=== PATIENT | male | born 1945 | race Caucasian/White ===

== ENCOUNTER 2023-07-28 15:12 | Inpatient (IN) | payer MEDICARE, OTHER, SELFPAY ==
--- NOTE | ~2023-07-28 | XR_ITS ---
EXAMINATION: RADIOGRAPH SKULL, CHEST AND ABDOMEN CLINICAL INDICATION: Pre-MRI screening. COMPARISON: No similar priors. TECHNIQUE: 2 views of the skull. 2 views of the chest. Single AP supine view of the abdomen. FINDINGS: No unexpected radiopaque foreign bodies. Left humeral head surgical anchors are seen. Normal appearance of the cardiomediastinal silhouette. No focal airspace opacities, pleural effusion or pneumothorax. Nonobstructive bowel gas pattern. Moderate to large degree of colonic stool burden. No acute osseous findings. XR/XR pre mri screening IMPRESSION: 1. No unexpected radiopaque foreign bodies. 2. Clear lungs. 3. Nonobstructive bowel gas pattern. 4. Moderate to large degree of colonic stool burden.
--- NOTE | ~2023-07-28 | XR_ITS ---
EXAMINATION: XR HAND, LEFT CLINICAL INFORMATION: Fracture evaluation COMPARISON: None available. TECHNIQUE: PA, lateral, and oblique views of the left hand. FINDINGS: Advanced degenerative change observed at the first MCP joint. The second through fifth PIP and DIP joints appear unremarkable. There is advanced degenerative change seen, in the radial aspect of the wrist including the first CMC joint. There is no evidence though for fracture, dislocation, or destructive process. XR/XR hand LT 2V IMPRESSION: No fracture seen.
--- NOTE | ~2023-07-28 | MR_ITS ---
EXAMINATION: MR BRAIN WITHOUT CONTRAST CLINICAL INFORMATION: Evaluate for Wernicke Korsakoff syndrome COMPARISON: None. TECHNIQUE: MRI of the brain was obtained using routine sequences without contrast. FINDINGS: No acute infarct. No acute intracranial hemorrhage or extra-axial fluid collection. Moderate global cerebral volume loss. Trace nonspecific T2 FLAIR hyperintensity in the periventricular white matter. Focal gliosis versus chronic lacunar infarct along the callososeptal interface of the right body of the corpus callosum. No findings to suggest Wernicke encephalopathy. Specifically, no evidence of signal abnormality or diffusion restriction involving the mammillary bodies, medial thalami, or periaqueductal andrew matter. No mass lesion, mass effect, or herniation pattern. Normal intracranial arterial and dural venous sinus flow voids. Normal appearance of the midline structures. The orbits are grossly unremarkable. Trace ethmoid air cell mucosal thickening. Left mastoid effusion. Partially imaged cervical spondylosis, including hypertrophic facet arthropathy. MR/MR head/brain wo con IMPRESSION: No acute intracranial abnormality. No findings to suggest Wernicke encephalopathy.
--- NOTE | ~2023-07-28 | XR_ITS ---
EXAMINATION: XR SHOULDER, RIGHT CLINICAL INFORMATION: History of surgery, rule out metal prior to MRI COMPARISON: None available. TECHNIQUE: AP external rotation, Grashey, scapular Y, views of the right shoulder. FINDINGS: No fracture or dislocation is evident. Calcification is evident adjacent to the humeral head, likely reflecting calcific tendinosis. No metallic foreign body is evident. XR/XR shoulder RT min 2V IMPRESSION: 1. No metallic foreign body. 2. Calcification adjacent to the humeral head likely on the basis of calcific tendinosis.
[2023-07-28 15:46] VITALS: BP 101/55; PULSE 78; RESP 18; TEMP 36.8; O2SAT 98; BMI 19.6
--- NOTE | 2023-07-28 15:56 | PC.ADMIT ---
Addendum entered by Kaye Spencer RN 07/28/23 16:03: Patient's phone is not charged so he is unable to retrieve the phone number for Ernestina Landers his significant other. Original Note: 78 year old white male admitted to [facility] at 1525 via ambulance from [facility] medical floor for short term geriatric psychiatric stay for Paranoid delusions. Patient also has diagnoses of alcohol use, cognitive decline, Glaucoma, migraines and advanced dementia. Patient is calm and cooperative. he is talkative. He signed a CV. He is independently ambulatory with a steady gait. He thinks that he is here because he had a fall. His son Santa is his HCP, . He has a significant other Ernestina who he said can also have information. 98.2-18-78-98% O2 Sat on room air and B/P 101/55. Skin is clear. Weight 133 pounds standing. He has allergies to mold and sulfa. He is oriented person and time, confused about place and situation.
--- NOTE | 2023-07-28 19:07 | P.CONHOSP_ITS ---
History of Present Illness Data of Consult Service Date: 07/28/23 Requesting physician: Pancho Lee Primary Care Provider: Unknown Physician HPI Reason for consult: medical H&p 78 year old male with history of alcohol use disorder and dementia admitted to geriatric psychiatry with consult placed to hospitalist service for medical H&P. While at [facility], hematology studies were unremarkable. Renal function was baseline, electrolyte levels normal. Glucose normal. No complaints except for an occasional dry cough which started Friday. No associated symptoms including fevers, chills, sore throat, congestion, abdominal pain, nausea, vomiting, diarrhea, shortness of breath, wheezing, chest pain. No known sick contacts. He is a former smoker who quit 12 years ago. He does report daily alcohol use and has cut back to 2 beers on a daily basis. No drug use. Also reporting occasional bilateral low back pain with radiation into the legs. No known trauma. No weakness or paresthesias. No saddle anesthesia or acute bowel/bladder dysfunction. Review of Systems Review of Systems: General: No fevers, malaise, unintentional weight loss HEENT: No blurred vision, diplopia. No sore throat, nasal congestion, rhinorrhea, sinus pain, ear pain Cardiovascular: No chest pain, palpitations, or leg edema Respiratory: No shortness of breath, wheezing. +cough GI: No abdominal pain, nausea, vomiting, diarrhea, constipation, melena, hematochezia : No dysuria, hematuria, increased urinary frequency, decreased urinary output MSK: No myalgia. +back pain Neuro: No headaches, weakness, paresthesias Skin: No rashes or lesions PMFSH Medical History Alcohol use disorder Dementia Social History Household Members: None Housing: Apartment Do you presently have visiting nurse or other home services: Yes Patient Tobacco Use Status: Former Tobacco user Tobacco use type: Cigarette Smoked in Last 30 Days: No e-Cigarette/Vaping Use: Never Used Patient Interested in Nicotine Replacement: No Patient Given Instructions on How to Stop Smoking: No Second Hand Smoke Exposure: No Use of substances other than those prescribed or required for medical reasons: No Last Used Substance: Unknown Currently Displaying Signs/Symptoms of Drug Intoxication Withdrawal: No Any prior treatment program specific to substance use: No Have you been hit, kicked, punched, or otherwise hurt by someone within the past year? If so, by whom?: No Do you feel safe in your current relationship?: Yes Is there a partner from a previous relationship who is making you feel unsafe now?: No Are you made to feel afraid or neglected: No [employer] Healthcare Practices: [facility] Advance Directives: No Advance Directives Information Provided: No Do you have a plan to hurt others: No Plan Recently lost weight without trying: No Eating poorly because of decreased appetite: No Nutrition Risks: No Nutritional Risk Poor oral hygiene: No Meds Allergies Allergy/AdvReac Type Severity Reaction Status Date / Time Sulfa (Sulfonamide Allergy Severe ANAPHYLAXIS Unverified 11/11/19 17:55 Antibiotics) [SULFA (SULFONAMIDE ANTIBIOTICS)] Active Medications: Current Medications Acetaminophen (Acetaminophen 325 Mg Tablet) 650 mg PO Q6H PRN PRN Reason: Headache/Pain Mild Scale (1-3) Al Hydroxide/Mg Hydroxide (Magnesium Hydrox/Alum Hydrox 30 Ml Oral.Susp) 30 ml PO Q6H PRN PRN Reason: Heartburn/Nausea Guaifenesin (Guaifenesin 200 Mg/10 Ml 10 Ml Liquid) 10 ml PO Q6H PRN PRN Reason: Cough Hydroxyzine HCl (Hydroxyzine Hcl 25 Mg Tablet) 25 mg PO Q6H PRN PRN Reason: Anxiety Lidocaine (Lidocaine 4 % Patch Adh..Patch) 2 patch TRANSDERMA DAILY PRN; Protocol PRN Reason: bilateral low back pain Magnesium Hydroxide (Milk Of Magnesia 30 Ml Oral.Susp) 30 ml PO DAILY PRN PRN Reason: Constipation Trazodone HCl (Trazodone Hcl 50 Mg Tablet) 50 mg PO BEDTIME MRX1 PRN PRN Reason: Insomnia Home Medications ?Medication ?Instructions ?Recorded ?Confirmed ?Last Taken ?Type brimonidine 0.15 % eye drops 1 drp ophthalmic (eye) 3XD Glaucoma 07/28/23 07/28/23 07/28/23 08:44 History 0.2% naltrexone microspheres 380 mg 380 mg IM ONCE 07/28/23 07/28/23 06/18/23 History intramuscular suspension,extended release (Vivitrol) rimegepant 75 mg disintegrating 75 mg PO Q24H PRN Migraine Headache 07/28/23 07/28/23 Unknown History tablet ([facility] ODT) thiamine HCl (vitamin B1) 100 mg 100 mg PO 1XD supplement 07/28/23 07/28/23 07/28/23 08:44 History tablet Physical Exam Vital Signs and Narrative: Vital Signs: Last Vital Signs Temp 98.2 F 07/28/23 15:46 Pulse 78 07/28/23 15:46 Resp 18 07/28/23 15:46 BP 101/55 L 07/28/23 15:46 Pulse Ox 98 07/28/23 15:46 O2 Del Method Room Air 07/28/23 15:46 BMI result Body Mass Index 19.6 Constitutional - Awake and Alert, No apparent distress Eyes - PERRLA, EOMI Cardiovascular - S1S2, RRR, No edema Respiratory - Normal lung expansion, Normal respiratory effort, No respiratory distress, CTA bilaterally Gastrointestinal - NT / ND; +BS; No rebound or guarding Extremities - no calf tenderness bilaterally, no swelling Musculoskeletal - Normal inspection, normal ROM Skin - Warm/Dry Neurological - Alert & oriented x3, CN II-XII in tact, 5/5 strength BUE and BLE Psychological - Appropriate affect Assessment and Plan (1) Routine medical exam: Status: Acute Plan 78 year old male with history of alcohol use disorder and dementia admitted to geriatric psychiatry with consult placed to hospitalist service for medical H&P. # unspecified dementia -plan per Psychiatry. Patient is alert and oriented x3 on exam and pleasant # alcohol use disorder -plan per Psychiatry -recommend continuing thiamine # bilateral low back pain with right-sided radiculopathy -Tylenol p.r.n., lidocaine patches p.r.n. # acute cough -suspect viral versus allergic -check COVID-19, RSV, influenza -guaifenesin p.r.n. Thank you for allowing me to participate in this consult. Signing off at this time. Please do not hesitate to call for further questions or for any acute medical issues.
[2023-07-28 19:49] VITALS: BP 176/77; PULSE 91; RESP 16; TEMP 37.5; O2SAT 98
[2023-07-28] MEDS: Lidocaine 4 % Patch ADH..PATCH 2 PATCH TRANSDERMA (20:56)
[2023-07-28] MEDS: traZODone HCL 50 MG TABLET PO ×2 (20:59→23:49)
[2023-07-28] MEDS: Acetaminophen 325 MG TABLET 650 MG PO (21:00)
[2023-07-28] MEDS: Thiamine HCL 100 MG TABLET PO (21:00)
[2023-07-28] MEDS: Brimonidine Tartrate 0.2% Oph 5 ML BOTTLE 1 DROP EYE-BOTH (21:40)
[2023-07-28] MEDS: QUEtiapine Fumarate 25 MG TABLET PO (22:22)
[2023-07-29] MEDS: Acetaminophen 325 MG TABLET 650 MG PO ×2 (03:17→14:54)
[2023-07-29 03:19] VITALS: BP 148/74; PULSE 106; RESP 16; O2SAT 98
--- NOTE | 2023-07-29 08:01 | P.HPPS_ITS ---
[facility] Date of Service: 07/29/23 Chief Complaint: Adjustment disorder,w/mixed disturbance of emotion Sources of Information: patient interviewed, chart reviewed and crisis/core team assessment reviewed HPI Subjective Notes: Castro Warning and Conditional Voluntary Narrative: The patient is a 78-year-old male, single, father of 2 adult children, retired Community Mental Health worker, living alone with some social support referred from the emergency room of another hospital for cognitive impairment, auditory hallucinations and disorganized behavior in the context of alcohol use disorder chronic and progressive deterioration in his cognition. The patient was rushed to the emergency room, medically cleared, assessed by crisis and transferring to this facility for psychiatric stabilization. On admission the patient was pleasant, confused but easily redirectable he denies active symptoms of alcohol withdrawal, he was already assessed in the emergency room about possibility of alcohol withdrawal and there were no evidence of that. On the intake interview, the patient reported that he was not feeling well for the last month with headaches, confusion and poor short-term memory. The patient was a very poor historian during the interview but apparently he minimized his alcohol use disorder. On admission he denies auditory hallucinations or paranoia and he adamantly denies any psychotic symptoms. According to the crisis assessment the patient has hallucinations and delusions and they were thinking of most likely Wernicke-Korsakoff syndrome. The patient was able to contract for safety he adamantly denies active depressive symptoms even though that in the past he was treated with antidepressants. He was unable to provide a list of prior trials. We will try to gather more collateral information since the patient is unable to provide more details. Past Psychiatric History: The patient reported that he had been following outpatient services in the [facility] clinic he has tried antidepressants in the past probably for the last 5 years. He reported that he was admitted in the hospital for psychiatric reasons in the past unable to provide any details. Medical Evaluation Reviewed: Yes [facility] Medical History (Updated 07/29/23 @ 08:02 by Jonh Kat) Alcohol use disorder Dementia Family History: He reported that 1 of his son suffers from depression Social History: The patient is the oldest of 2 children, his milestones were achieved at expected age and he was raised by his parents. He reported that he went to college and he has to decrease and he has worked as a community mental health worker and also in other jobs. He lives with his life partner at this moment. Substance History: He denies current use of opioids or cocaine, he minimized his use of alcohol he denies current use of tobacco he quit several years ago. Trauma History: Denies Diagnostics Vital Signs (24Hr): Vital Signs - 24 hr 07/28/23 15:46 07/28/23 19:49 07/29/23 03:19 Temperature 98.2 F 99.5 F Pulse Rate 78 91 106 H Respiratory Rate 18 16 16 Blood Pressure 101/55 L 176/77 H 148/74 H Pulse Oximetry 98 98 98 Oxygen Delivery Method Room Air Room Air Room Air BMI result Body Mass Index 19.6 Labs 07/29/23 08:35 Meds/Allergies Meds Home Medications ?Medication ?Instructions ?Recorded ?Confirmed ?Type brimonidine 0.15 % eye drops 1 drp ophthalmic (eye) 3XD Glaucoma 07/28/23 07/28/23 History naltrexone microspheres 380 mg 380 mg IM ONCE 07/28/23 07/28/23 History intramuscular suspension,extended release (Vivitrol) rimegepant 75 mg disintegrating 75 mg PO Q24H PRN Migraine Headache 07/28/23 07/28/23 History tablet (Nurtec ODT) thiamine HCl (vitamin B1) 100 mg 100 mg PO 1XD supplement 07/28/23 07/28/23 History tablet Allergies Allergies Allergy/AdvReac Type Severity Reaction Status Date / Time Sulfa (Sulfonamide Allergy Severe ANAPHYLAXIS Unverified 11/11/19 17:55 Antibiotics) [SULFA (SULFONAMIDE ANTIBIOTICS)] Mental Status Exam Mental Status Exam Patient Appearance: Appropriate (On hospital gowns) Patient Orientation: Person and Situation Level of Consciousness: Awake and Appropriate Patient Behavior: Guarded and Passive Mood Description: Withdrawn Affect Description: Constricted Patient Cognition Impaired: Yes Ability to Follow Directions: Good Speech Pattern: Clear Hallucinations: None Delusions: Ideas of Reference Thought Process: Distracted and Slowed Thinking Thought Content: positive for [place], positive for [place] and positive for Poverty of Content Judgement: Fair Assessment & Plan Assessment & Plan (1) Alcohol abuse with alcohol-induced mental disorder: Status: Acute Code(s): F10.188 - Alcohol abuse with other alcohol-induced disorder Plan The patient is a 78-year-old male with a past history of alcohol use disorder who was brought to the emergency room of another hospital for psychotic symptoms at the this moment currently denies. 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 Plan 1. Gather collateral information. We will try to contact his family and start working on proper diagnosis and treatment plan. 2. Continue with medications as prescribed. 3. We will continue with medical workout. 4. MRI without contrast scheduled tomorrow to rule out Wernicke-Korsakoff. 5. 15 minute checks since the patient is able to contract for safety. Patient educated on: diagnosis and therapeutic strategies Reason for continued inpatient stay Substantial Risk for: inability to function, rapid decompensation and med/psych decompensation Statement Statement: I have reviewed the history and physical and performed a pertinent examination on my patient. No changes have occurred unless specified. If the History and Physical was not performed prior to admission, the Hospitalist's service will be consulted for completing the admission physical. Time Spent With Patient Time: Total time managing care of this patient today __45__ minutes.
[2023-07-29 08:50] LABS: Influenza A PCR NEGATIVE (Negative); Influenza B PCR NEGATIVE (Negative); Resp Syncy Virus RNA Qual PCR NEGATIVE (Negative); SARS COV2 PCR INHOUSE NEGATIVE (Negative)
[2023-07-29 09:04] LABS: Alanine Aminotransferase 14 U/L (0-40); Albumin Level 3.5 g/dL (3.5-5.0); Alkaline Phosphatase 47 U/L (39-117); Anion Gap 12 (12-20); Aspartate Amino Transferase 21 U/L (5-37); Bilirubin Total 1.1 mg/dL (0.0-1.0); Blood Urea Nitrogen 17 mg/dL (9-16); Calcium 9.6 mg/dL (8.4-10.2); Carbon Dioxide 28 mmol/L (22-29); Chloride 103 mmol/L (96-108); Cholesterol 173 mg/dL (<200); Creatinine Clr Calc Pharmacy 57.4; Estimated Glomerular Filt Rate > 60; Glucose Fasting 109 mg/dL (60-99); HDL Cholesterol 77 mg/dL (>40); LDL Cholesterol Calculated 85 mg/dL (<100); Sodium 139 mmol/L (135-145); Total Protein 6.8 g/dL (6.5-8.0); Triglycerides 56 mg/dL (<150)
[2023-07-29 13:48] VITALS: BP 137/65; PULSE 87; RESP 18; TEMP 37.8; O2SAT 99
[2023-07-29] MEDS: Brimonidine Tartrate 0.2% Oph 5 ML BOTTLE 1 DROP EYE-BOTH ×2 (14:55→20:12)
[2023-07-29] MEDS: Thiamine HCL 100 MG TABLET PO (14:55)
[2023-07-29] MEDS: SUMAtriptan succinate 50 MG TABLET PO (16:57)
[2023-07-29 20:00] VITALS: BP 141/67; PULSE 83; TEMP 37.1; O2SAT 99
[2023-07-29] MEDS: traZODone HCL 50 MG TABLET PO (20:12)
[2023-07-30] MEDS: Acetaminophen 325 MG TABLET 650 MG PO (01:46)
[2023-07-30] MEDS: traZODone HCL 50 MG TABLET PO (01:46)
[2023-07-30] MEDS: Lidocaine 4 % Patch ADH..PATCH 2 PATCH TRANSDERMA (01:50)
[2023-07-30 08:10] VITALS: BP 142/66; PULSE 76; RESP 18; TEMP 36.4; O2SAT 98
[2023-07-30] MEDS: Thiamine HCL 100 MG TABLET PO (08:39)
[2023-07-30] MEDS: Brimonidine Tartrate 0.2% Oph 5 ML BOTTLE 1 DROP EYE-BOTH ×3 (08:39→21:21)
--- NOTE | 2023-07-30 12:38 | P.PNPSI_ITS ---
Subjective Subjective Date of Service: 07/30/23 Reason For Visit: Adjustment disorder,w/mixed disturbance of emotion Subjective Notes: Conditional Voluntary Interim History: The nursing staff reported the patient presented himself with bright affect, cooperative very confused. Yesterday he complained of migraines and we put him back on Imitrex. He slept well last night. The social security assessor reported the son and the daughter wants him to be placed for safety. Yesterday we order MRI to rule out Wernicke-Korsakoff and assess the integrity of the mammillary bodies. Since he had surgery on his shoulder in the past and he has dental implants we order x-ray and x-ray of the head. Most likely he was of an MRI pretty soon. On interview the patient is pleasant cooperative he has been assessed by the occupational therapist regarding his cognition. Mental Status Exam Mental Status Exam Patient Appearance: Appropriate Patient Orientation: Person and Situation Level of Consciousness: Awake and Appropriate Patient Behavior: Appropriate and Passive Affect Description: Constricted Patient Cognition Impaired: Yes Ability to Follow Directions: Good Speech Pattern: Clear Hallucinations: None Delusions: Not Present Thought Process: Distracted and Slowed Thinking Thought Content: positive for [place] and positive for Poverty of Content Judgement: Poor Diagnostics Vital Signs (24Hr): Vital Signs - 24 hr 07/29/23 13:48 07/29/23 20:00 07/30/23 08:10 Temperature 100.1 F 98.7 F 97.5 F Pulse Rate 87 83 76 Respiratory Rate 18 18 Blood Pressure 137/65 141/67 H 142/66 H Pulse Oximetry 99 99 98 Oxygen Delivery Method Room Air Room Air Room Air BMI result Body Mass Index 19.6 Labs 07/29/23 08:35 Labs: Laboratory Results - last 48 hr 07/29/23 07/29/23 06:42 08:35 Sodium 139 Potassium 4.0 Chloride 103 Carbon Dioxide 28 Anion Gap 12 BUN 17 H Creatinine 0.89 Estim Creat Clear Calc 57.4 Estimated GFR > 60 Fasting Glucose 109 H Calcium 9.6 Total Bilirubin 1.1 H AST 21 ALT 14 Alkaline Phosphatase 47 Total Protein 6.8 Albumin 3.5 Triglycerides 56 Cholesterol 173 LDL Cholesterol, Calc 85 HDL Cholesterol 77 Influenza Type A (PCR) NEGATIVE Influenza Type B (PCR) NEGATIVE RSV RNA Qual (PCR) NEGATIVE SARS-CoV-2 RNA (RT-PCR) NEGATIVE Imaging Radiology Impressions: ITS Impressions Shoulder X-Ray 07/30/23 09:55 IMPRESSION: 1. No metallic foreign body. 2. Calcification adjacent to the humeral head likely on the basis of calcific tendinosis. Orbit X-Ray 07/30/23 11:07 IMPRESSION: 1. No unexpected radiopaque foreign bodies. 2. Clear lungs. 3. Nonobstructive bowel gas pattern. 4. Moderate to large degree of colonic stool burden. Medications Medications Current Medications Acetaminophen (Acetaminophen 325 Mg Tablet) 650 mg PO Q6H PRN PRN Reason: Headache/Pain Mild Scale (1-3) Last Admin: 07/30/23 01:46 Dose: 650 mg Al Hydroxide/Mg Hydroxide (Magnesium Hydrox/Alum Hydrox 30 Ml Oral.Susp) 30 ml PO Q6H PRN PRN Reason: Heartburn/Nausea Brimonidine Tartrate (Brimonidine Tartrate 0.2% Oph 5 Ml Bottle) 1 drop EYE- BOTH TID NOBLE Last Admin: 07/30/23 08:39 Dose: 1 drop Guaifenesin (Guaifenesin 200 Mg/10 Ml 10 Ml Liquid) 10 ml PO Q6H PRN PRN Reason: Cough Lidocaine (Lidocaine 4 % Patch Adh..Patch) 2 patch TRANSDERMA DAILY PRN; Protocol PRN Reason: bilateral low back pain Last Admin: 07/30/23 01:50 Dose: 2 patch Magnesium Hydroxide (Milk Of Magnesia 30 Ml Oral.Susp) 30 ml PO DAILY PRN PRN Reason: Constipation Non-Formulary Medication (Naltrexone Microspheres) 380 mg IM ONCE [facility] Non-Formulary Medication (Rimegepant [Nurtec Odt]) 75 mg PO Q24H PRN PRN Reason: Migraine Headache Quetiapine Fumarate (Quetiapine Fumarate 25 Mg Tablet) 25 mg PO BID PRN PRN Reason: anxiety/agitation Last Admin: 07/28/23 22:22 Dose: 25 mg Sumatriptan Succinate (Sumatriptan Succinate 50 Mg Tablet) 50 mg PO DAILY MRX1 PRN PRN Reason: Migraine Headache Last Admin: 07/29/23 16:57 Dose: 50 mg Thiamine HCl (Thiamine Hcl 100 Mg Tablet) 100 mg PO DAILY NOBLE Last Admin: 07/30/23 08:39 Dose: 100 mg Trazodone HCl (Trazodone Hcl 50 Mg Tablet) 50 mg PO BEDTIME MRX1 PRN PRN Reason: Insomnia Last Admin: 07/30/23 01:46 Dose: 50 mg Allergies Allergies Allergy/AdvReac Type Severity Reaction Status Date / Time Sulfa (Sulfonamide Allergy Severe ANAPHYLAXIS Unverified 11/11/19 17:55 Antibiotics) [SULFA (SULFONAMIDE ANTIBIOTICS)] Assessment & Plan Assessment & Plan (1) Alcohol abuse with alcohol-induced mental disorder: Status: Acute Code(s): F10.188 - Alcohol abuse with other alcohol-induced disorder Plan The patient is a 78-year-old male with a past history of alcohol use disorder who was brought to the emergency room of another hospital for psychotic symptoms at the this moment currently denies. 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 Plan 1. Gather collateral information. We will try to contact his family and start working on proper diagnosis and treatment plan. 2. Continue with medications as prescribed. 3. We will continue with medical workout. 4. MRI without contrast scheduled tomorrow to rule out Wernicke-Korsakoff. 5. 15 minute checks since the patient is able to contract for safety. Reason for continued inpatient stay Substantial Risk for: inability to function, rapid decompensation and med/psych decompensation Time Spent With Patient Time: Total time managing care of this patient today __20__ minutes.
[2023-07-30 20:00] VITALS: BP 170/82; PULSE 105; RESP 1; TEMP 37.4; O2SAT 97
[2023-07-30 22:08] VITALS: BP 162/74; PULSE 87
[2023-07-31] MEDS: traZODone HCL 50 MG TABLET PO ×2 (00:02→23:52)
[2023-07-31] MEDS: Acetaminophen 325 MG TABLET 650 MG PO ×3 (00:02→23:56)
[2023-07-31] MEDS: Lidocaine 4 % Patch ADH..PATCH 2 PATCH TRANSDERMA (00:06)
--- NOTE | 2023-07-31 02:27 | PC.NURSE ---
Patient visible in milieu, socializing with female peer. Redirected for poor boundaries, noted to rub peers shoulders and had his face close to hers. Patient confused, called this particular peer Janie, staff questioning if he believes this is his current girlfriend. Patient returned to room and shortly thereafter wandered out with no shirt on again looking for Janie. Redirected. Will continue to monitor.
[2023-07-31 08:00] VITALS: BP 140/65; PULSE 102; RESP 18; TEMP 37.1; O2SAT 96
[2023-07-31] MEDS: Brimonidine Tartrate 0.2% Oph 5 ML BOTTLE 1 DROP EYE-BOTH ×3 (08:27→20:32)
[2023-07-31] MEDS: Thiamine HCL 100 MG TABLET PO (08:27)
--- NOTE | 2023-07-31 12:40 | P.PNPSI_ITS ---
Subjective Subjective Date of Service: 07/31/23 Reason For Visit: Adjustment disorder,w/mixed disturbance of emotion Subjective Notes: Conditional Voluntary Interim History: Nursing staff reported the patient had been confused he reported some anxiety and depression. The MRI came back without evidence of distraction of mammillary bodies. The occupational therapist did cognitive assessment he scored 4.0 in the Chemo test and 16/30 on the [place]. The social work manager has contact the son to get more collateral information. On interview the patient denies new symptoms he is pleasantly confused he was pleased to find out that he did not have any major neurological done in which besides the chronic microvascular disease. Mental Status Exam Mental Status Exam Patient Appearance: Appropriate Patient Orientation: Person and Situation Level of Consciousness: Disoriented and Alert Patient Behavior: Guarded and Passive Mood Description: Withdrawn Affect Description: Constricted Patient Cognition Impaired: Yes Ability to Follow Directions: Good Speech Pattern: Clear and Impoverished Hallucinations: None Delusions: Not Present Thought Process: Distracted and Linear Thought Content: positive for [place] and positive for [place] of Content Judgement: Poor Diagnostics Vital Signs (24Hr): Vital Signs - 24 hr 07/30/23 20:00 07/30/23 22:08 07/31/23 08:00 Temperature 99.4 F 98.7 F Pulse Rate 105 H 87 102 H Respiratory Rate 1 L 18 Blood Pressure 170/82 H 162/74 H 140/65 H Pulse Oximetry 97 96 Oxygen Delivery Method Room Air Room Air BMI result Body Mass Index 19.6 Labs 07/29/23 08:35 Imaging Radiology Impressions: ITS Impressions Shoulder X-Ray 07/30/23 09:55 IMPRESSION: 1. No metallic foreign body. 2. Calcification adjacent to the humeral head likely on the basis of calcific tendinosis. Orbit X-Ray 07/30/23 11:07 IMPRESSION: 1. No unexpected radiopaque foreign bodies. 2. Clear lungs. 3. Nonobstructive bowel gas pattern. 4. Moderate to large degree of colonic stool burden. Brain MRI 07/30/23 20:40 IMPRESSION: No acute intracranial abnormality. No findings to suggest Wernicke encephalopathy. Medications Medications Current Medications Acetaminophen (Acetaminophen 325 Mg Tablet) 650 mg PO Q6H PRN PRN Reason: Headache/Pain Mild Scale (1-3) Last Admin: 07/31/23 12:10 Dose: 650 mg Al Hydroxide/Mg Hydroxide (Magnesium Hydrox/Alum Hydrox 30 Ml Oral.Susp) 30 ml PO Q6H PRN PRN Reason: Heartburn/Nausea Brimonidine Tartrate (Brimonidine Tartrate 0.2% Oph 5 Ml Bottle) 1 drop EYE- BOTH TID NOBLE Last Admin: 07/31/23 08:27 Dose: 1 drop Guaifenesin (Guaifenesin 200 Mg/10 Ml 10 Ml Liquid) 10 ml PO Q6H PRN PRN Reason: Cough Lidocaine (Lidocaine 4 % Patch Adh..Patch) 2 patch TRANSDERMA DAILY PRN; Protocol PRN Reason: bilateral low back pain Last Admin: 07/31/23 00:06 Dose: 2 patch Magnesium Hydroxide (Milk Of Magnesia 30 Ml Oral.Susp) 30 ml PO DAILY PRN PRN Reason: Constipation Memantine (Memantine Hcl 5 Mg Tablet) 5 mg PO BEDTIME NOBLE Non-Formulary Medication (Naltrexone Microspheres) 380 mg IM ONCE NOBLE Non-Formulary Medication (Rimegepant [Nurtec Odt]) 75 mg PO Q24H PRN PRN Reason: Migraine Headache Quetiapine Fumarate (Quetiapine Fumarate 25 Mg Tablet) 25 mg PO BID PRN PRN Reason: anxiety/agitation Last Admin: 07/28/23 22:22 Dose: 25 mg Sumatriptan Succinate (Sumatriptan Succinate 50 Mg Tablet) 50 mg PO DAILY MRX1 PRN PRN Reason: Migraine Headache Last Admin: 07/29/23 16:57 Dose: 50 mg Thiamine HCl (Thiamine Hcl 100 Mg Tablet) 100 mg PO DAILY [facility] Last Admin: 07/31/23 08:27 Dose: 100 mg Trazodone HCl (Trazodone Hcl 50 Mg Tablet) 50 mg PO BEDTIME MRX1 PRN PRN Reason: Insomnia Last Admin: 07/31/23 00:02 Dose: 50 mg Allergies Allergies Allergy/AdvReac Type Severity Reaction Status Date / Time Sulfa (Sulfonamide Allergy Severe ANAPHYLAXIS Unverified 11/11/19 17:55 Antibiotics) [SULFA (SULFONAMIDE ANTIBIOTICS)] Assessment & Plan Assessment & Plan (1) Alcohol abuse with alcohol-induced mental disorder: Status: Acute Code(s): F10.188 - Alcohol abuse with other alcohol-induced disorder Plan The patient is a 78-year-old male with a past history of alcohol use disorder who was brought to the emergency room of another hospital for psychotic symptoms at the this moment currently denies. 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 Plan 1. Gather collateral information. We will try to contact his family and start working on proper diagnosis and treatment plan. 2. Continue with medications as prescribed. 3. We will continue with medical workout. 4. MRI without contrast done that showed no destruction of pulmonary by this. 5. 15 minute checks since the patient is able to contract for safety. 6. Start Namenda 5 mg p.o. b.i.d. to target cognitive impairment due to dementia Reason for continued inpatient stay Substantial Risk for: inability to function, rapid decompensation and med/psych decompensation Time Spent With Patient Time: Total time managing care of this patient today __20__ minutes.
[2023-07-31] MEDS: QUEtiapine Fumarate 25 MG TABLET PO (18:30)
[2023-07-31 19:39] VITALS: BP 142/64; PULSE 94; RESP 18; TEMP 35.6; O2SAT 98
[2023-07-31] MEDS: Memantine HCl 5 MG TABLET PO (20:29)
[2023-08-01] MEDS: SUMAtriptan succinate 50 MG TABLET PO (00:20)
[2023-08-01] MEDS: Acetaminophen 325 MG TABLET 650 MG PO ×2 (06:26→23:46)
[2023-08-01] MEDS: Thiamine HCL 100 MG TABLET PO (07:59)
[2023-08-01] MEDS: Brimonidine Tartrate 0.2% Oph 5 ML BOTTLE 1 DROP EYE-BOTH ×3 (07:59→20:18)
[2023-08-01 08:00] VITALS: BP 122/60; PULSE 93; RESP 18; TEMP 36.6; O2SAT 98
--- NOTE | 2023-08-01 12:13 | P.PNPSI_ITS ---
Subjective Subjective Date of Service: 08/01/23 Reason For Visit: Adjustment disorder,w/mixed disturbance of emotion Subjective Notes: Conditional Voluntary Interim History: The nursing staff reported the patient had been confused, with good appetite. He required p.r.n. Seroquel at night and he slept 8 hours. He was seen wandering the unit. The social contact worker contact her son who is the [employer] healthcare proxy and they want him placed. On interview the patient is pleasantly confused, I explained about the results of his MRI no evidence of mammillary bodies distraction. We started him on Aricept 5 mg p.o. q.h.s. and we will keep Namenda for dementia. Mental Status Exam Mental Status Exam Patient Appearance: Appropriate Patient Orientation: Person and Situation Level of Consciousness: Awake and Appropriate Patient Behavior: Guarded and Passive Mood Description: Withdrawn Affect Description: Constricted Patient Cognition Impaired: Yes Ability to Follow Directions: Good Speech Pattern: Clear Hallucinations: None Delusions: Not Present Thought Process: Distracted and Slowed Thinking Thought Content: positive for [place] and positive for [place] Judgement: Poor Diagnostics Vital Signs (24Hr): Vital Signs - 24 hr 07/31/23 19:39 08/01/23 08:00 Temperature 96.0 F L 97.9 F Pulse Rate 94 93 Respiratory Rate 18 18 Blood Pressure 142/64 H 122/60 Pulse Oximetry 98 98 Oxygen Delivery Method Room Air Room Air BMI result Body Mass Index 20.0 Labs 07/29/23 08:35 Imaging Radiology Impressions: ITS Impressions Shoulder X-Ray 07/30/23 09:55 IMPRESSION: 1. No metallic foreign body. 2. Calcification adjacent to the humeral head likely on the basis of calcific tendinosis. Orbit X-Ray 07/30/23 11:07 IMPRESSION: 1. No unexpected radiopaque foreign bodies. 2. Clear lungs. 3. Nonobstructive bowel gas pattern. 4. Moderate to large degree of colonic stool burden. Brain MRI 07/30/23 20:40 IMPRESSION: No acute intracranial abnormality. No findings to suggest Wernicke encephalopathy. Medications Medications Current Medications Acetaminophen (Acetaminophen 325 Mg Tablet) 650 mg PO Q6H PRN PRN Reason: Headache/Pain Mild Scale (1-3) Last Admin: 08/01/23 06:26 Dose: 650 mg Al Hydroxide/Mg Hydroxide (Magnesium Hydrox/Alum Hydrox 30 Ml Oral.Susp) 30 ml PO Q6H PRN PRN Reason: Heartburn/Nausea Brimonidine Tartrate (Brimonidine Tartrate 0.2% Oph 5 Ml Bottle) 1 drop EYE- BOTH TID [facility] Last Admin: 08/01/23 07:59 Dose: 1 drop Donepezil HCl (Donepezil Hcl 5 Mg Tablet) 5 mg PO BEDTIME NOBLE Guaifenesin (Guaifenesin 200 Mg/10 Ml 10 Ml Liquid) 10 ml PO Q6H PRN PRN Reason: Cough Lidocaine (Lidocaine 4 % Patch Adh..Patch) 2 patch TRANSDERMA DAILY PRN; Protocol PRN Reason: bilateral low back pain Last Admin: 07/31/23 00:06 Dose: 2 patch Magnesium Hydroxide (Milk Of Magnesia 30 Ml Oral.Susp) 30 ml PO DAILY PRN PRN Reason: Constipation Memantine (Memantine Hcl 5 Mg Tablet) 5 mg PO BEDTIME [facility] Last Admin: 07/31/23 20:29 Dose: 5 mg Non-Formulary Medication (Naltrexone Microspheres) 380 mg IM ONCE NOBLE Non-Formulary Medication (Rimegepant [Nurtec Odt]) 75 mg PO Q24H PRN PRN Reason: Migraine Headache Quetiapine Fumarate (Quetiapine Fumarate 25 Mg Tablet) 25 mg PO BID PRN PRN Reason: anxiety/agitation Last Admin: 07/31/23 18:30 Dose: 25 mg Sumatriptan Succinate (Sumatriptan Succinate 50 Mg Tablet) 50 mg PO DAILY MRX1 PRN PRN Reason: Migraine Headache Last Admin: 08/01/23 00:20 Dose: 50 mg Thiamine HCl (Thiamine Hcl 100 Mg Tablet) 100 mg PO DAILY [facility] Last Admin: 08/01/23 07:59 Dose: 100 mg Trazodone HCl (Trazodone Hcl 50 Mg Tablet) 50 mg PO BEDTIME MRX1 PRN PRN Reason: Insomnia Last Admin: 07/31/23 23:52 Dose: 50 mg Allergies Allergies Allergy/AdvReac Type Severity Reaction Status Date / Time Sulfa (Sulfonamide Allergy Severe ANAPHYLAXIS Unverified 11/11/19 17:55 Antibiotics) [SULFA (SULFONAMIDE ANTIBIOTICS)] Assessment & Plan Assessment & Plan (1) Alcohol abuse with alcohol-induced mental disorder: Status: Acute Code(s): F10.188 - Alcohol abuse with other alcohol-induced disorder Plan The patient is a 78-year-old male with a past history of alcohol use disorder who was brought to the emergency room of another hospital for psychotic symptoms at the this moment currently denies. 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 Plan 1. Gather collateral information. We will try to contact his family and start working on proper diagnosis and treatment plan. 2. Continue with medications as prescribed. 3. We will continue with medical workout. 4. MRI without contrast done that showed no destruction of pulmonary by this. 5. 15 minute checks since the patient is able to contract for safety.. 6. Start Namenda 5 mg p.o. b.i.d. to target cognitive impairment due to dementia. 7. Even though that his dementia is advanced, we will start Aricept 5 mg p.o. q.h.s. in combination with Namenda since it can help on diminishing the progression of his cognitive impairment. Reason for continued inpatient stay Substantial Risk for: inability to function, rapid decompensation and med/psych decompensation Time Spent With Patient Time: Total time managing care of this patient today __20__ minutes.
[2023-08-01 20:00] VITALS: BP 148/65; PULSE 84; RESP 16; TEMP 37.2; O2SAT 99
[2023-08-01] MEDS: Memantine HCl 5 MG TABLET PO (20:18)
[2023-08-01] MEDS: Donepezil HCl 5 MG TABLET PO (20:18)
[2023-08-02 08:00] VITALS: BP 147/70; PULSE 70; RESP 18; TEMP 36.6; O2SAT 99
[2023-08-02] MEDS: Thiamine HCL 100 MG TABLET PO (08:46)
[2023-08-02] MEDS: Acetaminophen 325 MG TABLET 650 MG PO ×2 (08:46→23:48)
[2023-08-02] MEDS: Lidocaine 4 % Patch ADH..PATCH 2 PATCH TRANSDERMA (08:47)
[2023-08-02] MEDS: Brimonidine Tartrate 0.2% Oph 5 ML BOTTLE 1 DROP EYE-BOTH ×3 (09:46→20:10)
--- NOTE | 2023-08-02 11:16 | P.PNPSI_ITS ---
Subjective Subjective Date of Service: 08/02/23 Reason For Visit: Adjustment disorder,w/mixed disturbance of emotion Interim History: calm, cooperative. no urgent needs. states he is feeling pretty well though and would like to discuss discharge planning. he was referred to speak with his attending on friday. per staff, delusional. c/o LBP and getting tylenol and lidocaine patch. chatty. wanders some but easily redirectable. Mental Status Exam Mental Status Exam Patient Appearance: Appropriate Patient Orientation: Person and Situation Level of Consciousness: Awake and Appropriate Patient Behavior: Guarded and Passive Mood Description: Withdrawn Affect Description: Relaxed Patient Cognition Impaired: Yes Ability to Follow Directions: Good Speech Pattern: Clear Hallucinations: None Delusions: Not Present Thought Process: Distracted and Slowed Thinking Thought Content: positive for [place] and positive for [place] Judgement: Poor Diagnostics Vital Signs (24Hr): Vital Signs - 24 hr 08/01/23 20:00 08/02/23 08:00 Temperature 99 F 98 F Pulse Rate 84 70 Respiratory Rate 16 18 Blood Pressure 148/65 H 147/70 H Pulse Oximetry 99 99 Oxygen Delivery Method Room Air Room Air BMI result Body Mass Index 20.0 Labs 07/29/23 08:35 Imaging Radiology Impressions: ITS Impressions Shoulder X-Ray 07/30/23 09:55 IMPRESSION: 1. No metallic foreign body. 2. Calcification adjacent to the humeral head likely on the basis of calcific tendinosis. Orbit X-Ray 07/30/23 11:07 IMPRESSION: 1. No unexpected radiopaque foreign bodies. 2. Clear lungs. 3. Nonobstructive bowel gas pattern. 4. Moderate to large degree of colonic stool burden. Brain MRI 07/30/23 20:40 IMPRESSION: No acute intracranial abnormality. No findings to suggest Wernicke encephalopathy. Medications Medications Current Medications Acetaminophen (Acetaminophen 325 Mg Tablet) 650 mg PO Q6H PRN PRN Reason: Headache/Pain Mild Scale (1-3) Last Admin: 08/02/23 08:46 Dose: 650 mg Al Hydroxide/Mg Hydroxide (Magnesium Hydrox/Alum Hydrox 30 Ml Oral.Susp) 30 ml PO Q6H PRN PRN Reason: Heartburn/Nausea Brimonidine Tartrate (Brimonidine Tartrate 0.2% Oph 5 Ml Bottle) 1 drop EYE- BOTH TID [facility] Last Admin: 08/02/23 09:46 Dose: 1 drop Donepezil HCl (Donepezil Hcl 5 Mg Tablet) 5 mg PO BEDTIME [facility] Last Admin: 08/01/23 20:18 Dose: 5 mg Guaifenesin (Guaifenesin 200 Mg/10 Ml 10 Ml Liquid) 10 ml PO Q6H PRN PRN Reason: Cough Lidocaine (Lidocaine 4 % Patch Adh..Patch) 2 patch TRANSDERMA DAILY PRN; Protocol PRN Reason: bilateral low back pain Last Admin: 08/02/23 08:47 Dose: 2 patch Magnesium Hydroxide (Milk Of Magnesia 30 Ml Oral.Susp) 30 ml PO DAILY PRN PRN Reason: Constipation Memantine (Memantine Hcl 5 Mg Tablet) 5 mg PO BEDTIME NO[facility] Last Admin: 08/01/23 20:18 Dose: 5 mg Non-Formulary Medication (Naltrexone Microspheres) 380 mg IM ONCE NO[facility] Non-Formulary Medication (Rimegepant [Nurtec Odt]) 75 mg PO Q24H PRN PRN Reason: Migraine Headache Quetiapine Fumarate (Quetiapine Fumarate 25 Mg Tablet) 25 mg PO BID PRN PRN Reason: anxiety/agitation Last Admin: 07/31/23 18:30 Dose: 25 mg Sumatriptan Succinate (Sumatriptan Succinate 50 Mg Tablet) 50 mg PO DAILY MRX1 PRN PRN Reason: Migraine Headache Last Admin: 08/01/23 00:20 Dose: 50 mg Thiamine HCl (Thiamine Hcl 100 Mg Tablet) 100 mg PO DAILY [facility] Last Admin: 08/02/23 08:46 Dose: 100 mg Trazodone HCl (Trazodone Hcl 50 Mg Tablet) 50 mg PO BEDTIME MRX1 PRN PRN Reason: Insomnia Last Admin: 07/31/23 23:52 Dose: 50 mg Allergies Allergies Allergy/AdvReac Type Severity Reaction Status Date / Time Sulfa (Sulfonamide Allergy Severe ANAPHYLAXIS Unverified 11/11/19 17:55 Antibiotics) [SULFA (SULFONAMIDE ANTIBIOTICS)] Assessment & Plan Assessment & Plan (1) Alcohol abuse with alcohol-induced mental disorder: Status: Acute Code(s): F10.188 - Alcohol abuse with other alcohol-induced disorder Plan The patient is a 78-year-old male with a past history of alcohol use disorder who was brought to the emergency room of another hospital for psychotic symptoms at the this moment currently denies. 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 Plan 1. Gather collateral information. We will try to contact his family and start working on proper diagnosis and treatment plan. 2. Continue with medications as prescribed. 3. We will continue with medical workout. 4. MRI without contrast done that showed no destruction of pulmonary by this. 5. 15 minute checks since the patient is able to contract for safety.. 6. Start Namenda 5 mg p.o. b.i.d. to target cognitive impairment due to dementia. 7. Even though that his dementia is advanced, we will start Aricept 5 mg p.o. q.h.s. in combination with Namenda since it can help on diminishing the progression of his cognitive impairment. Reason for continued inpatient stay Substantial Risk for: inability to function Time Spent With Patient Time: Total time managing care of this patient today ____ minutes.
[2023-08-02] MEDS: SUMAtriptan succinate 50 MG TABLET PO (14:04)
[2023-08-02 20:00] VITALS: BP 140/71; PULSE 79; RESP 16; TEMP 36.3; O2SAT 97
[2023-08-02] MEDS: traZODone HCL 50 MG TABLET PO ×2 (20:08→21:41)
[2023-08-02] MEDS: Memantine HCl 5 MG TABLET PO (20:08)
[2023-08-02] MEDS: Donepezil HCl 5 MG TABLET PO (20:08)
[2023-08-03 08:41] VITALS: BP 118/73; PULSE 72; RESP 18; TEMP 36.6; O2SAT 97
[2023-08-03] MEDS: Acetaminophen 325 MG TABLET 650 MG PO ×2 (08:43→20:21)
[2023-08-03] MEDS: Thiamine HCL 100 MG TABLET PO (08:44)
[2023-08-03] MEDS: Lidocaine 4 % Patch ADH..PATCH 2 PATCH TRANSDERMA (08:45)
[2023-08-03] MEDS: Brimonidine Tartrate 0.2% Oph 5 ML BOTTLE 1 DROP EYE-BOTH ×3 (08:45→20:22)
--- NOTE | 2023-08-03 11:35 | HO.PSYCHPN ---
Subjective Subjective Date of Service: 08/03/23 Reason For Visit: Adjustment disorder,w/mixed disturbance of emotion Interim History: no change in presentation. per staff, no change. chatty, not oriented, easily redirected. taking meds. Mental Status Exam Mental Status Exam Patient Appearance: Appropriate Patient Orientation: Person and Situation Level of Consciousness: Awake and Appropriate Patient Behavior: Guarded and Passive Mood Description: Withdrawn Affect Description: Relaxed Patient Cognition Impaired: Yes Ability to Follow Directions: Good Speech Pattern: Clear Hallucinations: None Delusions: Not Present Thought Process: Distracted and Slowed Thinking Thought Content: positive for [place] and positive for [place] Judgement: Poor Diagnostics Vital Signs (24Hr): Vital Signs - 24 hr 08/02/23 20:00 08/03/23 08:41 Temperature 97.4 F 98 F Pulse Rate 79 72 Respiratory Rate 16 18 Blood Pressure 140/71 H 118/73 Pulse Oximetry 97 97 Oxygen Delivery Method Room Air Room Air BMI result Body Mass Index 20.0 Labs 07/29/23 08:35 Imaging Radiology Impressions: ITS Impressions Shoulder X-Ray 07/30/23 09:55 IMPRESSION: 1. No metallic foreign body. 2. Calcification adjacent to the humeral head likely on the basis of calcific tendinosis. Orbit X-Ray 07/30/23 11:07 IMPRESSION: 1. No unexpected radiopaque foreign bodies. 2. Clear lungs. 3. Nonobstructive bowel gas pattern. 4. Moderate to large degree of colonic stool burden. Brain MRI 07/30/23 20:40 IMPRESSION: No acute intracranial abnormality. No findings to suggest Wernicke encephalopathy. Medications Medications Current Medications Acetaminophen (Acetaminophen 325 Mg Tablet) 650 mg PO Q6H PRN PRN Reason: Headache/Pain Mild Scale (1-3) Last Admin: 08/03/23 08:43 Dose: 650 mg Al Hydroxide/Mg Hydroxide (Magnesium Hydrox/Alum Hydrox 30 Ml Oral.Susp) 30 ml PO Q6H PRN PRN Reason: Heartburn/Nausea Brimonidine Tartrate (Brimonidine Tartrate 0.2% Oph 5 Ml Bottle) 1 drop EYE-BOTH TID [facility] Last Admin: 08/03/23 08:45 Dose: 1 drop Donepezil HCl (Donepezil Hcl 5 Mg Tablet) 5 mg PO BEDTIME [facility] Last Admin: 08/02/23 20:08 Dose: 5 mg Guaifenesin (Guaifenesin 200 Mg/10 Ml 10 Ml Liquid) 10 ml PO Q6H PRN PRN Reason: Cough Lidocaine (Lidocaine 4 % Patch Adh..Patch) 2 patch TRANSDERMA DAILY PRN; Protocol PRN Reason: bilateral low back pain Last Admin: 08/03/23 08:45 Dose: 2 patch Magnesium Hydroxide (Milk Of Magnesia 30 Ml Oral.Susp) 30 ml PO DAILY PRN PRN Reason: Constipation Memantine (Memantine Hcl 5 Mg Tablet) 5 mg PO BEDTIME [facility] Last Admin: 08/02/23 20:08 Dose: 5 mg Quetiapine Fumarate (Quetiapine Fumarate 25 Mg Tablet) 25 mg PO BID PRN PRN Reason: anxiety/agitation Last Admin: 07/31/23 18:30 Dose: 25 mg Sumatriptan Succinate (Sumatriptan Succinate 50 Mg Tablet) 50 mg PO DAILY MRX1 PRN PRN Reason: Migraine Headache Last Admin: 08/02/23 14:04 Dose: 50 mg Thiamine HCl (Thiamine Hcl 100 Mg Tablet) 100 mg PO DAILY [facility] Last Admin: 08/03/23 08:44 Dose: 100 mg Trazodone HCl (Trazodone Hcl 50 Mg Tablet) 50 mg PO BEDTIME MRX1 PRN PRN Reason: Insomnia Last Admin: 08/02/23 21:41 Dose: 50 mg Allergies Allergies Allergy/AdvReac Type Severity Reaction Status Date / Time Sulfa (Sulfonamide Allergy Severe ANAPHYLAXIS Unverified 11/11/19 17:55 Antibiotics) [SULFA (SULFONAMIDE ANTIBIOTICS)] Assessment & Plan Assessment & Plan (1) Alcohol abuse with alcohol-induced mental disorder: Status: Acute Code(s): F10.188 - Alcohol abuse with other alcohol-induced disorder Plan The patient is a 78-year-old male with a past history of alcohol use disorder who was brought to the emergency room of another hospital for psychotic symptoms at the this moment currently denies. 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 Plan 1. Gather collateral information. We will try to contact his family and start working on proper diagnosis and treatment plan. 2. Continue with medications as prescribed. 3. We will continue with medical workout. 4. MRI without contrast done that showed no destruction of pulmonary by this. 5. 15 minute checks since the patient is able to contract for safety.. 6. Start Namenda 5 mg p.o. b.i.d. to target cognitive impairment due to dementia. 7. Even though that his dementia is advanced, we will start Aricept 5 mg p.o. q.h.s. in combination with Namenda since it can help on diminishing the progression of his cognitive impairment. Reason for continued inpatient stay Substantial Risk for: inability to function Time Spent With Patient Time: Total time managing care of this patient today ____ minutes.
[2023-08-03 20:00] VITALS: BP 130/63; PULSE 85; RESP 18; TEMP 36.8; O2SAT 97
[2023-08-03] MEDS: traZODone HCL 50 MG TABLET PO (20:21)
[2023-08-03] MEDS: Donepezil HCl 5 MG TABLET PO (20:21)
[2023-08-03] MEDS: Memantine HCl 5 MG TABLET PO (20:21)
[2023-08-04] MEDS: SUMAtriptan succinate 50 MG TABLET PO (04:31)
[2023-08-04] MEDS: Acetaminophen 325 MG TABLET 650 MG PO (04:32)
[2023-08-04 07:47] VITALS: BP 135/75; PULSE 80; RESP 18; TEMP 36.6; O2SAT 97
[2023-08-04] MEDS: Thiamine HCL 100 MG TABLET PO (08:47)
[2023-08-04] MEDS: Brimonidine Tartrate 0.2% Oph 5 ML BOTTLE 1 DROP EYE-BOTH ×3 (08:48→21:00)
--- NOTE | 2023-08-04 12:30 | HO.PSYCHPN ---
Subjective Subjective Date of Service: 08/04/23 Reason For Visit: Adjustment disorder,w/mixed disturbance of emotion Subjective Notes: Conditional Voluntary Interim History: The nursing staff reported the patient had been cheerful, anxious at times but easily redirectable, very confused. He had been asking about discharge planning. He had been compliant with medications and he slept 8 hours. On interview he was confused, I explained him that he suffers from dementia and we are adding medications to target this problem. Mental Status Exam Mental Status Exam Patient Appearance: Appropriate Patient Orientation: Person and Situation Level of Consciousness: Awake and Appropriate Patient Behavior: Guarded and Passive Mood Description: Withdrawn Affect Description: Constricted Ability to Follow Directions: Good Speech Pattern: Clear Hallucinations: None Delusions: Not Present Thought Process: Disoriented and Distracted Thought Content: positive for [place] and positive for Poverty of Content Judgement: Fair Diagnostics Vital Signs (24Hr): Vital Signs - 24 hr 08/03/23 20:00 08/04/23 07:47 Temperature 98.3 F 97.9 F Pulse Rate 85 80 Respiratory Rate 18 18 Blood Pressure 130/63 135/75 Pulse Oximetry 97 97 Oxygen Delivery Method Room Air BMI result Body Mass Index 20.0 Labs 07/29/23 08:35 Imaging Radiology Impressions: ITS Impressions Shoulder X-Ray 07/30/23 09:55 IMPRESSION: 1. No metallic foreign body. 2. Calcification adjacent to the humeral head likely on the basis of calcific tendinosis. Orbit X-Ray 07/30/23 11:07 IMPRESSION: 1. No unexpected radiopaque foreign bodies. 2. Clear lungs. 3. Nonobstructive bowel gas pattern. 4. Moderate to large degree of colonic stool burden. Brain MRI 07/30/23 20:40 IMPRESSION: No acute intracranial abnormality. No findings to suggest Wernicke encephalopathy. Medications Medications Current Medications Acetaminophen (Acetaminophen 325 Mg Tablet) 650 mg PO Q6H PRN PRN Reason: Headache/Pain Mild Scale (1-3) Last Admin: 08/04/23 04:32 Dose: 650 mg Al Hydroxide/Mg Hydroxide (Magnesium Hydrox/Alum Hydrox 30 Ml Oral.Susp) 30 ml PO Q6H PRN PRN Reason: Heartburn/Nausea Brimonidine Tartrate (Brimonidine Tartrate 0.2% Oph 5 Ml Bottle) 1 drop EYE-BOTH TID [facility] Last Admin: 08/04/23 08:48 Dose: 1 drop Donepezil HCl (Donepezil Hcl 10 Mg Tablet) 10 mg PO BEDTIME NOBLE Guaifenesin (Guaifenesin 200 Mg/10 Ml 10 Ml Liquid) 10 ml PO Q6H PRN PRN Reason: Cough Lidocaine (Lidocaine 4 % Patch Adh..Patch) 2 patch TRANSDERMA DAILY PRN; Protocol PRN Reason: bilateral low back pain Last Admin: 08/03/23 08:45 Dose: 2 patch Magnesium Hydroxide (Milk Of Magnesia 30 Ml Oral.Susp) 30 ml PO DAILY PRN PRN Reason: Constipation Memantine (Memantine Hcl 5 Mg Tablet) 5 mg PO BEDTIME NOBLE Last Admin: 08/03/23 20:21 Dose: 5 mg Quetiapine Fumarate (Quetiapine Fumarate 25 Mg Tablet) 25 mg PO BID PRN PRN Reason: anxiety/agitation Last Admin: 07/31/23 18:30 Dose: 25 mg Sumatriptan Succinate (Sumatriptan Succinate 50 Mg Tablet) 50 mg PO DAILY MRX1 PRN PRN Reason: Migraine Headache Last Admin: 08/04/23 04:31 Dose: 50 mg Thiamine HCl (Thiamine Hcl 100 Mg Tablet) 100 mg PO DAILY NOBLE Last Admin: 08/04/23 08:47 Dose: 100 mg Trazodone HCl (Trazodone Hcl 50 Mg Tablet) 50 mg PO BEDTIME MRX1 PRN PRN Reason: Insomnia Last Admin: 08/03/23 20:21 Dose: 50 mg Allergies Allergies Allergy/AdvReac Type Severity Reaction Status Date / Time Sulfa (Sulfonamide Allergy Severe ANAPHYLAXIS Unverified 11/11/19 17:55 Antibiotics) [SULFA (SULFONAMIDE ANTIBIOTICS)] Assessment & Plan Assessment & Plan (1) Alcohol abuse with alcohol-induced mental disorder: Status: Acute Code(s): F10.188 - Alcohol abuse with other alcohol-induced disorder Plan The patient is a 78-year-old male with a past history of alcohol use disorder who was brought to the emergency room of another hospital for psychotic symptoms at the this moment currently denies. 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 Plan 1. Gather collateral information. We will try to contact his family and start working on proper diagnosis and treatment plan. 2. Continue with medications as prescribed. 3. We will continue with medical workout. 4. MRI without contrast done that showed no destruction of pulmonary by this. 5. 15 minute checks since the patient is able to contract for safety.. 6. Start Namenda 5 mg p.o. b.i.d. to target cognitive impairment due to dementia. 7. Even though that his dementia is advanced, we will start Aricept 5 mg p.o. q.h.s. in combination with Namenda since it can help on diminishing the progression of his cognitive impairment. On March 05 we increased Aricept to 10 mg p.o. q.h.s. the plan is to increase over the weekend to Namenda 10 mg p.o. b.i.d. Reason for continued inpatient stay Substantial Risk for: inability to function, rapid decompensation and med/psych decompensation Time Spent With Patient Time: Total time managing care of this patient today __20__ minutes.
[2023-08-04 20:00] VITALS: BP 149/70; PULSE 80; TEMP 37; O2SAT 98
[2023-08-04] MEDS: traZODone HCL 50 MG TABLET PO (20:26)
[2023-08-04] MEDS: Memantine HCl 5 MG TABLET PO (20:26)
[2023-08-04] MEDS: QUEtiapine Fumarate 25 MG TABLET PO (20:26)
[2023-08-04] MEDS: Donepezil HCl 10 MG TABLET PO (20:27)
[2023-08-05] MEDS: Acetaminophen 325 MG TABLET 650 MG PO (01:35)
[2023-08-05] MEDS: SUMAtriptan succinate 50 MG TABLET PO (01:36)
[2023-08-05] MEDS: traZODone HCL 50 MG TABLET PO ×2 (01:37→21:35)
[2023-08-05 08:00] VITALS: BP 153/67; PULSE 88; RESP 18; TEMP 36.5; O2SAT 97
[2023-08-05] MEDS: Thiamine HCL 100 MG TABLET PO (08:38)
[2023-08-05] MEDS: Brimonidine Tartrate 0.2% Oph 5 ML BOTTLE 1 DROP EYE-BOTH ×3 (08:38→21:35)
--- NOTE | 2023-08-05 12:08 | P.PNPSI_ITS ---
Subjective Subjective Date of Service: 08/05/23 Reason For Visit: Adjustment disorder,w/mixed disturbance of emotion Subjective Notes: Conditional Voluntary Interim History: The nursing staff reported the patient had been perseverative regarding his belongings. He has been anxious confused. He slept 8 hours complained of pain and took Tylenol. On interview the patient is very confused he was asking when he can go back home. He has not aware of his cognitive decline. Mental Status Exam Mental Status Exam Patient Appearance: Appropriate Patient Orientation: Person and Situation Level of Consciousness: Awake and Appropriate Patient Behavior: Guarded and Passive Mood Description: Withdrawn and Constricted Affect Description: Calm Patient Cognition Impaired: Yes Ability to Follow Directions: Good Speech Pattern: Clear Hallucinations: None Delusions: Not Present Thought Process: Distracted and Slowed Thinking Thought Content: positive for [place] and positive for Poverty of Content Judgement: Fair Diagnostics Vital Signs (24Hr): Vital Signs - 24 hr 08/04/23 20:00 08/05/23 08:00 Temperature 98.6 F 97.7 F Pulse Rate 80 88 Respiratory Rate 18 Blood Pressure 149/70 H 153/67 H Pulse Oximetry 98 97 Oxygen Delivery Method Room Air Room Air BMI result Body Mass Index 20.0 Labs 07/29/23 08:35 Imaging Radiology Impressions: ITS Impressions Shoulder X-Ray 07/30/23 09:55 IMPRESSION: 1. No metallic foreign body. 2. Calcification adjacent to the humeral head likely on the basis of calcific tendinosis. Orbit X-Ray 07/30/23 11:07 IMPRESSION: 1. No unexpected radiopaque foreign bodies. 2. Clear lungs. 3. Nonobstructive bowel gas pattern. 4. Moderate to large degree of colonic stool burden. Brain MRI 07/30/23 20:40 IMPRESSION: No acute intracranial abnormality. No findings to suggest Wernicke encephalopathy. Medications Medications Current Medications Acetaminophen (Acetaminophen 325 Mg Tablet) 650 mg PO Q6H PRN PRN Reason: Headache/Pain Mild Scale (1-3) Last Admin: 08/05/23 01:35 Dose: 650 mg Al Hydroxide/Mg Hydroxide (Magnesium Hydrox/Alum Hydrox 30 Ml Oral.Susp) 30 ml PO Q6H PRN PRN Reason: Heartburn/Nausea Brimonidine Tartrate (Brimonidine Tartrate 0.2% Oph 5 Ml Bottle) 1 drop E[facility]- B[facility] TID [facility] Last Admin: 08/05/23 08:38 Dose: 1 drop Donepezil HCl (Donepezil Hcl 10 Mg Tablet) 10 mg PO BEDTIME NOBLE Last Admin: 08/04/23 20:27 Dose: 10 mg Guaifenesin (Guaifenesin 200 Mg/10 Ml 10 Ml Liquid) 10 ml PO Q6H PRN PRN Reason: Cough Lidocaine (Lidocaine 4 % Patch Adh..Patch) 2 patch TRANSDERMA DAILY PRN; Protocol PRN Reason: bilateral low back pain Last Admin: 08/03/23 08:45 Dose: 2 patch Magnesium Hydroxide (Milk Of Magnesia 30 Ml Oral.Susp) 30 ml PO DAILY PRN PRN Reason: Constipation Memantine (Memantine Hcl 5 Mg Tablet) 5 mg PO BEDTIME NOBLE Last Admin: 08/04/23 20:26 Dose: 5 mg Quetiapine Fumarate (Quetiapine Fumarate 25 Mg Tablet) 25 mg PO BID PRN PRN Reason: anxiety/agitation Last Admin: 08/04/23 20:26 Dose: 25 mg Sumatriptan Succinate (Sumatriptan Succinate 50 Mg Tablet) 50 mg PO DAILY MRX1 PRN PRN Reason: Migraine Headache Last Admin: 08/05/23 01:36 Dose: 50 mg Thiamine HCl (Thiamine Hcl 100 Mg Tablet) 100 mg PO DAILY NOBLE Last Admin: 08/05/23 08:38 Dose: 100 mg Trazodone HCl (Trazodone Hcl 50 Mg Tablet) 50 mg PO BEDTIME MRX1 PRN PRN Reason: Insomnia Last Admin: 08/05/23 01:37 Dose: 50 mg Allergies Allergies Allergy/AdvReac Type Severity Reaction Status Date / Time Sulfa (Sulfonamide Allergy Severe ANAPHYLAXIS Unverified 11/11/19 17:55 Antibiotics) [SULFA (SULFONAMIDE ANTIBIOTICS)] Assessment & Plan Assessment & Plan (1) Alcohol abuse with alcohol-induced mental disorder: Status: Acute Code(s): F10.188 - Alcohol abuse with other alcohol-induced disorder Plan The patient is a 78-year-old male with a past history of alcohol use disorder who was brought to the emergency room of another hospital for psychotic symptoms at the this moment currently denies. 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 Plan 1. Gather collateral information. We will try to contact his family and start working on proper diagnosis and treatment plan. 2. Continue with medications as prescribed. 3. We will continue with medical workout. 4. MRI without contrast done that showed no destruction of pulmonary by this. 5. 15 minute checks since the patient is able to contract for safety.. 6. Start Namenda 5 mg p.o. b.i.d. to target cognitive impairment due to dementia. 7. Even though that his dementia is advanced, we will start Aricept 5 mg p.o. q.h.s. in combination with Namenda since it can help on diminishing the progression of his cognitive impairment. On March 05 we increased Aricept to 10 mg p.o. q.h.s. the plan is to increase over the weekend to Namenda 10 mg p.o. b.i.d. Reason for continued inpatient stay Substantial Risk for: inability to function, rapid decompensation and med/psych decompensation Time Spent With Patient Time: Total time managing care of this patient today __20__ minutes.
[2023-08-05] MEDS: QUEtiapine Fumarate 25 MG TABLET PO (17:41)
[2023-08-05 20:00] VITALS: BP 154/66; PULSE 87; RESP 18; TEMP 36.3; O2SAT 98
[2023-08-05] MEDS: Donepezil HCl 10 MG TABLET PO (21:34)
[2023-08-05] MEDS: Memantine HCl 5 MG TABLET PO (21:35)
[2023-08-06] MEDS: traZODone HCL 50 MG TABLET PO (00:35)
[2023-08-06] MEDS: Lidocaine 4 % Patch ADH..PATCH 2 PATCH TRANSDERMA (00:36)
[2023-08-06] MEDS: Acetaminophen 325 MG TABLET 650 MG PO (00:36)
[2023-08-06 07:49] VITALS: BP 142/73; PULSE 84; RESP 18; TEMP 36.4; O2SAT 99
[2023-08-06] MEDS: Memantine HCl 5 MG TABLET PO ×2 (08:05→20:22)
[2023-08-06] MEDS: Thiamine HCL 100 MG TABLET PO (08:05)
[2023-08-06] MEDS: Brimonidine Tartrate 0.2% Oph 5 ML BOTTLE 1 DROP EYE-BOTH ×3 (08:26→20:22)
--- NOTE | 2023-08-06 14:46 | HO.PSYCHPN ---
Subjective Subjective Date of Service: 08/06/23 Reason For Visit: Adjustment disorder,w/mixed disturbance of emotion Subjective Notes: Conditional Voluntary Interim History: The nursing staff reported the patient had been compliant with treatment, he looks confused easily redirectable. On interview the patient wanted to go back home, he is willing to continue with aftercare. We are increasing Namenda to 10 mg p.o. b.i.d. tomorrow. Mental Status Exam Mental Status Exam Patient Appearance: Appropriate Patient Orientation: Person and Situation Level of Consciousness: Awake and Appropriate Patient Behavior: Guarded and Passive Mood Description: Withdrawn Affect Description: Constricted Patient Cognition Impaired: Yes Ability to Follow Directions: Good Speech Pattern: Clear Hallucinations: None Delusions: Not Present Thought Process: Distracted and Slowed Thinking Thought Content: positive for [place] and positive for Poverty of Content Judgement: Fair Diagnostics Vital Signs (24Hr): Vital Signs - 24 hr 08/05/23 20:00 08/06/23 07:49 Temperature 97.3 F 97.5 F Pulse Rate 87 84 Respiratory Rate 18 18 Blood Pressure 154/66 H 142/73 H Pulse Oximetry 98 99 Oxygen Delivery Method Room Air Room Air BMI result Body Mass Index 20.0 Labs 07/29/23 08:35 Imaging Radiology Impressions: ITS Impressions Shoulder X-Ray 07/30/23 09:55 IMPRESSION: 1. No metallic foreign body. 2. Calcification adjacent to the humeral head likely on the basis of calcific tendinosis. Orbit X-Ray 07/30/23 11:07 IMPRESSION: 1. No unexpected radiopaque foreign bodies. 2. Clear lungs. 3. Nonobstructive bowel gas pattern. 4. Moderate to large degree of colonic stool burden. Brain MRI 07/30/23 20:40 IMPRESSION: No acute intracranial abnormality. No findings to suggest Wernicke encephalopathy. Medications Medications Current Medications Acetaminophen (Acetaminophen 325 Mg Tablet) 650 mg PO Q6H PRN PRN Reason: Headache/Pain Mild Scale (1-3) Last Admin: 08/06/23 00:36 Dose: 650 mg Al Hydroxide/Mg Hydroxide (Magnesium Hydrox/Alum Hydrox 30 Ml Oral.Susp) 30 ml PO Q6H PRN PRN Reason: Heartburn/Nausea Brimonidine Tartrate (Brimonidine Tartrate 0.2% Oph 5 Ml Bottle) 1 drop EYE-BOTH TID [facility] Last Admin: 08/06/23 08:26 Dose: 1 drop Donepezil HCl (Donepezil Hcl 10 Mg Tablet) 10 mg PO BEDTIME NOBLE Last Admin: 08/05/23 21:34 Dose: 10 mg Guaifenesin (Guaifenesin 200 Mg/10 Ml 10 Ml Liquid) 10 ml PO Q6H PRN PRN Reason: Cough Lidocaine (Lidocaine 4 % Patch Adh..Patch) 2 patch TRANSDERMA DAILY PRN; Protocol PRN Reason: bilateral low back pain Last Admin: 08/06/23 00:36 Dose: 1 patch Magnesium Hydroxide (Milk Of Magnesia 30 Ml Oral.Susp) 30 ml PO DAILY PRN PRN Reason: Constipation Memantine (Memantine Hcl 5 Mg Tablet) 5 mg PO BID NOBLE Last Admin: 08/06/23 08:05 Dose: 5 mg Quetiapine Fumarate (Quetiapine Fumarate 25 Mg Tablet) 25 mg PO BID PRN PRN Reason: anxiety/agitation Last Admin: 08/05/23 17:41 Dose: 25 mg Sumatriptan Succinate (Sumatriptan Succinate 50 Mg Tablet) 50 mg PO DAILY MRX1 PRN PRN Reason: Migraine Headache Last Admin: 08/05/23 01:36 Dose: 50 mg Thiamine HCl (Thiamine Hcl 100 Mg Tablet) 100 mg PO DAILY NOBLE Last Admin: 08/06/23 08:05 Dose: 100 mg Trazodone HCl (Trazodone Hcl 50 Mg Tablet) 50 mg PO BEDTIME MRX1 PRN PRN Reason: Insomnia Last Admin: 08/06/23 00:35 Dose: 50 mg Allergies Allergies Allergy/AdvReac Type Severity Reaction Status Date / Time Sulfa (Sulfonamide Allergy Severe ANAPHYLAXIS Unverified 11/11/19 17:55 Antibiotics) [SULFA (SULFONAMIDE ANTIBIOTICS)] Assessment & Plan Assessment & Plan (1) Alcohol abuse with alcohol-induced mental disorder: Status: Acute Code(s): F10.188 - Alcohol abuse with other alcohol-induced disorder Plan The patient is a 78-year-old male with a past history of alcohol use disorder who was brought to the emergency room of another hospital for psychotic symptoms at the this moment currently denies. 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 Plan 1. Gather collateral information. We will try to contact his family and start working on proper diagnosis and treatment plan. 2. Continue with medications as prescribed. 3. We will continue with medical workout. 4. MRI without contrast done that showed no destruction of pulmonary by this. 5. 15 minute checks since the patient is able to contract for safety.. 6. Start Namenda 5 mg p.o. b.i.d. to target cognitive impairment due to dementia. 7. Even though that his dementia is advanced, we will start Aricept 5 mg p.o. q.h.s. in combination with Namenda since it can help on diminishing the progression of his cognitive impairment. On March 05 we increased Aricept to 10 mg p.o. q.h.s. the plan is to increase over the weekend to Namenda 10 mg p.o. b.i.d. Reason for continued inpatient stay Substantial Risk for: inability to function, rapid decompensation and med/psych decompensation Time Spent With Patient Time: Total time managing care of this patient today __20__ minutes.
[2023-08-06] MEDS: QUEtiapine Fumarate 25 MG TABLET PO (18:28)
[2023-08-06 19:58] VITALS: BP 113/64; PULSE 69; TEMP 36.3; O2SAT 98
[2023-08-06] MEDS: Donepezil HCl 10 MG TABLET PO (20:22)
[2023-08-07] MEDS: Acetaminophen 325 MG TABLET 650 MG PO (04:47)
[2023-08-07 07:00] VITALS: BMI 20.4
[2023-08-07 08:49] VITALS: BP 138/77; PULSE 72; RESP 18; TEMP 36.7; O2SAT 98
[2023-08-07] MEDS: Brimonidine Tartrate 0.2% Oph 5 ML BOTTLE 1 DROP EYE-BOTH ×3 (08:55→20:49)
[2023-08-07] MEDS: Thiamine HCL 100 MG TABLET PO (08:55)
[2023-08-07] MEDS: Memantine HCl 5 MG TABLET PO ×2 (08:55→20:49)
--- NOTE | 2023-08-07 11:51 | HO.PSYCHPN ---
Subjective Subjective Date of Service: 08/07/23 Reason For Visit: Adjustment disorder,w/mixed disturbance of emotion Subjective Notes: Conditional Voluntary Interim History: The nursing staff reported the patient had been compliant with medications he slept 8 hours. He had been perseverative regarding his discharge. The occupational therapist reported that he did well in groups. On interview the patient denies new symptoms, waiting for placement. Mental Status Exam Mental Status Exam Patient Appearance: Appropriate Patient Orientation: Person and Situation Level of Consciousness: Awake Patient Behavior: Guarded and Passive Mood Description: Withdrawn Affect Description: Constricted Patient Cognition Impaired: Yes Ability to Follow Directions: Good Speech Pattern: Clear Hallucinations: None Delusions: Not Present Thought Process: Distracted and Slowed Thinking Thought Content: positive for [place] and positive for Poverty of Content Judgement: Poor Diagnostics Vital Signs (24Hr): Vital Signs - 24 hr 08/06/23 19:58 08/07/23 08:49 Temperature 97.4 F 98.0 F Pulse Rate 69 72 Respiratory Rate 18 Blood Pressure 113/64 138/77 Pulse Oximetry 98 98 Oxygen Delivery Method Room Air Room Air BMI result Body Mass Index 20.4 Labs 07/29/23 08:35 Imaging Radiology Impressions: ITS Impressions Shoulder X-Ray 07/30/23 09:55 IMPRESSION: 1. No metallic foreign body. 2. Calcification adjacent to the humeral head likely on the basis of calcific tendinosis. Orbit X-Ray 07/30/23 11:07 IMPRESSION: 1. No unexpected radiopaque foreign bodies. 2. Clear lungs. 3. Nonobstructive bowel gas pattern. 4. Moderate to large degree of colonic stool burden. Brain MRI 07/30/23 20:40 IMPRESSION: No acute intracranial abnormality. No findings to suggest Wernicke encephalopathy. Medications Medications Current Medications Acetaminophen (Acetaminophen 325 Mg Tablet) 650 mg PO Q6H PRN PRN Reason: Headache/Pain Mild Scale (1-3) Last Admin: 08/07/23 04:47 Dose: 650 mg Al Hydroxide/Mg Hydroxide (Magnesium Hydrox/Alum Hydrox 30 Ml Oral.Susp) 30 ml PO Q6H PRN PRN Reason: Heartburn/Nausea Brimonidine Tartrate (Brimonidine Tartrate 0.2% Oph 5 Ml Bottle) 1 drop EYE-BOTH TID NOBLE Last Admin: 08/07/23 08:55 Dose: 1 drop Donepezil HCl (Donepezil Hcl 10 Mg Tablet) 10 mg PO BEDTIME NOBLE Last Admin: 08/06/23 20:22 Dose: 10 mg Guaifenesin (Guaifenesin 200 Mg/10 Ml 10 Ml Liquid) 10 ml PO Q6H PRN PRN Reason: Cough Lidocaine (Lidocaine 4 % Patch Adh..Patch) 2 patch TRANSDERMA DAILY PRN; Protocol PRN Reason: bilateral low back pain Last Admin: 08/06/23 00:36 Dose: 1 patch Magnesium Hydroxide (Milk Of Magnesia 30 Ml Oral.Susp) 30 ml PO DAILY PRN PRN Reason: Constipation Memantine (Memantine Hcl 5 Mg Tablet) 5 mg PO BID NOBLE Last Admin: 08/07/23 08:55 Dose: 5 mg Quetiapine Fumarate (Quetiapine Fumarate 25 Mg Tablet) 25 mg PO BID PRN PRN Reason: anxiety/agitation Last Admin: 08/06/23 18:28 Dose: 25 mg Sumatriptan Succinate (Sumatriptan Succinate 50 Mg Tablet) 50 mg PO DAILY MRX1 PRN PRN Reason: Migraine Headache Last Admin: 08/05/23 01:36 Dose: 50 mg Thiamine HCl (Thiamine Hcl 100 Mg Tablet) 100 mg PO DAILY NOBLE Last Admin: 08/07/23 08:55 Dose: 100 mg Trazodone HCl (Trazodone Hcl 50 Mg Tablet) 50 mg PO BEDTIME MRX1 PRN PRN Reason: Insomnia Last Admin: 08/06/23 00:35 Dose: 50 mg Allergies Allergies Allergy/AdvReac Type Severity Reaction Status Date / Time Sulfa (Sulfonamide Allergy Severe ANAPHYLAXIS Unverified 11/11/19 17:55 Antibiotics) [SULFA (SULFONAMIDE ANTIBIOTICS)] Assessment & Plan Assessment & Plan (1) Alcohol abuse with alcohol-induced mental disorder: Status: Acute Code(s): F10.188 - Alcohol abuse with other alcohol-induced disorder Plan The patient is a 78-year-old male with a past history of alcohol use disorder who was brought to the emergency room of another hospital for psychotic symptoms at the this moment currently denies. 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 Plan 1. Gather collateral information. We will try to contact his family and start working on proper diagnosis and treatment plan. 2. Continue with medications as prescribed. 3. We will continue with medical workout. 4. MRI without contrast done that showed no destruction of pulmonary by this. 5. 15 minute checks since the patient is able to contract for safety.. 6. Start Namenda 5 mg p.o. b.i.d. to target cognitive impairment due to dementia. 7. Even though that his dementia is advanced, we will start Aricept 5 mg p.o. q.h.s. in combination with Namenda since it can help on diminishing the progression of his cognitive impairment. On March 05 we increased Aricept to 10 mg p.o. q.h.s. the plan is to increase over the weekend to Namenda 10 mg p.o. b.i.d. Reason for continued inpatient stay Substantial Risk for: inability to function, rapid decompensation and med/psych decompensation Time Spent With Patient Time: Total time managing care of this patient today __20__ minutes.
[2023-08-07 20:00] VITALS: BP 137/60; PULSE 68; RESP 18; TEMP 36.4; O2SAT 98
[2023-08-07] MEDS: Donepezil HCl 10 MG TABLET PO (20:49)
[2023-08-08 08:00] VITALS: BP 140/73; PULSE 64; RESP 18; TEMP 36.7; O2SAT 98
[2023-08-08] MEDS: Memantine HCl 5 MG TABLET PO ×2 (08:25→22:36)
[2023-08-08] MEDS: Brimonidine Tartrate 0.2% Oph 5 ML BOTTLE 1 DROP EYE-BOTH ×3 (08:25→22:37)
[2023-08-08] MEDS: Thiamine HCL 100 MG TABLET PO (08:25)
--- NOTE | 2023-08-08 13:08 | P.PNPSI_ITS ---
Subjective Subjective Date of Service: 08/08/23 Reason For Visit: Adjustment disorder,w/mixed disturbance of emotion Subjective Notes: Conditional Voluntary Interim History: The nursing staff reported the patient had been cooperative, pleasantly confused slept 7 hours. The social security benefits interviewer reported that her son is trying to clear his financial status to get a proper housing. On interview the patient denies new symptoms. Mental Status Exam Mental Status Exam Patient Appearance: Appropriate Patient Orientation: Person and Situation Level of Consciousness: Awake Patient Behavior: Guarded and Passive Mood Description: Withdrawn Affect Description: Constricted Patient Cognition Impaired: Yes Ability to Follow Directions: Good Speech Pattern: Clear Hallucinations: None Delusions: Not Present Thought Process: Distracted and Slowed Thinking Thought Content: positive for [place] and positive for Poverty of Content Judgement: Fair Diagnostics Vital Signs (24Hr): Vital Signs - 24 hr 08/07/23 20:00 08/08/23 08:00 Temperature 97.6 F 98.1 F Pulse Rate 68 64 Respiratory Rate 18 18 Blood Pressure 137/60 140/73 H Pulse Oximetry 98 98 Oxygen Delivery Method Room Air Room Air BMI result Body Mass Index 20.4 Labs 07/29/23 08:35 Imaging Radiology Impressions: ITS Impressions Shoulder X-Ray 07/30/23 09:55 IMPRESSION: 1. No metallic foreign body. 2. Calcification adjacent to the humeral head likely on the basis of calcific tendinosis. Orbit X-Ray 07/30/23 11:07 IMPRESSION: 1. No unexpected radiopaque foreign bodies. 2. Clear lungs. 3. Nonobstructive bowel gas pattern. 4. Moderate to large degree of colonic stool burden. Brain MRI 07/30/23 20:40 IMPRESSION: No acute intracranial abnormality. No findings to suggest Wernicke encephalopathy. Medications Medications Current Medications Acetaminophen (Acetaminophen 325 Mg Tablet) 650 mg PO Q6H PRN PRN Reason: Headache/Pain Mild Scale (1-3) Last Admin: 08/07/23 04:47 Dose: 650 mg Al Hydroxide/Mg Hydroxide (Magnesium Hydrox/Alum Hydrox 30 Ml Oral.Susp) 30 ml PO Q6H PRN PRN Reason: Heartburn/Nausea Brimonidine Tartrate (Brimonidine Tartrate 0.2% Oph 5 Ml Bottle) 1 drop EYE- BOTH TID [facility] Last Admin: 08/08/23 08:25 Dose: 1 drop Donepezil HCl (Donepezil Hcl 10 Mg Tablet) 10 mg PO BEDTIME [facility] Last Admin: 08/07/23 20:49 Dose: 10 mg Guaifenesin (Guaifenesin 200 Mg/10 Ml 10 Ml Liquid) 10 ml PO Q6H PRN PRN Reason: Cough Lidocaine (Lidocaine 4 % Patch Adh..Patch) 2 patch TRANSDERMA DAILY PRN; Protocol PRN Reason: bilateral low back pain Last Admin: 08/06/23 00:36 Dose: 1 patch Magnesium Hydroxide (Milk Of Magnesia 30 Ml Oral.Susp) 30 ml PO DAILY PRN PRN Reason: Constipation Memantine (Memantine Hcl 5 Mg Tablet) 5 mg PO BID [facility] Last Admin: 08/08/23 08:25 Dose: 5 mg Quetiapine Fumarate (Quetiapine Fumarate 25 Mg Tablet) 25 mg PO BID PRN PRN Reason: anxiety/agitation Last Admin: 08/06/23 18:28 Dose: 25 mg Sumatriptan Succinate (Sumatriptan Succinate 50 Mg Tablet) 50 mg PO DAILY MRX1 PRN PRN Reason: Migraine Headache Last Admin: 08/05/23 01:36 Dose: 50 mg Thiamine HCl (Thiamine Hcl 100 Mg Tablet) 100 mg PO DAILY [facility] Last Admin: 08/08/23 08:25 Dose: 100 mg Trazodone HCl (Trazodone Hcl 50 Mg Tablet) 50 mg PO BEDTIME MRX1 PRN PRN Reason: Insomnia Last Admin: 08/06/23 00:35 Dose: 50 mg Allergies Allergies Allergy/AdvReac Type Severity Reaction Status Date / Time Sulfa (Sulfonamide Allergy Severe ANAPHYLAXIS Unverified 11/11/19 17:55 Antibiotics) [SULFA (SULFONAMIDE ANTIBIOTICS)] Assessment & Plan Assessment & Plan (1) Alcohol abuse with alcohol-induced mental disorder: Status: Acute Code(s): F10.188 - Alcohol abuse with other alcohol-induced disorder Plan The patient is a 78-year-old male with a past history of alcohol use disorder who was brought to the emergency room of another hospital for psychotic symptoms at the this moment currently denies. 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 Plan 1. Gather collateral information. We will try to contact his family and start working on proper diagnosis and treatment plan. 2. Continue with medications as prescribed. 3. We will continue with medical workout. 4. MRI without contrast done that showed no destruction of pulmonary by this. 5. 15 minute checks since the patient is able to contract for safety.. 6. Start Namenda 5 mg p.o. b.i.d. to target cognitive impairment due to dementia. 7. Even though that his dementia is advanced, we will start Aricept 5 mg p.o. q.h.s. in combination with Namenda since it can help on diminishing the progression of his cognitive impairment. On March 05 we increased Aricept to 10 mg p.o. q.h.s. the plan is to increase over the weekend to Namenda 10 mg p.o. b.i.d. Reason for continued inpatient stay Substantial Risk for: inability to function, rapid decompensation and med/psych decompensation Time Spent With Patient Time: Total time managing care of this patient today __20__ minutes.
[2023-08-08 19:30] VITALS: BP 134/65; PULSE 76; RESP 16; TEMP 36.4; O2SAT 98
[2023-08-08 20:00] VITALS: BP 130/64; PULSE 68; RESP 18; TEMP 36.6; O2SAT 99
[2023-08-08] MEDS: traZODone HCL 50 MG TABLET PO (22:36)
[2023-08-08] MEDS: Donepezil HCl 10 MG TABLET PO (22:36)
[2023-08-09] MEDS: SUMAtriptan succinate 50 MG TABLET PO ×2 (04:09→23:32)
[2023-08-09] MEDS: Acetaminophen 325 MG TABLET 650 MG PO ×2 (04:10→23:32)
[2023-08-09 08:00] VITALS: BP 137/69; PULSE 65; RESP 18; TEMP 36.3; O2SAT 99
[2023-08-09] MEDS: Thiamine HCL 100 MG TABLET PO (09:12)
[2023-08-09] MEDS: Brimonidine Tartrate 0.2% Oph 5 ML BOTTLE 1 DROP EYE-BOTH ×3 (09:12→20:55)
[2023-08-09] MEDS: Memantine HCl 5 MG TABLET PO ×2 (09:12→20:55)
--- NOTE | 2023-08-09 11:48 | P.PNPSI_ITS ---
Subjective Subjective Date of Service: 08/09/23 Reason For Visit: Adjustment disorder,w/mixed disturbance of emotion Subjective Notes: Conditional Voluntary Interim History: Patient was seen and discussed in rounds today. Records and plans were reviewed. He has been pleasant and cooperative. He has calm. no psych symptoms reported. Eating and sleeping adequately and has been medication compliant. He was asking about his discharge plans which I referred to the treatment team. No changes were made. No behavioral issues reported Review of Systems Review of Systems Yes all other systems are reviewed and are negative Mental Status Exam Mental Status Exam Patient Appearance: Appropriate Patient Orientation: Person and Situation Level of Consciousness: Awake Patient Behavior: Guarded and Passive Mood Description: Withdrawn Affect Description: Constricted Patient Cognition Impaired: Yes Ability to Follow Directions: Good Speech Pattern: Clear Hallucinations: None Delusions: Not Present Thought Process: Distracted and Slowed Thinking Thought Content: positive for [place] and positive for Poverty of Content Judgement: Fair Diagnostics Vital Signs (24Hr): Vital Signs - 24 hr 08/08/23 19:30 08/08/23 20:00 08/09/23 08:00 Temperature 97.6 F 97.8 F 97.3 F Pulse Rate 76 68 65 Respiratory Rate 16 18 18 Blood Pressure 134/65 130/64 137/69 Pulse Oximetry 98 99 99 Oxygen Delivery Method Room Air Room Air Room Air BMI result Body Mass Index 20.4 Labs 07/29/23 08:35 Imaging Radiology Impressions: ITS Impressions Shoulder X-Ray 07/30/23 09:55 IMPRESSION: 1. No metallic foreign body. 2. Calcification adjacent to the humeral head likely on the basis of calcific tendinosis. Orbit X-Ray 07/30/23 11:07 IMPRESSION: 1. No unexpected radiopaque foreign bodies. 2. Clear lungs. 3. Nonobstructive bowel gas pattern. 4. Moderate to large degree of colonic stool burden. Brain MRI 07/30/23 20:40 IMPRESSION: No acute intracranial abnormality. No findings to suggest Wernicke encephalopathy. Medications Medications Current Medications Acetaminophen (Acetaminophen 325 Mg Tablet) 650 mg PO Q6H PRN PRN Reason: Headache/Pain Mild Scale (1-3) Last Admin: 08/09/23 04:10 Dose: 650 mg Al Hydroxide/Mg Hydroxide (Magnesium Hydrox/Alum Hydrox 30 Ml Oral.Susp) 30 ml PO Q6H PRN PRN Reason: Heartburn/Nausea Brimonidine Tartrate (Brimonidine Tartrate 0.2% Oph 5 Ml Bottle) 1 drop EYE- BOTH TID [facility] Last Admin: 08/09/23 09:12 Dose: 1 drop Donepezil HCl (Donepezil Hcl 10 Mg Tablet) 10 mg PO BEDTIME [facility] Last Admin: 08/08/23 22:36 Dose: 10 mg Guaifenesin (Guaifenesin 200 Mg/10 Ml 10 Ml Liquid) 10 ml PO Q6H PRN PRN Reason: Cough Lidocaine (Lidocaine 4 % Patch Adh..Patch) 2 patch TRANSDERMA DAILY PRN; Protocol PRN Reason: bilateral low back pain Last Admin: 08/06/23 00:36 Dose: 1 patch Magnesium Hydroxide (Milk Of Magnesia 30 Ml Oral.Susp) 30 ml PO DAILY PRN PRN Reason: Constipation Memantine (Memantine Hcl 5 Mg Tablet) 5 mg PO BID [facility] Last Admin: 08/09/23 09:12 Dose: 5 mg Quetiapine Fumarate (Quetiapine Fumarate 25 Mg Tablet) 25 mg PO BID PRN PRN Reason: anxiety/agitation Last Admin: 08/06/23 18:28 Dose: 25 mg Sumatriptan Succinate (Sumatriptan Succinate 50 Mg Tablet) 50 mg PO DAILY MRX1 PRN PRN Reason: Migraine Headache Last Admin: 08/09/23 04:09 Dose: 50 mg Thiamine HCl (Thiamine Hcl 100 Mg Tablet) 100 mg PO DAILY [facility] Last Admin: 08/09/23 09:12 Dose: 100 mg Trazodone HCl (Trazodone Hcl 50 Mg Tablet) 50 mg PO BEDTIME MRX1 PRN PRN Reason: Insomnia Last Admin: 08/08/23 22:36 Dose: 50 mg Allergies Allergies Allergy/AdvReac Type Severity Reaction Status Date / Time Sulfa (Sulfonamide Allergy Severe ANAPHYLAXIS Unverified 11/11/19 17:55 Antibiotics) [SULFA (SULFONAMIDE ANTIBIOTICS)] Assessment & Plan Assessment & Plan (1) Alcohol abuse with alcohol-induced mental disorder: Status: Acute Code(s): F10.188 - Alcohol abuse with other alcohol-induced disorder Plan The patient is a 78-year-old male with a past history of alcohol use disorder who was brought to the emergency room of another hospital for psychotic symptoms at the this moment currently denies. 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 Plan 1. Gather collateral information. We will try to contact his family and start working on proper diagnosis and treatment plan. 2. Continue with medications as prescribed. 3. We will continue with medical workout. 4. MRI without contrast done that showed no destruction of pulmonary by this. 5. 15 minute checks since the patient is able to contract for safety.. 6. Start Namenda 5 mg p.o. b.i.d. to target cognitive impairment due to dementia. 7. Even though that his dementia is advanced, we will start Aricept 5 mg p.o. q.h.s. in combination with Namenda since it can help on diminishing the progression of his cognitive impairment. On March 05 we increased Aricept to 10 mg p.o. q.h.s. the plan is to increase over the weekend to Namenda 10 mg p.o. b.i.d. 08/08: Continue current regimen and plans Reason for continued inpatient stay Substantial Risk for: rapid decompensation Time Spent With Patient Time: Total time managing care of this patient today ____ minutes.
[2023-08-09 20:00] VITALS: BP 150/75; PULSE 73; TEMP 36.3; O2SAT 98
[2023-08-09] MEDS: traZODone HCL 50 MG TABLET PO (20:55)
[2023-08-09] MEDS: Donepezil HCl 10 MG TABLET PO (20:56)
[2023-08-10 08:00] VITALS: BP 133/61; PULSE 77; RESP 18; TEMP 36.3; O2SAT 98
[2023-08-10] MEDS: Thiamine HCL 100 MG TABLET PO (08:06)
[2023-08-10] MEDS: Memantine HCl 5 MG TABLET PO ×2 (08:06→20:34)
[2023-08-10] MEDS: Brimonidine Tartrate 0.2% Oph 5 ML BOTTLE 1 DROP EYE-BOTH ×3 (08:06→20:34)
--- NOTE | 2023-08-10 08:53 | HO.PSYCHPN ---
Subjective Subjective Date of Service: 08/10/23 Reason For Visit: Adjustment disorder,w/mixed disturbance of emotion Subjective Notes: Conditional Voluntary Interim History: Patient was seen and discussed in rounds today. Records and plans were reviewed. He has been stable and is doing well. He inquired about the discharge planning which I am not aware of and he will be talking to the treatment team tomorrow. No complaints. No pain. Eating and sleeping well and has been med compliant with no side effects. Review of Systems Review of Systems Yes all other systems are reviewed and are negative Mental Status Exam Mental Status Exam Patient Appearance: Appropriate Patient Orientation: Person and Situation Level of Consciousness: Awake Patient Behavior: Guarded and Passive Mood Description: Withdrawn Affect Description: Constricted Patient Cognition Impaired: Yes Ability to Follow Directions: Good Speech Pattern: Clear Hallucinations: None Delusions: Not Present Thought Process: Distracted and Slowed Thinking Thought Content: positive for [place] and positive for Poverty of Content Judgement: Fair Diagnostics Vital Signs (24Hr): Vital Signs - 24 hr 08/09/23 20:00 Temperature 97.3 F Pulse Rate 73 Blood Pressure 150/75 H Pulse Oximetry 98 Oxygen Delivery Method Room Air BMI result Body Mass Index 20.4 Labs 07/29/23 08:35 Imaging Radiology Impressions: ITS Impressions Shoulder X-Ray 07/30/23 09:55 IMPRESSION: 1. No metallic foreign body. 2. Calcification adjacent to the humeral head likely on the basis of calcific tendinosis. Orbit X-Ray 07/30/23 11:07 IMPRESSION: 1. No unexpected radiopaque foreign bodies. 2. Clear lungs. 3. Nonobstructive bowel gas pattern. 4. Moderate to large degree of colonic stool burden. Brain MRI 07/30/23 20:40 IMPRESSION: No acute intracranial abnormality. No findings to suggest Wernicke encephalopathy. Medications Medications Current Medications Acetaminophen (Acetaminophen 325 Mg Tablet) 650 mg PO Q6H PRN PRN Reason: Headache/Pain Mild Scale (1-3) Last Admin: 08/09/23 23:32 Dose: 650 mg Al Hydroxide/Mg Hydroxide (Magnesium Hydrox/Alum Hydrox 30 Ml Oral.Susp) 30 ml PO Q6H PRN PRN Reason: Heartburn/Nausea Brimonidine Tartrate (Brimonidine Tartrate 0.2% Oph 5 Ml Bottle) 1 drop EYE-BOTH TID [facility] Last Admin: 08/10/23 08:06 Dose: 1 drop Donepezil HCl (Donepezil Hcl 10 Mg Tablet) 10 mg PO BEDTIME [facility] Last Admin: 08/09/23 20:56 Dose: 10 mg Guaifenesin (Guaifenesin 200 Mg/10 Ml 10 Ml Liquid) 10 ml PO Q6H PRN PRN Reason: Cough Lidocaine (Lidocaine 4 % Patch Adh..Patch) 2 patch TRANSDERMA DAILY PRN; Protocol PRN Reason: bilateral low back pain Last Admin: 08/06/23 00:36 Dose: 1 patch Magnesium Hydroxide (Milk Of Magnesia 30 Ml Oral.Susp) 30 ml PO DAILY PRN PRN Reason: Constipation Memantine (Memantine Hcl 5 Mg Tablet) 5 mg PO BID [facility] Last Admin: 08/10/23 08:06 Dose: 5 mg Quetiapine Fumarate (Quetiapine Fumarate 25 Mg Tablet) 25 mg PO BID PRN PRN Reason: anxiety/agitation Last Admin: 08/06/23 18:28 Dose: 25 mg Sumatriptan Succinate (Sumatriptan Succinate 50 Mg Tablet) 50 mg PO DAILY MRX1 PRN PRN Reason: Migraine Headache Last Admin: 08/09/23 23:32 Dose: 50 mg Thiamine HCl (Thiamine Hcl 100 Mg Tablet) 100 mg PO DAILY [facility] Last Admin: 08/10/23 08:06 Dose: 100 mg Trazodone HCl (Trazodone Hcl 50 Mg Tablet) 50 mg PO BEDTIME MRX1 PRN PRN Reason: Insomnia Last Admin: 08/09/23 20:55 Dose: 50 mg Allergies Allergies Allergy/AdvReac Type Severity Reaction Status Date / Time Sulfa (Sulfonamide Allergy Severe ANAPHYLAXIS Unverified 11/11/19 17:55 Antibiotics) [SULFA (SULFONAMIDE ANTIBIOTICS)] Assessment & Plan Assessment & Plan (1) Alcohol abuse with alcohol-induced mental disorder: Status: Acute Code(s): F10.188 - Alcohol abuse with other alcohol-induced disorder Plan The patient is a 78-year-old male with a past history of alcohol use disorder who was brought to the emergency room of another hospital for psychotic symptoms at the this moment currently denies. 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 Plan 1. Gather collateral information. We will try to contact his family and start working on proper diagnosis and treatment plan. 2. Continue with medications as prescribed. 3. We will continue with medical workout. 4. MRI without contrast done that showed no destruction of pulmonary by this. 5. 15 minute checks since the patient is able to contract for safety.. 6. Start Namenda 5 mg p.o. b.i.d. to target cognitive impairment due to dementia. 7. Even though that his dementia is advanced, we will start Aricept 5 mg p.o. q.h.s. in combination with Namenda since it can help on diminishing the progression of his cognitive impairment. On March 05 we increased Aricept to 10 mg p.o. q.h.s. the plan is to increase over the weekend to Namenda 10 mg p.o. b.i.d. 08/08: Continue current regimen and plans 08/09: Continue current plans and regimen. Reason for continued inpatient stay Substantial Risk for: rapid decompensation Time Spent With Patient Time: Total time managing care of this patient today ____ minutes.
[2023-08-10] MEDS: SUMAtriptan succinate 50 MG TABLET PO (12:15)
[2023-08-10 20:00] VITALS: BP 140/63; PULSE 77; RESP 16; TEMP 36.6; O2SAT 97
[2023-08-10] MEDS: traZODone HCL 50 MG TABLET PO (20:34)
[2023-08-10] MEDS: Donepezil HCl 10 MG TABLET PO (20:34)
[2023-08-11] MEDS: SUMAtriptan succinate 50 MG TABLET PO (05:35)
[2023-08-11 08:24] VITALS: BP 130/60; PULSE 83; RESP 17; TEMP 36.2; O2SAT 98
[2023-08-11] MEDS: Thiamine HCL 100 MG TABLET PO (08:26)
[2023-08-11] MEDS: Memantine HCl 5 MG TABLET PO ×2 (08:27→21:16)
[2023-08-11] MEDS: Brimonidine Tartrate 0.2% Oph 5 ML BOTTLE 1 DROP EYE-BOTH ×3 (08:28→21:15)
--- NOTE | 2023-08-11 11:59 | P.PNPSI_ITS ---
Subjective Subjective Date of Service: 08/11/23 Reason For Visit: Adjustment disorder,w/mixed disturbance of emotion Subjective Notes: Conditional Voluntary Interim History: Nursing staff reported the patient remains confused but easily redirectable. He slept 4 hours and needed p.r.n. trazodone last night. He complained of migraines and received Imitrex. On interview the patient remains pleasantly confused, he is asking about going back home he has not aware that he can not go back due to his cognitive impairment. Mental Status Exam Mental Status Exam Patient Appearance: Well Grooomed and Appropriate Patient Orientation: Person and Situation Level of Consciousness: Awake and Appropriate Patient Behavior: Appropriate and Guarded Mood Description: Withdrawn Affect Description: Constricted Patient Cognition Impaired: Yes Ability to Follow Directions: Good Speech Pattern: Clear Hallucinations: None Delusions: Not Present Thought Process: Distracted and Slowed Thinking Thought Content: positive for [place] and positive for Poverty of Content Judgement: Fair Diagnostics Vital Signs (24Hr): Vital Signs - 24 hr 08/10/23 20:00 08/11/23 08:24 Temperature 98 F 97.1 F Pulse Rate 77 83 Respiratory Rate 16 17 Blood Pressure 140/63 H 130/60 Pulse Oximetry 97 98 Oxygen Delivery Method Room Air Room Air BMI result Body Mass Index 20.4 Labs 07/29/23 08:35 Imaging Radiology Impressions: ITS Impressions Shoulder X-Ray 07/30/23 09:55 IMPRESSION: 1. No metallic foreign body. 2. Calcification adjacent to the humeral head likely on the basis of calcific tendinosis. Orbit X-Ray 07/30/23 11:07 IMPRESSION: 1. No unexpected radiopaque foreign bodies. 2. Clear lungs. 3. Nonobstructive bowel gas pattern. 4. Moderate to large degree of colonic stool burden. Brain MRI 07/30/23 20:40 IMPRESSION: No acute intracranial abnormality. No findings to suggest Wernicke encephalopathy. Medications Medications Current Medications Acetaminophen (Acetaminophen 325 Mg Tablet) 650 mg PO Q6H PRN PRN Reason: Headache/Pain Mild Scale (1-3) Last Admin: 08/09/23 23:32 Dose: 650 mg Al Hydroxide/Mg Hydroxide (Magnesium Hydrox/Alum Hydrox 30 Ml Oral.Susp) 30 ml PO Q6H PRN PRN Reason: Heartburn/Nausea Brimonidine Tartrate (Brimonidine Tartrate 0.2% Oph 5 Ml Bottle) 1 drop EYE- BOTH TID [facility] Last Admin: 08/11/23 08:28 Dose: 1 drop Donepezil HCl (Donepezil Hcl 10 Mg Tablet) 10 mg PO BEDTIME [facility] Last Admin: 08/10/23 20:34 Dose: 10 mg Guaifenesin (Guaifenesin 200 Mg/10 Ml 10 Ml Liquid) 10 ml PO Q6H PRN PRN Reason: Cough Lidocaine (Lidocaine 4 % Patch Adh..Patch) 2 patch TRANSDERMA DAILY PRN; Protocol PRN Reason: bilateral low back pain Last Admin: 08/06/23 00:36 Dose: 1 patch Magnesium Hydroxide (Milk Of Magnesia 30 Ml Oral.Susp) 30 ml PO DAILY PRN PRN Reason: Constipation Memantine (Memantine Hcl 5 Mg Tablet) 5 mg PO BID [facility] Last Admin: 08/11/23 08:27 Dose: 5 mg Quetiapine Fumarate (Quetiapine Fumarate 25 Mg Tablet) 25 mg PO BID PRN PRN Reason: anxiety/agitation Last Admin: 08/06/23 18:28 Dose: 25 mg Sumatriptan Succinate (Sumatriptan Succinate 50 Mg Tablet) 50 mg PO DAILY MRX1 PRN PRN Reason: Migraine Headache Last Admin: 08/11/23 05:35 Dose: 50 mg Thiamine HCl (Thiamine Hcl 100 Mg Tablet) 100 mg PO DAILY [facility] Last Admin: 08/11/23 08:26 Dose: 100 mg Trazodone HCl (Trazodone Hcl 50 Mg Tablet) 50 mg PO BEDTIME MRX1 PRN PRN Reason: Insomnia Last Admin: 08/10/23 20:34 Dose: 50 mg Allergies Allergies Allergy/AdvReac Type Severity Reaction Status Date / Time Sulfa (Sulfonamide Allergy Severe ANAPHYLAXIS Unverified 11/11/19 17:55 Antibiotics) [SULFA (SULFONAMIDE ANTIBIOTICS)] Assessment & Plan Assessment & Plan (1) Alcohol abuse with alcohol-induced mental disorder: Status: Acute Code(s): F10.188 - Alcohol abuse with other alcohol-induced disorder Plan The patient is a 78-year-old male with a past history of alcohol use disorder who was brought to the emergency room of another hospital for psychotic symptoms at the this moment currently denies. 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 Plan 1. Gather collateral information. We will try to contact his family and start working on proper diagnosis and treatment plan. 2. Continue with medications as prescribed. 3. We will continue with medical workout. 4. MRI without contrast done that showed no destruction of pulmonary by this. 5. 15 minute checks since the patient is able to contract for safety.. 6. Start Namenda 5 mg p.o. b.i.d. to target cognitive impairment due to dementia. 7. Even though that his dementia is advanced, we will start Aricept 5 mg p.o. q.h.s. in combination with Namenda since it can help on diminishing the progression of his cognitive impairment. On March 05 we increased Aricept to 10 mg p.o. q.h.s. the plan is to increase over the weekend to Namenda 10 mg p.o. b.i.d. 8. Waiting for placement. Reason for continued inpatient stay Substantial Risk for: inability to function, rapid decompensation and med/psych decompensation Time Spent With Patient Time: Total time managing care of this patient today __20__ minutes.
[2023-08-11] MEDS: QUEtiapine Fumarate 25 MG TABLET PO (18:06)
[2023-08-11 20:00] VITALS: BP 143/65; PULSE 94; RESP 16; TEMP 36.6; O2SAT 94
[2023-08-11] MEDS: Donepezil HCl 10 MG TABLET PO (21:16)
[2023-08-11] MEDS: traZODone HCL 50 MG TABLET PO (21:16)
[2023-08-12] MEDS: SUMAtriptan succinate 50 MG TABLET PO (01:18)
[2023-08-12 08:30] VITALS: BP 109/56; PULSE 72; RESP 16; TEMP 36.1; O2SAT 97
[2023-08-12] MEDS: Thiamine HCL 100 MG TABLET PO (09:40)
[2023-08-12] MEDS: Brimonidine Tartrate 0.2% Oph 5 ML BOTTLE 1 DROP EYE-BOTH ×3 (09:40→19:51)
[2023-08-12] MEDS: Memantine HCl 5 MG TABLET PO ×2 (09:40→19:51)
--- NOTE | 2023-08-12 12:22 | P.PNPSI_ITS ---
Subjective Subjective Date of Service: 08/12/23 Reason For Visit: Adjustment disorder,w/mixed disturbance of emotion Subjective Notes: Conditional Voluntary Interim History: The nursing staff reported the patient had been pleasant, cooperative confused at times. The staff has noticed that he is more confused in the evening. The occupational therapist that he attends to groups and he is pleasantly confused easily redirectable. On interview the patient was requesting to going back to his apartment, unable to remember that he can not go back home. Waiting for placement. Mental Status Exam Mental Status Exam Patient Appearance: Appropriate Patient Orientation: Person and Situation Level of Consciousness: Awake Patient Behavior: Guarded and Passive Mood Description: Withdrawn Affect Description: Constricted Patient Cognition Impaired: Yes Ability to Follow Directions: Good Speech Pattern: Clear Hallucinations: None Delusions: Not Present Thought Process: Distracted and Slowed Thinking Thought Content: positive for [place] and positive for Poverty of Content Judgement: Poor Diagnostics Vital Signs (24Hr): Vital Signs - 24 hr 08/11/23 20:00 08/12/23 08:30 Temperature 97.8 F 96.9 F Pulse Rate 94 72 Respiratory Rate 16 16 Blood Pressure 143/65 H 109/56 L Pulse Oximetry 94 97 Oxygen Delivery Method Room Air Room Air BMI result Body Mass Index 20.4 Labs 07/29/23 08:35 Imaging Radiology Impressions: ITS Impressions Shoulder X-Ray 07/30/23 09:55 IMPRESSION: 1. No metallic foreign body. 2. Calcification adjacent to the humeral head likely on the basis of calcific tendinosis. Orbit X-Ray 07/30/23 11:07 IMPRESSION: 1. No unexpected radiopaque foreign bodies. 2. Clear lungs. 3. Nonobstructive bowel gas pattern. 4. Moderate to large degree of colonic stool burden. Brain MRI 07/30/23 20:40 IMPRESSION: No acute intracranial abnormality. No findings to suggest Wernicke encephalopathy. Medications Medications Current Medications Acetaminophen (Acetaminophen 325 Mg Tablet) 650 mg PO Q6H PRN PRN Reason: Headache/Pain Mild Scale (1-3) Last Admin: 08/09/23 23:32 Dose: 650 mg Al Hydroxide/Mg Hydroxide (Magnesium Hydrox/Alum Hydrox 30 Ml Oral.Susp) 30 ml PO Q6H PRN PRN Reason: Heartburn/Nausea Brimonidine Tartrate (Brimonidine Tartrate 0.2% Oph 5 Ml Bottle) 1 drop EYE- BOTH TID [facility] Last Admin: 08/12/23 09:40 Dose: 1 drop Donepezil HCl (Donepezil Hcl 10 Mg Tablet) 10 mg PO BEDTIME [facility] Last Admin: 08/11/23 21:16 Dose: 10 mg Guaifenesin (Guaifenesin 200 Mg/10 Ml 10 Ml Liquid) 10 ml PO Q6H PRN PRN Reason: Cough Lidocaine (Lidocaine 4 % Patch Adh..Patch) 2 patch TRANSDERMA DAILY PRN; Protocol PRN Reason: bilateral low back pain Last Admin: 08/06/23 00:36 Dose: 1 patch Magnesium Hydroxide (Milk Of Magnesia 30 Ml Oral.Susp) 30 ml PO DAILY PRN PRN Reason: Constipation Memantine (Memantine Hcl 5 Mg Tablet) 5 mg PO BID [facility] Last Admin: 08/12/23 09:40 Dose: 5 mg Quetiapine Fumarate (Quetiapine Fumarate 25 Mg Tablet) 25 mg PO BID PRN PRN Reason: anxiety/agitation Last Admin: 08/11/23 18:06 Dose: 25 mg Quetiapine Fumarate (Quetiapine Fumarate 25 Mg Tablet) 25 mg PO DAILY@1700 [facility] Sumatriptan Succinate (Sumatriptan Succinate 50 Mg Tablet) 50 mg PO DAILY MRX1 PRN PRN Reason: Migraine Headache Last Admin: 08/12/23 01:18 Dose: 50 mg Thiamine HCl (Thiamine Hcl 100 Mg Tablet) 100 mg PO DAILY [facility] Last Admin: 08/12/23 09:40 Dose: 100 mg Trazodone HCl (Trazodone Hcl 50 Mg Tablet) 50 mg PO BEDTIME MRX1 PRN PRN Reason: Insomnia Last Admin: 08/11/23 21:16 Dose: 50 mg Allergies Allergies Allergy/AdvReac Type Severity Reaction Status Date / Time Sulfa (Sulfonamide Allergy Severe ANAPHYLAXIS Unverified 11/11/19 17:55 Antibiotics) [SULFA (SULFONAMIDE ANTIBIOTICS)] Assessment & Plan Assessment & Plan (1) Alcohol abuse with alcohol-induced mental disorder: Status: Acute Code(s): F10.188 - Alcohol abuse with other alcohol-induced disorder Plan The patient is a 78-year-old male with a past history of alcohol use disorder who was brought to the emergency room of another hospital for psychotic symptoms at the this moment currently denies. 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 Plan 1. Gather collateral information. We will try to contact his family and start working on proper diagnosis and treatment plan. 2. Continue with medications as prescribed. 3. We will continue with medical workout. 4. MRI without contrast done that showed no destruction of pulmonary by this. 5. 15 minute checks since the patient is able to contract for safety.. 6. Start Namenda 5 mg p.o. b.i.d. to target cognitive impairment due to dementia. 7. Even though that his dementia is advanced, we will start Aricept 5 mg p.o. q.h.s. in combination with Namenda since it can help on diminishing the progression of his cognitive impairment. On March 05 we increased Aricept to 10 mg p.o. q.h.s. the plan is to increase over the weekend to Namenda 10 mg p.o. b.i.d. 8. Waiting for placement. 9. Seroquel 25 mg p.o. at 17:00 to avoid . Reason for continued inpatient stay Substantial Risk for: inability to function, rapid decompensation and med/psych decompensation Time Spent With Patient Time: Total time managing care of this patient today __20__ minutes.
[2023-08-12 12:46] VITALS: BP 124/58; PULSE 70
[2023-08-12] MEDS: QUEtiapine Fumarate 25 MG TABLET PO (16:36)
[2023-08-12] MEDS: traZODone HCL 50 MG TABLET PO (19:51)
[2023-08-12] MEDS: Donepezil HCl 10 MG TABLET PO (19:51)
[2023-08-12 20:00] VITALS: BP 134/73; PULSE 68; RESP 18; TEMP 36.2; O2SAT 97
[2023-08-13 08:00] VITALS: BP 148/67; PULSE 75; RESP 18; TEMP 36.7; O2SAT 96
[2023-08-13] MEDS: Thiamine HCL 100 MG TABLET PO (08:22)
[2023-08-13] MEDS: Memantine HCl 5 MG TABLET PO ×2 (08:22→22:11)
[2023-08-13] MEDS: Brimonidine Tartrate 0.2% Oph 5 ML BOTTLE 1 DROP EYE-BOTH ×3 (08:22→22:13)
--- NOTE | 2023-08-13 10:57 | HO.PSYCHPN ---
Subjective Subjective Date of Service: 08/13/23 Reason For Visit: Adjustment disorder,w/mixed disturbance of emotion Subjective Notes: Conditional Voluntary Interim History: The nursing staff reported the patient had been confused pleasant, he received Seroquel in the evening yesterday and he was much better. On interview the patient looks pleasantly confused, he is asking for his discharge. The hospice social worker reported that his son is working on financial clearance. Mental Status Exam Mental Status Exam Patient Appearance: Appropriate Patient Orientation: Person and Situation Level of Consciousness: Awake and Appropriate Patient Behavior: Guarded and Passive Mood Description: Withdrawn Affect Description: Constricted Patient Cognition Impaired: Yes Ability to Follow Directions: Good Speech Pattern: Clear Hallucinations: None Delusions: Not Present Thought Process: Distracted and Slowed Thinking Thought Content: positive for [place] and positive for Poverty of Content Judgement: Poor Diagnostics Vital Signs (24Hr): Vital Signs - 24 hr 08/12/23 12:46 08/12/23 20:00 08/13/23 08:00 Temperature 97.1 F 98.1 F Pulse Rate 70 68 75 Respiratory Rate 18 18 Blood Pressure 124/58 L 134/73 148/67 H Pulse Oximetry 97 96 Oxygen Delivery Method Room Air Room Air BMI result Body Mass Index 20.4 Labs 07/29/23 08:35 Imaging Radiology Impressions: ITS Impressions Shoulder X-Ray 07/30/23 09:55 IMPRESSION: 1. No metallic foreign body. 2. Calcification adjacent to the humeral head likely on the basis of calcific tendinosis. Orbit X-Ray 07/30/23 11:07 IMPRESSION: 1. No unexpected radiopaque foreign bodies. 2. Clear lungs. 3. Nonobstructive bowel gas pattern. 4. Moderate to large degree of colonic stool burden. Brain MRI 07/30/23 20:40 IMPRESSION: No acute intracranial abnormality. No findings to suggest Wernicke encephalopathy. Medications Medications Current Medications Acetaminophen (Acetaminophen 325 Mg Tablet) 650 mg PO Q6H PRN PRN Reason: Headache/Pain Mild Scale (1-3) Last Admin: 08/09/23 23:32 Dose: 650 mg Al Hydroxide/Mg Hydroxide (Magnesium Hydrox/Alum Hydrox 30 Ml Oral.Susp) 30 ml PO Q6H PRN PRN Reason: Heartburn/Nausea Brimonidine Tartrate (Brimonidine Tartrate 0.2% Oph 5 Ml Bottle) 1 drop EYE-BOTH TID [place] Last Admin: 08/13/23 08:22 Dose: 1 drop Donepezil HCl (Donepezil Hcl 10 Mg Tablet) 10 mg PO BEDTIME [facility] Last Admin: 08/12/23 19:51 Dose: 10 mg Guaifenesin (Guaifenesin 200 Mg/10 Ml 10 Ml Liquid) 10 ml PO Q6H PRN PRN Reason: Cough Lidocaine (Lidocaine 4 % Patch Adh..Patch) 2 patch TRANSDERMA DAILY PRN; Protocol PRN Reason: bilateral low back pain Last Admin: 08/06/23 00:36 Dose: 1 patch Magnesium Hydroxide (Milk Of Magnesia 30 Ml Oral.Susp) 30 ml PO DAILY PRN PRN Reason: Constipation Memantine (Memantine Hcl 5 Mg Tablet) 5 mg PO BID [facility] Last Admin: 08/13/23 08:22 Dose: 5 mg Quetiapine Fumarate (Quetiapine Fumarate 25 Mg Tablet) 25 mg PO BID PRN PRN Reason: anxiety/agitation Last Admin: 08/11/23 18:06 Dose: 25 mg Quetiapine Fumarate (Quetiapine Fumarate 25 Mg Tablet) 25 mg PO DAILY@1700 [facility] Last Admin: 08/12/23 16:36 Dose: 25 mg Sumatriptan Succinate (Sumatriptan Succinate 50 Mg Tablet) 50 mg PO DAILY MRX1 PRN PRN Reason: Migraine Headache Last Admin: 08/12/23 01:18 Dose: 50 mg Thiamine HCl (Thiamine Hcl 100 Mg Tablet) 100 mg PO DAILY [facility] Last Admin: 08/13/23 08:22 Dose: 100 mg Trazodone HCl (Trazodone Hcl 50 Mg Tablet) 50 mg PO BEDTIME MRX1 PRN PRN Reason: Insomnia Last Admin: 08/12/23 19:51 Dose: 50 mg Allergies Allergies Allergy/AdvReac Type Severity Reaction Status Date / Time Sulfa (Sulfonamide Allergy Severe ANAPHYLAXIS Unverified 11/11/19 17:55 Antibiotics) [SULFA (SULFONAMIDE ANTIBIOTICS)] Assessment & Plan Assessment & Plan (1) Alcohol abuse with alcohol-induced mental disorder: Status: Acute Code(s): F10.188 - Alcohol abuse with other alcohol-induced disorder Plan The patient is a 78-year-old male with a past history of alcohol use disorder who was brought to the emergency room of another hospital for psychotic symptoms at the this moment currently denies. 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 Plan 1. Gather collateral information. We will try to contact his family and start working on proper diagnosis and treatment plan. 2. Continue with medications as prescribed. 3. We will continue with medical workout. 4. MRI without contrast done that showed no destruction of pulmonary by this. 5. 15 minute checks since the patient is able to contract for safety.. 6. Start Namenda 5 mg p.o. b.i.d. to target cognitive impairment due to dementia. 7. Even though that his dementia is advanced, we will start Aricept 5 mg p.o. q.h.s. in combination with Namenda since it can help on diminishing the progression of his cognitive impairment. On March 05 we increased Aricept to 10 mg p.o. q.h.s. the plan is to increase over the weekend to Namenda 10 mg p.o. b.i.d. 8. Waiting for placement. 9. Seroquel 25 mg p.o. at 17:00 to avoid . Reason for continued inpatient stay Substantial Risk for: inability to function, rapid decompensation and med/psych decompensation Time Spent With Patient Time: Total time managing care of this patient today __20__ minutes.
[2023-08-13] MEDS: QUEtiapine Fumarate 25 MG TABLET PO ×3 (17:35→22:12)
[2023-08-13 20:00] VITALS: BP 138/67; PULSE 82; RESP 18; TEMP 36.2; O2SAT 96
[2023-08-13] MEDS: traZODone HCL 50 MG TABLET PO (22:10)
[2023-08-13] MEDS: Donepezil HCl 10 MG TABLET PO (22:11)
[2023-08-14] MEDS: traZODone HCL 50 MG TABLET PO ×3 (00:02→22:36)
[2023-08-14] MEDS: Acetaminophen 325 MG TABLET 650 MG PO ×2 (00:02→09:39)
[2023-08-14] MEDS: SUMAtriptan succinate 50 MG TABLET PO (05:28)
[2023-08-14 08:00] VITALS: BP 129/70; PULSE 75; RESP 18; TEMP 36.6; O2SAT 98
[2023-08-14] MEDS: Memantine HCl 5 MG TABLET PO ×2 (08:28→20:43)
[2023-08-14] MEDS: Thiamine HCL 100 MG TABLET PO (08:28)
[2023-08-14] MEDS: Brimonidine Tartrate 0.2% Oph 5 ML BOTTLE 1 DROP EYE-BOTH ×3 (08:28→20:42)
--- NOTE | 2023-08-14 12:16 | P.PNPSI_ITS ---
Subjective Subjective Date of Service: 08/14/23 Reason For Visit: Adjustment disorder,w/mixed disturbance of emotion Subjective Notes: Conditional Voluntary Interim History: The nursing staff reported the patient had been compliant with treatment. The patient had been anxious reported stating that he doesn't remember where he parked his car, confused but easily redirectable. He needed Trazodone x 2. On interview, he denies new symptoms, pleasantly confused, no short term memory, confabulating at times. Mental Status Exam Mental Status Exam Patient Appearance: Appropriate Patient Orientation: Person and Situation Level of Consciousness: Awake and Appropriate Patient Behavior: Guarded and Passive Mood Description: Withdrawn Affect Description: Constricted Patient Cognition Impaired: Yes Ability to Follow Directions: Good Speech Pattern: Clear Hallucinations: None Delusions: Not Present Thought Process: Distracted and Slowed Thinking Thought Content: positive for [place] and positive for Poverty of Content Judgement: Poor Diagnostics Vital Signs (24Hr): Vital Signs - 24 hr 08/13/23 20:00 08/14/23 08:00 Temperature 97.1 F 97.8 F Pulse Rate 82 75 Respiratory Rate 18 18 Blood Pressure 138/67 129/70 Pulse Oximetry 96 98 Oxygen Delivery Method Room Air Room Air BMI result Body Mass Index 20.4 Labs 07/29/23 08:35 Imaging Radiology Impressions: ITS Impressions Shoulder X-Ray 07/30/23 09:55 IMPRESSION: 1. No metallic foreign body. 2. Calcification adjacent to the humeral head likely on the basis of calcific tendinosis. Orbit X-Ray 07/30/23 11:07 IMPRESSION: 1. No unexpected radiopaque foreign bodies. 2. Clear lungs. 3. Nonobstructive bowel gas pattern. 4. Moderate to large degree of colonic stool burden. Brain MRI 07/30/23 20:40 IMPRESSION: No acute intracranial abnormality. No findings to suggest Wernicke encephalopathy. Medications Medications Current Medications Acetaminophen (Acetaminophen 325 Mg Tablet) 650 mg PO Q6H PRN PRN Reason: Headache/Pain Mild Scale (1-3) Last Admin: 08/14/23 09:39 Dose: 650 mg Al Hydroxide/Mg Hydroxide (Magnesium Hydrox/Alum Hydrox 30 Ml Oral.Susp) 30 ml PO Q6H PRN PRN Reason: Heartburn/Nausea Brimonidine Tartrate (Brimonidine Tartrate 0.2% Oph 5 Ml Bottle) 1 drop EYE- BOTH TID [place] Last Admin: 08/14/23 08:28 Dose: 1 drop Donepezil HCl (Donepezil Hcl 10 Mg Tablet) 10 mg PO BEDTIME [facility] Last Admin: 08/13/23 22:11 Dose: 10 mg Guaifenesin (Guaifenesin 200 Mg/10 Ml 10 Ml Liquid) 10 ml PO Q6H PRN PRN Reason: Cough Lidocaine (Lidocaine 4 % Patch Adh..Patch) 2 patch TRANSDERMA DAILY PRN; Protocol PRN Reason: bilateral low back pain Last Admin: 08/06/23 00:36 Dose: 1 patch Magnesium Hydroxide (Milk Of Magnesia 30 Ml Oral.Susp) 30 ml PO DAILY PRN PRN Reason: Constipation Memantine (Memantine Hcl 5 Mg Tablet) 5 mg PO BID [facility] Last Admin: 08/14/23 08:28 Dose: 5 mg Quetiapine Fumarate (Quetiapine Fumarate 25 Mg Tablet) 25 mg PO BID PRN PRN Reason: anxiety/agitation Last Admin: 08/13/23 22:12 Dose: 25 mg Quetiapine Fumarate (Quetiapine Fumarate 25 Mg Tablet) 25 mg PO DAILY@1700 [facility] Last Admin: 08/13/23 22:11 Dose: 25 mg Sumatriptan Succinate (Sumatriptan Succinate 50 Mg Tablet) 50 mg PO DAILY MRX1 PRN PRN Reason: Migraine Headache Last Admin: 08/14/23 05:28 Dose: 50 mg Thiamine HCl (Thiamine Hcl 100 Mg Tablet) 100 mg PO DAILY [facility] Last Admin: 08/14/23 08:28 Dose: 100 mg Trazodone HCl (Trazodone Hcl 50 Mg Tablet) 50 mg PO BEDTIME MRX1 PRN PRN Reason: Insomnia Last Admin: 08/14/23 00:02 Dose: 50 mg Allergies Allergies Allergy/AdvReac Type Severity Reaction Status Date / Time Sulfa (Sulfonamide Allergy Severe ANAPHYLAXIS Unverified 11/11/19 17:55 Antibiotics) [SULFA (SULFONAMIDE ANTIBIOTICS)] Assessment & Plan Assessment & Plan (1) Alcohol abuse with alcohol-induced mental disorder: Status: Acute Code(s): F10.188 - Alcohol abuse with other alcohol-induced disorder Plan The patient is a 78-year-old male with a past history of alcohol use disorder who was brought to the emergency room of another hospital for psychotic symptoms at the this moment currently denies. 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 Plan 1. Gather collateral information. We will try to contact his family and start working on proper diagnosis and treatment plan. 2. Continue with medications as prescribed. 3. We will continue with medical workout. 4. MRI without contrast done that showed no destruction of pulmonary by this. 5. 15 minute checks since the patient is able to contract for safety.. 6. Start Namenda 5 mg p.o. b.i.d. to target cognitive impairment due to dementia. 7. Even though that his dementia is advanced, we will start Aricept 5 mg p.o. q.h.s. in combination with Namenda since it can help on diminishing the progression of his cognitive impairment. On March 05 we increased Aricept to 10 mg p.o. q.h.s. the plan is to increase over the weekend to Namenda 10 mg p.o. b.i.d. 8. Waiting for placement. 9. Seroquel 25 mg p.o. at 17:00 to avoid . Reason for continued inpatient stay Substantial Risk for: inability to function, rapid decompensation and med/psych decompensation Time Spent With Patient Time: Total time managing care of this patient today __20__ minutes.
[2023-08-14 12:51] VITALS: BMI 20.8
[2023-08-14 20:00] VITALS: BP 153/70; PULSE 68; RESP 16; TEMP 36.9; O2SAT 98
[2023-08-14] MEDS: QUEtiapine Fumarate 25 MG TABLET PO (20:42)
[2023-08-14] MEDS: Donepezil HCl 10 MG TABLET PO (20:43)
[2023-08-14] MEDS: Magnesium Hydrox/Alum Hydrox 30 ML ORAL.SUSP PO (22:36)
[2023-08-15 08:00] VITALS: BP 119/56; PULSE 86; RESP 18; TEMP 36.4; O2SAT 97
[2023-08-15] MEDS: Thiamine HCL 100 MG TABLET PO (09:04)
[2023-08-15] MEDS: Memantine HCl 5 MG TABLET PO ×2 (09:04→20:55)
[2023-08-15] MEDS: Brimonidine Tartrate 0.2% Oph 5 ML BOTTLE 1 DROP EYE-BOTH ×3 (09:04→20:56)
--- NOTE | 2023-08-15 12:11 | P.PNPSI_ITS ---
Subjective Subjective Date of Service: 08/15/23 Reason For Visit: Adjustment disorder,w/mixed disturbance of emotion Subjective Notes: Conditional Voluntary Interim History: Nursing staff reported the patient had been anxious and flat he complained of pain and received Tylenol yesterday. He had been hyperverbal, the staff reported the patient was looking for his phone and he slept 6 hours. On interview, the patient has been asking for his discharge. His family is working for long-term placement and financial clearance has not been achieved yet as per bilingual social worker report. Mental Status Exam Mental Status Exam Patient Appearance: Appropriate Patient Orientation: Person and Situation Level of Consciousness: Awake and Appropriate Patient Behavior: Guarded and Passive Mood Description: Withdrawn Affect Description: Constricted Patient Cognition Impaired: Yes Ability to Follow Directions: Good Speech Pattern: Clear Hallucinations: None Delusions: Not Present Thought Process: Distracted Thought Content: positive for [place] and positive for Poverty of Content Judgement: Poor Diagnostics Vital Signs (24Hr): Vital Signs - 24 hr 08/14/23 20:00 08/15/23 08:00 Temperature 98.4 F 97.5 F Pulse Rate 68 86 Respiratory Rate 16 18 Blood Pressure 153/70 H 119/56 L Pulse Oximetry 98 97 Oxygen Delivery Method Room Air Room Air BMI result Body Mass Index 20.8 Labs 07/29/23 08:35 Imaging Radiology Impressions: ITS Impressions Shoulder X-Ray 07/30/23 09:55 IMPRESSION: 1. No metallic foreign body. 2. Calcification adjacent to the humeral head likely on the basis of calcific tendinosis. Orbit X-Ray 07/30/23 11:07 IMPRESSION: 1. No unexpected radiopaque foreign bodies. 2. Clear lungs. 3. Nonobstructive bowel gas pattern. 4. Moderate to large degree of colonic stool burden. Brain MRI 07/30/23 20:40 IMPRESSION: No acute intracranial abnormality. No findings to suggest Wernicke encephalopathy. Medications Medications Current Medications Acetaminophen (Acetaminophen 325 Mg Tablet) 650 mg PO Q6H PRN PRN Reason: Headache/Pain Mild Scale (1-3) Last Admin: 08/14/23 09:39 Dose: 650 mg Al Hydroxide/Mg Hydroxide (Magnesium Hydrox/Alum Hydrox 30 Ml Oral.Susp) 30 ml PO Q6H PRN PRN Reason: Heartburn/Nausea Last Admin: 08/14/23 22:36 Dose: 30 ml Brimonidine Tartrate (Brimonidine Tartrate 0.2% Oph 5 Ml Bottle) 1 drop EYE- BOTH TID [facility] Last Admin: 08/15/23 09:04 Dose: 1 drop Donepezil HCl (Donepezil Hcl 10 Mg Tablet) 10 mg PO BEDTIME [facility] Last Admin: 08/14/23 20:43 Dose: 10 mg Guaifenesin (Guaifenesin 200 Mg/10 Ml 10 Ml Liquid) 10 ml PO Q6H PRN PRN Reason: Cough Lidocaine (Lidocaine 4 % Patch Adh..Patch) 2 patch TRANSDERMA DAILY PRN; Protocol PRN Reason: bilateral low back pain Last Admin: 08/06/23 00:36 Dose: 1 patch Magnesium Hydroxide (Milk Of Magnesia 30 Ml Oral.Susp) 30 ml PO DAILY PRN PRN Reason: Constipation Memantine (Memantine Hcl 5 Mg Tablet) 5 mg PO BID [facility] Last Admin: 08/15/23 09:04 Dose: 5 mg Quetiapine Fumarate (Quetiapine Fumarate 25 Mg Tablet) 25 mg PO BID PRN PRN Reason: anxiety/agitation Last Admin: 08/14/23 20:42 Dose: 25 mg Quetiapine Fumarate (Quetiapine Fumarate 25 Mg Tablet) 25 mg PO DAILY@1700 [facility] Last Admin: 08/13/23 22:11 Dose: 25 mg Sumatriptan Succinate (Sumatriptan Succinate 50 Mg Tablet) 50 mg PO DAILY MRX1 PRN PRN Reason: Migraine Headache Last Admin: 08/14/23 05:28 Dose: 50 mg Thiamine HCl (Thiamine Hcl 100 Mg Tablet) 100 mg PO DAILY [facility] Last Admin: 08/15/23 09:04 Dose: 100 mg Trazodone HCl (Trazodone Hcl 50 Mg Tablet) 50 mg PO BEDTIME MRX1 PRN PRN Reason: Insomnia Last Admin: 08/14/23 22:36 Dose: 50 mg Allergies Allergies Allergy/AdvReac Type Severity Reaction Status Date / Time Sulfa (Sulfonamide Allergy Severe ANAPHYLAXIS Unverified 11/11/19 17:55 Antibiotics) [SULFA (SULFONAMIDE ANTIBIOTICS)] Assessment & Plan Assessment & Plan (1) Alcohol abuse with alcohol-induced mental disorder: Status: Acute Code(s): F10.188 - Alcohol abuse with other alcohol-induced disorder Plan The patient is a 78-year-old male with a past history of alcohol use disorder who was brought to the emergency room of another hospital for psychotic symptoms at the this moment currently denies. 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 Plan 1. Gather collateral information. We will try to contact his family and start working on proper diagnosis and treatment plan. 2. Continue with medications as prescribed. 3. We will continue with medical workout. 4. MRI without contrast done that showed no destruction of pulmonary by this. 5. 15 minute checks since the patient is able to contract for safety.. 6. Start Namenda 5 mg p.o. b.i.d. to target cognitive impairment due to dementia. 7. Even though that his dementia is advanced, we will start Aricept 5 mg p.o. q.h.s. in combination with Namenda since it can help on diminishing the progression of his cognitive impairment. On March 05 we increased Aricept to 10 mg p.o. q.h.s. the plan is to increase over the weekend to Namenda 10 mg p.o. b.i.d. 8. Waiting for placement. 9. Seroquel 25 mg p.o. at 17:00 to avoid . Reason for continued inpatient stay Substantial Risk for: inability to function, rapid decompensation and med/psych decompensation Time Spent With Patient Time: Total time managing care of this patient today __20__ minutes.
[2023-08-15] MEDS: SUMAtriptan succinate 50 MG TABLET PO (14:57)
[2023-08-15] MEDS: Acetaminophen 325 MG TABLET 650 MG PO (14:58)
[2023-08-15] MEDS: QUEtiapine Fumarate 25 MG TABLET PO ×2 (16:17→23:47)
[2023-08-15 19:21] VITALS: BP 122/58; PULSE 75; TEMP 36.6; O2SAT 97
[2023-08-15] MEDS: Donepezil HCl 10 MG TABLET PO (20:56)
[2023-08-15] MEDS: traZODone HCL 50 MG TABLET PO ×2 (20:56→23:47)
[2023-08-16 08:15] VITALS: BP 123/58; PULSE 86; RESP 16; TEMP 36.6; O2SAT 95
[2023-08-16] MEDS: Thiamine HCL 100 MG TABLET PO (08:33)
[2023-08-16] MEDS: Memantine HCl 5 MG TABLET PO ×2 (08:33→20:27)
[2023-08-16] MEDS: Brimonidine Tartrate 0.2% Oph 5 ML BOTTLE 1 DROP EYE-BOTH ×3 (08:34→20:27)
--- NOTE | 2023-08-16 14:28 | P.PNPSI_ITS ---
Subjective Subjective Date of Service: 08/16/23 Reason For Visit: Adjustment disorder,w/mixed disturbance of emotion Subjective Notes: Conditional Voluntary Interim History: Would like to know when he is going home- denies si , hi, nursing report continuously coming to nursing to repeatedly ask same questions where is his phone, where is his wallet , nursing reports he can become irritable around this denies s/e of meds or trouble sleeping Medication Compliance: Yes Side effects from medications: No Attending Groups: Intermittent Review of Systems Acute medical concerns: No Medical Review of Systems: unchanged Mental Status Exam Mental Status Exam Patient Appearance: Unkempt Patient Orientation: Person and Place Level of Consciousness: Awake Patient Behavior: Restless and Anxious Mood Description: Anxious Affect Description: Apprehensive Patient Cognition Impaired: Yes Ability to Follow Directions: Fair Speech Pattern: Clear Thought Process: Goal Oriented Thought Content: positive for [place] Depressive Symptoms: Increased Anxiety and Difficulty Concentrating Judgement: Fair (-poor) Diagnostics Vital Signs (24Hr): Vital Signs - 24 hr 08/15/23 19:21 08/16/23 08:15 Temperature 98 F 97.8 F Pulse Rate 75 86 Respiratory Rate 16 Blood Pressure 122/58 L 123/58 L Pulse Oximetry 97 95 Oxygen Delivery Method Room Air Room Air BMI result Body Mass Index 20.8 Labs 07/29/23 08:35 Imaging Radiology Impressions: ITS Impressions Shoulder X-Ray 07/30/23 09:55 IMPRESSION: 1. No metallic foreign body. 2. Calcification adjacent to the humeral head likely on the basis of calcific tendinosis. Orbit X-Ray 07/30/23 11:07 IMPRESSION: 1. No unexpected radiopaque foreign bodies. 2. Clear lungs. 3. Nonobstructive bowel gas pattern. 4. Moderate to large degree of colonic stool burden. Brain MRI 07/30/23 20:40 IMPRESSION: No acute intracranial abnormality. No findings to suggest Wernicke encephalopathy. Medications Medications Current Medications Acetaminophen (Acetaminophen 325 Mg Tablet) 650 mg PO Q6H PRN PRN Reason: Headache/Pain Mild Scale (1-3) Last Admin: 08/15/23 14:58 Dose: 650 mg Al Hydroxide/Mg Hydroxide (Magnesium Hydrox/Alum Hydrox 30 Ml Oral.Susp) 30 ml PO Q6H PRN PRN Reason: Heartburn/Nausea Last Admin: 08/14/23 22:36 Dose: 30 ml Brimonidine Tartrate (Brimonidine Tartrate 0.2% Oph 5 Ml Bottle) 1 drop EYE- BOTH TID [facility] Last Admin: 08/16/23 14:17 Dose: 1 drop Donepezil HCl (Donepezil Hcl 10 Mg Tablet) 10 mg PO BEDTIME [facility] Last Admin: 08/15/23 20:56 Dose: 10 mg Guaifenesin (Guaifenesin 200 Mg/10 Ml 10 Ml Liquid) 10 ml PO Q6H PRN PRN Reason: Cough Lidocaine (Lidocaine 4 % Patch Adh..Patch) 2 patch TRANSDERMA DAILY PRN; Protocol PRN Reason: bilateral low back pain Last Admin: 08/06/23 00:36 Dose: 1 patch Magnesium Hydroxide (Milk Of Magnesia 30 Ml Oral.Susp) 30 ml PO DAILY PRN PRN Reason: Constipation Memantine (Memantine Hcl 5 Mg Tablet) 5 mg PO BID [facility] Last Admin: 08/16/23 08:33 Dose: 5 mg Quetiapine Fumarate (Quetiapine Fumarate 25 Mg Tablet) 25 mg PO BID PRN PRN Reason: anxiety/agitation Last Admin: 08/15/23 23:47 Dose: 25 mg Quetiapine Fumarate (Quetiapine Fumarate 25 Mg Tablet) 25 mg PO DAILY@1700 [facility] Last Admin: 08/15/23 16:17 Dose: 25 mg Sumatriptan Succinate (Sumatriptan Succinate 50 Mg Tablet) 50 mg PO DAILY MRX1 PRN PRN Reason: Migraine Headache Last Admin: 08/15/23 14:57 Dose: 50 mg Thiamine HCl (Thiamine Hcl 100 Mg Tablet) 100 mg PO DAILY [facility] Last Admin: 08/16/23 08:33 Dose: 100 mg Trazodone HCl (Trazodone Hcl 50 Mg Tablet) 50 mg PO BEDTIME MRX1 PRN PRN Reason: Insomnia Last Admin: 08/15/23 23:47 Dose: 50 mg Allergies Allergies Allergy/AdvReac Type Severity Reaction Status Date / Time Sulfa (Sulfonamide Allergy Severe ANAPHYLAXIS Unverified 11/11/19 17:55 Antibiotics) [SULFA (SULFONAMIDE ANTIBIOTICS)] Assessment & Plan Assessment & Plan (1) Alcohol abuse with alcohol-induced mental disorder: Status: Acute Code(s): F10.188 - Alcohol abuse with other alcohol-induced disorder Plan The patient is a 78-year-old male with a past history of alcohol use disorder who was brought to the emergency room of another hospital for psychotic symptoms at the this moment currently denies. 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 Plan 1. Gather collateral information. We will try to contact his family and start working on proper diagnosis and treatment plan. 2. Continue with medications as prescribed. 3. We will continue with medical workout. 4. MRI without contrast done that showed no destruction of pulmonary by this. 5. 15 minute checks since the patient is able to contract for safety.. 6. Start Namenda 5 mg p.o. b.i.d. to target cognitive impairment due to dementia. 7. Even though that his dementia is advanced, we will start Aricept 5 mg p.o. q.h.s. in combination with Namenda since it can help on diminishing the progression of his cognitive impairment. On March 05 we increased Aricept to 10 mg p.o. q.h.s. the plan is to increase over the weekend to Namenda 10 mg p.o. b.i.d. 8. Waiting for placement. 9. Seroquel 25 mg p.o. at 17:00 to avoid ing. 08/16/23 - CTP Reason for continued inpatient stay Substantial Risk for: inability to function and rapid decompensation Time Spent With Patient Time: Total time managing care of this patient today ____ minutes.
[2023-08-16] MEDS: QUEtiapine Fumarate 25 MG TABLET PO (17:47)
[2023-08-16 20:00] VITALS: BP 149/67; PULSE 80; RESP 16; TEMP 36.6; O2SAT 98
[2023-08-16] MEDS: traZODone HCL 50 MG TABLET PO (20:27)
[2023-08-16] MEDS: Donepezil HCl 10 MG TABLET PO (20:27)
[2023-08-16] MEDS: Magnesium Hydrox/Alum Hydrox 30 ML ORAL.SUSP PO (20:42)
[2023-08-17 08:01] VITALS: BP 133/71; PULSE 67; RESP 16; TEMP 36.3; O2SAT 98
[2023-08-17] MEDS: Thiamine HCL 100 MG TABLET PO (09:03)
[2023-08-17] MEDS: Brimonidine Tartrate 0.2% Oph 5 ML BOTTLE 1 DROP EYE-BOTH ×3 (09:03→20:22)
[2023-08-17] MEDS: Memantine HCl 5 MG TABLET PO ×2 (09:03→20:23)
--- NOTE | 2023-08-17 13:25 | P.PNPSI_ITS ---
Subjective Subjective Date of Service: 08/17/23 Reason For Visit: Adjustment disorder,w/mixed disturbance of emotion Subjective Notes: Conditional Voluntary Interim History: 78 yo with terrible short term memory recurrently coming up to ask about his razor insists despite what nursing say that it is here- (pt has been asked to call son to find it) Also after having 20 min conversation with me, comes up 30 min later looking for person he was to speak with today- We discussed how he misses his son and daughter- son in [place] and daugther in [facility]- He denies depression other than missing family and hoping for dc- plan- Medication Compliance: Yes Side effects from medications: No Attending Groups: Yes Review of Systems Acute medical concerns: No Medical Review of Systems: unchanged Mental Status Exam Mental Status Exam Narrative: Kempt except dick which he would like to shave Patient Appearance: Appropriate Patient Orientation: Person and Place Level of Consciousness: Awake Patient Behavior: Cooperative Mood Description: Anxious and Sad Affect Description: Apprehensive Patient Cognition Impaired: Yes Ability to Follow Directions: Fair Speech Pattern: Clear Thought Process: Rumination Thought Content: positive for [place] Depressive Symptoms: Crying Spells Judgement: Poor Diagnostics Vital Signs (24Hr): Vital Signs - 24 hr 08/16/23 20:00 08/17/23 08:01 Temperature 97.8 F 97.3 F Pulse Rate 80 67 Respiratory Rate 16 16 Blood Pressure 149/67 H 133/71 Pulse Oximetry 98 98 Oxygen Delivery Method Room Air Room Air BMI result Body Mass Index 20.8 Labs 07/29/23 08:35 Imaging Radiology Impressions: ITS Impressions Shoulder X-Ray 07/30/23 09:55 IMPRESSION: 1. No metallic foreign body. 2. Calcification adjacent to the humeral head likely on the basis of calcific tendinosis. Orbit X-Ray 07/30/23 11:07 IMPRESSION: 1. No unexpected radiopaque foreign bodies. 2. Clear lungs. 3. Nonobstructive bowel gas pattern. 4. Moderate to large degree of colonic stool burden. Brain MRI 07/30/23 20:40 IMPRESSION: No acute intracranial abnormality. No findings to suggest Wernicke encephalopathy. Medications Medications Current Medications Acetaminophen (Acetaminophen 325 Mg Tablet) 650 mg PO Q6H PRN PRN Reason: Headache/Pain Mild Scale (1-3) Last Admin: 08/15/23 14:58 Dose: 650 mg Al Hydroxide/Mg Hydroxide (Magnesium Hydrox/Alum Hydrox 30 Ml Oral.Susp) 30 ml PO Q6H PRN PRN Reason: Heartburn/Nausea Last Admin: 08/16/23 20:42 Dose: 30 ml Brimonidine Tartrate (Brimonidine Tartrate 0.2% Oph 5 Ml Bottle) 1 drop EYE- BOTH TID [facility] Last Admin: 08/17/23 09:03 Dose: 1 drop Donepezil HCl (Donepezil Hcl 10 Mg Tablet) 10 mg PO BEDTIME [facility] Last Admin: 08/16/23 20:27 Dose: 10 mg Guaifenesin (Guaifenesin 200 Mg/10 Ml 10 Ml Liquid) 10 ml PO Q6H PRN PRN Reason: Cough Lidocaine (Lidocaine 4 % Patch Adh..Patch) 2 patch TRANSDERMA DAILY PRN; Protocol PRN Reason: bilateral low back pain Last Admin: 08/06/23 00:36 Dose: 1 patch Magnesium Hydroxide (Milk Of Magnesia 30 Ml Oral.Susp) 30 ml PO DAILY PRN PRN Reason: Constipation Memantine (Memantine Hcl 5 Mg Tablet) 5 mg PO BID [facility] Last Admin: 08/17/23 09:03 Dose: 5 mg Quetiapine Fumarate (Quetiapine Fumarate 25 Mg Tablet) 25 mg PO BID PRN PRN Reason: anxiety/agitation Last Admin: 08/15/23 23:47 Dose: 25 mg Quetiapine Fumarate (Quetiapine Fumarate 25 Mg Tablet) 25 mg PO DAILY@1700 [facility] Last Admin: 08/16/23 17:47 Dose: 25 mg Sumatriptan Succinate (Sumatriptan Succinate 50 Mg Tablet) 50 mg PO DAILY MRX1 PRN PRN Reason: Migraine Headache Last Admin: 08/15/23 14:57 Dose: 50 mg Thiamine HCl (Thiamine Hcl 100 Mg Tablet) 100 mg PO DAILY [facility] Last Admin: 08/17/23 09:03 Dose: 100 mg Trazodone HCl (Trazodone Hcl 50 Mg Tablet) 50 mg PO BEDTIME MRX1 PRN PRN Reason: Insomnia Last Admin: 08/16/23 20:27 Dose: 50 mg Allergies Allergies Allergy/AdvReac Type Severity Reaction Status Date / Time Sulfa (Sulfonamide Allergy Severe ANAPHYLAXIS Unverified 11/11/19 17:55 Antibiotics) [SULFA (SULFONAMIDE ANTIBIOTICS)] Assessment & Plan Assessment & Plan (1) Alcohol abuse with alcohol-induced mental disorder: Status: Acute Code(s): F10.188 - Alcohol abuse with other alcohol-induced disorder Plan The patient is a 78-year-old male with a past history of alcohol use disorder who was brought to the emergency room of another hospital for psychotic symptoms at the this moment currently denies. 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 Plan 1. Gather collateral information. We will try to contact his family and start working on proper diagnosis and treatment plan. 2. Continue with medications as prescribed. 3. We will continue with medical workout. 4. MRI without contrast done that showed no destruction of pulmonary by this. 5. 15 minute checks since the patient is able to contract for safety.. 6. Start Namenda 5 mg p.o. b.i.d. to target cognitive impairment due to dementia. 7. Even though that his dementia is advanced, we will start Aricept 5 mg p.o. q.h.s. in combination with Namenda since it can help on diminishing the progression of his cognitive impairment. On March 05 we increased Aricept to 10 mg p.o. q.h.s. the plan is to increase over the weekend to Namenda 10 mg p.o. b.i.d. 8. Waiting for placement. 9. Seroquel 25 mg p.o. at 17:00 to avoid ing. 08/16/23 - CTP 08/16 CTP Patient educated on: other Informed Consent: further education needed Reason for continued inpatient stay Substantial Risk for: rapid decompensation Time Spent With Patient Time: Total time managing care of this patient today ____ minutes.
[2023-08-17] MEDS: QUEtiapine Fumarate 25 MG TABLET PO ×2 (17:42→20:22)
[2023-08-17 20:00] VITALS: BP 133/66; PULSE 70; RESP 16; TEMP 36.4; O2SAT 97
[2023-08-17] MEDS: Donepezil HCl 10 MG TABLET PO (20:23)
[2023-08-17] MEDS: traZODone HCL 50 MG TABLET PO (20:23)
[2023-08-18] MEDS: QUEtiapine Fumarate 25 MG TABLET PO ×3 (03:19→20:41)
[2023-08-18] MEDS: traZODone HCL 50 MG TABLET PO ×3 (03:19→22:58)
[2023-08-18 08:00] VITALS: BP 113/56; PULSE 88; RESP 18; TEMP 36.5; O2SAT 98
[2023-08-18] MEDS: Memantine HCl 5 MG TABLET PO (08:18)
[2023-08-18] MEDS: Thiamine HCL 100 MG TABLET PO (08:18)
[2023-08-18] MEDS: Brimonidine Tartrate 0.2% Oph 5 ML BOTTLE 1 DROP EYE-BOTH ×3 (08:19→20:40)
[2023-08-18] MEDS: QUEtiapine Fumarate 25 MG TABLET 12.5 MG PO (13:03)
[2023-08-18] MEDS: SUMAtriptan succinate 50 MG TABLET PO (13:03)
[2023-08-18] MEDS: Acetaminophen 325 MG TABLET 650 MG PO (13:03)
--- NOTE | 2023-08-18 14:29 | HO.PSYCHPN ---
Subjective Subjective Date of Service: 08/18/23 Reason For Visit: Adjustment disorder,w/mixed disturbance of emotion Subjective Notes: Conditional Voluntary Interim History: The nursing staff reported the patient had been social, confused, looking for his car keys and other belongings. The staff has noticed that he Seroquel works better at this time but still he is anxious. On interview the patient is pleasantly confused, waiting for placement. We discussed with the team and we are going to increase Seroquel slightly up to 12.5 p.o. b.i.d. and 25 p.o. at 17:00 Mental Status Exam Mental Status Exam Patient Appearance: Appropriate Patient Orientation: Person and Situation Level of Consciousness: Awake Patient Behavior: Guarded and Passive Mood Description: Calm Affect Description: Constricted Patient Cognition Impaired: Yes Ability to Follow Directions: Good Speech Pattern: Clear Hallucinations: None Delusions: Not Present Thought Process: Distracted and Slowed Thinking Thought Content: positive for [place], positive for [place] and positive for Poverty of Content Judgement: Poor Diagnostics Vital Signs (24Hr): Vital Signs - 24 hr 08/17/23 20:00 08/18/23 08:00 Temperature 97.6 F 97.7 F Pulse Rate 70 88 Respiratory Rate 16 18 Blood Pressure 133/66 113/56 L Pulse Oximetry 97 98 Oxygen Delivery Method Room Air Room Air BMI result Body Mass Index 20.8 Labs 07/29/23 08:35 Imaging Radiology Impressions: ITS Impressions Shoulder X-Ray 07/30/23 09:55 IMPRESSION: 1. No metallic foreign body. 2. Calcification adjacent to the humeral head likely on the basis of calcific tendinosis. Orbit X-Ray 07/30/23 11:07 IMPRESSION: 1. No unexpected radiopaque foreign bodies. 2. Clear lungs. 3. Nonobstructive bowel gas pattern. 4. Moderate to large degree of colonic stool burden. Brain MRI 07/30/23 20:40 IMPRESSION: No acute intracranial abnormality. No findings to suggest Wernicke encephalopathy. Medications Medications Current Medications Acetaminophen (Acetaminophen 325 Mg Tablet) 650 mg PO Q6H PRN PRN Reason: Headache/Pain Mild Scale (1-3) Last Admin: 08/18/23 13:03 Dose: 650 mg Al Hydroxide/Mg Hydroxide (Magnesium Hydrox/Alum Hydrox 30 Ml Oral.Susp) 30 ml PO Q6H PRN PRN Reason: Heartburn/Nausea Last Admin: 08/16/23 20:42 Dose: 30 ml Brimonidine Tartrate (Brimonidine Tartrate 0.2% Oph 5 Ml Bottle) 1 drop EYE-BOTH TID [facility] Last Admin: 08/18/23 08:19 Dose: 1 drop Donepezil HCl (Donepezil Hcl 10 Mg Tablet) 10 mg PO BEDTIME [facility] Last Admin: 08/17/23 20:23 Dose: 10 mg Guaifenesin (Guaifenesin 200 Mg/10 Ml 10 Ml Liquid) 10 ml PO Q6H PRN PRN Reason: Cough Lidocaine (Lidocaine 4 % Patch Adh..Patch) 2 patch TRANSDERMA DAILY PRN; Protocol PRN Reason: bilateral low back pain Last Admin: 08/06/23 00:36 Dose: 1 patch Magnesium Hydroxide (Milk Of Magnesia 30 Ml Oral.Susp) 30 ml PO DAILY PRN PRN Reason: Constipation Memantine (Memantine Hcl 10 Mg Tablet) 10 mg PO BID [facility] Last Admin: 08/18/23 09:59 Dose: Not Given Quetiapine Fumarate (Quetiapine Fumarate 25 Mg Tablet) 25 mg PO BID PRN PRN Reason: anxiety/agitation Last Admin: 08/18/23 03:19 Dose: 25 mg Quetiapine Fumarate (Quetiapine Fumarate 25 Mg Tablet) 25 mg PO DAILY@1700 [facility] Last Admin: 08/17/23 17:42 Dose: 25 mg Quetiapine Fumarate (Quetiapine Fumarate 25 Mg Tablet) 12.5 mg PO BID@0830,1330 [facility] Last Admin: 08/18/23 13:03 Dose: 12.5 mg Sumatriptan Succinate (Sumatriptan Succinate 50 Mg Tablet) 50 mg PO DAILY MRX1 PRN PRN Reason: Migraine Headache Last Admin: 08/18/23 13:03 Dose: 50 mg Thiamine HCl (Thiamine Hcl 100 Mg Tablet) 100 mg PO DAILY [facility] Last Admin: 08/18/23 08:18 Dose: 100 mg Trazodone HCl (Trazodone Hcl 50 Mg Tablet) 50 mg PO BEDTIME MRX1 PRN PRN Reason: Insomnia Last Admin: 08/18/23 03:19 Dose: 50 mg Allergies Allergies Allergy/AdvReac Type Severity Reaction Status Date / Time Sulfa (Sulfonamide Allergy Severe ANAPHYLAXIS Unverified 11/11/19 17:55 Antibiotics) [SULFA (SULFONAMIDE ANTIBIOTICS)] Assessment & Plan Assessment & Plan (1) Alcohol abuse with alcohol-induced mental disorder: Status: Acute Code(s): F10.188 - Alcohol abuse with other alcohol-induced disorder Plan The patient is a 78-year-old male with a past history of alcohol use disorder who was brought to the emergency room of another hospital for psychotic symptoms at the this moment currently denies. 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 Plan 1. Gather collateral information. We will try to contact his family and start working on proper diagnosis and treatment plan. 2. Continue with medications as prescribed. 3. We will continue with medical workout. 4. MRI without contrast done that showed no destruction of pulmonary by this. 5. 15 minute checks since the patient is able to contract for safety.. 6. Start Namenda 5 mg p.o. b.i.d. to target cognitive impairment due to dementia. 7. Even though that his dementia is advanced, we will start Aricept 5 mg p.o. q.h.s. in combination with Namenda since it can help on diminishing the progression of his cognitive impairment. On March 05 we increased Aricept to 10 mg p.o. q.h.s. the plan is to increase over the weekend to Namenda 10 mg p.o. b.i.d. 8. Waiting for placement. 9. Seroquel 25 mg p.o. at 17:00 to avoid ing. 10. Increase Seroquel up 12.5 p.o. b.i.d. on August 17. Reason for continued inpatient stay Substantial Risk for: inability to function, rapid decompensation and med/psych decompensation Time Spent With Patient Time: Total time managing care of this patient today __20__ minutes.
[2023-08-18 20:00] VITALS: BP 117/56; PULSE 78; RESP 18; TEMP 36.8; O2SAT 95
[2023-08-18] MEDS: Donepezil HCl 10 MG TABLET PO (20:41)
[2023-08-18] MEDS: Memantine HCl 10 MG TABLET PO (20:41)
[2023-08-18] MEDS: clonazePAM 0.5 MG TABLET PO (23:18)
[2023-08-19] MEDS: SUMAtriptan succinate 50 MG TABLET PO (03:17)
[2023-08-19 08:00] VITALS: BP 139/65; PULSE 66; RESP 16; TEMP 36.6; O2SAT 96
[2023-08-19] MEDS: QUEtiapine Fumarate 25 MG TABLET 12.5 MG PO ×2 (08:44→13:29)
[2023-08-19] MEDS: Thiamine HCL 100 MG TABLET PO (08:44)
[2023-08-19] MEDS: Memantine HCl 10 MG TABLET PO ×2 (08:44→20:43)
[2023-08-19] MEDS: Brimonidine Tartrate 0.2% Oph 5 ML BOTTLE 1 DROP EYE-BOTH ×2 (13:29→20:43)
--- NOTE | 2023-08-19 15:28 | HO.PSYCHPN ---
Subjective Subjective Date of Service: 08/19/23 Reason For Visit: Adjustment disorder,w/mixed disturbance of emotion Subjective Notes: Conditional Voluntary Interim History: The nursing staff reported the patient had been wandering the unit upset looking for his razor his wallet. He slept 5 hours. The social media sr strategy manager reported that his son is working on financial clearance. On interview the patient remains pleasantly confused, waiting for placement. Mental Status Exam Mental Status Exam Patient Appearance: Appropriate Patient Orientation: Person Level of Consciousness: Awake and Appropriate Patient Behavior: Guarded and Passive Mood Description: Withdrawn Affect Description: Constricted Patient Cognition Impaired: Yes Ability to Follow Directions: Good Speech Pattern: Clear Hallucinations: None Delusions: Ideas of Reference Thought Process: Distracted and Slowed Thinking Thought Content: positive for [place] and positive for Poverty of Content Judgement: Poor Diagnostics Vital Signs (24Hr): Vital Signs - 24 hr 08/18/23 20:00 08/19/23 08:00 Temperature 98.2 F 97.8 F Pulse Rate 78 66 Respiratory Rate 18 16 Blood Pressure 117/56 L 139/65 Pulse Oximetry 95 96 Oxygen Delivery Method Room Air Room Air BMI result Body Mass Index 20.8 Labs 07/29/23 08:35 Imaging Radiology Impressions: ITS Impressions Shoulder X-Ray 07/30/23 09:55 IMPRESSION: 1. No metallic foreign body. 2. Calcification adjacent to the humeral head likely on the basis of calcific tendinosis. Orbit X-Ray 07/30/23 11:07 IMPRESSION: 1. No unexpected radiopaque foreign bodies. 2. Clear lungs. 3. Nonobstructive bowel gas pattern. 4. Moderate to large degree of colonic stool burden. Brain MRI 07/30/23 20:40 IMPRESSION: No acute intracranial abnormality. No findings to suggest Wernicke encephalopathy. Medications Medications Current Medications Acetaminophen (Acetaminophen 325 Mg Tablet) 650 mg PO Q6H PRN PRN Reason: Headache/Pain Mild Scale (1-3) Last Admin: 08/18/23 13:03 Dose: 650 mg Al Hydroxide/Mg Hydroxide (Magnesium Hydrox/Alum Hydrox 30 Ml Oral.Susp) 30 ml PO Q6H PRN PRN Reason: Heartburn/Nausea Last Admin: 08/16/23 20:42 Dose: 30 ml Brimonidine Tartrate (Brimonidine Tartrate 0.2% Oph 5 Ml Bottle) 1 drop EYE-BOTH TID [facility] Last Admin: 08/19/23 14:03 Dose: Not Given Donepezil HCl (Donepezil Hcl 10 Mg Tablet) 10 mg PO BEDTIME REPLACED BY [facility] Last Admin: 08/18/23 20:41 Dose: 10 mg Guaifenesin (Guaifenesin 200 Mg/10 Ml 10 Ml Liquid) 10 ml PO Q6H PRN PRN Reason: Cough Lidocaine (Lidocaine 4 % Patch Adh..Patch) 2 patch TRANSDERMA DAILY PRN; Protocol PRN Reason: bilateral low back pain Last Admin: 08/06/23 00:36 Dose: 1 patch Magnesium Hydroxide (Milk Of Magnesia 30 Ml Oral.Susp) 30 ml PO DAILY PRN PRN Reason: Constipation Memantine (Memantine Hcl 10 Mg Tablet) 10 mg PO BID [facility]PL[facility] Last Admin: 08/19/23 08:44 Dose: 10 mg Quetiapine Fumarate (Quetiapine Fumarate 25 Mg Tablet) 25 mg PO BID PRN PRN Reason: anxiety/agitation Last Admin: 08/18/23 20:41 Dose: 25 mg Quetiapine Fumarate (Quetiapine Fumarate 25 Mg Tablet) 25 mg PO DAILY@1700 [facility]PLAC[facility] Last Admin: 08/18/23 17:19 Dose: 25 mg Quetiapine Fumarate (Quetiapine Fumarate 25 Mg Tablet) 12.5 mg PO BID@0830,1330 REPLACED BY [facility] Last Admin: 08/19/23 13:29 Dose: 12.5 mg Sumatriptan Succinate (Sumatriptan Succinate 50 Mg Tablet) 50 mg PO DAILY MRX1 PRN PRN Reason: Migraine Headache Last Admin: 08/19/23 03:17 Dose: 50 mg Thiamine HCl (Thiamine Hcl 100 Mg Tablet) 100 mg PO DAILY REPLACED BY [facility] Last Admin: 08/19/23 08:44 Dose: 100 mg Trazodone HCl (Trazodone Hcl 50 Mg Tablet) 50 mg PO BEDTIME MRX1 PRN PRN Reason: Insomnia Last Admin: 08/18/23 22:58 Dose: 50 mg Allergies Allergies Allergy/AdvReac Type Severity Reaction Status Date / Time Sulfa (Sulfonamide Allergy Severe ANAPHYLAXIS Unverified 11/11/19 17:55 Antibiotics) [SULFA (SULFONAMIDE ANTIBIOTICS)] Assessment & Plan Assessment & Plan (1) Alcohol abuse with alcohol-induced mental disorder: Status: Acute Code(s): F10.188 - Alcohol abuse with other alcohol-induced disorder Plan The patient is a 78-year-old male with a past history of alcohol use disorder who was brought to the emergency room of another hospital for psychotic symptoms at the this moment currently denies. 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 Plan 1. Gather collateral information. We will try to contact his family and start working on proper diagnosis and treatment plan. 2. Continue with medications as prescribed. 3. We will continue with medical workout. 4. MRI without contrast done that showed no destruction of pulmonary by this. 5. 15 minute checks since the patient is able to contract for safety.. 6. Start Namenda 5 mg p.o. b.i.d. to target cognitive impairment due to dementia. 7. Even though that his dementia is advanced, we will start Aricept 5 mg p.o. q.h.s. in combination with Namenda since it can help on diminishing the progression of his cognitive impairment. On March 05 we increased Aricept to 10 mg p.o. q.h.s. the plan is to increase over the weekend to Namenda 10 mg p.o. b.i.d. 8. Waiting for placement. 9. Seroquel 25 mg p.o. at 17:00 to avoid . 10. Increase Seroquel up 12.5 p.o. b.i.d. on August 17. Reason for continued inpatient stay Substantial Risk for: inability to function, rapid decompensation and med/psych decompensation Time Spent With Patient Time: Total time managing care of this patient today __20__ minutes.
[2023-08-19] MEDS: QUEtiapine Fumarate 25 MG TABLET PO (17:25)
[2023-08-19 20:00] VITALS: BP 108/52; PULSE 76; TEMP 37; O2SAT 95
[2023-08-19] MEDS: Acetaminophen 325 MG TABLET 650 MG PO (20:43)
[2023-08-19] MEDS: traZODone HCL 50 MG TABLET PO (20:43)
[2023-08-19] MEDS: Donepezil HCl 10 MG TABLET PO (20:43)
[2023-08-19] MEDS: Nystatin Powder 15 GM BOTTLE 1 APPL TOPICAL (20:45)
[2023-08-19] MEDS: Lidocaine 4 % Patch ADH..PATCH 2 PATCH TRANSDERMA (20:45)
[2023-08-20] MEDS: Acetaminophen 325 MG TABLET 650 MG PO ×2 (03:38→11:16)
[2023-08-20 08:00] VITALS: BP 150/69; PULSE 77; RESP 17; TEMP 36.6; O2SAT 96
[2023-08-20] MEDS: QUEtiapine Fumarate 25 MG TABLET 12.5 MG PO ×2 (08:13→14:02)
[2023-08-20] MEDS: Memantine HCl 10 MG TABLET PO ×2 (08:13→20:14)
[2023-08-20] MEDS: Thiamine HCL 100 MG TABLET PO (08:13)
[2023-08-20] MEDS: Brimonidine Tartrate 0.2% Oph 5 ML BOTTLE 1 DROP EYE-BOTH ×3 (08:14→20:14)
[2023-08-20] MEDS: Nystatin Powder 15 GM BOTTLE 1 APPL TOPICAL ×2 (08:15→20:14)
--- NOTE | 2023-08-20 11:56 | HO.PSYCHPN ---
Subjective Subjective Date of Service: 08/20/23 Reason For Visit: Adjustment disorder,w/mixed disturbance of emotion Subjective Notes: Conditional Voluntary Interim History: The nursing staff reported no changes in his mental status has been napping and confused at times. On interview the patient denies new symptoms, waiting for placement. Mental Status Exam Mental Status Exam Patient Appearance: Appropriate Patient Orientation: Person and Situation Level of Consciousness: Awake and Appropriate Patient Behavior: Guarded and Passive Mood Description: Withdrawn Affect Description: Constricted Patient Cognition Impaired: Yes Ability to Follow Directions: Good Speech Pattern: Clear Hallucinations: None Delusions: Not Present Thought Process: Distracted Judgement: Fair Diagnostics Vital Signs (24Hr): Vital Signs - 24 hr 08/19/23 20:00 08/20/23 08:00 Temperature 98.6 F 98 F Pulse Rate 76 77 Respiratory Rate 17 Blood Pressure 108/52 L 150/69 H Pulse Oximetry 95 96 Oxygen Delivery Method Room Air Room Air BMI result Body Mass Index 20.8 Labs 07/29/23 08:35 Imaging Radiology Impressions: ITS Impressions Shoulder X-Ray 07/30/23 09:55 IMPRESSION: 1. No metallic foreign body. 2. Calcification adjacent to the humeral head likely on the basis of calcific tendinosis. Orbit X-Ray 07/30/23 11:07 IMPRESSION: 1. No unexpected radiopaque foreign bodies. 2. Clear lungs. 3. Nonobstructive bowel gas pattern. 4. Moderate to large degree of colonic stool burden. Brain MRI 07/30/23 20:40 IMPRESSION: No acute intracranial abnormality. No findings to suggest Wernicke encephalopathy. Medications Medications Current Medications Acetaminophen (Acetaminophen 325 Mg Tablet) 650 mg PO Q6H PRN PRN Reason: Headache/Pain Mild Scale (1-3) Last Admin: 08/20/23 11:16 Dose: 650 mg Al Hydroxide/Mg Hydroxide (Magnesium Hydrox/Alum Hydrox 30 Ml Oral.Susp) 30 ml PO Q6H PRN PRN Reason: Heartburn/Nausea Last Admin: 08/16/23 20:42 Dose: 30 ml Brimonidine Tartrate (Brimonidine Tartrate 0.2% Oph 5 Ml Bottle) 1 drop EYE-BOTH TID [facility] Last Admin: 08/20/23 08:14 Dose: 1 drop Donepezil HCl (Donepezil Hcl 10 Mg Tablet) 10 mg PO BEDTIME [facility] Last Admin: 08/19/23 20:43 Dose: 10 mg Guaifenesin (Guaifenesin 200 Mg/10 Ml 10 Ml Liquid) 10 ml PO Q6H PRN PRN Reason: Cough Lidocaine (Lidocaine 4 % Patch Adh..Patch) 2 patch TRANSDERMA DAILY PRN; Protocol PRN Reason: bilateral low back pain Last Admin: 08/19/23 20:45 Dose: 2 patch Magnesium Hydroxide (Milk Of Magnesia 30 Ml Oral.Susp) 30 ml PO DAILY PRN PRN Reason: Constipation Memantine (Memantine Hcl 10 Mg Tablet) 10 mg PO BID [facility] Last Admin: 08/20/23 08:13 Dose: 10 mg Nystatin (Nystatin Powder 15 Gm Bottle) 1 appl TOPICAL BID [facility]; Protocol Last Admin: 08/20/23 08:15 Dose: 1 appl Quetiapine Fumarate (Quetiapine Fumarate 25 Mg Tablet) 25 mg PO BID PRN PRN Reason: anxiety/agitation Last Admin: 08/18/23 20:41 Dose: 25 mg Quetiapine Fumarate (Quetiapine Fumarate 25 Mg Tablet) 25 mg PO DAILY@1700 [facility] Last Admin: 08/19/23 17:25 Dose: 25 mg Quetiapine Fumarate (Quetiapine Fumarate 25 Mg Tablet) 12.5 mg PO BID@0830,1330 [facility] Last Admin: 08/20/23 08:13 Dose: 12.5 mg Sumatriptan Succinate (Sumatriptan Succinate 50 Mg Tablet) 50 mg PO DAILY MRX1 PRN PRN Reason: Migraine Headache Last Admin: 08/19/23 03:17 Dose: 50 mg Thiamine HCl (Thiamine Hcl 100 Mg Tablet) 100 mg PO DAILY [facility] Last Admin: 08/20/23 08:13 Dose: 100 mg Trazodone HCl (Trazodone Hcl 50 Mg Tablet) 50 mg PO BEDTIME MRX1 PRN PRN Reason: Insomnia Last Admin: 08/19/23 20:43 Dose: 50 mg Allergies Allergies Allergy/AdvReac Type Severity Reaction Status Date / Time Sulfa (Sulfonamide Allergy Severe ANAPHYLAXIS Unverified 11/11/19 17:55 Antibiotics) [SULFA (SULFONAMIDE ANTIBIOTICS)] Assessment & Plan Assessment & Plan (1) Alcohol abuse with alcohol-induced mental disorder: Status: Acute Code(s): F10.188 - Alcohol abuse with other alcohol-induced disorder Plan The patient is a 78-year-old male with a past history of alcohol use disorder who was brought to the emergency room of another hospital for psychotic symptoms at the this moment currently denies. 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 Plan 1. Gather collateral information. We will try to contact his family and start working on proper diagnosis and treatment plan. 2. Continue with medications as prescribed. 3. We will continue with medical workout. 4. MRI without contrast done that showed no destruction of pulmonary by this. 5. 15 minute checks since the patient is able to contract for safety.. 6. Start Namenda 5 mg p.o. b.i.d. to target cognitive impairment due to dementia. 7. Even though that his dementia is advanced, we will start Aricept 5 mg p.o. q.h.s. in combination with Namenda since it can help on diminishing the progression of his cognitive impairment. On March 05 we increased Aricept to 10 mg p.o. q.h.s. the plan is to increase over the weekend to Namenda 10 mg p.o. b.i.d. 8. Waiting for placement. 9. Seroquel 25 mg p.o. at 17:00 to avoid ing. 10. Increase Seroquel up 12.5 p.o. b.i.d. on August 17. Reason for continued inpatient stay Substantial Risk for: inability to function, rapid decompensation and med/psych decompensation Time Spent With Patient Time: Total time managing care of this patient today __20__ minutes.
[2023-08-20] MEDS: QUEtiapine Fumarate 25 MG TABLET PO (16:48)
[2023-08-20 20:00] VITALS: BP 150/65; PULSE 84; RESP 19; TEMP 36.5; O2SAT 98
[2023-08-20] MEDS: Donepezil HCl 10 MG TABLET PO (20:14)
[2023-08-20] MEDS: traZODone HCL 50 MG TABLET PO (22:39)
[2023-08-21] MEDS: traZODone HCL 50 MG TABLET PO (01:10)
[2023-08-21] MEDS: Acetaminophen 325 MG TABLET 650 MG PO (01:10)
[2023-08-21] MEDS: QUEtiapine Fumarate 25 MG TABLET PO ×2 (01:10→17:07)
[2023-08-21 08:00] VITALS: BP 137/61; PULSE 87; RESP 18; TEMP 36.8; O2SAT 96
[2023-08-21] MEDS: Thiamine HCL 100 MG TABLET PO (09:25)
[2023-08-21] MEDS: QUEtiapine Fumarate 25 MG TABLET 12.5 MG PO ×2 (09:25→13:33)
[2023-08-21] MEDS: Memantine HCl 10 MG TABLET PO ×2 (09:25→20:03)
[2023-08-21] MEDS: Brimonidine Tartrate 0.2% Oph 5 ML BOTTLE 1 DROP EYE-BOTH ×3 (09:31→20:03)
[2023-08-21] MEDS: Nystatin Powder 15 GM BOTTLE 1 APPL TOPICAL ×2 (09:33→20:04)
[2023-08-21 12:23] VITALS: BMI 21.4
--- NOTE | 2023-08-21 12:34 | P.PNPSI_ITS ---
Subjective Subjective Date of Service: 08/21/23 Reason For Visit: Adjustment disorder,w/mixed disturbance of emotion Subjective Notes: Conditional Voluntary Interim History: The nursing staff reported the patient had been confused social with peers asking for his keys. He took trazodone at night complained of back pain and took Tylenol. On interview the patient remains confused. We are adding tramadol p.r.n. for moderate pain. The healthcare social worker reported that they are working on his [employer] for placement. Mental Status Exam Mental Status Exam Patient Appearance: Appropriate Patient Orientation: Person and Situation Level of Consciousness: Awake and Appropriate Patient Behavior: Guarded and Passive Mood Description: Withdrawn Affect Description: Constricted Patient Cognition Impaired: Yes Ability to Follow Directions: Good Speech Pattern: Clear Hallucinations: None Delusions: Not Present Thought Process: Distracted and Slowed Thinking Thought Content: positive for [place] and positive for Poverty of Content Judgement: Poor Diagnostics Vital Signs (24Hr): Vital Signs - 24 hr 08/20/23 20:00 08/21/23 08:00 Temperature 97.7 F 98.2 F Pulse Rate 84 87 Respiratory Rate 19 18 Blood Pressure 150/65 H 137/61 Pulse Oximetry 98 96 Oxygen Delivery Method Room Air Room Air BMI result Body Mass Index 21.4 Labs 07/29/23 08:35 Imaging Radiology Impressions: ITS Impressions Shoulder X-Ray 07/30/23 09:55 IMPRESSION: 1. No metallic foreign body. 2. Calcification adjacent to the humeral head likely on the basis of calcific tendinosis. Orbit X-Ray 07/30/23 11:07 IMPRESSION: 1. No unexpected radiopaque foreign bodies. 2. Clear lungs. 3. Nonobstructive bowel gas pattern. 4. Moderate to large degree of colonic stool burden. Brain MRI 07/30/23 20:40 IMPRESSION: No acute intracranial abnormality. No findings to suggest Wernicke encephalopathy. Medications Medications Current Medications Acetaminophen (Acetaminophen 325 Mg Tablet) 650 mg PO Q6H PRN PRN Reason: Headache/Pain Mild Scale (1-3) Last Admin: 08/21/23 01:10 Dose: 650 mg Al Hydroxide/Mg Hydroxide (Magnesium Hydrox/Alum Hydrox 30 Ml Oral.Susp) 30 ml PO Q6H PRN PRN Reason: Heartburn/Nausea Last Admin: 08/16/23 20:42 Dose: 30 ml Brimonidine Tartrate (Brimonidine Tartrate 0.2% Oph 5 Ml Bottle) 1 drop E[facility]- BOTH TID [facility] Last Admin: 08/21/23 09:31 Dose: 1 drop Donepezil HCl (Donepezil Hcl 10 Mg Tablet) 10 mg PO BEDTIME [facility] Last Admin: 08/20/23 20:14 Dose: 10 mg Guaifenesin (Guaifenesin 200 Mg/10 Ml 10 Ml Liquid) 10 ml PO Q6H PRN PRN Reason: Cough Lidocaine (Lidocaine 4 % Patch Adh..Patch) 2 patch TRANSDERMA DAILY PRN; Protocol PRN Reason: bilateral low back pain Last Admin: 08/19/23 20:45 Dose: 2 patch Magnesium Hydroxide (Milk Of Magnesia 30 Ml Oral.Susp) 30 ml PO DAILY PRN PRN Reason: Constipation Memantine (Memantine Hcl 10 Mg Tablet) 10 mg PO BID [facility] Last Admin: 08/21/23 09:25 Dose: 10 mg Nystatin (Nystatin Powder 15 Gm Bottle) 1 appl TOPICAL BID [facility]; Protocol Last Admin: 08/21/23 09:33 Dose: 1 appl Quetiapine Fumarate (Quetiapine Fumarate 25 Mg Tablet) 25 mg PO BID PRN PRN Reason: anxiety/agitation Last Admin: 08/21/23 01:10 Dose: 25 mg Quetiapine Fumarate (Quetiapine Fumarate 25 Mg Tablet) 25 mg PO DAILY@1700 [facility] Last Admin: 08/20/23 16:48 Dose: 25 mg Quetiapine Fumarate (Quetiapine Fumarate 25 Mg Tablet) 12.5 mg PO BID@0830,1330 [facility] Last Admin: 08/21/23 09:25 Dose: 12.5 mg Sumatriptan Succinate (Sumatriptan Succinate 50 Mg Tablet) 50 mg PO DAILY MRX1 PRN PRN Reason: Migraine Headache Last Admin: 08/19/23 03:17 Dose: 50 mg Thiamine HCl (Thiamine Hcl 100 Mg Tablet) 100 mg PO DAILY [facility] Last Admin: 08/21/23 09:25 Dose: 100 mg Tramadol HCl (Tramadol Hcl 50 Mg Tablet) 50 mg PO Q4H PRN PRN Reason: Pain, Moderate(Pain Scale 4-6) Trazodone HCl (Trazodone Hcl 50 Mg Tablet) 50 mg PO BEDTIME MRX1 PRN PRN Reason: Insomnia Last Admin: 08/21/23 01:10 Dose: 50 mg Allergies Allergies Allergy/AdvReac Type Severity Reaction Status Date / Time Sulfa (Sulfonamide Allergy Severe ANAPHYLAXIS Unverified 11/11/19 17:55 Antibiotics) [SULFA (SULFONAMIDE ANTIBIOTICS)] Assessment & Plan Assessment & Plan (1) Alcohol abuse with alcohol-induced mental disorder: Status: Acute Code(s): F10.188 - Alcohol abuse with other alcohol-induced disorder Plan The patient is a 78-year-old male with a past history of alcohol use disorder who was brought to the emergency room of another hospital for psychotic symptoms at the this moment currently denies. 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 Plan 1. Gather collateral information. We will try to contact his family and start working on proper diagnosis and treatment plan. 2. Continue with medications as prescribed. 3. We will continue with medical workout. 4. MRI without contrast done that showed no destruction of pulmonary by this. 5. 15 minute checks since the patient is able to contract for safety.. 6. Start Namenda 5 mg p.o. b.i.d. to target cognitive impairment due to dementia. 7. Even though that his dementia is advanced, we will start Aricept 5 mg p.o. q.h.s. in combination with Namenda since it can help on diminishing the progression of his cognitive impairment. On March 05 we increased Aricept to 10 mg p.o. q.h.s. the plan is to increase over the weekend to Namenda 10 mg p.o. b.i.d. 8. Waiting for placement. 9. Seroquel 25 mg p.o. at 17:00 to avoid . 10. Increase Seroquel up 12.5 p.o. b.i.d. on August 17. 11. Start tramadol p.r.n. [id number] pain on August 20. Reason for continued inpatient stay Substantial Risk for: inability to function, rapid decompensation and med/psych decompensation Time Spent With Patient Time: Total time managing care of this patient today __20__ minutes.
[2023-08-21 20:00] VITALS: BP 130/62; PULSE 69; RESP 16; TEMP 36.2; O2SAT 95
[2023-08-21] MEDS: traMADoL HCL 50 MG TABLET PO (20:03)
[2023-08-21] MEDS: Donepezil HCl 10 MG TABLET PO (20:03)
[2023-08-22] MEDS: traZODone HCL 50 MG TABLET PO ×3 (01:24→22:33)
[2023-08-22] MEDS: Lidocaine 4 % Patch ADH..PATCH 2 PATCH TRANSDERMA (01:24)
[2023-08-22] MEDS: traMADoL HCL 50 MG TABLET PO ×3 (01:24→20:47)
[2023-08-22] MEDS: SUMAtriptan succinate 50 MG TABLET PO (03:37)
[2023-08-22 08:58] VITALS: BP 141/65; PULSE 77; RESP 15; TEMP 36.2; O2SAT 97
[2023-08-22] MEDS: QUEtiapine Fumarate 25 MG TABLET 12.5 MG PO ×2 (08:59→14:57)
[2023-08-22] MEDS: Thiamine HCL 100 MG TABLET PO (09:01)
[2023-08-22] MEDS: Memantine HCl 10 MG TABLET PO ×2 (09:01→20:48)
[2023-08-22] MEDS: Brimonidine Tartrate 0.2% Oph 5 ML BOTTLE 1 DROP EYE-BOTH ×3 (09:01→20:48)
--- NOTE | 2023-08-22 12:28 | HO.PSYCHPN ---
Subjective Subjective Date of Service: 08/22/23 Reason For Visit: Adjustment disorder,w/mixed disturbance of emotion Subjective Notes: Conditional Voluntary Interim History: Nursing staff reported the patient had been pleasant, he took a shower yesterday compliant back pain.? He slept 4 hours. On interview the patient remains pleasantly confused, waiting for placement. Medication Compliance: Yes Side effects from medications: No Mental Status Exam Mental Status Exam Patient Appearance: Well Grooomed and Appropriate Patient Orientation: Person and Place Level of Consciousness: Awake Patient Behavior: Guarded and Passive Mood Description: Withdrawn Affect Description: Constricted Patient Cognition Impaired: Yes Ability to Follow Directions: Good Speech Pattern: Clear Hallucinations: None Delusions: Not Present Thought Process: Distracted and Slowed Thinking Thought Content: positive for Poverty of Content and positive for Thought Blocking Judgement: Poor Diagnostics Vital Signs (24Hr): Vital Signs - 24 hr 08/21/23 20:00 08/22/23 08:58 Temperature 97.1 F 97.2 F Pulse Rate 69 77 Respiratory Rate 16 15 Blood Pressure 130/62 141/65 H Pulse Oximetry 95 97 Oxygen Delivery Method Room Air Room Air BMI result Body Mass Index 21.4 Labs 07/29/23 08:35 Imaging Radiology Impressions: ITS Impressions Shoulder X-Ray 07/30/23 09:55 IMPRESSION: 1. No metallic foreign body. 2. Calcification adjacent to the humeral head likely on the basis of calcific tendinosis. Orbit X-Ray 07/30/23 11:07 IMPRESSION: 1. No unexpected radiopaque foreign bodies. 2. Clear lungs. 3. Nonobstructive bowel gas pattern. 4. Moderate to large degree of colonic stool burden. Brain MRI 07/30/23 20:40 IMPRESSION: No acute intracranial abnormality. No findings to suggest Wernicke encephalopathy. Medications Medications Current Medications Acetaminophen (Acetaminophen 325 Mg Tablet) 650 mg PO Q6H PRN PRN Reason: Headache/Pain Mild Scale (1-3) Last Admin: 08/21/23 01:10 Dose: 650 mg Al Hydroxide/Mg Hydroxide (Magnesium Hydrox/Alum Hydrox 30 Ml Oral.Susp) 30 ml PO Q6H PRN PRN Reason: Heartburn/Nausea Last Admin: 08/16/23 20:42 Dose: 30 ml Brimonidine Tartrate (Brimonidine Tartrate 0.2% Oph 5 Ml Bottle) 1 drop EYE-BOTH TID [facility] Last Admin: 08/22/23 09:01 Dose: 1 drop Donepezil HCl (Donepezil Hcl 10 Mg Tablet) 10 mg PO BEDTIME [facility] Last Admin: 08/21/23 20:03 Dose: 10 mg Guaifenesin (Guaifenesin 200 Mg/10 Ml 10 Ml Liquid) 10 ml PO Q6H PRN PRN Reason: Cough Lidocaine (Lidocaine 4 % Patch Adh..Patch) 2 patch TRANSDERMA DAILY PRN; Protocol PRN Reason: bilateral low back pain Last Admin: 08/22/23 01:24 Dose: 2 patch Magnesium Hydroxide (Milk Of Magnesia 30 Ml Oral.Susp) 30 ml PO DAILY PRN PRN Reason: Constipation Memantine (Memantine Hcl 10 Mg Tablet) 10 mg PO BID [facility] Last Admin: 08/22/23 09:01 Dose: 10 mg Nystatin (Nystatin Powder 15 Gm Bottle) 1 appl TOPICAL BID [facility]; Protocol Last Admin: 08/22/23 11:07 Dose: Not Given Quetiapine Fumarate (Quetiapine Fumarate 25 Mg Tablet) 25 mg PO BID PRN PRN Reason: anxiety/agitation Last Admin: 08/21/23 01:10 Dose: 25 mg Quetiapine Fumarate (Quetiapine Fumarate 25 Mg Tablet) 25 mg PO DAILY@1700 [facility] Last Admin: 08/21/23 17:07 Dose: 25 mg Quetiapine Fumarate (Quetiapine Fumarate 25 Mg Tablet) 12.5 mg PO BID@0830,1330 [facility] Last Admin: 08/22/23 08:59 Dose: 12.5 mg Sumatriptan Succinate (Sumatriptan Succinate 50 Mg Tablet) 50 mg PO DAILY MRX1 PRN PRN Reason: Migraine Headache Last Admin: 08/22/23 03:37 Dose: 50 mg Thiamine HCl (Thiamine Hcl 100 Mg Tablet) 100 mg PO DAILY [facility] Last Admin: 08/22/23 09:01 Dose: 100 mg Tramadol HCl (Tramadol Hcl 50 Mg Tablet) 50 mg PO Q4H PRN PRN Reason: Pain, Moderate(Pain Scale 4-6) Last Admin: 08/22/23 10:53 Dose: 50 mg Trazodone HCl (Trazodone Hcl 50 Mg Tablet) 50 mg PO BEDTIME MRX1 PRN PRN Reason: Insomnia Last Admin: 08/22/23 01:24 Dose: 50 mg Allergies Allergies Allergy/AdvReac Type Severity Reaction Status Date / Time Sulfa (Sulfonamide Allergy Severe ANAPHYLAXIS Unverified 11/11/19 17:55 Antibiotics) [SULFA (SULFONAMIDE ANTIBIOTICS)] Assessment & Plan Assessment & Plan (1) Alcohol abuse with alcohol-induced mental disorder: Status: Acute Code(s): F10.188 - Alcohol abuse with other alcohol-induced disorder Plan The patient is a 78-year-old male with a past history of alcohol use disorder who was brought to the emergency room of another hospital for psychotic symptoms at the this moment currently denies. 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 Plan 1. Gather collateral information. We will try to contact his family and start working on proper diagnosis and treatment plan. 2. Continue with medications as prescribed. 3. We will continue with medical workout. 4. MRI without contrast done that showed no destruction of pulmonary by this. 5. 15 minute checks since the patient is able to contract for safety.. 6. Start Namenda 5 mg p.o. b.i.d. to target cognitive impairment due to dementia. 7. Even though that his dementia is advanced, we will start Aricept 5 mg p.o. q.h.s. in combination with Namenda since it can help on diminishing the progression of his cognitive impairment. On March 05 we increased Aricept to 10 mg p.o. q.h.s. the plan is to increase over the weekend to Namenda 10 mg p.o. b.i.d. 8. Waiting for placement. 9. Seroquel 25 mg p.o. at 17:00 to avoid . 10. Increase Seroquel up 12.5 p.o. b.i.d. on August 17. 11. Start tramadol p.r.n. [id number] pain on August 20. Reason for continued inpatient stay Substantial Risk for: inability to function, rapid decompensation and med/psych decompensation Time Spent With Patient Time: Total time managing care of this patient today __20__ minutes.
[2023-08-22] MEDS: QUEtiapine Fumarate 25 MG TABLET PO ×2 (17:22→20:47)
[2023-08-22 20:00] VITALS: BP 126/76; PULSE 88; RESP 16; TEMP 36.4; O2SAT 97
[2023-08-22] MEDS: Nystatin Powder 15 GM BOTTLE 1 APPL TOPICAL (20:46)
[2023-08-22] MEDS: Donepezil HCl 10 MG TABLET PO (20:47)
[2023-08-22] MEDS: Acetaminophen 325 MG TABLET 650 MG PO (22:33)
[2023-08-22] MEDS: Magnesium Hydrox/Alum Hydrox 30 ML ORAL.SUSP PO (22:43)
[2023-08-23] MEDS: traMADoL HCL 50 MG TABLET PO ×2 (06:11→18:13)
[2023-08-23 08:38] VITALS: BP 121/57; PULSE 71; RESP 15; TEMP 36.7; O2SAT 97
[2023-08-23] MEDS: Milk of Magnesia 30 ML ORAL.SUSP PO (08:41)
[2023-08-23] MEDS: QUEtiapine Fumarate 25 MG TABLET 12.5 MG PO ×2 (08:43→13:04)
[2023-08-23] MEDS: Memantine HCl 10 MG TABLET PO ×2 (08:43→20:39)
[2023-08-23] MEDS: Thiamine HCL 100 MG TABLET PO (08:43)
[2023-08-23] MEDS: Brimonidine Tartrate 0.2% Oph 5 ML BOTTLE 1 DROP EYE-BOTH ×3 (08:44→20:42)
[2023-08-23] MEDS: Nystatin Powder 15 GM BOTTLE 1 APPL TOPICAL ×2 (08:44→20:39)
--- NOTE | 2023-08-23 09:21 | HO.PSYCHPN ---
Subjective Subjective Date of Service: 08/23/23 Reason For Visit: Adjustment disorder,w/mixed disturbance of emotion Subjective Notes: Conditional Voluntary Interim History: The nursing staff reported the patient slept 5 hours he was up at 03:00 o'clock in the morning and received trazodone and other PRNs. The staff has noticed that he is more restless in the evening so we are going to increase Seroquel 25 at bedtime on top of the Seroquel 25 at 17:00. On interview the patient denies new symptoms pleasantly confused. Mental Status Exam Mental Status Exam Patient Appearance: Appropriate Patient Orientation: Person and Situation Level of Consciousness: Awake and Appropriate Patient Behavior: Passive Mood Description: Withdrawn and Constricted Affect Description: Calm Patient Cognition Impaired: Yes Ability to Follow Directions: Good Speech Pattern: Clear Hallucinations: None Delusions: Not Present Thought Process: Distracted and Slowed Thinking Thought Content: positive for [place] and positive for Poverty of Content Judgement: Poor Diagnostics Vital Signs (24Hr): Vital Signs - 24 hr 08/22/23 20:00 08/23/23 08:38 Temperature 97.5 F 98.1 F Pulse Rate 88 71 Respiratory Rate 16 15 Blood Pressure 126/76 121/57 L Pulse Oximetry 97 97 Oxygen Delivery Method Room Air Room Air BMI result Body Mass Index 21.4 Labs 07/29/23 08:35 Imaging Radiology Impressions: ITS Impressions Shoulder X-Ray 07/30/23 09:55 IMPRESSION: 1. No metallic foreign body. 2. Calcification adjacent to the humeral head likely on the basis of calcific tendinosis. Orbit X-Ray 07/30/23 11:07 IMPRESSION: 1. No unexpected radiopaque foreign bodies. 2. Clear lungs. 3. Nonobstructive bowel gas pattern. 4. Moderate to large degree of colonic stool burden. Brain MRI 07/30/23 20:40 IMPRESSION: No acute intracranial abnormality. No findings to suggest Wernicke encephalopathy. Medications Medications Current Medications Acetaminophen (Acetaminophen 325 Mg Tablet) 650 mg PO Q6H PRN PRN Reason: Headache/Pain Mild Scale (1-3) Last Admin: 08/22/23 22:33 Dose: 650 mg Al Hydroxide/Mg Hydroxide (Magnesium Hydrox/Alum Hydrox 30 Ml Oral.Susp) 30 ml PO Q6H PRN PRN Reason: Heartburn/Nausea Last Admin: 06/28/24 22:43 Dose: 30 ml Brimonidine Tartrate (Brimonidine Tartrate 0.2% Oph 5 Ml Bottle) 1 drop EYE-BOTH TID [facility] Last Admin: 08/23/23 08:44 Dose: 1 drop Donepezil HCl (Donepezil Hcl 10 Mg Tablet) 10 mg PO BEDTIME [facility] Last Admin: 08/22/23 20:47 Dose: 10 mg Guaifenesin (Guaifenesin 200 Mg/10 Ml 10 Ml Liquid) 10 ml PO Q6H PRN PRN Reason: Cough Lidocaine (Lidocaine 4 % Patch Adh..Patch) 2 patch TRANSDERMA DAILY PRN; Protocol PRN Reason: bilateral low back pain Last Admin: 08/22/23 01:24 Dose: 2 patch Magnesium Hydroxide (Milk Of Magnesia 30 Ml Oral.Susp) 30 ml PO DAILY PRN PRN Reason: Constipation Last Admin: 08/23/23 08:41 Dose: 30 ml Memantine (Memantine Hcl 10 Mg Tablet) 10 mg PO BID [facility] Last Admin: 08/23/23 08:43 Dose: 10 mg Nystatin (Nystatin Powder 15 Gm Bottle) 1 appl TOPICAL BID [facility]; Protocol Last Admin: 08/23/23 08:44 Dose: 1 appl Quetiapine Fumarate (Quetiapine Fumarate 25 Mg Tablet) 25 mg PO BID PRN PRN Reason: anxiety/agitation Last Admin: 08/22/23 20:47 Dose: 25 mg Quetiapine Fumarate (Quetiapine Fumarate 25 Mg Tablet) 25 mg PO DAILY@1700 [facility] Last Admin: 08/22/23 17:22 Dose: 25 mg Quetiapine Fumarate (Quetiapine Fumarate 25 Mg Tablet) 12.5 mg PO BID@0830,1330 [facility] Last Admin: 08/23/23 08:43 Dose: 12.5 mg Quetiapine Fumarate (Quetiapine Fumarate 25 Mg Tablet) 25 mg PO BEDTIME [facility] Sumatriptan Succinate (Sumatriptan Succinate 50 Mg Tablet) 50 mg PO DAILY MRX1 PRN PRN Reason: Migraine Headache Last Admin: 08/22/23 03:37 Dose: 50 mg Thiamine HCl (Thiamine Hcl 100 Mg Tablet) 100 mg PO DAILY [facility] Last Admin: 08/23/23 08:43 Dose: 100 mg Tramadol HCl (Tramadol Hcl 50 Mg Tablet) 50 mg PO Q4H PRN PRN Reason: Pain, Moderate(Pain Scale 4-6) Last Admin: 08/23/23 06:11 Dose: 50 mg Trazodone HCl (Trazodone Hcl 50 Mg Tablet) 50 mg PO BEDTIME MRX1 PRN PRN Reason: Insomnia Last Admin: 08/22/23 22:33 Dose: 50 mg Allergies Allergies Allergy/AdvReac Type Severity Reaction Status Date / Time Sulfa (Sulfonamide Allergy Severe ANAPHYLAXIS Unverified 11/11/19 17:55 Antibiotics) [SULFA (SULFONAMIDE ANTIBIOTICS)] Assessment & Plan Assessment & Plan (1) Alcohol abuse with alcohol-induced mental disorder: Status: Acute Code(s): F10.188 - Alcohol abuse with other alcohol-induced disorder Plan The patient is a 78-year-old male with a past history of alcohol use disorder who was brought to the emergency room of another hospital for psychotic symptoms at the this moment currently denies. 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 Plan 1. Gather collateral information. We will try to contact his family and start working on proper diagnosis and treatment plan. 2. Continue with medications as prescribed. 3. We will continue with medical workout. 4. MRI without contrast done that showed no destruction of pulmonary by this. 5. 15 minute checks since the patient is able to contract for safety.. 6. Start Namenda 5 mg p.o. b.i.d. to target cognitive impairment due to dementia. 7. Even though that his dementia is advanced, we will start Aricept 5 mg p.o. q.h.s. in combination with Namenda since it can help on diminishing the progression of his cognitive impairment. On March 05 we increased Aricept to 10 mg p.o. q.h.s. the plan is to increase over the weekend to Namenda 10 mg p.o. b.i.d. 8. Waiting for placement. 9. Seroquel 25 mg p.o. at 17:00 to avoid . 10. Increase Seroquel up 12.5 p.o. b.i.d. on August 17. 11. Start tramadol p.r.n. [id number] pain on August 20. 12. On August 22 we are adding Seroquel 25 at bedtime. Total dose of Seroquel 75 mg a day Reason for continued inpatient stay Substantial Risk for: inability to function, rapid decompensation and med/psych decompensation Time Spent With Patient Time: Total time managing care of this patient today __20__ minutes.
[2023-08-23] MEDS: QUEtiapine Fumarate 25 MG TABLET PO ×3 (18:13→23:21)
[2023-08-23 19:58] VITALS: BP 130/60; PULSE 90; RESP 16; TEMP 36.5; O2SAT 95
[2023-08-23] MEDS: Donepezil HCl 10 MG TABLET PO (20:39)
[2023-08-23] MEDS: traZODone HCL 50 MG TABLET PO ×2 (20:39→23:21)
[2023-08-23] MEDS: Acetaminophen 325 MG TABLET 650 MG PO (20:40)
[2023-08-24] MEDS: traMADoL HCL 50 MG TABLET PO ×3 (01:59→20:27)
[2023-08-24 08:05] VITALS: BP 120/57; PULSE 78; RESP 18; TEMP 36.6; O2SAT 95
--- NOTE | 2023-08-24 09:22 | HO.PSYCHPN ---
Subjective Subjective Date of Service: 08/24/23 Reason For Visit: Adjustment disorder,w/mixed disturbance of emotion Subjective Notes: Conditional Voluntary Interim History: The nursing staff reported the patient needed trazodone at night he slept only 4 hours. We discussed with the team and we are going to increase the Seroquel up to 50 mg p.o. q.h.s. to target insomnia and restlessness. On interview the patient remains pleasantly confused, waiting for placement. Mental Status Exam Mental Status Exam Patient Appearance: Appropriate Patient Orientation: Person and Situation Level of Consciousness: Awake and Appropriate Patient Behavior: Guarded and Passive Mood Description: Withdrawn Affect Description: Constricted Patient Cognition Impaired: Yes Ability to Follow Directions: Good Speech Pattern: Clear Hallucinations: None Delusions: Not Present Thought Process: Distracted and Slowed Thinking Thought Content: positive for [place] and positive for Poverty of Content Judgement: Fair Diagnostics Vital Signs (24Hr): Vital Signs - 24 hr 08/23/23 19:58 Temperature 97.7 F Pulse Rate 90 Respiratory Rate 16 Blood Pressure 130/60 Pulse Oximetry 95 Oxygen Delivery Method Room Air BMI result Body Mass Index 21.4 Labs 07/29/23 08:35 Imaging Radiology Impressions: ITS Impressions Shoulder X-Ray 07/30/23 09:55 IMPRESSION: 1. No metallic foreign body. 2. Calcification adjacent to the humeral head likely on the basis of calcific tendinosis. Orbit X-Ray 07/30/23 11:07 IMPRESSION: 1. No unexpected radiopaque foreign bodies. 2. Clear lungs. 3. Nonobstructive bowel gas pattern. 4. Moderate to large degree of colonic stool burden. Brain MRI 07/30/23 20:40 IMPRESSION: No acute intracranial abnormality. No findings to suggest Wernicke encephalopathy. Medications Medications Current Medications Acetaminophen (Acetaminophen 325 Mg Tablet) 650 mg PO Q6H PRN PRN Reason: Headache/Pain Mild Scale (1-3) Last Admin: 08/23/23 20:40 Dose: 650 mg Al Hydroxide/Mg Hydroxide (Magnesium Hydrox/Alum Hydrox 30 Ml Oral.Susp) 30 ml PO Q6H PRN PRN Reason: Heartburn/Nausea Last Admin: 08/22/23 22:43 Dose: 30 ml Brimonidine Tartrate (Brimonidine Tartrate 0.2% Oph 5 Ml Bottle) 1 drop EYE-BOTH TID [place] Last Admin: 08/23/23 20:42 Dose: 1 drop Donepezil HCl (Donepezil Hcl 10 Mg Tablet) 10 mg PO BEDTIME [facility] Last Admin: 08/23/23 20:39 Dose: 10 mg Guaifenesin (Guaifenesin 200 Mg/10 Ml 10 Ml Liquid) 10 ml PO Q6H PRN PRN Reason: Cough Lidocaine (Lidocaine 4 % Patch Adh..Patch) 2 patch TRANSDERMA DAILY PRN; Protocol PRN Reason: bilateral low back pain Last Admin: 08/22/23 01:24 Dose: 2 patch Magnesium Hydroxide (Milk Of Magnesia 30 Ml Oral.Susp) 30 ml PO DAILY PRN PRN Reason: Constipation Last Admin: 08/23/23 08:41 Dose: 30 ml Memantine (Memantine Hcl 10 Mg Tablet) 10 mg PO BID [facility] Last Admin: 08/23/23 20:39 Dose: 10 mg Nystatin (Nystatin Powder 15 Gm Bottle) 1 appl TOPICAL BID [place]; Protocol Last Admin: 08/23/23 20:39 Dose: 1 appl Quetiapine Fumarate (Quetiapine Fumarate 25 Mg Tablet) 25 mg PO BID PRN PRN Reason: anxiety/agitation Last Admin: 08/23/23 23:21 Dose: 25 mg Quetiapine Fumarate (Quetiapine Fumarate 25 Mg Tablet) 25 mg PO DAILY@1700 [facility] Last Admin: 08/23/23 18:13 Dose: 25 mg Quetiapine Fumarate (Quetiapine Fumarate 25 Mg Tablet) 12.5 mg PO BID@0830,1330 [facility] Last Admin: 08/23/23 13:04 Dose: 12.5 mg Quetiapine Fumarate (Quetiapine Fumarate 50 Mg Tablet) 50 mg PO BEDTIME [facility] Sumatriptan Succinate (Sumatriptan Succinate 50 Mg Tablet) 50 mg PO DAILY MRX1 PRN PRN Reason: Migraine Headache Last Admin: 08/22/23 03:37 Dose: 50 mg Thiamine HCl (Thiamine Hcl 100 Mg Tablet) 100 mg PO DAILY [facility] Last Admin: 08/23/23 08:43 Dose: 100 mg Tramadol HCl (Tramadol Hcl 50 Mg Tablet) 50 mg PO Q4H PRN PRN Reason: Pain, Moderate(Pain Scale 4-6) Last Admin: 08/24/23 01:59 Dose: 50 mg Trazodone HCl (Trazodone Hcl 50 Mg Tablet) 50 mg PO BEDTIME MRX1 PRN PRN Reason: Insomnia Last Admin: 08/23/23 23:21 Dose: 50 mg Allergies Allergies Allergy/AdvReac Type Severity Reaction Status Date / Time Sulfa (Sulfonamide Allergy Severe ANAPHYLAXIS Unverified 11/11/19 17:55 Antibiotics) [SULFA (SULFONAMIDE ANTIBIOTICS)] Assessment & Plan Assessment & Plan (1) Alcohol abuse with alcohol-induced mental disorder: Status: Acute Code(s): F10.188 - Alcohol abuse with other alcohol-induced disorder Plan The patient is a 78-year-old male with a past history of alcohol use disorder who was brought to the emergency room of another hospital for psychotic symptoms at the this moment currently denies. 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 Plan 1. Gather collateral information. We will try to contact his family and start working on proper diagnosis and treatment plan. 2. Continue with medications as prescribed. 3. We will continue with medical workout. 4. MRI without contrast done that showed no destruction of pulmonary by this. 5. 15 minute checks since the patient is able to contract for safety.. 6. Start Namenda 5 mg p.o. b.i.d. to target cognitive impairment due to dementia. 7. Even though that his dementia is advanced, we will start Aricept 5 mg p.o. q.h.s. in combination with Namenda since it can help on diminishing the progression of his cognitive impairment. On March 05 we increased Aricept to 10 mg p.o. q.h.s. the plan is to increase over the weekend to Namenda 10 mg p.o. b.i.d. 8. Waiting for placement. 9. Seroquel 25 mg p.o. at 17:00 to avoid . 10. Increase Seroquel up 12.5 p.o. b.i.d. on August 17. 11. Start tramadol p.r.n. [id number] pain on August 20. 12. On August 22 we are adding Seroquel 25 at bedtime. Total dose of Seroquel 75 mg a day Reason for continued inpatient stay Substantial Risk for: inability to function, rapid decompensation and med/psych decompensation Time Spent With Patient Time: Total time managing care of this patient today __20__ minutes.
[2023-08-24] MEDS: QUEtiapine Fumarate 25 MG TABLET 12.5 MG PO ×2 (09:25→14:03)
[2023-08-24] MEDS: Thiamine HCL 100 MG TABLET PO (09:25)
[2023-08-24] MEDS: Memantine HCl 10 MG TABLET PO ×2 (09:26→20:27)
[2023-08-24] MEDS: Brimonidine Tartrate 0.2% Oph 5 ML BOTTLE 1 DROP EYE-BOTH ×3 (09:27→20:29)
[2023-08-24] MEDS: Acetaminophen 325 MG TABLET 650 MG PO (14:07)
[2023-08-24] MEDS: QUEtiapine Fumarate 25 MG TABLET PO (16:51)
[2023-08-24 20:00] VITALS: BP 137/64; PULSE 82; RESP 16; TEMP 37.2; O2SAT 95
[2023-08-24] MEDS: Donepezil HCl 10 MG TABLET PO (20:27)
[2023-08-24] MEDS: QUEtiapine Fumarate 50 MG TABLET PO (20:27)
[2023-08-25] MEDS: traMADoL HCL 50 MG TABLET PO (02:26)
[2023-08-25] MEDS: Lidocaine 4 % Patch ADH..PATCH 2 PATCH TRANSDERMA (03:36)
[2023-08-25] MEDS: Acetaminophen 325 MG TABLET 650 MG PO (06:03)
[2023-08-25 08:00] VITALS: BP 114/55; PULSE 70; RESP 18; TEMP 36.3; O2SAT 95
[2023-08-25] MEDS: Memantine HCl 10 MG TABLET PO ×2 (09:05→22:05)
[2023-08-25] MEDS: QUEtiapine Fumarate 25 MG TABLET 12.5 MG PO ×2 (09:05→13:57)
[2023-08-25] MEDS: Thiamine HCL 100 MG TABLET PO (09:05)
[2023-08-25] MEDS: Brimonidine Tartrate 0.2% Oph 5 ML BOTTLE 1 DROP EYE-BOTH ×3 (09:33→22:04)
--- NOTE | 2023-08-25 14:17 | P.PNPSI_ITS ---
Subjective Subjective Date of Service: 08/25/23 Reason For Visit: Adjustment disorder,w/mixed disturbance of emotion Subjective Notes: Conditional Voluntary Interim History: The nursing staff reported the patient took p.r.n. Tylenol. He had already had swelling. On interview the patient denies new symptoms besides left hand edema that looks cellulitis. Mental Status Exam Mental Status Exam Patient Appearance: Appropriate Patient Orientation: Person and Situation Level of Consciousness: Awake and Appropriate Patient Behavior: Guarded and Passive Mood Description: Withdrawn Affect Description: Blunted Patient Cognition Impaired: Yes Ability to Follow Directions: Good Speech Pattern: Clear Hallucinations: None Delusions: Not Present Thought Process: Distracted and Slowed Thinking Thought Content: positive for [place] and positive for Poverty of Content Judgement: Fair Diagnostics Vital Signs (24Hr): Vital Signs - 24 hr 08/24/23 20:00 08/25/23 08:00 Temperature 98.9 F 97.3 F Pulse Rate 82 70 Respiratory Rate 16 18 Blood Pressure 137/64 114/55 L Pulse Oximetry 95 95 Oxygen Delivery Method Room Air Room Air BMI result Body Mass Index 21.4 Labs 07/29/23 08:35 Imaging Radiology Impressions: ITS Impressions Shoulder X-Ray 07/30/23 09:55 IMPRESSION: 1. No metallic foreign body. 2. Calcification adjacent to the humeral head likely on the basis of calcific tendinosis. Orbit X-Ray 07/30/23 11:07 IMPRESSION: 1. No unexpected radiopaque foreign bodies. 2. Clear lungs. 3. Nonobstructive bowel gas pattern. 4. Moderate to large degree of colonic stool burden. Brain MRI 07/30/23 20:40 IMPRESSION: No acute intracranial abnormality. No findings to suggest Wernicke encephalopathy. Medications Medications Current Medications Acetaminophen (Acetaminophen 325 Mg Tablet) 650 mg PO Q6H PRN PRN Reason: Headache/Pain Mild Scale (1-3) Last Admin: 08/25/23 06:03 Dose: 650 mg Al Hydroxide/Mg Hydroxide (Magnesium Hydrox/Alum Hydrox 30 Ml Oral.Susp) 30 ml PO Q6H PRN PRN Reason: Heartburn/Nausea Last Admin: 08/22/23 22:43 Dose: 30 ml Brimonidine Tartrate (Brimonidine Tartrate 0.2% Oph 5 Ml Bottle) 1 drop EYE- BOTH TID [place] Last Admin: 08/25/23 14:00 Dose: 1 drop Donepezil HCl (Donepezil Hcl 10 Mg Tablet) 10 mg PO BEDTIME [facility] Last Admin: 08/24/23 20:27 Dose: 10 mg Guaifenesin (Guaifenesin 200 Mg/10 Ml 10 Ml Liquid) 10 ml PO Q6H PRN PRN Reason: Cough Lidocaine (Lidocaine 4 % Patch Adh..Patch) 2 patch TRANSDERMA DAILY PRN; Protocol PRN Reason: bilateral low back pain Last Admin: 08/25/23 03:36 Dose: 2 patch Magnesium Hydroxide (Milk Of Magnesia 30 Ml Oral.Susp) 30 ml PO DAILY PRN PRN Reason: Constipation Last Admin: 08/23/23 08:41 Dose: 30 ml Memantine (Memantine Hcl 10 Mg Tablet) 10 mg PO BID [facility] Last Admin: 08/25/23 09:05 Dose: 10 mg Nystatin (Nystatin Powder 15 Gm Bottle) 1 appl TOPICAL BID [facility]; Protocol Last Admin: 08/25/23 10:13 Dose: Not Given Quetiapine Fumarate (Quetiapine Fumarate 25 Mg Tablet) 25 mg PO BID PRN PRN Reason: anxiety/agitation Last Admin: 08/23/23 23:21 Dose: 25 mg Quetiapine Fumarate (Quetiapine Fumarate 25 Mg Tablet) 25 mg PO DAILY@1700 [facility] Last Admin: 08/24/23 16:51 Dose: 25 mg Quetiapine Fumarate (Quetiapine Fumarate 25 Mg Tablet) 12.5 mg PO BID@0830,1330 [facility] Last Admin: 08/25/23 13:57 Dose: 12.5 mg Quetiapine Fumarate (Quetiapine Fumarate 50 Mg Tablet) 50 mg PO BEDTIME [facility] Last Admin: 08/24/23 20:27 Dose: 50 mg Sumatriptan Succinate (Sumatriptan Succinate 50 Mg Tablet) 50 mg PO DAILY MRX1 PRN PRN Reason: Migraine Headache Last Admin: 08/22/23 03:37 Dose: 50 mg Thiamine HCl (Thiamine Hcl 100 Mg Tablet) 100 mg PO DAILY [facility] Last Admin: 08/25/23 09:05 Dose: 100 mg Tramadol HCl (Tramadol Hcl 50 Mg Tablet) 50 mg PO Q4H PRN PRN Reason: Pain, Moderate(Pain Scale 4-6) Last Admin: 08/25/23 02:26 Dose: 50 mg Trazodone HCl (Trazodone Hcl 50 Mg Tablet) 50 mg PO BEDTIME MRX1 PRN PRN Reason: Insomnia Last Admin: 08/23/23 23:21 Dose: 50 mg Allergies Allergies Allergy/AdvReac Type Severity Reaction Status Date / Time Sulfa (Sulfonamide Allergy Severe ANAPHYLAXIS Unverified 11/11/19 17:55 Antibiotics) [SULFA (SULFONAMIDE ANTIBIOTICS)] Assessment & Plan Assessment & Plan (1) Alcohol abuse with alcohol-induced mental disorder: Status: Acute Code(s): F10.188 - Alcohol abuse with other alcohol-induced disorder Plan The patient is a 78-year-old male with a past history of alcohol use disorder who was brought to the emergency room of another hospital for psychotic symptoms at the this moment currently denies. 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 Plan 1. Gather collateral information. We will try to contact his family and start working on proper diagnosis and treatment plan. 2. Continue with medications as prescribed. 3. We will continue with medical workout. 4. MRI without contrast done that showed no destruction of pulmonary by this. 5. 15 minute checks since the patient is able to contract for safety.. 6. Start Namenda 5 mg p.o. b.i.d. to target cognitive impairment due to dementia. 7. Even though that his dementia is advanced, we will start Aricept 5 mg p.o. q.h.s. in combination with Namenda since it can help on diminishing the progression of his cognitive impairment. On March 05 we increased Aricept to 10 mg p.o. q.h.s. the plan is to increase over the weekend to Namenda 10 mg p.o. b.i.d. 8. Waiting for placement. 9. Seroquel 25 mg p.o. at 17:00 to avoid . 10. Increase Seroquel up 12.5 p.o. b.i.d. on August 17. 11. Start tramadol p.r.n. [id number] pain on August 20. 12. On August 22 we are adding Seroquel 25 at bedtime. Total dose of Seroquel 75 mg a day Thirteen start Keflex 500 mg p.o. b.i.d. for cellulitis Reason for continued inpatient stay Substantial Risk for: inability to function, rapid decompensation and med/psych decompensation Time Spent With Patient Time: Total time managing care of this patient today _20___ minutes.
[2023-08-25] MEDS: cephALEXin 500 MG CAPSULE PO (14:37)
--- NOTE | 2023-08-25 14:39 | PC.NURSE ---
Left hand with increased redness and warmth. New orders obtained for Keflex 500mg PO every 12 hours. First dose given to patient at 1438 today. Patient educated about medication.
[2023-08-25] MEDS: QUEtiapine Fumarate 25 MG TABLET PO (16:26)
[2023-08-25 20:00] VITALS: BP 147/71; PULSE 96; RESP 16; TEMP 37.3; O2SAT 97
[2023-08-25] MEDS: Nystatin Powder 15 GM BOTTLE 1 APPL TOPICAL (22:04)
[2023-08-25] MEDS: Donepezil HCl 10 MG TABLET PO (22:05)
[2023-08-25] MEDS: traZODone HCL 50 MG TABLET PO (22:05)
[2023-08-25] MEDS: QUEtiapine Fumarate 50 MG TABLET PO (22:05)
[2023-08-26] MEDS: traZODone HCL 50 MG TABLET PO ×2 (02:05→20:56)
[2023-08-26] MEDS: traMADoL HCL 50 MG TABLET PO ×3 (02:05→18:17)
[2023-08-26] MEDS: cephALEXin 500 MG CAPSULE PO ×2 (02:05→13:30)
[2023-08-26] MEDS: QUEtiapine Fumarate 25 MG TABLET PO ×3 (02:06→20:56)
[2023-08-26] MEDS: Acetaminophen 325 MG TABLET 650 MG PO ×2 (06:10→20:55)
[2023-08-26 08:45] VITALS: BP 122/56; PULSE 96; RESP 18; TEMP 36.2; O2SAT 96
[2023-08-26] MEDS: Memantine HCl 10 MG TABLET PO ×2 (09:28→20:57)
[2023-08-26] MEDS: QUEtiapine Fumarate 25 MG TABLET 12.5 MG PO ×2 (09:28→13:30)
[2023-08-26] MEDS: Thiamine HCL 100 MG TABLET PO (09:29)
[2023-08-26] MEDS: Brimonidine Tartrate 0.2% Oph 5 ML BOTTLE 1 DROP EYE-BOTH ×3 (09:29→20:57)
--- NOTE | 2023-08-26 11:44 | P.PNPSI_ITS ---
Subjective Subjective Date of Service: 08/26/23 Reason For Visit: Adjustment disorder,w/mixed disturbance of emotion Subjective Notes: Conditional Voluntary Interim History: THE NURSING STAFF REPORTED THE PATIENT HAD BEEN PLEASANTLY CONFUSED COMPLAINING OF PAIN IN HIS HAND. YESTERDAY START HIM ON KEFLEX SINCE IT LOOKS CELLULITIS. X-RAY ORDERED TODAY. Mental Status Exam Mental Status Exam Patient Appearance: Appropriate Patient Orientation: Person and Situation Level of Consciousness: Awake and Appropriate Patient Behavior: Guarded and Passive Mood Description: Withdrawn Affect Description: Constricted Patient Cognition Impaired: Yes Ability to Follow Directions: Good Speech Pattern: Clear Hallucinations: None Delusions: Not Present Thought Process: Distracted and Slowed Thinking Thought Content: positive for [place] and positive for Poverty of Content Judgement: Fair Diagnostics Vital Signs (24Hr): Vital Signs - 24 hr 08/25/23 20:00 08/26/23 08:45 Temperature 99.1 F 97.1 F Pulse Rate 96 96 Respiratory Rate 16 18 Blood Pressure 147/71 H 122/56 L Pulse Oximetry 97 96 Oxygen Delivery Method Room Air Room Air BMI result Body Mass Index 21.4 Labs 07/29/23 08:35 Imaging Radiology Impressions: ITS Impressions Shoulder X-Ray 07/30/23 09:55 IMPRESSION: 1. No metallic foreign body. 2. Calcification adjacent to the humeral head likely on the basis of calcific tendinosis. Orbit X-Ray 07/30/23 11:07 IMPRESSION: 1. No unexpected radiopaque foreign bodies. 2. Clear lungs. 3. Nonobstructive bowel gas pattern. 4. Moderate to large degree of colonic stool burden. Brain MRI 07/30/23 20:40 IMPRESSION: No acute intracranial abnormality. No findings to suggest Wernicke encephalopathy. Hand X-Ray 08/26/23 09:05 IMPRESSION: No fracture seen. Medications Medications Current Medications Acetaminophen (Acetaminophen 325 Mg Tablet) 650 mg PO Q6H PRN PRN Reason: Headache/Pain Mild Scale (1-3) Last Admin: 08/26/23 06:10 Dose: 650 mg Al Hydroxide/Mg Hydroxide (Magnesium Hydrox/Alum Hydrox 30 Ml Oral.Susp) 30 ml PO Q6H PRN PRN Reason: Heartburn/Nausea Last Admin: 08/22/23 22:43 Dose: 30 ml Brimonidine Tartrate (Brimonidine Tartrate 0.2% Oph 5 Ml Bottle) 1 drop EYE- BOTH TID [place] Last Admin: 08/26/23 09:29 Dose: 1 drop Cephalexin HCl (Cephalexin 500 Mg Capsule) 500 mg PO Q12H [facility] Last Admin: 08/26/23 02:05 Dose: 500 mg Donepezil HCl (Donepezil Hcl 10 Mg Tablet) 10 mg PO BEDTIME [facility] Last Admin: 08/25/23 22:05 Dose: 10 mg Guaifenesin (Guaifenesin 200 Mg/10 Ml 10 Ml Liquid) 10 ml PO Q6H PRN PRN Reason: Cough Lidocaine (Lidocaine 4 % Patch Adh..Patch) 2 patch TRANSDERMA DAILY PRN; Protocol PRN Reason: bilateral low back pain Last Admin: 08/25/23 03:36 Dose: 2 patch Magnesium Hydroxide (Milk Of Magnesia 30 Ml Oral.Susp) 30 ml PO DAILY PRN PRN Reason: Constipation Last Admin: 08/23/23 08:41 Dose: 30 ml Memantine (Memantine Hcl 10 Mg Tablet) 10 mg PO BID [facility] Last Admin: 08/26/23 09:28 Dose: 10 mg Nystatin (Nystatin Powder 15 Gm Bottle) 1 appl TOPICAL BID [facility]; Protocol Last Admin: 08/26/23 09:29 Dose: Not Given Quetiapine Fumarate (Quetiapine Fumarate 25 Mg Tablet) 25 mg PO BID PRN PRN Reason: anxiety/agitation Last Admin: 08/26/23 02:06 Dose: 25 mg Quetiapine Fumarate (Quetiapine Fumarate 25 Mg Tablet) 25 mg PO DAILY@1700 [facility] Last Admin: 08/25/23 16:26 Dose: 25 mg Quetiapine Fumarate (Quetiapine Fumarate 25 Mg Tablet) 12.5 mg PO BID@0830,1330 [facility] Last Admin: 08/26/23 09:28 Dose: 12.5 mg Quetiapine Fumarate (Quetiapine Fumarate 50 Mg Tablet) 50 mg PO BEDTIME [facility] Last Admin: 08/25/23 22:05 Dose: 50 mg Sumatriptan Succinate (Sumatriptan Succinate 50 Mg Tablet) 50 mg PO DAILY MRX1 PRN PRN Reason: Migraine Headache Last Admin: 08/22/23 03:37 Dose: 50 mg Thiamine HCl (Thiamine Hcl 100 Mg Tablet) 100 mg PO DAILY [facility] Last Admin: 08/26/23 09:29 Dose: 100 mg Tramadol HCl (Tramadol Hcl 50 Mg Tablet) 50 mg PO Q4H PRN PRN Reason: Pain, Moderate(Pain Scale 4-6) Last Admin: 08/26/23 09:27 Dose: 50 mg Trazodone HCl (Trazodone Hcl 50 Mg Tablet) 50 mg PO BEDTIME MRX1 PRN PRN Reason: Insomnia Last Admin: 08/26/23 02:05 Dose: 50 mg Allergies Allergies Allergy/AdvReac Type Severity Reaction Status Date / Time Sulfa (Sulfonamide Allergy Severe ANAPHYLAXIS Verified 08/25/23 23:13 Antibiotics) [SULFA (SULFONAMIDE ANTIBIOTICS)] mold Allergy Intermediate Shortness Verified 08/25/23 22:42 of Breath Assessment & Plan Assessment & Plan (1) Alcohol abuse with alcohol-induced mental disorder: Status: Acute Code(s): F10.188 - Alcohol abuse with other alcohol-induced disorder Plan The patient is a 78-year-old male with a past history of alcohol use disorder who was brought to the emergency room of another hospital for psychotic symptoms at the this moment currently denies. 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 Plan 1. Gather collateral information. We will try to contact his family and start working on proper diagnosis and treatment plan. 2. Continue with medications as prescribed. 3. We will continue with medical workout. 4. MRI without contrast done that showed no destruction of pulmonary by this. 5. 15 minute checks since the patient is able to contract for safety.. 6. Start Namenda 5 mg p.o. b.i.d. to target cognitive impairment due to dementia. 7. Even though that his dementia is advanced, we will start Aricept 5 mg p.o. q.h.s. in combination with Namenda since it can help on diminishing the progression of his cognitive impairment. On March 05 we increased Aricept to 10 mg p.o. q.h.s. the plan is to increase over the weekend to Namenda 10 mg p.o. b.i.d. 8. Waiting for placement. 9. Seroquel 25 mg p.o. at 17:00 to avoid ing. 10. Increase Seroquel up 12.5 p.o. b.i.d. on August 17. 11. Start tramadol p.r.n. [id number] pain on August 20. 12. On August 22 we are adding Seroquel 25 at bedtime. Total dose of Seroquel 75 mg a day 13. start Keflex 500 mg p.o. b.i.d. for cellulitis Reason for continued inpatient stay Substantial Risk for: inability to function, rapid decompensation and med/psych decompensation Time Spent With Patient Time: Total time managing care of this patient today __20__ minutes.
--- NOTE | 2023-08-26 14:51 | PC.NURSE ---
No fracture seen in the left hand x ray completed today.
[2023-08-26 20:00] VITALS: BP 125/65; PULSE 79; RESP 16; TEMP 36.9; O2SAT 92
[2023-08-26] MEDS: Donepezil HCl 10 MG TABLET PO (20:56)
[2023-08-26] MEDS: QUEtiapine Fumarate 50 MG TABLET PO (20:56)
[2023-08-26] MEDS: Nystatin Powder 15 GM BOTTLE 1 APPL TOPICAL (20:57)
[2023-08-27] MEDS: cephALEXin 500 MG CAPSULE PO ×2 (02:01→14:02)
[2023-08-27] MEDS: guaiFENesin 200 MG/10 ML 10 ML LIQUID PO (02:01)
[2023-08-27] MEDS: traZODone HCL 50 MG TABLET PO (02:01)
[2023-08-27 08:20] VITALS: BP 139/68; PULSE 75; RESP 16; TEMP 36.6; O2SAT 95
[2023-08-27] MEDS: Thiamine HCL 100 MG TABLET PO (08:42)
[2023-08-27] MEDS: Memantine HCl 10 MG TABLET PO ×2 (08:42→20:17)
[2023-08-27] MEDS: QUEtiapine Fumarate 25 MG TABLET 12.5 MG PO ×2 (08:42→14:02)
[2023-08-27] MEDS: Brimonidine Tartrate 0.2% Oph 5 ML BOTTLE 1 DROP EYE-BOTH ×3 (08:42→20:17)
[2023-08-27] MEDS: traMADoL HCL 50 MG TABLET PO (08:49)
--- NOTE | 2023-08-27 13:38 | P.PNPSI_ITS ---
Subjective Subjective Date of Service: 08/27/23 Reason For Visit: Adjustment disorder,w/mixed disturbance of emotion Subjective Notes: Conditional Voluntary Interim History: THE NURSING STAFF REPORTED THE PATIENT HAD BEEN COMPLIANT WITH TREATMENT, HE COMPLAINS OF PAIN IN HIS HAND CURRENTLY ON KEFLEX. HE SLEPT WELL 7 HOURS. ON INTERVIEW THE PATIENT DENIES NEW SYMPTOMS, WAITING for placement. Mental Status Exam Mental Status Exam Patient Appearance: Appropriate Patient Orientation: Person and Situation Level of Consciousness: Awake and Appropriate Patient Behavior: Guarded and Passive Mood Description: Calm Affect Description: Constricted Patient Cognition Impaired: Yes Ability to Follow Directions: Good Speech Pattern: Clear Hallucinations: None Delusions: Not Present Thought Process: Distracted and Slowed Thinking Thought Content: positive for [place] and positive for Poverty of Content Judgement: Fair Diagnostics Vital Signs (24Hr): Vital Signs - 24 hr 08/26/23 20:00 08/27/23 08:20 Temperature 98.4 F 97.8 F Pulse Rate 79 75 Respiratory Rate 16 16 Blood Pressure 125/65 139/68 Pulse Oximetry 92 95 Oxygen Delivery Method Room Air Room Air BMI result Body Mass Index 21.4 Labs 07/29/23 08:35 Imaging Radiology Impressions: ITS Impressions Shoulder X-Ray 07/30/23 09:55 IMPRESSION: 1. No metallic foreign body. 2. Calcification adjacent to the humeral head likely on the basis of calcific tendinosis. Orbit X-Ray 07/30/23 11:07 IMPRESSION: 1. No unexpected radiopaque foreign bodies. 2. Clear lungs. 3. Nonobstructive bowel gas pattern. 4. Moderate to large degree of colonic stool burden. Brain MRI 07/30/23 20:40 IMPRESSION: No acute intracranial abnormality. No findings to suggest Wernicke encephalopathy. Hand X-Ray 08/26/23 09:05 IMPRESSION: No fracture seen. Medications Medications Current Medications Acetaminophen (Acetaminophen 325 Mg Tablet) 650 mg PO Q6H PRN PRN Reason: Headache/Pain Mild Scale (1-3) Last Admin: 08/26/23 20:55 Dose: 650 mg Al Hydroxide/Mg Hydroxide (Magnesium Hydrox/Alum Hydrox 30 Ml Oral.Susp) 30 ml PO Q6H PRN PRN Reason: Heartburn/Nausea Last Admin: 08/22/23 22:43 Dose: 30 ml Brimonidine Tartrate (Brimonidine Tartrate 0.2% Oph 5 Ml Bottle) 1 drop EYE- BOTH TID [facility] Last Admin: 08/27/23 08:42 Dose: 1 drop Cephalexin HCl (Cephalexin 500 Mg Capsule) 500 mg PO Q12H [facility] Last Admin: 08/27/23 02:01 Dose: 500 mg Donepezil HCl (Donepezil Hcl 10 Mg Tablet) 10 mg PO BEDTIME [facility] Last Admin: 08/26/23 20:56 Dose: 10 mg Guaifenesin (Guaifenesin 200 Mg/10 Ml 10 Ml Liquid) 10 ml PO Q6H PRN PRN Reason: Cough Last Admin: 08/27/23 02:01 Dose: 10 ml Lidocaine (Lidocaine 4 % Patch Adh..Patch) 2 patch TRANSDERMA DAILY PRN; Protocol PRN Reason: bilateral low back pain Last Admin: 08/25/23 03:36 Dose: 2 patch Magnesium Hydroxide (Milk Of Magnesia 30 Ml Oral.Susp) 30 ml PO DAILY PRN PRN Reason: Constipation Last Admin: 08/23/23 08:41 Dose: 30 ml Memantine (Memantine Hcl 10 Mg Tablet) 10 mg PO BID [facility] Last Admin: 08/27/23 08:42 Dose: 10 mg Nystatin (Nystatin Powder 15 Gm Bottle) 1 appl TOPICAL BID [facility]; Protocol Last Admin: 08/27/23 08:54 Dose: Not Given Quetiapine Fumarate (Quetiapine Fumarate 25 Mg Tablet) 25 mg PO BID PRN PRN Reason: anxiety/agitation Last Admin: 08/26/23 20:56 Dose: 25 mg Quetiapine Fumarate (Quetiapine Fumarate 25 Mg Tablet) 25 mg PO DAILY@1700 [facility] Last Admin: 08/26/23 16:24 Dose: 25 mg Quetiapine Fumarate (Quetiapine Fumarate 25 Mg Tablet) 12.5 mg PO BID@0830,1330 [facility] Last Admin: 08/27/23 08:42 Dose: 12.5 mg Quetiapine Fumarate (Quetiapine Fumarate 50 Mg Tablet) 50 mg PO BEDTIME [facility] Last Admin: 08/26/23 20:56 Dose: 50 mg Sumatriptan Succinate (Sumatriptan Succinate 50 Mg Tablet) 50 mg PO DAILY MRX1 PRN PRN Reason: Migraine Headache Last Admin: 08/22/23 03:37 Dose: 50 mg Thiamine HCl (Thiamine Hcl 100 Mg Tablet) 100 mg PO DAILY [facility] Last Admin: 08/27/23 08:42 Dose: 100 mg Tramadol HCl (Tramadol Hcl 50 Mg Tablet) 50 mg PO Q4H PRN PRN Reason: Pain, Moderate(Pain Scale 4-6) Last Admin: 08/27/23 08:49 Dose: 50 mg Trazodone HCl (Trazodone Hcl 50 Mg Tablet) 50 mg PO BEDTIME MRX1 PRN PRN Reason: Insomnia Last Admin: 08/27/23 02:01 Dose: 50 mg Allergies Allergies Allergy/AdvReac Type Severity Reaction Status Date / Time Sulfa (Sulfonamide Allergy Severe ANAPHYLAXIS Verified 08/25/23 23:13 Antibiotics) [SULFA (SULFONAMIDE ANTIBIOTICS)] mold Allergy Intermediate Shortness Verified 08/25/23 22:42 of Breath Assessment & Plan Assessment & Plan (1) Alcohol abuse with alcohol-induced mental disorder: Status: Acute Code(s): F10.188 - Alcohol abuse with other alcohol-induced disorder Plan The patient is a 78-year-old male with a past history of alcohol use disorder who was brought to the emergency room of another hospital for psychotic symptoms at the this moment currently denies. 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 Plan 1. Gather collateral information. We will try to contact his family and start working on proper diagnosis and treatment plan. 2. Continue with medications as prescribed. 3. We will continue with medical workout. 4. MRI without contrast done that showed no destruction of pulmonary by this. 5. 15 minute checks since the patient is able to contract for safety.. 6. Start Namenda 5 mg p.o. b.i.d. to target cognitive impairment due to dementia. 7. Even though that his dementia is advanced, we will start Aricept 5 mg p.o. q.h.s. in combination with Namenda since it can help on diminishing the progression of his cognitive impairment. On March 05 we increased Aricept to 10 mg p.o. q.h.s. the plan is to increase over the weekend to Namenda 10 mg p.o. b.i.d. 8. Waiting for placement. 9. Seroquel 25 mg p.o. at 17:00 to avoid ing. 10. Increase Seroquel up 12.5 p.o. b.i.d. on [place] 24. 11. Start tramadol p.r.n. [id number] pain on August 20. On August 22 we are adding Seroquel 25 at bedtime. Total dose of Seroquel 75 mg a day 13. start Keflex 500 mg p.o. b.i.d. for cellulitis Reason for continued inpatient stay Substantial Risk for: inability to function, rapid decompensation and med/psych decompensation Time Spent With Patient Time: Total time managing care of this patient today ____ minutes.
[2023-08-27] MEDS: QUEtiapine Fumarate 25 MG TABLET PO (17:08)
[2023-08-27 20:00] VITALS: BP 144/70; PULSE 87; RESP 18; TEMP 36.5; O2SAT 97
[2023-08-27] MEDS: QUEtiapine Fumarate 50 MG TABLET PO (20:17)
[2023-08-27] MEDS: Nystatin Powder 15 GM BOTTLE 1 APPL TOPICAL (20:17)
[2023-08-27] MEDS: Donepezil HCl 10 MG TABLET PO (20:17)
[2023-08-28] MEDS: cephALEXin 500 MG CAPSULE PO ×2 (02:30→14:03)
[2023-08-28] MEDS: traMADoL HCL 50 MG TABLET PO ×2 (02:35→08:26)
[2023-08-28] MEDS: Lidocaine 4 % Patch ADH..PATCH 2 PATCH TRANSDERMA (02:47)
[2023-08-28 07:00] VITALS: BMI 21.7
[2023-08-28 07:54] VITALS: BP 139/65; PULSE 73; RESP 18; TEMP 36.6; O2SAT 98
[2023-08-28] MEDS: Thiamine HCL 100 MG TABLET PO (08:25)
[2023-08-28] MEDS: Memantine HCl 10 MG TABLET PO ×2 (08:25→20:32)
[2023-08-28] MEDS: QUEtiapine Fumarate 25 MG TABLET 12.5 MG PO ×2 (08:26→14:03)
[2023-08-28] MEDS: Brimonidine Tartrate 0.2% Oph 5 ML BOTTLE 1 DROP EYE-BOTH ×3 (08:26→20:32)
--- NOTE | 2023-08-28 11:41 | HO.PSYCHPN ---
Subjective Subjective Date of Service: 08/28/23 Reason For Visit: Adjustment disorder,w/mixed disturbance of emotion Interim History: nursing staff report pt is compliant with treatment; no changes; left hand has cellulitis - pt on keflex. alert and oriented x1 . pt sleeping well. no new symptoms reported. Medication Compliance: Yes Side effects from medications: No Attending Groups: No Review of Systems Acute medical concerns: No Review of Systems Review of Systems General: No fevers, malaise, unintentional weight loss HEENT: No blurred vision, diplopia. No sore throat, nasal congestion, rhinorrhea, sinus pain, ear pain Cardiovascular: No chest pain, palpitations, or leg edema Respiratory: No shortness of breath, wheezing. +cough GI: No abdominal pain, nausea, vomiting, diarrhea, constipation, melena, hematochezia : No dysuria, hematuria, increased urinary frequency, decreased urinary output MSK: No myalgia. +back pain Neuro: No headaches, weakness, paresthesias Skin: No rashes or lesions Yes all other systems are reviewed and are negative Mental Status Exam Mental Status Exam Patient Appearance: Appropriate Patient Orientation: Person and Situation Level of Consciousness: Awake and Appropriate Patient Behavior: Guarded and Passive Mood Description: Calm Affect Description: Constricted Patient Cognition Impaired: Yes Ability to Follow Directions: Good Speech Pattern: Clear Judgement: Fair Diagnostics Vital Signs (24Hr): Vital Signs - 24 hr 08/27/23 20:00 08/28/23 07:54 Temperature 97.7 F 97.9 F Pulse Rate 87 73 Respiratory Rate 18 18 Blood Pressure 144/70 H 139/65 Pulse Oximetry 97 98 Oxygen Delivery Method Room Air Room Air BMI result Body Mass Index 21.4 Labs 07/29/23 08:35 Imaging Radiology Impressions: ITS Impressions Shoulder X-Ray 07/30/23 09:55 IMPRESSION: 1. No metallic foreign body. 2. Calcification adjacent to the humeral head likely on the basis of calcific tendinosis. Orbit X-Ray 07/30/23 11:07 IMPRESSION: 1. No unexpected radiopaque foreign bodies. 2. Clear lungs. 3. Nonobstructive bowel gas pattern. 4. Moderate to large degree of colonic stool burden. Brain MRI 07/30/23 20:40 IMPRESSION: No acute intracranial abnormality. No findings to suggest Wernicke encephalopathy. Hand X-Ray 08/26/23 09:05 IMPRESSION: No fracture seen. Medications Medications Current Medications Acetaminophen (Acetaminophen 325 Mg Tablet) 650 mg PO Q6H PRN PRN Reason: Headache/Pain Mild Scale (1-3) Last Admin: 08/26/23 20:55 Dose: 650 mg Al Hydroxide/Mg Hydroxide (Magnesium Hydrox/Alum Hydrox 30 Ml Oral.Susp) 30 ml PO Q6H PRN PRN Reason: Heartburn/Nausea Last Admin: 08/22/23 22:43 Dose: 30 ml Brimonidine Tartrate (Brimonidine Tartrate 0.2% Oph 5 Ml Bottle) 1 drop EYE-BOTH TID [facility] Last Admin: 08/28/23 08:26 Dose: 1 drop Cephalexin HCl (Cephalexin 500 Mg Capsule) 500 mg PO Q12H [facility] Last Admin: 08/28/23 02:30 Dose: 500 mg Donepezil HCl (Donepezil Hcl 10 Mg Tablet) 10 mg PO BEDTIME [facility] Last Admin: 08/27/23 20:17 Dose: 10 mg Guaifenesin (Guaifenesin 200 Mg/10 Ml 10 Ml Liquid) 10 ml PO Q6H PRN PRN Reason: Cough Last Admin: 08/27/23 02:01 Dose: 10 ml Lidocaine (Lidocaine 4 % Patch Adh..Patch) 2 patch TRANSDERMA DAILY PRN; Protocol PRN Reason: bilateral low back pain Last Admin: 08/28/23 02:47 Dose: 1 patch Magnesium Hydroxide (Milk Of Magnesia 30 Ml Oral.Susp) 30 ml PO DAILY PRN PRN Reason: Constipation Last Admin: 08/23/23 08:41 Dose: 30 ml Memantine (Memantine Hcl 10 Mg Tablet) 10 mg PO BID [facility] Last Admin: 08/28/23 08:25 Dose: 10 mg Nystatin (Nystatin Powder 15 Gm Bottle) 1 appl TOPICAL BID [facility]; Protocol Last Admin: 08/28/23 08:28 Dose: Not Given Quetiapine Fumarate (Quetiapine Fumarate 25 Mg Tablet) 25 mg PO BID PRN PRN Reason: anxiety/agitation Last Admin: 08/26/23 20:56 Dose: 25 mg Quetiapine Fumarate (Quetiapine Fumarate 25 Mg Tablet) 25 mg PO DAILY@1700 [facility] Last Admin: 08/27/23 17:08 Dose: 25 mg Quetiapine Fumarate (Quetiapine Fumarate 25 Mg Tablet) 12.5 mg PO BID@0830,1330 [facility] Last Admin: 08/28/23 08:26 Dose: 12.5 mg Quetiapine Fumarate (Quetiapine Fumarate 50 Mg Tablet) 50 mg PO BEDTIME [facility] Last Admin: 08/27/23 20:17 Dose: 50 mg Sumatriptan Succinate (Sumatriptan Succinate 50 Mg Tablet) 50 mg PO DAILY MRX1 PRN PRN Reason: Migraine Headache Last Admin: 08/22/23 03:37 Dose: 50 mg Thiamine HCl (Thiamine Hcl 100 Mg Tablet) 100 mg PO DAILY [facility] Last Admin: 08/28/23 08:25 Dose: 100 mg Tramadol HCl (Tramadol Hcl 50 Mg Tablet) 50 mg PO Q4H PRN PRN Reason: Pain, Moderate(Pain Scale 4-6) Last Admin: 08/28/23 08:26 Dose: 50 mg Trazodone HCl (Trazodone Hcl 50 Mg Tablet) 50 mg PO BEDTIME MRX1 PRN PRN Reason: Insomnia Last Admin: 08/27/23 02:01 Dose: 50 mg Allergies Allergies Allergy/AdvReac Type Severity Reaction Status Date / Time Sulfa (Sulfonamide Allergy Severe ANAPHYLAXIS Verified 08/25/23 23:13 Antibiotics) [SULFA (SULFONAMIDE ANTIBIOTICS)] mold Allergy Intermediate Shortness Verified 08/25/23 22:42 of Breath Assessment & Plan Assessment & Plan (1) Alcohol abuse with alcohol-induced mental disorder: Status: Acute Code(s): F10.188 - Alcohol abuse with other alcohol-induced disorder Plan The patient is a 78-year-old male with a past history of alcohol use disorder who was brought to the emergency room of another hospital for psychotic symptoms at the this moment currently denies. 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 Plan 1. Gather collateral information. We will try to contact his family and start working on proper diagnosis and treatment plan. 2. Continue with medications as prescribed. 3. We will continue with medical workout. 4. MRI without contrast done that showed no destruction of pulmonary by this. 5. 15 minute checks since the patient is able to contract for safety.. 6. Start Namenda 5 mg p.o. b.i.d. to target cognitive impairment due to dementia. 7. Even though that his dementia is advanced, we will start Aricept 5 mg p.o. q.h.s. in combination with Namenda since it can help on diminishing the progression of his cognitive impairment. On March 05 we increased Aricept to 10 mg p.o. q.h.s. the plan is to increase over the weekend to Namenda 10 mg p.o. b.i.d. 8. Waiting for placement. 9. Seroquel 25 mg p.o. at 17:00 to avoid ing. 10. Increase Seroquel up 12.5 p.o. b.i.d. on August 17. 11. Start tramadol p.r.n. [id number] pain on August 20. 12. On August 22 we are adding Seroquel 25 at bedtime. Total dose of Seroquel 75 mg a day 13. start Keflex 500 mg p.o. b.i.d. for cellulitis 08/27 continue tx plan Reason for continued inpatient stay Substantial Risk for: inability to function Time Spent With Patient Time: Total time managing care of this patient today ____ minutes.
[2023-08-28] MEDS: QUEtiapine Fumarate 25 MG TABLET PO (17:07)
[2023-08-28 20:00] VITALS: BP 153/72; PULSE 80; RESP 18; TEMP 36.9; O2SAT 97
[2023-08-28] MEDS: QUEtiapine Fumarate 50 MG TABLET PO (20:32)
[2023-08-28] MEDS: traZODone HCL 50 MG TABLET PO (20:32)
[2023-08-28] MEDS: Donepezil HCl 10 MG TABLET PO (20:32)
[2023-08-28] MEDS: Acetaminophen 325 MG TABLET 650 MG PO (20:32)
[2023-08-28] MEDS: Nystatin Powder 15 GM BOTTLE 1 APPL TOPICAL (20:33)
[2023-08-29] MEDS: cephALEXin 500 MG CAPSULE PO ×2 (02:20→14:29)
[2023-08-29 08:00] VITALS: BP 144/65; PULSE 81; RESP 18; TEMP 36.8; O2SAT 97
[2023-08-29] MEDS: Memantine HCl 10 MG TABLET PO ×2 (08:35→20:27)
[2023-08-29] MEDS: QUEtiapine Fumarate 25 MG TABLET 12.5 MG PO ×2 (08:35→13:14)
[2023-08-29] MEDS: Thiamine HCL 100 MG TABLET PO (08:35)
[2023-08-29] MEDS: Acetaminophen 325 MG TABLET 650 MG PO ×2 (08:36→17:41)
[2023-08-29] MEDS: Brimonidine Tartrate 0.2% Oph 5 ML BOTTLE 1 DROP EYE-BOTH ×3 (08:39→20:27)
[2023-08-29] MEDS: Nystatin Powder 15 GM BOTTLE 1 APPL TOPICAL (08:39)
--- NOTE | 2023-08-29 10:07 | P.PNPSI_ITS ---
Subjective Subjective Date of Service: 08/29/23 Reason For Visit: Adjustment disorder,w/mixed disturbance of emotion Subjective Notes: Conditional Voluntary Interim History: Pt slept through the night. He reports he is okay. He explains that he would rather not be here, but otherwise okay. When asked about plan after discharge, he states I haven't thought about it, I will when the time comes. He denies SI/HI. no overt psychosis or delusions. pleasant. taking meds. no behavioral concerns. Review of Systems Review of Systems General: No fevers, malaise, unintentional weight loss HEENT: No blurred vision, diplopia. No sore throat, nasal congestion, rhinorrhea, sinus pain, ear pain Cardiovascular: No chest pain, palpitations, or leg edema Respiratory: No shortness of breath, wheezing. +cough GI: No abdominal pain, nausea, vomiting, diarrhea, constipation, melena, hematochezia : No dysuria, hematuria, increased urinary frequency, decreased urinary output MSK: No myalgia. +back pain Neuro: No headaches, weakness, paresthesias Skin: No rashes or lesions Yes all other systems are reviewed and are negative Mental Status Exam Mental Status Exam Patient Appearance: Appropriate Patient Orientation: Person and Situation Level of Consciousness: Awake and Appropriate Patient Behavior: Guarded and Passive Mood Description: Calm Affect Description: Constricted Patient Cognition Impaired: Yes Ability to Follow Directions: Good Speech Pattern: Clear Diagnostics Vital Signs (24Hr): Vital Signs - 24 hr 08/28/23 20:00 08/29/23 08:00 Temperature 98.4 F 98.3 F Pulse Rate 80 81 Respiratory Rate 18 18 Blood Pressure 153/72 H 144/65 H Pulse Oximetry 97 97 Oxygen Delivery Method Room Air Room Air BMI result Body Mass Index 21.7 Labs 07/29/23 08:35 Imaging Radiology Impressions: ITS Impressions Shoulder X-Ray 07/30/23 09:55 IMPRESSION: 1. No metallic foreign body. 2. Calcification adjacent to the humeral head likely on the basis of calcific tendinosis. Orbit X-Ray 07/30/23 11:07 IMPRESSION: 1. No unexpected radiopaque foreign bodies. 2. Clear lungs. 3. Nonobstructive bowel gas pattern. 4. Moderate to large degree of colonic stool burden. Brain MRI 07/30/23 20:40 IMPRESSION: No acute intracranial abnormality. No findings to suggest Wernicke encephalopathy. Hand X-Ray 08/26/23 09:05 IMPRESSION: No fracture seen. Medications Medications Current Medications Acetaminophen (Acetaminophen 325 Mg Tablet) 650 mg PO Q6H PRN PRN Reason: Headache/Pain (1-10) Last Admin: 08/29/23 08:36 Dose: 650 mg Al Hydroxide/Mg Hydroxide (Magnesium Hydrox/Alum Hydrox 30 Ml Oral.Susp) 30 ml PO Q6H PRN PRN Reason: Heartburn/Nausea Last Admin: 08/22/23 22:43 Dose: 30 ml Brimonidine Tartrate (Brimonidine Tartrate 0.2% Oph 5 Ml Bottle) 1 drop EYE- BOTH TID [facility] Last Admin: 08/29/23 08:39 Dose: 1 drop Cephalexin HCl (Cephalexin 500 Mg Capsule) 500 mg PO Q12H [facility] Last Admin: 08/29/23 02:20 Dose: 500 mg Donepezil HCl (Donepezil Hcl 10 Mg Tablet) 10 mg PO BEDTIME [facility] Last Admin: 08/28/23 20:32 Dose: 10 mg Guaifenesin (Guaifenesin 200 Mg/10 Ml 10 Ml Liquid) 10 ml PO Q6H PRN PRN Reason: Cough Last Admin: 08/27/23 02:01 Dose: 10 ml Lidocaine (Lidocaine 4 % Patch Adh..Patch) 2 patch TRANSDERMA DAILY PRN; Protocol PRN Reason: bilateral low back pain Last Admin: 08/28/23 02:47 Dose: 1 patch Magnesium Hydroxide (Milk Of Magnesia 30 Ml Oral.Susp) 30 ml PO DAILY PRN PRN Reason: Constipation Last Admin: 08/23/23 08:41 Dose: 30 ml Memantine (Memantine Hcl 10 Mg Tablet) 10 mg PO BID [facility] Last Admin: 08/29/23 08:35 Dose: 10 mg Nystatin (Nystatin Powder 15 Gm Bottle) 1 appl TOPICAL BID [facility]; Protocol Last Admin: 08/29/23 08:39 Dose: 1 appl Quetiapine Fumarate (Quetiapine Fumarate 25 Mg Tablet) 25 mg PO BID PRN PRN Reason: anxiety/agitation Last Admin: 08/26/23 20:56 Dose: 25 mg Quetiapine Fumarate (Quetiapine Fumarate 25 Mg Tablet) 25 mg PO DAILY@1700 [facility] Last Admin: 08/28/23 17:07 Dose: 25 mg Quetiapine Fumarate (Quetiapine Fumarate 25 Mg Tablet) 12.5 mg PO BID@0830,1330 [facility] Last Admin: 08/29/23 08:35 Dose: 12.5 mg Quetiapine Fumarate (Quetiapine Fumarate 50 Mg Tablet) 50 mg PO BEDTIME [facility] Last Admin: 08/28/23 20:32 Dose: 50 mg Sumatriptan Succinate (Sumatriptan Succinate 50 Mg Tablet) 50 mg PO DAILY MRX1 PRN PRN Reason: Migraine Headache Last Admin: 08/22/23 03:37 Dose: 50 mg Thiamine HCl (Thiamine Hcl 100 Mg Tablet) 100 mg PO DAILY [facility] Last Admin: 08/29/23 08:35 Dose: 100 mg Tramadol HCl (Tramadol Hcl 50 Mg Tablet) 50 mg PO Q4H PRN PRN Reason: Pain, Moderate(Pain Scale 4-6) Last Admin: 08/28/23 08:26 Dose: 50 mg Trazodone HCl (Trazodone Hcl 50 Mg Tablet) 50 mg PO BEDTIME MRX1 PRN PRN Reason: Insomnia Last Admin: 08/28/23 20:32 Dose: 50 mg Allergies Allergies Allergy/AdvReac Type Severity Reaction Status Date / Time Sulfa (Sulfonamide Allergy Severe ANAPHYLAXIS Verified 08/25/23 23:13 Antibiotics) [SULFA (SULFONAMIDE ANTIBIOTICS)] mold Allergy Intermediate Shortness Verified 08/25/23 22:42 of Breath Assessment & Plan Assessment & Plan (1) Alcohol abuse with alcohol-induced mental disorder: Status: Acute Code(s): F10.188 - Alcohol abuse with other alcohol-induced disorder Plan The patient is a 78-year-old male with a past history of alcohol use disorder who was brought to the emergency room of another hospital for psychotic symptoms at the this moment currently denies. 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 Plan 1. Gather collateral information. We will try to contact his family and start working on proper diagnosis and treatment plan. 2. Continue with medications as prescribed. 3. We will continue with medical workout. 4. MRI without contrast done that showed no destruction of pulmonary by this. 5. 15 minute checks since the patient is able to contract for safety.. 6. Start Namenda 5 mg p.o. b.i.d. to target cognitive impairment due to dementia. 7. Even though that his dementia is advanced, we will start Aricept 5 mg p.o. q.h.s. in combination with Namenda since it can help on diminishing the progression of his cognitive impairment. On March 05 we increased Aricept to 10 mg p.o. q.h.s. the plan is to increase over the weekend to Namenda 10 mg p.o. b.i.d. 8. Waiting for placement. 9. Seroquel 25 mg p.o. at 17:00 to avoid ing. 10. Increase Seroquel up 12.5 p.o. b.i.d. on August 17. 11. Start tramadol p.r.n. [id number] pain on August 20. 12. On August 22 we are adding Seroquel 25 at bedtime. Total dose of Seroquel 75 mg a day 13. start Keflex 500 mg p.o. b.i.d. for cellulitis 08/27 continue tx plan 08/28 continue plan, awaiting for placement but pt not able to retain this information. Reason for continued inpatient stay Substantial Risk for: inability to function Time Spent With Patient Time: Total time managing care of this patient today ____ minutes.
[2023-08-29] MEDS: QUEtiapine Fumarate 25 MG TABLET PO (17:31)
[2023-08-29 20:00] VITALS: BP 139/68; PULSE 67; RESP 16; TEMP 36.2; O2SAT 94
[2023-08-29] MEDS: QUEtiapine Fumarate 50 MG TABLET PO (20:27)
[2023-08-29] MEDS: Donepezil HCl 10 MG TABLET PO (20:27)
[2023-08-30] MEDS: cephALEXin 500 MG CAPSULE PO ×2 (03:59→13:51)
[2023-08-30 08:00] VITALS: BP 136/66; PULSE 81; RESP 18; TEMP 36.2; O2SAT 98
--- NOTE | 2023-08-30 08:00 | P.PNPSI_ITS ---
Subjective Subjective Date of Service: 08/30/23 Reason For Visit: Adjustment disorder,w/mixed disturbance of emotion Interim History: met with patient. Discussed with nursing. Overall no management issues. Doing well. Awaiting placement. Left hand cellulitis significantly improved with Keflex. Patient denies any concerns. Feeling well cared for. Medication Compliance: Yes Side effects from medications: No Attending Groups: No Review of Systems Acute medical concerns: No Review of Systems Review of Systems Left hand no evidence of cellulitis or swelling Mental Status Exam Mental Status Exam Patient Appearance: Appropriate Patient Orientation: Person and Situation Level of Consciousness: Awake and Appropriate Patient Behavior: Guarded and Passive Mood Description: Calm Affect Description: Constricted Patient Cognition Impaired: Yes Ability to Follow Directions: Good Speech Pattern: Clear Diagnostics Vital Signs (24Hr): Vital Signs - 24 hr 08/29/23 20:00 Temperature 97.1 F Pulse Rate 67 Respiratory Rate 16 Blood Pressure 139/68 Pulse Oximetry 94 Oxygen Delivery Method Room Air BMI result Body Mass Index 21.7 Labs 07/29/23 08:35 Imaging Radiology Impressions: ITS Impressions Shoulder X-Ray 07/30/23 09:55 IMPRESSION: 1. No metallic foreign body. 2. Calcification adjacent to the humeral head likely on the basis of calcific tendinosis. Orbit X-Ray 07/30/23 11:07 IMPRESSION: 1. No unexpected radiopaque foreign bodies. 2. Clear lungs. 3. Nonobstructive bowel gas pattern. 4. Moderate to large degree of colonic stool burden. Brain MRI 07/30/23 20:40 IMPRESSION: No acute intracranial abnormality. No findings to suggest Wernicke encephalopathy. Hand X-Ray 08/26/23 09:05 IMPRESSION: No fracture seen. Medications Medications Current Medications Acetaminophen (Acetaminophen 325 Mg Tablet) 650 mg PO Q6H PRN PRN Reason: Headache/Pain (1-10) Last Admin: 08/29/23 17:41 Dose: 650 mg Al Hydroxide/Mg Hydroxide (Magnesium Hydrox/Alum Hydrox 30 Ml Oral.Susp) 30 ml PO Q6H PRN PRN Reason: Heartburn/Nausea Last Admin: 08/22/23 22:43 Dose: 30 ml Brimonidine Tartrate (Brimonidine Tartrate 0.2% Oph 5 Ml Bottle) 1 drop EYE- BOTH TID [facility] Last Admin: 08/29/23 20:27 Dose: 1 drop Cephalexin HCl (Cephalexin 500 Mg Capsule) 500 mg PO Q12H [facility] Last Admin: 08/30/23 03:59 Dose: 500 mg Donepezil HCl (Donepezil Hcl 10 Mg Tablet) 10 mg PO BEDTIME [facility] Last Admin: 08/29/23 20:27 Dose: 10 mg Guaifenesin (Guaifenesin 200 Mg/10 Ml 10 Ml Liquid) 10 ml PO Q6H PRN PRN Reason: Cough Last Admin: 08/27/23 02:01 Dose: 10 ml Lidocaine (Lidocaine 4 % Patch Adh..Patch) 2 patch TRANSDERMA DAILY PRN; Protocol PRN Reason: bilateral low back pain Last Admin: 08/28/23 02:47 Dose: 1 patch Magnesium Hydroxide (Milk Of Magnesia 30 Ml Oral.Susp) 30 ml PO DAILY PRN PRN Reason: Constipation Last Admin: 08/23/23 08:41 Dose: 30 ml Memantine (Memantine Hcl 10 Mg Tablet) 10 mg PO BID [facility] Last Admin: 08/29/23 20:27 Dose: 10 mg Nystatin (Nystatin Powder 15 Gm Bottle) 1 appl TOPICAL BID [facility]; Protocol Last Admin: 08/29/23 20:29 Dose: Not Given Quetiapine Fumarate (Quetiapine Fumarate 25 Mg Tablet) 25 mg PO BID PRN PRN Reason: anxiety/agitation Last Admin: 08/26/23 20:56 Dose: 25 mg Quetiapine Fumarate (Quetiapine Fumarate 25 Mg Tablet) 25 mg PO DAILY@1700 [facility] Last Admin: 08/29/23 17:31 Dose: 25 mg Quetiapine Fumarate (Quetiapine Fumarate 25 Mg Tablet) 12.5 mg PO BID@0830,1330 [facility] Last Admin: 08/29/23 13:14 Dose: 12.5 mg Quetiapine Fumarate (Quetiapine Fumarate 50 Mg Tablet) 50 mg PO BEDTIME [facility] Last Admin: 08/29/23 20:27 Dose: 50 mg Sumatriptan Succinate (Sumatriptan Succinate 50 Mg Tablet) 50 mg PO DAILY MRX1 PRN PRN Reason: Migraine Headache Last Admin: 08/22/23 03:37 Dose: 50 mg Thiamine HCl (Thiamine Hcl 100 Mg Tablet) 100 mg PO DAILY [facility] Last Admin: 08/29/23 08:35 Dose: 100 mg Tramadol HCl (Tramadol Hcl 50 Mg Tablet) 50 mg PO Q4H PRN PRN Reason: Pain, Moderate(Pain Scale 4-6) Last Admin: 08/28/23 08:26 Dose: 50 mg Trazodone HCl (Trazodone Hcl 50 Mg Tablet) 50 mg PO BEDTIME MRX1 PRN PRN Reason: Insomnia Last Admin: 08/28/23 20:32 Dose: 50 mg Allergies Allergies Allergy/AdvReac Type Severity Reaction Status Date / Time Sulfa (Sulfonamide Allergy Severe ANAPHYLAXIS Verified 08/25/23 23:13 Antibiotics) [SULFA (SULFONAMIDE ANTIBIOTICS)] mold Allergy Intermediate Shortness Verified 08/25/23 22:42 of Breath Assessment & Plan Assessment & Plan (1) Alcohol abuse with alcohol-induced mental disorder: Status: Acute Code(s): F10.188 - Alcohol abuse with other alcohol-induced disorder Plan The patient is a 78-year-old male with a past history of alcohol use disorder who was brought to the emergency room of another hospital for psychotic symptoms at the this moment currently denies. 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 Plan 1. Gather collateral information. We will try to contact his family and start working on proper diagnosis and treatment plan. 2. Continue with medications as prescribed. 3. We will continue with medical workout. 4. MRI without contrast done that showed no destruction of pulmonary by this. 5. 15 minute checks since the patient is able to contract for safety.. 6. Start Namenda 5 mg p.o. b.i.d. to target cognitive impairment due to dementia. 7. Even though that his dementia is advanced, we will start Aricept 5 mg p.o. q.h.s. in combination with Namenda since it can help on diminishing the progression of his cognitive impairment. On March 05 we increased Aricept to 10 mg p.o. q.h.s. the plan is to increase over the weekend to Namenda 10 mg p.o. b.i.d. 8. Waiting for placement. 9. Seroquel 25 mg p.o. at 17:00 to avoid ing. 10. Increase Seroquel up 12.5 p.o. b.i.d. on August 17. 11. Start tramadol p.r.n. [id number] pain on August 20. On August 22 we are adding Seroquel 25 at bedtime. Total dose of Seroquel 75 mg a day 13. start Keflex 500 mg p.o. b.i.d. for cellulitis 08/27 continue tx plan 08/28 continue plan, awaiting for placement but pt not able to retain this information. 08/30/2023: No changes Reason for continued inpatient stay Substantial Risk for: inability to function Time Spent With Patient Time: Total time managing care of this patient today ____ minutes.
[2023-08-30] MEDS: Memantine HCl 10 MG TABLET PO ×2 (08:45→20:59)
[2023-08-30] MEDS: Brimonidine Tartrate 0.2% Oph 5 ML BOTTLE 1 DROP EYE-BOTH ×3 (08:45→21:00)
[2023-08-30] MEDS: QUEtiapine Fumarate 25 MG TABLET 12.5 MG PO ×2 (08:45→13:52)
[2023-08-30] MEDS: Thiamine HCL 100 MG TABLET PO (08:45)
[2023-08-30] MEDS: QUEtiapine Fumarate 25 MG TABLET PO ×2 (16:28→21:48)
[2023-08-30 20:00] VITALS: BP 148/67; PULSE 84; RESP 16; TEMP 36.5; O2SAT 96
[2023-08-30] MEDS: Donepezil HCl 10 MG TABLET PO (20:59)
[2023-08-30] MEDS: QUEtiapine Fumarate 50 MG TABLET PO (20:59)
[2023-08-30] MEDS: Nystatin Powder 15 GM BOTTLE 1 APPL TOPICAL (21:00)
[2023-08-30] MEDS: traZODone HCL 50 MG TABLET PO ×2 (21:48→23:31)
[2023-08-31] MEDS: cephALEXin 500 MG CAPSULE PO ×2 (00:11→20:20)
[2023-08-31 08:03] VITALS: BP 123/60; PULSE 70; RESP 18; TEMP 36.4; O2SAT 97
[2023-08-31] MEDS: Memantine HCl 10 MG TABLET PO ×2 (08:54→20:20)
[2023-08-31] MEDS: QUEtiapine Fumarate 25 MG TABLET 12.5 MG PO ×2 (08:54→14:04)
[2023-08-31] MEDS: Brimonidine Tartrate 0.2% Oph 5 ML BOTTLE 1 DROP EYE-BOTH ×3 (08:54→20:24)
[2023-08-31] MEDS: Thiamine HCL 100 MG TABLET PO (08:55)
--- NOTE | 2023-08-31 10:52 | P.PNPSI_ITS ---
Subjective Subjective Date of Service: 08/31/23 Reason For Visit: Adjustment disorder,w/mixed disturbance of emotion Interim History: met with patient. Discussed with Nursing. Overall continues to do well from a mood perspective. Sleep was a little broken last night. Denies depression. Some redness on the left being more area, not tender, some itching. Will complete Keflex course tomorrow. Medication Compliance: Yes Side effects from medications: No Attending Groups: Yes Review of Systems Acute medical concerns: No Review of Systems Review of Systems Skin erythema on left thenar area. no tenderness. Some itching Mental Status Exam Mental Status Exam Patient Appearance: Appropriate Patient Orientation: Person and Situation Level of Consciousness: Awake and Appropriate Patient Behavior: Passive Mood Description: Calm Affect Description: Constricted Patient Cognition Impaired: Yes Ability to Follow Directions: Good Speech Pattern: Clear Diagnostics Vital Signs (24Hr): Vital Signs - 24 hr 08/30/23 20:00 08/31/23 08:03 Temperature 97.7 F 97.5 F Pulse Rate 84 70 Respiratory Rate 16 18 Blood Pressure 148/67 H 123/60 Pulse Oximetry 96 97 Oxygen Delivery Method Room Air Room Air BMI result Body Mass Index 21.7 Labs 07/29/23 08:35 Imaging Radiology Impressions: ITS Impressions Shoulder X-Ray 07/30/23 09:55 IMPRESSION: 1. No metallic foreign body. 2. Calcification adjacent to the humeral head likely on the basis of calcific tendinosis. Orbit X-Ray 07/30/23 11:07 IMPRESSION: 1. No unexpected radiopaque foreign bodies. 2. Clear lungs. 3. Nonobstructive bowel gas pattern. 4. Moderate to large degree of colonic stool burden. Brain MRI 07/30/23 20:40 IMPRESSION: No acute intracranial abnormality. No findings to suggest Wernicke encephalopathy. Hand X-Ray 08/26/23 09:05 IMPRESSION: No fracture seen. Medications Medications Current Medications Acetaminophen (Acetaminophen 325 Mg Tablet) 650 mg PO Q6H PRN PRN Reason: Headache/Pain (1-10) Last Admin: 08/29/23 17:41 Dose: 650 mg Al Hydroxide/Mg Hydroxide (Magnesium Hydrox/Alum Hydrox 30 Ml Oral.Susp) 30 ml PO Q6H PRN PRN Reason: Heartburn/Nausea Last Admin: 08/22/23 22:43 Dose: 30 ml Brimonidine Tartrate (Brimonidine Tartrate 0.2% Oph 5 Ml Bottle) 1 drop EYE- BOTH TID [facility] Last Admin: 08/31/23 08:54 Dose: 1 drop Cephalexin HCl (Cephalexin 500 Mg Capsule) 500 mg PO BID [facility] Stop: 09/01/23 14:00 Donepezil HCl (Donepezil Hcl 10 Mg Tablet) 10 mg PO BEDTIME [facility] Last Admin: 08/30/23 20:59 Dose: 10 mg Guaifenesin (Guaifenesin 200 Mg/10 Ml 10 Ml Liquid) 10 ml PO Q6H PRN PRN Reason: Cough Last Admin: 08/27/23 02:01 Dose: 10 ml Hydrocortisone (Hydrocortisone 1 % Cream 28.35 Gm Tube) 1 appl TOPICAL BID [facility]; Protocol Lidocaine (Lidocaine 4 % Patch Adh..Patch) 2 patch TRANSDERMA DAILY PRN; Protocol PRN Reason: bilateral low back pain Last Admin: 08/28/23 02:47 Dose: 1 patch Magnesium Hydroxide (Milk Of Magnesia 30 Ml Oral.Susp) 30 ml PO DAILY PRN PRN Reason: Constipation Last Admin: 08/23/23 08:41 Dose: 30 ml Memantine (Memantine Hcl 10 Mg Tablet) 10 mg PO BID [facility] Last Admin: 08/31/23 08:54 Dose: 10 mg Nystatin (Nystatin Powder 15 Gm Bottle) 1 appl TOPICAL BID [facility]; Protocol Last Admin: 08/31/23 08:56 Dose: Not Given Quetiapine Fumarate (Quetiapine Fumarate 25 Mg Tablet) 25 mg PO BID PRN PRN Reason: anxiety/agitation Last Admin: 08/30/23 21:48 Dose: 25 mg Quetiapine Fumarate (Quetiapine Fumarate 25 Mg Tablet) 25 mg PO DAILY@1700 [facility] Last Admin: 08/30/23 16:28 Dose: 25 mg Quetiapine Fumarate (Quetiapine Fumarate 25 Mg Tablet) 12.5 mg PO BID@0830,1330 [facility] Last Admin: 08/31/23 08:54 Dose: 12.5 mg Quetiapine Fumarate (Quetiapine Fumarate 50 Mg Tablet) 50 mg PO BEDTIME [facility] Last Admin: 08/30/23 20:59 Dose: 50 mg Sumatriptan Succinate (Sumatriptan Succinate 50 Mg Tablet) 50 mg PO DAILY MRX1 PRN PRN Reason: Migraine Headache Last Admin: 08/22/23 03:37 Dose: 50 mg Thiamine HCl (Thiamine Hcl 100 Mg Tablet) 100 mg PO DAILY [facility] Last Admin: 08/31/23 08:55 Dose: 100 mg Tramadol HCl (Tramadol Hcl 50 Mg Tablet) 50 mg PO Q4H PRN PRN Reason: moderate to severe pain Trazodone HCl (Trazodone Hcl 50 Mg Tablet) 50 mg PO BEDTIME MRX1 PRN PRN Reason: Insomnia Last Admin: 08/30/23 23:31 Dose: 50 mg Allergies Allergies Allergy/AdvReac Type Severity Reaction Status Date / Time Sulfa (Sulfonamide Allergy Severe ANAPHYLAXIS Verified 08/25/23 23:13 Antibiotics) [SULFA (SULFONAMIDE ANTIBIOTICS)] mold Allergy Intermediate Shortness Verified 08/25/23 22:42 of Breath Assessment & Plan Assessment & Plan (1) Alcohol abuse with alcohol-induced mental disorder: Status: Acute Code(s): F10.188 - Alcohol abuse with other alcohol-induced disorder Plan The patient is a 78-year-old male with a past history of alcohol use disorder who was brought to the emergency room of another hospital for psychotic symptoms at the this moment currently denies. 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 Plan 1. Gather collateral information. We will try to contact his family and start working on proper diagnosis and treatment plan. 2. Continue with medications as prescribed. 3. We will continue with medical workout. 4. MRI without contrast done that showed no destruction of pulmonary by this. 5. 15 minute checks since the patient is able to contract for safety.. 6. Start Namenda 5 mg p.o. b.i.d. to target cognitive impairment due to dementia. 7. Even though that his dementia is advanced, we will start Aricept 5 mg p.o. q.h.s. in combination with Namenda since it can help on diminishing the progression of his cognitive impairment. On March 05 we increased Aricept to 10 mg p.o. q.h.s. the plan is to increase over the weekend to Namenda 10 mg p.o. b.i.d. 8. Waiting for placement. 9. Seroquel 25 mg p.o. at 17:00 to avoid . 10. Increase Seroquel up 12.5 p.o. b.i.d. on August 17. Start tramadol p.r.n. [id number] pain on August 20. On August 22 we are adding Seroquel 25 at bedtime. Total dose of Seroquel 75 mg a day 13. start Keflex 500 mg p.o. b.i.d. for cellulitis 08/27 continue tx plan 08/28 continue plan, awaiting for placement but pt not able to retain this information. 08/31/2023: No changes overall. Add hydrocortisone cream for itching/redness on left hand Reason for continued inpatient stay Substantial Risk for: rapid decompensation Time Spent With Patient Time: Total time managing care of this patient today ____ minutes.
--- NOTE | 2023-08-31 14:06 | PC.NURSE ---
Patient refused Hydrocortisone Cream to left thumb sating, It doesn't bother me anymore.
[2023-08-31] MEDS: QUEtiapine Fumarate 25 MG TABLET PO (16:31)
[2023-08-31 20:18] VITALS: BP 143/70; PULSE 69; RESP 16; TEMP 36.8; O2SAT 96
[2023-08-31] MEDS: Donepezil HCl 10 MG TABLET PO (20:20)
[2023-08-31] MEDS: QUEtiapine Fumarate 50 MG TABLET PO (20:20)
[2023-09-01] MEDS: SUMAtriptan succinate 50 MG TABLET PO (04:20)
[2023-09-01 08:05] VITALS: BP 129/65; PULSE 69; RESP 18; TEMP 36.6; O2SAT 97
[2023-09-01] MEDS: QUEtiapine Fumarate 25 MG TABLET 12.5 MG PO ×2 (08:42→12:36)
[2023-09-01] MEDS: Memantine HCl 10 MG TABLET PO ×2 (08:43→20:57)
[2023-09-01] MEDS: cephALEXin 500 MG CAPSULE PO (08:43)
[2023-09-01] MEDS: Thiamine HCL 100 MG TABLET PO (08:43)
[2023-09-01] MEDS: Brimonidine Tartrate 0.2% Oph 5 ML BOTTLE 1 DROP EYE-BOTH ×3 (08:43→20:56)
--- NOTE | 2023-09-01 15:18 | HO.PSYCHPN ---
Subjective Subjective Date of Service: 09/01/23 Reason For Visit: Adjustment disorder,w/mixed disturbance of emotion Subjective Notes: Conditional Voluntary Interim History: The nursing staff reported the patient had been compliant with medications, pleasant but confused. On interview the patient denies new symptoms, waiting for placement. Mental Status Exam Mental Status Exam Patient Appearance: Appropriate Patient Orientation: Person and Situation Level of Consciousness: Awake and Appropriate Patient Behavior: Guarded and Passive Mood Description: Withdrawn Affect Description: Constricted Patient Cognition Impaired: Yes Ability to Follow Directions: Good Speech Pattern: Clear Hallucinations: None Delusions: Not Present Thought Process: Distracted and Slowed Thinking Thought Content: positive for [place] and positive for Poverty of Content Judgement: Poor Diagnostics Vital Signs (24Hr): Vital Signs - 24 hr 08/31/23 20:18 09/01/23 08:05 Temperature 98.2 F 97.8 F Pulse Rate 69 69 Respiratory Rate 16 18 Blood Pressure 143/70 H 129/65 Pulse Oximetry 96 97 Oxygen Delivery Method Room Air Room Air BMI result Body Mass Index 21.7 Labs 07/29/23 08:35 Imaging Radiology Impressions: ITS Impressions Shoulder X-Ray 07/30/23 09:55 IMPRESSION: 1. No metallic foreign body. 2. Calcification adjacent to the humeral head likely on the basis of calcific tendinosis. Orbit X-Ray 07/30/23 11:07 IMPRESSION: 1. No unexpected radiopaque foreign bodies. 2. Clear lungs. 3. Nonobstructive bowel gas pattern. 4. Moderate to large degree of colonic stool burden. Brain MRI 07/30/23 20:40 IMPRESSION: No acute intracranial abnormality. No findings to suggest Wernicke encephalopathy. Hand X-Ray 08/26/23 09:05 IMPRESSION: No fracture seen. Medications Medications Current Medications Acetaminophen (Acetaminophen 325 Mg Tablet) 650 mg PO Q6H PRN PRN Reason: Headache/Pain (1-10) Last Admin: 08/29/23 17:41 Dose: 650 mg Al Hydroxide/Mg Hydroxide (Magnesium Hydrox/Alum Hydrox 30 Ml Oral.Susp) 30 ml PO Q6H PRN PRN Reason: Heartburn/Nausea Last Admin: 08/22/23 22:43 Dose: 30 ml Brimonidine Tartrate (Brimonidine Tartrate 0.2% Oph 5 Ml Bottle) 1 drop EYE-BOTH TID [facility] Last Admin: 09/01/23 14:35 Dose: 1 drop Donepezil HCl (Donepezil Hcl 10 Mg Tablet) 10 mg PO BEDTIME [facility] Last Admin: 08/31/23 20:20 Dose: 10 mg Guaifenesin (Guaifenesin 200 Mg/10 Ml 10 Ml Liquid) 10 ml PO Q6H PRN PRN Reason: Cough Last Admin: 08/27/23 02:01 Dose: 10 ml Hydrocortisone (Hydrocortisone 1 % Cream 28.35 Gm Tube) 1 appl TOPICAL BID [facility]; Protocol Last Admin: 09/01/23 08:47 Dose: Not Given Lidocaine (Lidocaine 4 % Patch Adh..Patch) 2 patch TRANSDERMA DAILY PRN; Protocol PRN Reason: bilateral low back pain Last Admin: 08/28/23 02:47 Dose: 1 patch Magnesium Hydroxide (Milk Of Magnesia 30 Ml Oral.Susp) 30 ml PO DAILY PRN PRN Reason: Constipation Last Admin: 08/23/23 08:41 Dose: 30 ml Memantine (Memantine Hcl 10 Mg Tablet) 10 mg PO BID [facility] Last Admin: 09/01/23 08:43 Dose: 10 mg Nystatin (Nystatin Powder 15 Gm Bottle) 1 appl TOPICAL BID [facility]; Protocol Last Admin: 09/01/23 08:47 Dose: Not Given Quetiapine Fumarate (Quetiapine Fumarate 25 Mg Tablet) 25 mg PO BID PRN PRN Reason: anxiety/agitation Last Admin: 08/30/23 21:48 Dose: 25 mg Quetiapine Fumarate (Quetiapine Fumarate 25 Mg Tablet) 25 mg PO DAILY@1700 [facility] Last Admin: 08/31/23 16:31 Dose: 25 mg Quetiapine Fumarate (Quetiapine Fumarate 25 Mg Tablet) 12.5 mg PO BID@0830,1330 [facility] Last Admin: 09/01/23 12:36 Dose: 12.5 mg Quetiapine Fumarate (Quetiapine Fumarate 50 Mg Tablet) 50 mg PO BEDTIME [facility] Last Admin: 08/31/23 20:20 Dose: 50 mg Sumatriptan Succinate (Sumatriptan Succinate 50 Mg Tablet) 50 mg PO DAILY MRX1 PRN PRN Reason: Migraine Headache Last Admin: 09/01/23 04:20 Dose: 50 mg Thiamine HCl (Thiamine Hcl 100 Mg Tablet) 100 mg PO DAILY [facility] Last Admin: 09/01/23 08:43 Dose: 100 mg Tramadol HCl (Tramadol Hcl 50 Mg Tablet) 50 mg PO Q4H PRN PRN Reason: moderate to severe pain Trazodone HCl (Trazodone Hcl 50 Mg Tablet) 50 mg PO BEDTIME MRX1 PRN PRN Reason: Insomnia Last Admin: 08/30/23 23:31 Dose: 50 mg Allergies Allergies Allergy/AdvReac Type Severity Reaction Status Date / Time Sulfa (Sulfonamide Allergy Severe ANAPHYLAXIS Verified 08/25/23 23:13 Antibiotics) [SULFA (SULFONAMIDE ANTIBIOTICS)] mold Allergy Intermediate Shortness Verified 08/25/23 22:42 of Breath Assessment & Plan Assessment & Plan (1) Alcohol abuse with alcohol-induced mental disorder: Status: Acute Code(s): F10.188 - Alcohol abuse with other alcohol-induced disorder Plan The patient is a 78-year-old male with a past history of alcohol use disorder who was brought to the emergency room of another hospital for psychotic symptoms at the this moment currently denies. 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 Plan 1. Gather collateral information. We will try to contact his family and start working on proper diagnosis and treatment plan. 2. Continue with medications as prescribed. 3. We will continue with medical workout. 4. MRI without contrast done that showed no destruction of pulmonary by this. 5. 15 minute checks since the patient is able to contract for safety.. 6. Start Namenda 5 mg p.o. b.i.d. to target cognitive impairment due to dementia. 7. Even though that his dementia is advanced, we will start Aricept 5 mg p.o. q.h.s. in combination with Namenda since it can help on diminishing the progression of his cognitive impairment. On March 05 we increased Aricept to 10 mg p.o. q.h.s. the plan is to increase over the weekend to Namenda 10 mg p.o. b.i.d. 8. Waiting for placement. 9. Seroquel 25 mg p.o. at 17:00 to avoid ing. 10. Increase Seroquel up 12.5 p.o. b.i.d. on August 17. 11. Start tramadol p.r.n. [id number] pain on August 20. 12. On August 22 we are adding Seroquel 25 at bedtime. Total dose of Seroquel 75 mg a day 13. start Keflex 500 mg p.o. b.i.d. for cellulitis Reason for continued inpatient stay Substantial Risk for: inability to function, rapid decompensation and med/psych decompensation Time Spent With Patient Time: Total time managing care of this patient today __20__ minutes.
[2023-09-01] MEDS: QUEtiapine Fumarate 25 MG TABLET PO ×2 (17:30→20:56)
[2023-09-01] MEDS: guaiFENesin 200 MG/10 ML 10 ML LIQUID PO (18:14)
[2023-09-01] MEDS: Acetaminophen 325 MG TABLET 650 MG PO (18:14)
[2023-09-01 20:00] VITALS: BP 112/69; PULSE 87; RESP 16; TEMP 36.8; O2SAT 95
[2023-09-01] MEDS: Donepezil HCl 10 MG TABLET PO (20:57)
[2023-09-01] MEDS: traZODone HCL 50 MG TABLET PO ×2 (20:57→22:16)
[2023-09-01] MEDS: QUEtiapine Fumarate 50 MG TABLET PO (20:57)
[2023-09-02 08:40] VITALS: BP 120/60; PULSE 74; RESP 14; TEMP 36.8; O2SAT 94
[2023-09-02] MEDS: Thiamine HCL 100 MG TABLET PO (08:46)
[2023-09-02] MEDS: Memantine HCl 10 MG TABLET PO ×2 (08:46→20:48)
[2023-09-02] MEDS: QUEtiapine Fumarate 25 MG TABLET 12.5 MG PO ×2 (08:46→13:28)
[2023-09-02] MEDS: Brimonidine Tartrate 0.2% Oph 5 ML BOTTLE 1 DROP EYE-BOTH ×3 (08:48→20:47)
--- NOTE | 2023-09-02 16:32 | HO.PSYCHPN ---
Subjective Subjective Date of Service: 09/02/23 Reason For Visit: Adjustment disorder,w/mixed disturbance of emotion Subjective Notes: Conditional Voluntary Interim History: The nursing staff reported the patient remains confused, ambulating in the unit asking for his keys and his cell phone. He had been pleasant easily redirectable, slept 7 hours. The social media specialist reported that the family still working on financial clearance. On interview the patient remains pleasantly confused easily redirectable. Mental Status Exam Mental Status Exam Patient Appearance: Appropriate Patient Orientation: Person and Situation Level of Consciousness: Awake and Appropriate Patient Behavior: Guarded and Passive Mood Description: Calm Affect Description: Constricted Patient Cognition Impaired: Yes Ability to Follow Directions: Fair Speech Pattern: Clear Hallucinations: None Delusions: Not Present Thought Process: Linear Thought Content: positive for [place] and positive for Goal Oriented Judgement: Poor Diagnostics Vital Signs (24Hr): Vital Signs - 24 hr 09/01/23 20:00 09/02/23 08:40 Temperature 98.3 F 98.3 F Pulse Rate 87 74 Respiratory Rate 16 14 Blood Pressure 112/69 120/60 Pulse Oximetry 95 94 Oxygen Delivery Method Room Air Room Air BMI result Body Mass Index 21.7 Labs 07/29/23 08:35 Imaging Radiology Impressions: ITS Impressions Shoulder X-Ray 07/30/23 09:55 IMPRESSION: 1. No metallic foreign body. 2. Calcification adjacent to the humeral head likely on the basis of calcific tendinosis. Orbit X-Ray 07/30/23 11:07 IMPRESSION: 1. No unexpected radiopaque foreign bodies. 2. Clear lungs. 3. Nonobstructive bowel gas pattern. 4. Moderate to large degree of colonic stool burden. Brain MRI 07/30/23 20:40 IMPRESSION: No acute intracranial abnormality. No findings to suggest Wernicke encephalopathy. Hand X-Ray 08/26/23 09:05 IMPRESSION: No fracture seen. Medications Medications Current Medications Acetaminophen (Acetaminophen 325 Mg Tablet) 650 mg PO Q6H PRN PRN Reason: Headache/Pain (1-10) Last Admin: 09/01/23 18:14 Dose: 650 mg Al Hydroxide/Mg Hydroxide (Magnesium Hydrox/Alum Hydrox 30 Ml Oral.Susp) 30 ml PO Q6H PRN PRN Reason: Heartburn/Nausea Last Admin: 08/22/23 22:43 Dose: 30 ml Brimonidine Tartrate (Brimonidine Tartrate 0.2% Oph 5 Ml Bottle) 1 drop EYE-BOTH TID [facility] Last Admin: 09/02/23 13:28 Dose: 1 drop Donepezil HCl (Donepezil Hcl 10 Mg Tablet) 10 mg PO BEDTIME [facility] Last Admin: 09/01/23 20:57 Dose: 10 mg Guaifenesin (Guaifenesin 200 Mg/10 Ml 10 Ml Liquid) 10 ml PO Q6H PRN PRN Reason: Cough Last Admin: 09/01/23 18:14 Dose: 10 ml Hydrocortisone (Hydrocortisone 1 % Cream 28.35 Gm Tube) 1 appl TOPICAL BID [facility]; Protocol Last Admin: 09/02/23 08:50 Dose: Not Given Lidocaine (Lidocaine 4 % Patch Adh..Patch) 2 patch TRANSDERMA DAILY PRN; Protocol PRN Reason: bilateral low back pain Last Admin: 08/28/23 02:47 Dose: 1 patch Magnesium Hydroxide (Milk Of Magnesia 30 Ml Oral.Susp) 30 ml PO DAILY PRN PRN Reason: Constipation Last Admin: 08/23/23 08:41 Dose: 30 ml Memantine (Memantine Hcl 10 Mg Tablet) 10 mg PO BID [facility] Last Admin: 09/02/23 08:46 Dose: 10 mg Nystatin (Nystatin Powder 15 Gm Bottle) 1 appl TOPICAL BID [facility]; Protocol Last Admin: 09/02/23 10:50 Dose: Not Given Quetiapine Fumarate (Quetiapine Fumarate 25 Mg Tablet) 25 mg PO BID PRN PRN Reason: anxiety/agitation Last Admin: 09/01/23 20:56 Dose: 25 mg Quetiapine Fumarate (Quetiapine Fumarate 25 Mg Tablet) 25 mg PO DAILY@1700 [facility] Last Admin: 09/01/23 17:30 Dose: 25 mg Quetiapine Fumarate (Quetiapine Fumarate 25 Mg Tablet) 12.5 mg PO BID@0830,1330 [facility] Last Admin: 09/02/23 13:28 Dose: 12.5 mg Quetiapine Fumarate (Quetiapine Fumarate 50 Mg Tablet) 50 mg PO BEDTIME [facility] Last Admin: 09/01/23 20:57 Dose: 50 mg Sumatriptan Succinate (Sumatriptan Succinate 50 Mg Tablet) 50 mg PO DAILY MRX1 PRN PRN Reason: Migraine Headache Last Admin: 09/01/23 04:20 Dose: 50 mg Thiamine HCl (Thiamine Hcl 100 Mg Tablet) 100 mg PO DAILY [facility] Last Admin: 09/02/23 08:46 Dose: 100 mg Tramadol HCl (Tramadol Hcl 50 Mg Tablet) 50 mg PO Q4H PRN PRN Reason: moderate to severe pain Trazodone HCl (Trazodone Hcl 50 Mg Tablet) 50 mg PO BEDTIME MRX1 PRN PRN Reason: Insomnia Last Admin: 09/01/23 22:16 Dose: 50 mg Allergies Allergies Allergy/AdvReac Type Severity Reaction Status Date / Time Sulfa (Sulfonamide Allergy Severe ANAPHYLAXIS Verified 08/25/23 23:13 Antibiotics) [SULFA (SULFONAMIDE ANTIBIOTICS)] mold Allergy Intermediate Shortness Verified 08/25/23 22:42 of Breath Assessment & Plan Assessment & Plan (1) Alcohol abuse with alcohol-induced mental disorder: Status: Acute Code(s): F10.188 - Alcohol abuse with other alcohol-induced disorder Plan The patient is a 78-year-old male with a past history of alcohol use disorder who was brought to the emergency room of another hospital for psychotic symptoms at the this moment currently denies. 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 Plan 1. Gather collateral information. We will try to contact his family and start working on proper diagnosis and treatment plan. 2. Continue with medications as prescribed. 3. We will continue with medical workout. 4. MRI without contrast done that showed no destruction of pulmonary by this. 5. 15 minute checks since the patient is able to contract for safety.. 6. Start Namenda 5 mg p.o. b.i.d. to target cognitive impairment due to dementia. 7. Even though that his dementia is advanced, we will start Aricept 5 mg p.o. q.h.s. in combination with Namenda since it can help on diminishing the progression of his cognitive impairment. On March 05 we increased Aricept to 10 mg p.o. q.h.s. the plan is to increase over the weekend to Namenda 10 mg p.o. b.i.d. 8. Waiting for placement. 9. Seroquel 25 mg p.o. at 17:00 to avoid ing. 10. Increase Seroquel up 12.5 p.o. b.i.d. on August 17. 11. Start tramadol p.r.n. [id number] pain on August 20. 12. On August 22 we are adding Seroquel 25 at bedtime. Total dose of Seroquel 75 mg a day 13. start Keflex 500 mg p.o. b.i.d. for cellulitis Reason for continued inpatient stay Substantial Risk for: inability to function, rapid decompensation and med/psych decompensation Time Spent With Patient Time: Total time managing care of this patient today __20__ minutes.
[2023-09-02] MEDS: QUEtiapine Fumarate 25 MG TABLET PO ×2 (17:04→20:48)
[2023-09-02 20:00] VITALS: BP 118/63; PULSE 69; RESP 16; TEMP 36.6; O2SAT 95
[2023-09-02] MEDS: traZODone HCL 50 MG TABLET PO (20:48)
[2023-09-02] MEDS: QUEtiapine Fumarate 50 MG TABLET PO (20:48)
[2023-09-02] MEDS: Donepezil HCl 10 MG TABLET PO (20:48)
[2023-09-03] MEDS: Nystatin Powder 15 GM BOTTLE 1 APPL TOPICAL ×2 (04:55→08:09)
[2023-09-03] MEDS: Brimonidine Tartrate 0.2% Oph 5 ML BOTTLE 1 DROP EYE-BOTH ×3 (08:10→20:40)
[2023-09-03] MEDS: QUEtiapine Fumarate 25 MG TABLET 12.5 MG PO ×2 (08:10→12:34)
[2023-09-03] MEDS: Thiamine HCL 100 MG TABLET PO (08:11)
[2023-09-03] MEDS: Memantine HCl 10 MG TABLET PO ×2 (08:11→20:40)
[2023-09-03 08:14] VITALS: BP 135/73; PULSE 82; RESP 16; TEMP 36.9; O2SAT 96
--- NOTE | 2023-09-03 13:33 | HO.PSYCHPN ---
Subjective Subjective Date of Service: 09/03/23 Reason For Visit: Adjustment disorder,w/mixed disturbance of emotion Subjective Notes: Conditional Voluntary Interim History: The nursing staff reported the patient looks pleasantly confused, easily redirectable. On interview the patient denies new symptoms, waiting for placement. Mental Status Exam Mental Status Exam Patient Appearance: Well Grooomed Patient Orientation: Person and Situation Level of Consciousness: Awake and Appropriate Patient Behavior: Guarded and Passive Mood Description: Calm Affect Description: Constricted Patient Cognition Impaired: Yes Ability to Follow Directions: Good Speech Pattern: Clear Hallucinations: None Delusions: Not Present Thought Process: Distracted and Slowed Thinking Thought Content: positive for [place] and positive for Poverty of Content Judgement: Fair Diagnostics Vital Signs (24Hr): Vital Signs - 24 hr 09/02/23 20:00 09/03/23 08:14 Temperature 97.8 F 98.4 F Pulse Rate 69 82 Respiratory Rate 16 16 Blood Pressure 118/63 135/73 Pulse Oximetry 95 96 Oxygen Delivery Method Room Air Room Air BMI result Body Mass Index 21.7 Labs 07/29/23 08:35 Imaging Radiology Impressions: ITS Impressions Shoulder X-Ray 07/30/23 09:55 IMPRESSION: 1. No metallic foreign body. 2. Calcification adjacent to the humeral head likely on the basis of calcific tendinosis. Orbit X-Ray 07/30/23 11:07 IMPRESSION: 1. No unexpected radiopaque foreign bodies. 2. Clear lungs. 3. Nonobstructive bowel gas pattern. 4. Moderate to large degree of colonic stool burden. Brain MRI 07/30/23 20:40 IMPRESSION: No acute intracranial abnormality. No findings to suggest Wernicke encephalopathy. Hand X-Ray 08/26/23 09:05 IMPRESSION: No fracture seen. Medications Medications Current Medications Acetaminophen (Acetaminophen 325 Mg Tablet) 650 mg PO Q6H PRN PRN Reason: Headache/Pain (1-10) Last Admin: 09/01/23 18:14 Dose: 650 mg Al Hydroxide/Mg Hydroxide (Magnesium Hydrox/Alum Hydrox 30 Ml Oral.Susp) 30 ml PO Q6H PRN PRN Reason: Heartburn/Nausea Last Admin: 08/22/23 22:43 Dose: 30 ml Brimonidine Tartrate (Brimonidine Tartrate 0.2% Oph 5 Ml Bottle) 1 drop EYE-BOTH TID [facility] Last Admin: 09/03/23 08:10 Dose: 1 drop Donepezil HCl (Donepezil Hcl 10 Mg Tablet) 10 mg PO BEDTIME [facility] Last Admin: 09/02/23 20:48 Dose: 10 mg Guaifenesin (Guaifenesin 200 Mg/10 Ml 10 Ml Liquid) 10 ml PO Q6H PRN PRN Reason: Cough Last Admin: 09/01/23 18:14 Dose: 10 ml Hydrocortisone (Hydrocortisone 1 % Cream 28.35 Gm Tube) 1 appl TOPICAL BID [facility]; Protocol Last Admin: 09/03/23 08:12 Dose: Not Given Lidocaine (Lidocaine 4 % Patch Adh..Patch) 2 patch TRANSDERMA DAILY PRN; Protocol PRN Reason: bilateral low back pain Last Admin: 08/28/23 02:47 Dose: 1 patch Magnesium Hydroxide (Milk Of Magnesia 30 Ml Oral.Susp) 30 ml PO DAILY PRN PRN Reason: Constipation Last Admin: 08/23/23 08:41 Dose: 30 ml Memantine (Memantine Hcl 10 Mg Tablet) 10 mg PO BID [facility] Last Admin: 09/03/23 08:11 Dose: 10 mg Nystatin (Nystatin Powder 15 Gm Bottle) 1 appl TOPICAL BID [facility]; Protocol Last Admin: 09/03/23 08:09 Dose: 1 appl Quetiapine Fumarate (Quetiapine Fumarate 25 Mg Tablet) 25 mg PO BID PRN PRN Reason: anxiety/agitation Last Admin: 09/02/23 20:48 Dose: 25 mg Quetiapine Fumarate (Quetiapine Fumarate 25 Mg Tablet) 25 mg PO DAILY@1700 [facility] Last Admin: 09/02/23 17:04 Dose: 25 mg Quetiapine Fumarate (Quetiapine Fumarate 25 Mg Tablet) 12.5 mg PO BID@0830,1330 [facility] Last Admin: 09/03/23 12:34 Dose: 12.5 mg Quetiapine Fumarate (Quetiapine Fumarate 50 Mg Tablet) 50 mg PO BEDTIME [facility] Last Admin: 09/02/23 20:48 Dose: 50 mg Sumatriptan Succinate (Sumatriptan Succinate 50 Mg Tablet) 50 mg PO DAILY MRX1 PRN PRN Reason: Migraine Headache Last Admin: 09/01/23 04:20 Dose: 50 mg Thiamine HCl (Thiamine Hcl 100 Mg Tablet) 100 mg PO DAILY [facility] Last Admin: 09/03/23 08:11 Dose: 100 mg Tramadol HCl (Tramadol Hcl 50 Mg Tablet) 50 mg PO Q4H PRN PRN Reason: moderate to severe pain Trazodone HCl (Trazodone Hcl 50 Mg Tablet) 50 mg PO BEDTIME MRX1 PRN PRN Reason: Insomnia Last Admin: 09/02/23 20:48 Dose: 50 mg Allergies Allergies Allergy/AdvReac Type Severity Reaction Status Date / Time Sulfa (Sulfonamide Allergy Severe ANAPHYLAXIS Verified 08/25/23 23:13 Antibiotics) [SULFA (SULFONAMIDE ANTIBIOTICS)] mold Allergy Intermediate Shortness Verified 08/25/23 22:42 of Breath Assessment & Plan Assessment & Plan (1) Alcohol abuse with alcohol-induced mental disorder: Status: Acute Code(s): F10.188 - Alcohol abuse with other alcohol-induced disorder Plan The patient is a 78-year-old male with a past history of alcohol use disorder who was brought to the emergency room of another hospital for psychotic symptoms at the this moment currently denies. 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 Plan 1. Gather collateral information. We will try to contact his family and start working on proper diagnosis and treatment plan. 2. Continue with medications as prescribed. 3. We will continue with medical workout. 4. MRI without contrast done that showed no destruction of pulmonary by this. 5. 15 minute checks since the patient is able to contract for safety.. 6. Start Namenda 5 mg p.o. b.i.d. to target cognitive impairment due to dementia. 7. Even though that his dementia is advanced, we will start Aricept 5 mg p.o. q.h.s. in combination with Namenda since it can help on diminishing the progression of his cognitive impairment. On March 05 we increased Aricept to 10 mg p.o. q.h.s. the plan is to increase over the weekend to Namenda 10 mg p.o. b.i.d. 8. Waiting for placement. 9. Seroquel 25 mg p.o. at 17:00 to avoid ing. 10. Increase Seroquel up 12.5 p.o. b.i.d. on August 17. 11. Start tramadol p.r.n. [id number] pain on August 20. 12. On August 22 we are adding Seroquel 25 at bedtime. Total dose of Seroquel 75 mg a day 13. start Keflex 500 mg p.o. b.i.d. for cellulitis Reason for continued inpatient stay Substantial Risk for: inability to function, rapid decompensation and med/psych decompensation Time Spent With Patient Time: Total time managing care of this patient today _20___ minutes.
[2023-09-03] MEDS: QUEtiapine Fumarate 25 MG TABLET PO (16:42)
[2023-09-03 20:00] VITALS: BP 132/61; PULSE 94; RESP 16; TEMP 36.6; O2SAT 97
[2023-09-03] MEDS: Donepezil HCl 10 MG TABLET PO (20:40)
[2023-09-03] MEDS: QUEtiapine Fumarate 50 MG TABLET PO (20:45)
[2023-09-04] MEDS: traMADoL HCL 50 MG TABLET PO (02:21)
[2023-09-04 07:00] VITALS: BMI 21.8
[2023-09-04 08:18] VITALS: BP 150/66; PULSE 64; RESP 18; TEMP 36.2; O2SAT 97
[2023-09-04] MEDS: QUEtiapine Fumarate 25 MG TABLET 12.5 MG PO ×2 (08:49→13:09)
[2023-09-04] MEDS: Brimonidine Tartrate 0.2% Oph 5 ML BOTTLE 1 DROP EYE-BOTH ×3 (08:49→21:02)
[2023-09-04] MEDS: Memantine HCl 10 MG TABLET PO ×2 (08:49→20:59)
[2023-09-04] MEDS: Thiamine HCL 100 MG TABLET PO (08:49)
--- NOTE | 2023-09-04 14:01 | HO.PSYCHPN ---
Subjective Subjective Date of Service: 09/04/23 Reason For Visit: Adjustment disorder,w/mixed disturbance of emotion Subjective Notes: Conditional Voluntary Interim History: The nursing staff reported the patient had been pleasantly confused, easily redirectable. No changes in mental status. On interview the patient was apraxic. Waiting for placement. Mental Status Exam Mental Status Exam Patient Appearance: Appropriate Patient Orientation: Person and Situation Level of Consciousness: Awake Patient Behavior: Guarded and Passive Mood Description: Calm Affect Description: Constricted Patient Cognition Impaired: Yes Ability to Follow Directions: Good Speech Pattern: Clear Hallucinations: None Delusions: Not Present Thought Process: Distracted and Evasive Thought Content: positive for [place] and positive for Poverty of Content Judgement: Fair Diagnostics Vital Signs (24Hr): Vital Signs - 24 hr 09/03/23 20:00 09/04/23 08:18 Temperature 97.8 F 97.1 F Pulse Rate 94 64 Respiratory Rate 16 18 Blood Pressure 132/61 150/66 H Pulse Oximetry 97 97 Oxygen Delivery Method Room Air Room Air BMI result Body Mass Index 21.8 Labs 07/29/23 08:35 Imaging Radiology Impressions: ITS Impressions Shoulder X-Ray 07/30/23 09:55 IMPRESSION: 1. No metallic foreign body. 2. Calcification adjacent to the humeral head likely on the basis of calcific tendinosis. Orbit X-Ray 07/30/23 11:07 IMPRESSION: 1. No unexpected radiopaque foreign bodies. 2. Clear lungs. 3. Nonobstructive bowel gas pattern. 4. Moderate to large degree of colonic stool burden. Brain MRI 07/30/23 20:40 IMPRESSION: No acute intracranial abnormality. No findings to suggest Wernicke encephalopathy. Hand X-Ray 08/26/23 09:05 IMPRESSION: No fracture seen. Medications Medications Current Medications Acetaminophen (Acetaminophen 325 Mg Tablet) 650 mg PO Q6H PRN PRN Reason: Headache/Pain (1-10) Last Admin: 09/01/23 18:14 Dose: 650 mg Al Hydroxide/Mg Hydroxide (Magnesium Hydrox/Alum Hydrox 30 Ml Oral.Susp) 30 ml PO Q6H PRN PRN Reason: Heartburn/Nausea Last Admin: 08/22/23 22:43 Dose: 30 ml Brimonidine Tartrate (Brimonidine Tartrate 0.2% Oph 5 Ml Bottle) 1 drop EYE-BOTH TID [facility] Last Admin: 09/04/23 08:49 Dose: 1 drop Donepezil HCl (Donepezil Hcl 10 Mg Tablet) 10 mg PO BEDTIME [facility] Last Admin: 09/03/23 20:40 Dose: 10 mg Guaifenesin (Guaifenesin 200 Mg/10 Ml 10 Ml Liquid) 10 ml PO Q6H PRN PRN Reason: Cough Last Admin: 09/01/23 18:14 Dose: 10 ml Hydrocortisone (Hydrocortisone 1 % Cream 28.35 Gm Tube) 1 appl TOPICAL BID [facility]; Protocol Last Admin: 09/04/23 08:51 Dose: Not Given Lidocaine (Lidocaine 4 % Patch Adh..Patch) 2 patch TRANSDERMA DAILY PRN; Protocol PRN Reason: bilateral low back pain Last Admin: 08/28/23 02:47 Dose: 1 patch Magnesium Hydroxide (Milk Of Magnesia 30 Ml Oral.Susp) 30 ml PO DAILY PRN PRN Reason: Constipation Last Admin: 08/23/23 08:41 Dose: 30 ml Memantine (Memantine Hcl 10 Mg Tablet) 10 mg PO BID [facility] Last Admin: 09/04/23 08:49 Dose: 10 mg Nystatin (Nystatin Powder 15 Gm Bottle) 1 appl TOPICAL BID [facility]; Protocol Last Admin: 09/04/23 08:51 Dose: Not Given Quetiapine Fumarate (Quetiapine Fumarate 25 Mg Tablet) 25 mg PO BID PRN PRN Reason: anxiety/agitation Last Admin: 09/02/23 20:48 Dose: 25 mg Quetiapine Fumarate (Quetiapine Fumarate 25 Mg Tablet) 25 mg PO DAILY@1700 [facility] Last Admin: 09/03/23 16:42 Dose: 25 mg Quetiapine Fumarate (Quetiapine Fumarate 25 Mg Tablet) 12.5 mg PO BID@0830,1330 [facility] Last Admin: 09/04/23 13:09 Dose: 12.5 mg Quetiapine Fumarate (Quetiapine Fumarate 50 Mg Tablet) 50 mg PO BEDTIME [facility] Last Admin: 09/03/23 20:45 Dose: 50 mg Sumatriptan Succinate (Sumatriptan Succinate 50 Mg Tablet) 50 mg PO DAILY MRX1 PRN PRN Reason: Migraine Headache Last Admin: 09/01/23 04:20 Dose: 50 mg Thiamine HCl (Thiamine Hcl 100 Mg Tablet) 100 mg PO DAILY [facility] Last Admin: 09/04/23 08:49 Dose: 100 mg Tramadol HCl (Tramadol Hcl 50 Mg Tablet) 50 mg PO Q4H PRN PRN Reason: moderate to severe pain Last Admin: 09/04/23 02:21 Dose: 50 mg Trazodone HCl (Trazodone Hcl 50 Mg Tablet) 50 mg PO BEDTIME MRX1 PRN PRN Reason: Insomnia Last Admin: 09/02/23 20:48 Dose: 50 mg Allergies Allergies Allergy/AdvReac Type Severity Reaction Status Date / Time Sulfa (Sulfonamide Allergy Severe ANAPHYLAXIS Verified 08/25/23 23:13 Antibiotics) [SULFA (SULFONAMIDE ANTIBIOTICS)] mold Allergy Intermediate Shortness Verified 08/25/23 22:42 of Breath Assessment & Plan Assessment & Plan (1) Alcohol abuse with alcohol-induced mental disorder: Status: Acute Code(s): F10.188 - Alcohol abuse with other alcohol-induced disorder Plan The patient is a 78-year-old male with a past history of alcohol use disorder who was brought to the emergency room of another hospital for psychotic symptoms at the this moment currently denies. 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 Plan 1. Gather collateral information. We will try to contact his family and start working on proper diagnosis and treatment plan. 2. Continue with medications as prescribed. 3. We will continue with medical workout. 4. MRI without contrast done that showed no destruction of pulmonary by this. 5. 15 minute checks since the patient is able to contract for safety.. 6. Start Namenda 5 mg p.o. b.i.d. to target cognitive impairment due to dementia. 7. Even though that his dementia is advanced, we will start Aricept 5 mg p.o. q.h.s. in combination with Namenda since it can help on diminishing the progression of his cognitive impairment. On March 05 we increased Aricept to 10 mg p.o. q.h.s. the plan is to increase over the weekend to Namenda 10 mg p.o. b.i.d. 8. Waiting for placement. 9. Seroquel 25 mg p.o. at 17:00 to avoid ing. 10. Increase Seroquel up 12.5 p.o. b.i.d. on August 17. 11. Start tramadol p.r.n. [id number] pain on August 20. 12. On August 22 we are adding Seroquel 25 at bedtime. Total dose of Seroquel 75 mg a day 13. start Keflex 500 mg p.o. b.i.d. for cellulitis Reason for continued inpatient stay Substantial Risk for: inability to function, rapid decompensation and med/psych decompensation Time Spent With Patient Time: Total time managing care of this patient today __20__ minutes.
[2023-09-04] MEDS: QUEtiapine Fumarate 25 MG TABLET PO (16:15)
[2023-09-04 20:00] VITALS: BP 153/70; PULSE 78; RESP 18; TEMP 36.4; O2SAT 94
[2023-09-04] MEDS: QUEtiapine Fumarate 50 MG TABLET PO (20:59)
[2023-09-04] MEDS: Donepezil HCl 10 MG TABLET PO (21:00)
[2023-09-05 08:32] VITALS: BP 135/65; PULSE 76; RESP 15; TEMP 36.7; O2SAT 97
[2023-09-05] MEDS: QUEtiapine Fumarate 25 MG TABLET 12.5 MG PO ×2 (08:34→14:41)
[2023-09-05] MEDS: Memantine HCl 10 MG TABLET PO ×2 (08:34→20:13)
[2023-09-05] MEDS: Thiamine HCL 100 MG TABLET PO (08:34)
[2023-09-05] MEDS: Brimonidine Tartrate 0.2% Oph 5 ML BOTTLE 1 DROP EYE-BOTH ×3 (08:35→20:13)
--- NOTE | 2023-09-05 15:00 | P.PNPSI_ITS ---
Subjective Subjective Date of Service: 09/05/23 Reason For Visit: Adjustment disorder,w/mixed disturbance of emotion Subjective Notes: Conditional Voluntary Interim History: The nursing staff reported the patient had been pleasant cooperative, eating well confused at times but redirectable. On interview the patient denies new symptoms, waiting for placement. Mental Status Exam Mental Status Exam Patient Appearance: Well Grooomed and Appropriate Patient Orientation: Person and Situation Level of Consciousness: Awake and Appropriate Patient Behavior: Appropriate and Passive Mood Description: Constricted Affect Description: Calm Patient Cognition Impaired: Yes Ability to Follow Directions: Good Speech Pattern: Clear and Impoverished Hallucinations: None Delusions: Not Present Thought Process: Distracted and Slowed Thinking Thought Content: positive for [place] and positive for Poverty of Content Judgement: Poor Diagnostics Vital Signs (24Hr): Vital Signs - 24 hr 09/04/23 20:00 09/05/23 08:32 Temperature 97.5 F 98.1 F Pulse Rate 78 76 Respiratory Rate 18 15 Blood Pressure 153/70 H 135/65 Pulse Oximetry 94 97 Oxygen Delivery Method Room Air Room Air BMI result Body Mass Index 21.8 Labs 07/29/23 08:35 Imaging Radiology Impressions: ITS Impressions Shoulder X-Ray 07/30/23 09:55 IMPRESSION: 1. No metallic foreign body. 2. Calcification adjacent to the humeral head likely on the basis of calcific tendinosis. Orbit X-Ray 07/30/23 11:07 IMPRESSION: 1. No unexpected radiopaque foreign bodies. 2. Clear lungs. 3. Nonobstructive bowel gas pattern. 4. Moderate to large degree of colonic stool burden. Brain MRI 07/30/23 20:40 IMPRESSION: No acute intracranial abnormality. No findings to suggest Wernicke encephalopathy. Hand X-Ray 08/26/23 09:05 IMPRESSION: No fracture seen. Medications Medications Current Medications Acetaminophen (Acetaminophen 325 Mg Tablet) 650 mg PO Q6H PRN PRN Reason: Headache/Pain (1-10) Last Admin: 09/01/23 18:14 Dose: 650 mg Al Hydroxide/Mg Hydroxide (Magnesium Hydrox/Alum Hydrox 30 Ml Oral.Susp) 30 ml PO Q6H PRN PRN Reason: Heartburn/Nausea Last Admin: 08/22/23 22:43 Dose: 30 ml Brimonidine Tartrate (Brimonidine Tartrate 0.2% Oph 5 Ml Bottle) 1 drop EYE- BOTH TID [place] Last Admin: 09/05/23 14:40 Dose: 1 drop Donepezil HCl (Donepezil Hcl 10 Mg Tablet) [address] [facility] Last Admin: 09/04/23 21:00 Dose: 10 mg Guaifenesin (Guaifenesin 200 Mg/10 Ml 10 Ml Liquid) 10 ml PO Q6H PRN PRN Reason: Cough Last Admin: 09/01/23 18:14 Dose: 10 ml Hydrocortisone (Hydrocortisone 1 % Cream 28.35 Gm Tube) [address] [facility]; Protocol Last Admin: 09/05/23 08:35 Dose: Not Given Lidocaine (Lidocaine 4 % Patch Adh..Patch) 2 patch TRANSDERMA DAILY PRN; Protocol PRN Reason: bilateral low back pain Last Admin: 08/28/23 02:47 Dose: 1 patch Magnesium Hydroxide (Milk Of Magnesia 30 Ml Oral.Susp) 30 ml PO DAILY PRN PRN Reason: Constipation Last Admin: 08/23/23 08:41 Dose: 30 ml Memantine (Memantine Hcl 10 Mg Tablet) [address] [facility] Last Admin: 09/05/23 08:34 Dose: 10 mg Nystatin (Nystatin Powder 15 Gm Bottle) [address] [facility]; Protocol Last Admin: 09/05/23 08:35 Dose: Not Given Quetiapine Fumarate (Quetiapine Fumarate 25 Mg Tablet) 25 mg PO BID PRN PRN Reason: anxiety/agitation Last Admin: 09/02/23 20:48 Dose: 25 mg Quetiapine Fumarate (Quetiapine Fumarate 25 Mg Tablet) 25 mg PO DAILY@1700 [facility] Last Admin: 09/04/23 16:15 Dose: 25 mg Quetiapine Fumarate (Quetiapine Fumarate 25 Mg Tablet) 12.5 mg PO BID@0830,1330 [facility] Last Admin: 09/05/23 14:41 Dose: 12.5 mg Quetiapine Fumarate (Quetiapine Fumarate 50 Mg Tablet) [address] [facility] Last Admin: 09/04/23 20:59 Dose: 50 mg Sumatriptan Succinate (Sumatriptan Succinate 50 Mg Tablet) 50 mg PO DAILY MRX1 PRN PRN Reason: Migraine Headache Last Admin: 09/01/23 04:20 Dose: 50 mg Thiamine HCl (Thiamine Hcl 100 Mg Tablet) [address] [facility] Last Admin: 09/05/23 08:34 Dose: 100 mg Tramadol HCl (Tramadol Hcl 50 Mg Tablet) 50 mg PO Q4H PRN PRN Reason: moderate to severe pain Last Admin: 09/04/23 02:21 Dose: 50 mg Trazodone HCl (Trazodone Hcl 50 Mg Tablet) 50 mg PO BEDTIME MRX1 PRN PRN Reason: Insomnia Last Admin: 09/02/23 20:48 Dose: 50 mg Allergies Allergies Allergy/AdvReac Type Severity Reaction Status Date / Time Sulfa (Sulfonamide Allergy Severe ANAPHYLAXIS Verified 08/25/23 23:13 Antibiotics) [SULFA (SULFONAMIDE ANTIBIOTICS)] mold Allergy Intermediate Shortness Verified 08/25/23 22:42 of Breath Assessment & Plan Assessment & Plan (1) Alcohol abuse with alcohol-induced mental disorder: Status: Acute Code(s): F10.188 - Alcohol abuse with other alcohol-induced disorder Plan The patient is a 78-year-old male with a past history of alcohol use disorder who was brought to the emergency room of another hospital for psychotic symptoms at the this moment currently denies. 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 Plan 1. Gather collateral information. We will try to contact his family and start working on proper diagnosis and treatment plan. 2. Continue with medications as prescribed. 3. We will continue with medical workout. 4. MRI without contrast done that showed no destruction of pulmonary by this. 5. 15 minute checks since the patient is able to contract for safety.. 6. Start Namenda 5 mg p.o. b.i.d. to target cognitive impairment due to dementia. 7. Even though that his dementia is advanced, we will start Aricept 5 mg p.o. q.h.s. in combination with Namenda since it can help on diminishing the progression of his cognitive impairment. On March 05 we increased Aricept to 10 mg p.o. q.h.s. the plan is to increase over the weekend to Namenda 10 mg p.o. b.i.d. 8. Waiting for placement. 9. Seroquel 25 mg p.o. at 17:00 to avoid ing. 10. Increase Seroquel up 12.5 p.o. b.i.d. on August 17. 11. Start tramadol p.r.n. [id number] pain on August 20. 12. On August 22 we are adding Seroquel 25 at bedtime. Total dose of Seroquel 75 mg a day 13. start Keflex 500 mg p.o. b.i.d. for cellulitis the cellulitis resolved. Reason for continued inpatient stay Substantial Risk for: inability to function, rapid decompensation and med/psych decompensation Time Spent With Patient Time: Total time managing care of this patient today __20__ minutes.
[2023-09-05] MEDS: QUEtiapine Fumarate 25 MG TABLET PO (17:13)
[2023-09-05 20:11] VITALS: BP 169/78; PULSE 84; RESP 16; TEMP 36.6; O2SAT 96
[2023-09-05] MEDS: Donepezil HCl 10 MG TABLET PO (20:12)
[2023-09-05] MEDS: QUEtiapine Fumarate 50 MG TABLET PO (20:12)
[2023-09-05] MEDS: guaiFENesin 200 MG/10 ML 10 ML LIQUID PO (23:21)
[2023-09-06 08:44] VITALS: BP 130/60; PULSE 82; RESP 18; TEMP 36.1; O2SAT 95
[2023-09-06] MEDS: Brimonidine Tartrate 0.2% Oph 5 ML BOTTLE 1 DROP EYE-BOTH ×3 (08:48→20:31)
[2023-09-06] MEDS: QUEtiapine Fumarate 25 MG TABLET 12.5 MG PO (08:48)
[2023-09-06] MEDS: Thiamine HCL 100 MG TABLET PO (08:48)
[2023-09-06] MEDS: Memantine HCl 10 MG TABLET PO ×2 (08:48→20:31)
--- NOTE | 2023-09-06 10:17 | P.PNPSI_ITS ---
Subjective Subjective Date of Service: 09/06/23 Reason For Visit: Adjustment disorder,w/mixed disturbance of emotion Subjective Notes: Conditional Voluntary Interim History: The nursing staff reported the patient had been pleasant cooperative, eating well confused at times but redirectable. On interview the patient denies new symptoms, waiting for placement. Mental Status Exam Mental Status Exam Patient Appearance: Well Grooomed and Appropriate Patient Orientation: Person and Situation Level of Consciousness: Awake and Appropriate Patient Behavior: Appropriate and Passive Mood Description: Constricted Affect Description: Calm Patient Cognition Impaired: Yes Ability to Follow Directions: Good Speech Pattern: Clear and Impoverished Hallucinations: None Delusions: Not Present Thought Process: Distracted and Slowed Thinking Thought Content: positive for [place] and positive for Poverty of Content Judgement: Poor Diagnostics Vital Signs (24Hr): Vital Signs - 24 hr 09/05/23 20:11 09/06/23 08:44 Temperature 98 F 96.9 F Pulse Rate 84 82 Respiratory Rate 16 18 Blood Pressure 169/78 H 130/60 Pulse Oximetry 96 95 Oxygen Delivery Method Room Air Room Air BMI result Body Mass Index 21.8 Labs 07/29/23 08:35 Imaging Radiology Impressions: ITS Impressions Shoulder X-Ray 07/30/23 09:55 IMPRESSION: 1. No metallic foreign body. 2. Calcification adjacent to the humeral head likely on the basis of calcific tendinosis. Orbit X-Ray 07/30/23 11:07 IMPRESSION: 1. No unexpected radiopaque foreign bodies. 2. Clear lungs. 3. Nonobstructive bowel gas pattern. 4. Moderate to large degree of colonic stool burden. Brain MRI 07/30/23 20:40 IMPRESSION: No acute intracranial abnormality. No findings to suggest Wernicke encephalopathy. Hand X-Ray 08/26/23 09:05 IMPRESSION: No fracture seen. Medications Medications Current Medications Acetaminophen (Acetaminophen 325 Mg Tablet) 650 mg PO Q6H PRN PRN Reason: Headache/Pain (1-10) Last Admin: 09/01/23 18:14 Dose: 650 mg Al Hydroxide/Mg Hydroxide (Magnesium Hydrox/Alum Hydrox 30 Ml Oral.Susp) 30 ml PO Q6H PRN PRN Reason: Heartburn/Nausea Last Admin: 08/22/23 22:43 Dose: 30 ml Brimonidine Tartrate (Brimonidine Tartrate 0.2% Oph 5 Ml Bottle) 1 drop EYE- BOTH TID [place] Last Admin: 09/06/23 08:48 Dose: 1 drop Donepezil HCl (Donepezil Hcl 10 Mg Tablet) 10 mg PO BEDTIME [facility] Last Admin: 09/05/23 20:12 Dose: 10 mg Guaifenesin (Guaifenesin 200 Mg/10 Ml 10 Ml Liquid) 10 ml PO Q6H PRN PRN Reason: Cough Last Admin: 09/05/23 23:21 Dose: 10 ml Hydrocortisone (Hydrocortisone 1 % Cream 28.35 Gm Tube) 1 appl TOPICAL BID [facility]; Protocol Last Admin: 09/06/23 08:51 Dose: Not Given Lidocaine (Lidocaine 4 % Patch Adh..Patch) 2 patch TRANSDERMA DAILY PRN; Protocol PRN Reason: bilateral low back pain Last Admin: 08/28/23 02:47 Dose: 1 patch Magnesium Hydroxide (Milk Of Magnesia 30 Ml Oral.Susp) 30 ml PO DAILY PRN PRN Reason: Constipation Last Admin: 08/23/23 08:41 Dose: 30 ml Memantine (Memantine Hcl 10 Mg Tablet) 10 mg PO BID [facility] Last Admin: 09/06/23 08:48 Dose: 10 mg Nystatin (Nystatin Powder 15 Gm Bottle) 1 appl TOPICAL BID [facility]; Protocol Last Admin: 09/06/23 08:51 Dose: Not Given Quetiapine Fumarate (Quetiapine Fumarate 25 Mg Tablet) 25 mg PO BID PRN PRN Reason: anxiety/agitation Last Admin: 09/02/23 20:48 Dose: 25 mg Quetiapine Fumarate (Quetiapine Fumarate 25 Mg Tablet) 25 mg PO DAILY@1700 [facility] Last Admin: 09/05/23 17:13 Dose: 25 mg Quetiapine Fumarate (Quetiapine Fumarate 25 Mg Tablet) 12.5 mg PO BID@0830,1330 [facility] Last Admin: 09/06/23 08:48 Dose: 12.5 mg Quetiapine Fumarate (Quetiapine Fumarate 50 Mg Tablet) 50 mg PO BEDTIME [facility] Last Admin: 09/05/23 20:12 Dose: 50 mg Sumatriptan Succinate (Sumatriptan Succinate 50 Mg Tablet) 50 mg PO DAILY MRX1 PRN PRN Reason: Migraine Headache Last Admin: 09/01/23 04:20 Dose: 50 mg Thiamine HCl (Thiamine Hcl 100 Mg Tablet) 100 mg PO DAILY [facility]CLUD[facility] Last Admin: 09/06/23 08:48 Dose: 100 mg Tramadol HCl (Tramadol Hcl 50 Mg Tablet) 50 mg PO Q4H PRN PRN Reason: moderate to severe pain Last Admin: 09/04/23 02:21 Dose: 50 mg Trazodone HCl (Trazodone Hcl 50 Mg Tablet) 50 mg PO BEDTIME MRX1 PRN PRN Reason: Insomnia Last Admin: 09/02/23 20:48 Dose: 50 mg Allergies Allergies Allergy/AdvReac Type Severity Reaction Status Date / Time Sulfa (Sulfonamide Allergy Severe ANAPHYLAXIS Verified 08/25/23 23:13 Antibiotics) [SULFA (SULFONAMIDE ANTIBIOTICS)] mold Allergy Intermediate Shortness Verified 08/25/23 22:42 of Breath Assessment & Plan Assessment & Plan (1) Alcohol abuse with alcohol-induced mental disorder: Status: Acute Code(s): F10.188 - Alcohol abuse with other alcohol-induced disorder Plan The patient is a 78-year-old male with a past history of alcohol use disorder who was brought to the emergency room of another hospital for psychotic symptoms at the this moment currently denies. 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 Plan 1. Gather collateral information. We will try to contact his family and start working on proper diagnosis and treatment plan. 2. Continue with medications as prescribed. 3. We will continue with medical workout. 4. MRI without contrast done that showed no destruction of pulmonary by this. 5. 15 minute checks since the patient is able to contract for safety.. 6. Start Namenda 5 mg p.o. b.i.d. to target cognitive impairment due to dementia. 7. Even though that his dementia is advanced, we will start Aricept 5 mg p.o. q.h.s. in combination with Namenda since it can help on diminishing the progression of his cognitive impairment. On March 05 we increased Aricept to 10 mg p.o. q.h.s. the plan is to increase over the weekend to Namenda 10 mg p.o. b.i.d. 8. Waiting for placement. 9. Seroquel 25 mg p.o. at 17:00 to avoid ing. 10. Increase Seroquel up 12.5 p.o. b.i.d. on August 17. 11. Start tramadol p.r.n. [id number] pain on August 20. 12. On August 22 we are adding Seroquel 25 at bedtime. Total dose of Seroquel 75 mg a day 13. start Keflex 500 mg p.o. b.i.d. for cellulitis the cellulitis resolved. 09/07/2023 Continue discharge planning patient with recurrent memory disorder Reason for continued inpatient stay Substantial Risk for: inability to function and med/psych decompensation Time Spent With Patient Time: Total time managing care of this patient today ____ minutes.
[2023-09-06] MEDS: QUEtiapine Fumarate 25 MG TABLET PO (15:49)
[2023-09-06 20:29] VITALS: BP 130/67; PULSE 74; RESP 16; TEMP 36.8; O2SAT 96
[2023-09-06] MEDS: Donepezil HCl 10 MG TABLET PO (20:31)
[2023-09-06] MEDS: QUEtiapine Fumarate 50 MG TABLET PO (20:31)
[2023-09-07] MEDS: Memantine HCl 10 MG TABLET PO ×2 (08:34→20:18)
[2023-09-07] MEDS: Brimonidine Tartrate 0.2% Oph 5 ML BOTTLE 1 DROP EYE-BOTH ×3 (08:34→20:18)
[2023-09-07] MEDS: QUEtiapine Fumarate 25 MG TABLET 12.5 MG PO ×2 (08:34→13:35)
[2023-09-07] MEDS: Thiamine HCL 100 MG TABLET PO (08:34)
[2023-09-07 08:35] VITALS: BP 138/63; PULSE 62; RESP 16; TEMP 36.3; O2SAT 96
--- NOTE | 2023-09-07 11:32 | P.PNPSI_ITS ---
Subjective Subjective Date of Service: 09/07/23 Reason For Visit: Adjustment disorder,w/mixed disturbance of emotion Interim History: Patient superficially cooperative limited insight and understanding regarding need for hospitalization Mental Status Exam Mental Status Exam Patient Appearance: Well Grooomed and Appropriate Patient Orientation: Person and Situation Level of Consciousness: Awake and Appropriate Patient Behavior: Appropriate and Passive Mood Description: Constricted Affect Description: Calm Patient Cognition Impaired: Yes Ability to Follow Directions: Good Speech Pattern: Clear and Impoverished Hallucinations: None Delusions: Not Present Thought Process: Distracted and Slowed Thinking Thought Content: positive for [place] and positive for Poverty of Content Judgement: Poor Diagnostics Vital Signs (24Hr): Vital Signs - 24 hr 09/06/23 20:29 09/07/23 08:35 Temperature 98.3 F 97.4 F Pulse Rate 74 62 Respiratory Rate 16 16 Blood Pressure 130/67 138/63 Pulse Oximetry 96 96 Oxygen Delivery Method Room Air Room Air BMI result Body Mass Index 21.8 Labs 07/29/23 08:35 Imaging Radiology Impressions: ITS Impressions Shoulder X-Ray 07/30/23 09:55 IMPRESSION: 1. No metallic foreign body. 2. Calcification adjacent to the humeral head likely on the basis of calcific tendinosis. Orbit X-Ray 07/30/23 11:07 IMPRESSION: 1. No unexpected radiopaque foreign bodies. 2. Clear lungs. 3. Nonobstructive bowel gas pattern. 4. Moderate to large degree of colonic stool burden. Brain MRI 07/30/23 20:40 IMPRESSION: No acute intracranial abnormality. No findings to suggest Wernicke encephalopathy. Hand X-Ray 08/26/23 09:05 IMPRESSION: No fracture seen. Medications Medications Current Medications Acetaminophen (Acetaminophen 325 Mg Tablet) 650 mg PO Q6H PRN PRN Reason: Headache/Pain (1-10) Last Admin: 09/01/23 18:14 Dose: 650 mg Al Hydroxide/Mg Hydroxide (Magnesium Hydrox/Alum Hydrox 30 Ml Oral.Susp) 30 ml PO Q6H PRN PRN Reason: Heartburn/Nausea Last Admin: 08/22/23 22:43 Dose: 30 ml Brimonidine Tartrate (Brimonidine Tartrate 0.2% Oph 5 Ml Bottle) 1 drop EYE- BOTH TID [place] Last Admin: 09/07/23 08:34 Dose: 1 drop Donepezil HCl (Donepezil Hcl 10 Mg Tablet) 10 mg PO BEDTIME [facility] Last Admin: 09/06/23 20:31 Dose: 10 mg Guaifenesin (Guaifenesin 200 Mg/10 Ml 10 Ml Liquid) 10 ml PO Q6H PRN PRN Reason: Cough Last Admin: 09/05/23 23:21 Dose: 10 ml Hydrocortisone (Hydrocortisone 1 % Cream 28.35 Gm Tube) 1 appl TOPICAL BID [facility]; Protocol Last Admin: 09/07/23 08:36 Dose: Not Given Lidocaine (Lidocaine 4 % Patch Adh..Patch) 2 patch TRANSDERMA DAILY PRN; Protocol PRN Reason: bilateral low back pain Last Admin: 08/28/23 02:47 Dose: 1 patch Magnesium Hydroxide (Milk Of Magnesia 30 Ml Oral.Susp) 30 ml PO DAILY PRN PRN Reason: Constipation Last Admin: 08/23/23 08:41 Dose: 30 ml Memantine (Memantine Hcl 10 Mg Tablet) 10 mg PO BID [facility] Last Admin: 09/07/23 08:34 Dose: 10 mg Nystatin (Nystatin Powder 15 Gm Bottle) 1 appl TOPICAL BID [facility]; Protocol Last Admin: 09/07/23 08:36 Dose: Not Given Quetiapine Fumarate (Quetiapine Fumarate 25 Mg Tablet) 25 mg PO BID PRN PRN Reason: anxiety/agitation Last Admin: 09/02/23 20:48 Dose: 25 mg Quetiapine Fumarate (Quetiapine Fumarate 25 Mg Tablet) 25 mg PO DAILY@1700 [facility] Last Admin: 09/06/23 15:49 Dose: 25 mg Quetiapine Fumarate (Quetiapine Fumarate 25 Mg Tablet) 12.5 mg PO BID@0830,1330 [facility] Last Admin: 09/07/23 08:34 Dose: 12.5 mg Quetiapine Fumarate (Quetiapine Fumarate 50 Mg Tablet) 50 mg PO BEDTIME [facility] Last Admin: 09/06/23 20:31 Dose: 50 mg Sumatriptan Succinate (Sumatriptan Succinate 50 Mg Tablet) 50 mg PO DAILY MRX1 PRN PRN Reason: Migraine Headache Last Admin: 09/01/23 04:20 Dose: 50 mg Thiamine HCl (Thiamine Hcl 100 Mg Tablet) 100 mg PO DAILY [facility] Last Admin: 09/07/23 08:34 Dose: 100 mg Tramadol HCl (Tramadol Hcl 50 Mg Tablet) 50 mg PO Q4H PRN PRN Reason: moderate to severe pain Last Admin: 09/04/23 02:21 Dose: 50 mg Trazodone HCl (Trazodone Hcl 50 Mg Tablet) 50 mg PO BEDTIME MRX1 PRN PRN Reason: Insomnia Last Admin: 09/02/23 20:48 Dose: 50 mg Allergies Allergies Allergy/AdvReac Type Severity Reaction Status Date / Time Sulfa (Sulfonamide Allergy Severe ANAPHYLAXIS Verified 08/25/23 23:13 Antibiotics) [SULFA (SULFONAMIDE ANTIBIOTICS)] mold Allergy Intermediate Shortness Verified 08/25/23 22:42 of Breath Assessment & Plan Assessment & Plan (1) Alcohol abuse with alcohol-induced mental disorder: Status: Acute Code(s): F10.188 - Alcohol abuse with other alcohol-induced disorder Plan The patient is a 78-year-old male with a past history of alcohol use disorder who was brought to the emergency room of another hospital for psychotic symptoms at the this moment currently denies. 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 Plan 1. Gather collateral information. We will try to contact his family and start working on proper diagnosis and treatment plan. 2. Continue with medications as prescribed. 3. We will continue with medical workout. 4. MRI without contrast done that showed no destruction of pulmonary by this. 5. 15 minute checks since the patient is able to contract for safety.. 6. Start Namenda 5 mg p.o. b.i.d. to target cognitive impairment due to dementia. 7. Even though that his dementia is advanced, we will start Aricept 5 mg p.o. q.h.s. in combination with Namenda since it can help on diminishing the progression of his cognitive impairment. On March 05 we increased Aricept to 10 mg p.o. q.h.s. the plan is to increase over the weekend to Namenda 10 mg p.o. b.i.d. 8. Waiting for placement. 9. Seroquel 25 mg p.o. at 17:00 to avoid ing. 10. Increase Seroquel up 12.5 p.o. b.i.d. on August 17. 11. Start tramadol p.r.n. [id number] pain on August 20. 12. On August 22 we are adding Seroquel 25 at bedtime. Total dose of Seroquel 75 mg a day 13. start Keflex 500 mg p.o. b.i.d. for cellulitis the cellulitis resolved. 09/06/2023 Continue discharge planning patient with recurrent memory disorder 09/07/2023 Continue plan of care discharge planning Reason for continued inpatient stay Substantial Risk for: inability to function and rapid decompensation Time Spent With Patient Time: Total time managing care of this patient today ____ minutes.
[2023-09-07] MEDS: QUEtiapine Fumarate 25 MG TABLET PO ×2 (16:08→21:32)
[2023-09-07 20:00] VITALS: BP 124/69; PULSE 86; RESP 16; TEMP 36.6; O2SAT 96
[2023-09-07] MEDS: Donepezil HCl 10 MG TABLET PO (20:18)
[2023-09-07] MEDS: QUEtiapine Fumarate 50 MG TABLET PO (20:18)
[2023-09-08 08:00] VITALS: BP 132/60; PULSE 76; RESP 17; TEMP 36.3; O2SAT 98
[2023-09-08] MEDS: Thiamine HCL 100 MG TABLET PO (08:52)
[2023-09-08] MEDS: QUEtiapine Fumarate 25 MG TABLET 12.5 MG PO ×2 (08:52→13:53)
[2023-09-08] MEDS: Memantine HCl 10 MG TABLET PO ×2 (08:52→19:58)
[2023-09-08] MEDS: Brimonidine Tartrate 0.2% Oph 5 ML BOTTLE 1 DROP EYE-BOTH ×3 (08:54→19:58)
--- NOTE | 2023-09-08 10:36 | HO.PSYCHPN ---
Subjective Subjective Date of Service: 09/08/23 Reason For Visit: Adjustment disorder,w/mixed disturbance of emotion Interim History: Team report pt is doing well, although he experiences STM loss and is forgetful, often asking consistently about discharge. Pt participating in milieu group during rounds, so a discussion was not completed with him. Upon observation, he appears engaged in the group process and active with the teams direction. Medication Compliance: Yes Side effects from medications: No Attending Groups: Yes Review of Systems Acute medical concerns: No Medical Review of Systems: unchanged Review of Systems Review of Systems Pt observed in group this a.m. Mental Status Exam Mental Status Exam Patient Appearance: Well Grooomed and Appropriate Patient Orientation: Person and Situation Level of Consciousness: Awake and Appropriate Patient Behavior: Appropriate and Passive Mood Description: Constricted Affect Description: Calm Patient Cognition Impaired: Yes Ability to Follow Directions: Good Speech Pattern: Clear and Impoverished Hallucinations: None Delusions: Not Present Thought Process: Distracted and Slowed Thinking Thought Content: positive for [place] and positive for [place] of Content Judgement: Poor Diagnostics Vital Signs (24Hr): Vital Signs - 24 hr 09/07/23 20:00 09/08/23 08:00 Temperature 98 F 97.3 F Pulse Rate 86 76 Respiratory Rate 16 17 Blood Pressure 124/69 132/60 Pulse Oximetry 96 98 Oxygen Delivery Method Room Air Room Air BMI result Body Mass Index 21.8 Labs 07/29/23 08:35 Imaging Radiology Impressions: ITS Impressions Shoulder X-Ray 07/30/23 09:55 IMPRESSION: 1. No metallic foreign body. 2. Calcification adjacent to the humeral head likely on the basis of calcific tendinosis. Orbit X-Ray 07/30/23 11:07 IMPRESSION: 1. No unexpected radiopaque foreign bodies. 2. Clear lungs. 3. Nonobstructive bowel gas pattern. 4. Moderate to large degree of colonic stool burden. Brain MRI 07/30/23 20:40 IMPRESSION: No acute intracranial abnormality. No findings to suggest Wernicke encephalopathy. Hand X-Ray 08/26/23 09:05 IMPRESSION: No fracture seen. Medications Medications Current Medications Acetaminophen (Acetaminophen 325 Mg Tablet) 650 mg PO Q6H PRN PRN Reason: Headache/Pain (1-10) Last Admin: 09/01/23 18:14 Dose: 650 mg Al Hydroxide/Mg Hydroxide (Magnesium Hydrox/Alum Hydrox 30 Ml Oral.Susp) 30 ml PO Q6H PRN PRN Reason: Heartburn/Nausea Last Admin: 08/22/23 22:43 Dose: 30 ml Brimonidine Tartrate (Brimonidine Tartrate 0.2% Oph 5 Ml Bottle) 1 drop EYE-BOTH TID [facility] Last Admin: 09/08/23 08:54 Dose: 1 drop Donepezil HCl (Donepezil Hcl 10 Mg Tablet) 10 mg PO BEDTIME [facility] Last Admin: 09/07/23 20:18 Dose: 10 mg Guaifenesin (Guaifenesin 200 Mg/10 Ml 10 Ml Liquid) 10 ml PO Q6H PRN PRN Reason: Cough Last Admin: 09/05/23 23:21 Dose: 10 ml Hydrocortisone (Hydrocortisone 1 % Cream 28.35 Gm Tube) 1 appl TOPICAL BID [facility]; Protocol Last Admin: 09/08/23 08:55 Dose: Not Given Lidocaine (Lidocaine 4 % Patch Adh..Patch) 2 patch TRANSDERMA DAILY PRN; Protocol PRN Reason: bilateral low back pain Last Admin: 08/28/23 02:47 Dose: 1 patch Magnesium Hydroxide (Milk Of Magnesia 30 Ml Oral.Susp) 30 ml PO DAILY PRN PRN Reason: Constipation Last Admin: 08/23/23 08:41 Dose: 30 ml Memantine (Memantine Hcl 10 Mg Tablet) 10 mg PO BID [facility] Last Admin: 09/08/23 08:52 Dose: 10 mg Nystatin (Nystatin Powder 15 Gm Bottle) 1 appl TOPICAL BID [facility]; Protocol Last Admin: 09/08/23 08:55 Dose: Not Given Quetiapine Fumarate (Quetiapine Fumarate 25 Mg Tablet) 25 mg PO BID PRN PRN Reason: anxiety/agitation Last Admin: 09/07/23 21:32 Dose: 25 mg Quetiapine Fumarate (Quetiapine Fumarate 25 Mg Tablet) 25 mg PO DAILY@1700 [facility] Last Admin: 09/07/23 16:08 Dose: 25 mg Quetiapine Fumarate (Quetiapine Fumarate 25 Mg Tablet) 12.5 mg PO BID@0830,1330 [facility] Last Admin: 09/08/23 08:52 Dose: 12.5 mg Quetiapine Fumarate (Quetiapine Fumarate 50 Mg Tablet) 50 mg PO BEDTIME [facility] Last Admin: 09/07/23 20:18 Dose: 50 mg Sumatriptan Succinate (Sumatriptan Succinate 50 Mg Tablet) 50 mg PO DAILY MRX1 PRN PRN Reason: Migraine Headache Last Admin: 09/01/23 04:20 Dose: 50 mg Thiamine HCl (Thiamine Hcl 100 Mg Tablet) 100 mg PO DAILY [facility] Last Admin: 09/08/23 08:52 Dose: 100 mg Tramadol HCl (Tramadol Hcl 50 Mg Tablet) 50 mg PO Q4H PRN PRN Reason: moderate to severe pain Last Admin: 09/04/23 02:21 Dose: 50 mg Trazodone HCl (Trazodone Hcl 50 Mg Tablet) 50 mg PO BEDTIME MRX1 PRN PRN Reason: Insomnia Last Admin: 09/02/23 20:48 Dose: 50 mg Allergies Allergies Allergy/AdvReac Type Severity Reaction Status Date / Time Sulfa (Sulfonamide Allergy Severe ANAPHYLAXIS Verified 08/25/23 23:13 Antibiotics) [SULFA (SULFONAMIDE ANTIBIOTICS)] mold Allergy Intermediate Shortness Verified 08/25/23 22:42 of Breath Assessment & Plan Assessment & Plan (1) Alcohol abuse with alcohol-induced mental disorder: Status: Acute Code(s): F10.188 - Alcohol abuse with other alcohol-induced disorder Plan The patient is a 78-year-old male with a past history of alcohol use disorder who was brought to the emergency room of another hospital for psychotic symptoms at the this moment currently denies. 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 Plan 1. Gather collateral information. We will try to contact his family and start working on proper diagnosis and treatment plan. 2. Continue with medications as prescribed. 3. We will continue with medical workout. 4. MRI without contrast done that showed no destruction of pulmonary by this. 5. 15 minute checks since the patient is able to contract for safety.. 6. Start Namenda 5 mg p.o. b.i.d. to target cognitive impairment due to dementia. 7. Even though that his dementia is advanced, we will start Aricept 5 mg p.o. q.h.s. in combination with Namenda since it can help on diminishing the progression of his cognitive impairment. On March 05 we increased Aricept to 10 mg p.o. q.h.s. the plan is to increase over the weekend to Namenda 10 mg p.o. b.i.d. 8. Waiting for placement. 9. Seroquel 25 mg p.o. at 17:00 to avoid owning. 10. Increase Seroquel up 12.5 p.o. b.i.d. on August 17. 11. Start tramadol p.r.n. [id number] pain on August 20. 12. On August 22 we are adding Seroquel 25 at bedtime. Total dose of Seroquel 75 mg a day 13. start Keflex 500 mg p.o. b.i.d. for cellulitis the cellulitis resolved. 09/06/2023 Continue discharge planning patient with recurrent memory disorder 09/07/2023 Continue plan of care discharge planning 09/07 B12,Folate Continue tx plan. Reason for continued inpatient stay Substantial Risk for: rapid decompensation and med/psych decompensation Time Spent With Patient Time: Total time managing care of this patient today ____ minutes.
[2023-09-08] MEDS: QUEtiapine Fumarate 25 MG TABLET PO (17:04)
[2023-09-08] MEDS: QUEtiapine Fumarate 50 MG TABLET PO (19:58)
[2023-09-08] MEDS: Donepezil HCl 10 MG TABLET PO (19:58)
[2023-09-08 20:00] VITALS: BP 132/63; PULSE 80; RESP 18; TEMP 36.7; O2SAT 95
[2023-09-09 08:31] VITALS: BP 114/62; PULSE 63; RESP 17; TEMP 36.5; O2SAT 96
[2023-09-09] MEDS: QUEtiapine Fumarate 25 MG TABLET 12.5 MG PO ×2 (08:32→13:43)
[2023-09-09] MEDS: Thiamine HCL 100 MG TABLET PO (08:32)
[2023-09-09] MEDS: Memantine HCl 10 MG TABLET PO ×2 (08:32→20:05)
[2023-09-09] MEDS: Brimonidine Tartrate 0.2% Oph 5 ML BOTTLE 1 DROP EYE-BOTH ×3 (08:33→20:06)
[2023-09-09 09:06] LABS: Folate 10.4 ng/mL (> or = 4.0); Vitamin B12 405 pg/mL (200-900)
--- NOTE | 2023-09-09 16:00 | P.PNPSI_ITS ---
Subjective Subjective Date of Service: 09/09/23 Reason For Visit: Adjustment disorder,w/mixed disturbance of emotion Interim History: Met with pt who is reading a book about the ending of the [place] War which he discussed. Reports no sx of depression, anxiety, just tired . Discussed his concern about how to be creative when discharged and use his skills to maintain his productivity. 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 He describes this as a job he loved and hopes in some way to continue. Hopes to return to [facility] to live, unsure of his future which he also spoke of. B12 405 Folate 10.4 Medication Compliance: Yes Side effects from medications: No Attending Groups: Yes Review of Systems Acute medical concerns: No Medical Review of Systems: unchanged Review of Systems Review of Systems Yes all other systems are reviewed and are negative (denies) Mental Status Exam Mental Status Exam Patient Appearance: Well Grooomed and Appropriate Patient Orientation: Person and Situation Level of Consciousness: Awake and Appropriate Patient Behavior: Appropriate and Passive Mood Description: Constricted Affect Description: Calm Patient Cognition Impaired: Yes Ability to Follow Directions: Good Speech Pattern: Clear and Impoverished Hallucinations: None Delusions: Not Present Thought Process: Distracted and Slowed Thinking Thought Content: positive for [place] Judgement: Poor Diagnostics Vital Signs (24Hr): Vital Signs - 24 hr 09/08/23 20:00 09/09/23 08:31 Temperature 98.0 F 97.7 F Pulse Rate 80 63 Respiratory Rate 18 17 Blood Pressure 132/63 114/62 Pulse Oximetry 95 96 Oxygen Delivery Method Room Air Room Air BMI result Body Mass Index 21.8 Labs 07/29/23 08:35 Labs: Laboratory Results - last 48 hr 09/09/23 07:57 Vitamin B12 405 Folate 10.4 Imaging Radiology Impressions: ITS Impressions Shoulder X-Ray 07/30/23 09:55 IMPRESSION: 1. No metallic foreign body. 2. Calcification adjacent to the humeral head likely on the basis of calcific tendinosis. Orbit X-Ray 07/30/23 11:07 IMPRESSION: 1. No unexpected radiopaque foreign bodies. 2. Clear lungs. 3. Nonobstructive bowel gas pattern. 4. Moderate to large degree of colonic stool burden. Brain MRI 07/30/23 20:40 IMPRESSION: No acute intracranial abnormality. No findings to suggest Wernicke encephalopathy. Hand X-Ray 08/26/23 09:05 IMPRESSION: No fracture seen. Medications Medications Current Medications Acetaminophen (Acetaminophen 325 Mg Tablet) 650 mg PO Q6H PRN PRN Reason: Headache/Pain (1-10) Last Admin: 09/01/23 18:14 Dose: 650 mg Al Hydroxide/Mg Hydroxide (Magnesium Hydrox/Alum Hydrox 30 Ml Oral.Susp) 30 ml PO Q6H PRN PRN Reason: Heartburn/Nausea Last Admin: 08/22/23 22:43 Dose: 30 ml Brimonidine Tartrate (Brimonidine Tartrate 0.2% Oph 5 Ml Bottle) 1 drop EYE- BOTH TID [facility] Last Admin: 09/09/23 15:32 Dose: 1 drop Donepezil HCl (Donepezil Hcl 10 Mg Tablet) 10 mg PO BEDTIME [facility] Last Admin: 09/08/23 19:58 Dose: 10 mg Guaifenesin (Guaifenesin 200 Mg/10 Ml 10 Ml Liquid) 10 ml PO Q6H PRN PRN Reason: Cough Last Admin: 09/05/23 23:21 Dose: 10 ml Hydrocortisone (Hydrocortisone 1 % Cream 28.35 Gm Tube) 1 appl TOPICAL BID [facility]; Protocol Last Admin: 09/09/23 08:34 Dose: Not Given Lidocaine (Lidocaine 4 % Patch Adh..Patch) 2 patch TRANSDERMA DAILY PRN; Protocol PRN Reason: bilateral low back pain Last Admin: 08/28/23 02:47 Dose: 1 patch Magnesium Hydroxide (Milk Of Magnesia 30 Ml Oral.Susp) 30 ml PO DAILY PRN PRN Reason: Constipation Last Admin: 08/23/23 08:41 Dose: 30 ml Memantine (Memantine Hcl 10 Mg Tablet) 10 mg PO BID [facility] Last Admin: 09/09/23 08:32 Dose: 10 mg Nystatin (Nystatin Powder 15 Gm Bottle) 1 appl TOPICAL BID [facility]; Protocol Last Admin: 09/09/23 08:34 Dose: Not Given Quetiapine Fumarate (Quetiapine Fumarate 25 Mg Tablet) 25 mg PO BID PRN PRN Reason: anxiety/agitation Last Admin: 09/07/23 21:32 Dose: 25 mg Quetiapine Fumarate (Quetiapine Fumarate 25 Mg Tablet) 25 mg PO DAILY@1700 [facility] Last Admin: 09/08/23 17:04 Dose: 25 mg Quetiapine Fumarate (Quetiapine Fumarate 25 Mg Tablet) 12.5 mg PO BID@0830,1330 [facility] Last Admin: 09/09/23 13:43 Dose: 12.5 mg Quetiapine Fumarate (Quetiapine Fumarate 50 Mg Tablet) 50 mg PO BEDTIME [facility] Last Admin: 09/08/23 19:58 Dose: 50 mg Sumatriptan Succinate (Sumatriptan Succinate 50 Mg Tablet) 50 mg PO DAILY MRX1 PRN PRN Reason: Migraine Headache Last Admin: 09/01/23 04:20 Dose: 50 mg Thiamine HCl (Thiamine Hcl 100 Mg Tablet) 100 mg PO DAILY [facility] Last Admin: 09/09/23 08:32 Dose: 100 mg Tramadol HCl (Tramadol Hcl 50 Mg Tablet) 50 mg PO Q4H PRN PRN Reason: moderate to severe pain Last Admin: 09/04/23 02:21 Dose: 50 mg Trazodone HCl (Trazodone Hcl 50 Mg Tablet) 50 mg PO BEDTIME MRX1 PRN PRN Reason: Insomnia Last Admin: 09/02/23 20:48 Dose: 50 mg Allergies Allergies Allergy/AdvReac Type Severity Reaction Status Date / Time Sulfa (Sulfonamide Allergy Severe ANAPHYLAXIS Verified 08/25/23 23:13 Antibiotics) [SULFA (SULFONAMIDE ANTIBIOTICS)] mold Allergy Intermediate Shortness Verified 08/25/23 22:42 of Breath Assessment & Plan Assessment & Plan (1) Alcohol abuse with alcohol-induced mental disorder: Status: Acute Code(s): F10.188 - Alcohol abuse with other alcohol-induced disorder Plan The patient is a 78-year-old male with a past history of alcohol use disorder who was brought to the emergency room of another hospital for psychotic symptoms at the this moment currently denies. 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 Plan 1. Gather collateral information. We will try to contact his family and start working on proper diagnosis and treatment plan. 2. Continue with medications as prescribed. 3. We will continue with medical workout. 4. MRI without contrast done that showed no destruction of pulmonary by this. 5. 15 minute checks since the patient is able to contract for safety.. 6. Start Namenda 5 mg p.o. b.i.d. to target cognitive impairment due to dementia. 7. Even though that his dementia is advanced, we will start Aricept 5 mg p.o. q.h.s. in combination with Namenda since it can help on diminishing the progression of his cognitive impairment. On March 05 we increased Aricept to 10 mg p.o. q.h.s. the plan is to increase over the weekend to Namenda 10 mg p.o. b.i.d. 8. Waiting for placement. 9. Seroquel 25 mg p.o. at 17:00 to avoid ing. 10. Increase Seroquel up 12.5 p.o. b.i.d. on August 17. 11. Start tramadol p.r.n. [id number] pain on August 20. 12. On August 22 we are adding Seroquel 25 at bedtime. Total dose of Seroquel 75 mg a day 13. start Keflex 500 mg p.o. b.i.d. for cellulitis the cellulitis resolved. 09/06/2023 Continue discharge planning patient with recurrent memory disorder 09/07/2023 Continue plan of care discharge planning 09/07 B12,Folate Continue tx plan. 09/08 Continue tx. B12 405, Folate 10.4 Reason for continued inpatient stay Substantial Risk for: rapid decompensation Time Spent With Patient Time: Total time managing care of this patient today ____ minutes.
[2023-09-09] MEDS: QUEtiapine Fumarate 25 MG TABLET PO (17:05)
[2023-09-09 19:40] VITALS: BP 135/61; PULSE 71; RESP 18; TEMP 36.6; O2SAT 95
[2023-09-09] MEDS: Donepezil HCl 10 MG TABLET PO (20:05)
[2023-09-09] MEDS: traZODone HCL 50 MG TABLET PO ×2 (20:05→23:23)
[2023-09-09] MEDS: QUEtiapine Fumarate 50 MG TABLET PO (20:05)
[2023-09-10] MEDS: QUEtiapine Fumarate 25 MG TABLET PO ×3 (00:52→20:47)
[2023-09-10 08:05] VITALS: BP 116/69; PULSE 85; RESP 16; TEMP 36.3; O2SAT 95
[2023-09-10] MEDS: QUEtiapine Fumarate 25 MG TABLET 12.5 MG PO ×2 (08:08→14:01)
[2023-09-10] MEDS: Memantine HCl 10 MG TABLET PO ×2 (08:09→20:46)
[2023-09-10] MEDS: Thiamine HCL 100 MG TABLET PO (08:09)
[2023-09-10] MEDS: Brimonidine Tartrate 0.2% Oph 5 ML BOTTLE 1 DROP EYE-BOTH ×3 (08:23→20:48)
--- NOTE | 2023-09-10 13:21 | P.PNPSI_ITS ---
Subjective Subjective Date of Service: 09/10/23 Reason For Visit: Adjustment disorder,w/mixed disturbance of emotion Interim History: Alert, active in the milieu, interactive. Asking to discharge to return to his home. Medication Compliance: Yes Side effects from medications: No Attending Groups: Yes Review of Systems Acute medical concerns: No Medical Review of Systems: unchanged Review of Systems Review of Systems Yes all other systems are reviewed and are negative Mental Status Exam Mental Status Exam Patient Appearance: Well Grooomed and Appropriate Patient Orientation: Person and Situation Level of Consciousness: Awake and Appropriate Patient Behavior: Appropriate and Passive Mood Description: Constricted Affect Description: Calm Patient Cognition Impaired: Yes Ability to Follow Directions: Good Speech Pattern: Clear and Impoverished Hallucinations: None Delusions: Not Present Thought Process: Distracted and Slowed Thinking Thought Content: positive for [place] Judgement: Poor Diagnostics Vital Signs (24Hr): Vital Signs - 24 hr 09/09/23 19:40 09/10/23 08:05 Temperature 97.8 F 97.3 F Pulse Rate 71 85 Respiratory Rate 18 16 Blood Pressure 135/61 116/69 Pulse Oximetry 95 95 Oxygen Delivery Method Room Air Room Air BMI result Body Mass Index 21.8 Labs 07/29/23 08:35 Labs: Laboratory Results - last 48 hr 09/09/23 07:57 Vitamin B12 405 Folate 10.4 Imaging Radiology Impressions: ITS Impressions Shoulder X-Ray 07/30/23 09:55 IMPRESSION: 1. No metallic foreign body. 2. Calcification adjacent to the humeral head likely on the basis of calcific tendinosis. Orbit X-Ray 07/30/23 11:07 IMPRESSION: 1. No unexpected radiopaque foreign bodies. 2. Clear lungs. 3. Nonobstructive bowel gas pattern. 4. Moderate to large degree of colonic stool burden. Brain MRI 07/30/23 20:40 IMPRESSION: No acute intracranial abnormality. No findings to suggest Wernicke encephalopathy. Hand X-Ray 08/26/23 09:05 IMPRESSION: No fracture seen. Medications Medications Current Medications Acetaminophen (Acetaminophen 325 Mg Tablet) 650 mg PO Q6H PRN PRN Reason: Headache/Pain (1-10) Last Admin: 09/01/23 18:14 Dose: 650 mg Al Hydroxide/Mg Hydroxide (Magnesium Hydrox/Alum Hydrox 30 Ml Oral.Susp) 30 ml PO Q6H PRN PRN Reason: Heartburn/Nausea Last Admin: 08/22/23 22:43 Dose: 30 ml Brimonidine Tartrate (Brimonidine Tartrate 0.2% Oph 5 Ml Bottle) 1 drop EYE- BOTH TID [facility] Last Admin: 09/10/23 08:23 Dose: 1 drop Donepezil HCl (Donepezil Hcl 10 Mg Tablet) 10 mg PO BEDTIME [facility] Last Admin: 09/09/23 20:05 Dose: 10 mg Guaifenesin (Guaifenesin 200 Mg/10 Ml 10 Ml Liquid) 10 ml PO Q6H PRN PRN Reason: Cough Last Admin: 09/05/23 23:21 Dose: 10 ml Hydrocortisone (Hydrocortisone 1 % Cream 28.35 Gm Tube) 1 appl TOPICAL BID [facility]; Protocol Last Admin: 09/10/23 08:24 Dose: Not Given Lidocaine (Lidocaine 4 % Patch Adh..Patch) 2 patch TRANSDERMA DAILY PRN; Protocol PRN Reason: bilateral low back pain Last Admin: 08/28/23 02:47 Dose: 1 patch Magnesium Hydroxide (Milk Of Magnesia 30 Ml Oral.Susp) 30 ml PO DAILY PRN PRN Reason: Constipation Last Admin: 08/23/23 08:41 Dose: 30 ml Memantine (Memantine Hcl 10 Mg Tablet) 10 mg PO BID [facility] Last Admin: 09/10/23 08:09 Dose: 10 mg Nystatin (Nystatin Powder 15 Gm Bottle) 1 appl TOPICAL BID [facility]; Protocol Last Admin: 09/10/23 08:25 Dose: Not Given Quetiapine Fumarate (Quetiapine Fumarate 25 Mg Tablet) 25 mg PO BID PRN PRN Reason: anxiety/agitation Last Admin: 09/10/23 00:52 Dose: 25 mg Quetiapine Fumarate (Quetiapine Fumarate 25 Mg Tablet) 25 mg PO DAILY@1700 [facility] Last Admin: 09/09/23 17:05 Dose: 25 mg Quetiapine Fumarate (Quetiapine Fumarate 25 Mg Tablet) 12.5 mg PO BID@0830,1330 [facility] Last Admin: 09/10/23 08:08 Dose: 12.5 mg Quetiapine Fumarate (Quetiapine Fumarate 50 Mg Tablet) 50 mg PO BEDTIME [facility] Last Admin: 09/09/23 20:05 Dose: 50 mg Sumatriptan Succinate (Sumatriptan Succinate 50 Mg Tablet) 50 mg PO DAILY MRX1 PRN PRN Reason: Migraine Headache Last Admin: 09/01/23 04:20 Dose: 50 mg Thiamine HCl (Thiamine Hcl 100 Mg Tablet) 100 mg PO DAILY [facility] Last Admin: 09/10/23 08:09 Dose: 100 mg Tramadol HCl (Tramadol Hcl 50 Mg Tablet) 50 mg PO Q4H PRN PRN Reason: moderate to severe pain Last Admin: 09/04/23 02:21 Dose: 50 mg Trazodone HCl (Trazodone Hcl 50 Mg Tablet) 50 mg PO BEDTIME MRX1 PRN PRN Reason: Insomnia Last Admin: 09/09/23 23:23 Dose: 50 mg Allergies Allergies Allergy/AdvReac Type Severity Reaction Status Date / Time Sulfa (Sulfonamide Allergy Severe ANAPHYLAXIS Verified 08/25/23 23:13 Antibiotics) [SULFA (SULFONAMIDE ANTIBIOTICS)] mold Allergy Intermediate Shortness Verified 08/25/23 22:42 of Breath Assessment & Plan Assessment & Plan (1) Alcohol abuse with alcohol-induced mental disorder: Status: Acute Code(s): F10.188 - Alcohol abuse with other alcohol-induced disorder Plan The patient is a 78-year-old male with a past history of alcohol use disorder who was brought to the emergency room of another hospital for psychotic symptoms at the this moment currently denies. 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 Plan 1. Gather collateral information. We will try to contact his family and start working on proper diagnosis and treatment plan. 2. Continue with medications as prescribed. 3. We will continue with medical workout. 4. MRI without contrast done that showed no destruction of pulmonary by this. 5. 15 minute checks since the patient is able to contract for safety.. 6. Start Namenda 5 mg p.o. b.i.d. to target cognitive impairment due to dementia. 7. Even though that his dementia is advanced, we will start Aricept 5 mg p.o. q.h.s. in combination with Namenda since it can help on diminishing the progression of his cognitive impairment. On March 05 we increased Aricept to 10 mg p.o. q.h.s. the plan is to increase over the weekend to Namenda 10 mg p.o. b.i.d. 8. Waiting for placement. 9. Seroquel 25 mg p.o. at 17:00 to avoid sundowning. 10. Increase Seroquel up 12.5 p.o. b.i.d. on August 17. 11. Start tramadol p.r.n. [id number] pain on August 20. 12. On August 22 we are adding Seroquel 25 at bedtime. Total dose of Seroquel 75 mg a day 13. start Keflex 500 mg p.o. b.i.d. for cellulitis the cellulitis resolved. 09/06/2023 Continue discharge planning patient with recurrent memory disorder 09/07/2023 Continue plan of care discharge planning 09/07 B12,Folate Continue tx plan. 09/08 Continue tx. B12 405, Folate 10.4 09/09 Continue tx. Reason for continued inpatient stay Substantial Risk for: rapid decompensation Time Spent With Patient Time: Total time managing care of this patient today ____ minutes.
[2023-09-10 20:00] VITALS: BP 127/66; PULSE 87; RESP 16; TEMP 37.1; O2SAT 94
[2023-09-10] MEDS: Donepezil HCl 10 MG TABLET PO (20:47)
[2023-09-10] MEDS: traZODone HCL 50 MG TABLET PO ×2 (20:47→22:52)
[2023-09-10] MEDS: QUEtiapine Fumarate 50 MG TABLET PO (20:48)
[2023-09-10] MEDS: Magnesium Hydrox/Alum Hydrox 30 ML ORAL.SUSP PO (22:52)
[2023-09-11] MEDS: Acetaminophen 325 MG TABLET 650 MG PO (03:24)
[2023-09-11 08:00] VITALS: BP 131/66; PULSE 85; RESP 17; TEMP 36.6; O2SAT 95
[2023-09-11] MEDS: Memantine HCl 10 MG TABLET PO ×2 (08:17→21:03)
[2023-09-11] MEDS: Thiamine HCL 100 MG TABLET PO (08:17)
[2023-09-11] MEDS: QUEtiapine Fumarate 25 MG TABLET 12.5 MG PO ×2 (08:17→13:39)
[2023-09-11] MEDS: Brimonidine Tartrate 0.2% Oph 5 ML BOTTLE 1 DROP EYE-BOTH ×3 (08:18→21:00)
[2023-09-11 13:17] VITALS: BMI 20.7
--- NOTE | 2023-09-11 15:19 | P.PNPSI_ITS ---
Subjective Subjective Date of Service: 09/11/23 Reason For Visit: Adjustment disorder,w/mixed disturbance of emotion Medical Problems Affecting Mental Status: No Interim History: Pt requesting lubricant eye drops for dry eye from the hospitalist team today. These were ordered. Visable, active in milieu-engaged in a phone call at the nurses station. Alert, engaged, attentive to the environment. Medication Compliance: Yes Side effects from medications: No Attending Groups: Yes Review of Systems Acute medical concerns: No Medical Review of Systems: unchanged Review of Systems Review of Systems dry eyes Mental Status Exam Mental Status Exam Patient Appearance: Well Grooomed and Appropriate Patient Orientation: Person and Situation Level of Consciousness: Awake and Appropriate Patient Behavior: Appropriate and Passive Mood Description: Constricted Affect Description: Calm Patient Cognition Impaired: Yes Ability to Follow Directions: Good Speech Pattern: Clear and Impoverished Hallucinations: None Delusions: Not Present Thought Process: Distracted and Slowed Thinking Thought Content: positive for [place] Judgement: Poor Diagnostics Vital Signs (24Hr): Vital Signs - 24 hr 09/10/23 20:00 09/11/23 08:00 Temperature 98.7 F 97.9 F Pulse Rate 87 85 Respiratory Rate 16 17 Blood Pressure 127/66 131/66 Pulse Oximetry 94 95 Oxygen Delivery Method Room Air Room Air BMI result Body Mass Index 20.7 Labs 07/29/23 08:35 Imaging Radiology Impressions: ITS Impressions Shoulder X-Ray 07/30/23 09:55 IMPRESSION: 1. No metallic foreign body. 2. Calcification adjacent to the humeral head likely on the basis of calcific tendinosis. Orbit X-Ray 07/30/23 11:07 IMPRESSION: 1. No unexpected radiopaque foreign bodies. 2. Clear lungs. 3. Nonobstructive bowel gas pattern. 4. Moderate to large degree of colonic stool burden. Brain MRI 07/30/23 20:40 IMPRESSION: No acute intracranial abnormality. No findings to suggest Wernicke encephalopathy. Hand X-Ray 08/26/23 09:05 IMPRESSION: No fracture seen. Medications Medications Current Medications Acetaminophen (Acetaminophen 325 Mg Tablet) 650 mg PO Q6H PRN PRN Reason: Headache/Pain (1-10) Last Admin: 09/11/23 03:24 Dose: 650 mg Al Hydroxide/Mg Hydroxide (Magnesium Hydrox/Alum Hydrox 30 Ml Oral.Susp) 30 ml PO Q6H PRN PRN Reason: Heartburn/Nausea Last Admin: 09/10/23 22:52 Dose: 30 ml Artificial Tears (Artificial Tears 15 Ml Drops) 1 drop EYE-BOTH Q4H PRN PRN Reason: Dry Eyes Brimonidine Tartrate (Brimonidine Tartrate 0.2% Oph 5 Ml Bottle) 1 drop EYE- BOTH TID [facility] Last Admin: 09/11/23 14:55 Dose: 1 drop Donepezil HCl (Donepezil Hcl 10 Mg Tablet) 10 mg PO BEDTIME [facility] Last Admin: 09/10/23 20:47 Dose: 10 mg Guaifenesin (Guaifenesin 200 Mg/10 Ml 10 Ml Liquid) 10 ml PO Q6H PRN PRN Reason: Cough Last Admin: 09/05/23 23:21 Dose: 10 ml Hydrocortisone (Hydrocortisone 1 % Cream 28.35 Gm Tube) 1 appl TOPICAL BID [facility]; Protocol Last Admin: 09/11/23 08:19 Dose: Not Given Lidocaine (Lidocaine 4 % Patch Adh..Patch) 2 patch TRANSDERMA DAILY PRN; Protocol PRN Reason: bilateral low back pain Last Admin: 08/28/23 02:47 Dose: 1 patch Magnesium Hydroxide (Milk Of Magnesia 30 Ml Oral.Susp) 30 ml PO DAILY PRN PRN Reason: Constipation Last Admin: 08/23/23 08:41 Dose: 30 ml Memantine (Memantine Hcl 10 Mg Tablet) 10 mg PO BID [facility] Last Admin: 09/11/23 08:17 Dose: 10 mg Quetiapine Fumarate (Quetiapine Fumarate 25 Mg Tablet) 25 mg PO BID PRN PRN Reason: anxiety/agitation Last Admin: 09/10/23 20:47 Dose: 25 mg Quetiapine Fumarate (Quetiapine Fumarate 25 Mg Tablet) 25 mg PO DAILY@1700 [facility] Last Admin: 09/10/23 17:14 Dose: 25 mg Quetiapine Fumarate (Quetiapine Fumarate 25 Mg Tablet) 12.5 mg PO BID@0830,1330 [facility] Last Admin: 09/11/23 13:39 Dose: 12.5 mg Quetiapine Fumarate (Quetiapine Fumarate 50 Mg Tablet) 50 mg PO BEDTIME [facility] Last Admin: 09/10/23 20:48 Dose: 50 mg Sumatriptan Succinate (Sumatriptan Succinate 50 Mg Tablet) 50 mg PO DAILY MRX1 PRN PRN Reason: Migraine Headache Last Admin: 09/01/23 04:20 Dose: 50 mg Thiamine HCl (Thiamine Hcl 100 Mg Tablet) 100 mg PO DAILY [facility] Last Admin: 09/11/23 08:17 Dose: 100 mg Tramadol HCl (Tramadol Hcl 50 Mg Tablet) 50 mg PO Q4H PRN PRN Reason: moderate to severe pain Last Admin: 09/04/23 02:21 Dose: 50 mg Trazodone HCl (Trazodone Hcl 50 Mg Tablet) 50 mg PO BEDTIME MRX1 PRN PRN Reason: Insomnia Last Admin: 09/10/23 22:52 Dose: 50 mg Allergies Allergies Allergy/AdvReac Type Severity Reaction Status Date / Time Sulfa (Sulfonamide Allergy Severe ANAPHYLAXIS Verified 08/25/23 23:13 Antibiotics) [SULFA (SULFONAMIDE ANTIBIOTICS)] mold Allergy Intermediate Shortness Verified 08/25/23 22:42 of Breath Assessment & Plan Assessment & Plan (1) Alcohol abuse with alcohol-induced mental disorder: Status: Acute Code(s): F10.188 - Alcohol abuse with other alcohol-induced disorder Plan The patient is a 78-year-old male with a past history of alcohol use disorder who was brought to the emergency room of another hospital for psychotic symptoms at the this moment currently denies. 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 Plan 1. Gather collateral information. We will try to contact his family and start working on proper diagnosis and treatment plan. 2. Continue with medications as prescribed. 3. We will continue with medical workout. 4. MRI without contrast done that showed no destruction of pulmonary by this. 5. 15 minute checks since the patient is able to contract for safety.. 6. Start Namenda 5 mg p.o. b.i.d. to target cognitive impairment due to dementia. 7. Even though that his dementia is advanced, we will start Aricept 5 mg p.o. q.h.s. in combination with Namenda since it can help on diminishing the progression of his cognitive impairment. On March 05 we increased Aricept to 10 mg p.o. q.h.s. the plan is to increase over the weekend to Namenda 10 mg p.o. b.i.d. 8. Waiting for placement. 9. Seroquel 25 mg p.o. at 17:00 to avoid sundowning. 10. Increase Seroquel up 12.5 p.o. b.i.d. on August 17. 11. Start tramadol p.r.n. [id number] pain on August 20. 12. On August 22 we are adding Seroquel 25 at bedtime. Total dose of Seroquel 75 mg a day 13. start Keflex 500 mg p.o. b.i.d. for cellulitis the cellulitis resolved. 09/06/2023 Continue discharge planning patient with recurrent memory disorder 09/07/2023 Continue plan of care discharge planning 09/07 B12,Folate Continue tx plan. 09/08 Continue tx. B12 405, Folate 10.4 09/09 Continue tx. 09/10 Artificial Tears ordered per pt request Reason for continued inpatient stay Substantial Risk for: rapid decompensation Time Spent With Patient Time: Total time managing care of this patient today ____ minutes.
[2023-09-11] MEDS: QUEtiapine Fumarate 25 MG TABLET PO ×2 (17:02→21:02)
[2023-09-11 20:00] VITALS: BP 113/62; PULSE 89; RESP 16; TEMP 37.1; O2SAT 95
[2023-09-11] MEDS: Donepezil HCl 10 MG TABLET PO (21:03)
[2023-09-11] MEDS: traZODone HCL 50 MG TABLET PO (21:03)
[2023-09-11] MEDS: QUEtiapine Fumarate 50 MG TABLET PO (21:03)
[2023-09-12] MEDS: QUEtiapine Fumarate 25 MG TABLET 12.5 MG PO ×2 (08:03→13:52)
[2023-09-12] MEDS: Memantine HCl 10 MG TABLET PO ×2 (08:03→21:06)
[2023-09-12] MEDS: Thiamine HCL 100 MG TABLET PO (08:03)
[2023-09-12] MEDS: Brimonidine Tartrate 0.2% Oph 5 ML BOTTLE 1 DROP EYE-BOTH ×3 (08:03→21:08)
[2023-09-12 08:12] VITALS: BP 121/59; PULSE 77; RESP 18; TEMP 36.4; O2SAT 95
[2023-09-12] MEDS: traMADoL HCL 50 MG TABLET PO (17:24)
[2023-09-12] MEDS: QUEtiapine Fumarate 25 MG TABLET PO (17:25)
--- NOTE | 2023-09-12 18:05 | HO.PSYCHPN ---
Subjective Subjective Date of Service: 09/12/23 Reason For Visit: Adjustment disorder,w/mixed disturbance of emotion Interim History: Reviewed with team. No changes they reported. Pt is out in the milieu, on the terrace, reading his book. Reports no current issues or concerns at this time and denies medical/medication issues. Medication Compliance: Yes Side effects from medications: No Attending Groups: Yes Review of Systems Acute medical concerns: No Medical Review of Systems: unchanged Review of Systems Review of Systems Yes all other systems are reviewed and are negative Mental Status Exam Mental Status Exam Patient Appearance: Well Grooomed and Appropriate Patient Orientation: Person and Situation Level of Consciousness: Awake and Appropriate Patient Behavior: Appropriate and Passive Mood Description: Constricted Affect Description: Calm Patient Cognition Impaired: Yes Ability to Follow Directions: Good Speech Pattern: Clear and Impoverished Hallucinations: None Delusions: Not Present Thought Process: Distracted and Slowed Thinking Thought Content: positive for [place] Judgement: Poor Diagnostics Vital Signs (24Hr): Vital Signs - 24 hr 09/11/23 20:00 09/12/23 08:12 Temperature 98.8 F 97.5 F Pulse Rate 89 77 Respiratory Rate 16 18 Blood Pressure 113/62 121/59 L Pulse Oximetry 95 95 Oxygen Delivery Method Room Air Room Air BMI result Body Mass Index 20.7 Labs 07/29/23 08:35 Imaging Radiology Impressions: ITS Impressions Shoulder X-Ray 07/30/23 09:55 IMPRESSION: 1. No metallic foreign body. 2. Calcification adjacent to the humeral head likely on the basis of calcific tendinosis. Orbit X-Ray 07/30/23 11:07 IMPRESSION: 1. No unexpected radiopaque foreign bodies. 2. Clear lungs. 3. Nonobstructive bowel gas pattern. 4. Moderate to large degree of colonic stool burden. Brain MRI 07/30/23 20:40 IMPRESSION: No acute intracranial abnormality. No findings to suggest Wernicke encephalopathy. Hand X-Ray 08/26/23 09:05 IMPRESSION: No fracture seen. Medications Medications Current Medications Acetaminophen (Acetaminophen 325 Mg Tablet) 650 mg PO Q6H PRN PRN Reason: Headache/Pain (1-10) Last Admin: 09/11/23 03:24 Dose: 650 mg Al Hydroxide/Mg Hydroxide (Magnesium Hydrox/Alum Hydrox 30 Ml Oral.Susp) 30 ml PO Q6H PRN PRN Reason: Heartburn/Nausea Last Admin: 09/10/23 22:52 Dose: 30 ml Artificial Tears (Artificial Tears 15 Ml Drops) 1 drop EYE-BOTH Q4H PRN PRN Reason: Dry Eyes Brimonidine Tartrate (Brimonidine Tartrate 0.2% Oph 5 Ml Bottle) 1 drop EYE-BOTH TID [facility] Last Admin: 09/12/23 13:59 Dose: 1 drop Donepezil HCl (Donepezil Hcl 10 Mg Tablet) 10 mg PO BEDTIME [facility] Last Admin: 09/11/23 21:03 Dose: 10 mg Guaifenesin (Guaifenesin 200 Mg/10 Ml 10 Ml Liquid) 10 ml PO Q6H PRN PRN Reason: Cough Last Admin: 09/05/23 23:21 Dose: 10 ml Hydrocortisone (Hydrocortisone 1 % Cream 28.35 Gm Tube) 1 appl TOPICAL BID [facility]; Protocol Last Admin: 09/12/23 11:32 Dose: Not Given Lidocaine (Lidocaine 4 % Patch Adh..Patch) 2 patch TRANSDERMA DAILY PRN; Protocol PRN Reason: bilateral low back pain Last Admin: 08/28/23 02:47 Dose: 1 patch Magnesium Hydroxide (Milk Of Magnesia 30 Ml Oral.Susp) 30 ml PO DAILY PRN PRN Reason: Constipation Last Admin: 08/23/23 08:41 Dose: 30 ml Memantine (Memantine Hcl 10 Mg Tablet) 10 mg PO BID [facility] Last Admin: 09/12/23 08:03 Dose: 10 mg Quetiapine Fumarate (Quetiapine Fumarate 25 Mg Tablet) 25 mg PO BID PRN PRN Reason: anxiety/agitation Last Admin: 09/11/23 21:02 Dose: 25 mg Quetiapine Fumarate (Quetiapine Fumarate 25 Mg Tablet) 25 mg PO DAILY@1700 [facility] Last Admin: 09/12/23 17:25 Dose: 25 mg Quetiapine Fumarate (Quetiapine Fumarate 25 Mg Tablet) 12.5 mg PO BID@0830,1330 [facility] Last Admin: 09/12/23 13:52 Dose: 12.5 mg Quetiapine Fumarate (Quetiapine Fumarate 50 Mg Tablet) 50 mg PO BEDTIME [facility] Last Admin: 09/11/23 21:03 Dose: 50 mg Sumatriptan Succinate (Sumatriptan Succinate 50 Mg Tablet) 50 mg PO DAILY MRX1 PRN PRN Reason: Migraine Headache Last Admin: 09/01/23 04:20 Dose: 50 mg Thiamine HCl (Thiamine Hcl 100 Mg Tablet) 100 mg PO DAILY [facility] Last Admin: 09/12/23 08:03 Dose: 100 mg Tramadol HCl (Tramadol Hcl 50 Mg Tablet) 50 mg PO Q4H PRN PRN Reason: moderate to severe pain Last Admin: 09/12/23 17:24 Dose: 50 mg Trazodone HCl (Trazodone Hcl 50 Mg Tablet) 50 mg PO BEDTIME MRX1 PRN PRN Reason: Insomnia Last Admin: 09/11/23 21:03 Dose: 50 mg Allergies Allergies Allergy/AdvReac Type Severity Reaction Status Date / Time Sulfa (Sulfonamide Allergy Severe ANAPHYLAXIS Verified 08/25/23 23:13 Antibiotics) [SULFA (SULFONAMIDE ANTIBIOTICS)] mold Allergy Intermediate Shortness Verified 08/25/23 22:42 of Breath Assessment & Plan Assessment & Plan (1) Alcohol abuse with alcohol-induced mental disorder: Status: Acute Code(s): F10.188 - Alcohol abuse with other alcohol-induced disorder Plan The patient is a 78-year-old male with a past history of alcohol use disorder who was brought to the emergency room of another hospital for psychotic symptoms at the this moment currently denies. 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 Plan 1. Gather collateral information. We will try to contact his family and start working on proper diagnosis and treatment plan. 2. Continue with medications as prescribed. 3. We will continue with medical workout. 4. MRI without contrast done that showed no destruction of pulmonary by this. 5. 15 minute checks since the patient is able to contract for safety.. 6. Start Namenda 5 mg p.o. b.i.d. to target cognitive impairment due to dementia. 7. Even though that his dementia is advanced, we will start Aricept 5 mg p.o. q.h.s. in combination with Namenda since it can help on diminishing the progression of his cognitive impairment. On March 05 we increased Aricept to 10 mg p.o. q.h.s. the plan is to increase over the weekend to Namenda 10 mg p.o. b.i.d. 8. Waiting for placement. 9. Seroquel 25 mg p.o. at 17:00 to avoid sundowning. 10. Increase Seroquel up 12.5 p.o. b.i.d. on August 17. 11. Start tramadol p.r.n. [id number] pain on August 20. 12. On August 22 we are adding Seroquel 25 at bedtime. Total dose of Seroquel 75 mg a day 13. start Keflex 500 mg p.o. b.i.d. for cellulitis the cellulitis resolved. 09/06/2023 Continue discharge planning patient with recurrent memory disorder 09/07/2023 Continue plan of care discharge planning 09/07 B12,Folate Continue tx plan. 09/08 Continue tx. B12 405, Folate 10.4 09/09 Continue tx. 09/10 Artificial Tears ordered per pt request 09/11 Continue tx. Reason for continued inpatient stay Substantial Risk for: rapid decompensation Time Spent With Patient Time: Total time managing care of this patient today ____ minutes.
[2023-09-12] MEDS: Lidocaine 4 % Patch ADH..PATCH 2 PATCH TRANSDERMA (18:24)
[2023-09-12] MEDS: Magnesium Hydrox/Alum Hydrox 30 ML ORAL.SUSP PO (19:46)
[2023-09-12 20:00] VITALS: BP 136/70; PULSE 76; RESP 16; TEMP 36.1; O2SAT 95
[2023-09-12] MEDS: Donepezil HCl 10 MG TABLET PO (21:05)
[2023-09-12] MEDS: QUEtiapine Fumarate 50 MG TABLET PO (21:05)
[2023-09-12] MEDS: Acetaminophen 325 MG TABLET 650 MG PO (21:05)
[2023-09-13] MEDS: hydrOXYzine HCL 25 MG TABLET PO (04:19)
[2023-09-13 08:11] VITALS: BP 130/67; PULSE 75; RESP 16; TEMP 36.4; O2SAT 97
[2023-09-13] MEDS: Thiamine HCL 100 MG TABLET PO (08:12)
[2023-09-13] MEDS: Memantine HCl 10 MG TABLET PO ×2 (08:12→21:01)
[2023-09-13] MEDS: QUEtiapine Fumarate 25 MG TABLET 12.5 MG PO ×2 (08:12→14:01)
[2023-09-13] MEDS: Brimonidine Tartrate 0.2% Oph 5 ML BOTTLE 1 DROP EYE-BOTH ×3 (08:13→21:01)
--- NOTE | 2023-09-13 08:49 | P.PNPSI_ITS ---
Subjective Subjective Date of Service: 09/13/23 Reason For Visit: Adjustment disorder,w/mixed disturbance of emotion Interim History: Notified 356 am pt reporting intense itching all over his body with no rash and no new med starts. Hydroxyzine x 1 given. Review with team, pt with relief, no rash, team report no changes in presentation. Pt resting when seen, awake alert reports no pruritus. Reports he is doing well. Denies current concerns. Medication Compliance: Yes Side effects from medications: No Attending Groups: Yes Review of Systems Acute medical concerns: No Medical Review of Systems: unchanged Review of Systems Review of Systems pruritus resolved Mental Status Exam Mental Status Exam Patient Appearance: Well Grooomed and Appropriate Patient Orientation: Person and Situation Level of Consciousness: Awake and Appropriate Patient Behavior: Appropriate and Passive Mood Description: Constricted Affect Description: Calm Patient Cognition Impaired: Yes Ability to Follow Directions: Good Speech Pattern: Clear and Impoverished Hallucinations: None Delusions: Not Present Thought Process: Distracted and Slowed Thinking Thought Content: positive for [place] Judgement: Poor Diagnostics Vital Signs (24Hr): Vital Signs - 24 hr 09/12/23 20:00 09/13/23 08:11 Temperature 97 F 97.5 F Pulse Rate 76 75 Respiratory Rate 16 16 Blood Pressure 136/70 130/67 Pulse Oximetry 95 97 Oxygen Delivery Method Room Air Room Air BMI result Body Mass Index 20.7 Labs 07/29/23 08:35 Imaging Radiology Impressions: ITS Impressions Shoulder X-Ray 07/30/23 09:55 IMPRESSION: 1. No metallic foreign body. 2. Calcification adjacent to the humeral head likely on the basis of calcific tendinosis. Orbit X-Ray 07/30/23 11:07 IMPRESSION: 1. No unexpected radiopaque foreign bodies. 2. Clear lungs. 3. Nonobstructive bowel gas pattern. 4. Moderate to large degree of colonic stool burden. Brain MRI 07/30/23 20:40 IMPRESSION: No acute intracranial abnormality. No findings to suggest Wernicke encephalopathy. Hand X-Ray 08/26/23 09:05 IMPRESSION: No fracture seen. Medications Medications Current Medications Acetaminophen (Acetaminophen 325 Mg Tablet) 650 mg PO Q6H PRN PRN Reason: Headache/Pain (1-10) Last Admin: 09/12/23 21:05 Dose: 650 mg Al Hydroxide/Mg Hydroxide (Magnesium Hydrox/Alum Hydrox 30 Ml Oral.Susp) 30 ml PO Q6H PRN PRN Reason: Heartburn/Nausea Last Admin: 09/12/23 19:46 Dose: 30 ml Artificial Tears (Artificial Tears 15 Ml Drops) 1 drop EYE-BOTH Q4H PRN PRN Reason: Dry Eyes Brimonidine Tartrate (Brimonidine Tartrate 0.2% Oph 5 Ml Bottle) 1 drop EYE- BOTH TID [facility] Last Admin: 09/13/23 08:13 Dose: 1 drop Donepezil HCl (Donepezil Hcl 10 Mg Tablet) 10 mg PO BEDTIME [facility] Last Admin: 09/12/23 21:05 Dose: 10 mg Guaifenesin (Guaifenesin 200 Mg/10 Ml 10 Ml Liquid) 10 ml PO Q6H PRN PRN Reason: Cough Last Admin: 09/05/23 23:21 Dose: 10 ml Hydrocortisone (Hydrocortisone 1 % Cream 28.35 Gm Tube) 1 appl TOPICAL BID [facility]; Protocol Last Admin: 09/13/23 08:15 Dose: Not Given Lidocaine (Lidocaine 4 % Patch Adh..Patch) 2 patch TRANSDERMA DAILY PRN; Protocol PRN Reason: bilateral low back pain Last Admin: 09/12/23 18:24 Dose: 2 patch Magnesium Hydroxide (Milk Of Magnesia 30 Ml Oral.Susp) 30 ml PO DAILY PRN PRN Reason: Constipation Last Admin: 08/23/23 08:41 Dose: 30 ml Memantine (Memantine Hcl 10 Mg Tablet) 10 mg PO BID [facility] Last Admin: 09/13/23 08:12 Dose: 10 mg Quetiapine Fumarate (Quetiapine Fumarate 25 Mg Tablet) 25 mg PO BID PRN PRN Reason: anxiety/agitation Last Admin: 09/11/23 21:02 Dose: 25 mg Quetiapine Fumarate (Quetiapine Fumarate 25 Mg Tablet) 25 mg PO DAILY@1700 [facility] Last Admin: 09/12/23 17:25 Dose: 25 mg Quetiapine Fumarate (Quetiapine Fumarate 25 Mg Tablet) 12.5 mg PO BID@0830,1330 [facility] Last Admin: 09/13/23 08:12 Dose: 12.5 mg Quetiapine Fumarate (Quetiapine Fumarate 50 Mg Tablet) 50 mg PO BEDTIME [facility] Last Admin: 09/12/23 21:05 Dose: 50 mg Sumatriptan Succinate (Sumatriptan Succinate 50 Mg Tablet) 50 mg PO DAILY MRX1 PRN PRN Reason: Migraine Headache Last Admin: 09/01/23 04:20 Dose: 50 mg Thiamine HCl (Thiamine Hcl 100 Mg Tablet) 100 mg PO DAILY [facility] Last Admin: 09/13/23 08:12 Dose: 100 mg Tramadol HCl (Tramadol Hcl 50 Mg Tablet) 50 mg PO Q4H PRN PRN Reason: moderate to severe pain Last Admin: 09/12/23 17:24 Dose: 50 mg Trazodone HCl (Trazodone Hcl 50 Mg Tablet) 50 mg PO BEDTIME MRX1 PRN PRN Reason: Insomnia Last Admin: 09/11/23 21:03 Dose: 50 mg Allergies Allergies Allergy/AdvReac Type Severity Reaction Status Date / Time Sulfa (Sulfonamide Allergy Severe ANAPHYLAXIS Verified 08/25/23 23:13 Antibiotics) [SULFA (SULFONAMIDE ANTIBIOTICS)] mold Allergy Intermediate Shortness Verified 08/25/23 22:42 of Breath Assessment & Plan Assessment & Plan (1) Alcohol abuse with alcohol-induced mental disorder: Status: Acute Code(s): F10.188 - Alcohol abuse with other alcohol-induced disorder Plan The patient is a 78-year-old male with a past history of alcohol use disorder who was brought to the emergency room of another hospital for psychotic symptoms at the this moment currently denies. 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 Plan 1. Gather collateral information. We will try to contact his family and start working on proper diagnosis and treatment plan. 2. Continue with medications as prescribed. 3. We will continue with medical workout. 4. MRI without contrast done that showed no destruction of pulmonary by this. 5. 15 minute checks since the patient is able to contract for safety.. 6. Start Namenda 5 mg p.o. b.i.d. to target cognitive impairment due to dementia. 7. Even though that his dementia is advanced, we will start Aricept 5 mg p.o. q.h.s. in combination with Namenda since it can help on diminishing the progression of his cognitive impairment. On March 05 we increased Aricept to 10 mg p.o. q.h.s. the plan is to increase over the weekend to Namenda 10 mg p.o. b.i.d. 8. Waiting for placement. 9. Seroquel 25 mg p.o. at 17:00 to avoid sundowning. 10. Increase Seroquel up 12.5 p.o. b.i.d. on August 17. 11. Start tramadol p.r.n. [id number] pain on August 20. 12. On August 22 we are adding Seroquel 25 at bedtime. Total dose of Seroquel 75 mg a day 13. start Keflex 500 mg p.o. b.i.d. for cellulitis the cellulitis resolved. 09/06/2023 Continue discharge planning patient with recurrent memory disorder 09/07/2023 Continue plan of care discharge planning 09/07 B12,Folate Continue tx plan. 09/08 Continue tx. B12 405, Folate 10.4 09/09 Continue tx. 09/10 Artificial Tears ordered per pt request 09/11 Continue tx. 09/12 Pruritus resolved. Continue to monitor Reason for continued inpatient stay Substantial Risk for: rapid decompensation Time Spent With Patient Time: Total time managing care of this patient today ____ minutes.
[2023-09-13] MEDS: Artificial Tears 15 ML DROPS 1 DROP EYE-BOTH (12:06)
[2023-09-13] MEDS: QUEtiapine Fumarate 25 MG TABLET PO (16:53)
[2023-09-13 20:00] VITALS: BP 143/71; PULSE 86; RESP 18; TEMP 36.2; O2SAT 98
[2023-09-13] MEDS: Acetaminophen 325 MG TABLET 650 MG PO (21:00)
[2023-09-13] MEDS: QUEtiapine Fumarate 50 MG TABLET PO (21:00)
[2023-09-13] MEDS: Lidocaine 4 % Patch ADH..PATCH 2 PATCH TRANSDERMA (21:01)
[2023-09-13] MEDS: Donepezil HCl 10 MG TABLET PO (21:01)
[2023-09-14] MEDS: Acetaminophen 325 MG TABLET 650 MG PO (03:22)
[2023-09-14] MEDS: QUEtiapine Fumarate 25 MG TABLET PO ×3 (03:22→20:23)
[2023-09-14 08:46] VITALS: BP 136/64; PULSE 66; RESP 18; TEMP 36.3; O2SAT 96
[2023-09-14] MEDS: Thiamine HCL 100 MG TABLET PO (09:02)
[2023-09-14] MEDS: QUEtiapine Fumarate 25 MG TABLET 12.5 MG PO (09:02)
[2023-09-14] MEDS: Brimonidine Tartrate 0.2% Oph 5 ML BOTTLE 1 DROP EYE-BOTH ×3 (09:03→20:25)
[2023-09-14] MEDS: Memantine HCl 10 MG TABLET PO ×2 (09:03→20:24)
--- NOTE | 2023-09-14 12:43 | HO.PSYCHPN ---
Subjective Subjective Date of Service: 09/14/23 Reason For Visit: Adjustment disorder,w/mixed disturbance of emotion Interim History: Review with team. They report significant STM loss, asking to speak to MD often about discharge without recall of talking with providers daily about his request. Pt resting in bed. Awake, alert, reports he is feeling very well and wanting to discuss discharge. Medication Compliance: Yes Side effects from medications: No Attending Groups: Intermittent Review of Systems Denies pruritus Medical Review of Systems: unchanged Review of Systems Review of Systems Denies today Mental Status Exam Mental Status Exam Patient Appearance: Well Grooomed and Appropriate Patient Orientation: Person and Situation Level of Consciousness: Awake and Appropriate Patient Behavior: Appropriate and Passive Mood Description: Constricted Affect Description: Calm Patient Cognition Impaired: Yes Ability to Follow Directions: Good Speech Pattern: Clear and Impoverished Hallucinations: None Delusions: Not Present Thought Process: Distracted and Slowed Thinking Thought Content: positive for [place] Judgement: Poor Diagnostics Vital Signs (24Hr): Vital Signs - 24 hr 09/13/23 20:00 09/14/23 08:46 Temperature 97.2 F 97.4 F Pulse Rate 86 66 Respiratory Rate 18 18 Blood Pressure 143/71 H 136/64 Pulse Oximetry 98 96 Oxygen Delivery Method Room Air Room Air BMI result Body Mass Index 20.7 Labs 07/29/23 08:35 Imaging Radiology Impressions: ITS Impressions Shoulder X-Ray 07/30/23 09:55 IMPRESSION: 1. No metallic foreign body. 2. Calcification adjacent to the humeral head likely on the basis of calcific tendinosis. Orbit X-Ray 07/30/23 11:07 IMPRESSION: 1. No unexpected radiopaque foreign bodies. 2. Clear lungs. 3. Nonobstructive bowel gas pattern. 4. Moderate to large degree of colonic stool burden. Brain MRI 07/30/23 20:40 IMPRESSION: No acute intracranial abnormality. No findings to suggest Wernicke encephalopathy. Hand X-Ray 08/26/23 09:05 IMPRESSION: No fracture seen. Medications Medications Current Medications Acetaminophen (Acetaminophen 325 Mg Tablet) 650 mg PO Q6H PRN PRN Reason: Headache/Pain (1-10) Last Admin: 09/14/23 03:22 Dose: 650 mg Al Hydroxide/Mg Hydroxide (Magnesium Hydrox/Alum Hydrox 30 Ml Oral.Susp) 30 ml PO Q6H PRN PRN Reason: Heartburn/Nausea Last Admin: 09/12/23 19:46 Dose: 30 ml Artificial Tears (Artificial Tears 15 Ml Drops) 1 drop EYE-BOTH Q4H PRN PRN Reason: Dry Eyes Last Admin: 09/13/23 12:06 Dose: 1 drop Brimonidine Tartrate (Brimonidine Tartrate 0.2% Oph 5 Ml Bottle) 1 drop EYE-BOTH TID [facility] Last Admin: 09/14/23 09:03 Dose: 1 drop Donepezil HCl (Donepezil Hcl 10 Mg Tablet) 10 mg PO BEDTIME [facility] Last Admin: 09/13/23 21:01 Dose: 10 mg Guaifenesin (Guaifenesin 200 Mg/10 Ml 10 Ml Liquid) 10 ml PO Q6H PRN PRN Reason: Cough Last Admin: 09/05/23 23:21 Dose: 10 ml Hydrocortisone (Hydrocortisone 1 % Cream 28.35 Gm Tube) 1 appl TOPICAL BID [facility]; Protocol Last Admin: 09/14/23 09:09 Dose: Not Given Lidocaine (Lidocaine 4 % Patch Adh..Patch) 2 patch TRANSDERMA DAILY PRN; Protocol PRN Reason: bilateral low back pain Last Admin: 09/13/23 21:01 Dose: 2 patch Magnesium Hydroxide (Milk Of Magnesia 30 Ml Oral.Susp) 30 ml PO DAILY PRN PRN Reason: Constipation Last Admin: 08/23/23 08:41 Dose: 30 ml Memantine (Memantine Hcl 10 Mg Tablet) 10 mg PO BID [facility] Last Admin: 09/14/23 09:03 Dose: 10 mg Quetiapine Fumarate (Quetiapine Fumarate 25 Mg Tablet) 25 mg PO BID PRN PRN Reason: anxiety/agitation Last Admin: 09/14/23 03:22 Dose: 25 mg Quetiapine Fumarate (Quetiapine Fumarate 25 Mg Tablet) 25 mg PO DAILY@1700 [facility] Last Admin: 09/13/23 16:53 Dose: 25 mg Quetiapine Fumarate (Quetiapine Fumarate 25 Mg Tablet) 12.5 mg PO BID@0830,1330 [facility] Last Admin: 09/14/23 09:02 Dose: 12.5 mg Quetiapine Fumarate (Quetiapine Fumarate 50 Mg Tablet) 50 mg PO BEDTIME [facility] Last Admin: 09/13/23 21:00 Dose: 50 mg Sumatriptan Succinate (Sumatriptan Succinate 50 Mg Tablet) 50 mg PO DAILY MRX1 PRN PRN Reason: Migraine Headache Last Admin: 09/01/23 04:20 Dose: 50 mg Thiamine HCl (Thiamine Hcl 100 Mg Tablet) 100 mg PO DAILY [facility] Last Admin: 09/14/23 09:02 Dose: 100 mg Trazodone HCl (Trazodone Hcl 50 Mg Tablet) 50 mg PO BEDTIME MRX1 PRN PRN Reason: Insomnia Last Admin: 09/11/23 21:03 Dose: 50 mg Allergies Allergies Allergy/AdvReac Type Severity Reaction Status Date / Time Sulfa (Sulfonamide Allergy Severe ANAPHYLAXIS Verified 08/25/23 23:13 Antibiotics) [SULFA (SULFONAMIDE ANTIBIOTICS)] mold Allergy Intermediate Shortness Verified 08/25/23 22:42 of Breath Assessment & Plan Assessment & Plan (1) Alcohol abuse with alcohol-induced mental disorder: Status: Acute Code(s): F10.188 - Alcohol abuse with other alcohol-induced disorder Plan The patient is a 78-year-old male with a past history of alcohol use disorder who was brought to the emergency room of another hospital for psychotic symptoms at the this moment currently denies. 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 Plan 1. Gather collateral information. We will try to contact his family and start working on proper diagnosis and treatment plan. 2. Continue with medications as prescribed. 3. We will continue with medical workout. 4. MRI without contrast done that showed no destruction of pulmonary by this. 5. 15 minute checks since the patient is able to contract for safety.. 6. Start Namenda 5 mg p.o. b.i.d. to target cognitive impairment due to dementia. 7. Even though that his dementia is advanced, we will start Aricept 5 mg p.o. q.h.s. in combination with Namenda since it can help on diminishing the progression of his cognitive impairment. On March 05 we increased Aricept to 10 mg p.o. q.h.s. the plan is to increase over the weekend to Namenda 10 mg p.o. b.i.d. 8. Waiting for placement. 9. Seroquel 25 mg p.o. at 17:00 to avoid ing. 10. Increase Seroquel up 12.5 p.o. b.i.d. on [place] 24. 11. Start tramadol p.r.n. [id number] pain on August 20. . On August 22 we are adding Seroquel 25 at bedtime. Total dose of Seroquel 75 mg a day 13. start Keflex 500 mg p.o. b.i.d. for cellulitis the cellulitis resolved. 09/06/2023 Continue discharge planning patient with recurrent memory disorder 09/07/2023 Continue plan of care discharge planning 09/07 B12,Folate Continue tx plan. 09/08 Continue tx. B12 405, Folate 10.4 09/09 Continue tx. 09/10 Artificial Tears ordered per pt request 09/11 Continue tx. 09/12 Pruritus resolved. Continue to monitor 09/13 Continue tx Reason for continued inpatient stay Substantial Risk for: rapid decompensation Time Spent With Patient Time: Total time managing care of this patient today ____ minutes.
[2023-09-14] MEDS: Artificial Tears 15 ML DROPS 1 DROP EYE-BOTH (15:52)
[2023-09-14 20:00] VITALS: BP 141/66; PULSE 79; RESP 18; TEMP 36.2; O2SAT 96
[2023-09-14] MEDS: traZODone HCL 50 MG TABLET PO (20:24)
[2023-09-14] MEDS: QUEtiapine Fumarate 50 MG TABLET PO (20:24)
[2023-09-14] MEDS: Donepezil HCl 10 MG TABLET PO (20:24)
[2023-09-15] MEDS: Acetaminophen 325 MG TABLET 650 MG PO (00:05)
[2023-09-15] MEDS: traZODone HCL 50 MG TABLET PO ×2 (00:06→20:55)
[2023-09-15 09:28] VITALS: BP 134/59; PULSE 87; RESP 16; TEMP 36.6; O2SAT 95
[2023-09-15] MEDS: Memantine HCl 10 MG TABLET PO ×2 (09:36→20:55)
[2023-09-15] MEDS: QUEtiapine Fumarate 25 MG TABLET 12.5 MG PO ×2 (09:36→13:59)
[2023-09-15] MEDS: Thiamine HCL 100 MG TABLET PO (09:36)
[2023-09-15] MEDS: Brimonidine Tartrate 0.2% Oph 5 ML BOTTLE 1 DROP EYE-BOTH ×3 (09:37→20:54)
--- NOTE | 2023-09-15 10:13 | P.PNPSI_ITS ---
Subjective Subjective Date of Service: 09/15/23 Reason For Visit: Adjustment disorder,w/mixed disturbance of emotion Subjective Notes: Conditional Voluntary Interim History: Pt slept all night. Severe anterograde amnesia, not remembering what the plan for discharge is nor discussion about dx of dementia. He presents as pleasant, attends groups. No behavioral concerns. He is taking medications as prescribed. Review of Systems Review of Systems Denies today Yes all other systems are reviewed and are negative Mental Status Exam Mental Status Exam Patient Appearance: Well Grooomed and Appropriate Patient Orientation: Person and Situation Level of Consciousness: Awake and Appropriate Patient Behavior: Appropriate and Passive Mood Description: Constricted Affect Description: Calm Patient Cognition Impaired: Yes Ability to Follow Directions: Good Speech Pattern: Clear and Impoverished Diagnostics Vital Signs (24Hr): Vital Signs - 24 hr 09/14/23 20:00 Temperature 97.1 F Pulse Rate 79 Respiratory Rate 18 Blood Pressure 141/66 H Pulse Oximetry 96 Oxygen Delivery Method Room Air BMI result Body Mass Index 20.7 Labs 07/29/23 08:35 Imaging Radiology Impressions: ITS Impressions Shoulder X-Ray 07/30/23 09:55 IMPRESSION: 1. No metallic foreign body. 2. Calcification adjacent to the humeral head likely on the basis of calcific tendinosis. Orbit X-Ray 07/30/23 11:07 IMPRESSION: 1. No unexpected radiopaque foreign bodies. 2. Clear lungs. 3. Nonobstructive bowel gas pattern. 4. Moderate to large degree of colonic stool burden. Brain MRI 07/30/23 20:40 IMPRESSION: No acute intracranial abnormality. No findings to suggest Wernicke encephalopathy. Hand X-Ray 08/26/23 09:05 IMPRESSION: No fracture seen. Medications Medications Current Medications Acetaminophen (Acetaminophen 325 Mg Tablet) 650 mg PO Q6H PRN PRN Reason: Headache/Pain (1-10) Last Admin: 09/15/23 00:05 Dose: 650 mg Al Hydroxide/Mg Hydroxide (Magnesium Hydrox/Alum Hydrox 30 Ml Oral.Susp) 30 ml PO Q6H PRN PRN Reason: Heartburn/Nausea Last Admin: 09/12/23 19:46 Dose: 30 ml Artificial Tears (Artificial Tears 15 Ml Drops) 1 drop EYE-BOTH Q4H PRN PRN Reason: Dry Eyes Last Admin: 09/14/23 15:52 Dose: 1 drop Brimonidine Tartrate (Brimonidine Tartrate 0.2% Oph 5 Ml Bottle) 1 drop EYE- BOTH TID [facility] Last Admin: 09/15/23 09:37 Dose: 1 drop Donepezil HCl (Donepezil Hcl 10 Mg Tablet) 10 mg PO BEDTIME [facility] Last Admin: 09/14/23 20:24 Dose: 10 mg Guaifenesin (Guaifenesin 200 Mg/10 Ml 10 Ml Liquid) 10 ml PO Q6H PRN PRN Reason: Cough Last Admin: 09/05/23 23:21 Dose: 10 ml Hydrocortisone (Hydrocortisone 1 % Cream 28.35 Gm Tube) 1 appl TOPICAL BID [facility]; Protocol Last Admin: 09/15/23 09:41 Dose: Not Given Lidocaine (Lidocaine 4 % Patch Adh..Patch) 2 patch TRANSDERMA DAILY PRN; Protocol PRN Reason: bilateral low back pain Last Admin: 09/13/23 21:01 Dose: 2 patch Magnesium Hydroxide (Milk Of Magnesia 30 Ml Oral.Susp) 30 ml PO DAILY PRN PRN Reason: Constipation Last Admin: 08/23/23 08:41 Dose: 30 ml Memantine (Memantine Hcl 10 Mg Tablet) 10 mg PO BID [facility] Last Admin: 09/15/23 09:36 Dose: 10 mg Quetiapine Fumarate (Quetiapine Fumarate 25 Mg Tablet) 25 mg PO BID PRN PRN Reason: anxiety/agitation Last Admin: 09/14/23 20:23 Dose: 25 mg Quetiapine Fumarate (Quetiapine Fumarate 25 Mg Tablet) 25 mg PO DAILY@1700 [facility] Last Admin: 09/14/23 18:15 Dose: 25 mg Quetiapine Fumarate (Quetiapine Fumarate 25 Mg Tablet) 12.5 mg PO BID@0830,1330 [facility] Last Admin: 09/15/23 09:36 Dose: 12.5 mg Quetiapine Fumarate (Quetiapine Fumarate 50 Mg Tablet) 50 mg PO BEDTIME [facility] Last Admin: 09/14/23 20:24 Dose: 50 mg Sumatriptan Succinate (Sumatriptan Succinate 50 Mg Tablet) 50 mg PO DAILY MRX1 PRN PRN Reason: Migraine Headache Last Admin: 09/01/23 04:20 Dose: 50 mg Thiamine HCl (Thiamine Hcl 100 Mg Tablet) 100 mg PO DAILY [facility] Last Admin: 09/15/23 09:36 Dose: 100 mg Trazodone HCl (Trazodone Hcl 50 Mg Tablet) 50 mg PO BEDTIME MRX1 PRN PRN Reason: Insomnia Last Admin: 09/15/23 00:06 Dose: 50 mg Allergies Allergies Allergy/AdvReac Type Severity Reaction Status Date / Time Sulfa (Sulfonamide Allergy Severe ANAPHYLAXIS Verified 08/25/23 23:13 Antibiotics) [SULFA (SULFONAMIDE ANTIBIOTICS)] mold Allergy Intermediate Shortness Verified 08/25/23 22:42 of Breath Assessment & Plan Assessment & Plan (1) Alcohol abuse with alcohol-induced mental disorder: Status: Acute Code(s): F10.188 - Alcohol abuse with other alcohol-induced disorder Plan The patient is a 78-year-old male with a past history of alcohol use disorder who was brought to the emergency room of another hospital for psychotic symptoms at the this moment currently denies. 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 Plan 1. Gather collateral information. We will try to contact his family and start working on proper diagnosis and treatment plan. 2. Continue with medications as prescribed. 3. We will continue with medical workout. 4. MRI without contrast done that showed no destruction of pulmonary by this. 5. 15 minute checks since the patient is able to contract for safety.. 6. Start Namenda 5 mg p.o. b.i.d. to target cognitive impairment due to dementia. 7. Even though that his dementia is advanced, we will start Aricept 5 mg p.o. q.h.s. in combination with Namenda since it can help on diminishing the progression of his cognitive impairment. On March 05 we increased Aricept to 10 mg p.o. q.h.s. the plan is to increase over the weekend to Namenda 10 mg p.o. b.i.d. 8. Waiting for placement. 9. Seroquel 25 mg p.o. at 17:00 to avoid . 10. Increase Seroquel up 12.5 p.o. b.i.d. on August 17. 11. Start tramadol p.r.n. [id number] pain on August 20. 12. On August 22 we are adding Seroquel 25 at bedtime. Total dose of Seroquel 75 mg a day 13. start Keflex 500 mg p.o. b.i.d. for cellulitis the cellulitis resolved. 09/06/2023 Continue discharge planning patient with recurrent memory disorder 09/07/2023 Continue plan of care discharge planning 09/07 B12,Folate Continue tx plan. 09/08 Continue tx. B12 405, Folate 10.4 09/09 Continue tx. 09/10 Artificial Tears ordered per pt request 09/11 Continue tx. 09/12 Pruritus resolved. Continue to monitor 09/13 Continue tx 09/14 continue tx. Reason for continued inpatient stay Substantial Risk for: inability to function Time Spent With Patient Time: Total time managing care of this patient today ____ minutes.
[2023-09-15] MEDS: Artificial Tears 15 ML DROPS 1 DROP EYE-BOTH (14:01)
[2023-09-15] MEDS: QUEtiapine Fumarate 25 MG TABLET PO ×2 (17:05→20:54)
[2023-09-15 20:00] VITALS: BP 153/75; PULSE 93; RESP 18; TEMP 36.2; O2SAT 95
[2023-09-15] MEDS: QUEtiapine Fumarate 50 MG TABLET PO (20:55)
[2023-09-15] MEDS: Donepezil HCl 10 MG TABLET PO (20:55)
[2023-09-16 07:55] VITALS: BP 132/68; PULSE 82; RESP 18; TEMP 36.8; O2SAT 97
[2023-09-16] MEDS: QUEtiapine Fumarate 25 MG TABLET 12.5 MG PO ×2 (08:30→14:16)
[2023-09-16] MEDS: Memantine HCl 10 MG TABLET PO ×2 (08:30→21:12)
[2023-09-16] MEDS: Thiamine HCL 100 MG TABLET PO (08:30)
[2023-09-16] MEDS: Brimonidine Tartrate 0.2% Oph 5 ML BOTTLE 1 DROP EYE-BOTH ×3 (08:36→21:35)
[2023-09-16] MEDS: QUEtiapine Fumarate 25 MG TABLET PO (16:29)
--- NOTE | 2023-09-16 17:00 | HO.PSYCHPN ---
Subjective Subjective Date of Service: 09/16/23 Reason For Visit: Adjustment disorder,w/mixed disturbance of emotion Subjective Notes: Conditional Voluntary Interim History: Pt slept all night. Severe anterograde amnesia, not remembering what the plan for discharge is nor discussion about dx of dementia. He presents as pleasant, attends groups. No behavioral concerns. He is taking medications as prescribed. Review of Systems Review of Systems Denies today Yes all other systems are reviewed and are negative Mental Status Exam Mental Status Exam Patient Appearance: Well Grooomed and Appropriate Patient Orientation: Person and Situation Level of Consciousness: Awake and Appropriate Patient Behavior: Appropriate and Passive Mood Description: Constricted Affect Description: Calm Patient Cognition Impaired: Yes Ability to Follow Directions: Good Speech Pattern: Clear and Impoverished Diagnostics Vital Signs (24Hr): Vital Signs - 24 hr 09/15/23 20:00 09/16/23 07:55 Temperature 97.1 F 98.3 F Pulse Rate 93 82 Respiratory Rate 18 18 Blood Pressure 153/75 H 132/68 Pulse Oximetry 95 97 Oxygen Delivery Method Room Air Room Air BMI result Body Mass Index 20.7 Labs 07/29/23 08:35 Imaging Radiology Impressions: ITS Impressions Shoulder X-Ray 07/30/23 09:55 IMPRESSION: 1. No metallic foreign body. 2. Calcification adjacent to the humeral head likely on the basis of calcific tendinosis. Orbit X-Ray 07/30/23 11:07 IMPRESSION: 1. No unexpected radiopaque foreign bodies. 2. Clear lungs. 3. Nonobstructive bowel gas pattern. 4. Moderate to large degree of colonic stool burden. Brain MRI 07/30/23 20:40 IMPRESSION: No acute intracranial abnormality. No findings to suggest Wernicke encephalopathy. Hand X-Ray 08/26/23 09:05 IMPRESSION: No fracture seen. Medications Medications Current Medications Acetaminophen (Acetaminophen 325 Mg Tablet) 650 mg PO Q6H PRN PRN Reason: Headache/Pain (1-10) Last Admin: 09/15/23 00:05 Dose: 650 mg Al Hydroxide/Mg Hydroxide (Magnesium Hydrox/Alum Hydrox 30 Ml Oral.Susp) 30 ml PO Q6H PRN PRN Reason: Heartburn/Nausea Last Admin: 09/12/23 19:46 Dose: 30 ml Artificial Tears (Artificial Tears 15 Ml Drops) 1 drop EYE-BOTH Q4H PRN PRN Reason: Dry Eyes Last Admin: 09/15/23 14:01 Dose: 1 drop Benzocaine (Throat Lozenge, Medicated Lozenge) 1 lozenge MUCOUS MEM Q4H PRN PRN Reason: Sore Throat Brimonidine Tartrate (Brimonidine Tartrate 0.2% Oph 5 Ml Bottle) 1 drop EYE-BOTH TID [facility] Last Admin: 09/16/23 14:21 Dose: 1 drop Donepezil HCl (Donepezil Hcl 10 Mg Tablet) 10 mg PO BEDTIME [facility] Last Admin: 09/15/23 20:55 Dose: 10 mg Guaifenesin (Guaifenesin 200 Mg/10 Ml 10 Ml Liquid) 10 ml PO Q6H PRN PRN Reason: Cough Last Admin: 09/05/23 23:21 Dose: 10 ml Hydrocortisone (Hydrocortisone 1 % Cream 28.35 Gm Tube) 1 appl TOPICAL BID [facility]; Protocol Last Admin: 09/16/23 08:31 Dose: Not Given Lidocaine (Lidocaine 4 % Patch Adh..Patch) 2 patch TRANSDERMA DAILY PRN; Protocol PRN Reason: bilateral low back pain Last Admin: 09/13/23 21:01 Dose: 2 patch Magnesium Hydroxide (Milk Of Magnesia 30 Ml Oral.Susp) 30 ml PO DAILY PRN PRN Reason: Constipation Last Admin: 08/23/23 08:41 Dose: 30 ml Memantine (Memantine Hcl 10 Mg Tablet) 10 mg PO BID [facility] Last Admin: 09/16/23 08:30 Dose: 10 mg Quetiapine Fumarate (Quetiapine Fumarate 25 Mg Tablet) 25 mg PO BID PRN PRN Reason: anxiety/agitation Last Admin: 09/15/23 20:54 Dose: 25 mg Quetiapine Fumarate (Quetiapine Fumarate 25 Mg Tablet) 25 mg PO DAILY@1700 [facility] Last Admin: 09/16/23 16:29 Dose: 25 mg Quetiapine Fumarate (Quetiapine Fumarate 25 Mg Tablet) 12.5 mg PO BID@0830,1330 [facility] Last Admin: 09/16/23 14:16 Dose: 12.5 mg Quetiapine Fumarate (Quetiapine Fumarate 50 Mg Tablet) 50 mg PO BEDTIME [facility] Last Admin: 09/15/23 20:55 Dose: 50 mg Sumatriptan Succinate (Sumatriptan Succinate 50 Mg Tablet) 50 mg PO DAILY MRX1 PRN PRN Reason: Migraine Headache Last Admin: 09/01/23 04:20 Dose: 50 mg Thiamine HCl (Thiamine Hcl 100 Mg Tablet) 100 mg PO DAILY [facility] Last Admin: 09/16/23 08:30 Dose: 100 mg Trazodone HCl (Trazodone Hcl 50 Mg Tablet) 50 mg PO BEDTIME MRX1 PRN PRN Reason: Insomnia Last Admin: 09/15/23 20:55 Dose: 50 mg Allergies Allergies Allergy/AdvReac Type Severity Reaction Status Date / Time Sulfa (Sulfonamide Allergy Severe ANAPHYLAXIS Verified 08/25/23 23:13 Antibiotics) [SULFA (SULFONAMIDE ANTIBIOTICS)] mold Allergy Intermediate Shortness Verified 08/25/23 22:42 of Breath Assessment & Plan Assessment & Plan (1) Alcohol abuse with alcohol-induced mental disorder: Status: Acute Code(s): F10.188 - Alcohol abuse with other alcohol-induced disorder Plan The patient is a 78-year-old male with a past history of alcohol use disorder who was brought to the emergency room of another hospital for psychotic symptoms at the this moment currently denies. 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 Plan 1. Gather collateral information. We will try to contact his family and start working on proper diagnosis and treatment plan. 2. Continue with medications as prescribed. 3. We will continue with medical workout. 4. MRI without contrast done that showed no destruction of pulmonary by this. 5. 15 minute checks since the patient is able to contract for safety.. 6. Start Namenda 5 mg p.o. b.i.d. to target cognitive impairment due to dementia. 7. Even though that his dementia is advanced, we will start Aricept 5 mg p.o. q.h.s. in combination with Namenda since it can help on diminishing the progression of his cognitive impairment. On March 05 we increased Aricept to 10 mg p.o. q.h.s. the plan is to increase over the weekend to Namenda 10 mg p.o. b.i.d. 8. Waiting for placement. 9. Seroquel 25 mg p.o. at 17:00 to avoid owning. 10. Increase Seroquel up 12.5 p.o. b.i.d. on August 17. 11. Start tramadol p.r.n. [id number] pain on August 20. 12. On August 22 we are adding Seroquel 25 at bedtime. Total dose of Seroquel 75 mg a day 13. start Keflex 500 mg p.o. b.i.d. for cellulitis the cellulitis resolved. 09/06/2023 Continue discharge planning patient with recurrent memory disorder 09/07/2023 Continue plan of care discharge planning 09/07 B12,Folate Continue tx plan. 09/08 Continue tx. B12 405, Folate 10.4 09/09 Continue tx. 09/10 Artificial Tears ordered per pt request 09/11 Continue tx. 09/12 Pruritus resolved. Continue to monitor 09/13 Continue tx 09/14 continue tx 09/15 continue tx. Reason for continued inpatient stay Substantial Risk for: inability to function Time Spent With Patient Time: Total time managing care of this patient today ____ minutes.
[2023-09-16 20:00] VITALS: BP 124/62; PULSE 90; RESP 18; TEMP 36.9; O2SAT 97
[2023-09-16] MEDS: Donepezil HCl 10 MG TABLET PO (21:12)
[2023-09-16] MEDS: QUEtiapine Fumarate 50 MG TABLET PO (21:12)
[2023-09-17 07:50] VITALS: BP 140/70; PULSE 76; RESP 20; TEMP 36.6; O2SAT 96
[2023-09-17] MEDS: Memantine HCl 10 MG TABLET PO ×2 (08:01→20:56)
[2023-09-17] MEDS: Thiamine HCL 100 MG TABLET PO (08:01)
[2023-09-17] MEDS: QUEtiapine Fumarate 25 MG TABLET 12.5 MG PO ×2 (08:02→13:34)
[2023-09-17] MEDS: Brimonidine Tartrate 0.2% Oph 5 ML BOTTLE 1 DROP EYE-BOTH ×3 (08:39→20:56)
--- NOTE | 2023-09-17 09:25 | HO.PSYCHPN ---
Subjective Subjective Date of Service: 09/17/23 Reason For Visit: Adjustment disorder,w/mixed disturbance of emotion Interim History: Pt slept all night. Severe anterograde amnesia, not remembering what the plan for discharge is nor discussion about dx of dementia. He presents as pleasant, attends groups. No behavioral concerns. He is taking medications as prescribed. Review of Systems Review of Systems Denies today Yes all other systems are reviewed and are negative Mental Status Exam Mental Status Exam Patient Appearance: Well Grooomed and Appropriate Patient Orientation: Person and Situation Level of Consciousness: Awake and Appropriate Patient Behavior: Appropriate and Passive Mood Description: Constricted Affect Description: Calm Patient Cognition Impaired: Yes Ability to Follow Directions: Good Speech Pattern: Clear and Impoverished Diagnostics Vital Signs (24Hr): Vital Signs - 24 hr 09/16/23 20:00 09/17/23 07:50 Temperature 98.5 F 97.9 F Pulse Rate 90 76 Respiratory Rate 18 20 Blood Pressure 124/62 140/70 H Pulse Oximetry 97 96 Oxygen Delivery Method Room Air Room Air BMI result Body Mass Index 20.7 Labs 07/29/23 08:35 Imaging Radiology Impressions: ITS Impressions Shoulder X-Ray 07/30/23 09:55 IMPRESSION: 1. No metallic foreign body. 2. Calcification adjacent to the humeral head likely on the basis of calcific tendinosis. Orbit X-Ray 07/30/23 11:07 IMPRESSION: 1. No unexpected radiopaque foreign bodies. 2. Clear lungs. 3. Nonobstructive bowel gas pattern. 4. Moderate to large degree of colonic stool burden. Brain MRI 07/30/23 20:40 IMPRESSION: No acute intracranial abnormality. No findings to suggest Wernicke encephalopathy. Hand X-Ray 08/26/23 09:05 IMPRESSION: No fracture seen. Medications Medications Current Medications Acetaminophen (Acetaminophen 325 Mg Tablet) 650 mg PO Q6H PRN PRN Reason: Headache/Pain (1-10) Last Admin: 09/15/23 00:05 Dose: 650 mg Al Hydroxide/Mg Hydroxide (Magnesium Hydrox/Alum Hydrox 30 Ml Oral.Susp) 30 ml PO Q6H PRN PRN Reason: Heartburn/Nausea Last Admin: 09/12/23 19:46 Dose: 30 ml Artificial Tears (Artificial Tears 15 Ml Drops) 1 drop EYE-BOTH Q4H PRN PRN Reason: Dry Eyes Last Admin: 09/15/23 14:01 Dose: 1 drop Benzocaine (Throat Lozenge, Medicated Lozenge) 1 lozenge MUCOUS MEM Q4H PRN PRN Reason: Sore Throat Brimonidine Tartrate (Brimonidine Tartrate 0.2% Oph 5 Ml Bottle) 1 drop EYE-BOTH TID [facility] Last Admin: 09/17/23 08:39 Dose: 1 drop Donepezil HCl (Donepezil Hcl 10 Mg Tablet) 10 mg PO BEDTIME [facility] Last Admin: 09/16/23 21:12 Dose: 10 mg Guaifenesin (Guaifenesin 200 Mg/10 Ml 10 Ml Liquid) 10 ml PO Q6H PRN PRN Reason: Cough Last Admin: 09/05/23 23:21 Dose: 10 ml Hydrocortisone (Hydrocortisone 1 % Cream 28.35 Gm Tube) 1 appl TOPICAL BID [facility]; Protocol Last Admin: 09/17/23 08:23 Dose: Not Given Lidocaine (Lidocaine 4 % Patch Adh..Patch) 2 patch TRANSDERMA DAILY PRN; Protocol PRN Reason: bilateral low back pain Last Admin: 09/13/23 21:01 Dose: 2 patch Magnesium Hydroxide (Milk Of Magnesia 30 Ml Oral.Susp) 30 ml PO DAILY PRN PRN Reason: Constipation Last Admin: 08/23/23 08:41 Dose: 30 ml Memantine (Memantine Hcl 10 Mg Tablet) 10 mg PO BID [facility] Last Admin: 09/17/23 08:01 Dose: 10 mg Quetiapine Fumarate (Quetiapine Fumarate 25 Mg Tablet) 25 mg PO BID PRN PRN Reason: anxiety/agitation Last Admin: 09/15/23 20:54 Dose: 25 mg Quetiapine Fumarate (Quetiapine Fumarate 25 Mg Tablet) 25 mg PO DAILY@1700 [facility] Last Admin: 09/16/23 16:29 Dose: 25 mg Quetiapine Fumarate (Quetiapine Fumarate 25 Mg Tablet) 12.5 mg PO BID@0830,1330 [facility] Last Admin: 09/17/23 08:02 Dose: 12.5 mg Quetiapine Fumarate (Quetiapine Fumarate 50 Mg Tablet) 50 mg PO BEDTIME [facility] Last Admin: 09/16/23 21:12 Dose: 50 mg Sumatriptan Succinate (Sumatriptan Succinate 50 Mg Tablet) 50 mg PO DAILY MRX1 PRN PRN Reason: Migraine Headache Last Admin: 09/01/23 04:20 Dose: 50 mg Thiamine HCl (Thiamine Hcl 100 Mg Tablet) 100 mg PO DAILY [facility] Last Admin: 09/17/23 08:01 Dose: 100 mg Trazodone HCl (Trazodone Hcl 50 Mg Tablet) 50 mg PO BEDTIME MRX1 PRN PRN Reason: Insomnia Last Admin: 09/15/23 20:55 Dose: 50 mg Allergies Allergies Allergy/AdvReac Type Severity Reaction Status Date / Time Sulfa (Sulfonamide Allergy Severe ANAPHYLAXIS Verified 08/25/23 23:13 Antibiotics) [SULFA (SULFONAMIDE ANTIBIOTICS)] mold Allergy Intermediate Shortness Verified 08/25/23 22:42 of Breath Assessment & Plan Assessment & Plan (1) Alcohol abuse with alcohol-induced mental disorder: Status: Acute Code(s): F10.188 - Alcohol abuse with other alcohol-induced disorder Plan The patient is a 78-year-old male with a past history of alcohol use disorder who was brought to the emergency room of another hospital for psychotic symptoms at the this moment currently denies. 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 Plan 1. Gather collateral information. We will try to contact his family and start working on proper diagnosis and treatment plan. 2. Continue with medications as prescribed. 3. We will continue with medical workout. 4. MRI without contrast done that showed no destruction of pulmonary by this. 5. 15 minute checks since the patient is able to contract for safety.. 6. Start Namenda 5 mg p.o. b.i.d. to target cognitive impairment due to dementia. 7. Even though that his dementia is advanced, we will start Aricept 5 mg p.o. q.h.s. in combination with Namenda since it can help on diminishing the progression of his cognitive impairment. On March 05 we increased Aricept to 10 mg p.o. q.h.s. the plan is to increase over the weekend to Namenda 10 mg p.o. b.i.d. 8. Waiting for placement. 9. Seroquel 25 mg p.o. at 17:00 to avoid ing. 10. Increase Seroquel up 12.5 p.o. b.i.d. on August 17. 11. Start tramadol p.r.n. [id number] pain on August 20. 12. On August 22 we are adding Seroquel 25 at bedtime. Total dose of Seroquel 75 mg a day 13. start Keflex 500 mg p.o. b.i.d. for cellulitis the cellulitis resolved. 09/06/2023 Continue discharge planning patient with recurrent memory disorder 09/07/2023 Continue plan of care discharge planning 09/07 B12,Folate Continue tx plan. 09/08 Continue tx. B12 405, Folate 10.4 09/09 Continue tx. 09/10 Artificial Tears ordered per pt request 09/11 Continue tx. 09/12 Pruritus resolved. Continue to monitor 09/13 Continue tx 09/14 continue tx 09/16 continue tx. Reason for continued inpatient stay Substantial Risk for: inability to function Time Spent With Patient Time: Total time managing care of this patient today ____ minutes.
[2023-09-17] MEDS: Acetaminophen 325 MG TABLET 650 MG PO (14:12)
[2023-09-17] MEDS: QUEtiapine Fumarate 25 MG TABLET PO ×2 (17:14→23:09)
[2023-09-17 20:00] VITALS: BP 139/74; PULSE 79; RESP 18; TEMP 36.5; O2SAT 96
[2023-09-17] MEDS: traZODone HCL 50 MG TABLET PO ×2 (20:56→23:09)
[2023-09-17] MEDS: Donepezil HCl 10 MG TABLET PO (20:56)
[2023-09-17] MEDS: QUEtiapine Fumarate 50 MG TABLET PO (20:56)
[2023-09-18 07:00] VITALS: BMI 22.1
[2023-09-18 08:00] VITALS: BP 142/63; PULSE 82; RESP 18; TEMP 36.8; O2SAT 95
[2023-09-18] MEDS: Memantine HCl 10 MG TABLET PO ×2 (08:27→20:40)
[2023-09-18] MEDS: Brimonidine Tartrate 0.2% Oph 5 ML BOTTLE 1 DROP EYE-BOTH ×3 (08:27→20:40)
[2023-09-18] MEDS: QUEtiapine Fumarate 25 MG TABLET 12.5 MG PO ×2 (08:27→14:00)
[2023-09-18] MEDS: Thiamine HCL 100 MG TABLET PO (08:27)
--- NOTE | 2023-09-18 11:33 | HO.PSYCHPN ---
Subjective Subjective Date of Service: 09/18/23 Reason For Visit: Adjustment disorder,w/mixed disturbance of emotion Subjective Notes: Conditional Voluntary Interim History: Pt slept all night. Severe anterograde amnesia, not remembering what the plan for discharge is nor discussion about dx of dementia. He presents as pleasant, attends groups. No behavioral concerns. He is taking medications as prescribed. He is social with select peers. eating well. taking meds. VS stable. Review of Systems Review of Systems Denies today Yes all other systems are reviewed and are negative Mental Status Exam Mental Status Exam Patient Appearance: Well Grooomed and Appropriate Patient Orientation: Person and Situation Level of Consciousness: Awake and Appropriate Patient Behavior: Appropriate and Passive Mood Description: Constricted Affect Description: Calm Patient Cognition Impaired: Yes Ability to Follow Directions: Good Speech Pattern: Clear and Impoverished Diagnostics Vital Signs (24Hr): Vital Signs - 24 hr 09/17/23 20:00 09/18/23 08:00 Temperature 97.7 F 98.3 F Pulse Rate 79 82 Respiratory Rate 18 18 Blood Pressure 139/74 142/63 H Pulse Oximetry 96 95 Oxygen Delivery Method Room Air Room Air BMI result Body Mass Index 22.1 Labs 07/29/23 08:35 Imaging Radiology Impressions: ITS Impressions Shoulder X-Ray 07/30/23 09:55 IMPRESSION: 1. No metallic foreign body. 2. Calcification adjacent to the humeral head likely on the basis of calcific tendinosis. Orbit X-Ray 07/30/23 11:07 IMPRESSION: 1. No unexpected radiopaque foreign bodies. 2. Clear lungs. 3. Nonobstructive bowel gas pattern. 4. Moderate to large degree of colonic stool burden. Brain MRI 07/30/23 20:40 IMPRESSION: No acute intracranial abnormality. No findings to suggest Wernicke encephalopathy. Hand X-Ray 08/26/23 09:05 IMPRESSION: No fracture seen. Medications Medications Current Medications Acetaminophen (Acetaminophen 325 Mg Tablet) 650 mg PO Q6H PRN PRN Reason: Headache/Pain (1-10) Last Admin: 09/17/23 14:12 Dose: 650 mg Al Hydroxide/Mg Hydroxide (Magnesium Hydrox/Alum Hydrox 30 Ml Oral.Susp) 30 ml PO Q6H PRN PRN Reason: Heartburn/Nausea Last Admin: 09/12/23 19:46 Dose: 30 ml Artificial Tears (Artificial Tears 15 Ml Drops) 1 drop EYE-BOTH Q4H PRN PRN Reason: Dry Eyes Last Admin: 09/15/23 14:01 Dose: 1 drop Benzocaine (Throat Lozenge, Medicated Lozenge) 1 lozenge MUCOUS MEM Q4H PRN PRN Reason: Sore Throat Brimonidine Tartrate (Brimonidine Tartrate 0.2% Oph 5 Ml Bottle) 1 drop EYE-BOTH TID [facility] Last Admin: 09/18/23 08:27 Dose: 1 drop Donepezil HCl (Donepezil Hcl 10 Mg Tablet) 10 mg PO BEDTIME [facility] Last Admin: 09/17/23 20:56 Dose: 10 mg Guaifenesin (Guaifenesin 200 Mg/10 Ml 10 Ml Liquid) 10 ml PO Q6H PRN PRN Reason: Cough Last Admin: 09/05/23 23:21 Dose: 10 ml Hydrocortisone (Hydrocortisone 1 % Cream 28.35 Gm Tube) 1 appl TOPICAL BID [facility]; Protocol Last Admin: 09/18/23 08:27 Dose: Not Given Lidocaine (Lidocaine 4 % Patch Adh..Patch) 2 patch TRANSDERMA DAILY PRN; Protocol PRN Reason: bilateral low back pain Last Admin: 09/13/23 21:01 Dose: 2 patch Magnesium Hydroxide (Milk Of Magnesia 30 Ml Oral.Susp) 30 ml PO DAILY PRN PRN Reason: Constipation Last Admin: 08/23/23 08:41 Dose: 30 ml Memantine (Memantine Hcl 10 Mg Tablet) 10 mg PO BID [facility] Last Admin: 09/18/23 08:27 Dose: 10 mg Quetiapine Fumarate (Quetiapine Fumarate 25 Mg Tablet) 25 mg PO BID PRN PRN Reason: anxiety/agitation Last Admin: 09/17/23 23:09 Dose: 25 mg Quetiapine Fumarate (Quetiapine Fumarate 25 Mg Tablet) 25 mg PO DAILY@1700 [facility] Last Admin: 09/17/23 17:14 Dose: 25 mg Quetiapine Fumarate (Quetiapine Fumarate 25 Mg Tablet) 12.5 mg PO BID@0830,1330 [facility] Last Admin: 09/18/23 08:27 Dose: 12.5 mg Quetiapine Fumarate (Quetiapine Fumarate 50 Mg Tablet) 50 mg PO BEDTIME [facility] Last Admin: 09/17/23 20:56 Dose: 50 mg Sumatriptan Succinate (Sumatriptan Succinate 50 Mg Tablet) 50 mg PO DAILY MRX1 PRN PRN Reason: Migraine Headache Last Admin: 09/01/23 04:20 Dose: 50 mg Thiamine HCl (Thiamine Hcl 100 Mg Tablet) 100 mg PO DAILY [facility] Last Admin: 09/18/23 08:27 Dose: 100 mg Trazodone HCl (Trazodone Hcl 50 Mg Tablet) 50 mg PO BEDTIME MRX1 PRN PRN Reason: Insomnia Last Admin: 09/17/23 23:09 Dose: 50 mg Allergies Allergies Allergy/AdvReac Type Severity Reaction Status Date / Time Sulfa (Sulfonamide Allergy Severe ANAPHYLAXIS Verified 08/25/23 23:13 Antibiotics) [SULFA (SULFONAMIDE ANTIBIOTICS)] mold Allergy Intermediate Shortness Verified 08/25/23 22:42 of Breath Assessment & Plan Assessment & Plan (1) Alcohol abuse with alcohol-induced mental disorder: Status: Acute Code(s): F10.188 - Alcohol abuse with other alcohol-induced disorder Plan The patient is a 78-year-old male with a past history of alcohol use disorder who was brought to the emergency room of another hospital for psychotic symptoms at the this moment currently denies. 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 Plan 1. Gather collateral information. We will try to contact his family and start working on proper diagnosis and treatment plan. 2. Continue with medications as prescribed. 3. We will continue with medical workout. 4. MRI without contrast done that showed no destruction of pulmonary by this. 5. 15 minute checks since the patient is able to contract for safety.. 6. Start Namenda 5 mg p.o. b.i.d. to target cognitive impairment due to dementia. 7. Even though that his dementia is advanced, we will start Aricept 5 mg p.o. q.h.s. in combination with Namenda since it can help on diminishing the progression of his cognitive impairment. On March 05 we increased Aricept to 10 mg p.o. q.h.s. the plan is to increase over the weekend to Namenda 10 mg p.o. b.i.d. 8. Waiting for placement. 9. Seroquel 25 mg p.o. at 17:00 to avoid ing. 10. Increase Seroquel up 12.5 p.o. b.i.d. on August 17. Start tramadol p.r.n. [id number] pain on August 20. . On August 22 we are adding Seroquel 25 at bedtime. Total dose of Seroquel 75 mg a day 13. start Keflex 500 mg p.o. b.i.d. for cellulitis the cellulitis resolved. 09/06/2023 Continue discharge planning patient with recurrent memory disorder 09/07/2023 Continue plan of care discharge planning 09/07 B12,Folate Continue tx plan. 09/08 Continue tx. B12 405, Folate 10.4 09/09 Continue tx. 09/10 Artificial Tears ordered per pt request 09/11 Continue tx. 09/12 Pruritus resolved. Continue to monitor 09/13 Continue tx 09/14 continue tx 09/15 continue tx. 09/17 continue tx. awaiting placement Reason for continued inpatient stay Substantial Risk for: inability to function Time Spent With Patient Time: Total time managing care of this patient today ____ minutes.
[2023-09-18] MEDS: QUEtiapine Fumarate 25 MG TABLET PO ×2 (16:42→22:05)
[2023-09-18 20:00] VITALS: BP 142/74; PULSE 82; RESP 18; TEMP 36.7; O2SAT 96
[2023-09-18] MEDS: Donepezil HCl 10 MG TABLET PO (20:40)
[2023-09-18] MEDS: QUEtiapine Fumarate 50 MG TABLET PO (20:40)
[2023-09-18] MEDS: traZODone HCL 50 MG TABLET PO ×2 (20:41→22:06)
[2023-09-19 08:00] VITALS: BP 121/64; PULSE 80; RESP 17; TEMP 36.8; O2SAT 94
[2023-09-19] MEDS: Memantine HCl 10 MG TABLET PO ×2 (08:29→20:55)
[2023-09-19] MEDS: Thiamine HCL 100 MG TABLET PO (08:29)
[2023-09-19] MEDS: QUEtiapine Fumarate 25 MG TABLET 12.5 MG PO ×2 (08:29→13:37)
[2023-09-19] MEDS: Brimonidine Tartrate 0.2% Oph 5 ML BOTTLE 1 DROP EYE-BOTH ×3 (08:29→20:54)
[2023-09-19] MEDS: SUMAtriptan succinate 50 MG TABLET PO (14:49)
--- NOTE | 2023-09-19 15:15 | HO.PSYCHPN ---
Subjective Subjective Date of Service: 09/19/23 Reason For Visit: Adjustment disorder,w/mixed disturbance of emotion Subjective Notes: Conditional Voluntary Interim History: The nursing staff reported the patient remains pleasantly confused anxious at times easily redirectable. On interview the patient was requesting about being discharged but later on he forgot why he was here. No changes in mental status, waiting for placement Mental Status Exam Mental Status Exam Patient Appearance: Appropriate Patient Orientation: Person and Situation Level of Consciousness: Awake and Appropriate Patient Behavior: Guarded and Passive Mood Description: Withdrawn Affect Description: Constricted Patient Cognition Impaired: Yes Ability to Follow Directions: Good Speech Pattern: Clear Hallucinations: None Delusions: Not Present Thought Process: Distracted and Evasive Thought Content: positive for [place] and positive for Poverty of Content Judgement: Poor Diagnostics Vital Signs (24Hr): Vital Signs - 24 hr 09/18/23 20:00 09/19/23 08:00 Temperature 98.1 F 98.2 F Pulse Rate 82 80 Respiratory Rate 18 17 Blood Pressure 142/74 H 121/64 Pulse Oximetry 96 94 Oxygen Delivery Method Room Air Room Air BMI result Body Mass Index 22.1 Labs 07/29/23 08:35 Imaging Radiology Impressions: ITS Impressions Shoulder X-Ray 07/30/23 09:55 IMPRESSION: 1. No metallic foreign body. 2. Calcification adjacent to the humeral head likely on the basis of calcific tendinosis. Orbit X-Ray 07/30/23 11:07 IMPRESSION: 1. No unexpected radiopaque foreign bodies. 2. Clear lungs. 3. Nonobstructive bowel gas pattern. 4. Moderate to large degree of colonic stool burden. Brain MRI 07/30/23 20:40 IMPRESSION: No acute intracranial abnormality. No findings to suggest Wernicke encephalopathy. Hand X-Ray 08/26/23 09:05 IMPRESSION: No fracture seen. Medications Medications Current Medications Acetaminophen (Acetaminophen 325 Mg Tablet) 650 mg PO Q6H PRN PRN Reason: Headache/Pain (1-10) Last Admin: 09/17/23 14:12 Dose: 650 mg Al Hydroxide/Mg Hydroxide (Magnesium Hydrox/Alum Hydrox 30 Ml Oral.Susp) 30 ml PO Q6H PRN PRN Reason: Heartburn/Nausea Last Admin: 09/12/23 19:46 Dose: 30 ml Artificial Tears (Artificial Tears 15 Ml Drops) 1 drop EYE-BOTH Q4H PRN PRN Reason: Dry Eyes Last Admin: 09/15/23 14:01 Dose: 1 drop Benzocaine (Throat Lozenge, Medicated Lozenge) 1 lozenge MUCOUS MEM Q4H PRN PRN Reason: Sore Throat Brimonidine Tartrate (Brimonidine Tartrate 0.2% Oph 5 Ml Bottle) 1 drop EYE-BOTH TID [facility] Last Admin: 09/19/23 14:49 Dose: 1 drop Donepezil HCl (Donepezil Hcl 10 Mg Tablet) 10 mg PO BEDTIME [facility] Last Admin: 09/18/23 20:40 Dose: 10 mg Guaifenesin (Guaifenesin 200 Mg/10 Ml 10 Ml Liquid) 10 ml PO Q6H PRN PRN Reason: Cough Last Admin: 09/05/23 23:21 Dose: 10 ml Hydrocortisone (Hydrocortisone 1 % Cream 28.35 Gm Tube) 1 appl TOPICAL BID [facility]; Protocol Last Admin: 09/19/23 08:29 Dose: Not Given Lidocaine (Lidocaine 4 % Patch Adh..Patch) 2 patch TRANSDERMA DAILY PRN; Protocol PRN Reason: bilateral low back pain Last Admin: 09/13/23 21:01 Dose: 2 patch Magnesium Hydroxide (Milk Of Magnesia 30 Ml Oral.Susp) 30 ml PO DAILY PRN PRN Reason: Constipation Last Admin: 08/23/23 08:41 Dose: 30 ml Memantine (Memantine Hcl 10 Mg Tablet) 10 mg PO BID [facility] Last Admin: 09/19/23 08:29 Dose: 10 mg Quetiapine Fumarate (Quetiapine Fumarate 25 Mg Tablet) 25 mg PO BID PRN PRN Reason: anxiety/agitation Last Admin: 09/18/23 22:05 Dose: 25 mg Quetiapine Fumarate (Quetiapine Fumarate 25 Mg Tablet) 25 mg PO DAILY@1700 [facility] Last Admin: 09/18/23 16:42 Dose: 25 mg Quetiapine Fumarate (Quetiapine Fumarate 25 Mg Tablet) 12.5 mg PO BID@0830,1330 [facility] Last Admin: 09/19/23 13:37 Dose: 12.5 mg Quetiapine Fumarate (Quetiapine Fumarate 50 Mg Tablet) 50 mg PO BEDTIME [facility] Last Admin: 09/18/23 20:40 Dose: 50 mg Sumatriptan Succinate (Sumatriptan Succinate 50 Mg Tablet) 50 mg PO DAILY MRX1 PRN PRN Reason: Migraine Headache Last Admin: 09/19/23 14:49 Dose: 50 mg Thiamine HCl (Thiamine Hcl 100 Mg Tablet) 100 mg PO DAILY [facility] Last Admin: 09/19/23 08:29 Dose: 100 mg Trazodone HCl (Trazodone Hcl 50 Mg Tablet) 50 mg PO BEDTIME MRX1 PRN PRN Reason: Insomnia Last Admin: 09/18/23 22:06 Dose: 50 mg Allergies Allergies Allergy/AdvReac Type Severity Reaction Status Date / Time Sulfa (Sulfonamide Allergy Severe ANAPHYLAXIS Verified 08/25/23 23:13 Antibiotics) [SULFA (SULFONAMIDE ANTIBIOTICS)] mold Allergy Intermediate Shortness Verified 08/25/23 22:42 of Breath Assessment & Plan Assessment & Plan (1) Alcohol abuse with alcohol-induced mental disorder: Status: Acute Code(s): F10.188 - Alcohol abuse with other alcohol-induced disorder Plan The patient is a 78-year-old male with a past history of alcohol use disorder who was brought to the emergency room of another hospital for psychotic symptoms at the this moment currently denies. 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 Plan 1. Gather collateral information. We will try to contact his family and start working on proper diagnosis and treatment plan. 2. Continue with medications as prescribed. 3. We will continue with medical workout. 4. MRI without contrast done that showed no destruction of pulmonary by this. 5. 15 minute checks since the patient is able to contract for safety.. 6. Start Namenda 5 mg p.o. b.i.d. to target cognitive impairment due to dementia. 7. Even though that his dementia is advanced, we will start Aricept 5 mg p.o. q.h.s. in combination with Namenda since it can help on diminishing the progression of his cognitive impairment. On March 05 we increased Aricept to 10 mg p.o. q.h.s. the plan is to increase over the weekend to Namenda 10 mg p.o. b.i.d. 8. Waiting for placement. 9. Seroquel 25 mg p.o. at 17:00 to avoid ing. 10. Increase Seroquel up 12.5 p.o. b.i.d. on [place] 24. 11. Start tramadol p.r.n. [id number] pain on August 20. On August 22 we are adding Seroquel 25 at bedtime. Total dose of Seroquel 75 mg a day 13. start Keflex 500 mg p.o. b.i.d. for cellulitis the cellulitis resolved. Reason for continued inpatient stay Substantial Risk for: inability to function, rapid decompensation and med/psych decompensation Time Spent With Patient Time: Total time managing care of this patient today __20__ minutes.
[2023-09-19] MEDS: QUEtiapine Fumarate 25 MG TABLET PO ×2 (17:26→20:54)
[2023-09-19 20:00] VITALS: BP 146/88; PULSE 83; RESP 16; TEMP 37.2; O2SAT 96
[2023-09-19] MEDS: QUEtiapine Fumarate 50 MG TABLET PO (20:54)
[2023-09-19] MEDS: traZODone HCL 50 MG TABLET PO (20:54)
[2023-09-19] MEDS: Donepezil HCl 10 MG TABLET PO (20:55)
[2023-09-20 08:00] VITALS: BP 135/65; PULSE 71; RESP 16; TEMP 36.8; O2SAT 97
[2023-09-20] MEDS: QUEtiapine Fumarate 25 MG TABLET 12.5 MG PO ×2 (08:54→13:13)
[2023-09-20] MEDS: Thiamine HCL 100 MG TABLET PO (08:55)
[2023-09-20] MEDS: Memantine HCl 10 MG TABLET PO ×2 (08:55→20:48)
[2023-09-20] MEDS: Artificial Tears 15 ML DROPS 1 DROP EYE-BOTH (08:56)
[2023-09-20] MEDS: Brimonidine Tartrate 0.2% Oph 5 ML BOTTLE 1 DROP EYE-BOTH ×3 (08:59→20:49)
[2023-09-20] MEDS: QUEtiapine Fumarate 25 MG TABLET PO ×2 (15:59→20:47)
--- NOTE | 2023-09-20 18:32 | P.PNPSI_ITS ---
Subjective Subjective Date of Service: 09/20/23 Reason For Visit: Adjustment disorder,w/mixed disturbance of emotion Interim History: Met with patient; discussed with team Patient says that he is fine and waiting to go home. He says he is very capable of taking care of himself and wants to go home and do so. Patient repeats this refrain and asks when this will happen. He shared a say he does not want to go anywhere other than home, does not want to go to any kind of nursing facility. 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 About 10 minutes later, patient asked the nurse when he was going to see the doctor and did not remember our conversation Mental Status Exam Mental Status Exam Patient Appearance: Appropriate Patient Orientation: Person and Place Level of Consciousness: Awake and Appropriate Patient Behavior: Cooperative (but irritable) and Good Eye Contact Mood Description: Constricted Affect Description: Constricted Patient Cognition Impaired: Yes Ability to Follow Directions: Good Speech Pattern: Clear Memory Description: Recent Impaired Hallucinations: None Delusions: Not Present Thought Process: Distracted and Goal Oriented Thought Content: positive for [place], positive for Per[place] and positive for Poverty of Content Judgement: Poor Diagnostics Vital Signs (24Hr): Vital Signs - 24 hr 09/19/23 20:00 09/20/23 08:00 Temperature 99 F 98.2 F Pulse Rate 83 71 Respiratory Rate 16 16 Blood Pressure 146/88 H 135/65 Pulse Oximetry 96 97 Oxygen Delivery Method Room Air Room Air BMI result Body Mass Index 22.1 Labs 07/29/23 08:35 Imaging Radiology Impressions: ITS Impressions Shoulder X-Ray 07/30/23 09:55 IMPRESSION: 1. No metallic foreign body. 2. Calcification adjacent to the humeral head likely on the basis of calcific tendinosis. Orbit X-Ray 07/30/23 11:07 IMPRESSION: 1. No unexpected radiopaque foreign bodies. 2. Clear lungs. 3. Nonobstructive bowel gas pattern. 4. Moderate to large degree of colonic stool burden. Brain MRI 07/30/23 20:40 IMPRESSION: No acute intracranial abnormality. No findings to suggest Wernicke encephalopathy. Hand X-Ray 08/26/23 09:05 IMPRESSION: No fracture seen. Medications Medications Current Medications Acetaminophen (Acetaminophen 325 Mg Tablet) 650 mg PO Q6H PRN PRN Reason: Headache/Pain (1-10) Last Admin: 09/17/23 14:12 Dose: 650 mg Al Hydroxide/Mg Hydroxide (Magnesium Hydrox/Alum Hydrox 30 Ml Oral.Susp) 30 ml PO Q6H PRN PRN Reason: Heartburn/Nausea Last Admin: 09/12/23 19:46 Dose: 30 ml Artificial Tears (Artificial Tears 15 Ml Drops) 1 drop EYE-BOTH Q4H PRN PRN Reason: Dry Eyes Last Admin: 09/20/23 08:56 Dose: 1 drop Benzocaine (Throat Lozenge, Medicated Lozenge) 1 lozenge MUCOUS MEM Q4H PRN PRN Reason: Sore Throat Brimonidine Tartrate (Brimonidine Tartrate 0.2% Oph 5 Ml Bottle) 1 drop EYE- BOTH TID [facility] Last Admin: 09/20/23 15:59 Dose: 1 drop Donepezil HCl (Donepezil Hcl 10 Mg Tablet) 10 mg PO BEDTIME [facility] Last Admin: 09/19/23 20:55 Dose: 10 mg Guaifenesin (Guaifenesin 200 Mg/10 Ml 10 Ml Liquid) 10 ml PO Q6H PRN PRN Reason: Cough Last Admin: 09/05/23 23:21 Dose: 10 ml Hydrocortisone (Hydrocortisone 1 % Cream 28.35 Gm Tube) 1 appl TOPICAL BID [facility]; Protocol Last Admin: 09/20/23 08:56 Dose: 1 appl Lidocaine (Lidocaine 4 % Patch Adh..Patch) 2 patch TRANSDERMA DAILY PRN; Protocol PRN Reason: bilateral low back pain Last Admin: 09/13/23 21:01 Dose: 2 patch Magnesium Hydroxide (Milk Of Magnesia 30 Ml Oral.Susp) 30 ml PO DAILY PRN PRN Reason: Constipation Last Admin: 08/23/23 08:41 Dose: 30 ml Memantine (Memantine Hcl 10 Mg Tablet) 10 mg PO BID [facility] Last Admin: 09/20/23 08:55 Dose: 10 mg Quetiapine Fumarate (Quetiapine Fumarate 25 Mg Tablet) 25 mg PO BID PRN PRN Reason: anxiety/agitation Last Admin: 09/19/23 20:54 Dose: 25 mg Quetiapine Fumarate (Quetiapine Fumarate 25 Mg Tablet) 25 mg PO DAILY@1700 [facility] Last Admin: 09/20/23 15:59 Dose: 25 mg Quetiapine Fumarate (Quetiapine Fumarate 25 Mg Tablet) 12.5 mg PO BID@0830,1330 [facility] Last Admin: 09/20/23 13:13 Dose: 12.5 mg Quetiapine Fumarate (Quetiapine Fumarate 50 Mg Tablet) 50 mg PO BEDTIME [facility] Last Admin: 09/19/23 20:54 Dose: 50 mg Sumatriptan Succinate (Sumatriptan Succinate 50 Mg Tablet) 50 mg PO DAILY MRX1 PRN PRN Reason: Migraine Headache Last Admin: 09/19/23 14:49 Dose: 50 mg Thiamine HCl (Thiamine Hcl 100 Mg Tablet) 100 mg PO DAILY [facility] Last Admin: 09/20/23 08:55 Dose: 100 mg Trazodone HCl (Trazodone Hcl 50 Mg Tablet) 50 mg PO BEDTIME MRX1 PRN PRN Reason: Insomnia Last Admin: 09/19/23 20:54 Dose: 50 mg Allergies Allergies Allergy/AdvReac Type Severity Reaction Status Date / Time Sulfa (Sulfonamide Allergy Severe ANAPHYLAXIS Verified 08/25/23 23:13 Antibiotics) [SULFA (SULFONAMIDE ANTIBIOTICS)] mold Allergy Intermediate Shortness Verified 08/25/23 22:42 of Breath Assessment & Plan Assessment & Plan (1) Alcohol abuse with alcohol-induced mental disorder: Status: Acute Code(s): F10.188 - Alcohol abuse with other alcohol-induced disorder Plan The patient is a 78-year-old male with a past history of alcohol use disorder who was brought to the emergency room of another hospital for psychotic symptoms at the this moment currently denies. 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 09/19 patient adamant about being able to go home soon. Unaware of cognitive issues Plan 1. Gather collateral information. We will try to contact his family and start working on proper diagnosis and treatment plan. 2. Continue with medications as prescribed. 3. We will continue with medical workout. 4. MRI without contrast done that showed no destruction of pulmonary by this. 5. 15 minute checks since the patient is able to contract for safety.. 6. Start Namenda 5 mg p.o. b.i.d. to target cognitive impairment due to dementia. 7. Even though that his dementia is advanced, we will start Aricept 5 mg p.o. q.h.s. in combination with Namenda since it can help on diminishing the progression of his cognitive impairment. On March 05 we increased Aricept to 10 mg p.o. q.h.s. the plan is to increase over the weekend to Namenda 10 mg p.o. b.i.d. 8. Waiting for placement. 9. Seroquel 25 mg p.o. at 17:00 to avoid ing. 10. Increase Seroquel up 12.5 p.o. b.i.d. on August 17. 11. Start tramadol p.r.n. [id number] pain on August 20. 12. On August 22 we are adding Seroquel 25 at bedtime. Total dose of Seroquel 75 mg a day 13. start Keflex 500 mg p.o. b.i.d. for cellulitis the cellulitis resolved. Patient educated on: diagnosis and medication risk/benefits Informed Consent: does not understand Reason for continued inpatient stay Substantial Risk for: inability to function Time Spent With Patient Time: Total time managing care of this patient today ____ minutes.
[2023-09-20 20:00] VITALS: BP 130/72; PULSE 75; RESP 16; TEMP 36.6; O2SAT 94
[2023-09-20] MEDS: Donepezil HCl 10 MG TABLET PO (20:48)
[2023-09-20] MEDS: QUEtiapine Fumarate 50 MG TABLET PO (20:48)
[2023-09-20] MEDS: traZODone HCL 50 MG TABLET PO (20:48)
[2023-09-21 09:20] VITALS: BP 121/62; PULSE 61; RESP 16; TEMP 36.5; O2SAT 95
[2023-09-21] MEDS: QUEtiapine Fumarate 25 MG TABLET 12.5 MG PO ×2 (09:23→14:57)
[2023-09-21] MEDS: Thiamine HCL 100 MG TABLET PO (09:23)
[2023-09-21] MEDS: Brimonidine Tartrate 0.2% Oph 5 ML BOTTLE 1 DROP EYE-BOTH ×3 (09:24→20:20)
[2023-09-21] MEDS: Memantine HCl 10 MG TABLET PO ×2 (09:25→20:21)
--- NOTE | 2023-09-21 16:21 | P.PNPSI_ITS ---
Subjective Subjective Date of Service: 09/21/23 Reason For Visit: Adjustment disorder,w/mixed disturbance of emotion Interim History: Met with patient; discussed with team Patient with same presentation. Eight meal and then forgot he ate meal. 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 med agrees to discuss with primary team when they return Mental Status Exam Mental Status Exam Patient Appearance: Appropriate Patient Orientation: Person and Place Level of Consciousness: Awake and Appropriate Patient Behavior: Cooperative (but irritable) and Good Eye Contact Mood Description: Constricted Affect Description: Constricted Patient Cognition Impaired: Yes Ability to Follow Directions: Good Speech Pattern: Clear Memory Description: Recent Impaired Hallucinations: None Delusions: Not Present Thought Process: Distracted and Goal Oriented Thought Content: positive for [place], positive for [place] and positive for Poverty of Content Judgement: Poor Diagnostics Vital Signs (24Hr): Vital Signs - 24 hr 09/20/23 20:00 09/21/23 09:20 Temperature 98 F 97.7 F Pulse Rate 75 61 Respiratory Rate 16 16 Blood Pressure 130/72 121/62 Pulse Oximetry 94 95 Oxygen Delivery Method Room Air Room Air BMI result Body Mass Index 22.1 Labs 07/29/23 08:35 Imaging Radiology Impressions: ITS Impressions Shoulder X-Ray 07/30/23 09:55 IMPRESSION: 1. No metallic foreign body. 2. Calcification adjacent to the humeral head likely on the basis of calcific tendinosis. Orbit X-Ray 07/30/23 11:07 IMPRESSION: 1. No unexpected radiopaque foreign bodies. 2. Clear lungs. 3. Nonobstructive bowel gas pattern. 4. Moderate to large degree of colonic stool burden. Brain MRI 07/30/23 20:40 IMPRESSION: No acute intracranial abnormality. No findings to suggest Wernicke encephalopathy. Hand X-Ray 08/26/23 09:05 IMPRESSION: No fracture seen. Medications Medications Current Medications Acetaminophen (Acetaminophen 325 Mg Tablet) 650 mg PO Q6H PRN PRN Reason: Headache/Pain (1-10) Last Admin: 09/17/23 14:12 Dose: 650 mg Al Hydroxide/Mg Hydroxide (Magnesium Hydrox/Alum Hydrox 30 Ml Oral.Susp) 30 ml PO Q6H PRN PRN Reason: Heartburn/Nausea Last Admin: 09/12/23 19:46 Dose: 30 ml Artificial Tears (Artificial Tears 15 Ml Drops) 1 drop EYE-BOTH Q4H PRN PRN Reason: Dry Eyes Last Admin: 09/20/23 08:56 Dose: 1 drop Benzocaine (Throat Lozenge, Medicated Lozenge) 1 lozenge MUCOUS MEM Q4H PRN PRN Reason: Sore Throat Brimonidine Tartrate (Brimonidine Tartrate 0.2% Oph 5 Ml Bottle) 1 drop EYE- BOTH TID [facility] Last Admin: 09/21/23 14:58 Dose: 1 drop Donepezil HCl (Donepezil Hcl 10 Mg Tablet) 10 mg PO BEDTIME [facility] Last Admin: 09/20/23 20:48 Dose: 10 mg Guaifenesin (Guaifenesin 200 Mg/10 Ml 10 Ml Liquid) 10 ml PO Q6H PRN PRN Reason: Cough Last Admin: 09/05/23 23:21 Dose: 10 ml Hydrocortisone (Hydrocortisone 1 % Cream 28.35 Gm Tube) 1 appl TOPICAL BID [facility]; Protocol Last Admin: 09/21/23 09:53 Dose: Not Given Lidocaine (Lidocaine 4 % Patch Adh..Patch) 2 patch TRANSDERMA DAILY PRN; Protocol PRN Reason: bilateral low back pain Last Admin: 09/13/23 21:01 Dose: 2 patch Magnesium Hydroxide (Milk Of Magnesia 30 Ml Oral.Susp) 30 ml PO DAILY PRN PRN Reason: Constipation Last Admin: 08/23/23 08:41 Dose: 30 ml Memantine (Memantine Hcl 10 Mg Tablet) 10 mg PO BID [facility] Last Admin: 09/21/23 09:25 Dose: 10 mg Quetiapine Fumarate (Quetiapine Fumarate 25 Mg Tablet) 25 mg PO BID PRN PRN Reason: anxiety/agitation Last Admin: 09/20/23 20:47 Dose: 25 mg Quetiapine Fumarate (Quetiapine Fumarate 25 Mg Tablet) 25 mg PO DAILY@1700 [facility] Last Admin: 09/20/23 15:59 Dose: 25 mg Quetiapine Fumarate (Quetiapine Fumarate 25 Mg Tablet) 12.5 mg PO BID@0830,1330 [facility] Last Admin: 09/21/23 14:57 Dose: 12.5 mg Quetiapine Fumarate (Quetiapine Fumarate 50 Mg Tablet) 50 mg PO BEDTIME [facility] Last Admin: 09/20/23 20:48 Dose: 50 mg Sumatriptan Succinate (Sumatriptan Succinate 50 Mg Tablet) 50 mg PO DAILY MRX1 PRN PRN Reason: Migraine Headache Last Admin: 09/19/23 14:49 Dose: 50 mg Thiamine HCl (Thiamine Hcl 100 Mg Tablet) 100 mg PO DAILY [facility] Last Admin: 09/21/23 09:23 Dose: 100 mg Trazodone HCl (Trazodone Hcl 50 Mg Tablet) 50 mg PO BEDTIME MRX1 PRN PRN Reason: Insomnia Last Admin: 09/20/23 20:48 Dose: 50 mg Allergies Allergies Allergy/AdvReac Type Severity Reaction Status Date / Time Sulfa (Sulfonamide Allergy Severe ANAPHYLAXIS Verified 08/25/23 23:13 Antibiotics) [SULFA (SULFONAMIDE ANTIBIOTICS)] mold Allergy Intermediate Shortness Verified 08/25/23 22:42 of Breath Assessment & Plan Assessment & Plan (1) Alcohol abuse with alcohol-induced mental disorder: Status: Acute Code(s): F10.188 - Alcohol abuse with other alcohol-induced disorder Plan The patient is a 78-year-old male with a past history of alcohol use disorder who was brought to the emergency room of another hospital for psychotic symptoms at the this moment currently denies. 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 09/19 patient adamant about being able to go home soon. Unaware of cognitive issues Plan 1. Gather collateral information. We will try to contact his family and start working on proper diagnosis and treatment plan. 2. Continue with medications as prescribed. 3. We will continue with medical workout. 4. MRI without contrast done that showed no destruction of pulmonary by this. 5. 15 minute checks since the patient is able to contract for safety.. 6. Start Namenda 5 mg p.o. b.i.d. to target cognitive impairment due to dementia. 7. Even though that his dementia is advanced, we will start Aricept 5 mg p.o. q.h.s. in combination with Namenda since it can help on diminishing the progression of his cognitive impairment. On March 05 we increased Aricept to 10 mg p.o. q.h.s. the plan is to increase over the weekend to Namenda 10 mg p.o. b.i.d. 8. Waiting for placement. 9. Seroquel 25 mg p.o. at 17:00 to avoid ing. 10. Increase Seroquel up 12.5 p.o. b.i.d. on August 17. 11. Start tramadol p.r.n. [id number] pain on August 20. 12. On August 22 we are adding Seroquel 25 at bedtime. Total dose of Seroquel 75 mg a day 13. start Keflex 500 mg p.o. b.i.d. for cellulitis the cellulitis resolved. Patient educated on: diagnosis Informed Consent: does not understand Reason for continued inpatient stay Substantial Risk for: inability to function Time Spent With Patient Time: Total time managing care of this patient today ____ minutes.
[2023-09-21] MEDS: QUEtiapine Fumarate 25 MG TABLET PO ×2 (17:42→21:58)
[2023-09-21 20:00] VITALS: BP 155/77; PULSE 89; RESP 18; TEMP 36.4; O2SAT 96
[2023-09-21] MEDS: Donepezil HCl 10 MG TABLET PO (20:20)
[2023-09-21] MEDS: QUEtiapine Fumarate 50 MG TABLET PO (20:21)
[2023-09-21] MEDS: Acetaminophen 325 MG TABLET 650 MG PO (21:57)
[2023-09-21] MEDS: traZODone HCL 50 MG TABLET PO (21:58)
[2023-09-21] MEDS: Lidocaine 4 % Patch ADH..PATCH 2 PATCH TRANSDERMA (22:01)
[2023-09-22 07:55] VITALS: BP 118/64; PULSE 69; RESP 18; TEMP 36.8; O2SAT 96
[2023-09-22] MEDS: QUEtiapine Fumarate 25 MG TABLET 12.5 MG PO ×2 (08:04→14:16)
[2023-09-22] MEDS: Memantine HCl 10 MG TABLET PO ×2 (08:04→20:35)
[2023-09-22] MEDS: Thiamine HCL 100 MG TABLET PO (08:05)
[2023-09-22] MEDS: Brimonidine Tartrate 0.2% Oph 5 ML BOTTLE 1 DROP EYE-BOTH ×3 (08:06→20:34)
--- NOTE | 2023-09-22 15:32 | HO.PSYCHPN ---
Subjective Subjective Date of Service: 09/22/23 Reason For Visit: Adjustment disorder,w/mixed disturbance of emotion Subjective Notes: Conditional Voluntary Interim History: The nursing staff reported the patient had been compliant with treatment, confused. On interview the patient denies new symptoms, waiting for placement. Mental Status Exam Mental Status Exam Patient Appearance: Appropriate Patient Orientation: Person and Situation Level of Consciousness: Awake and Appropriate Patient Behavior: Guarded and Passive Mood Description: Withdrawn Affect Description: Constricted Patient Cognition Impaired: Yes Ability to Follow Directions: Good Speech Pattern: Clear Hallucinations: None Delusions: Not Present Thought Process: Distracted and Slowed Thinking Thought Content: positive for [place] and positive for Poverty of Content Judgement: Fair Diagnostics Vital Signs (24Hr): Vital Signs - 24 hr 09/21/23 20:00 09/22/23 07:55 Temperature 97.5 F 98.2 F Pulse Rate 89 69 Respiratory Rate 18 18 Blood Pressure 155/77 H 118/64 Pulse Oximetry 96 96 Oxygen Delivery Method Room Air Room Air BMI result Body Mass Index 22.1 Labs 07/29/23 08:35 Imaging Radiology Impressions: ITS Impressions Shoulder X-Ray 07/30/23 09:55 IMPRESSION: 1. No metallic foreign body. 2. Calcification adjacent to the humeral head likely on the basis of calcific tendinosis. Orbit X-Ray 07/30/23 11:07 IMPRESSION: 1. No unexpected radiopaque foreign bodies. 2. Clear lungs. 3. Nonobstructive bowel gas pattern. 4. Moderate to large degree of colonic stool burden. Brain MRI 07/30/23 20:40 IMPRESSION: No acute intracranial abnormality. No findings to suggest Wernicke encephalopathy. Hand X-Ray 08/26/23 09:05 IMPRESSION: No fracture seen. Medications Medications Current Medications Acetaminophen (Acetaminophen 325 Mg Tablet) 650 mg PO Q6H PRN PRN Reason: Headache/Pain (1-10) Last Admin: 09/21/23 21:57 Dose: 650 mg Al Hydroxide/Mg Hydroxide (Magnesium Hydrox/Alum Hydrox 30 Ml Oral.Susp) 30 ml PO Q6H PRN PRN Reason: Heartburn/Nausea Last Admin: 09/12/23 19:46 Dose: 30 ml Artificial Tears (Artificial Tears 15 Ml Drops) 1 drop EYE-BOTH Q4H PRN PRN Reason: Dry Eyes Last Admin: 09/20/23 08:56 Dose: 1 drop Benzocaine (Throat Lozenge, Medicated Lozenge) 1 lozenge MUCOUS MEM Q4H PRN PRN Reason: Sore Throat Brimonidine Tartrate (Brimonidine Tartrate 0.2% Oph 5 Ml Bottle) 1 drop EYE-BOTH TID [facility] Last Admin: 09/22/23 14:16 Dose: 1 drop Donepezil HCl (Donepezil Hcl 10 Mg Tablet) 10 mg PO BEDTIME [facility] Last Admin: 09/21/23 20:20 Dose: 10 mg Guaifenesin (Guaifenesin 200 Mg/10 Ml 10 Ml Liquid) 10 ml PO Q6H PRN PRN Reason: Cough Last Admin: 09/05/23 23:21 Dose: 10 ml Hydrocortisone (Hydrocortisone 1 % Cream 28.35 Gm Tube) 1 appl TOPICAL BID [facility]; Protocol Last Admin: 09/22/23 08:11 Dose: Not Given Lidocaine (Lidocaine 4 % Patch Adh..Patch) 2 patch TRANSDERMA DAILY PRN; Protocol PRN Reason: bilateral low back pain Last Admin: 09/21/23 22:01 Dose: 2 patch Magnesium Hydroxide (Milk Of Magnesia 30 Ml Oral.Susp) 30 ml PO DAILY PRN PRN Reason: Constipation Last Admin: 08/23/23 08:41 Dose: 30 ml Memantine (Memantine Hcl 10 Mg Tablet) 10 mg PO BID [facility] Last Admin: 09/22/23 08:04 Dose: 10 mg Quetiapine Fumarate (Quetiapine Fumarate 25 Mg Tablet) 25 mg PO BID PRN PRN Reason: anxiety/agitation Last Admin: 09/21/23 21:58 Dose: 25 mg Quetiapine Fumarate (Quetiapine Fumarate 25 Mg Tablet) 25 mg PO DAILY@1700 [facility] Last Admin: 09/21/23 17:42 Dose: 25 mg Quetiapine Fumarate (Quetiapine Fumarate 25 Mg Tablet) 12.5 mg PO BID@0830,1330 [facility] Last Admin: 09/22/23 14:16 Dose: 12.5 mg Quetiapine Fumarate (Quetiapine Fumarate 50 Mg Tablet) 50 mg PO BEDTIME [facility] Last Admin: 09/21/23 20:21 Dose: 50 mg Sumatriptan Succinate (Sumatriptan Succinate 50 Mg Tablet) 50 mg PO DAILY MRX1 PRN PRN Reason: Migraine Headache Last Admin: 09/19/23 14:49 Dose: 50 mg Thiamine HCl (Thiamine Hcl 100 Mg Tablet) 100 mg PO DAILY [facility] Last Admin: 09/22/23 08:05 Dose: 100 mg Trazodone HCl (Trazodone Hcl 50 Mg Tablet) 50 mg PO BEDTIME MRX1 PRN PRN Reason: Insomnia Last Admin: 09/21/23 21:58 Dose: 50 mg Allergies Allergies Allergy/AdvReac Type Severity Reaction Status Date / Time Sulfa (Sulfonamide Allergy Severe ANAPHYLAXIS Verified 08/25/23 23:13 Antibiotics) [SULFA (SULFONAMIDE ANTIBIOTICS)] mold Allergy Intermediate Shortness Verified 08/25/23 22:42 of Breath Assessment & Plan Assessment & Plan (1) Alcohol abuse with alcohol-induced mental disorder: Status: Acute Code(s): F10.188 - Alcohol abuse with other alcohol-induced disorder Plan The patient is a 78-year-old male with a past history of alcohol use disorder who was brought to the emergency room of another hospital for psychotic symptoms at the this moment currently denies. 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 09/19 patient adamant about being able to go home soon. Unaware of cognitive issues Plan 1. Gather collateral information. We will try to contact his family and start working on proper diagnosis and treatment plan. 2. Continue with medications as prescribed. 3. We will continue with medical workout. 4. MRI without contrast done that showed no destruction of pulmonary by this. 5. 15 minute checks since the patient is able to contract for safety.. 6. Start Namenda 5 mg p.o. b.i.d. to target cognitive impairment due to dementia. 7. Even though that his dementia is advanced, we will start Aricept 5 mg p.o. q.h.s. in combination with Namenda since it can help on diminishing the progression of his cognitive impairment. On March 05 we increased Aricept to 10 mg p.o. q.h.s. the plan is to increase over the weekend to Namenda 10 mg p.o. b.i.d. 8. Waiting for placement. 9. Seroquel 25 mg p.o. at 17:00 to avoid ing. 10. Increase Seroquel up 12.5 p.o. b.i.d. on August 17. 11. Start tramadol p.r.n. [id number] pain on August 20. 12. On August 22 we are adding Seroquel 25 at bedtime. Total dose of Seroquel 75 mg a day 13. start Keflex 500 mg p.o. b.i.d. for cellulitis the cellulitis resolved. Reason for continued inpatient stay Substantial Risk for: inability to function, rapid decompensation and med/psych decompensation Time Spent With Patient Time: Total time managing care of this patient today __20__ minutes.
[2023-09-22] MEDS: QUEtiapine Fumarate 25 MG TABLET PO ×2 (17:04→21:51)
[2023-09-22 20:00] VITALS: BP 136/76; PULSE 91; RESP 18; TEMP 37.1; O2SAT 95
[2023-09-22] MEDS: Donepezil HCl 10 MG TABLET PO (20:34)
[2023-09-22] MEDS: traZODone HCL 50 MG TABLET PO ×2 (20:35→21:51)
[2023-09-22] MEDS: QUEtiapine Fumarate 50 MG TABLET PO (20:35)
[2023-09-22] MEDS: Magnesium Hydrox/Alum Hydrox 30 ML ORAL.SUSP PO (21:51)
[2023-09-23 08:00] VITALS: BP 165/74; PULSE 87; RESP 17; TEMP 36.4; O2SAT 96
[2023-09-23] MEDS: Thiamine HCL 100 MG TABLET PO (08:53)
[2023-09-23] MEDS: Memantine HCl 10 MG TABLET PO ×2 (08:53→21:01)
[2023-09-23] MEDS: QUEtiapine Fumarate 25 MG TABLET 12.5 MG PO ×2 (08:53→13:08)
[2023-09-23] MEDS: Brimonidine Tartrate 0.2% Oph 5 ML BOTTLE 1 DROP EYE-BOTH ×3 (08:54→21:01)
--- NOTE | 2023-09-23 15:11 | HO.PSYCHPN ---
Subjective Subjective Date of Service: 09/23/23 Reason For Visit: Adjustment disorder,w/mixed disturbance of emotion Subjective Notes: Conditional Voluntary Interim History: The nursing staff reported no changes in his mental status confused looking for his keys as usual. He goes daily to groups but he lives after a few minutes. The social media strategist reported that we are waiting for [facility] for placement. On interview the patient denies new symptoms, pleasantly confused. Mental Status Exam Mental Status Exam Patient Appearance: Appropriate Patient Orientation: Person and Situation Level of Consciousness: Awake and Appropriate Patient Behavior: Guarded and Passive Mood Description: Withdrawn Affect Description: Constricted Patient Cognition Impaired: Yes Ability to Follow Directions: Good Speech Pattern: Clear Hallucinations: None Delusions: Not Present Thought Process: Distracted and Slowed Thinking Thought Content: positive for [place] and positive for Poverty of Content Judgement: Poor Diagnostics Vital Signs (24Hr): Vital Signs - 24 hr 09/22/23 20:00 09/23/23 08:00 Temperature 98.7 F 97.5 F Pulse Rate 91 87 Respiratory Rate 18 17 Blood Pressure 136/76 165/74 H Pulse Oximetry 95 96 Oxygen Delivery Method Room Air Room Air BMI result Body Mass Index 22.1 Labs 07/29/23 08:35 Imaging Radiology Impressions: ITS Impressions Shoulder X-Ray 07/30/23 09:55 IMPRESSION: 1. No metallic foreign body. 2. Calcification adjacent to the humeral head likely on the basis of calcific tendinosis. Orbit X-Ray 07/30/23 11:07 IMPRESSION: 1. No unexpected radiopaque foreign bodies. 2. Clear lungs. 3. Nonobstructive bowel gas pattern. 4. Moderate to large degree of colonic stool burden. Brain MRI 07/30/23 20:40 IMPRESSION: No acute intracranial abnormality. No findings to suggest Wernicke encephalopathy. Hand X-Ray 08/26/23 09:05 IMPRESSION: No fracture seen. Medications Medications Current Medications Acetaminophen (Acetaminophen 325 Mg Tablet) 650 mg PO Q6H PRN PRN Reason: Headache/Pain (1-10) Last Admin: 09/21/23 21:57 Dose: 650 mg Al Hydroxide/Mg Hydroxide (Magnesium Hydrox/Alum Hydrox 30 Ml Oral.Susp) 30 ml PO Q6H PRN PRN Reason: Heartburn/Nausea Last Admin: 09/22/23 21:51 Dose: 30 ml Artificial Tears (Artificial Tears 15 Ml Drops) 1 drop EYE-BOTH Q4H PRN PRN Reason: Dry Eyes Last Admin: 09/20/23 08:56 Dose: 1 drop Benzocaine (Throat Lozenge, Medicated Lozenge) 1 lozenge MUCOUS MEM Q4H PRN PRN Reason: Sore Throat Brimonidine Tartrate (Brimonidine Tartrate 0.2% Oph 5 Ml Bottle) 1 drop EYE-BOTH TID [facility] Last Admin: 09/23/23 08:54 Dose: 1 drop Donepezil HCl (Donepezil Hcl 10 Mg Tablet) 10 mg PO BEDTIME [facility] Last Admin: 09/22/23 20:34 Dose: 10 mg Guaifenesin (Guaifenesin 200 Mg/10 Ml 10 Ml Liquid) 10 ml PO Q6H PRN PRN Reason: Cough Last Admin: 09/05/23 23:21 Dose: 10 ml Hydrocortisone (Hydrocortisone 1 % Cream 28.35 Gm Tube) 1 appl TOPICAL BID [facility]; Protocol Last Admin: 09/23/23 08:54 Dose: Not Given Lidocaine (Lidocaine 4 % Patch Adh..Patch) 2 patch TRANSDERMA DAILY PRN; Protocol PRN Reason: bilateral low back pain Last Admin: 09/21/23 22:01 Dose: 2 patch Magnesium Hydroxide (Milk Of Magnesia 30 Ml Oral.Susp) 30 ml PO DAILY PRN PRN Reason: Constipation Last Admin: 08/23/23 08:41 Dose: 30 ml Memantine (Memantine Hcl 10 Mg Tablet) 10 mg PO BID [facility] Last Admin: 09/23/23 08:53 Dose: 10 mg Quetiapine Fumarate (Quetiapine Fumarate 25 Mg Tablet) 25 mg PO BID PRN PRN Reason: anxiety/agitation Last Admin: 09/22/23 21:51 Dose: 25 mg Quetiapine Fumarate (Quetiapine Fumarate 25 Mg Tablet) 25 mg PO DAILY@1700 [facility] Last Admin: 09/22/23 17:04 Dose: 25 mg Quetiapine Fumarate (Quetiapine Fumarate 25 Mg Tablet) 12.5 mg PO BID@0830,1330 [facility] Last Admin: 09/23/23 13:08 Dose: 12.5 mg Quetiapine Fumarate (Quetiapine Fumarate 50 Mg Tablet) 50 mg PO BEDTIME [facility] Last Admin: 09/22/23 20:35 Dose: 50 mg Sumatriptan Succinate (Sumatriptan Succinate 50 Mg Tablet) 50 mg PO DAILY MRX1 PRN PRN Reason: Migraine Headache Last Admin: 09/19/23 14:49 Dose: 50 mg Thiamine HCl (Thiamine Hcl 100 Mg Tablet) 100 mg PO DAILY [facility] Last Admin: 09/23/23 08:53 Dose: 100 mg Trazodone HCl (Trazodone Hcl 50 Mg Tablet) 50 mg PO BEDTIME MRX1 PRN PRN Reason: Insomnia Last Admin: 09/22/23 21:51 Dose: 50 mg Allergies Allergies Allergy/AdvReac Type Severity Reaction Status Date / Time Sulfa (Sulfonamide Allergy Severe ANAPHYLAXIS Verified 08/25/23 23:13 Antibiotics) [SULFA (SULFONAMIDE ANTIBIOTICS)] mold Allergy Intermediate Shortness Verified 08/25/23 22:42 of Breath Assessment & Plan Assessment & Plan (1) Alcohol abuse with alcohol-induced mental disorder: Status: Acute Code(s): F10.188 - Alcohol abuse with other alcohol-induced disorder Plan The patient is a 78-year-old male with a past history of alcohol use disorder who was brought to the emergency room of another hospital for psychotic symptoms at the this moment currently denies. 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 09/19 patient adamant about being able to go home soon. Unaware of cognitive issues Plan 1. Gather collateral information. We will try to contact his family and start working on proper diagnosis and treatment plan. 2. Continue with medications as prescribed. 3. We will continue with medical workout. 4. MRI without contrast done that showed no destruction of pulmonary by this. 5. 15 minute checks since the patient is able to contract for safety.. 6. Start Namenda 5 mg p.o. b.i.d. to target cognitive impairment due to dementia. 7. Even though that his dementia is advanced, we will start Aricept 5 mg p.o. q.h.s. in combination with Namenda since it can help on diminishing the progression of his cognitive impairment. On March 05 we increased Aricept to 10 mg p.o. q.h.s. the plan is to increase over the weekend to Namenda 10 mg p.o. b.i.d. 8. Waiting for placement. 9. Seroquel 25 mg p.o. at 17:00 to avoid sundowning. 10. Increase Seroquel up 12.5 p.o. b.i.d. on August 17. 11. Start tramadol p.r.n. [id number] pain on August 20. 12. On August 22 we are adding Seroquel 25 at bedtime. Total dose of Seroquel 75 mg a day 13. start Keflex 500 mg p.o. b.i.d. for cellulitis the cellulitis resolved. Reason for continued inpatient stay Substantial Risk for: inability to function, rapid decompensation and med/psych decompensation Time Spent With Patient Time: Total time managing care of this patient today __20__ minutes.
[2023-09-23] MEDS: QUEtiapine Fumarate 25 MG TABLET PO (16:53)
[2023-09-23 20:00] VITALS: BP 115/60; PULSE 70; RESP 16; TEMP 36.6; O2SAT 96
[2023-09-23] MEDS: QUEtiapine Fumarate 50 MG TABLET PO (21:01)
[2023-09-23] MEDS: Donepezil HCl 10 MG TABLET PO (21:01)
[2023-09-24] MEDS: Lidocaine 4 % Patch ADH..PATCH 2 PATCH TRANSDERMA (05:36)
[2023-09-24] MEDS: Acetaminophen 325 MG TABLET 650 MG PO (05:36)
[2023-09-24 08:00] VITALS: BP 183/77; PULSE 92; RESP 17; TEMP 36.6; O2SAT 97
[2023-09-24] MEDS: Thiamine HCL 100 MG TABLET PO (08:52)
[2023-09-24] MEDS: QUEtiapine Fumarate 25 MG TABLET 12.5 MG PO ×2 (08:52→13:41)
[2023-09-24] MEDS: Brimonidine Tartrate 0.2% Oph 5 ML BOTTLE 1 DROP EYE-BOTH ×3 (08:53→20:45)
[2023-09-24] MEDS: Memantine HCl 10 MG TABLET PO ×2 (08:53→20:46)
[2023-09-24 09:00] VITALS: BP 138/72
--- NOTE | 2023-09-24 15:20 | HO.PSYCHPN ---
Subjective Subjective Date of Service: 09/24/23 Reason For Visit: Adjustment disorder,w/mixed disturbance of emotion Subjective Notes: Conditional Voluntary Interim History: The nursing staff reported the patient had been compliant with treatment, remains forgetful, pleasantly confused. On interview the patient can not remember discussions from days before. Waiting for placement. Mental Status Exam Mental Status Exam Patient Appearance: Appropriate Patient Orientation: Person Level of Consciousness: Awake Patient Behavior: Guarded and Passive Mood Description: Withdrawn Affect Description: Constricted Patient Cognition Impaired: Yes Ability to Follow Directions: Good Speech Pattern: Clear Hallucinations: None Delusions: Not Present Thought Process: Distracted and Slowed Thinking Thought Content: positive for [place] and positive for Poverty of Content Judgement: Poor Diagnostics Vital Signs (24Hr): Vital Signs - 24 hr 09/23/23 20:00 09/24/23 08:00 09/24/23 09:00 Temperature 98 F 97.8 F Pulse Rate 70 92 Respiratory Rate 16 17 Blood Pressure 115/60 183/77 H 138/72 Pulse Oximetry 96 97 Oxygen Delivery Method Room Air Room Air BMI result Body Mass Index 22.1 Labs 07/29/23 08:35 Imaging Radiology Impressions: ITS Impressions Shoulder X-Ray 07/30/23 09:55 IMPRESSION: 1. No metallic foreign body. 2. Calcification adjacent to the humeral head likely on the basis of calcific tendinosis. Orbit X-Ray 07/30/23 11:07 IMPRESSION: 1. No unexpected radiopaque foreign bodies. 2. Clear lungs. 3. Nonobstructive bowel gas pattern. 4. Moderate to large degree of colonic stool burden. Brain MRI 07/30/23 20:40 IMPRESSION: No acute intracranial abnormality. No findings to suggest Wernicke encephalopathy. Hand X-Ray 08/26/23 09:05 IMPRESSION: No fracture seen. Medications Medications Current Medications Acetaminophen (Acetaminophen 325 Mg Tablet) 650 mg PO Q6H PRN PRN Reason: Headache/Pain (1-10) Last Admin: 09/24/23 05:36 Dose: 650 mg Al Hydroxide/Mg Hydroxide (Magnesium Hydrox/Alum Hydrox 30 Ml Oral.Susp) 30 ml PO Q6H PRN PRN Reason: Heartburn/Nausea Last Admin: 09/22/23 21:51 Dose: 30 ml Artificial Tears (Artificial Tears 15 Ml Drops) 1 drop EYE-BOTH Q4H PRN PRN Reason: Dry Eyes Last Admin: 09/20/23 08:56 Dose: 1 drop Benzocaine (Throat Lozenge, Medicated Lozenge) 1 lozenge MUCOUS MEM Q4H PRN PRN Reason: Sore Throat Brimonidine Tartrate (Brimonidine Tartrate 0.2% Oph 5 Ml Bottle) 1 drop EYE-BOTH TID [facility] Last Admin: 09/24/23 15:17 Dose: 1 drop Donepezil HCl (Donepezil Hcl 10 Mg Tablet) 10 mg PO BEDTIME [facility] Last Admin: 09/23/23 21:01 Dose: 10 mg Guaifenesin (Guaifenesin 200 Mg/10 Ml 10 Ml Liquid) 10 ml PO Q6H PRN PRN Reason: Cough Last Admin: 09/05/23 23:21 Dose: 10 ml Hydrocortisone (Hydrocortisone 1 % Cream 28.35 Gm Tube) 1 appl TOPICAL BID [facility]; Protocol Last Admin: 09/24/23 08:54 Dose: Not Given Lidocaine (Lidocaine 4 % Patch Adh..Patch) 2 patch TRANSDERMA DAILY PRN; Protocol PRN Reason: bilateral low back pain Last Admin: 09/24/23 05:36 Dose: 2 patch Magnesium Hydroxide (Milk Of Magnesia 30 Ml Oral.Susp) 30 ml PO DAILY PRN PRN Reason: Constipation Last Admin: 08/23/23 08:41 Dose: 30 ml Memantine (Memantine Hcl 10 Mg Tablet) 10 mg PO BID [facility] Last Admin: 09/24/23 08:53 Dose: 10 mg Quetiapine Fumarate (Quetiapine Fumarate 25 Mg Tablet) 25 mg PO BID PRN PRN Reason: anxiety/agitation Last Admin: 09/22/23 21:51 Dose: 25 mg Quetiapine Fumarate (Quetiapine Fumarate 25 Mg Tablet) 25 mg PO DAILY@1700 [facility] Last Admin: 09/23/23 16:53 Dose: 25 mg Quetiapine Fumarate (Quetiapine Fumarate 25 Mg Tablet) 12.5 mg PO BID@0830,1330 [facility] Last Admin: 09/24/23 13:41 Dose: 12.5 mg Quetiapine Fumarate (Quetiapine Fumarate 50 Mg Tablet) 50 mg PO BEDTIME [facility] Last Admin: 09/23/23 21:01 Dose: 50 mg Sumatriptan Succinate (Sumatriptan Succinate 50 Mg Tablet) 50 mg PO DAILY MRX1 PRN PRN Reason: Migraine Headache Last Admin: 09/19/23 14:49 Dose: 50 mg Thiamine HCl (Thiamine Hcl 100 Mg Tablet) 100 mg PO DAILY [facility] Last Admin: 09/24/23 08:52 Dose: 100 mg Trazodone HCl (Trazodone Hcl 50 Mg Tablet) 50 mg PO BEDTIME MRX1 PRN PRN Reason: Insomnia Last Admin: 09/22/23 21:51 Dose: 50 mg Allergies Allergies Allergy/AdvReac Type Severity Reaction Status Date / Time Sulfa (Sulfonamide Allergy Severe ANAPHYLAXIS Verified 08/25/23 23:13 Antibiotics) [SULFA (SULFONAMIDE ANTIBIOTICS)] mold Allergy Intermediate Shortness Verified 08/25/23 22:42 of Breath Assessment & Plan Assessment & Plan (1) Alcohol abuse with alcohol-induced mental disorder: Status: Acute Code(s): F10.188 - Alcohol abuse with other alcohol-induced disorder Plan The patient is a 78-year-old male with a past history of alcohol use disorder who was brought to the emergency room of another hospital for psychotic symptoms at the this moment currently denies. 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 09/19 patient adamant about being able to go home soon. Unaware of cognitive issues Plan 1. Gather collateral information. We will try to contact his family and start working on proper diagnosis and treatment plan. 2. Continue with medications as prescribed. 3. We will continue with medical workout. 4. MRI without contrast done that showed no destruction of pulmonary by this. 5. 15 minute checks since the patient is able to contract for safety.. 6. Start Namenda 5 mg p.o. b.i.d. to target cognitive impairment due to dementia. 7. Even though that his dementia is advanced, we will start Aricept 5 mg p.o. q.h.s. in combination with Namenda since it can help on diminishing the progression of his cognitive impairment. On March 05 we increased Aricept to 10 mg p.o. q.h.s. the plan is to increase over the weekend to Namenda 10 mg p.o. b.i.d. 8. Waiting for placement. 9. Seroquel 25 mg p.o. at 17:00 to avoid ing. 10. Increase Seroquel up 12.5 p.o. b.i.d. on August 17. Start tramadol p.r.n. [id number] pain on August 20. On August 22 we are adding Seroquel 25 at bedtime. Total dose of Seroquel 75 mg a day 13. start Keflex 500 mg p.o. b.i.d. for cellulitis the cellulitis resolved. Reason for continued inpatient stay Substantial Risk for: inability to function, rapid decompensation and med/psych decompensation Time Spent With Patient Time: Total time managing care of this patient today __30__ minutes.
[2023-09-24] MEDS: QUEtiapine Fumarate 25 MG TABLET PO ×2 (16:51→20:47)
[2023-09-24 20:00] VITALS: BP 133/66; PULSE 81; RESP 18; TEMP 36.3; O2SAT 94
[2023-09-24] MEDS: Donepezil HCl 10 MG TABLET PO (20:45)
[2023-09-24] MEDS: QUEtiapine Fumarate 50 MG TABLET PO (20:46)
[2023-09-24] MEDS: traZODone HCL 50 MG TABLET PO (20:46)
[2023-09-25] MEDS: Lidocaine 4 % Patch ADH..PATCH 2 PATCH TRANSDERMA (04:44)
[2023-09-25] MEDS: Acetaminophen 325 MG TABLET 650 MG PO (04:53)
[2023-09-25 07:00] VITALS: BMI 22.7
[2023-09-25 08:00] VITALS: BP 140/64; PULSE 73; RESP 18; TEMP 36.5; O2SAT 96
[2023-09-25] MEDS: Brimonidine Tartrate 0.2% Oph 5 ML BOTTLE 1 DROP EYE-BOTH ×3 (08:04→21:14)
[2023-09-25] MEDS: QUEtiapine Fumarate 25 MG TABLET 12.5 MG PO ×2 (08:04→13:45)
[2023-09-25] MEDS: Memantine HCl 10 MG TABLET PO ×2 (08:04→21:15)
[2023-09-25] MEDS: Artificial Tears 15 ML DROPS 1 DROP EYE-BOTH (08:04)
[2023-09-25] MEDS: Thiamine HCL 100 MG TABLET PO (08:04)
--- NOTE | 2023-09-25 15:33 | P.PNPSI_ITS ---
Subjective Subjective Date of Service: 09/25/23 Reason For Visit: Adjustment disorder,w/mixed disturbance of emotion Subjective Notes: Conditional Voluntary Interim History: The nursing staff reported no changes in his mental status, he showered yesterday. The director of social work contact her son regarding the financial clearance. On interview the patient is pleasantly confused, easily redirectable. Mental Status Exam Mental Status Exam Patient Appearance: Appropriate Patient Orientation: Person and Situation Level of Consciousness: Awake and Appropriate Patient Behavior: Guarded and Passive Mood Description: Withdrawn Affect Description: Calm and Constricted Patient Cognition Impaired: Yes Ability to Follow Directions: Good Speech Pattern: Clear Hallucinations: None Delusions: Not Present Thought Process: Distracted and Slowed Thinking Thought Content: positive for [place] and positive for Poverty of Content Judgement: Fair Diagnostics Vital Signs (24Hr): Vital Signs - 24 hr 09/24/23 20:00 09/25/23 08:00 Temperature 97.4 F 97.7 F Pulse Rate 81 73 Respiratory Rate 18 18 Blood Pressure 133/66 140/64 H Pulse Oximetry 94 96 Oxygen Delivery Method Room Air Room Air BMI result Body Mass Index 22.7 Labs 07/29/23 08:35 Imaging Radiology Impressions: ITS Impressions Shoulder X-Ray 07/30/23 09:55 IMPRESSION: 1. No metallic foreign body. 2. Calcification adjacent to the humeral head likely on the basis of calcific tendinosis. Orbit X-Ray 07/30/23 11:07 IMPRESSION: 1. No unexpected radiopaque foreign bodies. 2. Clear lungs. 3. Nonobstructive bowel gas pattern. 4. Moderate to large degree of colonic stool burden. Brain MRI 07/30/23 20:40 IMPRESSION: No acute intracranial abnormality. No findings to suggest Wernicke encephalopathy. Hand X-Ray 08/26/23 09:05 IMPRESSION: No fracture seen. Medications Medications Current Medications Acetaminophen (Acetaminophen 325 Mg Tablet) 650 mg PO Q6H PRN PRN Reason: Headache/Pain (1-10) Last Admin: 09/25/23 04:53 Dose: 650 mg Al Hydroxide/Mg Hydroxide (Magnesium Hydrox/Alum Hydrox 30 Ml Oral.Susp) 30 ml PO Q6H PRN PRN Reason: Heartburn/Nausea Last Admin: 09/22/23 21:51 Dose: 30 ml Artificial Tears (Artificial Tears 15 Ml Drops) 1 drop EYE-BOTH Q4H PRN PRN Reason: Dry Eyes Last Admin: 09/25/23 08:04 Dose: 1 drop Benzocaine (Throat Lozenge, Medicated Lozenge) 1 lozenge MUCOUS MEM Q4H PRN PRN Reason: Sore Throat Brimonidine Tartrate (Brimonidine Tartrate 0.2% Oph 5 Ml Bottle) 1 drop EYE- BOTH TID [facility] Last Admin: 09/25/23 08:04 Dose: 1 drop Donepezil HCl (Donepezil Hcl 10 Mg Tablet) 10 mg PO BEDTIME [facility] Last Admin: 09/24/23 20:45 Dose: 10 mg Guaifenesin (Guaifenesin 200 Mg/10 Ml 10 Ml Liquid) 10 ml PO Q6H PRN PRN Reason: Cough Last Admin: 09/05/23 23:21 Dose: 10 ml Hydrocortisone (Hydrocortisone 1 % Cream 28.35 Gm Tube) 1 appl TOPICAL BID [facility]; Protocol Last Admin: 09/25/23 08:05 Dose: Not Given Lidocaine (Lidocaine 4 % Patch Adh..Patch) 2 patch TRANSDERMA DAILY PRN; Protocol PRN Reason: bilateral low back pain Last Admin: 09/25/23 04:44 Dose: 2 patch Magnesium Hydroxide (Milk Of Magnesia 30 Ml Oral.Susp) 30 ml PO DAILY PRN PRN Reason: Constipation Last Admin: 08/23/23 08:41 Dose: 30 ml Memantine (Memantine Hcl 10 Mg Tablet) 10 mg PO BID [facility] Last Admin: 09/25/23 08:04 Dose: 10 mg Quetiapine Fumarate (Quetiapine Fumarate 25 Mg Tablet) 25 mg PO BID PRN PRN Reason: anxiety/agitation Last Admin: 09/24/23 20:47 Dose: 25 mg Quetiapine Fumarate (Quetiapine Fumarate 25 Mg Tablet) 25 mg PO DAILY@1700 [facility] Last Admin: 09/24/23 16:51 Dose: 25 mg Quetiapine Fumarate (Quetiapine Fumarate 25 Mg Tablet) 12.5 mg PO BID@0830,1330 [facility] Last Admin: 09/25/23 13:45 Dose: 12.5 mg Quetiapine Fumarate (Quetiapine Fumarate 50 Mg Tablet) 50 mg PO BEDTIME [facility] Last Admin: 09/24/23 20:46 Dose: 50 mg Sumatriptan Succinate (Sumatriptan Succinate 50 Mg Tablet) 50 mg PO DAILY MRX1 PRN PRN Reason: Migraine Headache Last Admin: 09/19/23 14:49 Dose: 50 mg Thiamine HCl (Thiamine Hcl 100 Mg Tablet) 100 mg PO DAILY [facility] Last Admin: 09/25/23 08:04 Dose: 100 mg Trazodone HCl (Trazodone Hcl 50 Mg Tablet) 50 mg PO BEDTIME MRX1 PRN PRN Reason: Insomnia Last Admin: 09/24/23 20:46 Dose: 50 mg Allergies Allergies Allergy/AdvReac Type Severity Reaction Status Date / Time Sulfa (Sulfonamide Allergy Severe ANAPHYLAXIS Verified 08/25/23 23:13 Antibiotics) [SULFA (SULFONAMIDE ANTIBIOTICS)] mold Allergy Intermediate Shortness Verified 08/25/23 22:42 of Breath Assessment & Plan Assessment & Plan (1) Alcohol abuse with alcohol-induced mental disorder: Status: Acute Code(s): F10.188 - Alcohol abuse with other alcohol-induced disorder Plan The patient is a 78-year-old male with a past history of alcohol use disorder who was brought to the emergency room of another hospital for psychotic symptoms at the this moment currently denies. 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 09/19 patient adamant about being able to go home soon. Unaware of cognitive issues Plan 1. Gather collateral information. We will try to contact his family and start working on proper diagnosis and treatment plan. 2. Continue with medications as prescribed. 3. We will continue with medical workout. 4. MRI without contrast done that showed no destruction of pulmonary by this. 5. 15 minute checks since the patient is able to contract for safety.. 6. Start Namenda 5 mg p.o. b.i.d. to target cognitive impairment due to dementia. 7. Even though that his dementia is advanced, we will start Aricept 5 mg p.o. q.h.s. in combination with Namenda since it can help on diminishing the progression of his cognitive impairment. On March 05 we increased Aricept to 10 mg p.o. q.h.s. the plan is to increase over the weekend to Namenda 10 mg p.o. b.i.d. 8. Waiting for placement. 9. Seroquel 25 mg p.o. at 17:00 to avoid . 10. Increase Seroquel up 12.5 p.o. b.i.d. on August 17. Start tramadol p.r.n. [id number] pain on August 20. On August 22 we are adding Seroquel 25 at bedtime. Total dose of Seroquel 75 mg a day 13. start Keflex 500 mg p.o. b.i.d. for cellulitis the cellulitis resolved. Reason for continued inpatient stay Substantial Risk for: inability to function, rapid decompensation and med/psych decompensation Time Spent With Patient Time: Total time managing care of this patient today __20__ minutes.
[2023-09-25] MEDS: QUEtiapine Fumarate 25 MG TABLET PO ×3 (15:59→23:19)
[2023-09-25 20:00] VITALS: BP 129/63; PULSE 68; RESP 16; TEMP 36.9; O2SAT 97
[2023-09-25] MEDS: QUEtiapine Fumarate 50 MG TABLET PO (21:15)
[2023-09-25] MEDS: Donepezil HCl 10 MG TABLET PO (21:15)
[2023-09-25] MEDS: traZODone HCL 50 MG TABLET PO ×2 (21:15→23:18)
[2023-09-26] MEDS: Magnesium Hydrox/Alum Hydrox 30 ML ORAL.SUSP PO (00:02)
[2023-09-26] MEDS: QUEtiapine Fumarate 25 MG TABLET PO ×2 (01:45→16:26)
[2023-09-26] MEDS: traZODone HCL 50 MG TABLET PO ×2 (01:45→23:04)
[2023-09-26] MEDS: Lidocaine 4 % Patch ADH..PATCH 2 PATCH TRANSDERMA (04:27)
[2023-09-26 09:47] VITALS: BP 121/59; PULSE 78; RESP 16; TEMP 36.5; O2SAT 96
[2023-09-26] MEDS: Thiamine HCL 100 MG TABLET PO (09:50)
[2023-09-26] MEDS: QUEtiapine Fumarate 25 MG TABLET 12.5 MG PO ×2 (09:50→15:03)
[2023-09-26] MEDS: Memantine HCl 10 MG TABLET PO ×2 (09:51→23:03)
[2023-09-26] MEDS: Brimonidine Tartrate 0.2% Oph 5 ML BOTTLE 1 DROP EYE-BOTH ×3 (09:51→23:02)
--- NOTE | 2023-09-26 15:33 | P.PNPSI_ITS ---
Subjective Subjective Date of Service: 09/26/23 Reason For Visit: Adjustment disorder,w/mixed disturbance of emotion Subjective Notes: Conditional Voluntary Interim History: The nursing staff reported the patient is pleasantly confused, looking for his wallet and his car keys as usual. He has been seen watching TV. On interview the patient is pleasantly confused unable to remember conversations for the days before. Mental Status Exam Mental Status Exam Patient Appearance: Appropriate Patient Orientation: Person and Situation Level of Consciousness: Awake Patient Behavior: Guarded and Passive Mood Description: Withdrawn Affect Description: Constricted Patient Cognition Impaired: Yes Ability to Follow Directions: Good Speech Pattern: Clear Hallucinations: None Delusions: Not Present Thought Process: Distracted and Slowed Thinking Thought Content: positive for [place] and positive for Poverty of Content Judgement: Fair Diagnostics Vital Signs (24Hr): Vital Signs - 24 hr 09/25/23 20:00 09/26/23 09:47 Temperature 98.4 F 97.7 F Pulse Rate 68 78 Respiratory Rate 16 16 Blood Pressure 129/63 121/59 L Pulse Oximetry 97 96 Oxygen Delivery Method Room Air Room Air BMI result Body Mass Index 22.7 Labs 07/29/23 08:35 Imaging Radiology Impressions: ITS Impressions Shoulder X-Ray 07/30/23 09:55 IMPRESSION: 1. No metallic foreign body. 2. Calcification adjacent to the humeral head likely on the basis of calcific tendinosis. Orbit X-Ray 07/30/23 11:07 IMPRESSION: 1. No unexpected radiopaque foreign bodies. 2. Clear lungs. 3. Nonobstructive bowel gas pattern. 4. Moderate to large degree of colonic stool burden. Brain MRI 07/30/23 20:40 IMPRESSION: No acute intracranial abnormality. No findings to suggest Wernicke encephalopathy. Hand X-Ray 08/26/23 09:05 IMPRESSION: No fracture seen. Medications Medications Current Medications Acetaminophen (Acetaminophen 325 Mg Tablet) 650 mg PO Q6H PRN PRN Reason: Headache/Pain (1-10) Last Admin: 09/25/23 04:53 Dose: 650 mg Al Hydroxide/Mg Hydroxide (Magnesium Hydrox/Alum Hydrox 30 Ml Oral.Susp) 30 ml PO Q6H PRN PRN Reason: Heartburn/Nausea Last Admin: 09/26/23 00:02 Dose: 30 ml Artificial Tears (Artificial Tears 15 Ml Drops) 1 drop EYE-BOTH Q4H PRN PRN Reason: Dry Eyes Last Admin: 09/25/23 08:04 Dose: 1 drop Benzocaine (Throat Lozenge, Medicated Lozenge) 1 lozenge MUCOUS MEM Q4H PRN PRN Reason: Sore Throat Brimonidine Tartrate (Brimonidine Tartrate 0.2% Oph 5 Ml Bottle) 1 drop EYE- BOTH TID [facility] Last Admin: 09/26/23 15:04 Dose: 1 drop Donepezil HCl (Donepezil Hcl 10 Mg Tablet) 10 mg PO BEDTIME [facility] Last Admin: 09/25/23 21:15 Dose: 10 mg Guaifenesin (Guaifenesin 200 Mg/10 Ml 10 Ml Liquid) 10 ml PO Q6H PRN PRN Reason: Cough Last Admin: 09/05/23 23:21 Dose: 10 ml Lidocaine (Lidocaine 4 % Patch Adh..Patch) 2 patch TRANSDERMA DAILY PRN; Protocol PRN Reason: bilateral low back pain Last Admin: 09/26/23 04:27 Dose: 2 patch Magnesium Hydroxide (Milk Of Magnesia 30 Ml Oral.Susp) 30 ml PO DAILY PRN PRN Reason: Constipation Last Admin: 08/23/23 08:41 Dose: 30 ml Memantine (Memantine Hcl 10 Mg Tablet) 10 mg PO BID [facility] Last Admin: 09/26/23 09:51 Dose: 10 mg Quetiapine Fumarate (Quetiapine Fumarate 25 Mg Tablet) 25 mg PO BID PRN PRN Reason: anxiety/agitation Last Admin: 09/26/23 01:45 Dose: 25 mg Quetiapine Fumarate (Quetiapine Fumarate 25 Mg Tablet) 25 mg PO DAILY@1700 [facility] Last Admin: 09/25/23 15:59 Dose: 25 mg Quetiapine Fumarate (Quetiapine Fumarate 25 Mg Tablet) 12.5 mg PO BID@0830,1330 [facility] Last Admin: 09/26/23 15:03 Dose: 12.5 mg Quetiapine Fumarate (Quetiapine Fumarate 50 Mg Tablet) 50 mg PO BEDTIME [facility] Last Admin: 09/25/23 21:15 Dose: 50 mg Sumatriptan Succinate (Sumatriptan Succinate 50 Mg Tablet) 50 mg PO DAILY MRX1 PRN PRN Reason: Migraine Headache Last Admin: 09/19/23 14:49 Dose: 50 mg Thiamine HCl (Thiamine Hcl 100 Mg Tablet) 100 mg PO DAILY [facility] Last Admin: 09/26/23 09:50 Dose: 100 mg Trazodone HCl (Trazodone Hcl 50 Mg Tablet) 50 mg PO BEDTIME MRX1 PRN PRN Reason: Insomnia Last Admin: 09/26/23 01:45 Dose: 50 mg Allergies Allergies Allergy/AdvReac Type Severity Reaction Status Date / Time Sulfa (Sulfonamide Allergy Severe ANAPHYLAXIS Verified 08/25/23 23:13 Antibiotics) [SULFA (SULFONAMIDE ANTIBIOTICS)] mold Allergy Intermediate Shortness Verified 08/25/23 22:42 of Breath Assessment & Plan Assessment & Plan (1) Alcohol abuse with alcohol-induced mental disorder: Status: Acute Code(s): F10.188 - Alcohol abuse with other alcohol-induced disorder Plan The patient is a 78-year-old male with a past history of alcohol use disorder who was brought to the emergency room of another hospital for psychotic symptoms at the this moment currently denies. 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 09/19 patient adamant about being able to go home soon. Unaware of cognitive issues Plan 1. Gather collateral information. We will try to contact his family and start working on proper diagnosis and treatment plan. 2. Continue with medications as prescribed. 3. We will continue with medical workout. 4. MRI without contrast done that showed no destruction of pulmonary by this. 5. 15 minute checks since the patient is able to contract for safety.. 6. Start Namenda 5 mg p.o. b.i.d. to target cognitive impairment due to dementia. 7. Even though that his dementia is advanced, we will start Aricept 5 mg p.o. q.h.s. in combination with Namenda since it can help on diminishing the progression of his cognitive impairment. On March 05 we increased Aricept to 10 mg p.o. q.h.s. the plan is to increase over the weekend to Namenda 10 mg p.o. b.i.d. 8. Waiting for placement. 9. Seroquel 25 mg p.o. at 17:00 to avoid ing. 10. Increase Seroquel up 12.5 p.o. b.i.d. on August 17. 11. Start tramadol p.r.n. [id number] pain on August 20. 12. On August 22 we are adding Seroquel 25 at bedtime. Total dose of Seroquel 75 mg a day 13. start Keflex 500 mg p.o. b.i.d. for cellulitis the cellulitis resolved. Reason for continued inpatient stay Substantial Risk for: inability to function, rapid decompensation and med/psych decompensation Time Spent With Patient Time: Total time managing care of this patient today __20__ minutes.
[2023-09-26] MEDS: SUMAtriptan succinate 50 MG TABLET PO (16:26)
[2023-09-26 20:00] VITALS: RESP 16
[2023-09-26] MEDS: QUEtiapine Fumarate 50 MG TABLET PO (23:03)
[2023-09-26] MEDS: Donepezil HCl 10 MG TABLET PO (23:03)
[2023-09-27] MEDS: Acetaminophen 325 MG TABLET 650 MG PO (06:50)
[2023-09-27 08:11] VITALS: BP 119/57; PULSE 67; RESP 14; TEMP 36.5; O2SAT 97
--- NOTE | 2023-09-27 08:31 | P.PNPSI_ITS ---
Subjective Subjective Date of Service: 09/27/23 Reason For Visit: Adjustment disorder,w/mixed disturbance of emotion Subjective Notes: Conditional Voluntary Interim History: Pt slept through the night. No behavioral concerns. severe anterograde amnesia, repeats questions as to no one has talk to him about plan Review of Systems Review of Systems Denies today Yes all other systems are reviewed and are negative Mental Status Exam Mental Status Exam Patient Appearance: Appropriate Patient Orientation: Person and Place Level of Consciousness: Awake and Appropriate Patient Behavior: Cooperative (but irritable) and Good Eye Contact Mood Description: Constricted Affect Description: Constricted Patient Cognition Impaired: Yes Ability to Follow Directions: Good Speech Pattern: Clear Memory Description: Recent Impaired Diagnostics Vital Signs (24Hr): Vital Signs - 24 hr 09/26/23 09:47 09/26/23 20:00 09/27/23 08:11 Temperature 97.7 F 97.7 F Pulse Rate 78 67 Respiratory Rate 16 16 14 Blood Pressure 121/59 L 119/57 L Pulse Oximetry 96 97 Oxygen Delivery Method Room Air Room Air BMI result Body Mass Index 22.7 Labs 07/29/23 08:35 Imaging Radiology Impressions: ITS Impressions Shoulder X-Ray 07/30/23 09:55 IMPRESSION: 1. No metallic foreign body. 2. Calcification adjacent to the humeral head likely on the basis of calcific tendinosis. Orbit X-Ray 07/30/23 11:07 IMPRESSION: 1. No unexpected radiopaque foreign bodies. 2. Clear lungs. 3. Nonobstructive bowel gas pattern. 4. Moderate to large degree of colonic stool burden. Brain MRI 07/30/23 20:40 IMPRESSION: No acute intracranial abnormality. No findings to suggest Wernicke encephalopathy. Hand X-Ray 08/26/23 09:05 IMPRESSION: No fracture seen. Medications Medications Current Medications Acetaminophen (Acetaminophen 325 Mg Tablet) 650 mg PO Q6H PRN PRN Reason: Headache/Pain (1-10) Last Admin: 09/27/23 06:50 Dose: 650 mg Al Hydroxide/Mg Hydroxide (Magnesium Hydrox/Alum Hydrox 30 Ml Oral.Susp) 30 ml PO Q6H PRN PRN Reason: Heartburn/Nausea Last Admin: 09/26/23 00:02 Dose: 30 ml Artificial Tears (Artificial Tears 15 Ml Drops) 1 drop EYE-BOTH Q4H PRN PRN Reason: Dry Eyes Last Admin: 09/25/23 08:04 Dose: 1 drop Benzocaine (Throat Lozenge, Medicated Lozenge) 1 lozenge MUCOUS MEM Q4H PRN PRN Reason: Sore Throat Brimonidine Tartrate (Brimonidine Tartrate 0.2% Oph 5 Ml Bottle) 1 drop EYE- BOTH TID [facility] Last Admin: 09/26/23 23:09 Dose: Not Given Donepezil HCl (Donepezil Hcl 10 Mg Tablet) 10 mg PO BEDTIME [facility] Last Admin: 09/26/23 23:10 Dose: Not Given Guaifenesin (Guaifenesin 200 Mg/10 Ml 10 Ml Liquid) 10 ml PO Q6H PRN PRN Reason: Cough Last Admin: 09/05/23 23:21 Dose: 10 ml Lidocaine (Lidocaine 4 % Patch Adh..Patch) 2 patch TRANSDERMA DAILY PRN; Protocol PRN Reason: bilateral low back pain Last Admin: 09/26/23 04:27 Dose: 2 patch Magnesium Hydroxide (Milk Of Magnesia 30 Ml Oral.Susp) 30 ml PO DAILY PRN PRN Reason: Constipation Last Admin: 08/23/23 08:41 Dose: 30 ml Memantine (Memantine Hcl 10 Mg Tablet) 10 mg PO BID [facility] Last Admin: 09/26/23 23:10 Dose: Not Given Quetiapine Fumarate (Quetiapine Fumarate 25 Mg Tablet) 25 mg PO BID PRN PRN Reason: anxiety/agitation Last Admin: 09/26/23 01:45 Dose: 25 mg Quetiapine Fumarate (Quetiapine Fumarate 25 Mg Tablet) 25 mg PO DAILY@1700 [facility] Last Admin: 09/26/23 16:26 Dose: 25 mg Quetiapine Fumarate (Quetiapine Fumarate 25 Mg Tablet) 12.5 mg PO BID@0830,1330 [facility] Last Admin: 09/26/23 15:03 Dose: 12.5 mg Quetiapine Fumarate (Quetiapine Fumarate 50 Mg Tablet) 50 mg PO BEDTIME [facility] Last Admin: 09/26/23 23:10 Dose: Not Given Sumatriptan Succinate (Sumatriptan Succinate 50 Mg Tablet) 50 mg PO DAILY MRX1 PRN PRN Reason: Migraine Headache Last Admin: 09/26/23 16:26 Dose: 50 mg Thiamine HCl (Thiamine Hcl 100 Mg Tablet) 100 mg PO DAILY [facility] Last Admin: 09/26/23 09:50 Dose: 100 mg Trazodone HCl (Trazodone Hcl 50 Mg Tablet) 50 mg PO BEDTIME MRX1 PRN PRN Reason: Insomnia Last Admin: 09/26/23 23:04 Dose: 50 mg Allergies Allergies Allergy/AdvReac Type Severity Reaction Status Date / Time Sulfa (Sulfonamide Allergy Severe ANAPHYLAXIS Verified 08/25/23 23:13 Antibiotics) [SULFA (SULFONAMIDE ANTIBIOTICS)] mold Allergy Intermediate Shortness Verified 08/25/23 22:42 of Breath Assessment & Plan Assessment & Plan (1) Alcohol abuse with alcohol-induced mental disorder: Status: Acute Code(s): F10.188 - Alcohol abuse with other alcohol-induced disorder Plan The patient is a 78-year-old male with a past history of alcohol use disorder who was brought to the emergency room of another hospital for psychotic symptoms at the this moment currently denies. 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 09/19 patient adamant about being able to go home soon. Unaware of cognitive issues Plan 1. Gather collateral information. We will try to contact his family and start working on proper diagnosis and treatment plan. 2. Continue with medications as prescribed. 3. We will continue with medical workout. 4. MRI without contrast done that showed no destruction of pulmonary by this. 5. 15 minute checks since the patient is able to contract for safety.. 6. Start Namenda 5 mg p.o. b.i.d. to target cognitive impairment due to dementia. 7. Even though that his dementia is advanced, we will start Aricept 5 mg p.o. q.h.s. in combination with Namenda since it can help on diminishing the progression of his cognitive impairment. On March 05 we increased Aricept to 10 mg p.o. q.h.s. the plan is to increase over the weekend to Namenda 10 mg p.o. b.i.d. 8. Waiting for placement. 9. Seroquel 25 mg p.o. at 17:00 to avoid ing. 10. Increase Seroquel up 12.5 p.o. b.i.d. on August 17. 11. Start tramadol p.r.n. [id number]-[id number] pain on August 20. 12. On August 22 we are adding Seroquel 25 at bedtime. Total dose of Seroquel 75 mg a day 13. start Keflex 500 mg p.o. b.i.d. for cellulitis the cellulitis resolved. Reason for continued inpatient stay Substantial Risk for: inability to function Time Spent With Patient Time: Total time managing care of this patient today ____ minutes.
[2023-09-27] MEDS: Thiamine HCL 100 MG TABLET PO (09:12)
[2023-09-27] MEDS: Memantine HCl 10 MG TABLET PO ×2 (09:12→20:43)
[2023-09-27] MEDS: QUEtiapine Fumarate 25 MG TABLET 12.5 MG PO ×2 (09:13→13:37)
[2023-09-27] MEDS: Brimonidine Tartrate 0.2% Oph 5 ML BOTTLE 1 DROP EYE-BOTH ×3 (10:06→22:35)
[2023-09-27] MEDS: QUEtiapine Fumarate 25 MG TABLET PO ×2 (16:43→22:58)
[2023-09-27] MEDS: Artificial Tears 15 ML DROPS 1 DROP EYE-BOTH (18:22)
[2023-09-27 20:00] VITALS: BP 144/70; PULSE 77; RESP 18; TEMP 36.6; O2SAT 97
[2023-09-27] MEDS: Donepezil HCl 10 MG TABLET PO (20:42)
[2023-09-27] MEDS: traZODone HCL 50 MG TABLET PO ×2 (20:42→22:58)
[2023-09-27] MEDS: QUEtiapine Fumarate 50 MG TABLET PO (20:43)
[2023-09-27] MEDS: Magnesium Hydrox/Alum Hydrox 30 ML ORAL.SUSP PO (20:43)
[2023-09-28] MEDS: QUEtiapine Fumarate 25 MG TABLET PO ×4 (05:19→22:22)
[2023-09-28 11:05] VITALS: BP 134/69; PULSE 91; RESP 16; TEMP 37; O2SAT 95
[2023-09-28] MEDS: Thiamine HCL 100 MG TABLET PO (11:07)
[2023-09-28] MEDS: Memantine HCl 10 MG TABLET PO ×2 (11:07→20:40)
[2023-09-28] MEDS: QUEtiapine Fumarate 25 MG TABLET 12.5 MG PO ×2 (11:08→15:06)
[2023-09-28] MEDS: Brimonidine Tartrate 0.2% Oph 5 ML BOTTLE 1 DROP EYE-BOTH ×3 (11:08→20:39)
[2023-09-28 20:00] VITALS: BP 134/65; PULSE 87; RESP 16; TEMP 36.8; O2SAT 96
--- NOTE | 2023-09-28 20:05 | P.PNPSI_ITS ---
Subjective Subjective Date of Service: 09/28/23 Reason For Visit: Adjustment disorder,w/mixed disturbance of emotion Interim History: Pt slept through the night. No behavioral concerns. severe anterograde amnesia, repeats questions as to no one has talk to him about plan Review of Systems Review of Systems Denies today Yes all other systems are reviewed and are negative Mental Status Exam Mental Status Exam Patient Appearance: Appropriate Patient Orientation: Person and Place Level of Consciousness: Awake and Appropriate Patient Behavior: Cooperative (but irritable) and Good Eye Contact Mood Description: Constricted Affect Description: Constricted Patient Cognition Impaired: Yes Ability to Follow Directions: Good Speech Pattern: Clear Memory Description: Recent Impaired Diagnostics Vital Signs (24Hr): Vital Signs - 24 hr 09/28/23 11:05 Temperature 98.6 F Pulse Rate 91 Respiratory Rate 16 Blood Pressure 134/69 Pulse Oximetry 95 Oxygen Delivery Method Room Air BMI result Body Mass Index 22.7 Labs 07/29/23 08:35 Imaging Radiology Impressions: ITS Impressions Shoulder X-Ray 07/30/23 09:55 IMPRESSION: 1. No metallic foreign body. 2. Calcification adjacent to the humeral head likely on the basis of calcific tendinosis. Orbit X-Ray 07/30/23 11:07 IMPRESSION: 1. No unexpected radiopaque foreign bodies. 2. Clear lungs. 3. Nonobstructive bowel gas pattern. 4. Moderate to large degree of colonic stool burden. Brain MRI 07/30/23 20:40 IMPRESSION: No acute intracranial abnormality. No findings to suggest Wernicke encephalopathy. Hand X-Ray 08/26/23 09:05 IMPRESSION: No fracture seen. Medications Medications Current Medications Acetaminophen (Acetaminophen 325 Mg Tablet) 650 mg PO Q6H PRN PRN Reason: Headache/Pain (1-10) Last Admin: 09/27/23 06:50 Dose: 650 mg Al Hydroxide/Mg Hydroxide (Magnesium Hydrox/Alum Hydrox 30 Ml Oral.Susp) 30 ml PO Q6H PRN PRN Reason: Heartburn/Nausea Last Admin: 09/27/23 20:43 Dose: 30 ml Artificial Tears (Artificial Tears 15 Ml Drops) 1 drop EYE-BOTH Q4H PRN PRN Reason: Dry Eyes Last Admin: 09/27/23 18:22 Dose: 1 drop Benzocaine (Throat Lozenge, Medicated Lozenge) 1 lozenge MUCOUS MEM Q4H PRN PRN Reason: Sore Throat Brimonidine Tartrate (Brimonidine Tartrate 0.2% Oph 5 Ml Bottle) 1 drop EYE- BOTH TID [facility] Last Admin: 09/28/23 15:07 Dose: 1 drop Donepezil HCl (Donepezil Hcl 10 Mg Tablet) 10 mg PO BEDTIME [facility] Last Admin: 09/27/23 20:42 Dose: 10 mg Guaifenesin (Guaifenesin 200 Mg/10 Ml 10 Ml Liquid) 10 ml PO Q6H PRN PRN Reason: Cough Last Admin: 09/05/23 23:21 Dose: 10 ml Lidocaine (Lidocaine 4 % Patch Adh..Patch) 2 patch TRANSDERMA DAILY PRN; Protocol PRN Reason: bilateral low back pain Last Admin: 09/26/23 04:27 Dose: 2 patch Magnesium Hydroxide (Milk Of Magnesia 30 Ml Oral.Susp) 30 ml PO DAILY PRN PRN Reason: Constipation Last Admin: 08/23/23 08:41 Dose: 30 ml Memantine (Memantine Hcl 10 Mg Tablet) 10 mg PO BID [facility] Last Admin: 09/28/23 11:07 Dose: 10 mg Quetiapine Fumarate (Quetiapine Fumarate 25 Mg Tablet) 25 mg PO BID PRN PRN Reason: anxiety/agitation Last Admin: 09/28/23 05:19 Dose: 25 mg Quetiapine Fumarate (Quetiapine Fumarate 25 Mg Tablet) 25 mg PO DAILY@1700 [facility] Last Admin: 09/28/23 17:29 Dose: 25 mg Quetiapine Fumarate (Quetiapine Fumarate 25 Mg Tablet) 12.5 mg PO BID@0830,1330 [facility] Last Admin: 09/28/23 15:06 Dose: 12.5 mg Quetiapine Fumarate (Quetiapine Fumarate 50 Mg Tablet) 50 mg PO BEDTIME [facility] Last Admin: 09/27/23 20:43 Dose: 50 mg Sumatriptan Succinate (Sumatriptan Succinate 50 Mg Tablet) 50 mg PO DAILY MRX1 PRN PRN Reason: Migraine Headache Last Admin: 09/26/23 16:26 Dose: 50 mg Thiamine HCl (Thiamine Hcl 100 Mg Tablet) 100 mg PO DAILY [facility] Last Admin: 09/28/23 11:07 Dose: 100 mg Trazodone HCl (Trazodone Hcl 50 Mg Tablet) 50 mg PO BEDTIME MRX1 PRN PRN Reason: Insomnia Last Admin: 09/27/23 22:58 Dose: 50 mg Allergies Allergies Allergy/AdvReac Type Severity Reaction Status Date / Time Sulfa (Sulfonamide Allergy Severe ANAPHYLAXIS Verified 08/25/23 23:13 Antibiotics) [SULFA (SULFONAMIDE ANTIBIOTICS)] mold Allergy Intermediate Shortness Verified 08/25/23 22:42 of Breath Assessment & Plan Assessment & Plan (1) Alcohol abuse with alcohol-induced mental disorder: Status: Acute Code(s): F10.188 - Alcohol abuse with other alcohol-induced disorder Plan The patient is a 78-year-old male with a past history of alcohol use disorder who was brought to the emergency room of another hospital for psychotic symptoms at the this moment currently denies. 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 09/19 patient adamant about being able to go home soon. Unaware of cognitive issues Plan 1. Gather collateral information. We will try to contact his family and start working on proper diagnosis and treatment plan. 2. Continue with medications as prescribed. 3. We will continue with medical workout. 4. MRI without contrast done that showed no destruction of pulmonary by this. 5. 15 minute checks since the patient is able to contract for safety.. 6. Start Namenda 5 mg p.o. b.i.d. to target cognitive impairment due to dementia. 7. Even though that his dementia is advanced, we will start Aricept 5 mg p.o. q.h.s. in combination with Namenda since it can help on diminishing the progression of his cognitive impairment. On March 05 we increased Aricept to 10 mg p.o. q.h.s. the plan is to increase over the weekend to Namenda 10 mg p.o. b.i.d. 8. Waiting for placement. 9. Seroquel 25 mg p.o. at 17:00 to avoid . 10. Increase Seroquel up 12.5 p.o. b.i.d. on August 17. 11. Start tramadol p.r.n. [id number] pain on August 20. 12. On August 22 we are adding Seroquel 25 at bedtime. Total dose of Seroquel 75 mg a day 13. start Keflex 500 mg p.o. b.i.d. for cellulitis the cellulitis resolved. Reason for continued inpatient stay Substantial Risk for: inability to function Time Spent With Patient Time: Total time managing care of this patient today ____ minutes.
[2023-09-28] MEDS: SUMAtriptan succinate 50 MG TABLET PO (20:39)
[2023-09-28] MEDS: traZODone HCL 50 MG TABLET PO ×2 (20:39→22:22)
[2023-09-28] MEDS: QUEtiapine Fumarate 50 MG TABLET PO (20:40)
[2023-09-28] MEDS: Donepezil HCl 10 MG TABLET PO (20:40)
[2023-09-29] MEDS: Magnesium Hydrox/Alum Hydrox 30 ML ORAL.SUSP PO (04:18)
[2023-09-29 08:02] VITALS: BP 125/56; PULSE 76; RESP 16; TEMP 36.6; O2SAT 96
[2023-09-29] MEDS: Memantine HCl 10 MG TABLET PO ×2 (08:06→20:39)
[2023-09-29] MEDS: Brimonidine Tartrate 0.2% Oph 5 ML BOTTLE 1 DROP EYE-BOTH ×3 (08:07→21:32)
[2023-09-29] MEDS: Thiamine HCL 100 MG TABLET PO (08:07)
[2023-09-29] MEDS: QUEtiapine Fumarate 25 MG TABLET 12.5 MG PO ×2 (08:07→14:17)
--- NOTE | 2023-09-29 14:21 | P.PNPSI_ITS ---
Subjective Subjective Date of Service: 09/29/23 Reason For Visit: Adjustment disorder,w/mixed disturbance of emotion Subjective Notes: Conditional Voluntary Interim History: The nursing staff reported the patient remains confused at times asking for his wallet and his car keys. On interview the patient denies new symptoms, waiting for placement. Mental Status Exam Mental Status Exam Patient Appearance: Appropriate Patient Orientation: Person and Situation Level of Consciousness: Awake and Appropriate Patient Behavior: Guarded and Passive Mood Description: Withdrawn Affect Description: Constricted Patient Cognition Impaired: Yes Ability to Follow Directions: Good Speech Pattern: Clear Hallucinations: None Delusions: Not Present Thought Process: Distracted and Slowed Thinking Thought Content: positive for [place] and positive for Poverty of Content Judgement: Fair Diagnostics Vital Signs (24Hr): Vital Signs - 24 hr 09/28/23 20:00 09/29/23 08:02 Temperature 98.3 F 97.9 F Pulse Rate 87 76 Respiratory Rate 16 16 Blood Pressure 134/65 125/56 L Pulse Oximetry 96 96 Oxygen Delivery Method Room Air Room Air BMI result Body Mass Index 22.7 Labs 07/29/23 08:35 Imaging Radiology Impressions: ITS Impressions Shoulder X-Ray 07/30/23 09:55 IMPRESSION: 1. No metallic foreign body. 2. Calcification adjacent to the humeral head likely on the basis of calcific tendinosis. Orbit X-Ray 07/30/23 11:07 IMPRESSION: 1. No unexpected radiopaque foreign bodies. 2. Clear lungs. 3. Nonobstructive bowel gas pattern. 4. Moderate to large degree of colonic stool burden. Brain MRI 07/30/23 20:40 IMPRESSION: No acute intracranial abnormality. No findings to suggest Wernicke encephalopathy. Hand X-Ray 08/26/23 09:05 IMPRESSION: No fracture seen. Medications Medications Current Medications Acetaminophen (Acetaminophen 325 Mg Tablet) 650 mg PO Q6H PRN PRN Reason: Headache/Pain (1-10) Last Admin: 09/27/23 06:50 Dose: 650 mg Al Hydroxide/Mg Hydroxide (Magnesium Hydrox/Alum Hydrox 30 Ml Oral.Susp) 30 ml PO Q6H PRN PRN Reason: Heartburn/Nausea Last Admin: 09/29/23 04:18 Dose: 30 ml Artificial Tears (Artificial Tears 15 Ml Drops) 1 drop EYE-BOTH Q4H PRN PRN Reason: Dry Eyes Last Admin: 09/27/23 18:22 Dose: 1 drop Benzocaine (Throat Lozenge, Medicated Lozenge) 1 lozenge MUCOUS MEM Q4H PRN PRN Reason: Sore Throat Brimonidine Tartrate (Brimonidine Tartrate 0.2% Oph 5 Ml Bottle) 1 drop EYE- BOTH TID [facility] Last Admin: 09/29/23 08:07 Dose: 1 drop Donepezil HCl (Donepezil Hcl 10 Mg Tablet) 10 mg PO BEDTIME [facility] Last Admin: 09/28/23 20:40 Dose: 10 mg Guaifenesin (Guaifenesin 200 Mg/10 Ml 10 Ml Liquid) 10 ml PO Q6H PRN PRN Reason: Cough Last Admin: 09/05/23 23:21 Dose: 10 ml Lidocaine (Lidocaine 4 % Patch Adh..Patch) 2 patch TRANSDERMA DAILY PRN; Protocol PRN Reason: bilateral low back pain Last Admin: 09/26/23 04:27 Dose: 2 patch Magnesium Hydroxide (Milk Of Magnesia 30 Ml Oral.Susp) 30 ml PO DAILY PRN PRN Reason: Constipation Last Admin: 08/23/23 08:41 Dose: 30 ml Memantine (Memantine Hcl 10 Mg Tablet) 10 mg PO BID [facility] Last Admin: 09/29/23 08:06 Dose: 10 mg Quetiapine Fumarate (Quetiapine Fumarate 25 Mg Tablet) 25 mg PO BID PRN PRN Reason: anxiety/agitation Last Admin: 09/28/23 22:22 Dose: 25 mg Quetiapine Fumarate (Quetiapine Fumarate 25 Mg Tablet) 25 mg PO DAILY@1700 [facility] Last Admin: 09/28/23 17:29 Dose: 25 mg Quetiapine Fumarate (Quetiapine Fumarate 25 Mg Tablet) 12.5 mg PO BID@0830,1330 [facility] Last Admin: 09/29/23 08:07 Dose: 12.5 mg Quetiapine Fumarate (Quetiapine Fumarate 50 Mg Tablet) 50 mg PO BEDTIME [facility] Last Admin: 09/28/23 20:40 Dose: 50 mg Sumatriptan Succinate (Sumatriptan Succinate 50 Mg Tablet) 50 mg PO DAILY MRX1 PRN PRN Reason: Migraine Headache Last Admin: 09/28/23 20:39 Dose: 50 mg Thiamine HCl (Thiamine Hcl 100 Mg Tablet) 100 mg PO DAILY [facility] Last Admin: 09/29/23 08:07 Dose: 100 mg Trazodone HCl (Trazodone Hcl 50 Mg Tablet) 50 mg PO BEDTIME MRX1 PRN PRN Reason: Insomnia Last Admin: 09/28/23 22:22 Dose: 50 mg Allergies Allergies Allergy/AdvReac Type Severity Reaction Status Date / Time Sulfa (Sulfonamide Allergy Severe ANAPHYLAXIS Verified 08/25/23 23:13 Antibiotics) [SULFA (SULFONAMIDE ANTIBIOTICS)] mold Allergy Intermediate Shortness Verified 08/25/23 22:42 of Breath Assessment & Plan Assessment & Plan (1) Alcohol abuse with alcohol-induced mental disorder: Status: Acute Code(s): F10.188 - Alcohol abuse with other alcohol-induced disorder Plan The patient is a 78-year-old male with a past history of alcohol use disorder who was brought to the emergency room of another hospital for psychotic symptoms at the this moment currently denies. 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 09/19 patient adamant about being able to go home soon. Unaware of cognitive issues Plan 1. Gather collateral information. We will try to contact his family and start working on proper diagnosis and treatment plan. 2. Continue with medications as prescribed. 3. We will continue with medical workout. 4. MRI without contrast done that showed no destruction of pulmonary by this. 5. 15 minute checks since the patient is able to contract for safety.. 6. Start Namenda 5 mg p.o. b.i.d. to target cognitive impairment due to dementia. 7. Even though that his dementia is advanced, we will start Aricept 5 mg p.o. q.h.s. in combination with Namenda since it can help on diminishing the progression of his cognitive impairment. On March 05 we increased Aricept to 10 mg p.o. q.h.s. the plan is to increase over the weekend to Namenda 10 mg p.o. b.i.d. 8. Waiting for placement. 9. Seroquel 25 mg p.o. at 17:00 to avoid ing. 10. Increase Seroquel up 12.5 p.o. b.i.d. on August 17. 11. Start tramadol p.r.n. [id number] pain on August 20. 12. On August 22 we are adding Seroquel 25 at bedtime. Total dose of Seroquel 75 mg a day 13. start Keflex 500 mg p.o. b.i.d. for cellulitis the cellulitis resolved. Reason for continued inpatient stay Substantial Risk for: inability to function, rapid decompensation and med/psych decompensation Time Spent With Patient Time: Total time managing care of this patient today __20__ minutes.
[2023-09-29] MEDS: QUEtiapine Fumarate 25 MG TABLET PO (17:08)
[2023-09-29 20:00] VITALS: BP 141/67; PULSE 80; RESP 18; TEMP 36.7; O2SAT 93
[2023-09-29] MEDS: traZODone HCL 50 MG TABLET PO (20:39)
[2023-09-29] MEDS: QUEtiapine Fumarate 50 MG TABLET PO (20:39)
[2023-09-29] MEDS: Donepezil HCl 10 MG TABLET PO (20:39)
[2023-09-30 08:24] VITALS: BP 143/70; PULSE 77; RESP 15; TEMP 36.5; O2SAT 95
[2023-09-30] MEDS: QUEtiapine Fumarate 25 MG TABLET 12.5 MG PO ×2 (08:26→13:22)
[2023-09-30] MEDS: Artificial Tears 15 ML DROPS 1 DROP EYE-BOTH (08:27)
[2023-09-30] MEDS: Memantine HCl 10 MG TABLET PO ×2 (08:27→20:39)
[2023-09-30] MEDS: Thiamine HCL 100 MG TABLET PO (08:27)
[2023-09-30] MEDS: Brimonidine Tartrate 0.2% Oph 5 ML BOTTLE 1 DROP EYE-BOTH ×3 (08:43→20:38)
--- NOTE | 2023-09-30 16:25 | P.PNPSI_ITS ---
Subjective Subjective Date of Service: 09/30/23 Reason For Visit: Adjustment disorder,w/mixed disturbance of emotion Subjective Notes: Conditional Voluntary Interim History: The nursing staff reported the patient is pleasantly confused easily redirectable. On interview the patient denies new symptoms, waiting for placement. Mental Status Exam Mental Status Exam Patient Appearance: Appropriate Patient Orientation: Person and Situation Level of Consciousness: Awake and Appropriate Patient Behavior: Guarded and Passive Mood Description: Withdrawn Affect Description: Calm Patient Cognition Impaired: Yes Ability to Follow Directions: Good Speech Pattern: Clear Hallucinations: None Delusions: Not Present Thought Process: Distracted and Slowed Thinking Thought Content: positive for [place] and positive for Poverty of Content Judgement: Fair Diagnostics Vital Signs (24Hr): Vital Signs - 24 hr 09/29/23 20:00 09/30/23 08:24 Temperature 98.1 F 97.7 F Pulse Rate 80 77 Respiratory Rate 18 15 Blood Pressure 141/67 H 143/70 H Pulse Oximetry 93 95 Oxygen Delivery Method Room Air Room Air BMI result Body Mass Index 22.7 Labs 07/29/23 08:35 Imaging Radiology Impressions: ITS Impressions Shoulder X-Ray 07/30/23 09:55 IMPRESSION: 1. No metallic foreign body. 2. Calcification adjacent to the humeral head likely on the basis of calcific tendinosis. Orbit X-Ray 07/30/23 11:07 IMPRESSION: 1. No unexpected radiopaque foreign bodies. 2. Clear lungs. 3. Nonobstructive bowel gas pattern. 4. Moderate to large degree of colonic stool burden. Brain MRI 07/30/23 20:40 IMPRESSION: No acute intracranial abnormality. No findings to suggest Wernicke encephalopathy. Hand X-Ray 08/26/23 09:05 IMPRESSION: No fracture seen. Medications Medications Current Medications Acetaminophen (Acetaminophen 325 Mg Tablet) 650 mg PO Q6H PRN PRN Reason: Headache/Pain (1-10) Last Admin: 09/27/23 06:50 Dose: 650 mg Al Hydroxide/Mg Hydroxide (Magnesium Hydrox/Alum Hydrox 30 Ml Oral.Susp) 30 ml PO Q6H PRN PRN Reason: Heartburn/Nausea Last Admin: 09/29/23 04:18 Dose: 30 ml Artificial Tears (Artificial Tears 15 Ml Drops) 1 drop EYE-BOTH Q4H PRN PRN Reason: Dry Eyes Last Admin: 09/30/23 08:27 Dose: 1 drop Benzocaine (Throat Lozenge, Medicated Lozenge) 1 lozenge MUCOUS MEM Q4H PRN PRN Reason: Sore Throat Brimonidine Tartrate (Brimonidine Tartrate 0.2% Oph 5 Ml Bottle) 1 drop EYE- BOTH TID [facility] Last Admin: 09/30/23 08:43 Dose: 1 drop Donepezil HCl (Donepezil Hcl 10 Mg Tablet) 10 mg PO BEDTIME [facility] Last Admin: 09/29/23 20:39 Dose: 10 mg Guaifenesin (Guaifenesin 200 Mg/10 Ml 10 Ml Liquid) 10 ml PO Q6H PRN PRN Reason: Cough Last Admin: 09/05/23 23:21 Dose: 10 ml Lidocaine (Lidocaine 4 % Patch Adh..Patch) 2 patch TRANSDERMA DAILY PRN; Protocol PRN Reason: bilateral low back pain Last Admin: 09/26/23 04:27 Dose: 2 patch Magnesium Hydroxide (Milk Of Magnesia 30 Ml Oral.Susp) 30 ml PO DAILY PRN PRN Reason: Constipation Last Admin: 08/23/23 08:41 Dose: 30 ml Memantine (Memantine Hcl 10 Mg Tablet) 10 mg PO BID [facility] Last Admin: 09/30/23 08:27 Dose: 10 mg Quetiapine Fumarate (Quetiapine Fumarate 25 Mg Tablet) 25 mg PO BID PRN PRN Reason: anxiety/agitation Last Admin: 09/28/23 22:22 Dose: 25 mg Quetiapine Fumarate (Quetiapine Fumarate 25 Mg Tablet) 25 mg PO DAILY@1700 [facility] Last Admin: 09/29/23 17:08 Dose: 25 mg Quetiapine Fumarate (Quetiapine Fumarate 25 Mg Tablet) 12.5 mg PO BID@0830,1330 [facility] Last Admin: 09/30/23 13:22 Dose: 12.5 mg Quetiapine Fumarate (Quetiapine Fumarate 50 Mg Tablet) 50 mg PO BEDTIME [facility] Last Admin: 09/29/23 20:39 Dose: 50 mg Sumatriptan Succinate (Sumatriptan Succinate 50 Mg Tablet) 50 mg PO DAILY MRX1 PRN PRN Reason: Migraine Headache Last Admin: 09/28/23 20:39 Dose: 50 mg Thiamine HCl (Thiamine Hcl 100 Mg Tablet) 100 mg PO DAILY [facility] Last Admin: 09/30/23 08:27 Dose: 100 mg Trazodone HCl (Trazodone Hcl 50 Mg Tablet) 50 mg PO BEDTIME MRX1 PRN PRN Reason: Insomnia Last Admin: 09/29/23 20:39 Dose: 50 mg Allergies Allergies Allergy/AdvReac Type Severity Reaction Status Date / Time Sulfa (Sulfonamide Allergy Severe ANAPHYLAXIS Verified 08/25/23 23:13 Antibiotics) [SULFA (SULFONAMIDE ANTIBIOTICS)] mold Allergy Intermediate Shortness Verified 08/25/23 22:42 of Breath Assessment & Plan Assessment & Plan (1) Alcohol abuse with alcohol-induced mental disorder: Status: Acute Code(s): F10.188 - Alcohol abuse with other alcohol-induced disorder Plan The patient is a 78-year-old male with a past history of alcohol use disorder who was brought to the emergency room of another hospital for psychotic symptoms at the this moment currently denies. 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 09/19 patient adamant about being able to go home soon. Unaware of cognitive issues Plan 1. Gather collateral information. We will try to contact his family and start working on proper diagnosis and treatment plan. 2. Continue with medications as prescribed. 3. We will continue with medical workout. 4. MRI without contrast done that showed no destruction of pulmonary by this. 5. 15 minute checks since the patient is able to contract for safety.. 6. Start Namenda 5 mg p.o. b.i.d. to target cognitive impairment due to dementia. 7. Even though that his dementia is advanced, we will start Aricept 5 mg p.o. q.h.s. in combination with Namenda since it can help on diminishing the progression of his cognitive impairment. On March 05 we increased Aricept to 10 mg p.o. q.h.s. the plan is to increase over the weekend to Namenda 10 mg p.o. b.i.d. 8. Waiting for placement. 9. Seroquel 25 mg p.o. at 17:00 to avoid . 10. Increase Seroquel up 12.5 p.o. b.i.d. on August 17. 11. Start tramadol p.r.n. [id number] pain on August 20. 12. On August 22 we are adding Seroquel 25 at bedtime. Total dose of Seroquel 75 mg a day 13. start Keflex 500 mg p.o. b.i.d. for cellulitis the cellulitis resolved. Reason for continued inpatient stay Substantial Risk for: inability to function, rapid decompensation and med/psych decompensation Time Spent With Patient Time: Total time managing care of this patient today __20__ minutes.
[2023-09-30] MEDS: QUEtiapine Fumarate 25 MG TABLET PO (18:38)
[2023-09-30 20:00] VITALS: BP 143/66; PULSE 72; RESP 18; TEMP 36.3; O2SAT 96
[2023-09-30] MEDS: traZODone HCL 50 MG TABLET PO (20:39)
[2023-09-30] MEDS: Donepezil HCl 10 MG TABLET PO (20:39)
[2023-09-30] MEDS: QUEtiapine Fumarate 50 MG TABLET PO (20:39)
[2023-10-01 08:00] VITALS: BP 142/70; PULSE 81; RESP 16; TEMP 36.3; O2SAT 98
[2023-10-01] MEDS: Thiamine HCL 100 MG TABLET PO (08:30)
[2023-10-01] MEDS: Memantine HCl 10 MG TABLET PO ×2 (08:30→21:03)
[2023-10-01] MEDS: Brimonidine Tartrate 0.2% Oph 5 ML BOTTLE 1 DROP EYE-BOTH ×3 (08:31→21:04)
[2023-10-01] MEDS: QUEtiapine Fumarate 25 MG TABLET 12.5 MG PO ×2 (08:33→13:01)
--- NOTE | 2023-10-01 12:59 | P.PNPSI_ITS ---
Subjective Subjective Date of Service: 10/01/23 Reason For Visit: Adjustment disorder,w/mixed disturbance of emotion Subjective Notes: Conditional Voluntary Interim History: The nursing staff reported the patient is pleasantly confused no changes in his mental status. 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 On interview the patient denies new symptoms pleasantly confused, easily redirectable. Waiting for placement. Mental Status Exam Mental Status Exam Patient Appearance: Appropriate Patient Orientation: Person and Situation Level of Consciousness: Awake and Appropriate Patient Behavior: Guarded and Passive Mood Description: Withdrawn Affect Description: Constricted Patient Cognition Impaired: Yes Ability to Follow Directions: Good Speech Pattern: Clear Hallucinations: None Delusions: Not Present Thought Process: Distracted and Slowed Thinking Thought Content: positive for [place] and positive for Poverty of Content Judgement: Poor Diagnostics Vital Signs (24Hr): Vital Signs - 24 hr 09/30/23 20:00 10/01/23 08:00 Temperature 97.3 F 97.3 F Pulse Rate 72 81 Respiratory Rate 18 16 Blood Pressure 143/66 H 142/70 H Pulse Oximetry 96 98 Oxygen Delivery Method Room Air Room Air BMI result Body Mass Index 22.7 Labs 07/29/23 08:35 Imaging Radiology Impressions: ITS Impressions Shoulder X-Ray 07/30/23 09:55 IMPRESSION: 1. No metallic foreign body. 2. Calcification adjacent to the humeral head likely on the basis of calcific tendinosis. Orbit X-Ray 07/30/23 11:07 IMPRESSION: 1. No unexpected radiopaque foreign bodies. 2. Clear lungs. 3. Nonobstructive bowel gas pattern. 4. Moderate to large degree of colonic stool burden. Brain MRI 07/30/23 20:40 IMPRESSION: No acute intracranial abnormality. No findings to suggest Wernicke encephalopathy. Hand X-Ray 08/26/23 09:05 IMPRESSION: No fracture seen. Medications Medications Current Medications Acetaminophen (Acetaminophen 325 Mg Tablet) 650 mg PO Q6H PRN PRN Reason: Headache/Pain (1-10) Last Admin: 09/27/23 06:50 Dose: 650 mg Al Hydroxide/Mg Hydroxide (Magnesium Hydrox/Alum Hydrox 30 Ml Oral.Susp) 30 ml PO Q6H PRN PRN Reason: Heartburn/Nausea Last Admin: 09/29/23 04:18 Dose: 30 ml Artificial Tears (Artificial Tears 15 Ml Drops) 1 drop EYE-BOTH Q4H PRN PRN Reason: Dry Eyes Last Admin: 09/30/23 08:27 Dose: 1 drop Benzocaine (Throat Lozenge, Medicated Lozenge) 1 lozenge MUCOUS MEM Q4H PRN PRN Reason: Sore Throat Brimonidine Tartrate (Brimonidine Tartrate 0.2% Oph 5 Ml Bottle) 1 drop EYE- BOTH TID [facility] Last Admin: 10/01/23 08:31 Dose: 1 drop Donepezil HCl (Donepezil Hcl 10 Mg Tablet) 10 mg PO BEDTIME [facility] Last Admin: 09/30/23 20:39 Dose: 10 mg Guaifenesin (Guaifenesin 200 Mg/10 Ml 10 Ml Liquid) 10 ml PO Q6H PRN PRN Reason: Cough Last Admin: 09/05/23 23:21 Dose: 10 ml Lidocaine (Lidocaine 4 % Patch Adh..Patch) 2 patch TRANSDERMA DAILY PRN; Protocol PRN Reason: bilateral low back pain Last Admin: 09/26/23 04:27 Dose: 2 patch Magnesium Hydroxide (Milk Of Magnesia 30 Ml Oral.Susp) 30 ml PO DAILY PRN PRN Reason: Constipation Last Admin: 08/23/23 08:41 Dose: 30 ml Memantine (Memantine Hcl 10 Mg Tablet) 10 mg PO BID [facility] Last Admin: 10/01/23 08:30 Dose: 10 mg Quetiapine Fumarate (Quetiapine Fumarate 25 Mg Tablet) 25 mg PO BID PRN PRN Reason: anxiety/agitation Last Admin: 09/28/23 22:22 Dose: 25 mg Quetiapine Fumarate (Quetiapine Fumarate 25 Mg Tablet) 25 mg PO DAILY@1700 [facility] Last Admin: 09/30/23 18:38 Dose: 25 mg Quetiapine Fumarate (Quetiapine Fumarate 25 Mg Tablet) 12.5 mg PO BID@0830,1330 [facility] Last Admin: 10/01/23 08:33 Dose: 12.5 mg Quetiapine Fumarate (Quetiapine Fumarate 50 Mg Tablet) 50 mg PO BEDTIME [facility] Last Admin: 09/30/23 20:39 Dose: 50 mg Sumatriptan Succinate (Sumatriptan Succinate 50 Mg Tablet) 50 mg PO DAILY MRX1 PRN PRN Reason: Migraine Headache Last Admin: 09/28/23 20:39 Dose: 50 mg Thiamine HCl (Thiamine Hcl 100 Mg Tablet) 100 mg PO DAILY [facility] Last Admin: 10/01/23 08:30 Dose: 100 mg Trazodone HCl (Trazodone Hcl 50 Mg Tablet) 50 mg PO BEDTIME MRX1 PRN PRN Reason: Insomnia Last Admin: 09/30/23 20:39 Dose: 50 mg Allergies Allergies Allergy/AdvReac Type Severity Reaction Status Date / Time Sulfa (Sulfonamide Allergy Severe ANAPHYLAXIS Verified 08/25/23 23:13 Antibiotics) [SULFA (SULFONAMIDE ANTIBIOTICS)] mold Allergy Intermediate Shortness Verified 08/25/23 22:42 of Breath Assessment & Plan Assessment & Plan (1) Alcohol abuse with alcohol-induced mental disorder: Status: Acute Code(s): F10.188 - Alcohol abuse with other alcohol-induced disorder Plan The patient is a 78-year-old male with a past history of alcohol use disorder who was brought to the emergency room of another hospital for psychotic symptoms at the this moment currently denies. 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 09/19 patient adamant about being able to go home soon. Unaware of cognitive issues Plan 1. Gather collateral information. We will try to contact his family and start working on proper diagnosis and treatment plan. 2. Continue with medications as prescribed. 3. We will continue with medical workout. 4. MRI without contrast done that showed no destruction of pulmonary by this. 5. 15 minute checks since the patient is able to contract for safety.. 6. Start Namenda 5 mg p.o. b.i.d. to target cognitive impairment due to dementia. 7. Even though that his dementia is advanced, we will start Aricept 5 mg p.o. q.h.s. in combination with Namenda since it can help on diminishing the progression of his cognitive impairment. On March 05 we increased Aricept to 10 mg p.o. q.h.s. the plan is to increase over the weekend to Namenda 10 mg p.o. b.i.d. 8. Waiting for placement. 9. Seroquel 25 mg p.o. at 17:00 to avoid ing. 10. Increase Seroquel up 12.5 p.o. b.i.d. on August 17. 11. Start tramadol p.r.n. [id number] pain on August 20. 12. On August 22 we are adding Seroquel 25 at bedtime. Total dose of Seroquel 75 mg a day 13. start Keflex 500 mg p.o. b.i.d. for cellulitis the cellulitis resolved. Reason for continued inpatient stay Substantial Risk for: inability to function, rapid decompensation and med/psych decompensation Time Spent With Patient Time: Total time managing care of this patient today __20__ minutes.
[2023-10-01] MEDS: QUEtiapine Fumarate 25 MG TABLET PO (17:07)
[2023-10-01 20:00] VITALS: BP 127/59; PULSE 80; RESP 16; TEMP 36.3; O2SAT 95
[2023-10-01] MEDS: Donepezil HCl 10 MG TABLET PO (21:03)
[2023-10-01] MEDS: QUEtiapine Fumarate 50 MG TABLET PO (21:03)
[2023-10-01] MEDS: Magnesium Hydrox/Alum Hydrox 30 ML ORAL.SUSP PO (23:30)
[2023-10-02 09:11] VITALS: BMI 23.0
[2023-10-02 09:56] VITALS: BP 123/61; PULSE 70; RESP 15; TEMP 36.2; O2SAT 97
[2023-10-02] MEDS: SUMAtriptan succinate 50 MG TABLET PO (09:56)
[2023-10-02] MEDS: Brimonidine Tartrate 0.2% Oph 5 ML BOTTLE 1 DROP EYE-BOTH ×3 (09:57→20:52)
[2023-10-02] MEDS: QUEtiapine Fumarate 25 MG TABLET 12.5 MG PO ×2 (09:57→13:52)
[2023-10-02] MEDS: Thiamine HCL 100 MG TABLET PO (09:57)
[2023-10-02] MEDS: Memantine HCl 10 MG TABLET PO ×2 (09:57→20:52)
--- NOTE | 2023-10-02 16:58 | HO.PSYCHPN ---
Subjective Subjective Date of Service: 10/02/23 Reason For Visit: Adjustment disorder,w/mixed disturbance of emotion Subjective Notes: Conditional Voluntary Interim History: The nursing staff reported no changes in mental status confused easily redirectable. On interview denies new symptoms asking for his discharge plan, unable to remember conversations from before. Waiting for placement. Mental Status Exam Mental Status Exam Patient Appearance: Appropriate Patient Orientation: Person Level of Consciousness: Awake Patient Behavior: Guarded and Passive Mood Description: Withdrawn Affect Description: Constricted Patient Cognition Impaired: Yes Ability to Follow Directions: Good Speech Pattern: Clear Hallucinations: None Delusions: Not Present Thought Process: Distracted and Slowed Thinking Thought Content: positive for [place] and positive for Poverty of Content Judgement: Fair Diagnostics Vital Signs (24Hr): Vital Signs - 24 hr 10/01/23 20:00 10/02/23 09:56 Temperature 97.3 F 97.1 F Pulse Rate 80 70 Respiratory Rate 16 15 Blood Pressure 127/59 L 123/61 Pulse Oximetry 95 97 Oxygen Delivery Method Room Air Room Air BMI result Body Mass Index 23.0 Labs 07/29/23 08:35 Imaging Radiology Impressions: ITS Impressions Shoulder X-Ray 07/30/23 09:55 IMPRESSION: 1. No metallic foreign body. 2. Calcification adjacent to the humeral head likely on the basis of calcific tendinosis. Orbit X-Ray 07/30/23 11:07 IMPRESSION: 1. No unexpected radiopaque foreign bodies. 2. Clear lungs. 3. Nonobstructive bowel gas pattern. 4. Moderate to large degree of colonic stool burden. Brain MRI 07/30/23 20:40 IMPRESSION: No acute intracranial abnormality. No findings to suggest Wernicke encephalopathy. Hand X-Ray 08/26/23 09:05 IMPRESSION: No fracture seen. Medications Medications Current Medications Acetaminophen (Acetaminophen 325 Mg Tablet) 650 mg PO Q6H PRN PRN Reason: Headache/Pain (1-10) Last Admin: 09/27/23 06:50 Dose: 650 mg Al Hydroxide/Mg Hydroxide (Magnesium Hydrox/Alum Hydrox 30 Ml Oral.Susp) 30 ml PO Q6H PRN PRN Reason: Heartburn/Nausea Last Admin: 10/01/23 23:30 Dose: 30 ml Artificial Tears (Artificial Tears 15 Ml Drops) 1 drop EYE-BOTH Q4H PRN PRN Reason: Dry Eyes Last Admin: 09/30/23 08:27 Dose: 1 drop Benzocaine (Throat Lozenge, Medicated Lozenge) 1 lozenge MUCOUS MEM Q4H PRN PRN Reason: Sore Throat Brimonidine Tartrate (Brimonidine Tartrate 0.2% Oph 5 Ml Bottle) 1 drop EYE-BOTH TID [facility] Last Admin: 10/02/23 15:42 Dose: 1 drop Donepezil HCl (Donepezil Hcl 10 Mg Tablet) 10 mg PO BEDTIME [facility] Last Admin: 10/01/23 21:03 Dose: 10 mg Guaifenesin (Guaifenesin 200 Mg/10 Ml 10 Ml Liquid) 10 ml PO Q6H PRN PRN Reason: Cough Last Admin: 09/05/23 23:21 Dose: 10 ml Lidocaine (Lidocaine 4 % Patch Adh..Patch) 2 patch TRANSDERMA DAILY PRN; Protocol PRN Reason: bilateral low back pain Last Admin: 09/26/23 04:27 Dose: 2 patch Magnesium Hydroxide (Milk Of Magnesia 30 Ml Oral.Susp) 30 ml PO DAILY PRN PRN Reason: Constipation Last Admin: 08/23/23 08:41 Dose: 30 ml Memantine (Memantine Hcl 10 Mg Tablet) 10 mg PO BID [facility] Last Admin: 10/02/23 09:57 Dose: 10 mg Quetiapine Fumarate (Quetiapine Fumarate 25 Mg Tablet) 25 mg PO BID PRN PRN Reason: anxiety/agitation Last Admin: 09/28/23 22:22 Dose: 25 mg Quetiapine Fumarate (Quetiapine Fumarate 25 Mg Tablet) 25 mg PO DAILY@1700 [facility] Last Admin: 10/01/23 17:07 Dose: 25 mg Quetiapine Fumarate (Quetiapine Fumarate 25 Mg Tablet) 12.5 mg PO BID@0830,1330 [facility] Last Admin: 10/02/23 13:52 Dose: 12.5 mg Quetiapine Fumarate (Quetiapine Fumarate 50 Mg Tablet) 50 mg PO BEDTIME [facility] Last Admin: 10/01/23 21:03 Dose: 50 mg Sumatriptan Succinate (Sumatriptan Succinate 50 Mg Tablet) 50 mg PO DAILY MRX1 PRN PRN Reason: Migraine Headache Last Admin: 10/02/23 09:56 Dose: 50 mg Thiamine HCl (Thiamine Hcl 100 Mg Tablet) 100 mg PO DAILY [facility] Last Admin: 10/02/23 09:57 Dose: 100 mg Trazodone HCl (Trazodone Hcl 50 Mg Tablet) 50 mg PO BEDTIME MRX1 PRN PRN Reason: Insomnia Last Admin: 09/30/23 20:39 Dose: 50 mg Allergies Allergies Allergy/AdvReac Type Severity Reaction Status Date / Time Sulfa (Sulfonamide Allergy Severe ANAPHYLAXIS Verified 08/25/23 23:13 Antibiotics) [SULFA (SULFONAMIDE ANTIBIOTICS)] mold Allergy Intermediate Shortness Verified 08/25/23 22:42 of Breath Assessment & Plan Assessment & Plan (1) Alcohol abuse with alcohol-induced mental disorder: Status: Acute Code(s): F10.188 - Alcohol abuse with other alcohol-induced disorder Plan The patient is a 78-year-old male with a past history of alcohol use disorder who was brought to the emergency room of another hospital for psychotic symptoms at the this moment currently denies. 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 09/19 patient adamant about being able to go home soon. Unaware of cognitive issues Plan 1. Gather collateral information. We will try to contact his family and start working on proper diagnosis and treatment plan. 2. Continue with medications as prescribed. 3. We will continue with medical workout. 4. MRI without contrast done that showed no destruction of pulmonary by this. 5. 15 minute checks since the patient is able to contract for safety.. 6. Start Namenda 5 mg p.o. b.i.d. to target cognitive impairment due to dementia. 7. Even though that his dementia is advanced, we will start Aricept 5 mg p.o. q.h.s. in combination with Namenda since it can help on diminishing the progression of his cognitive impairment. On March 05 we increased Aricept to 10 mg p.o. q.h.s. the plan is to increase over the weekend to Namenda 10 mg p.o. b.i.d. 8. Waiting for placement. 9. Seroquel 25 mg p.o. at 17:00 to avoid ing. 10. Increase Seroquel up 12.5 p.o. b.i.d. on August 17. 11. Start tramadol p.r.n. [id number] pain on August 20. 12. On August 22 we are adding Seroquel 25 at bedtime. Total dose of Seroquel 75 mg a day 13. start Keflex 500 mg p.o. b.i.d. for cellulitis the cellulitis resolved. Reason for continued inpatient stay Substantial Risk for: inability to function, rapid decompensation and med/psych decompensation Time Spent With Patient Time: Total time managing care of this patient today __20__ minutes.
[2023-10-02] MEDS: QUEtiapine Fumarate 25 MG TABLET PO (18:00)
[2023-10-02 19:48] VITALS: BP 171/79; PULSE 86; RESP 16; TEMP 36.4; O2SAT 96
[2023-10-02] MEDS: Donepezil HCl 10 MG TABLET PO (20:52)
[2023-10-02] MEDS: QUEtiapine Fumarate 50 MG TABLET PO (20:52)
[2023-10-03 10:12] VITALS: BP 163/77; PULSE 87; RESP 15; TEMP 36.4; O2SAT 96
[2023-10-03] MEDS: Brimonidine Tartrate 0.2% Oph 5 ML BOTTLE 1 DROP EYE-BOTH ×3 (10:13→20:00)
[2023-10-03] MEDS: Thiamine HCL 100 MG TABLET PO (10:14)
[2023-10-03] MEDS: Memantine HCl 10 MG TABLET PO ×2 (10:14→19:59)
[2023-10-03] MEDS: QUEtiapine Fumarate 25 MG TABLET 12.5 MG PO ×2 (10:14→14:19)
--- NOTE | 2023-10-03 15:44 | P.PNPSI_ITS ---
Subjective Subjective Date of Service: 10/03/23 Reason For Visit: Adjustment disorder,w/mixed disturbance of emotion Subjective Notes: Conditional Voluntary Interim History: The nursing staff reported the patient is pleasantly confused, easily redirectable. On interview the patient is perseverative regarding his wallet and his car keys. Waiting for placement. Mental Status Exam Mental Status Exam Patient Appearance: Appropriate Patient Orientation: Person and Situation Level of Consciousness: Awake and Appropriate Patient Behavior: Guarded and Passive Mood Description: Calm Affect Description: Constricted Patient Cognition Impaired: Yes Ability to Follow Directions: Good Speech Pattern: Clear Hallucinations: None Delusions: Not Present Thought Process: Distracted and Slowed Thinking Thought Content: positive for [place] and positive for Poverty of Content Judgement: Poor Diagnostics Vital Signs (24Hr): Vital Signs - 24 hr 10/02/23 19:48 10/03/23 10:12 Temperature 97.6 F 97.5 F Pulse Rate 86 87 Respiratory Rate 16 15 Blood Pressure 171/79 H 163/77 H Pulse Oximetry 96 96 Oxygen Delivery Method Room Air Room Air BMI result Body Mass Index 23.0 Labs 07/29/23 08:35 Imaging Radiology Impressions: ITS Impressions Shoulder X-Ray 07/30/23 09:55 IMPRESSION: 1. No metallic foreign body. 2. Calcification adjacent to the humeral head likely on the basis of calcific tendinosis. Orbit X-Ray 07/30/23 11:07 IMPRESSION: 1. No unexpected radiopaque foreign bodies. 2. Clear lungs. 3. Nonobstructive bowel gas pattern. 4. Moderate to large degree of colonic stool burden. Brain MRI 07/30/23 20:40 IMPRESSION: No acute intracranial abnormality. No findings to suggest Wernicke encephalopathy. Hand X-Ray 08/26/23 09:05 IMPRESSION: No fracture seen. Medications Medications Current Medications Acetaminophen (Acetaminophen 325 Mg Tablet) 650 mg PO Q6H PRN PRN Reason: Headache/Pain (1-10) Last Admin: 09/27/23 06:50 Dose: 650 mg Al Hydroxide/Mg Hydroxide (Magnesium Hydrox/Alum Hydrox 30 Ml Oral.Susp) 30 ml PO Q6H PRN PRN Reason: Heartburn/Nausea Last Admin: 10/01/23 23:30 Dose: 30 ml Artificial Tears (Artificial Tears 15 Ml Drops) 1 drop EYE-BOTH Q4H PRN PRN Reason: Dry Eyes Last Admin: 09/30/23 08:27 Dose: 1 drop Benzocaine (Throat Lozenge, Medicated Lozenge) 1 lozenge MUCOUS MEM Q4H PRN PRN Reason: Sore Throat Brimonidine Tartrate (Brimonidine Tartrate 0.2% Oph 5 Ml Bottle) 1 drop EYE- BOTH TID [facility] Last Admin: 10/03/23 14:20 Dose: 1 drop Donepezil HCl (Donepezil Hcl 10 Mg Tablet) 10 mg PO BEDTIME [facility] Last Admin: 10/02/23 20:52 Dose: 10 mg Guaifenesin (Guaifenesin 200 Mg/10 Ml 10 Ml Liquid) 10 ml PO Q6H PRN PRN Reason: Cough Last Admin: 09/05/23 23:21 Dose: 10 ml Lidocaine (Lidocaine 4 % Patch Adh..Patch) 2 patch TRANSDERMA DAILY PRN; Protocol PRN Reason: bilateral low back pain Last Admin: 09/26/23 04:27 Dose: 2 patch Magnesium Hydroxide (Milk Of Magnesia 30 Ml Oral.Susp) 30 ml PO DAILY PRN PRN Reason: Constipation Last Admin: 08/23/23 08:41 Dose: 30 ml Memantine (Memantine Hcl 10 Mg Tablet) 10 mg PO BID [facility] Last Admin: 10/03/23 10:14 Dose: 10 mg Quetiapine Fumarate (Quetiapine Fumarate 25 Mg Tablet) 25 mg PO BID PRN PRN Reason: anxiety/agitation Last Admin: 09/28/23 22:22 Dose: 25 mg Quetiapine Fumarate (Quetiapine Fumarate 25 Mg Tablet) 25 mg PO DAILY@1700 [facility] Last Admin: 10/02/23 18:00 Dose: 25 mg Quetiapine Fumarate (Quetiapine Fumarate 25 Mg Tablet) 12.5 mg PO BID@0830,1330 [facility] Last Admin: 10/03/23 14:19 Dose: 12.5 mg Quetiapine Fumarate (Quetiapine Fumarate 50 Mg Tablet) 50 mg PO BEDTIME [facility] Last Admin: 10/02/23 20:52 Dose: 50 mg Sumatriptan Succinate (Sumatriptan Succinate 50 Mg Tablet) 50 mg PO DAILY MRX1 PRN PRN Reason: Migraine Headache Last Admin: 10/02/23 09:56 Dose: 50 mg Thiamine HCl (Thiamine Hcl 100 Mg Tablet) 100 mg PO DAILY [facility] Last Admin: 10/03/23 10:14 Dose: 100 mg Trazodone HCl (Trazodone Hcl 50 Mg Tablet) 50 mg PO BEDTIME MRX1 PRN PRN Reason: Insomnia Last Admin: 09/30/23 20:39 Dose: 50 mg Allergies Allergies Allergy/AdvReac Type Severity Reaction Status Date / Time Sulfa (Sulfonamide Allergy Severe ANAPHYLAXIS Verified 08/25/23 23:13 Antibiotics) [SULFA (SULFONAMIDE ANTIBIOTICS)] mold Allergy Intermediate Shortness Verified 08/25/23 22:42 of Breath Assessment & Plan Assessment & Plan (1) Alcohol abuse with alcohol-induced mental disorder: Status: Acute Code(s): F10.188 - Alcohol abuse with other alcohol-induced disorder Plan The patient is a 78-year-old male with a past history of alcohol use disorder who was brought to the emergency room of another hospital for psychotic symptoms at the this moment currently denies. 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 09/19 patient adamant about being able to go home soon. Unaware of cognitive issues Plan 1. Gather collateral information. We will try to contact his family and start working on proper diagnosis and treatment plan. 2. Continue with medications as prescribed. 3. We will continue with medical workout. 4. MRI without contrast done that showed no destruction of pulmonary by this. 5. 15 minute checks since the patient is able to contract for safety.. 6. Start Namenda 5 mg p.o. b.i.d. to target cognitive impairment due to dementia. 7. Even though that his dementia is advanced, we will start Aricept 5 mg p.o. q.h.s. in combination with Namenda since it can help on diminishing the progression of his cognitive impairment. On March 05 we increased Aricept to 10 mg p.o. q.h.s. the plan is to increase over the weekend to Namenda 10 mg p.o. b.i.d. 8. Waiting for placement. 9. Seroquel 25 mg p.o. at 17:00 to avoid ing. 10. Increase Seroquel up 12.5 p.o. b.i.d. on August 17. 11. Start tramadol p.r.n. [id number] pain on August 20. 12. On August 22 we are adding Seroquel 25 at bedtime. Total dose of Seroquel 75 mg a day 13. start Keflex 500 mg p.o. b.i.d. for cellulitis the cellulitis resolved. Reason for continued inpatient stay Substantial Risk for: inability to function, rapid decompensation and med/psych decompensation Time Spent With Patient Time: Total time managing care of this patient today __20__ minutes.
[2023-10-03] MEDS: QUEtiapine Fumarate 25 MG TABLET PO (17:05)
[2023-10-03 20:00] VITALS: BP 115/62; PULSE 92; RESP 16; TEMP 36.6; O2SAT 95
[2023-10-03] MEDS: QUEtiapine Fumarate 50 MG TABLET PO (20:00)
[2023-10-03] MEDS: Donepezil HCl 10 MG TABLET PO (20:00)
[2023-10-03] MEDS: traZODone HCL 50 MG TABLET PO (21:27)
[2023-10-04 07:30] VITALS: BP 146/75; PULSE 72; RESP 16; TEMP 36.6; O2SAT 94
[2023-10-04] MEDS: Acetaminophen 325 MG TABLET 650 MG PO (08:10)
[2023-10-04] MEDS: Thiamine HCL 100 MG TABLET PO (08:14)
[2023-10-04] MEDS: Memantine HCl 10 MG TABLET PO ×2 (08:14→20:31)
[2023-10-04] MEDS: QUEtiapine Fumarate 25 MG TABLET 12.5 MG PO ×2 (08:14→14:06)
[2023-10-04] MEDS: Artificial Tears 15 ML DROPS 1 DROP EYE-BOTH (09:24)
[2023-10-04] MEDS: Brimonidine Tartrate 0.2% Oph 5 ML BOTTLE 1 DROP EYE-BOTH ×3 (09:29→20:33)
[2023-10-04] MEDS: SUMAtriptan succinate 50 MG TABLET PO (09:47)
--- NOTE | 2023-10-04 09:47 | HO.PSYCHPN ---
Subjective Subjective Date of Service: 10/04/23 Reason For Visit: Adjustment disorder,w/mixed disturbance of emotion Subjective Notes: Conditional Voluntary Interim History: The nursing staff reported the patient remains confused, with a brighter affect pleasant cooperative he slept 8 hours. On interview the patient remains pleasantly confused easily redirectable, waiting for placement. Mental Status Exam Mental Status Exam Patient Appearance: Well Grooomed and Appropriate Patient Orientation: Person and Situation Level of Consciousness: Awake and Appropriate Patient Behavior: Guarded and Passive Mood Description: Calm Affect Description: Constricted Patient Cognition Impaired: Yes Ability to Follow Directions: Good Speech Pattern: Clear Hallucinations: None Delusions: Not Present Thought Process: Distracted and Slowed Thinking Thought Content: positive for [place] and positive for Poverty of Content Judgement: Fair Diagnostics Vital Signs (24Hr): Vital Signs - 24 hr 10/03/23 10:12 10/03/23 20:00 10/04/23 07:30 Temperature 97.5 F 98 F 97.9 F Pulse Rate 87 92 72 Respiratory Rate 15 16 16 Blood Pressure 163/77 H 115/62 146/75 H Pulse Oximetry 96 95 94 Oxygen Delivery Method Room Air Room Air Room Air BMI result Body Mass Index 23.0 Labs 07/29/23 08:35 Imaging Radiology Impressions: ITS Impressions Shoulder X-Ray 07/30/23 09:55 IMPRESSION: 1. No metallic foreign body. 2. Calcification adjacent to the humeral head likely on the basis of calcific tendinosis. Orbit X-Ray 07/30/23 11:07 IMPRESSION: 1. No unexpected radiopaque foreign bodies. 2. Clear lungs. 3. Nonobstructive bowel gas pattern. 4. Moderate to large degree of colonic stool burden. Brain MRI 07/30/23 20:40 IMPRESSION: No acute intracranial abnormality. No findings to suggest Wernicke encephalopathy. Hand X-Ray 08/26/23 09:05 IMPRESSION: No fracture seen. Medications Medications Current Medications Acetaminophen (Acetaminophen 325 Mg Tablet) 650 mg PO Q6H PRN PRN Reason: Headache/Pain (1-10) Last Admin: 10/04/23 08:10 Dose: 650 mg Al Hydroxide/Mg Hydroxide (Magnesium Hydrox/Alum Hydrox 30 Ml Oral.Susp) 30 ml PO Q6H PRN PRN Reason: Heartburn/Nausea Last Admin: 10/01/23 23:30 Dose: 30 ml Artificial Tears (Artificial Tears 15 Ml Drops) 1 drop EYE-BOTH Q4H PRN PRN Reason: Dry Eyes Last Admin: 10/04/23 09:24 Dose: 1 drop Benzocaine (Throat Lozenge, Medicated Lozenge) 1 lozenge MUCOUS MEM Q4H PRN PRN Reason: Sore Throat Brimonidine Tartrate (Brimonidine Tartrate 0.2% Oph 5 Ml Bottle) 1 drop EYE-BOTH TID [facility] Last Admin: 10/04/23 09:29 Dose: 1 drop Donepezil HCl (Donepezil Hcl 10 Mg Tablet) 10 mg PO BEDTIME [facility] Last Admin: 10/03/23 20:00 Dose: 10 mg Guaifenesin (Guaifenesin 200 Mg/10 Ml 10 Ml Liquid) 10 ml PO Q6H PRN PRN Reason: Cough Last Admin: 09/05/23 23:21 Dose: 10 ml Lidocaine (Lidocaine 4 % Patch Adh..Patch) 2 patch TRANSDERMA DAILY PRN; Protocol PRN Reason: bilateral low back pain Last Admin: 09/26/23 04:27 Dose: 2 patch Magnesium Hydroxide (Milk Of Magnesia 30 Ml Oral.Susp) 30 ml PO DAILY PRN PRN Reason: Constipation Last Admin: 08/23/23 08:41 Dose: 30 ml Memantine (Memantine Hcl 10 Mg Tablet) 10 mg PO BID [facility] Last Admin: 10/04/23 08:14 Dose: 10 mg Quetiapine Fumarate (Quetiapine Fumarate 25 Mg Tablet) 25 mg PO BID PRN PRN Reason: anxiety/agitation Last Admin: 09/28/23 22:22 Dose: 25 mg Quetiapine Fumarate (Quetiapine Fumarate 25 Mg Tablet) 25 mg PO DAILY@1700 [facility] Last Admin: 10/03/23 17:05 Dose: 25 mg Quetiapine Fumarate (Quetiapine Fumarate 25 Mg Tablet) 12.5 mg PO BID@0830,1330 [facility] Last Admin: 10/04/23 08:14 Dose: 12.5 mg Quetiapine Fumarate (Quetiapine Fumarate 50 Mg Tablet) 50 mg PO BEDTIME [facility] Last Admin: 10/03/23 20:00 Dose: 50 mg Sumatriptan Succinate (Sumatriptan Succinate 50 Mg Tablet) 50 mg PO DAILY MRX1 PRN PRN Reason: Migraine Headache Last Admin: 10/02/23 09:56 Dose: 50 mg Thiamine HCl (Thiamine Hcl 100 Mg Tablet) 100 mg PO DAILY [facility] Last Admin: 10/04/23 08:14 Dose: 100 mg Trazodone HCl (Trazodone Hcl 50 Mg Tablet) 50 mg PO BEDTIME MRX1 PRN PRN Reason: Insomnia Last Admin: 10/03/23 21:27 Dose: 50 mg Allergies Allergies Allergy/AdvReac Type Severity Reaction Status Date / Time Sulfa (Sulfonamide Allergy Severe ANAPHYLAXIS Verified 08/25/23 23:13 Antibiotics) [SULFA (SULFONAMIDE ANTIBIOTICS)] mold Allergy Intermediate Shortness Verified 08/25/23 22:42 of Breath Assessment & Plan Assessment & Plan (1) Alcohol abuse with alcohol-induced mental disorder: Status: Acute Code(s): F10.188 - Alcohol abuse with other alcohol-induced disorder Plan The patient is a 78-year-old male with a past history of alcohol use disorder who was brought to the emergency room of another hospital for psychotic symptoms at the this moment currently denies. 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 09/19 patient adamant about being able to go home soon. Unaware of cognitive issues Plan 1. Gather collateral information. We will try to contact his family and start working on proper diagnosis and treatment plan. 2. Continue with medications as prescribed. 3. We will continue with medical workout. 4. MRI without contrast done that showed no destruction of pulmonary by this. 5. 15 minute checks since the patient is able to contract for safety.. 6. Start Namenda 5 mg p.o. b.i.d. to target cognitive impairment due to dementia. 7. Even though that his dementia is advanced, we will start Aricept 5 mg p.o. q.h.s. in combination with Namenda since it can help on diminishing the progression of his cognitive impairment. On March 05 we increased Aricept to 10 mg p.o. q.h.s. the plan is to increase over the weekend to Namenda 10 mg p.o. b.i.d. 8. Waiting for placement. 9. Seroquel 25 mg p.o. at 17:00 to avoid ing. 10. Increase Seroquel up 12.5 p.o. b.i.d. on [place] 24. 11. Start tramadol p.r.n. [id number] pain on August 20. On August 22 we are adding Seroquel 25 at bedtime. Total dose of Seroquel 75 mg a day 13. start Keflex 500 mg p.o. b.i.d. for cellulitis the cellulitis resolved. Reason for continued inpatient stay Substantial Risk for: inability to function, rapid decompensation and med/psych decompensation Time Spent With Patient Time: Total time managing care of this patient today __20__ minutes.
[2023-10-04] MEDS: QUEtiapine Fumarate 25 MG TABLET PO (16:33)
[2023-10-04 20:00] VITALS: BP 139/71; PULSE 84; RESP 18; TEMP 36.2; O2SAT 97
[2023-10-04] MEDS: QUEtiapine Fumarate 50 MG TABLET PO (20:31)
[2023-10-04] MEDS: traZODone HCL 50 MG TABLET PO (20:31)
[2023-10-04] MEDS: Donepezil HCl 10 MG TABLET PO (20:31)
[2023-10-05] MEDS: Brimonidine Tartrate 0.2% Oph 5 ML BOTTLE 1 DROP EYE-BOTH ×3 (08:43→20:15)
[2023-10-05] MEDS: Thiamine HCL 100 MG TABLET PO (08:44)
[2023-10-05] MEDS: Memantine HCl 10 MG TABLET PO ×2 (08:44→20:14)
[2023-10-05] MEDS: QUEtiapine Fumarate 25 MG TABLET 12.5 MG PO ×2 (08:44→14:30)
[2023-10-05 08:45] VITALS: BP 116/59; PULSE 78; RESP 15; TEMP 36.6; O2SAT 94
--- NOTE | 2023-10-05 09:11 | HO.PSYCHPN ---
Subjective Subjective Date of Service: 10/05/23 Reason For Visit: Adjustment disorder,w/mixed disturbance of emotion Subjective Notes: Conditional Voluntary Interim History: The nursing staff reported the patient had been pleasant, cooperative confused but easily redirectable. On interview the patient denies new symptoms, waiting for placement. Mental Status Exam Mental Status Exam Patient Appearance: Appropriate Patient Orientation: Person and Situation Level of Consciousness: Awake and Appropriate Patient Behavior: Guarded and Passive Mood Description: Withdrawn Affect Description: Constricted Patient Cognition Impaired: Yes Ability to Follow Directions: Good Speech Pattern: Clear Hallucinations: None Delusions: Not Present Thought Process: Distracted and Evasive Thought Content: positive for [place] and positive for Poverty of Content Judgement: Poor Diagnostics Vital Signs (24Hr): Vital Signs - 24 hr 10/04/23 20:00 10/05/23 08:45 Temperature 97.1 F 97.9 F Pulse Rate 84 78 Respiratory Rate 18 15 Blood Pressure 139/71 116/59 L Pulse Oximetry 97 94 Oxygen Delivery Method Room Air Room Air BMI result Body Mass Index 23.0 Labs 07/29/23 08:35 Imaging Radiology Impressions: ITS Impressions Shoulder X-Ray 07/30/23 09:55 IMPRESSION: 1. No metallic foreign body. 2. Calcification adjacent to the humeral head likely on the basis of calcific tendinosis. Orbit X-Ray 07/30/23 11:07 IMPRESSION: 1. No unexpected radiopaque foreign bodies. 2. Clear lungs. 3. Nonobstructive bowel gas pattern. 4. Moderate to large degree of colonic stool burden. Brain MRI 07/30/23 20:40 IMPRESSION: No acute intracranial abnormality. No findings to suggest Wernicke encephalopathy. Hand X-Ray 08/26/23 09:05 IMPRESSION: No fracture seen. Medications Medications Current Medications Acetaminophen (Acetaminophen 325 Mg Tablet) 650 mg PO Q6H PRN PRN Reason: Headache/Pain (1-10) Last Admin: 10/04/23 08:10 Dose: 650 mg Al Hydroxide/Mg Hydroxide (Magnesium Hydrox/Alum Hydrox 30 Ml Oral.Susp) 30 ml PO Q6H PRN PRN Reason: Heartburn/Nausea Last Admin: 10/01/23 23:30 Dose: 30 ml Artificial Tears (Artificial Tears 15 Ml Drops) 1 drop EYE-BOTH Q4H PRN PRN Reason: Dry Eyes Last Admin: 10/04/23 09:24 Dose: 1 drop Benzocaine (Throat Lozenge, Medicated Lozenge) 1 lozenge MUCOUS MEM Q4H PRN PRN Reason: Sore Throat Brimonidine Tartrate (Brimonidine Tartrate 0.2% Oph 5 Ml Bottle) 1 drop EYE-BOTH TID [facility] Last Admin: 10/05/23 08:43 Dose: 1 drop Donepezil HCl (Donepezil Hcl 10 Mg Tablet) 10 mg PO BEDTIME [facility] Last Admin: 10/04/23 20:31 Dose: 10 mg Guaifenesin (Guaifenesin 200 Mg/10 Ml 10 Ml Liquid) 10 ml PO Q6H PRN PRN Reason: Cough Last Admin: 09/05/23 23:21 Dose: 10 ml Lidocaine (Lidocaine 4 % Patch Adh..Patch) 2 patch TRANSDERMA DAILY PRN; Protocol PRN Reason: bilateral low back pain Last Admin: 09/26/23 04:27 Dose: 2 patch Magnesium Hydroxide (Milk Of Magnesia 30 Ml Oral.Susp) 30 ml PO DAILY PRN PRN Reason: Constipation Last Admin: 08/23/23 08:41 Dose: 30 ml Memantine (Memantine Hcl 10 Mg Tablet) 10 mg PO BID [facility] Last Admin: 10/05/23 08:44 Dose: 10 mg Quetiapine Fumarate (Quetiapine Fumarate 25 Mg Tablet) 25 mg PO BID PRN PRN Reason: anxiety/agitation Last Admin: 09/28/23 22:22 Dose: 25 mg Quetiapine Fumarate (Quetiapine Fumarate 25 Mg Tablet) 25 mg PO DAILY@1700 [facility] Last Admin: 10/04/23 16:33 Dose: 25 mg Quetiapine Fumarate (Quetiapine Fumarate 25 Mg Tablet) 12.5 mg PO BID@0830,1330 [facility] Last Admin: 10/05/23 08:44 Dose: 12.5 mg Quetiapine Fumarate (Quetiapine Fumarate 50 Mg Tablet) 50 mg PO BEDTIME [facility] Last Admin: 10/04/23 20:31 Dose: 50 mg Sumatriptan Succinate (Sumatriptan Succinate 50 Mg Tablet) 50 mg PO DAILY MRX1 PRN PRN Reason: Migraine Headache Last Admin: 10/04/23 09:47 Dose: 50 mg Thiamine HCl (Thiamine Hcl 100 Mg Tablet) 100 mg PO DAILY [facility] Last Admin: 10/05/23 08:44 Dose: 100 mg Trazodone HCl (Trazodone Hcl 50 Mg Tablet) 50 mg PO BEDTIME MRX1 PRN PRN Reason: Insomnia Last Admin: 10/04/23 20:31 Dose: 50 mg Allergies Allergies Allergy/AdvReac Type Severity Reaction Status Date / Time Sulfa (Sulfonamide Allergy Severe ANAPHYLAXIS Verified 08/25/23 23:13 Antibiotics) [SULFA (SULFONAMIDE ANTIBIOTICS)] mold Allergy Intermediate Shortness Verified 08/25/23 22:42 of Breath Assessment & Plan Assessment & Plan (1) Alcohol abuse with alcohol-induced mental disorder: Status: Acute Code(s): F10.188 - Alcohol abuse with other alcohol-induced disorder Plan The patient is a 78-year-old male with a past history of alcohol use disorder who was brought to the emergency room of another hospital for psychotic symptoms at the this moment currently denies. 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 09/19 patient adamant about being able to go home soon. Unaware of cognitive issues Plan 1. Gather collateral information. We will try to contact his family and start working on proper diagnosis and treatment plan. 2. Continue with medications as prescribed. 3. We will continue with medical workout. 4. MRI without contrast done that showed no destruction of pulmonary by this. 5. 15 minute checks since the patient is able to contract for safety.. 6. Start Namenda 5 mg p.o. b.i.d. to target cognitive impairment due to dementia. 7. Even though that his dementia is advanced, we will start Aricept 5 mg p.o. q.h.s. in combination with Namenda since it can help on diminishing the progression of his cognitive impairment. On March 05 we increased Aricept to 10 mg p.o. q.h.s. the plan is to increase over the weekend to Namenda 10 mg p.o. b.i.d. 8. Waiting for placement. 9. Seroquel 25 mg p.o. at 17:00 to avoid ing. 10. Increase Seroquel up 12.5 p.o. b.i.d. on August 17. 11. Start tramadol p.r.n. [id number] pain on August 20. 12. On August 22 we are adding Seroquel 25 at bedtime. Total dose of Seroquel 75 mg a day 13. start Keflex 500 mg p.o. b.i.d. for cellulitis the cellulitis resolved. Reason for continued inpatient stay Substantial Risk for: inability to function, rapid decompensation and med/psych decompensation Time Spent With Patient Time: Total time managing care of this patient today __20__ minutes.
[2023-10-05] MEDS: QUEtiapine Fumarate 25 MG TABLET PO (16:37)
[2023-10-05] MEDS: QUEtiapine Fumarate 50 MG TABLET PO (20:14)
[2023-10-05] MEDS: Donepezil HCl 10 MG TABLET PO (20:14)
[2023-10-05 21:05] VITALS: BP 153/86; PULSE 80; RESP 16; TEMP 36.5; O2SAT 96
[2023-10-06 08:40] VITALS: BP 143/75; PULSE 81; RESP 18; TEMP 36.2; O2SAT 94
[2023-10-06] MEDS: Brimonidine Tartrate 0.2% Oph 5 ML BOTTLE 1 DROP EYE-BOTH ×3 (09:05→20:38)
[2023-10-06] MEDS: QUEtiapine Fumarate 25 MG TABLET 12.5 MG PO ×2 (09:05→14:02)
[2023-10-06] MEDS: Memantine HCl 10 MG TABLET PO ×2 (09:05→20:39)
[2023-10-06] MEDS: Thiamine HCL 100 MG TABLET PO (09:05)
--- NOTE | 2023-10-06 14:44 | HO.PSYCHPN ---
Subjective Subjective Date of Service: 10/06/23 Reason For Visit: Adjustment disorder,w/mixed disturbance of emotion Subjective Notes: Conditional Voluntary Interim History: The nursing staff reported the patient had been pleasant cooperative but confused as usual. No changes in status. Waiting for placement. Mental Status Exam Mental Status Exam Patient Appearance: Appropriate Patient Orientation: Person and Situation Level of Consciousness: Awake and Appropriate Patient Behavior: Guarded and Passive Mood Description: Withdrawn Affect Description: Constricted Patient Cognition Impaired: Yes Ability to Follow Directions: Good Speech Pattern: Clear Hallucinations: None Delusions: Not Present Thought Process: Distracted and Slowed Thinking Thought Content: positive for [place] and positive for Poverty of Content Judgement: Fair Diagnostics Vital Signs (24Hr): Vital Signs - 24 hr 10/05/23 21:05 10/06/23 08:40 Temperature 97.7 F 97.1 F Pulse Rate 80 81 Respiratory Rate 16 18 Blood Pressure 153/86 H 143/75 H Pulse Oximetry 96 94 Oxygen Delivery Method Room Air Room Air BMI result Body Mass Index 23.0 Labs 07/29/23 08:35 Imaging Radiology Impressions: ITS Impressions Shoulder X-Ray 07/30/23 09:55 IMPRESSION: 1. No metallic foreign body. 2. Calcification adjacent to the humeral head likely on the basis of calcific tendinosis. Orbit X-Ray 07/30/23 11:07 IMPRESSION: 1. No unexpected radiopaque foreign bodies. 2. Clear lungs. 3. Nonobstructive bowel gas pattern. 4. Moderate to large degree of colonic stool burden. Brain MRI 07/30/23 20:40 IMPRESSION: No acute intracranial abnormality. No findings to suggest Wernicke encephalopathy. Hand X-Ray 08/26/23 09:05 IMPRESSION: No fracture seen. Medications Medications Current Medications Acetaminophen (Acetaminophen 325 Mg Tablet) 650 mg PO Q6H PRN PRN Reason: Headache/Pain (1-10) Last Admin: 10/04/23 08:10 Dose: 650 mg Al Hydroxide/Mg Hydroxide (Magnesium Hydrox/Alum Hydrox 30 Ml Oral.Susp) 30 ml PO Q6H PRN PRN Reason: Heartburn/Nausea Last Admin: 10/01/23 23:30 Dose: 30 ml Artificial Tears (Artificial Tears 15 Ml Drops) 1 drop EYE-BOTH Q4H PRN PRN Reason: Dry Eyes Last Admin: 10/04/23 09:24 Dose: 1 drop Benzocaine (Throat Lozenge, Medicated Lozenge) 1 lozenge MUCOUS MEM Q4H PRN PRN Reason: Sore Throat Brimonidine Tartrate (Brimonidine Tartrate 0.2% Oph 5 Ml Bottle) 1 drop EYE-BOTH TID [facility] Last Admin: 10/06/23 09:05 Dose: 1 drop Donepezil HCl (Donepezil Hcl 10 Mg Tablet) 10 mg PO BEDTIME [facility] Last Admin: 10/05/23 20:14 Dose: 10 mg Guaifenesin (Guaifenesin 200 Mg/10 Ml 10 Ml Liquid) 10 ml PO Q6H PRN PRN Reason: Cough Last Admin: 09/05/23 23:21 Dose: 10 ml Lidocaine (Lidocaine 4 % Patch Adh..Patch) 2 patch TRANSDERMA DAILY PRN; Protocol PRN Reason: bilateral low back pain Last Admin: 09/26/23 04:27 Dose: 2 patch Magnesium Hydroxide (Milk Of Magnesia 30 Ml Oral.Susp) 30 ml PO DAILY PRN PRN Reason: Constipation Last Admin: 08/23/23 08:41 Dose: 30 ml Memantine (Memantine Hcl 10 Mg Tablet) 10 mg PO BID [facility] Last Admin: 10/06/23 09:05 Dose: 10 mg Quetiapine Fumarate (Quetiapine Fumarate 25 Mg Tablet) 25 mg PO BID PRN PRN Reason: anxiety/agitation Last Admin: 09/28/23 22:22 Dose: 25 mg Quetiapine Fumarate (Quetiapine Fumarate 25 Mg Tablet) 25 mg PO DAILY@1700 [facility] Last Admin: 10/05/23 16:37 Dose: 25 mg Quetiapine Fumarate (Quetiapine Fumarate 25 Mg Tablet) 12.5 mg PO BID@0830,1330 [facility] Last Admin: 10/06/23 14:02 Dose: 12.5 mg Quetiapine Fumarate (Quetiapine Fumarate 50 Mg Tablet) 50 mg PO BEDTIME [facility] Last Admin: 10/05/23 20:14 Dose: 50 mg Sumatriptan Succinate (Sumatriptan Succinate 50 Mg Tablet) 50 mg PO DAILY MRX1 PRN PRN Reason: Migraine Headache Last Admin: 10/04/23 09:47 Dose: 50 mg Thiamine HCl (Thiamine Hcl 100 Mg Tablet) 100 mg PO DAILY [facility] Last Admin: 10/06/23 09:05 Dose: 100 mg Trazodone HCl (Trazodone Hcl 50 Mg Tablet) 50 mg PO BEDTIME MRX1 PRN PRN Reason: Insomnia Last Admin: 10/04/23 20:31 Dose: 50 mg Allergies Allergies Allergy/AdvReac Type Severity Reaction Status Date / Time Sulfa (Sulfonamide Allergy Severe ANAPHYLAXIS Verified 08/25/23 23:13 Antibiotics) [SULFA (SULFONAMIDE ANTIBIOTICS)] mold Allergy Intermediate Shortness Verified 08/25/23 22:42 of Breath Assessment & Plan Assessment & Plan (1) Alcohol abuse with alcohol-induced mental disorder: Status: Acute Code(s): F10.188 - Alcohol abuse with other alcohol-induced disorder Plan The patient is a 78-year-old male with a past history of alcohol use disorder who was brought to the emergency room of another hospital for psychotic symptoms at the this moment currently denies. 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 09/19 patient adamant about being able to go home soon. Unaware of cognitive issues Plan 1. Gather collateral information. We will try to contact his family and start working on proper diagnosis and treatment plan. 2. Continue with medications as prescribed. 3. We will continue with medical workout. 4. MRI without contrast done that showed no destruction of pulmonary by this. 5. 15 minute checks since the patient is able to contract for safety.. 6. Start Namenda 5 mg p.o. b.i.d. to target cognitive impairment due to dementia. 7. Even though that his dementia is advanced, we will start Aricept 5 mg p.o. q.h.s. in combination with Namenda since it can help on diminishing the progression of his cognitive impairment. On March 05 we increased Aricept to 10 mg p.o. q.h.s. the plan is to increase over the weekend to Namenda 10 mg p.o. b.i.d. 8. Waiting for placement. 9. Seroquel 25 mg p.o. at 17:00 to avoid . 10. Increase Seroquel up 12.5 p.o. b.i.d. on August 17. 11. Start tramadol p.r.n. [id number] pain on August 20. 12. On August 22 we are adding Seroquel 25 at bedtime. Total dose of Seroquel 75 mg a day 13. start Keflex 500 mg p.o. b.i.d. for cellulitis the cellulitis resolved. Reason for continued inpatient stay Substantial Risk for: inability to function, rapid decompensation and med/psych decompensation Time Spent With Patient Time: Total time managing care of this patient today __20__ minutes.
[2023-10-06] MEDS: QUEtiapine Fumarate 25 MG TABLET PO (17:22)
[2023-10-06 20:00] VITALS: BP 133/63; PULSE 75; RESP 18; TEMP 36.5; O2SAT 96
[2023-10-06] MEDS: traZODone HCL 50 MG TABLET PO (20:39)
[2023-10-06] MEDS: Donepezil HCl 10 MG TABLET PO (20:39)
[2023-10-06] MEDS: QUEtiapine Fumarate 50 MG TABLET PO (20:39)
[2023-10-07 08:00] VITALS: BP 134/67; PULSE 70; RESP 16; TEMP 36.4; O2SAT 96
[2023-10-07] MEDS: QUEtiapine Fumarate 25 MG TABLET 12.5 MG PO ×2 (08:18→13:17)
[2023-10-07] MEDS: Brimonidine Tartrate 0.2% Oph 5 ML BOTTLE 1 DROP EYE-BOTH ×3 (08:21→20:48)
[2023-10-07] MEDS: Memantine HCl 10 MG TABLET PO ×2 (08:51→20:48)
[2023-10-07] MEDS: Thiamine HCL 100 MG TABLET PO (08:55)
[2023-10-07] MEDS: QUEtiapine Fumarate 25 MG TABLET PO (16:29)
--- NOTE | 2023-10-07 16:33 | P.PNPSI_ITS ---
Subjective Subjective Date of Service: 10/07/23 Reason For Visit: Adjustment disorder,w/mixed disturbance of emotion Subjective Notes: Conditional Voluntary Interim History: The nursing staff reported no changes in his mental status compliant with treatment. On interview the patient was asking about discharge planning. Mental Status Exam Mental Status Exam Patient Appearance: Appropriate Patient Orientation: Person and Situation Level of Consciousness: Awake and Appropriate Patient Behavior: Guarded and Passive Mood Description: Withdrawn Affect Description: Constricted Patient Cognition Impaired: Yes Ability to Follow Directions: Good Speech Pattern: Clear Hallucinations: None Delusions: Not Present Thought Process: Distracted and Slowed Thinking Thought Content: positive for [place] and positive for Poverty of Content Judgement: Fair Diagnostics Vital Signs (24Hr): Vital Signs - 24 hr 10/06/23 20:00 10/07/23 08:00 Temperature 97.7 F 97.6 F Pulse Rate 75 70 Respiratory Rate 18 16 Blood Pressure 133/63 134/67 Pulse Oximetry 96 96 Oxygen Delivery Method Room Air Room Air BMI result Body Mass Index 23.0 Labs 07/29/23 08:35 Imaging Radiology Impressions: ITS Impressions Shoulder X-Ray 07/30/23 09:55 IMPRESSION: 1. No metallic foreign body. 2. Calcification adjacent to the humeral head likely on the basis of calcific tendinosis. Orbit X-Ray 07/30/23 11:07 IMPRESSION: 1. No unexpected radiopaque foreign bodies. 2. Clear lungs. 3. Nonobstructive bowel gas pattern. 4. Moderate to large degree of colonic stool burden. Brain MRI 07/30/23 20:40 IMPRESSION: No acute intracranial abnormality. No findings to suggest Wernicke encephalopathy. Hand X-Ray 08/26/23 09:05 IMPRESSION: No fracture seen. Medications Medications Current Medications Acetaminophen (Acetaminophen 325 Mg Tablet) 650 mg PO Q6H PRN PRN Reason: Headache/Pain (1-10) Last Admin: 10/04/23 08:10 Dose: 650 mg Al Hydroxide/Mg Hydroxide (Magnesium Hydrox/Alum Hydrox 30 Ml Oral.Susp) 30 ml PO Q6H PRN PRN Reason: Heartburn/Nausea Last Admin: 10/01/23 23:30 Dose: 30 ml Artificial Tears (Artificial Tears 15 Ml Drops) 1 drop EYE-BOTH Q4H PRN PRN Reason: Dry Eyes Last Admin: 10/04/23 09:24 Dose: 1 drop Benzocaine (Throat Lozenge, Medicated Lozenge) 1 lozenge MUCOUS MEM Q4H PRN PRN Reason: Sore Throat Brimonidine Tartrate (Brimonidine Tartrate 0.2% Oph 5 Ml Bottle) 1 drop EYE- BOTH TID [facility] Last Admin: 10/07/23 14:24 Dose: 1 drop Donepezil HCl (Donepezil Hcl 10 Mg Tablet) 10 mg PO BEDTIME [facility] Last Admin: 10/06/23 20:39 Dose: 10 mg Guaifenesin (Guaifenesin 200 Mg/10 Ml 10 Ml Liquid) 10 ml PO Q6H PRN PRN Reason: Cough Last Admin: 09/05/23 23:21 Dose: 10 ml Lidocaine (Lidocaine 4 % Patch Adh..Patch) 2 patch TRANSDERMA DAILY PRN; Protocol PRN Reason: bilateral low back pain Last Admin: 09/26/23 04:27 Dose: 2 patch Magnesium Hydroxide (Milk Of Magnesia 30 Ml Oral.Susp) 30 ml PO DAILY PRN PRN Reason: Constipation Last Admin: 08/23/23 08:41 Dose: 30 ml Memantine (Memantine Hcl 10 Mg Tablet) 10 mg PO BID [facility] Last Admin: 10/07/23 08:51 Dose: 10 mg Quetiapine Fumarate (Quetiapine Fumarate 25 Mg Tablet) 25 mg PO BID PRN PRN Reason: anxiety/agitation Last Admin: 09/28/23 22:22 Dose: 25 mg Quetiapine Fumarate (Quetiapine Fumarate 25 Mg Tablet) 25 mg PO DAILY@1700 [facility] Last Admin: 10/07/23 16:29 Dose: 25 mg Quetiapine Fumarate (Quetiapine Fumarate 25 Mg Tablet) 12.5 mg PO BID@0830,1330 [facility] Last Admin: 10/07/23 13:17 Dose: 12.5 mg Quetiapine Fumarate (Quetiapine Fumarate 50 Mg Tablet) 50 mg PO BEDTIME [facility] Last Admin: 10/06/23 20:39 Dose: 50 mg Sumatriptan Succinate (Sumatriptan Succinate 50 Mg Tablet) 50 mg PO DAILY MRX1 PRN PRN Reason: Migraine Headache Last Admin: 10/04/23 09:47 Dose: 50 mg Thiamine HCl (Thiamine Hcl 100 Mg Tablet) 100 mg PO DAILY [facility] Last Admin: 10/07/23 08:55 Dose: 100 mg Trazodone HCl (Trazodone Hcl 50 Mg Tablet) 50 mg PO BEDTIME MRX1 PRN PRN Reason: Insomnia Last Admin: 10/06/23 20:39 Dose: 50 mg Allergies Allergies Allergy/AdvReac Type Severity Reaction Status Date / Time Sulfa (Sulfonamide Allergy Severe ANAPHYLAXIS Verified 08/25/23 23:13 Antibiotics) [SULFA (SULFONAMIDE ANTIBIOTICS)] mold Allergy Intermediate Shortness Verified 08/25/23 22:42 of Breath Assessment & Plan Assessment & Plan (1) Alcohol abuse with alcohol-induced mental disorder: Status: Acute Code(s): F10.188 - Alcohol abuse with other alcohol-induced disorder Plan The patient is a 78-year-old male with a past history of alcohol use disorder who was brought to the emergency room of another hospital for psychotic symptoms at the this moment currently denies. 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 09/19 patient adamant about being able to go home soon. Unaware of cognitive issues Plan 1. Gather collateral information. We will try to contact his family and start working on proper diagnosis and treatment plan. 2. Continue with medications as prescribed. 3. We will continue with medical workout. 4. MRI without contrast done that showed no destruction of pulmonary by this. 5. 15 minute checks since the patient is able to contract for safety.. 6. Start Namenda 5 mg p.o. b.i.d. to target cognitive impairment due to dementia. 7. Even though that his dementia is advanced, we will start Aricept 5 mg p.o. q.h.s. in combination with Namenda since it can help on diminishing the progression of his cognitive impairment. On March 05 we increased Aricept to 10 mg p.o. q.h.s. the plan is to increase over the weekend to Namenda 10 mg p.o. b.i.d. 8. Waiting for placement. 9. Seroquel 25 mg p.o. at 17:00 to avoid . 10. Increase Seroquel up 12.5 p.o. b.i.d. on August 17. 11. Start tramadol p.r.n. [id number] pain on August 20. 12. On August 22 we are adding Seroquel 25 at bedtime. Total dose of Seroquel 75 mg a day 13. start Keflex 500 mg p.o. b.i.d. for cellulitis the cellulitis resolved. Reason for continued inpatient stay Substantial Risk for: inability to function, rapid decompensation and med/psych decompensation Time Spent With Patient Time: Total time managing care of this patient today __20__ minutes.
[2023-10-07 20:00] VITALS: BP 148/71; PULSE 67; RESP 18; TEMP 36.6; O2SAT 96
[2023-10-07] MEDS: Donepezil HCl 10 MG TABLET PO (20:48)
[2023-10-07] MEDS: QUEtiapine Fumarate 50 MG TABLET PO (20:48)
[2023-10-07] MEDS: traZODone HCL 50 MG TABLET PO (20:48)
[2023-10-08] MEDS: traZODone HCL 50 MG TABLET PO (00:05)
[2023-10-08] MEDS: QUEtiapine Fumarate 25 MG TABLET PO ×2 (00:06→17:00)
[2023-10-08 08:00] VITALS: BP 134/70; PULSE 70; RESP 18; TEMP 36.4; O2SAT 96
[2023-10-08] MEDS: QUEtiapine Fumarate 25 MG TABLET 12.5 MG PO ×2 (08:24→13:11)
[2023-10-08] MEDS: Brimonidine Tartrate 0.2% Oph 5 ML BOTTLE 1 DROP EYE-BOTH ×3 (08:24→19:59)
[2023-10-08] MEDS: Memantine HCl 10 MG TABLET PO ×2 (08:24→19:59)
[2023-10-08] MEDS: Thiamine HCL 100 MG TABLET PO (08:25)
--- NOTE | 2023-10-08 15:11 | P.PNPSI_ITS ---
Subjective Subjective Date of Service: 10/08/23 Reason For Visit: Adjustment disorder,w/mixed disturbance of emotion Subjective Notes: Conditional Voluntary Interim History: The nursing staff reported no changes in his mental status, he slept well last night On interview the patient again was confused unable to remember the conversation that we had before he was asking about discharge. Waiting for placement. Mental Status Exam Mental Status Exam Patient Appearance: Appropriate Patient Orientation: Person Level of Consciousness: Awake and Appropriate Patient Behavior: Guarded and Passive Mood Description: Withdrawn Affect Description: Constricted Patient Cognition Impaired: Yes Ability to Follow Directions: Good Speech Pattern: Clear Hallucinations: None Delusions: Not Present Thought Process: Distracted and Slowed Thinking Thought Content: positive for [place] and positive for Poverty of Content Judgement: Fair Diagnostics Vital Signs (24Hr): Vital Signs - 24 hr 10/07/23 20:00 10/08/23 08:00 Temperature 97.9 F 97.6 F Pulse Rate 67 70 Respiratory Rate 18 18 Blood Pressure 148/71 H 134/70 Pulse Oximetry 96 96 Oxygen Delivery Method Room Air Room Air BMI result Body Mass Index 23.0 Labs 07/29/23 08:35 Imaging Radiology Impressions: ITS Impressions Shoulder X-Ray 07/30/23 09:55 IMPRESSION: 1. No metallic foreign body. 2. Calcification adjacent to the humeral head likely on the basis of calcific tendinosis. Orbit X-Ray 07/30/23 11:07 IMPRESSION: 1. No unexpected radiopaque foreign bodies. 2. Clear lungs. 3. Nonobstructive bowel gas pattern. 4. Moderate to large degree of colonic stool burden. Brain MRI 07/30/23 20:40 IMPRESSION: No acute intracranial abnormality. No findings to suggest Wernicke encephalopathy. Hand X-Ray 08/26/23 09:05 IMPRESSION: No fracture seen. Medications Medications Current Medications Acetaminophen (Acetaminophen 325 Mg Tablet) 650 mg PO Q6H PRN PRN Reason: Headache/Pain (1-10) Last Admin: 10/04/23 08:10 Dose: 650 mg Al Hydroxide/Mg Hydroxide (Magnesium Hydrox/Alum Hydrox 30 Ml Oral.Susp) 30 ml PO Q6H PRN PRN Reason: Heartburn/Nausea Last Admin: 10/01/23 23:30 Dose: 30 ml Artificial Tears (Artificial Tears 15 Ml Drops) 1 drop EYE-BOTH Q4H PRN PRN Reason: Dry Eyes Last Admin: 10/04/23 09:24 Dose: 1 drop Benzocaine (Throat Lozenge, Medicated Lozenge) 1 lozenge MUCOUS MEM Q4H PRN PRN Reason: Sore Throat Brimonidine Tartrate (Brimonidine Tartrate 0.2% Oph 5 Ml Bottle) 1 drop EYE- BOTH TID [facility] Last Admin: 10/08/23 15:02 Dose: 1 drop Donepezil HCl (Donepezil Hcl 10 Mg Tablet) 10 mg PO BEDTIME [facility] Last Admin: 10/07/23 20:48 Dose: 10 mg Guaifenesin (Guaifenesin 200 Mg/10 Ml 10 Ml Liquid) 10 ml PO Q6H PRN PRN Reason: Cough Last Admin: 09/05/23 23:21 Dose: 10 ml Lidocaine (Lidocaine 4 % Patch Adh..Patch) 2 patch TRANSDERMA DAILY PRN; Protocol PRN Reason: bilateral low back pain Last Admin: 09/26/23 04:27 Dose: 2 patch Magnesium Hydroxide (Milk Of Magnesia 30 Ml Oral.Susp) 30 ml PO DAILY PRN PRN Reason: Constipation Last Admin: 08/23/23 08:41 Dose: 30 ml Memantine (Memantine Hcl 10 Mg Tablet) 10 mg PO BID [facility] Last Admin: 10/08/23 08:24 Dose: 10 mg Quetiapine Fumarate (Quetiapine Fumarate 25 Mg Tablet) 25 mg PO BID PRN PRN Reason: anxiety/agitation Last Admin: 10/08/23 00:06 Dose: 25 mg Quetiapine Fumarate (Quetiapine Fumarate 25 Mg Tablet) 25 mg PO DAILY@1700 [facility] Last Admin: 10/07/23 16:29 Dose: 25 mg Quetiapine Fumarate (Quetiapine Fumarate 25 Mg Tablet) 12.5 mg PO BID@0830,1330 [facility] Last Admin: 10/08/23 13:11 Dose: 12.5 mg Quetiapine Fumarate (Quetiapine Fumarate 50 Mg Tablet) 50 mg PO BEDTIME [facility] Last Admin: 10/07/23 20:48 Dose: 50 mg Sumatriptan Succinate (Sumatriptan Succinate 50 Mg Tablet) 50 mg PO DAILY MRX1 PRN PRN Reason: Migraine Headache Last Admin: 10/04/23 09:47 Dose: 50 mg Thiamine HCl (Thiamine Hcl 100 Mg Tablet) 100 mg PO DAILY [facility] Last Admin: 10/08/23 08:25 Dose: 100 mg Trazodone HCl (Trazodone Hcl 50 Mg Tablet) 50 mg PO BEDTIME MRX1 PRN PRN Reason: Insomnia Last Admin: 10/08/23 00:05 Dose: 50 mg Allergies Allergies Allergy/AdvReac Type Severity Reaction Status Date / Time Sulfa (Sulfonamide Allergy Severe ANAPHYLAXIS Verified 08/25/23 23:13 Antibiotics) [SULFA (SULFONAMIDE ANTIBIOTICS)] mold Allergy Intermediate Shortness Verified 08/25/23 22:42 of Breath Assessment & Plan Assessment & Plan (1) Alcohol abuse with alcohol-induced mental disorder: Status: Acute Code(s): F10.188 - Alcohol abuse with other alcohol-induced disorder Plan The patient is a 78-year-old male with a past history of alcohol use disorder who was brought to the emergency room of another hospital for psychotic symptoms at the this moment currently denies. 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 09/19 patient adamant about being able to go home soon. Unaware of cognitive issues Plan 1. Gather collateral information. We will try to contact his family and start working on proper diagnosis and treatment plan. 2. Continue with medications as prescribed. 3. We will continue with medical workout. 4. MRI without contrast done that showed no destruction of pulmonary by this. 5. 15 minute checks since the patient is able to contract for safety.. 6. Start Namenda 5 mg p.o. b.i.d. to target cognitive impairment due to dementia. 7. Even though that his dementia is advanced, we will start Aricept 5 mg p.o. q.h.s. in combination with Namenda since it can help on diminishing the progression of his cognitive impairment. On March 05 we increased Aricept to 10 mg p.o. q.h.s. the plan is to increase over the weekend to Namenda 10 mg p.o. b.i.d. 8. Waiting for placement. 9. Seroquel 25 mg p.o. at 17:00 to avoid ing. 10. Increase Seroquel up 12.5 p.o. b.i.d. on August 17. 11. Start tramadol p.r.n. [id number] pain on August 20. 12. On August 22 we are adding Seroquel 25 at bedtime. Total dose of Seroquel 75 mg a day 13. start Keflex 500 mg p.o. b.i.d. for cellulitis the cellulitis resolved. Reason for continued inpatient stay Substantial Risk for: inability to function, rapid decompensation and med/psych decompensation Time Spent With Patient Time: Total time managing care of this patient today __20__ minutes.
[2023-10-08] MEDS: Acetaminophen 325 MG TABLET 650 MG PO (15:53)
[2023-10-08 19:35] VITALS: BP 133/67; PULSE 83; RESP 16; TEMP 36.6; O2SAT 96
[2023-10-08] MEDS: QUEtiapine Fumarate 50 MG TABLET PO (19:59)
[2023-10-08] MEDS: Donepezil HCl 10 MG TABLET PO (19:59)
[2023-10-09 07:00] VITALS: BMI 23.6
[2023-10-09 07:59] VITALS: BP 113/55; PULSE 66; RESP 18; TEMP 36.8; O2SAT 96
[2023-10-09] MEDS: Memantine HCl 10 MG TABLET PO ×2 (08:10→20:20)
[2023-10-09] MEDS: QUEtiapine Fumarate 25 MG TABLET 12.5 MG PO (08:10)
[2023-10-09] MEDS: Thiamine HCL 100 MG TABLET PO (08:10)
[2023-10-09] MEDS: Brimonidine Tartrate 0.2% Oph 5 ML BOTTLE 1 DROP EYE-BOTH ×3 (08:12→20:21)
--- NOTE | 2023-10-09 12:42 | HO.PSYCHPN ---
Subjective Subjective Date of Service: 10/09/23 Reason For Visit: Adjustment disorder,w/mixed disturbance of emotion Subjective Notes: Conditional Voluntary Interim History: The nursing staff reported no changes in his mental status pleasant cooperative confused. On interview the patient denies new symptoms, waiting for placement. The social services manager reported that his ex-girlfriend visited him yesterday. Mental Status Exam Mental Status Exam Patient Appearance: Appropriate Patient Orientation: Person and Situation Level of Consciousness: Awake Patient Behavior: Guarded and Passive Mood Description: Withdrawn Affect Description: Constricted Patient Cognition Impaired: Yes Ability to Follow Directions: Good Speech Pattern: Clear Hallucinations: None Delusions: Ideas of Reference Thought Process: Distracted and Slowed Thinking Thought Content: positive for [place] and positive for Poverty of Content Judgement: Fair Diagnostics Vital Signs (24Hr): Vital Signs - 24 hr 10/08/23 19:35 10/09/23 07:59 Temperature 97.8 F 98.2 F Pulse Rate 83 66 Respiratory Rate 16 18 Blood Pressure 133/67 113/55 L Pulse Oximetry 96 96 Oxygen Delivery Method Room Air Room Air BMI result Body Mass Index 23.0 Labs 07/29/23 08:35 Imaging Radiology Impressions: ITS Impressions Shoulder X-Ray 07/30/23 09:55 IMPRESSION: 1. No metallic foreign body. 2. Calcification adjacent to the humeral head likely on the basis of calcific tendinosis. Orbit X-Ray 07/30/23 11:07 IMPRESSION: 1. No unexpected radiopaque foreign bodies. 2. Clear lungs. 3. Nonobstructive bowel gas pattern. 4. Moderate to large degree of colonic stool burden. Brain MRI 07/30/23 20:40 IMPRESSION: No acute intracranial abnormality. No findings to suggest Wernicke encephalopathy. Hand X-Ray 08/26/23 09:05 IMPRESSION: No fracture seen. Medications Medications Current Medications Acetaminophen (Acetaminophen 325 Mg Tablet) 650 mg PO Q6H PRN PRN Reason: Headache/Pain (1-10) Last Admin: 10/08/23 15:53 Dose: 650 mg Al Hydroxide/Mg Hydroxide (Magnesium Hydrox/Alum Hydrox 30 Ml Oral.Susp) 30 ml PO Q6H PRN PRN Reason: Heartburn/Nausea Last Admin: 10/01/23 23:30 Dose: 30 ml Artificial Tears (Artificial Tears 15 Ml Drops) 1 drop EYE-BOTH Q4H PRN PRN Reason: Dry Eyes Last Admin: 10/04/23 09:24 Dose: 1 drop Benzocaine (Throat Lozenge, Medicated Lozenge) 1 lozenge MUCOUS MEM Q4H PRN PRN Reason: Sore Throat Brimonidine Tartrate (Brimonidine Tartrate 0.2% Oph 5 Ml Bottle) 1 drop EYE-BOTH TID [facility] Last Admin: 10/09/23 08:12 Dose: 1 drop Donepezil HCl (Donepezil Hcl 10 Mg Tablet) 10 mg PO BEDTIME [facility] Last Admin: 10/08/23 19:59 Dose: 10 mg Guaifenesin (Guaifenesin 200 Mg/10 Ml 10 Ml Liquid) 10 ml PO Q6H PRN PRN Reason: Cough Last Admin: 09/05/23 23:21 Dose: 10 ml Lidocaine (Lidocaine 4 % Patch Adh..Patch) 2 patch TRANSDERMA DAILY PRN; Protocol PRN Reason: bilateral low back pain Last Admin: 09/26/23 04:27 Dose: 2 patch Magnesium Hydroxide (Milk Of Magnesia 30 Ml Oral.Susp) 30 ml PO DAILY PRN PRN Reason: Constipation Last Admin: 08/23/23 08:41 Dose: 30 ml Memantine (Memantine Hcl 10 Mg Tablet) 10 mg PO BID [facility] Last Admin: 10/09/23 08:10 Dose: 10 mg Quetiapine Fumarate (Quetiapine Fumarate 25 Mg Tablet) 25 mg PO BID PRN PRN Reason: anxiety/agitation Last Admin: 10/08/23 00:06 Dose: 25 mg Quetiapine Fumarate (Quetiapine Fumarate 25 Mg Tablet) 25 mg PO DAILY@1700 [facility] Last Admin: 10/08/23 17:00 Dose: 25 mg Quetiapine Fumarate (Quetiapine Fumarate 25 Mg Tablet) 12.5 mg PO BID@0830,1330 [facility] Last Admin: 10/09/23 08:10 Dose: 12.5 mg Quetiapine Fumarate (Quetiapine Fumarate 50 Mg Tablet) 50 mg PO BEDTIME [facility] Last Admin: 10/08/23 19:59 Dose: 50 mg Sumatriptan Succinate (Sumatriptan Succinate 50 Mg Tablet) 50 mg PO DAILY MRX1 PRN PRN Reason: Migraine Headache Last Admin: 10/04/23 09:47 Dose: 50 mg Thiamine HCl (Thiamine Hcl 100 Mg Tablet) 100 mg PO DAILY [facility] Last Admin: 10/09/23 08:10 Dose: 100 mg Trazodone HCl (Trazodone Hcl 50 Mg Tablet) 50 mg PO BEDTIME MRX1 PRN PRN Reason: Insomnia Last Admin: 10/08/23 00:05 Dose: 50 mg Allergies Allergies Allergy/AdvReac Type Severity Reaction Status Date / Time Sulfa (Sulfonamide Allergy Severe ANAPHYLAXIS Verified 08/25/23 23:13 Antibiotics) [SULFA (SULFONAMIDE ANTIBIOTICS)] mold Allergy Intermediate Shortness Verified 08/25/23 22:42 of Breath Assessment & Plan Assessment & Plan (1) Alcohol abuse with alcohol-induced mental disorder: Status: Acute Code(s): F10.188 - Alcohol abuse with other alcohol-induced disorder Plan The patient is a 78-year-old male with a past history of alcohol use disorder who was brought to the emergency room of another hospital for psychotic symptoms at the this moment currently denies. 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 09/19 patient adamant about being able to go home soon. Unaware of cognitive issues Plan 1. Gather collateral information. We will try to contact his family and start working on proper diagnosis and treatment plan. 2. Continue with medications as prescribed. 3. We will continue with medical workout. 4. MRI without contrast done that showed no destruction of pulmonary by this. 5. 15 minute checks since the patient is able to contract for safety.. 6. Start Namenda 5 mg p.o. b.i.d. to target cognitive impairment due to dementia. 7. Even though that his dementia is advanced, we will start Aricept 5 mg p.o. q.h.s. in combination with Namenda since it can help on diminishing the progression of his cognitive impairment. On March 05 we increased Aricept to 10 mg p.o. q.h.s. the plan is to increase over the weekend to Namenda 10 mg p.o. b.i.d. 8. Waiting for placement. 9. Seroquel 25 mg p.o. at 17:00 to avoid ing. 10. Increase Seroquel up 12.5 p.o. b.i.d. on August 17. 11. Start tramadol p.r.n. [id number] pain on August 20. 12. On August 22 we are adding Seroquel 25 at bedtime. Total dose of Seroquel 75 mg a day 13. start Keflex 500 mg p.o. b.i.d. for cellulitis the cellulitis resolved. Reason for continued inpatient stay Substantial Risk for: inability to function, rapid decompensation and med/psych decompensation Time Spent With Patient Time: Total time managing care of this patient today __20__ minutes.
[2023-10-09] MEDS: QUEtiapine Fumarate 25 MG TABLET PO (17:19)
[2023-10-09 19:48] VITALS: BP 140/78; PULSE 75; RESP 16; TEMP 36.6; O2SAT 94
[2023-10-09] MEDS: Donepezil HCl 10 MG TABLET PO (20:20)
[2023-10-09] MEDS: QUEtiapine Fumarate 50 MG TABLET PO (20:21)
[2023-10-10 08:05] VITALS: BP 128/65; PULSE 82; RESP 18; TEMP 36.3; O2SAT 94
--- NOTE | 2023-10-10 08:38 | HO.PSYCHPN ---
Subjective Subjective Date of Service: 10/10/23 Reason For Visit: Adjustment disorder,w/mixed disturbance of emotion Subjective Notes: Conditional Voluntary Healthcare Proxy: Yes Interim History: Pt slept through the night. No Si/HI. no aggression towards self or others. VS stable. awaiting placement. Review of Systems Review of Systems Denies today Yes all other systems are reviewed and are negative Mental Status Exam Mental Status Exam Narrative: Kempt except dick which he would like to shave Patient Appearance: Appropriate Patient Orientation: Person and Situation Level of Consciousness: Awake Patient Behavior: Guarded and Passive Mood Description: Withdrawn Affect Description: Constricted Patient Cognition Impaired: Yes Ability to Follow Directions: Good Speech Pattern: Clear Memory Description: Recent Impaired Diagnostics Vital Signs (24Hr): Vital Signs - 24 hr 10/09/23 19:48 10/10/23 08:05 Temperature 97.8 F 97.3 F Pulse Rate 75 82 Respiratory Rate 16 18 Blood Pressure 140/78 H 128/65 Pulse Oximetry 94 94 Oxygen Delivery Method Room Air Room Air BMI result Body Mass Index 23.6 Labs 07/29/23 08:35 Imaging Radiology Impressions: ITS Impressions Shoulder X-Ray 07/30/23 09:55 IMPRESSION: 1. No metallic foreign body. 2. Calcification adjacent to the humeral head likely on the basis of calcific tendinosis. Orbit X-Ray 07/30/23 11:07 IMPRESSION: 1. No unexpected radiopaque foreign bodies. 2. Clear lungs. 3. Nonobstructive bowel gas pattern. 4. Moderate to large degree of colonic stool burden. Brain MRI 07/30/23 20:40 IMPRESSION: No acute intracranial abnormality. No findings to suggest Wernicke encephalopathy. Hand X-Ray 08/26/23 09:05 IMPRESSION: No fracture seen. Medications Medications Current Medications Acetaminophen (Acetaminophen 325 Mg Tablet) 650 mg PO Q6H PRN PRN Reason: Headache/Pain (1-10) Last Admin: 10/08/23 15:53 Dose: 650 mg Al Hydroxide/Mg Hydroxide (Magnesium Hydrox/Alum Hydrox 30 Ml Oral.Susp) 30 ml PO Q6H PRN PRN Reason: Heartburn/Nausea Last Admin: 10/01/23 23:30 Dose: 30 ml Artificial Tears (Artificial Tears 15 Ml Drops) 1 drop EYE-BOTH Q4H PRN PRN Reason: Dry Eyes Last Admin: 10/04/23 09:24 Dose: 1 drop Benzocaine (Throat Lozenge, Medicated Lozenge) 1 lozenge MUCOUS MEM Q4H PRN PRN Reason: Sore Throat Brimonidine Tartrate (Brimonidine Tartrate 0.2% Oph 5 Ml Bottle) 1 drop EYE-BOTH TID [facility] Last Admin: 10/09/23 20:21 Dose: 1 drop Donepezil HCl (Donepezil Hcl 10 Mg Tablet) 10 mg PO BEDTIME [facility] Last Admin: 10/09/23 20:20 Dose: 10 mg Guaifenesin (Guaifenesin 200 Mg/10 Ml 10 Ml Liquid) 10 ml PO Q6H PRN PRN Reason: Cough Last Admin: 09/05/23 23:21 Dose: 10 ml Lidocaine (Lidocaine 4 % Patch Adh..Patch) 2 patch TRANSDERMA DAILY PRN; Protocol PRN Reason: bilateral low back pain Last Admin: 09/26/23 04:27 Dose: 2 patch Magnesium Hydroxide (Milk Of Magnesia 30 Ml Oral.Susp) 30 ml PO DAILY PRN PRN Reason: Constipation Last Admin: 08/23/23 08:41 Dose: 30 ml Memantine (Memantine Hcl 10 Mg Tablet) 10 mg PO BID [facility] Last Admin: 10/09/23 20:20 Dose: 10 mg Quetiapine Fumarate (Quetiapine Fumarate 25 Mg Tablet) 25 mg PO BID PRN PRN Reason: anxiety/agitation Last Admin: 10/08/23 00:06 Dose: 25 mg Quetiapine Fumarate (Quetiapine Fumarate 25 Mg Tablet) 25 mg PO DAILY@1700 [facility] Last Admin: 10/09/23 17:19 Dose: 25 mg Quetiapine Fumarate (Quetiapine Fumarate 25 Mg Tablet) 12.5 mg PO BID@0830,1330 [facility] Last Admin: 10/09/23 15:58 Dose: Not Given Quetiapine Fumarate (Quetiapine Fumarate 50 Mg Tablet) 50 mg PO BEDTIME [facility] Last Admin: 10/09/23 20:21 Dose: 50 mg Sumatriptan Succinate (Sumatriptan Succinate 50 Mg Tablet) 50 mg PO DAILY MRX1 PRN PRN Reason: Migraine Headache Last Admin: 10/04/23 09:47 Dose: 50 mg Thiamine HCl (Thiamine Hcl 100 Mg Tablet) 100 mg PO DAILY [facility] Last Admin: 10/09/23 08:10 Dose: 100 mg Trazodone HCl (Trazodone Hcl 50 Mg Tablet) 50 mg PO BEDTIME MRX1 PRN PRN Reason: Insomnia Last Admin: 10/08/23 00:05 Dose: 50 mg Allergies Allergies Allergy/AdvReac Type Severity Reaction Status Date / Time Sulfa (Sulfonamide Allergy Severe ANAPHYLAXIS Verified 08/25/23 23:13 Antibiotics) [SULFA (SULFONAMIDE ANTIBIOTICS)] mold Allergy Intermediate Shortness Verified 08/25/23 22:42 of Breath Assessment & Plan Assessment & Plan (1) Alcohol abuse with alcohol-induced mental disorder: Status: Acute Code(s): F10.188 - Alcohol abuse with other alcohol-induced disorder Plan The patient is a 78-year-old male with a past history of alcohol use disorder who was brought to the emergency room of another hospital for psychotic symptoms at the this moment currently denies. 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 09/19 patient adamant about being able to go home soon. Unaware of cognitive issues Plan 1. Gather collateral information. We will try to contact his family and start working on proper diagnosis and treatment plan. 2. Continue with medications as prescribed. 3. We will continue with medical workout. 4. MRI without contrast done that showed no destruction of pulmonary by this. 5. 15 minute checks since the patient is able to contract for safety.. 6. Start Namenda 5 mg p.o. b.i.d. to target cognitive impairment due to dementia. 7. Even though that his dementia is advanced, we will start Aricept 5 mg p.o. q.h.s. in combination with Namenda since it can help on diminishing the progression of his cognitive impairment. On March 05 we increased Aricept to 10 mg p.o. q.h.s. the plan is to increase over the weekend to Namenda 10 mg p.o. b.i.d. 8. Waiting for placement. 9. Seroquel 25 mg p.o. at 17:00 to avoid ing. 10. Increase Seroquel up 12.5 p.o. b.i.d. on August 17. 11. Start tramadol p.r.n. [id number] pain on August 20. 12. On August 22 we are adding Seroquel 25 at bedtime. Total dose of Seroquel 75 mg a day 13. start Keflex 500 mg p.o. b.i.d. for cellulitis the cellulitis resolved. Reason for continued inpatient stay Substantial Risk for: inability to function Time Spent With Patient Time: Total time managing care of this patient today ____ minutes.
[2023-10-10] MEDS: Memantine HCl 10 MG TABLET PO ×2 (08:42→20:34)
[2023-10-10] MEDS: QUEtiapine Fumarate 25 MG TABLET 12.5 MG PO ×2 (08:42→14:50)
[2023-10-10] MEDS: Thiamine HCL 100 MG TABLET PO (08:42)
[2023-10-10] MEDS: Brimonidine Tartrate 0.2% Oph 5 ML BOTTLE 1 DROP EYE-BOTH ×3 (08:42→20:34)
[2023-10-10] MEDS: QUEtiapine Fumarate 25 MG TABLET PO (17:01)
[2023-10-10 20:00] VITALS: BP 145/70; PULSE 67; RESP 18; TEMP 36.6; O2SAT 96
[2023-10-10] MEDS: traZODone HCL 50 MG TABLET PO (20:34)
[2023-10-10] MEDS: Donepezil HCl 10 MG TABLET PO (20:34)
[2023-10-10] MEDS: QUEtiapine Fumarate 50 MG TABLET PO (20:34)
[2023-10-11] MEDS: traZODone HCL 50 MG TABLET PO ×2 (00:54→20:18)
[2023-10-11] MEDS: QUEtiapine Fumarate 25 MG TABLET PO ×2 (00:54→16:52)
[2023-10-11 08:00] VITALS: BP 131/60; PULSE 84; RESP 17; TEMP 36.3; O2SAT 96
[2023-10-11] MEDS: QUEtiapine Fumarate 25 MG TABLET 12.5 MG PO ×2 (09:07→14:12)
[2023-10-11] MEDS: Thiamine HCL 100 MG TABLET PO (09:07)
[2023-10-11] MEDS: Memantine HCl 10 MG TABLET PO ×2 (09:07→20:18)
[2023-10-11] MEDS: Brimonidine Tartrate 0.2% Oph 5 ML BOTTLE 1 DROP EYE-BOTH ×3 (09:08→20:49)
[2023-10-11] MEDS: Acetaminophen 325 MG TABLET 650 MG PO (10:46)
--- NOTE | 2023-10-11 15:43 | HO.PSYCHPN ---
Subjective Subjective Date of Service: 10/11/23 Reason For Visit: Adjustment disorder,w/mixed disturbance of emotion Interim History: no requests or complaints. per staff, awaiting placement. no notable events or behaviors. Mental Status Exam Mental Status Exam Patient Appearance: Appropriate Patient Orientation: Person and Situation Level of Consciousness: Awake Patient Behavior: Guarded and Passive Mood Description: Withdrawn Affect Description: Constricted Patient Cognition Impaired: Yes Ability to Follow Directions: Good Speech Pattern: Clear Memory Description: Recent Impaired Diagnostics Vital Signs (24Hr): Vital Signs - 24 hr 10/10/23 20:00 10/11/23 08:00 Temperature 97.9 F 97.3 F Pulse Rate 67 84 Respiratory Rate 18 17 Blood Pressure 145/70 H 131/60 Pulse Oximetry 96 96 Oxygen Delivery Method Room Air Room Air BMI result Body Mass Index 23.6 Labs 07/29/23 08:35 Imaging Radiology Impressions: ITS Impressions Shoulder X-Ray 07/30/23 09:55 IMPRESSION: 1. No metallic foreign body. 2. Calcification adjacent to the humeral head likely on the basis of calcific tendinosis. Orbit X-Ray 07/30/23 11:07 IMPRESSION: 1. No unexpected radiopaque foreign bodies. 2. Clear lungs. 3. Nonobstructive bowel gas pattern. 4. Moderate to large degree of colonic stool burden. Brain MRI 07/30/23 20:40 IMPRESSION: No acute intracranial abnormality. No findings to suggest Wernicke encephalopathy. Hand X-Ray 08/26/23 09:05 IMPRESSION: No fracture seen. Medications Medications Current Medications Acetaminophen (Acetaminophen 325 Mg Tablet) 650 mg PO Q6H PRN PRN Reason: Headache/Pain (1-10) Last Admin: 10/11/23 10:46 Dose: 650 mg Al Hydroxide/Mg Hydroxide (Magnesium Hydrox/Alum Hydrox 30 Ml Oral.Susp) 30 ml PO Q6H PRN PRN Reason: Heartburn/Nausea Last Admin: 10/01/23 23:30 Dose: 30 ml Artificial Tears (Artificial Tears 15 Ml Drops) 1 drop EYE-BOTH Q4H PRN PRN Reason: Dry Eyes Last Admin: 10/04/23 09:24 Dose: 1 drop Benzocaine (Throat Lozenge, Medicated Lozenge) 1 lozenge MUCOUS MEM Q4H PRN PRN Reason: Sore Throat Brimonidine Tartrate (Brimonidine Tartrate 0.2% Oph 5 Ml Bottle) 1 drop EYE-BOTH TID [facility] Last Admin: 10/11/23 09:08 Dose: 1 drop Donepezil HCl (Donepezil Hcl 10 Mg Tablet) 10 mg PO BEDTIME [facility] Last Admin: 10/10/23 20:34 Dose: 10 mg Guaifenesin (Guaifenesin 200 Mg/10 Ml 10 Ml Liquid) 10 ml PO Q6H PRN PRN Reason: Cough Last Admin: 09/05/23 23:21 Dose: 10 ml Lidocaine (Lidocaine 4 % Patch Adh..Patch) 2 patch TRANSDERMA DAILY PRN; Protocol PRN Reason: bilateral low back pain Last Admin: 09/26/23 04:27 Dose: 2 patch Magnesium Hydroxide (Milk Of Magnesia 30 Ml Oral.Susp) 30 ml PO DAILY PRN PRN Reason: Constipation Last Admin: 08/23/23 08:41 Dose: 30 ml Memantine (Memantine Hcl 10 Mg Tablet) 10 mg PO BID [facility] Last Admin: 10/11/23 09:07 Dose: 10 mg Quetiapine Fumarate (Quetiapine Fumarate 25 Mg Tablet) 25 mg PO BID PRN PRN Reason: anxiety/agitation Last Admin: 10/11/23 00:54 Dose: 25 mg Quetiapine Fumarate (Quetiapine Fumarate 25 Mg Tablet) 25 mg PO DAILY@1700 [facility] Last Admin: 10/10/23 17:01 Dose: 25 mg Quetiapine Fumarate (Quetiapine Fumarate 25 Mg Tablet) 12.5 mg PO BID@0830,1330 [facility] Last Admin: 10/11/23 14:12 Dose: 12.5 mg Quetiapine Fumarate (Quetiapine Fumarate 50 Mg Tablet) 50 mg PO BEDTIME [facility] Last Admin: 10/10/23 20:34 Dose: 50 mg Sumatriptan Succinate (Sumatriptan Succinate 50 Mg Tablet) 50 mg PO DAILY MRX1 PRN PRN Reason: Migraine Headache Last Admin: 10/04/23 09:47 Dose: 50 mg Thiamine HCl (Thiamine Hcl 100 Mg Tablet) 100 mg PO DAILY [facility] Last Admin: 10/11/23 09:07 Dose: 100 mg Trazodone HCl (Trazodone Hcl 50 Mg Tablet) 50 mg PO BEDTIME MRX1 PRN PRN Reason: Insomnia Last Admin: 10/11/23 00:54 Dose: 50 mg Allergies Allergies Allergy/AdvReac Type Severity Reaction Status Date / Time Sulfa (Sulfonamide Allergy Severe ANAPHYLAXIS Verified 08/25/23 23:13 Antibiotics) [SULFA (SULFONAMIDE ANTIBIOTICS)] mold Allergy Intermediate Shortness Verified 08/25/23 22:42 of Breath Assessment & Plan Assessment & Plan (1) Alcohol abuse with alcohol-induced mental disorder: Status: Acute Code(s): F10.188 - Alcohol abuse with other alcohol-induced disorder Plan The patient is a 78-year-old male with a past history of alcohol use disorder who was brought to the emergency room of another hospital for psychotic symptoms at the this moment currently denies. 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 09/19 patient adamant about being able to go home soon. Unaware of cognitive issues Plan 1. Gather collateral information. We will try to contact his family and start working on proper diagnosis and treatment plan. 2. Continue with medications as prescribed. 3. We will continue with medical workout. 4. MRI without contrast done that showed no destruction of pulmonary by this. 5. 15 minute checks since the patient is able to contract for safety.. 6. Start Namenda 5 mg p.o. b.i.d. to target cognitive impairment due to dementia. 7. Even though that his dementia is advanced, we will start Aricept 5 mg p.o. q.h.s. in combination with Namenda since it can help on diminishing the progression of his cognitive impairment. On March 05 we increased Aricept to 10 mg p.o. q.h.s. the plan is to increase over the weekend to Namenda 10 mg p.o. b.i.d. 8. Waiting for placement. 9. Seroquel 25 mg p.o. at 17:00 to avoid . 10. Increase Seroquel up 12.5 p.o. b.i.d. on August 17. 11. Start tramadol p.r.n. [id number] pain on August 20. 12. On August 22 we are adding Seroquel 25 at bedtime. Total dose of Seroquel 75 mg a day 13. start Keflex 500 mg p.o. b.i.d. for cellulitis the cellulitis resolved. Reason for continued inpatient stay Substantial Risk for: inability to function and rapid decompensation Time Spent With Patient Time: Total time managing care of this patient today ____ minutes.
[2023-10-11 20:00] VITALS: BP 117/65; PULSE 73; RESP 17; TEMP 36.3; O2SAT 96
[2023-10-11] MEDS: Donepezil HCl 10 MG TABLET PO (20:18)
[2023-10-11] MEDS: QUEtiapine Fumarate 50 MG TABLET PO (20:18)
[2023-10-11] MEDS: SUMAtriptan succinate 50 MG TABLET PO (20:18)
[2023-10-12] MEDS: Acetaminophen 325 MG TABLET 650 MG PO (05:58)
[2023-10-12 08:00] VITALS: BP 118/58; PULSE 73; RESP 17; TEMP 36.6; O2SAT 95
[2023-10-12] MEDS: Memantine HCl 10 MG TABLET PO ×2 (08:10→20:52)
[2023-10-12] MEDS: QUEtiapine Fumarate 25 MG TABLET 12.5 MG PO ×2 (08:10→13:27)
[2023-10-12] MEDS: Thiamine HCL 100 MG TABLET PO (08:10)
[2023-10-12] MEDS: Brimonidine Tartrate 0.2% Oph 5 ML BOTTLE 1 DROP EYE-BOTH ×3 (08:13→20:53)
--- NOTE | 2023-10-12 15:23 | P.PNPSI_ITS ---
Subjective Subjective Date of Service: 10/12/23 Reason For Visit: Adjustment disorder,w/mixed disturbance of emotion Interim History: calm, cooperative, pleasant. asking about discharge, otherwise no complaints or requests. per staff, no change. pleasantly confused. Mental Status Exam Mental Status Exam Patient Appearance: Appropriate Patient Orientation: Person and Situation Level of Consciousness: Awake Patient Behavior: Guarded and Passive Mood Description: Withdrawn Affect Description: Constricted Patient Cognition Impaired: Yes Ability to Follow Directions: Good Speech Pattern: Clear Memory Description: Recent Impaired Diagnostics Vital Signs (24Hr): Vital Signs - 24 hr 10/11/23 20:00 10/12/23 08:00 Temperature 97.4 F 97.8 F Pulse Rate 73 73 Respiratory Rate 17 17 Blood Pressure 117/65 118/58 L Pulse Oximetry 96 95 Oxygen Delivery Method Room Air Room Air BMI result Body Mass Index 23.6 Labs 07/29/23 08:35 Imaging Radiology Impressions: ITS Impressions Shoulder X-Ray 07/30/23 09:55 IMPRESSION: 1. No metallic foreign body. 2. Calcification adjacent to the humeral head likely on the basis of calcific tendinosis. Orbit X-Ray 07/30/23 11:07 IMPRESSION: 1. No unexpected radiopaque foreign bodies. 2. Clear lungs. 3. Nonobstructive bowel gas pattern. 4. Moderate to large degree of colonic stool burden. Brain MRI 07/30/23 20:40 IMPRESSION: No acute intracranial abnormality. No findings to suggest Wernicke encephalopathy. Hand X-Ray 08/26/23 09:05 IMPRESSION: No fracture seen. Medications Medications Current Medications Acetaminophen (Acetaminophen 325 Mg Tablet) 650 mg PO Q6H PRN PRN Reason: Headache/Pain (1-10) Last Admin: 10/12/23 05:58 Dose: 650 mg Al Hydroxide/Mg Hydroxide (Magnesium Hydrox/Alum Hydrox 30 Ml Oral.Susp) 30 ml PO Q6H PRN PRN Reason: Heartburn/Nausea Last Admin: 10/01/23 23:30 Dose: 30 ml Artificial Tears (Artificial Tears 15 Ml Drops) 1 drop EYE-BOTH Q4H PRN PRN Reason: Dry Eyes Last Admin: 10/04/23 09:24 Dose: 1 drop Benzocaine (Throat Lozenge, Medicated Lozenge) 1 lozenge MUCOUS MEM Q4H PRN PRN Reason: Sore Throat Brimonidine Tartrate (Brimonidine Tartrate 0.2% Oph 5 Ml Bottle) 1 drop EYE- BOTH TID [facility] Last Admin: 10/12/23 08:13 Dose: 1 drop Donepezil HCl (Donepezil Hcl 10 Mg Tablet) 10 mg PO BEDTIME [facility] Last Admin: 10/11/23 20:18 Dose: 10 mg Guaifenesin (Guaifenesin 200 Mg/10 Ml 10 Ml Liquid) 10 ml PO Q6H PRN PRN Reason: Cough Last Admin: 09/05/23 23:21 Dose: 10 ml Lidocaine (Lidocaine 4 % Patch Adh..Patch) 2 patch TRANSDERMA DAILY PRN; Protocol PRN Reason: bilateral low back pain Last Admin: 09/26/23 04:27 Dose: 2 patch Magnesium Hydroxide (Milk Of Magnesia 30 Ml Oral.Susp) 30 ml PO DAILY PRN PRN Reason: Constipation Last Admin: 08/23/23 08:41 Dose: 30 ml Memantine (Memantine Hcl 10 Mg Tablet) 10 mg PO BID [facility] Last Admin: 10/12/23 08:10 Dose: 10 mg Quetiapine Fumarate (Quetiapine Fumarate 25 Mg Tablet) 25 mg PO BID PRN PRN Reason: anxiety/agitation Last Admin: 10/11/23 00:54 Dose: 25 mg Quetiapine Fumarate (Quetiapine Fumarate 25 Mg Tablet) 25 mg PO DAILY@1700 [facility] Last Admin: 10/11/23 16:52 Dose: 25 mg Quetiapine Fumarate (Quetiapine Fumarate 25 Mg Tablet) 12.5 mg PO BID@0830,1330 [facility] Last Admin: 10/12/23 13:27 Dose: 12.5 mg Quetiapine Fumarate (Quetiapine Fumarate 50 Mg Tablet) 50 mg PO BEDTIME [facility] Last Admin: 10/11/23 20:18 Dose: 50 mg Sumatriptan Succinate (Sumatriptan Succinate 50 Mg Tablet) 50 mg PO DAILY MRX1 PRN PRN Reason: Migraine Headache Last Admin: 10/11/23 20:18 Dose: 50 mg Thiamine HCl (Thiamine Hcl 100 Mg Tablet) 100 mg PO DAILY [facility] Last Admin: 10/12/23 08:10 Dose: 100 mg Trazodone HCl (Trazodone Hcl 50 Mg Tablet) 50 mg PO BEDTIME MRX1 PRN PRN Reason: Insomnia Last Admin: 10/11/23 20:18 Dose: 50 mg Allergies Allergies Allergy/AdvReac Type Severity Reaction Status Date / Time Sulfa (Sulfonamide Allergy Severe ANAPHYLAXIS Verified 08/25/23 23:13 Antibiotics) [SULFA (SULFONAMIDE ANTIBIOTICS)] mold Allergy Intermediate Shortness Verified 08/25/23 22:42 of Breath Assessment & Plan Assessment & Plan (1) Alcohol abuse with alcohol-induced mental disorder: Status: Acute Code(s): F10.188 - Alcohol abuse with other alcohol-induced disorder Plan The patient is a 78-year-old male with a past history of alcohol use disorder who was brought to the emergency room of another hospital for psychotic symptoms at the this moment currently denies. 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 09/19 patient adamant about being able to go home soon. Unaware of cognitive issues Plan 1. Gather collateral information. We will try to contact his family and start working on proper diagnosis and treatment plan. 2. Continue with medications as prescribed. 3. We will continue with medical workout. 4. MRI without contrast done that showed no destruction of pulmonary by this. 5. 15 minute checks since the patient is able to contract for safety.. 6. Start Namenda 5 mg p.o. b.i.d. to target cognitive impairment due to dementia. 7. Even though that his dementia is advanced, we will start Aricept 5 mg p.o. q.h.s. in combination with Namenda since it can help on diminishing the progression of his cognitive impairment. On March 05 we increased Aricept to 10 mg p.o. q.h.s. the plan is to increase over the weekend to Namenda 10 mg p.o. b.i.d. 8. Waiting for placement. 9. Seroquel 25 mg p.o. at 17:00 to avoid ing. 10. Increase Seroquel up 12.5 p.o. b.i.d. on August 17. 11. Start tramadol p.r.n. [id number] pain on August 20. 12. On August 22 we are adding Seroquel 25 at bedtime. Total dose of Seroquel 75 mg a day 13. start Keflex 500 mg p.o. b.i.d. for cellulitis the cellulitis resolved. Reason for continued inpatient stay Substantial Risk for: inability to function Time Spent With Patient Time: Total time managing care of this patient today ____ minutes.
[2023-10-12] MEDS: QUEtiapine Fumarate 25 MG TABLET PO (16:59)
[2023-10-12 20:00] VITALS: BP 158/94; PULSE 82; RESP 18; TEMP 36.7; O2SAT 95
[2023-10-12] MEDS: Donepezil HCl 10 MG TABLET PO (20:52)
[2023-10-12] MEDS: traZODone HCL 50 MG TABLET PO (20:52)
[2023-10-12] MEDS: QUEtiapine Fumarate 50 MG TABLET PO (20:52)
[2023-10-13 08:48] VITALS: BP 130/61; PULSE 75; RESP 16; TEMP 36.4; O2SAT 96
[2023-10-13] MEDS: Brimonidine Tartrate 0.2% Oph 5 ML BOTTLE 1 DROP EYE-BOTH ×3 (08:52→20:25)
[2023-10-13] MEDS: Memantine HCl 10 MG TABLET PO ×2 (08:53→20:24)
[2023-10-13] MEDS: QUEtiapine Fumarate 25 MG TABLET 12.5 MG PO ×2 (09:02→14:09)
[2023-10-13] MEDS: Thiamine HCL 100 MG TABLET PO (09:04)
--- NOTE | 2023-10-13 09:55 | P.PNPSI_ITS ---
Subjective Subjective Date of Service: 10/13/23 Reason For Visit: Adjustment disorder,w/mixed disturbance of emotion Subjective Notes: Conditional Voluntary Healthcare Proxy: Yes Interim History: Pt slept most of the night. No behavioral concerns. Pt reports he only met with someone once who old him that he may go to a place, which he does not want as again after explaining cognitive impairments, he does not think this is accurate. No SI/HI. No VH/AH. visible and social with select peers. eating well. VS stable. Review of Systems Review of Systems Denies today Yes all other systems are reviewed and are negative Mental Status Exam Mental Status Exam Patient Appearance: Appropriate Patient Orientation: Person and Situation Level of Consciousness: Awake Patient Behavior: Guarded and Passive Mood Description: Withdrawn Affect Description: Constricted Patient Cognition Impaired: Yes Ability to Follow Directions: Good Speech Pattern: Clear Memory Description: Recent Impaired Diagnostics Vital Signs (24Hr): Vital Signs - 24 hr 10/12/23 20:00 10/13/23 08:48 Temperature 98.1 F 97.5 F Pulse Rate 82 75 Respiratory Rate 18 16 Blood Pressure 158/94 H 130/61 Pulse Oximetry 95 96 Oxygen Delivery Method Room Air Room Air BMI result Body Mass Index 23.6 Labs 07/29/23 08:35 Imaging Radiology Impressions: ITS Impressions Shoulder X-Ray 07/30/23 09:55 IMPRESSION: 1. No metallic foreign body. 2. Calcification adjacent to the humeral head likely on the basis of calcific tendinosis. Orbit X-Ray 07/30/23 11:07 IMPRESSION: 1. No unexpected radiopaque foreign bodies. 2. Clear lungs. 3. Nonobstructive bowel gas pattern. 4. Moderate to large degree of colonic stool burden. Brain MRI 07/30/23 20:40 IMPRESSION: No acute intracranial abnormality. No findings to suggest Wernicke encephalopathy. Hand X-Ray 08/26/23 09:05 IMPRESSION: No fracture seen. Medications Medications Current Medications Acetaminophen (Acetaminophen 325 Mg Tablet) 650 mg PO Q6H PRN PRN Reason: Headache/Pain (1-10) Last Admin: 10/12/23 05:58 Dose: 650 mg Al Hydroxide/Mg Hydroxide (Magnesium Hydrox/Alum Hydrox 30 Ml Oral.Susp) 30 ml PO Q6H PRN PRN Reason: Heartburn/Nausea Last Admin: 10/01/23 23:30 Dose: 30 ml Artificial Tears (Artificial Tears 15 Ml Drops) 1 drop EYE-BOTH Q4H PRN PRN Reason: Dry Eyes Last Admin: 10/04/23 09:24 Dose: 1 drop Benzocaine (Throat Lozenge, Medicated Lozenge) 1 lozenge MUCOUS MEM Q4H PRN PRN Reason: Sore Throat Brimonidine Tartrate (Brimonidine Tartrate 0.2% Oph 5 Ml Bottle) 1 drop EYE- BOTH TID [facility] Last Admin: 10/13/23 08:52 Dose: 1 drop Donepezil HCl (Donepezil Hcl 10 Mg Tablet) 10 mg PO BEDTIME [facility] Last Admin: 10/12/23 20:52 Dose: 10 mg Guaifenesin (Guaifenesin 200 Mg/10 Ml 10 Ml Liquid) 10 ml PO Q6H PRN PRN Reason: Cough Last Admin: 09/05/23 23:21 Dose: 10 ml Lidocaine (Lidocaine 4 % Patch Adh..Patch) 2 patch TRANSDERMA DAILY PRN; Protocol PRN Reason: bilateral low back pain Last Admin: 09/26/23 04:27 Dose: 2 patch Magnesium Hydroxide (Milk Of Magnesia 30 Ml Oral.Susp) 30 ml PO DAILY PRN PRN Reason: Constipation Last Admin: 08/23/23 08:41 Dose: 30 ml Memantine (Memantine Hcl 10 Mg Tablet) 10 mg PO BID [facility] Last Admin: 10/13/23 08:53 Dose: 10 mg Quetiapine Fumarate (Quetiapine Fumarate 25 Mg Tablet) 25 mg PO BID PRN PRN Reason: anxiety/agitation Last Admin: 10/11/23 00:54 Dose: 25 mg Quetiapine Fumarate (Quetiapine Fumarate 25 Mg Tablet) 25 mg PO DAILY@1700 [facility] Last Admin: 10/12/23 16:59 Dose: 25 mg Quetiapine Fumarate (Quetiapine Fumarate 25 Mg Tablet) 12.5 mg PO BID@0830,1330 [facility] Last Admin: 10/13/23 09:02 Dose: 12.5 mg Quetiapine Fumarate (Quetiapine Fumarate 50 Mg Tablet) 50 mg PO BEDTIME [facility] Last Admin: 10/12/23 20:52 Dose: 50 mg Sumatriptan Succinate (Sumatriptan Succinate 50 Mg Tablet) 50 mg PO DAILY MRX1 PRN PRN Reason: Migraine Headache Last Admin: 10/11/23 20:18 Dose: 50 mg Thiamine HCl (Thiamine Hcl 100 Mg Tablet) 100 mg PO DAILY [facility] Last Admin: 10/13/23 09:04 Dose: 100 mg Trazodone HCl (Trazodone Hcl 50 Mg Tablet) 50 mg PO BEDTIME MRX1 PRN PRN Reason: Insomnia Last Admin: 10/12/23 20:52 Dose: 50 mg Allergies Allergies Allergy/AdvReac Type Severity Reaction Status Date / Time Sulfa (Sulfonamide Allergy Severe ANAPHYLAXIS Verified 08/25/23 23:13 Antibiotics) [SULFA (SULFONAMIDE ANTIBIOTICS)] mold Allergy Intermediate Shortness Verified 08/25/23 22:42 of Breath Assessment & Plan Assessment & Plan (1) Alcohol abuse with alcohol-induced mental disorder: Status: Acute Code(s): F10.188 - Alcohol abuse with other alcohol-induced disorder Plan The patient is a 78-year-old male with a past history of alcohol use disorder who was brought to the emergency room of another hospital for psychotic symptoms at the this moment currently denies. 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 09/19 patient adamant about being able to go home soon. Unaware of cognitive issues Plan 10/12- continue tx. awaiting placement. Reason for continued inpatient stay Substantial Risk for: inability to function Time Spent With Patient Time: Total time managing care of this patient today ____ minutes.
[2023-10-13] MEDS: QUEtiapine Fumarate 25 MG TABLET PO (17:16)
[2023-10-13 20:00] VITALS: BP 116/60; PULSE 88; RESP 18; TEMP 36.6; O2SAT 95
[2023-10-13] MEDS: traZODone HCL 50 MG TABLET PO (20:23)
[2023-10-13] MEDS: Donepezil HCl 10 MG TABLET PO (20:23)
[2023-10-13] MEDS: QUEtiapine Fumarate 50 MG TABLET PO (20:24)
[2023-10-14 08:05] VITALS: BP 123/62; PULSE 68; RESP 16; TEMP 36.5; O2SAT 94
[2023-10-14] MEDS: Brimonidine Tartrate 0.2% Oph 5 ML BOTTLE 1 DROP EYE-BOTH ×3 (08:15→20:33)
[2023-10-14] MEDS: Thiamine HCL 100 MG TABLET PO (08:15)
[2023-10-14] MEDS: Memantine HCl 10 MG TABLET PO ×2 (08:15→20:33)
[2023-10-14] MEDS: QUEtiapine Fumarate 25 MG TABLET 12.5 MG PO ×2 (08:15→13:27)
--- NOTE | 2023-10-14 13:13 | HO.PSYCHPN ---
Subjective Subjective Date of Service: 10/14/23 Reason For Visit: Adjustment disorder,w/mixed disturbance of emotion Subjective Notes: Conditional Voluntary Interim History: The nursing staff reported that the patient has been more frustrated waiting for placement. On interview he asked again about his discharge planning, unable to remember previous conversations. Mental Status Exam Mental Status Exam Patient Appearance: Appropriate Patient Orientation: Person and Situation Level of Consciousness: Awake and Appropriate Patient Behavior: Guarded and Passive Mood Description: Withdrawn Affect Description: Constricted Patient Cognition Impaired: Yes Ability to Follow Directions: Good Speech Pattern: Clear Hallucinations: None Delusions: Ideas of Reference Thought Process: Distracted and Slowed Thinking Thought Content: positive for [place] and positive for Poverty of Content Judgement: Fair Diagnostics Vital Signs (24Hr): Vital Signs - 24 hr 10/13/23 20:00 10/14/23 08:05 Temperature 97.8 F 97.7 F Pulse Rate 88 68 Respiratory Rate 18 16 Blood Pressure 116/60 123/62 Pulse Oximetry 95 94 Oxygen Delivery Method Room Air Room Air BMI result Body Mass Index 23.6 Labs 07/29/23 08:35 Imaging Radiology Impressions: ITS Impressions Shoulder X-Ray 07/30/23 09:55 IMPRESSION: 1. No metallic foreign body. 2. Calcification adjacent to the humeral head likely on the basis of calcific tendinosis. Orbit X-Ray 07/30/23 11:07 IMPRESSION: 1. No unexpected radiopaque foreign bodies. 2. Clear lungs. 3. Nonobstructive bowel gas pattern. 4. Moderate to large degree of colonic stool burden. Brain MRI 07/30/23 20:40 IMPRESSION: No acute intracranial abnormality. No findings to suggest Wernicke encephalopathy. Hand X-Ray 08/26/23 09:05 IMPRESSION: No fracture seen. Medications Medications Current Medications Acetaminophen (Acetaminophen 325 Mg Tablet) 650 mg PO Q6H PRN PRN Reason: Headache/Pain (1-10) Last Admin: 10/12/23 05:58 Dose: 650 mg Al Hydroxide/Mg Hydroxide (Magnesium Hydrox/Alum Hydrox 30 Ml Oral.Susp) 30 ml PO Q6H PRN PRN Reason: Heartburn/Nausea Last Admin: 10/01/23 23:30 Dose: 30 ml Artificial Tears (Artificial Tears 15 Ml Drops) 1 drop EYE-BOTH Q4H PRN PRN Reason: Dry Eyes Last Admin: 10/04/23 09:24 Dose: 1 drop Benzocaine (Throat Lozenge, Medicated Lozenge) 1 lozenge MUCOUS MEM Q4H PRN PRN Reason: Sore Throat Brimonidine Tartrate (Brimonidine Tartrate 0.2% Oph 5 Ml Bottle) 1 drop EYE-BOTH TID [facility] Last Admin: 10/14/23 08:15 Dose: 1 drop Donepezil HCl (Donepezil Hcl 10 Mg Tablet) 10 mg PO BEDTIME [facility] Last Admin: 10/13/23 20:23 Dose: 10 mg Guaifenesin (Guaifenesin 200 Mg/10 Ml 10 Ml Liquid) 10 ml PO Q6H PRN PRN Reason: Cough Last Admin: 09/05/23 23:21 Dose: 10 ml Lidocaine (Lidocaine 4 % Patch Adh..Patch) 2 patch TRANSDERMA DAILY PRN; Protocol PRN Reason: bilateral low back pain Last Admin: 09/26/23 04:27 Dose: 2 patch Magnesium Hydroxide (Milk Of Magnesia 30 Ml Oral.Susp) 30 ml PO DAILY PRN PRN Reason: Constipation Last Admin: 08/23/23 08:41 Dose: 30 ml Memantine (Memantine Hcl 10 Mg Tablet) 10 mg PO BID [facility] Last Admin: 10/14/23 08:15 Dose: 10 mg Quetiapine Fumarate (Quetiapine Fumarate 25 Mg Tablet) 25 mg PO BID PRN PRN Reason: anxiety/agitation Last Admin: 10/11/23 00:54 Dose: 25 mg Quetiapine Fumarate (Quetiapine Fumarate 25 Mg Tablet) 25 mg PO DAILY@1700 [facility] Last Admin: 10/13/23 17:16 Dose: 25 mg Quetiapine Fumarate (Quetiapine Fumarate 25 Mg Tablet) 12.5 mg PO BID@0830,1330 [facility] Last Admin: 10/14/23 08:15 Dose: 12.5 mg Quetiapine Fumarate (Quetiapine Fumarate 50 Mg Tablet) 50 mg PO BEDTIME [facility] Last Admin: 10/13/23 20:24 Dose: 50 mg Sumatriptan Succinate (Sumatriptan Succinate 50 Mg Tablet) 50 mg PO DAILY MRX1 PRN PRN Reason: Migraine Headache Last Admin: 10/11/23 20:18 Dose: 50 mg Thiamine HCl (Thiamine Hcl 100 Mg Tablet) 100 mg PO DAILY [facility] Last Admin: 10/14/23 08:15 Dose: 100 mg Trazodone HCl (Trazodone Hcl 50 Mg Tablet) 50 mg PO BEDTIME MRX1 PRN PRN Reason: Insomnia Last Admin: 10/13/23 20:23 Dose: 50 mg Allergies Allergies Allergy/AdvReac Type Severity Reaction Status Date / Time Sulfa (Sulfonamide Allergy Severe ANAPHYLAXIS Verified 08/25/23 23:13 Antibiotics) [SULFA (SULFONAMIDE ANTIBIOTICS)] mold Allergy Intermediate Shortness Verified 08/25/23 22:42 of Breath Assessment & Plan Assessment & Plan (1) Alcohol abuse with alcohol-induced mental disorder: Status: Acute Code(s): F10.188 - Alcohol abuse with other alcohol-induced disorder Plan The patient is a 78-year-old male with a past history of alcohol use disorder who was brought to the emergency room of another hospital for psychotic symptoms at the this moment currently denies. 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 09/19 patient adamant about being able to go home soon. Unaware of cognitive issues Plan 10/12- continue tx. awaiting placement. Reason for continued inpatient stay Substantial Risk for: inability to function, rapid decompensation and med/psych decompensation Time Spent With Patient Time: Total time managing care of this patient today __20__ minutes.
[2023-10-14] MEDS: QUEtiapine Fumarate 25 MG TABLET PO (17:17)
[2023-10-14 20:00] VITALS: BP 132/60; PULSE 78; RESP 18; TEMP 36.8; O2SAT 95
[2023-10-14] MEDS: QUEtiapine Fumarate 50 MG TABLET PO (20:33)
[2023-10-14] MEDS: Donepezil HCl 10 MG TABLET PO (20:33)
[2023-10-14] MEDS: traZODone HCL 50 MG TABLET PO (20:33)
[2023-10-15] MEDS: QUEtiapine Fumarate 25 MG TABLET PO ×2 (05:42→16:50)
[2023-10-15 08:05] VITALS: BP 132/62; PULSE 77; RESP 18; TEMP 36.7; O2SAT 95
[2023-10-15] MEDS: Thiamine HCL 100 MG TABLET PO (08:24)
[2023-10-15] MEDS: QUEtiapine Fumarate 25 MG TABLET 12.5 MG PO ×2 (08:24→13:24)
[2023-10-15] MEDS: Memantine HCl 10 MG TABLET PO ×2 (08:24→20:43)
[2023-10-15] MEDS: Brimonidine Tartrate 0.2% Oph 5 ML BOTTLE 1 DROP EYE-BOTH ×2 (08:26→20:43)
--- NOTE | 2023-10-15 15:54 | P.PNPSI_ITS ---
Subjective Subjective Date of Service: 10/15/23 Reason For Visit: Adjustment disorder,w/mixed disturbance of emotion Interim History: The nursing staff reported the patient had been more irritable since he does not have a clear discharge plan according to him. On interview the patient can not remember prior discussions that we had regarding discharge planning. Waiting for placement no changes in mental status Mental Status Exam Mental Status Exam Patient Appearance: Well Grooomed Patient Orientation: Person and Situation Level of Consciousness: Awake and Appropriate Patient Behavior: Appropriate Mood Description: Calm Affect Description: Constricted Patient Cognition Impaired: Yes Ability to Follow Directions: Fair Speech Pattern: Clear Hallucinations: None Delusions: Not Present Thought Process: Distracted and Slowed Thinking Thought Content: positive for [place] and positive for Thought Blocking Judgement: Poor Diagnostics Vital Signs (24Hr): Vital Signs - 24 hr 10/14/23 20:00 10/15/23 08:05 Temperature 98.2 F 98.1 F Pulse Rate 78 77 Respiratory Rate 18 18 Blood Pressure 132/60 132/62 Pulse Oximetry 95 95 Oxygen Delivery Method Room Air Room Air BMI result Body Mass Index 23.6 Labs 07/29/23 08:35 Imaging Radiology Impressions: ITS Impressions Shoulder X-Ray 07/30/23 09:55 IMPRESSION: 1. No metallic foreign body. 2. Calcification adjacent to the humeral head likely on the basis of calcific tendinosis. Orbit X-Ray 07/30/23 11:07 IMPRESSION: 1. No unexpected radiopaque foreign bodies. 2. Clear lungs. 3. Nonobstructive bowel gas pattern. 4. Moderate to large degree of colonic stool burden. Brain MRI 07/30/23 20:40 IMPRESSION: No acute intracranial abnormality. No findings to suggest Wernicke encephalopathy. Hand X-Ray 08/26/23 09:05 IMPRESSION: No fracture seen. Medications Medications Current Medications Acetaminophen (Acetaminophen 325 Mg Tablet) 650 mg PO Q6H PRN PRN Reason: Headache/Pain (1-10) Last Admin: 10/12/23 05:58 Dose: 650 mg Al Hydroxide/Mg Hydroxide (Magnesium Hydrox/Alum Hydrox 30 Ml Oral.Susp) 30 ml PO Q6H PRN PRN Reason: Heartburn/Nausea Last Admin: 10/01/23 23:30 Dose: 30 ml Artificial Tears (Artificial Tears 15 Ml Drops) 1 drop EYE-BOTH Q4H PRN PRN Reason: Dry Eyes Last Admin: 10/04/23 09:24 Dose: 1 drop Benzocaine (Throat Lozenge, Medicated Lozenge) 1 lozenge MUCOUS MEM Q4H PRN PRN Reason: Sore Throat Brimonidine Tartrate (Brimonidine Tartrate 0.2% Oph 5 Ml Bottle) 1 drop EYE- BOTH TID [facility] Last Admin: 10/15/23 15:38 Dose: Not Given Donepezil HCl (Donepezil Hcl 10 Mg Tablet) 10 mg PO BEDTIME [facility] Last Admin: 10/14/23 20:33 Dose: 10 mg Guaifenesin (Guaifenesin 200 Mg/10 Ml 10 Ml Liquid) 10 ml PO Q6H PRN PRN Reason: Cough Last Admin: 09/05/23 23:21 Dose: 10 ml Lidocaine (Lidocaine 4 % Patch Adh..Patch) 2 patch TRANSDERMA DAILY PRN; Protocol PRN Reason: bilateral low back pain Last Admin: 09/26/23 04:27 Dose: 2 patch Magnesium Hydroxide (Milk Of Magnesia 30 Ml Oral.Susp) 30 ml PO DAILY PRN PRN Reason: Constipation Last Admin: 08/23/23 08:41 Dose: 30 ml Memantine (Memantine Hcl 10 Mg Tablet) 10 mg PO BID [facility] Last Admin: 10/15/23 08:24 Dose: 10 mg Quetiapine Fumarate (Quetiapine Fumarate 25 Mg Tablet) 25 mg PO BID PRN PRN Reason: anxiety/agitation Last Admin: 10/15/23 05:42 Dose: 25 mg Quetiapine Fumarate (Quetiapine Fumarate 25 Mg Tablet) 25 mg PO DAILY@1700 [facility] Last Admin: 10/14/23 17:17 Dose: 25 mg Quetiapine Fumarate (Quetiapine Fumarate 25 Mg Tablet) 12.5 mg PO BID@0830,1330 [facility] Last Admin: 10/15/23 13:24 Dose: 12.5 mg Quetiapine Fumarate (Quetiapine Fumarate 50 Mg Tablet) 50 mg PO BEDTIME [facility] Last Admin: 10/14/23 20:33 Dose: 50 mg Sumatriptan Succinate (Sumatriptan Succinate 50 Mg Tablet) 50 mg PO DAILY MRX1 PRN PRN Reason: Migraine Headache Last Admin: 10/11/23 20:18 Dose: 50 mg Thiamine HCl (Thiamine Hcl 100 Mg Tablet) 100 mg PO DAILY [facility] Last Admin: 10/15/23 08:24 Dose: 100 mg Trazodone HCl (Trazodone Hcl 50 Mg Tablet) 50 mg PO BEDTIME MRX1 PRN PRN Reason: Insomnia Last Admin: 10/14/23 20:33 Dose: 50 mg Allergies Allergies Allergy/AdvReac Type Severity Reaction Status Date / Time Sulfa (Sulfonamide Allergy Severe ANAPHYLAXIS Verified 08/25/23 23:13 Antibiotics) [SULFA (SULFONAMIDE ANTIBIOTICS)] mold Allergy Intermediate Shortness Verified 08/25/23 22:42 of Breath Assessment & Plan Assessment & Plan (1) Alcohol abuse with alcohol-induced mental disorder: Status: Acute Code(s): F10.188 - Alcohol abuse with other alcohol-induced disorder Plan The patient is a 78-year-old male with a past history of alcohol use disorder who was brought to the emergency room of another hospital for psychotic symptoms at the this moment currently denies. 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 09/19 patient adamant about being able to go home soon. Unaware of cognitive issues Plan continue tx. awaiting placement. Reason for continued inpatient stay Substantial Risk for: inability to function, rapid decompensation and med/psych decompensation Time Spent With Patient Time: Total time managing care of this patient today __20__ minutes.
[2023-10-15 20:00] VITALS: BP 142/67; PULSE 68; RESP 16; TEMP 36.3; O2SAT 95
[2023-10-15] MEDS: Donepezil HCl 10 MG TABLET PO (20:43)
[2023-10-15] MEDS: traZODone HCL 50 MG TABLET PO (20:43)
[2023-10-15] MEDS: QUEtiapine Fumarate 50 MG TABLET PO (20:43)
[2023-10-15] MEDS: Magnesium Hydrox/Alum Hydrox 30 ML ORAL.SUSP PO (21:10)
[2023-10-16] MEDS: SUMAtriptan succinate 50 MG TABLET PO (06:46)
[2023-10-16 07:00] VITALS: BMI 23.3
[2023-10-16 08:00] VITALS: BP 133/72; PULSE 68; RESP 18; TEMP 36.6; O2SAT 97
[2023-10-16] MEDS: QUEtiapine Fumarate 25 MG TABLET 12.5 MG PO ×2 (08:14→14:00)
[2023-10-16] MEDS: Memantine HCl 10 MG TABLET PO ×2 (08:14→19:56)
[2023-10-16] MEDS: Thiamine HCL 100 MG TABLET PO (08:14)
[2023-10-16] MEDS: Brimonidine Tartrate 0.2% Oph 5 ML BOTTLE 1 DROP EYE-BOTH ×3 (08:15→19:57)
--- NOTE | 2023-10-16 09:11 | P.PNPSI_ITS ---
Subjective Subjective Date of Service: 10/16/23 Reason For Visit: Adjustment disorder,w/mixed disturbance of emotion Subjective Notes: Conditional Voluntary Interim History: Pt slept through the night. He is pleasant on approach although same questions about when is he leaving and no one informing him of the plan. He denies SI/HI. He is attending groups, participates appropriately. No behavioral concerns. Diagnostics Vital Signs (24Hr): Vital Signs - 24 hr 10/15/23 20:00 Temperature 97.3 F Pulse Rate 68 Respiratory Rate 16 Blood Pressure 142/67 H Pulse Oximetry 95 Oxygen Delivery Method Room Air BMI result Body Mass Index 23.6 Labs 07/29/23 08:35 Imaging Radiology Impressions: ITS Impressions Shoulder X-Ray 07/30/23 09:55 IMPRESSION: 1. No metallic foreign body. 2. Calcification adjacent to the humeral head likely on the basis of calcific tendinosis. Orbit X-Ray 07/30/23 11:07 IMPRESSION: 1. No unexpected radiopaque foreign bodies. 2. Clear lungs. 3. Nonobstructive bowel gas pattern. 4. Moderate to large degree of colonic stool burden. Brain MRI 07/30/23 20:40 IMPRESSION: No acute intracranial abnormality. No findings to suggest Wernicke encephalopathy. Hand X-Ray 08/26/23 09:05 IMPRESSION: No fracture seen. Medications Medications Current Medications Acetaminophen (Acetaminophen 325 Mg Tablet) 650 mg PO Q6H PRN PRN Reason: Headache/Pain (1-10) Last Admin: 10/12/23 05:58 Dose: 650 mg Al Hydroxide/Mg Hydroxide (Magnesium Hydrox/Alum Hydrox 30 Ml Oral.Susp) 30 ml PO Q6H PRN PRN Reason: Heartburn/Nausea Last Admin: 10/15/23 21:10 Dose: 30 ml Artificial Tears (Artificial Tears 15 Ml Drops) 1 drop EYE-BOTH Q4H PRN PRN Reason: Dry Eyes Last Admin: 10/04/23 09:24 Dose: 1 drop Benzocaine (Throat Lozenge, Medicated Lozenge) 1 lozenge MUCOUS MEM Q4H PRN PRN Reason: Sore Throat Brimonidine Tartrate (Brimonidine Tartrate 0.2% Oph 5 Ml Bottle) 1 drop EYE- BOTH TID [facility] Last Admin: 10/16/23 08:15 Dose: 1 drop Donepezil HCl (Donepezil Hcl 10 Mg Tablet) 10 mg PO BEDTIME [facility] Last Admin: 10/15/23 20:43 Dose: 10 mg Guaifenesin (Guaifenesin 200 Mg/10 Ml 10 Ml Liquid) 10 ml PO Q6H PRN PRN Reason: Cough Last Admin: 09/05/23 23:21 Dose: 10 ml Lidocaine (Lidocaine 4 % Patch Adh..Patch) 2 patch TRANSDERMA DAILY PRN; Protocol PRN Reason: bilateral low back pain Last Admin: 09/26/23 04:27 Dose: 2 patch Magnesium Hydroxide (Milk Of Magnesia 30 Ml Oral.Susp) 30 ml PO DAILY PRN PRN Reason: Constipation Last Admin: 08/23/23 08:41 Dose: 30 ml Memantine (Memantine Hcl 10 Mg Tablet) 10 mg PO BID [facility] Last Admin: 10/16/23 08:14 Dose: 10 mg Quetiapine Fumarate (Quetiapine Fumarate 25 Mg Tablet) 25 mg PO BID PRN PRN Reason: anxiety/agitation Last Admin: 10/15/23 05:42 Dose: 25 mg Quetiapine Fumarate (Quetiapine Fumarate 25 Mg Tablet) 25 mg PO DAILY@1700 [facility] Last Admin: 10/15/23 16:50 Dose: 25 mg Quetiapine Fumarate (Quetiapine Fumarate 25 Mg Tablet) 12.5 mg PO BID@0830,1330 [facility] Last Admin: 10/16/23 08:14 Dose: 12.5 mg Quetiapine Fumarate (Quetiapine Fumarate 50 Mg Tablet) 50 mg PO BEDTIME [facility] Last Admin: 10/15/23 20:43 Dose: 50 mg Sumatriptan Succinate (Sumatriptan Succinate 50 Mg Tablet) 50 mg PO DAILY MRX1 PRN PRN Reason: Migraine Headache Last Admin: 10/16/23 06:46 Dose: 50 mg Thiamine HCl (Thiamine Hcl 100 Mg Tablet) 100 mg PO DAILY [facility] Last Admin: 10/16/23 08:14 Dose: 100 mg Trazodone HCl (Trazodone Hcl 50 Mg Tablet) 50 mg PO BEDTIME MRX1 PRN PRN Reason: Insomnia Last Admin: 10/15/23 20:43 Dose: 50 mg Allergies Allergies Allergy/AdvReac Type Severity Reaction Status Date / Time Sulfa (Sulfonamide Allergy Severe ANAPHYLAXIS Verified 08/25/23 23:13 Antibiotics) [SULFA (SULFONAMIDE ANTIBIOTICS)] mold Allergy Intermediate Shortness Verified 08/25/23 22:42 of Breath Assessment & Plan Assessment & Plan (1) Alcohol abuse with alcohol-induced mental disorder: Status: Acute Code(s): F10.188 - Alcohol abuse with other alcohol-induced disorder Plan The patient is a 78-year-old male with a past history of alcohol use disorder who was brought to the emergency room of another hospital for psychotic symptoms at the this moment currently denies. 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 09/19 patient adamant about being able to go home soon. Unaware of cognitive issues Plan continue tx. awaiting placement. Reason for continued inpatient stay Substantial Risk for: inability to function Time Spent With Patient Time: Total time managing care of this patient today ____ minutes.
[2023-10-16 16:20] LABS: MANUAL DIFF FLAG NO
[2023-10-16 16:22] LABS: Basophils Absolute Auto 0.1 X10*3/uL (0.0-0.2); Basophils Percent Auto 0.8 % (0-2); Eosinophils Absolute Auto 0.5 X10*3/uL (0.0-0.4); Eosinophils Percent Auto 6.7 % (0-4); Hematocrit 41.8 % (42.0-52.0); Imm Gran Abs Auto 0.02 X10*3/uL (0.00-0.03); Imm Gran Pct Auto 0.3 % (0.0-0.4); Lymphocytes Absolute Auto 1.3 X10*3/uL (1.2-4.9); Lymphocytes Percent Auto 18.4 % (20-40); Mean Corpuscular HGB Conc 33.5 g/dl (31.0-36.0); Mean Corpuscular Hemoglobin 31.3 pg (27.0-33.0); Mean Corpuscular Volume 93.5 fL (80.0-98.0); Mean Platelet Volume 8.4 fL (9.4-12.4); Monocytes Absolute Auto 0.6 X10*3/uL (0.1-1.2); Neutrophils Absolute Auto 4.8 x10*3/uL (2.0-8.3); Neutrophils Percent Auto 65.8 % (45-73); Platelet Count 239 X10*3/uL (160-400); Red Blood Count 4.47 X10*6/uL (4.60-5.80); Red Cell Distribution Width 13.2 % (11.0-16.0); White Blood Count 7.3 X10*3/uL (4.8-10.8)
[2023-10-16 16:38] LABS: Alanine Aminotransferase 22 U/L (0-40); Albumin Level 3.7 g/dL (3.5-5.0); Alkaline Phosphatase 73 U/L (39-117); Anion Gap 13 (12-20); Aspartate Amino Transferase 18 U/L (5-37); Bilirubin Total 0.3 mg/dL (0.0-1.0); Blood Urea Nitrogen 18 mg/dL (9-16); Calcium 9.2 mg/dL (8.4-10.2); Carbon Dioxide 26 mmol/L (22-29); Chloride 103 mmol/L (96-108); Creatinine Clr Calc Pharmacy 47.9; Estimated Glomerular Filt Rate 56; Glucose Random 222 mg/dL (60-115); Potassium 4.2 mmol/L (3.3-5.1); Sodium 138 mmol/L (135-145); Total Protein 7.9 g/dL (6.5-8.0)
[2023-10-16] MEDS: QUEtiapine Fumarate 25 MG TABLET PO (18:06)
[2023-10-16] MEDS: Donepezil HCl 10 MG TABLET PO (19:56)
[2023-10-16] MEDS: QUEtiapine Fumarate 50 MG TABLET PO (19:57)
[2023-10-16 19:58] VITALS: BP 149/67; PULSE 87; RESP 16; TEMP 36.8; O2SAT 94
[2023-10-16 21:30] LABS: Appearance Urine Clear; Color Urine Yellow; Glucose Urine UA Negative (Negative); Leukocyte Esterase Urine Small (1+) (Negative); Nitrite Urine Negative (Negative); UMIC TRIGGER UA YES; Urine Blood Negative (Negative); Urine Ketones Negative (Negative); Urine Protein Negative (Neg-Trace)
[2023-10-16 22:52] LABS: Bacteria Urine None Seen (None Seen); Hyaline Casts Urine 0-2 /LPF (0-2); RBC Urine 0-2 /HPF (0-2); Squamous Epithelial Cell Urine 0-2 /HPF (0-2); WBC Urine 0-5 /HPF (0-5)
--- NOTE | 2023-10-17 08:28 | P.PNPSI_ITS ---
Subjective Subjective Date of Service: 10/17/23 Reason For Visit: Adjustment disorder,w/mixed disturbance of emotion Subjective Notes: Conditional Voluntary Interim History: Pt slept through the night. He is pleasant on approach although same questions about when is he leaving and no one informing him of the plan. He denies SI/HI. He is attending groups, participates appropriately. No behavioral concerns. Review of Systems Review of Systems Denies today Yes all other systems are reviewed and are negative Mental Status Exam Mental Status Exam Patient Appearance: Well Grooomed Patient Orientation: Person and Situation Level of Consciousness: Awake and Appropriate Patient Behavior: Appropriate Mood Description: Calm Affect Description: Constricted Patient Cognition Impaired: Yes Ability to Follow Directions: Fair Speech Pattern: Clear Memory Description: Recent Impaired Diagnostics Vital Signs (24Hr): Vital Signs - 24 hr 10/16/23 19:58 Temperature 98.3 F Pulse Rate 87 Respiratory Rate 16 Blood Pressure 149/67 H Pulse Oximetry 94 Oxygen Delivery Method Nasal Cannula BMI result Body Mass Index 23.3 Labs 10/16/23 16:18 10/16/23 16:18 Labs: Laboratory Results - last 48 hr 10/16/23 10/16/23 16:18 21:16 WBC 7.3 RBC 4.47 L Hgb 14.0 Hct 41.8 L MCV 93.5 MCH 31.3 MCHC 33.5 RDW 13.2 Plt Count 239 MPV 8.4 L Immature Gran % (Auto) 0.3 Neut % (Auto) 65.8 Lymph % (Auto) 18.4 L [place] % (Auto) 8.0 Eos % (Auto) 6.7 H Baso % (Auto) 0.8 Lymph # (Auto) 1.3 [place] # (Auto) 0.6 Eos # (Auto) 0.5 H Baso # (Auto) 0.1 Abs Immat Gran (auto) 0.02 Absolute Neuts (auto) 4.8 Absolute Nucleated RBC 0.000 Nucleated RBC % (auto) 0.0 Sodium 138 Potassium 4.2 Chloride 103 Carbon Dioxide 26 Anion Gap 13 BUN 18 H Creatinine 1.25 Estim Creat Clear Calc 47.9 Estimated GFR 56 Random Glucose 222 H Calcium 9.2 Total Bilirubin 0.3 AST 18 ALT 22 Alkaline Phosphatase 73 Total Protein 7.9 Albumin 3.7 Urine Color Yellow Urine Appearance Clear Urine pH 7.0 Ur Specific [place] 1.020 Urine Protein Negative Urine Glucose (UA) Negative Urine Ketones Negative Urine Blood Negative Urine Nitrite Negative Ur Leukocyte Esterase Small (1+) H Urine RBC 0-2 Urine WBC 0-5 Ur Squamous Epith Cells 0-2 Urine Bacteria None Seen Hyaline Casts 0-2 Imaging Radiology Impressions: ITS Impressions Shoulder X-Ray 07/30/23 09:55 IMPRESSION: 1. No metallic foreign body. 2. Calcification adjacent to the humeral head likely on the basis of calcific tendinosis. Orbit X-Ray 07/30/23 11:07 IMPRESSION: 1. No unexpected radiopaque foreign bodies. 2. Clear lungs. 3. Nonobstructive bowel gas pattern. 4. Moderate to large degree of colonic stool burden. Brain MRI 07/30/23 20:40 IMPRESSION: No acute intracranial abnormality. No findings to suggest Wernicke encephalopathy. Hand X-Ray 08/26/23 09:05 IMPRESSION: No fracture seen. Medications Medications Current Medications Acetaminophen (Acetaminophen 325 Mg Tablet) 650 mg PO Q6H PRN PRN Reason: Headache/Pain (1-10) Last Admin: 10/12/23 05:58 Dose: 650 mg Al Hydroxide/Mg Hydroxide (Magnesium Hydrox/Alum Hydrox 30 Ml Oral.Susp) 30 ml PO Q6H PRN PRN Reason: Heartburn/Nausea Last Admin: 10/15/23 21:10 Dose: 30 ml Artificial Tears (Artificial Tears 15 Ml Drops) 1 drop EYE-BOTH Q4H PRN PRN Reason: Dry Eyes Last Admin: 10/04/23 09:24 Dose: 1 drop Benzocaine (Throat Lozenge, Medicated Lozenge) 1 lozenge MUCOUS MEM Q4H PRN PRN Reason: Sore Throat Brimonidine Tartrate (Brimonidine Tartrate 0.2% Oph 5 Ml Bottle) 1 drop EYE- BOTH TID [facility] Last Admin: 10/16/23 19:57 Dose: 1 drop Donepezil HCl (Donepezil Hcl 10 Mg Tablet) 10 mg PO BEDTIME [facility] Last Admin: 10/16/23 19:56 Dose: 10 mg Guaifenesin (Guaifenesin 200 Mg/10 Ml 10 Ml Liquid) 10 ml PO Q6H PRN PRN Reason: Cough Last Admin: 09/05/23 23:21 Dose: 10 ml Lidocaine (Lidocaine 4 % Patch Adh..Patch) 2 patch TRANSDERMA DAILY PRN; Protocol PRN Reason: bilateral low back pain Last Admin: 09/26/23 04:27 Dose: 2 patch Magnesium Hydroxide (Milk Of Magnesia 30 Ml Oral.Susp) 30 ml PO DAILY PRN PRN Reason: Constipation Last Admin: 08/23/23 08:41 Dose: 30 ml Memantine (Memantine Hcl 10 Mg Tablet) 10 mg PO BID [facility] Last Admin: 10/16/23 19:56 Dose: 10 mg Quetiapine Fumarate (Quetiapine Fumarate 25 Mg Tablet) 25 mg PO BID PRN PRN Reason: anxiety/agitation Last Admin: 10/15/23 05:42 Dose: 25 mg Quetiapine Fumarate (Quetiapine Fumarate 25 Mg Tablet) 25 mg PO DAILY@1700 [facility] Last Admin: 10/16/23 18:06 Dose: 25 mg Quetiapine Fumarate (Quetiapine Fumarate 25 Mg Tablet) 12.5 mg PO BID@0830,1330 [facility] Last Admin: 10/16/23 14:00 Dose: 12.5 mg Quetiapine Fumarate (Quetiapine Fumarate 50 Mg Tablet) 50 mg PO BEDTIME [facility] Last Admin: 10/16/23 19:57 Dose: 50 mg Sumatriptan Succinate (Sumatriptan Succinate 50 Mg Tablet) 50 mg PO DAILY MRX1 PRN PRN Reason: Migraine Headache Last Admin: 10/16/23 06:46 Dose: 50 mg Thiamine HCl (Thiamine Hcl 100 Mg Tablet) 100 mg PO DAILY [facility] Last Admin: 10/16/23 08:14 Dose: 100 mg Trazodone HCl (Trazodone Hcl 50 Mg Tablet) 50 mg PO BEDTIME MRX1 PRN PRN Reason: Insomnia Last Admin: 10/15/23 20:43 Dose: 50 mg Allergies Allergies Allergy/AdvReac Type Severity Reaction Status Date / Time Sulfa (Sulfonamide Allergy Severe ANAPHYLAXIS Verified 08/25/23 23:13 Antibiotics) [SULFA (SULFONAMIDE ANTIBIOTICS)] mold Allergy Intermediate Shortness Verified 08/25/23 22:42 of Breath Assessment & Plan Assessment & Plan (1) Alcohol abuse with alcohol-induced mental disorder: Status: Acute Code(s): F10.188 - Alcohol abuse with other alcohol-induced disorder Plan The patient is a 78-year-old male with a past history of alcohol use disorder who was brought to the emergency room of another hospital for psychotic symptoms at the this moment currently denies. 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 09/19 patient adamant about being able to go home soon. Unaware of cognitive issues Plan continue tx. awaiting placement. Reason for continued inpatient stay Substantial Risk for: inability to function Time Spent With Patient Time: Total time managing care of this patient today ____ minutes.
[2023-10-17 08:31] VITALS: BP 133/62; PULSE 85; RESP 16; TEMP 36.3; O2SAT 97
[2023-10-17] MEDS: Brimonidine Tartrate 0.2% Oph 5 ML BOTTLE 1 DROP EYE-BOTH ×3 (08:37→20:24)
[2023-10-17] MEDS: QUEtiapine Fumarate 25 MG TABLET 12.5 MG PO ×2 (08:38→13:38)
[2023-10-17] MEDS: Thiamine HCL 100 MG TABLET PO (08:39)
[2023-10-17] MEDS: Memantine HCl 10 MG TABLET PO ×2 (08:39→20:24)
[2023-10-17] MEDS: QUEtiapine Fumarate 25 MG TABLET PO (17:51)
[2023-10-17 20:00] VITALS: BP 140/73; PULSE 87; RESP 16; TEMP 36.4; O2SAT 95
[2023-10-17] MEDS: Donepezil HCl 10 MG TABLET PO (20:24)
[2023-10-17] MEDS: QUEtiapine Fumarate 50 MG TABLET PO (20:24)
[2023-10-17] MEDS: Magnesium Hydrox/Alum Hydrox 30 ML ORAL.SUSP PO (22:22)
[2023-10-18 08:32] VITALS: BP 134/73; PULSE 60; RESP 18; TEMP 36.1; O2SAT 92
[2023-10-18] MEDS: QUEtiapine Fumarate 25 MG TABLET 12.5 MG PO ×2 (09:17→13:17)
[2023-10-18] MEDS: Memantine HCl 10 MG TABLET PO ×2 (09:17→20:45)
[2023-10-18] MEDS: Thiamine HCL 100 MG TABLET PO (09:17)
[2023-10-18] MEDS: Brimonidine Tartrate 0.2% Oph 5 ML BOTTLE 1 DROP EYE-BOTH ×3 (09:18→20:48)
[2023-10-18] MEDS: QUEtiapine Fumarate 25 MG TABLET PO ×2 (16:28→23:35)
--- NOTE | 2023-10-18 17:53 | P.PNPSI_ITS ---
Subjective Subjective Date of Service: 10/18/23 Reason For Visit: Adjustment disorder,w/mixed disturbance of emotion Interim History: Met with patient; discussed with team No change in presentation. Pleasant on approach. Just asked about discharge. Mental Status Exam Mental Status Exam Patient Appearance: Well Grooomed Patient Orientation: Person and Situation Level of Consciousness: Awake and Appropriate Patient Behavior: Appropriate Mood Description: Calm Affect Description: Constricted Patient Cognition Impaired: Yes Ability to Follow Directions: Fair Speech Pattern: Clear Memory Description: Recent Impaired Diagnostics Vital Signs (24Hr): Vital Signs - 24 hr 10/17/23 20:00 10/18/23 08:32 Temperature 97.5 F 96.9 F Pulse Rate 87 60 Respiratory Rate 16 18 Blood Pressure 140/73 H 134/73 Pulse Oximetry 95 92 Oxygen Delivery Method Room Air Room Air BMI result Body Mass Index 23.3 Labs 10/16/23 16:18 10/16/23 16:18 Labs: Laboratory Results - last 48 hr 10/16/23 21:16 Urine Color Yellow Urine Appearance Clear Urine pH 7.0 Ur Specific [place] 1.020 Urine Protein Negative Urine Glucose (UA) Negative Urine Ketones Negative Urine Blood Negative Urine Nitrite Negative Ur Leukocyte Esterase Small (1+) H Urine RBC 0-2 Urine WBC 0-5 Ur Squamous Epith Cells 0-2 Urine Bacteria None Seen Hyaline Casts 0-2 Imaging Radiology Impressions: ITS Impressions Shoulder X-Ray 07/30/23 09:55 IMPRESSION: 1. No metallic foreign body. 2. Calcification adjacent to the humeral head likely on the basis of calcific tendinosis. Orbit X-Ray 07/30/23 11:07 IMPRESSION: 1. No unexpected radiopaque foreign bodies. 2. Clear lungs. 3. Nonobstructive bowel gas pattern. 4. Moderate to large degree of colonic stool burden. Brain MRI 07/30/23 20:40 IMPRESSION: No acute intracranial abnormality. No findings to suggest Wernicke encephalopathy. Hand X-Ray 08/26/23 09:05 IMPRESSION: No fracture seen. Medications Medications Current Medications Acetaminophen (Acetaminophen 325 Mg Tablet) 650 mg PO Q6H PRN PRN Reason: Headache/Pain (1-10) Last Admin: 10/12/23 05:58 Dose: 650 mg Al Hydroxide/Mg Hydroxide (Magnesium Hydrox/Alum Hydrox 30 Ml Oral.Susp) 30 ml PO Q6H PRN PRN Reason: Heartburn/Nausea Last Admin: 10/17/23 22:22 Dose: 30 ml Artificial Tears (Artificial Tears 15 Ml Drops) 1 drop EYE-BOTH Q4H PRN PRN Reason: Dry Eyes Last Admin: 10/04/23 09:24 Dose: 1 drop Benzocaine (Throat Lozenge, Medicated Lozenge) 1 lozenge MUCOUS MEM Q4H PRN PRN Reason: Sore Throat Brimonidine Tartrate (Brimonidine Tartrate 0.2% Oph 5 Ml Bottle) 1 drop EYE- BOTH TID [facility] Last Admin: 10/18/23 14:27 Dose: 1 drop Donepezil HCl (Donepezil Hcl 10 Mg Tablet) 10 mg PO BEDTIME [facility] Last Admin: 10/17/23 20:24 Dose: 10 mg Guaifenesin (Guaifenesin 200 Mg/10 Ml 10 Ml Liquid) 10 ml PO Q6H PRN PRN Reason: Cough Last Admin: 09/05/23 23:21 Dose: 10 ml Lidocaine (Lidocaine 4 % Patch Adh..Patch) 2 patch TRANSDERMA DAILY PRN; Protocol PRN Reason: bilateral low back pain Last Admin: 09/26/23 04:27 Dose: 2 patch Magnesium Hydroxide (Milk Of Magnesia 30 Ml Oral.Susp) 30 ml PO DAILY PRN PRN Reason: Constipation Last Admin: 08/23/23 08:41 Dose: 30 ml Memantine (Memantine Hcl 10 Mg Tablet) 10 mg PO BID [facility] Last Admin: 10/18/23 09:17 Dose: 10 mg Quetiapine Fumarate (Quetiapine Fumarate 25 Mg Tablet) 25 mg PO BID PRN PRN Reason: anxiety/agitation Last Admin: 10/15/23 05:42 Dose: 25 mg Quetiapine Fumarate (Quetiapine Fumarate 25 Mg Tablet) 25 mg PO DAILY@1700 [facility] Last Admin: 10/18/23 16:28 Dose: 25 mg Quetiapine Fumarate (Quetiapine Fumarate 25 Mg Tablet) 12.5 mg PO BID@0830,1330 [facility] Last Admin: 10/18/23 13:17 Dose: 12.5 mg Quetiapine Fumarate (Quetiapine Fumarate 50 Mg Tablet) 50 mg PO BEDTIME [facility] Last Admin: 10/17/23 20:24 Dose: 50 mg Sumatriptan Succinate (Sumatriptan Succinate 50 Mg Tablet) 50 mg PO DAILY MRX1 PRN PRN Reason: Migraine Headache Last Admin: 10/16/23 06:46 Dose: 50 mg Thiamine HCl (Thiamine Hcl 100 Mg Tablet) 100 mg PO DAILY [facility] Last Admin: 10/18/23 09:17 Dose: 100 mg Trazodone HCl (Trazodone Hcl 50 Mg Tablet) 50 mg PO BEDTIME MRX1 PRN PRN Reason: Insomnia Last Admin: 10/15/23 20:43 Dose: 50 mg Allergies Allergies Allergy/AdvReac Type Severity Reaction Status Date / Time Sulfa (Sulfonamide Allergy Severe ANAPHYLAXIS Verified 08/25/23 23:13 Antibiotics) [SULFA (SULFONAMIDE ANTIBIOTICS)] mold Allergy Intermediate Shortness Verified 08/25/23 22:42 of Breath Assessment & Plan Assessment & Plan (1) Alcohol abuse with alcohol-induced mental disorder: Status: Acute Code(s): F10.188 - Alcohol abuse with other alcohol-induced disorder Plan The patient is a 78-year-old male with a past history of alcohol use disorder who was brought to the emergency room of another hospital for psychotic symptoms at the this moment currently denies. 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 09/19 patient adamant about being able to go home soon. Unaware of cognitive issues Plan continue tx. awaiting placement. Reason for continued inpatient stay Substantial Risk for: other (Dispo planning) Time Spent With Patient Time: Total time managing care of this patient today ____ minutes.
[2023-10-18 20:00] VITALS: BP 144/73; PULSE 72; RESP 17; TEMP 36.7; O2SAT 98
[2023-10-18] MEDS: QUEtiapine Fumarate 50 MG TABLET PO (20:45)
[2023-10-18] MEDS: Donepezil HCl 10 MG TABLET PO (20:46)
[2023-10-18] MEDS: traZODone HCL 50 MG TABLET PO (23:33)
[2023-10-19] MEDS: Thiamine HCL 100 MG TABLET PO (09:12)
[2023-10-19] MEDS: Memantine HCl 10 MG TABLET PO ×2 (09:12→20:17)
[2023-10-19] MEDS: QUEtiapine Fumarate 25 MG TABLET 12.5 MG PO ×2 (09:12→14:35)
[2023-10-19] MEDS: Brimonidine Tartrate 0.2% Oph 5 ML BOTTLE 1 DROP EYE-BOTH ×3 (09:13→20:17)
[2023-10-19] MEDS: QUEtiapine Fumarate 25 MG TABLET PO (16:51)
--- NOTE | 2023-10-19 18:36 | HO.PSYCHPN ---
Subjective Subjective Date of Service: 10/19/23 Reason For Visit: Adjustment disorder,w/mixed disturbance of emotion Interim History: Met with patient; discussed with team Same presentation. Sitting calmly, pleasant on approach, read in a book. Says he is fine Mental Status Exam Mental Status Exam Patient Appearance: Well Grooomed Patient Orientation: Person and Situation Level of Consciousness: Awake and Appropriate Patient Behavior: Appropriate Mood Description: Calm Affect Description: Constricted Patient Cognition Impaired: Yes Ability to Follow Directions: Fair Speech Pattern: Clear Memory Description: Recent Impaired Diagnostics Vital Signs (24Hr): Vital Signs - 24 hr 10/18/23 20:00 10/19/23 09:10 Temperature 98.0 F Pulse Rate 72 Respiratory Rate 17 Blood Pressure 144/73 H Pulse Oximetry 98 Oxygen Delivery Method Room Air Room Air BMI result Body Mass Index 23.3 Labs 10/16/23 16:18 10/16/23 16:18 Imaging Radiology Impressions: ITS Impressions Shoulder X-Ray 07/30/23 09:55 IMPRESSION: 1. No metallic foreign body. 2. Calcification adjacent to the humeral head likely on the basis of calcific tendinosis. Orbit X-Ray 07/30/23 11:07 IMPRESSION: 1. No unexpected radiopaque foreign bodies. 2. Clear lungs. 3. Nonobstructive bowel gas pattern. 4. Moderate to large degree of colonic stool burden. Brain MRI 07/30/23 20:40 IMPRESSION: No acute intracranial abnormality. No findings to suggest Wernicke encephalopathy. Hand X-Ray 08/26/23 09:05 IMPRESSION: No fracture seen. Medications Medications Current Medications Acetaminophen (Acetaminophen 325 Mg Tablet) 650 mg PO Q6H PRN PRN Reason: Headache/Pain (1-10) Last Admin: 10/12/23 05:58 Dose: 650 mg Al Hydroxide/Mg Hydroxide (Magnesium Hydrox/Alum Hydrox 30 Ml Oral.Susp) 30 ml PO Q6H PRN PRN Reason: Heartburn/Nausea Last Admin: 10/17/23 22:22 Dose: 30 ml Artificial Tears (Artificial Tears 15 Ml Drops) 1 drop EYE-BOTH Q4H PRN PRN Reason: Dry Eyes Last Admin: 10/04/23 09:24 Dose: 1 drop Benzocaine (Throat Lozenge, Medicated Lozenge) 1 lozenge MUCOUS MEM Q4H PRN PRN Reason: Sore Throat Brimonidine Tartrate (Brimonidine Tartrate 0.2% Oph 5 Ml Bottle) 1 drop EYE-BOTH TID [facility] Last Admin: 10/19/23 16:51 Dose: 1 drop Donepezil HCl (Donepezil Hcl 10 Mg Tablet) 10 mg PO BEDTIME [facility] Last Admin: 10/18/23 20:46 Dose: 10 mg Guaifenesin (Guaifenesin 200 Mg/10 Ml 10 Ml Liquid) 10 ml PO Q6H PRN PRN Reason: Cough Last Admin: 09/05/23 23:21 Dose: 10 ml Lidocaine (Lidocaine 4 % Patch Adh..Patch) 2 patch TRANSDERMA DAILY PRN; Protocol PRN Reason: bilateral low back pain Last Admin: 09/26/23 04:27 Dose: 2 patch Magnesium Hydroxide (Milk Of Magnesia 30 Ml Oral.Susp) 30 ml PO DAILY PRN PRN Reason: Constipation Last Admin: 08/23/23 08:41 Dose: 30 ml Memantine (Memantine Hcl 10 Mg Tablet) 10 mg PO BID [facility] Last Admin: 10/19/23 09:12 Dose: 10 mg Quetiapine Fumarate (Quetiapine Fumarate 25 Mg Tablet) 25 mg PO BID PRN PRN Reason: anxiety/agitation Last Admin: 10/18/23 23:35 Dose: 25 mg Quetiapine Fumarate (Quetiapine Fumarate 25 Mg Tablet) 25 mg PO DAILY@1700 [facility] Last Admin: 10/19/23 16:51 Dose: 25 mg Quetiapine Fumarate (Quetiapine Fumarate 25 Mg Tablet) 12.5 mg PO BID@0830,1330 [facility] Last Admin: 10/19/23 14:35 Dose: 12.5 mg Quetiapine Fumarate (Quetiapine Fumarate 50 Mg Tablet) 50 mg PO BEDTIME [facility] Last Admin: 10/18/23 20:45 Dose: 50 mg Sumatriptan Succinate (Sumatriptan Succinate 50 Mg Tablet) 50 mg PO DAILY MRX1 PRN PRN Reason: Migraine Headache Last Admin: 10/16/23 06:46 Dose: 50 mg Thiamine HCl (Thiamine Hcl 100 Mg Tablet) 100 mg PO DAILY [facility] Last Admin: 10/19/23 09:12 Dose: 100 mg Trazodone HCl (Trazodone Hcl 50 Mg Tablet) 50 mg PO BEDTIME MRX1 PRN PRN Reason: Insomnia Last Admin: 10/18/23 23:33 Dose: 50 mg Allergies Allergies Allergy/AdvReac Type Severity Reaction Status Date / Time Sulfa (Sulfonamide Allergy Severe ANAPHYLAXIS Verified 08/25/23 23:13 Antibiotics) [SULFA (SULFONAMIDE ANTIBIOTICS)] mold Allergy Intermediate Shortness Verified 08/25/23 22:42 of Breath Assessment & Plan Assessment & Plan (1) Alcohol abuse with alcohol-induced mental disorder: Status: Acute Code(s): F10.188 - Alcohol abuse with other alcohol-induced disorder Plan The patient is a 78-year-old male with a past history of alcohol use disorder who was brought to the emergency room of another hospital for psychotic symptoms at the this moment currently denies. 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 09/19 patient adamant about being able to go home soon. Unaware of cognitive issues Plan continue tx. awaiting placement. Reason for continued inpatient stay Substantial Risk for: inability to function and other (Dispo planning) Time Spent With Patient Time: Total time managing care of this patient today ____ minutes.
[2023-10-19] MEDS: QUEtiapine Fumarate 50 MG TABLET PO (20:17)
[2023-10-19] MEDS: Donepezil HCl 10 MG TABLET PO (20:17)
[2023-10-19 20:35] VITALS: BP 108/57; PULSE 67; RESP 16; TEMP 36.7; O2SAT 96
[2023-10-20 08:30] VITALS: BP 98/60; PULSE 71; RESP 17; TEMP 36.2; O2SAT 96
[2023-10-20] MEDS: QUEtiapine Fumarate 25 MG TABLET 12.5 MG PO ×2 (08:32→14:27)
[2023-10-20] MEDS: Thiamine HCL 100 MG TABLET PO (08:32)
[2023-10-20] MEDS: Memantine HCl 10 MG TABLET PO ×2 (08:32→21:43)
[2023-10-20] MEDS: Brimonidine Tartrate 0.2% Oph 5 ML BOTTLE 1 DROP EYE-BOTH ×3 (08:33→21:42)
--- NOTE | 2023-10-20 14:47 | P.PNPSI_ITS ---
Subjective Subjective Date of Service: 10/20/23 Reason For Visit: Adjustment disorder,w/mixed disturbance of emotion Subjective Notes: Conditional Voluntary Interim History: The nursing staff reported no changes in his mental status. He was more confused most likely due to UTI a few days ago. On interview the patient denies new symptoms, waiting for placement. Mental Status Exam Mental Status Exam Patient Appearance: Appropriate Patient Orientation: Person and Situation Level of Consciousness: Awake and Appropriate Patient Behavior: Guarded and Passive Mood Description: Withdrawn Affect Description: Constricted Patient Cognition Impaired: Yes Ability to Follow Directions: Good Speech Pattern: Clear Hallucinations: None Delusions: Not Present Thought Process: Distracted and Slowed Thinking Thought Content: positive for [place] and positive for Poverty of Content Judgement: Poor Diagnostics Vital Signs (24Hr): Vital Signs - 24 hr 10/19/23 20:35 10/20/23 08:30 Temperature 98.1 F 97.1 F Pulse Rate 67 71 Respiratory Rate 16 17 Blood Pressure 108/57 L 98/60 Pulse Oximetry 96 96 Oxygen Delivery Method Room Air Room Air BMI result Body Mass Index 23.3 Labs 10/16/23 16:18 10/16/23 16:18 Imaging Radiology Impressions: ITS Impressions Shoulder X-Ray 07/30/23 09:55 IMPRESSION: 1. No metallic foreign body. 2. Calcification adjacent to the humeral head likely on the basis of calcific tendinosis. Orbit X-Ray 07/30/23 11:07 IMPRESSION: 1. No unexpected radiopaque foreign bodies. 2. Clear lungs. 3. Nonobstructive bowel gas pattern. 4. Moderate to large degree of colonic stool burden. Brain MRI 07/30/23 20:40 IMPRESSION: No acute intracranial abnormality. No findings to suggest Wernicke encephalopathy. Hand X-Ray 08/26/23 09:05 IMPRESSION: No fracture seen. Medications Medications Current Medications Acetaminophen (Acetaminophen 325 Mg Tablet) 650 mg PO Q6H PRN PRN Reason: Headache/Pain (1-10) Last Admin: 10/12/23 05:58 Dose: 650 mg Al Hydroxide/Mg Hydroxide (Magnesium Hydrox/Alum Hydrox 30 Ml Oral.Susp) 30 ml PO Q6H PRN PRN Reason: Heartburn/Nausea Last Admin: 10/17/23 22:22 Dose: 30 ml Artificial Tears (Artificial Tears 15 Ml Drops) 1 drop EYE-BOTH Q4H PRN PRN Reason: Dry Eyes Last Admin: 10/04/23 09:24 Dose: 1 drop Benzocaine (Throat Lozenge, Medicated Lozenge) 1 lozenge MUCOUS MEM Q4H PRN PRN Reason: Sore Throat Brimonidine Tartrate (Brimonidine Tartrate 0.2% Oph 5 Ml Bottle) 1 drop EYE- BOTH TID [facility] Last Admin: 10/20/23 14:27 Dose: 1 drop Donepezil HCl (Donepezil Hcl 10 Mg Tablet) 10 mg PO BEDTIME [facility] Last Admin: 10/19/23 20:17 Dose: 10 mg Guaifenesin (Guaifenesin 200 Mg/10 Ml 10 Ml Liquid) 10 ml PO Q6H PRN PRN Reason: Cough Last Admin: 09/05/23 23:21 Dose: 10 ml Lidocaine (Lidocaine 4 % Patch Adh..Patch) 2 patch TRANSDERMA DAILY PRN; Protocol PRN Reason: bilateral low back pain Last Admin: 09/26/23 04:27 Dose: 2 patch Magnesium Hydroxide (Milk Of Magnesia 30 Ml Oral.Susp) 30 ml PO DAILY PRN PRN Reason: Constipation Last Admin: 08/23/23 08:41 Dose: 30 ml Memantine (Memantine Hcl 10 Mg Tablet) 10 mg PO BID [facility] Last Admin: 10/20/23 08:32 Dose: 10 mg Quetiapine Fumarate (Quetiapine Fumarate 25 Mg Tablet) 25 mg PO BID PRN PRN Reason: anxiety/agitation Last Admin: 10/18/23 23:35 Dose: 25 mg Quetiapine Fumarate (Quetiapine Fumarate 25 Mg Tablet) 25 mg PO DAILY@1700 [facility] Last Admin: 10/19/23 16:51 Dose: 25 mg Quetiapine Fumarate (Quetiapine Fumarate 25 Mg Tablet) 12.5 mg PO BID@0830,1330 [facility] Last Admin: 10/20/23 14:27 Dose: 12.5 mg Quetiapine Fumarate (Quetiapine Fumarate 50 Mg Tablet) 50 mg PO BEDTIME [facility] Last Admin: 10/19/23 20:17 Dose: 50 mg Sumatriptan Succinate (Sumatriptan Succinate 50 Mg Tablet) 50 mg PO DAILY MRX1 PRN PRN Reason: Migraine Headache Last Admin: 10/16/23 06:46 Dose: 50 mg Thiamine HCl (Thiamine Hcl 100 Mg Tablet) 100 mg PO DAILY [facility] Last Admin: 10/20/23 08:32 Dose: 100 mg Trazodone HCl (Trazodone Hcl 50 Mg Tablet) 50 mg PO BEDTIME MRX1 PRN PRN Reason: Insomnia Last Admin: 10/18/23 23:33 Dose: 50 mg Allergies Allergies Allergy/AdvReac Type Severity Reaction Status Date / Time Sulfa (Sulfonamide Allergy Severe ANAPHYLAXIS Verified 08/25/23 23:13 Antibiotics) [SULFA (SULFONAMIDE ANTIBIOTICS)] mold Allergy Intermediate Shortness Verified 08/25/23 22:42 of Breath Assessment & Plan Assessment & Plan (1) Alcohol abuse with alcohol-induced mental disorder: Status: Acute Code(s): F10.188 - Alcohol abuse with other alcohol-induced disorder Plan The patient is a 78-year-old male with a past history of alcohol use disorder who was brought to the emergency room of another hospital for psychotic symptoms at the this moment currently denies. 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 09/19 patient adamant about being able to go home soon. Unaware of cognitive issues Plan continue tx. awaiting placement. Reason for continued inpatient stay Substantial Risk for: inability to function, rapid decompensation and med/psych decompensation Time Spent With Patient Time: Total time managing care of this patient today __20__ minutes.
[2023-10-20] MEDS: QUEtiapine Fumarate 25 MG TABLET PO (17:10)
[2023-10-20 20:00] VITALS: BP 154/75; PULSE 79; RESP 18; TEMP 36.6; O2SAT 97
[2023-10-20] MEDS: QUEtiapine Fumarate 50 MG TABLET PO (21:42)
[2023-10-20] MEDS: traZODone HCL 50 MG TABLET PO (21:42)
[2023-10-20] MEDS: Donepezil HCl 10 MG TABLET PO (21:42)
[2023-10-21 09:23] VITALS: BP 119/67; PULSE 86; RESP 18; TEMP 36.2; O2SAT 94
[2023-10-21] MEDS: Memantine HCl 10 MG TABLET PO ×2 (09:26→20:35)
[2023-10-21] MEDS: Brimonidine Tartrate 0.2% Oph 5 ML BOTTLE 1 DROP EYE-BOTH ×3 (09:26→20:35)
[2023-10-21] MEDS: QUEtiapine Fumarate 25 MG TABLET 12.5 MG PO ×2 (09:26→14:12)
[2023-10-21] MEDS: Thiamine HCL 100 MG TABLET PO (09:27)
--- NOTE | 2023-10-21 16:36 | P.PNPSI_ITS ---
Subjective Subjective Date of Service: 10/21/23 Reason For Visit: Adjustment disorder,w/mixed disturbance of emotion Subjective Notes: Section 7 and Section 8 Interim History: Patient reports no changes in his mental status, waiting for placement. The nursing staff reported that he had been sarcastic as usual Mental Status Exam Mental Status Exam Patient Appearance: Appropriate Patient Orientation: Person and Situation Level of Consciousness: Awake Patient Behavior: Guarded and Passive Mood Description: Withdrawn Affect Description: Constricted Patient Cognition Impaired: Yes Ability to Follow Directions: Good Speech Pattern: Clear Hallucinations: None Delusions: Ideas of Reference Thought Process: Distracted and Slowed Thinking Thought Content: positive for [place] and positive for Poverty of Content Judgement: Fair Diagnostics Vital Signs (24Hr): Vital Signs - 24 hr 10/20/23 20:00 10/21/23 09:23 Temperature 98 F 97.1 F Pulse Rate 79 86 Respiratory Rate 18 18 Blood Pressure 154/75 H 119/67 Pulse Oximetry 97 94 Oxygen Delivery Method Room Air Room Air BMI result Body Mass Index 23.3 Labs 10/16/23 16:18 10/16/23 16:18 Imaging Radiology Impressions: ITS Impressions Shoulder X-Ray 07/30/23 09:55 IMPRESSION: 1. No metallic foreign body. 2. Calcification adjacent to the humeral head likely on the basis of calcific tendinosis. Orbit X-Ray 07/30/23 11:07 IMPRESSION: 1. No unexpected radiopaque foreign bodies. 2. Clear lungs. 3. Nonobstructive bowel gas pattern. 4. Moderate to large degree of colonic stool burden. Brain MRI 07/30/23 20:40 IMPRESSION: No acute intracranial abnormality. No findings to suggest Wernicke encephalopathy. Hand X-Ray 08/26/23 09:05 IMPRESSION: No fracture seen. Medications Medications Current Medications Acetaminophen (Acetaminophen 325 Mg Tablet) 650 mg PO Q6H PRN PRN Reason: Headache/Pain (1-10) Last Admin: 10/12/23 05:58 Dose: 650 mg Al Hydroxide/Mg Hydroxide (Magnesium Hydrox/Alum Hydrox 30 Ml Oral.Susp) 30 ml PO Q6H PRN PRN Reason: Heartburn/Nausea Last Admin: 10/17/23 22:22 Dose: 30 ml Artificial Tears (Artificial Tears 15 Ml Drops) 1 drop EYE-BOTH Q4H PRN PRN Reason: Dry Eyes Last Admin: 10/04/23 09:24 Dose: 1 drop Benzocaine (Throat Lozenge, Medicated Lozenge) 1 lozenge MUCOUS MEM Q4H PRN PRN Reason: Sore Throat Brimonidine Tartrate (Brimonidine Tartrate 0.2% Oph 5 Ml Bottle) 1 drop EYE- BOTH TID [facility] Last Admin: 10/21/23 14:56 Dose: 1 drop Donepezil HCl (Donepezil Hcl 10 Mg Tablet) 10 mg PO BEDTIME [facility] Last Admin: 10/20/23 21:42 Dose: 10 mg Guaifenesin (Guaifenesin 200 Mg/10 Ml 10 Ml Liquid) 10 ml PO Q6H PRN PRN Reason: Cough Last Admin: 09/05/23 23:21 Dose: 10 ml Lidocaine (Lidocaine 4 % Patch Adh..Patch) 2 patch TRANSDERMA DAILY PRN; Protocol PRN Reason: bilateral low back pain Last Admin: 09/26/23 04:27 Dose: 2 patch Magnesium Hydroxide (Milk Of Magnesia 30 Ml Oral.Susp) 30 ml PO DAILY PRN PRN Reason: Constipation Last Admin: 08/23/23 08:41 Dose: 30 ml Memantine (Memantine Hcl 10 Mg Tablet) 10 mg PO BID [facility] Last Admin: 10/21/23 09:26 Dose: 10 mg Quetiapine Fumarate (Quetiapine Fumarate 25 Mg Tablet) 25 mg PO BID PRN PRN Reason: anxiety/agitation Last Admin: 10/18/23 23:35 Dose: 25 mg Quetiapine Fumarate (Quetiapine Fumarate 25 Mg Tablet) 25 mg PO DAILY@1700 [facility] Last Admin: 10/20/23 17:10 Dose: 25 mg Quetiapine Fumarate (Quetiapine Fumarate 25 Mg Tablet) 12.5 mg PO BID@0830,1330 [facility] Last Admin: 10/21/23 14:12 Dose: 12.5 mg Quetiapine Fumarate (Quetiapine Fumarate 50 Mg Tablet) 50 mg PO BEDTIME [facility] Last Admin: 10/20/23 21:42 Dose: 50 mg Sumatriptan Succinate (Sumatriptan Succinate 50 Mg Tablet) 50 mg PO DAILY MRX1 PRN PRN Reason: Migraine Headache Last Admin: 10/16/23 06:46 Dose: 50 mg Thiamine HCl (Thiamine Hcl 100 Mg Tablet) 100 mg PO DAILY [facility] Last Admin: 10/21/23 09:27 Dose: 100 mg Trazodone HCl (Trazodone Hcl 50 Mg Tablet) 50 mg PO BEDTIME MRX1 PRN PRN Reason: Insomnia Last Admin: 10/20/23 21:42 Dose: 50 mg Allergies Allergies Allergy/AdvReac Type Severity Reaction Status Date / Time Sulfa (Sulfonamide Allergy Severe ANAPHYLAXIS Verified 08/25/23 23:13 Antibiotics) [SULFA (SULFONAMIDE ANTIBIOTICS)] mold Allergy Intermediate Shortness Verified 08/25/23 22:42 of Breath Assessment & Plan Assessment & Plan (1) Alcohol abuse with alcohol-induced mental disorder: Status: Acute Code(s): F10.188 - Alcohol abuse with other alcohol-induced disorder Plan The patient is a 78-year-old male with a past history of alcohol use disorder who was brought to the emergency room of another hospital for psychotic symptoms at the this moment currently denies. 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 09/19 patient adamant about being able to go home soon. Unaware of cognitive issues Plan continue tx. awaiting placement. Reason for continued inpatient stay Substantial Risk for: inability to function, rapid decompensation and med/psych decompensation Time Spent With Patient Time: Total time managing care of this patient today _20___ minutes.
[2023-10-21] MEDS: QUEtiapine Fumarate 25 MG TABLET PO (17:04)
[2023-10-21 20:00] VITALS: BP 146/66; PULSE 80; RESP 18; TEMP 36.6; O2SAT 97
[2023-10-21] MEDS: Donepezil HCl 10 MG TABLET PO (20:35)
[2023-10-21] MEDS: QUEtiapine Fumarate 50 MG TABLET PO (20:35)
[2023-10-21] MEDS: traZODone HCL 50 MG TABLET PO (20:35)
[2023-10-22 09:34] VITALS: BP 130/68; PULSE 72; RESP 15; TEMP 36.2; O2SAT 96
[2023-10-22] MEDS: Brimonidine Tartrate 0.2% Oph 5 ML BOTTLE 1 DROP EYE-BOTH ×3 (09:35→20:30)
[2023-10-22] MEDS: Memantine HCl 10 MG TABLET PO ×2 (09:36→20:30)
[2023-10-22] MEDS: Thiamine HCL 100 MG TABLET PO (09:36)
[2023-10-22] MEDS: QUEtiapine Fumarate 25 MG TABLET 12.5 MG PO ×2 (09:36→14:08)
--- NOTE | 2023-10-22 14:10 | HO.PSYCHPN ---
Subjective Subjective Date of Service: 10/29/23 Reason For Visit: Adjustment disorder,w/mixed disturbance of emotion Subjective Notes: Conditional Voluntary Interim History: The nursing staff reported no changes in his mental status. The social human services assistants called the son and trying to get were financial information for the clearance and transferred to halfway facility. On interview the patient reports that he does not want to go to halfway facility. Mental Status Exam Mental Status Exam Patient Appearance: Appropriate Patient Orientation: Person and Situation Level of Consciousness: Awake and Appropriate Patient Behavior: Guarded and Passive Mood Description: Withdrawn Affect Description: Constricted Patient Cognition Impaired: Yes Ability to Follow Directions: Good Speech Pattern: Clear Hallucinations: None Delusions: Ideas of Reference Thought Process: Distracted and Evasive Thought Content: positive for [place] and positive for Poverty of Content Judgement: Poor Diagnostics Vital Signs (24Hr): Vital Signs - 24 hr 10/21/23 20:00 10/22/23 09:34 Temperature 97.8 F 97.1 F Pulse Rate 80 72 Respiratory Rate 18 15 Blood Pressure 146/66 H 130/68 Pulse Oximetry 97 96 Oxygen Delivery Method Room Air Room Air BMI result Body Mass Index 23.3 Labs 10/16/23 16:18 10/16/23 16:18 Imaging Radiology Impressions: ITS Impressions Shoulder X-Ray 07/30/23 09:55 IMPRESSION: 1. No metallic foreign body. 2. Calcification adjacent to the humeral head likely on the basis of calcific tendinosis. Orbit X-Ray 07/30/23 11:07 IMPRESSION: 1. No unexpected radiopaque foreign bodies. 2. Clear lungs. 3. Nonobstructive bowel gas pattern. 4. Moderate to large degree of colonic stool burden. Brain MRI 07/30/23 20:40 IMPRESSION: No acute intracranial abnormality. No findings to suggest Wernicke encephalopathy. Hand X-Ray 08/26/23 09:05 IMPRESSION: No fracture seen. Medications Medications Current Medications Acetaminophen (Acetaminophen 325 Mg Tablet) 650 mg PO Q6H PRN PRN Reason: Headache/Pain (1-10) Last Admin: 10/12/23 05:58 Dose: 650 mg Al Hydroxide/Mg Hydroxide (Magnesium Hydrox/Alum Hydrox 30 Ml Oral.Susp) 30 ml PO Q6H PRN PRN Reason: Heartburn/Nausea Last Admin: 10/17/23 22:22 Dose: 30 ml Artificial Tears (Artificial Tears 15 Ml Drops) 1 drop EYE-BOTH Q4H PRN PRN Reason: Dry Eyes Last Admin: 10/04/23 09:24 Dose: 1 drop Benzocaine (Throat Lozenge, Medicated Lozenge) 1 lozenge MUCOUS MEM Q4H PRN PRN Reason: Sore Throat Brimonidine Tartrate (Brimonidine Tartrate 0.2% Oph 5 Ml Bottle) 1 drop EYE-BOTH TID [facility] Last Admin: 10/22/23 14:08 Dose: 1 drop Donepezil HCl (Donepezil Hcl 10 Mg Tablet) 10 mg PO BEDTIME [facility] Last Admin: 10/21/23 20:35 Dose: 10 mg Guaifenesin (Guaifenesin 200 Mg/10 Ml 10 Ml Liquid) 10 ml PO Q6H PRN PRN Reason: Cough Last Admin: 09/05/23 23:21 Dose: 10 ml Lidocaine (Lidocaine 4 % Patch Adh..Patch) 2 patch TRANSDERMA DAILY PRN; Protocol PRN Reason: bilateral low back pain Last Admin: 09/26/23 04:27 Dose: 2 patch Magnesium Hydroxide (Milk Of Magnesia 30 Ml Oral.Susp) 30 ml PO DAILY PRN PRN Reason: Constipation Last Admin: 08/23/23 08:41 Dose: 30 ml Memantine (Memantine Hcl 10 Mg Tablet) 10 mg PO BID [facility] Last Admin: 10/22/23 09:36 Dose: 10 mg Quetiapine Fumarate (Quetiapine Fumarate 25 Mg Tablet) 25 mg PO BID PRN PRN Reason: anxiety/agitation Last Admin: 10/18/23 23:35 Dose: 25 mg Quetiapine Fumarate (Quetiapine Fumarate 25 Mg Tablet) 25 mg PO DAILY@1700 [facility] Last Admin: 10/21/23 17:04 Dose: 25 mg Quetiapine Fumarate (Quetiapine Fumarate 25 Mg Tablet) 12.5 mg PO BID@0830,1330 [facility] Last Admin: 10/22/23 14:08 Dose: 12.5 mg Quetiapine Fumarate (Quetiapine Fumarate 50 Mg Tablet) 50 mg PO BEDTIME [facility] Last Admin: 10/21/23 20:35 Dose: 50 mg Sumatriptan Succinate (Sumatriptan Succinate 50 Mg Tablet) 50 mg PO DAILY MRX1 PRN PRN Reason: Migraine Headache Last Admin: 10/16/23 06:46 Dose: 50 mg Thiamine HCl (Thiamine Hcl 100 Mg Tablet) 100 mg PO DAILY [facility] Last Admin: 10/22/23 09:36 Dose: 100 mg Trazodone HCl (Trazodone Hcl 50 Mg Tablet) 50 mg PO BEDTIME MRX1 PRN PRN Reason: Insomnia Last Admin: 10/21/23 20:35 Dose: 50 mg Allergies Allergies Allergy/AdvReac Type Severity Reaction Status Date / Time Sulfa (Sulfonamide Allergy Severe ANAPHYLAXIS Verified 08/25/23 23:13 Antibiotics) [SULFA (SULFONAMIDE ANTIBIOTICS)] mold Allergy Intermediate Shortness Verified 08/25/23 22:42 of Breath Assessment & Plan Assessment & Plan (1) Alcohol abuse with alcohol-induced mental disorder: Status: Acute Code(s): F10.188 - Alcohol abuse with other alcohol-induced disorder Plan The patient is a 78-year-old male with a past history of alcohol use disorder who was brought to the emergency room of another hospital for psychotic symptoms at the this moment currently denies. 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 09/19 patient adamant about being able to go home soon. Unaware of cognitive issues Plan continue tx. awaiting placement. Reason for continued inpatient stay Substantial Risk for: inability to function, rapid decompensation and med/psych decompensation Time Spent With Patient Time: Total time managing care of this patient today __20__ minutes.
[2023-10-22] MEDS: QUEtiapine Fumarate 25 MG TABLET PO ×2 (17:20→22:20)
[2023-10-22 20:00] VITALS: BP 140/69; PULSE 70; RESP 18; TEMP 36.8; O2SAT 94
[2023-10-22] MEDS: traZODone HCL 50 MG TABLET PO ×2 (20:29→22:20)
[2023-10-22] MEDS: Donepezil HCl 10 MG TABLET PO (20:29)
[2023-10-22] MEDS: QUEtiapine Fumarate 50 MG TABLET PO (20:30)
[2023-10-23 07:00] VITALS: BMI 23.5
[2023-10-23 08:54] VITALS: BP 137/73; PULSE 103; RESP 17; TEMP 36.3; O2SAT 95
[2023-10-23] MEDS: Thiamine HCL 100 MG TABLET PO (08:55)
[2023-10-23] MEDS: Memantine HCl 10 MG TABLET PO ×2 (08:55→20:47)
[2023-10-23] MEDS: QUEtiapine Fumarate 25 MG TABLET 12.5 MG PO ×2 (08:55→14:25)
[2023-10-23] MEDS: Brimonidine Tartrate 0.2% Oph 5 ML BOTTLE 1 DROP EYE-BOTH ×3 (08:56→20:45)
--- NOTE | 2023-10-23 15:00 | P.PNPSI_ITS ---
Subjective Subjective Date of Service: 10/23/23 Reason For Visit: Adjustment disorder,w/mixed disturbance of emotion Interim History: calm, cooperative. asking about when he will be able to discharge from the hospital. referred to speak with his primary team. per staff, depressed. no change in presentation. looking for keys, truck, shoes, wallet. slept 8 hours. chronic irritability now baseline. Mental Status Exam Mental Status Exam Patient Appearance: Appropriate Patient Orientation: Person and Situation Level of Consciousness: Awake and Appropriate Patient Behavior: Guarded and Passive Mood Description: Withdrawn Affect Description: Constricted Patient Cognition Impaired: Yes Ability to Follow Directions: Good Speech Pattern: Clear Hallucinations: None Delusions: Ideas of Reference Thought Process: Distracted and Evasive Thought Content: positive for [place] and positive for Poverty of Content Judgement: Poor Diagnostics Vital Signs (24Hr): Vital Signs - 24 hr 10/22/23 20:00 10/23/23 08:54 Temperature 98.3 F 97.4 F Pulse Rate 70 103 H Respiratory Rate 18 17 Blood Pressure 140/69 H 137/73 Pulse Oximetry 94 95 Oxygen Delivery Method Room Air BMI result Body Mass Index 23.5 Labs 10/16/23 16:18 10/16/23 16:18 Imaging Radiology Impressions: ITS Impressions Shoulder X-Ray 07/30/23 09:55 IMPRESSION: 1. No metallic foreign body. 2. Calcification adjacent to the humeral head likely on the basis of calcific tendinosis. Orbit X-Ray 07/30/23 11:07 IMPRESSION: 1. No unexpected radiopaque foreign bodies. 2. Clear lungs. 3. Nonobstructive bowel gas pattern. 4. Moderate to large degree of colonic stool burden. Brain MRI 07/30/23 20:40 IMPRESSION: No acute intracranial abnormality. No findings to suggest Wernicke encephalopathy. Hand X-Ray 08/26/23 09:05 IMPRESSION: No fracture seen. Medications Medications Current Medications Acetaminophen (Acetaminophen 325 Mg Tablet) 650 mg PO Q6H PRN PRN Reason: Headache/Pain (1-10) Last Admin: 10/12/23 05:58 Dose: 650 mg Al Hydroxide/Mg Hydroxide (Magnesium Hydrox/Alum Hydrox 30 Ml Oral.Susp) 30 ml PO Q6H PRN PRN Reason: Heartburn/Nausea Last Admin: 10/17/23 22:22 Dose: 30 ml Artificial Tears (Artificial Tears 15 Ml Drops) 1 drop EYE-BOTH Q4H PRN PRN Reason: Dry Eyes Last Admin: 10/04/23 09:24 Dose: 1 drop Benzocaine (Throat Lozenge, Medicated Lozenge) 1 lozenge MUCOUS MEM Q4H PRN PRN Reason: Sore Throat Brimonidine Tartrate (Brimonidine Tartrate 0.2% Oph 5 Ml Bottle) 1 drop EYE- BOTH TID [facility] TO [facility] Last Admin: 10/23/23 14:24 Dose: 1 drop Donepezil HCl (Donepezil Hcl 10 Mg Tablet) 10 mg PO BEDTIME [facility] Last Admin: 10/22/23 20:29 Dose: 10 mg Guaifenesin (Guaifenesin 200 Mg/10 Ml 10 Ml Liquid) 10 ml PO Q6H PRN PRN Reason: Cough Last Admin: 09/05/23 23:21 Dose: 10 ml Lidocaine (Lidocaine 4 % Patch Adh..Patch) 2 patch TRANSDERMA DAILY PRN; Protocol PRN Reason: bilateral low back pain Last Admin: 09/26/23 04:27 Dose: 2 patch Magnesium Hydroxide (Milk Of Magnesia 30 Ml Oral.Susp) 30 ml PO DAILY PRN PRN Reason: Constipation Last Admin: 08/23/23 08:41 Dose: 30 ml Memantine (Memantine Hcl 10 Mg Tablet) 10 mg PO BID [facility] Last Admin: 10/23/23 08:55 Dose: 10 mg Quetiapine Fumarate (Quetiapine Fumarate 25 Mg Tablet) 25 mg PO BID PRN PRN Reason: anxiety/agitation Last Admin: 10/22/23 22:20 Dose: 25 mg Quetiapine Fumarate (Quetiapine Fumarate 25 Mg Tablet) 25 mg PO DAILY@1700 [facility] Last Admin: 10/22/23 17:20 Dose: 25 mg Quetiapine Fumarate (Quetiapine Fumarate 25 Mg Tablet) 12.5 mg PO BID@0830,1330 [facility] Last Admin: 10/23/23 14:25 Dose: 12.5 mg Quetiapine Fumarate (Quetiapine Fumarate 50 Mg Tablet) 50 mg PO BEDTIME [facility] Last Admin: 10/22/23 20:30 Dose: 50 mg Sumatriptan Succinate (Sumatriptan Succinate 50 Mg Tablet) 50 mg PO DAILY MRX1 PRN PRN Reason: Migraine Headache Last Admin: 10/16/23 06:46 Dose: 50 mg Thiamine HCl (Thiamine Hcl 100 Mg Tablet) 100 mg PO DAILY [facility] Last Admin: 10/23/23 08:55 Dose: 100 mg Trazodone HCl (Trazodone Hcl 50 Mg Tablet) 50 mg PO BEDTIME MRX1 PRN PRN Reason: Insomnia Last Admin: 10/22/23 22:20 Dose: 50 mg Allergies Allergies Allergy/AdvReac Type Severity Reaction Status Date / Time Sulfa (Sulfonamide Allergy Severe ANAPHYLAXIS Verified 08/25/23 23:13 Antibiotics) [SULFA (SULFONAMIDE ANTIBIOTICS)] mold Allergy Intermediate Shortness Verified 08/25/23 22:42 of Breath Assessment & Plan Assessment & Plan (1) Alcohol abuse with alcohol-induced mental disorder: Status: Acute Code(s): F10.188 - Alcohol abuse with other alcohol-induced disorder Plan The patient is a 78-year-old male with a past history of alcohol use disorder who was brought to the emergency room of another hospital for psychotic symptoms at the this moment currently denies. 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 09/19 patient adamant about being able to go home soon. Unaware of cognitive issues Plan continue tx. awaiting placement. Reason for continued inpatient stay Substantial Risk for: inability to function and rapid decompensation Time Spent With Patient Time: Total time managing care of this patient today ____ minutes.
[2023-10-23] MEDS: QUEtiapine Fumarate 25 MG TABLET PO (17:28)
[2023-10-23 20:00] VITALS: BP 133/75; PULSE 70; RESP 16; TEMP 35.5; O2SAT 96
[2023-10-23] MEDS: QUEtiapine Fumarate 50 MG TABLET PO (20:46)
[2023-10-23] MEDS: traZODone HCL 50 MG TABLET PO (20:46)
[2023-10-23] MEDS: Donepezil HCl 10 MG TABLET PO (20:47)
--- NOTE | 2023-10-24 07:52 | HO.PSYCHPN ---
Subjective Subjective Date of Service: 10/24/23 Reason For Visit: Adjustment disorder,w/mixed disturbance of emotion Subjective Notes: Conditional Voluntary Interim History: Pt slept through the night. he reports he enjoys reading and glad he brought a book, otherwise reports there is nothing to do here. He states they better not send me to a facility, I will only go home. He reports he spoke with his brother who is working on his behalf on financial stuff. Awaiting placement. Review of Systems Review of Systems Denies today Yes all other systems are reviewed and are negative Mental Status Exam Mental Status Exam Patient Appearance: Appropriate Patient Orientation: Person and Situation Level of Consciousness: Awake and Appropriate Patient Behavior: Guarded and Passive Mood Description: Withdrawn Affect Description: Constricted Patient Cognition Impaired: Yes Ability to Follow Directions: Good Speech Pattern: Clear Memory Description: Recent Impaired Diagnostics Vital Signs (24Hr): Vital Signs - 24 hr 10/23/23 08:54 10/23/23 20:00 Temperature 97.4 F 95.9 F L Pulse Rate 103 H 70 Respiratory Rate 17 16 Blood Pressure 137/73 133/75 Pulse Oximetry 95 96 Oxygen Delivery Method Room Air BMI result Body Mass Index 23.5 Labs 10/16/23 16:18 10/16/23 16:18 Imaging Radiology Impressions: ITS Impressions Shoulder X-Ray 07/30/23 09:55 IMPRESSION: 1. No metallic foreign body. 2. Calcification adjacent to the humeral head likely on the basis of calcific tendinosis. Orbit X-Ray 07/30/23 11:07 IMPRESSION: 1. No unexpected radiopaque foreign bodies. 2. Clear lungs. 3. Nonobstructive bowel gas pattern. 4. Moderate to large degree of colonic stool burden. Brain MRI 07/30/23 20:40 IMPRESSION: No acute intracranial abnormality. No findings to suggest Wernicke encephalopathy. Hand X-Ray 08/26/23 09:05 IMPRESSION: No fracture seen. Medications Medications Current Medications Acetaminophen (Acetaminophen 325 Mg Tablet) 650 mg PO Q6H PRN PRN Reason: Headache/Pain (1-10) Last Admin: 10/12/23 05:58 Dose: 650 mg Al Hydroxide/Mg Hydroxide (Magnesium Hydrox/Alum Hydrox 30 Ml Oral.Susp) 30 ml PO Q6H PRN PRN Reason: Heartburn/Nausea Last Admin: 08/23/24 22:22 Dose: 30 ml Artificial Tears (Artificial Tears 15 Ml Drops) 1 drop EYE-BOTH Q4H PRN PRN Reason: Dry Eyes Last Admin: 10/04/23 09:24 Dose: 1 drop Benzocaine (Throat Lozenge, Medicated Lozenge) 1 lozenge MUCOUS MEM Q4H PRN PRN Reason: Sore Throat Brimonidine Tartrate (Brimonidine Tartrate 0.2% Oph 5 Ml Bottle) 1 drop EYE-BOTH TID [facility] Last Admin: 10/23/23 20:45 Dose: 1 drop Donepezil HCl (Donepezil Hcl 10 Mg Tablet) 10 mg PO BEDTIME [facility] Last Admin: 10/23/23 20:47 Dose: 10 mg Guaifenesin (Guaifenesin 200 Mg/10 Ml 10 Ml Liquid) 10 ml PO Q6H PRN PRN Reason: Cough Last Admin: 09/05/23 23:21 Dose: 10 ml Lidocaine (Lidocaine 4 % Patch Adh..Patch) 2 patch TRANSDERMA DAILY PRN; Protocol PRN Reason: bilateral low back pain Last Admin: 09/26/23 04:27 Dose: 2 patch Magnesium Hydroxide (Milk Of Magnesia 30 Ml Oral.Susp) 30 ml PO DAILY PRN PRN Reason: Constipation Last Admin: 08/23/23 08:41 Dose: 30 ml Memantine (Memantine Hcl 10 Mg Tablet) 10 mg PO BID [facility] Last Admin: 10/23/23 20:47 Dose: 10 mg Quetiapine Fumarate (Quetiapine Fumarate 25 Mg Tablet) 25 mg PO BID PRN PRN Reason: anxiety/agitation Last Admin: 10/22/23 22:20 Dose: 25 mg Quetiapine Fumarate (Quetiapine Fumarate 25 Mg Tablet) 25 mg PO DAILY@1700 [facility] Last Admin: 10/23/23 17:28 Dose: 25 mg Quetiapine Fumarate (Quetiapine Fumarate 25 Mg Tablet) 12.5 mg PO BID@0830,1330 [facility] Last Admin: 10/23/23 14:25 Dose: 12.5 mg Quetiapine Fumarate (Quetiapine Fumarate 50 Mg Tablet) 50 mg PO BEDTIME [facility] Last Admin: 10/23/23 20:46 Dose: 50 mg Sumatriptan Succinate (Sumatriptan Succinate 50 Mg Tablet) 50 mg PO DAILY MRX1 PRN PRN Reason: Migraine Headache Last Admin: 10/16/23 06:46 Dose: 50 mg Thiamine HCl (Thiamine Hcl 100 Mg Tablet) 100 mg PO DAILY [facility] Last Admin: 10/23/23 08:55 Dose: 100 mg Trazodone HCl (Trazodone Hcl 50 Mg Tablet) 50 mg PO BEDTIME MRX1 PRN PRN Reason: Insomnia Last Admin: 10/23/23 20:46 Dose: 50 mg Allergies Allergies Allergy/AdvReac Type Severity Reaction Status Date / Time Sulfa (Sulfonamide Allergy Severe ANAPHYLAXIS Verified 08/25/23 23:13 Antibiotics) [SULFA (SULFONAMIDE ANTIBIOTICS)] mold Allergy Intermediate Shortness Verified 08/25/23 22:42 of Breath Assessment & Plan Assessment & Plan (1) Alcohol abuse with alcohol-induced mental disorder: Status: Acute Code(s): F10.188 - Alcohol abuse with other alcohol-induced disorder Plan The patient is a 78-year-old male with a past history of alcohol use disorder who was brought to the emergency room of another hospital for psychotic symptoms at the this moment currently denies. 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 09/19 patient adamant about being able to go home soon. Unaware of cognitive issues Plan continue tx. awaiting placement. Reason for continued inpatient stay Substantial Risk for: inability to function Time Spent With Patient Time: Total time managing care of this patient today ____ minutes.
[2023-10-24 08:55] VITALS: BP 135/69; PULSE 73; RESP 16; TEMP 36.8; O2SAT 95
[2023-10-24] MEDS: Thiamine HCL 100 MG TABLET PO (09:02)
[2023-10-24] MEDS: QUEtiapine Fumarate 25 MG TABLET 12.5 MG PO ×2 (09:02→13:26)
[2023-10-24] MEDS: Memantine HCl 10 MG TABLET PO ×2 (09:02→20:35)
[2023-10-24] MEDS: Brimonidine Tartrate 0.2% Oph 5 ML BOTTLE 1 DROP EYE-BOTH ×3 (09:03→20:35)
[2023-10-24] MEDS: QUEtiapine Fumarate 25 MG TABLET PO (16:51)
[2023-10-24 20:00] VITALS: BP 120/65; PULSE 83; RESP 16; TEMP 36.6; O2SAT 92
[2023-10-24] MEDS: QUEtiapine Fumarate 50 MG TABLET PO (20:34)
[2023-10-24] MEDS: Donepezil HCl 10 MG TABLET PO (20:34)
[2023-10-24] MEDS: Magnesium Hydrox/Alum Hydrox 30 ML ORAL.SUSP PO (22:11)
[2023-10-25 08:43] VITALS: BP 147/66; PULSE 86; RESP 18; TEMP 36.1; O2SAT 95
--- NOTE | 2023-10-25 09:10 | P.PNPSI_ITS ---
Subjective Subjective Date of Service: 10/25/23 Reason For Visit: Adjustment disorder,w/mixed disturbance of emotion Interim History: Patient reports good sleep. He reports feeling well. Denies any complaints. Adherent to medications. Denies SI. No behavioral concerns. He is visible in the milieu and retreats to his room. He likes to read. Awaiting placement. Review of Systems Review of Systems Denies today Yes all other systems are reviewed and are negative Mental Status Exam Mental Status Exam Narrative: Kempt except dick which he would like to shave Patient Appearance: Appropriate Patient Orientation: Person and Situation Level of Consciousness: Awake and Appropriate Patient Behavior: Guarded and Passive Mood Description: Withdrawn Affect Description: Constricted Patient Cognition Impaired: Yes Ability to Follow Directions: Good Speech Pattern: Clear Memory Description: Recent Impaired Diagnostics Vital Signs (24Hr): Vital Signs - 24 hr 10/24/23 20:00 10/25/23 08:43 Temperature 97.8 F 96.9 F Pulse Rate 83 86 Respiratory Rate 16 18 Blood Pressure 120/65 147/66 H Pulse Oximetry 92 95 Oxygen Delivery Method Room Air Room Air BMI result Body Mass Index 23.5 Labs 10/16/23 16:18 10/16/23 16:18 Imaging Radiology Impressions: ITS Impressions Shoulder X-Ray 07/30/23 09:55 IMPRESSION: 1. No metallic foreign body. 2. Calcification adjacent to the humeral head likely on the basis of calcific tendinosis. Orbit X-Ray 07/30/23 11:07 IMPRESSION: 1. No unexpected radiopaque foreign bodies. 2. Clear lungs. 3. Nonobstructive bowel gas pattern. 4. Moderate to large degree of colonic stool burden. Brain MRI 07/30/23 20:40 IMPRESSION: No acute intracranial abnormality. No findings to suggest Wernicke encephalopathy. Hand X-Ray 08/26/23 09:05 IMPRESSION: No fracture seen. Medications Medications Current Medications Acetaminophen (Acetaminophen 325 Mg Tablet) 650 mg PO Q6H PRN PRN Reason: Headache/Pain (1-10) Last Admin: 10/12/23 05:58 Dose: 650 mg Al Hydroxide/Mg Hydroxide (Magnesium Hydrox/Alum Hydrox 30 Ml Oral.Susp) 30 ml PO Q6H PRN PRN Reason: Heartburn/Nausea Last Admin: 10/24/23 22:11 Dose: 30 ml Artificial Tears (Artificial Tears 15 Ml Drops) 1 drop EYE-BOTH Q4H PRN PRN Reason: Dry Eyes Last Admin: 10/04/23 09:24 Dose: 1 drop Benzocaine (Throat Lozenge, Medicated Lozenge) 1 lozenge MUCOUS MEM Q4H PRN PRN Reason: Sore Throat Brimonidine Tartrate (Brimonidine Tartrate 0.2% Oph 5 Ml Bottle) 1 drop EYE- BOTH TID [facility] Last Admin: 10/24/23 20:35 Dose: 1 drop Donepezil HCl (Donepezil Hcl 10 Mg Tablet) 10 mg PO BEDTIME [facility] Last Admin: 10/24/23 20:34 Dose: 10 mg Guaifenesin (Guaifenesin 200 Mg/10 Ml 10 Ml Liquid) 10 ml PO Q6H PRN PRN Reason: Cough Last Admin: 09/05/23 23:21 Dose: 10 ml Lidocaine (Lidocaine 4 % Patch Adh..Patch) 2 patch TRANSDERMA DAILY PRN; Protocol PRN Reason: bilateral low back pain Last Admin: 09/26/23 04:27 Dose: 2 patch Magnesium Hydroxide (Milk Of Magnesia 30 Ml Oral.Susp) 30 ml PO DAILY PRN PRN Reason: Constipation Last Admin: 08/23/23 08:41 Dose: 30 ml Memantine (Memantine Hcl 10 Mg Tablet) 10 mg PO BID [facility] Last Admin: 10/24/23 20:35 Dose: 10 mg Quetiapine Fumarate (Quetiapine Fumarate 25 Mg Tablet) 25 mg PO BID PRN PRN Reason: anxiety/agitation Last Admin: 10/22/23 22:20 Dose: 25 mg Quetiapine Fumarate (Quetiapine Fumarate 25 Mg Tablet) 25 mg PO DAILY@1700 [facility] Last Admin: 10/24/23 16:51 Dose: 25 mg Quetiapine Fumarate (Quetiapine Fumarate 25 Mg Tablet) 12.5 mg PO BID@0830,1330 [facility] Last Admin: 10/24/23 13:26 Dose: 12.5 mg Quetiapine Fumarate (Quetiapine Fumarate 50 Mg Tablet) 50 mg PO BEDTIME [facility] Last Admin: 10/24/23 20:34 Dose: 50 mg Sumatriptan Succinate (Sumatriptan Succinate 50 Mg Tablet) 50 mg PO DAILY MRX1 PRN PRN Reason: Migraine Headache Last Admin: 10/16/23 06:46 Dose: 50 mg Thiamine HCl (Thiamine Hcl 100 Mg Tablet) 100 mg PO DAILY [facility] Last Admin: 10/24/23 09:02 Dose: 100 mg Trazodone HCl (Trazodone Hcl 50 Mg Tablet) 50 mg PO BEDTIME MRX1 PRN PRN Reason: Insomnia Last Admin: 10/23/23 20:46 Dose: 50 mg Allergies Allergies Allergy/AdvReac Type Severity Reaction Status Date / Time Sulfa (Sulfonamide Allergy Severe ANAPHYLAXIS Verified 08/25/23 23:13 Antibiotics) [SULFA (SULFONAMIDE ANTIBIOTICS)] mold Allergy Intermediate Shortness Verified 08/25/23 22:42 of Breath Assessment & Plan Assessment & Plan (1) Alcohol abuse with alcohol-induced mental disorder: Status: Acute Code(s): F10.188 - Alcohol abuse with other alcohol-induced disorder Plan The patient is a 78-year-old male with a past history of alcohol use disorder who was brought to the emergency room of another hospital for psychotic symptoms at the this moment currently denies. 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 09/19 patient adamant about being able to go home soon. Unaware of cognitive issues Plan continue tx. awaiting placement. 10/24: continue current management and treatment plan. Reason for continued inpatient stay Substantial Risk for: inability to function and rapid decompensation Time Spent With Patient Time: Total time managing care of this patient today ____ minutes.
[2023-10-25] MEDS: Brimonidine Tartrate 0.2% Oph 5 ML BOTTLE 1 DROP EYE-BOTH ×3 (09:21→20:44)
[2023-10-25] MEDS: QUEtiapine Fumarate 25 MG TABLET 12.5 MG PO ×2 (09:22→13:50)
[2023-10-25] MEDS: Thiamine HCL 100 MG TABLET PO (09:23)
[2023-10-25] MEDS: Memantine HCl 10 MG TABLET PO ×2 (09:23→20:44)
[2023-10-25] MEDS: QUEtiapine Fumarate 25 MG TABLET PO (16:38)
[2023-10-25 20:00] VITALS: BP 136/63; PULSE 70; RESP 16; TEMP 36.6; O2SAT 98
[2023-10-25] MEDS: QUEtiapine Fumarate 50 MG TABLET PO (20:44)
[2023-10-25] MEDS: Donepezil HCl 10 MG TABLET PO (20:44)
[2023-10-26] MEDS: Acetaminophen 325 MG TABLET 650 MG PO (03:26)
[2023-10-26 08:44] VITALS: BP 140/76; PULSE 72; RESP 18; TEMP 36.1; O2SAT 97
[2023-10-26] MEDS: Brimonidine Tartrate 0.2% Oph 5 ML BOTTLE 1 DROP EYE-BOTH ×3 (08:45→20:23)
[2023-10-26] MEDS: Memantine HCl 10 MG TABLET PO ×2 (08:46→20:22)
[2023-10-26] MEDS: QUEtiapine Fumarate 25 MG TABLET 12.5 MG PO ×2 (08:46→13:35)
[2023-10-26] MEDS: Thiamine HCL 100 MG TABLET PO (08:47)
--- NOTE | 2023-10-26 11:40 | HO.PSYCHPN ---
Subjective Subjective Date of Service: 10/26/23 Reason For Visit: Adjustment disorder,w/mixed disturbance of emotion Interim History: Patient reports he is in a reasonable mood . Says he wants to go home. Limited insight into reason for hospitalization saying he was here because he was here before and he had made some friends and it's a good place to be for a while but now I feel better . Patient reports good sleep. He reports feeling well. Denies any complaints. Adherent to medications. Denies SI. No behavioral concerns. He is visible in the milieu and retreats to his room. He likes to read. Awaiting placement. Review of Systems Review of Systems Denies today Yes all other systems are reviewed and are negative Mental Status Exam Mental Status Exam Narrative: Kempt except dick which he would like to shave Patient Appearance: Appropriate Patient Orientation: Person and Situation Level of Consciousness: Awake and Appropriate Patient Behavior: Guarded and Passive Mood Description: Withdrawn Affect Description: Constricted Patient Cognition Impaired: Yes Ability to Follow Directions: Good Speech Pattern: Clear Memory Description: Recent Impaired Diagnostics Vital Signs (24Hr): Vital Signs - 24 hr 10/25/23 20:00 10/26/23 08:44 Temperature 98 F 96.9 F Pulse Rate 70 72 Respiratory Rate 16 18 Blood Pressure 136/63 140/76 H Pulse Oximetry 98 97 Oxygen Delivery Method Room Air Room Air BMI result Body Mass Index 23.5 Labs 10/16/23 16:18 10/16/23 16:18 Imaging Radiology Impressions: ITS Impressions Shoulder X-Ray 07/30/23 09:55 IMPRESSION: 1. No metallic foreign body. 2. Calcification adjacent to the humeral head likely on the basis of calcific tendinosis. Orbit X-Ray 07/30/23 11:07 IMPRESSION: 1. No unexpected radiopaque foreign bodies. 2. Clear lungs. 3. Nonobstructive bowel gas pattern. 4. Moderate to large degree of colonic stool burden. Brain MRI 07/30/23 20:40 IMPRESSION: No acute intracranial abnormality. No findings to suggest Wernicke encephalopathy. Hand X-Ray 08/26/23 09:05 IMPRESSION: No fracture seen. Medications Medications Current Medications Acetaminophen (Acetaminophen 325 Mg Tablet) 650 mg PO Q6H PRN PRN Reason: Headache/Pain (1-10) Last Admin: 10/26/23 03:26 Dose: 650 mg Al Hydroxide/Mg Hydroxide (Magnesium Hydrox/Alum Hydrox 30 Ml Oral.Susp) 30 ml PO Q6H PRN PRN Reason: Heartburn/Nausea Last Admin: 10/24/23 22:11 Dose: 30 ml Artificial Tears (Artificial Tears 15 Ml Drops) 1 drop EYE-BOTH Q4H PRN PRN Reason: Dry Eyes Last Admin: 10/04/23 09:24 Dose: 1 drop Benzocaine (Throat Lozenge, Medicated Lozenge) 1 lozenge MUCOUS MEM Q4H PRN PRN Reason: Sore Throat Brimonidine Tartrate (Brimonidine Tartrate 0.2% Oph 5 Ml Bottle) 1 drop EYE-BOTH TID [facility] Last Admin: 10/26/23 08:45 Dose: 1 drop Donepezil HCl (Donepezil Hcl 10 Mg Tablet) 10 mg PO BEDTIME [facility] Last Admin: 10/25/23 20:44 Dose: 10 mg Guaifenesin (Guaifenesin 200 Mg/10 Ml 10 Ml Liquid) 10 ml PO Q6H PRN PRN Reason: Cough Last Admin: 09/05/23 23:21 Dose: 10 ml Lidocaine (Lidocaine 4 % Patch Adh..Patch) 2 patch TRANSDERMA DAILY PRN; Protocol PRN Reason: bilateral low back pain Last Admin: 09/26/23 04:27 Dose: 2 patch Magnesium Hydroxide (Milk Of Magnesia 30 Ml Oral.Susp) 30 ml PO DAILY PRN PRN Reason: Constipation Last Admin: 08/23/23 08:41 Dose: 30 ml Memantine (Memantine Hcl 10 Mg Tablet) 10 mg PO BID [facility] Last Admin: 10/26/23 08:46 Dose: 10 mg Quetiapine Fumarate (Quetiapine Fumarate 25 Mg Tablet) 25 mg PO BID PRN PRN Reason: anxiety/agitation Last Admin: 10/22/23 22:20 Dose: 25 mg Quetiapine Fumarate (Quetiapine Fumarate 25 Mg Tablet) 25 mg PO DAILY@1700 [facility] Last Admin: 10/25/23 16:38 Dose: 25 mg Quetiapine Fumarate (Quetiapine Fumarate 25 Mg Tablet) 12.5 mg PO BID@0830,1330 [facility] Last Admin: 10/26/23 08:46 Dose: 12.5 mg Quetiapine Fumarate (Quetiapine Fumarate 50 Mg Tablet) 50 mg PO BEDTIME [facility] Last Admin: 10/25/23 20:44 Dose: 50 mg Sumatriptan Succinate (Sumatriptan Succinate 50 Mg Tablet) 50 mg PO DAILY MRX1 PRN PRN Reason: Migraine Headache Last Admin: 10/16/23 06:46 Dose: 50 mg Thiamine HCl (Thiamine Hcl 100 Mg Tablet) 100 mg PO DAILY [facility] Last Admin: 10/26/23 08:47 Dose: 100 mg Trazodone HCl (Trazodone Hcl 50 Mg Tablet) 50 mg PO BEDTIME MRX1 PRN PRN Reason: Insomnia Last Admin: 10/23/23 20:46 Dose: 50 mg Allergies Allergies Allergy/AdvReac Type Severity Reaction Status Date / Time Sulfa (Sulfonamide Allergy Severe ANAPHYLAXIS Verified 08/25/23 23:13 Antibiotics) [SULFA (SULFONAMIDE ANTIBIOTICS)] mold Allergy Intermediate Shortness Verified 08/25/23 22:42 of Breath Assessment & Plan Assessment & Plan (1) Alcohol abuse with alcohol-induced mental disorder: Status: Acute Code(s): F10.188 - Alcohol abuse with other alcohol-induced disorder Plan The patient is a 78-year-old male with a past history of alcohol use disorder who was brought to the emergency room of another hospital for psychotic symptoms at the this moment currently denies. 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 09/19 patient adamant about being able to go home soon. Unaware of cognitive issues Plan continue tx. awaiting placement. 10/24: continue current management and treatment plan. 10/25: Continue current management and treatment plan. Reason for continued inpatient stay Substantial Risk for: inability to function and rapid decompensation Time Spent With Patient Time: Total time managing care of this patient today ____ minutes.
[2023-10-26] MEDS: QUEtiapine Fumarate 25 MG TABLET PO (16:46)
[2023-10-26 20:00] VITALS: BP 149/83; PULSE 81; RESP 16; TEMP 36.1; O2SAT 96
[2023-10-26] MEDS: Artificial Tears 15 ML DROPS 1 DROP EYE-BOTH (20:21)
[2023-10-26] MEDS: QUEtiapine Fumarate 50 MG TABLET PO (20:22)
[2023-10-26] MEDS: Donepezil HCl 10 MG TABLET PO (20:22)
[2023-10-27] MEDS: traZODone HCL 50 MG TABLET PO ×2 (03:20→20:38)
[2023-10-27] MEDS: Artificial Tears 15 ML DROPS 1 DROP EYE-BOTH (03:31)
[2023-10-27 08:18] VITALS: BP 122/79; PULSE 65; RESP 18; TEMP 36.6; O2SAT 95
[2023-10-27] MEDS: QUEtiapine Fumarate 25 MG TABLET 12.5 MG PO ×2 (08:20→13:17)
[2023-10-27] MEDS: Brimonidine Tartrate 0.2% Oph 5 ML BOTTLE 1 DROP EYE-BOTH ×3 (08:20→20:38)
[2023-10-27] MEDS: Memantine HCl 10 MG TABLET PO ×2 (08:20→20:38)
[2023-10-27] MEDS: Thiamine HCL 100 MG TABLET PO (08:20)
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
[2023-10-27] MEDS: QUEtiapine Fumarate 25 MG TABLET PO (16:31)
[2023-10-27 20:00] VITALS: BP 112/58; PULSE 70; RESP 17; TEMP 36.5; O2SAT 95
[2023-10-27] MEDS: QUEtiapine Fumarate 50 MG TABLET PO (20:38)
[2023-10-27] MEDS: Donepezil HCl 10 MG TABLET PO (20:38)
[2023-10-28] MEDS: SUMAtriptan succinate 50 MG TABLET PO (05:39)
[2023-10-28] MEDS: QUEtiapine Fumarate 25 MG TABLET PO ×3 (06:48→23:54)
[2023-10-28] MEDS: Acetaminophen 325 MG TABLET 650 MG PO (06:49)
[2023-10-28 09:05] VITALS: BP 130/61; PULSE 73; RESP 18; TEMP 36.6; O2SAT 97
[2023-10-28] MEDS: Memantine HCl 10 MG TABLET PO ×2 (09:13→20:12)
[2023-10-28] MEDS: QUEtiapine Fumarate 25 MG TABLET 12.5 MG PO ×2 (09:13→13:14)
[2023-10-28] MEDS: Brimonidine Tartrate 0.2% Oph 5 ML BOTTLE 1 DROP EYE-BOTH ×3 (09:14→20:12)
[2023-10-28] MEDS: Thiamine HCL 100 MG TABLET PO (09:14)
--- NOTE | 2023-10-28 12:33 | HO.PSYCHPN ---
Subjective Subjective Date of Service: 10/28/23 Reason For Visit: Adjustment disorder,w/mixed disturbance of emotion Subjective Notes: Conditional Voluntary Guardianship: Yes Interim History: The nursing staff reported the patient had been and happy today since the engineers were repairing the window on his room and he needed to state out. On interview the patient remains with poor short-term memory wants to be discharged unable to assess that he is technically homeless. Mental Status Exam Mental Status Exam Patient Appearance: Appropriate Patient Orientation: Person and Situation Level of Consciousness: Awake and Appropriate Patient Behavior: Guarded and Passive Mood Description: Withdrawn Affect Description: Constricted Patient Cognition Impaired: Yes Ability to Follow Directions: Good Speech Pattern: Clear Hallucinations: None Delusions: Ideas of Reference Thought Process: Distracted and Slowed Thinking Thought Content: positive for [place] and positive for Poverty of Content Judgement: Poor Diagnostics Vital Signs (24Hr): Vital Signs - 24 hr 10/27/23 20:00 10/28/23 09:05 Temperature 97.7 F 97.9 F Pulse Rate 70 73 Respiratory Rate 17 18 Blood Pressure 112/58 L 130/61 Pulse Oximetry 95 97 Oxygen Delivery Method Room Air Room Air BMI result Body Mass Index 23.5 Labs 10/16/23 16:18 10/16/23 16:18 Imaging Radiology Impressions: ITS Impressions Shoulder X-Ray 07/30/23 09:55 IMPRESSION: 1. No metallic foreign body. 2. Calcification adjacent to the humeral head likely on the basis of calcific tendinosis. Orbit X-Ray 07/30/23 11:07 IMPRESSION: 1. No unexpected radiopaque foreign bodies. 2. Clear lungs. 3. Nonobstructive bowel gas pattern. 4. Moderate to large degree of colonic stool burden. Brain MRI 07/30/23 20:40 IMPRESSION: No acute intracranial abnormality. No findings to suggest Wernicke encephalopathy. Hand X-Ray 08/26/23 09:05 IMPRESSION: No fracture seen. Medications Medications Current Medications Acetaminophen (Acetaminophen 325 Mg Tablet) 650 mg PO Q6H PRN PRN Reason: Headache/Pain (1-10) Last Admin: 10/28/23 06:49 Dose: 650 mg Al Hydroxide/Mg Hydroxide (Magnesium Hydrox/Alum Hydrox 30 Ml Oral.Susp) 30 ml PO Q6H PRN PRN Reason: Heartburn/Nausea Last Admin: 10/24/23 22:11 Dose: 30 ml Artificial Tears (Artificial Tears 15 Ml Drops) 1 drop EYE-BOTH Q4H PRN PRN Reason: Dry Eyes Last Admin: 10/27/23 03:31 Dose: 1 drop Benzocaine (Throat Lozenge, Medicated Lozenge) 1 lozenge MUCOUS MEM Q4H PRN PRN Reason: Sore Throat Brimonidine Tartrate (Brimonidine Tartrate 0.2% Oph 5 Ml Bottle) 1 drop EYE-BOTH TID [facility] Last Admin: 10/28/23 09:14 Dose: 1 drop Donepezil HCl (Donepezil Hcl 10 Mg Tablet) 10 mg PO BEDTIME [facility] Last Admin: 10/27/23 20:38 Dose: 10 mg Guaifenesin (Guaifenesin 200 Mg/10 Ml 10 Ml Liquid) 10 ml PO Q6H PRN PRN Reason: Cough Last Admin: 09/05/23 23:21 Dose: 10 ml Lidocaine (Lidocaine 4 % Patch Adh..Patch) 2 patch TRANSDERMA DAILY PRN; Protocol PRN Reason: bilateral low back pain Last Admin: 09/26/23 04:27 Dose: 2 patch Magnesium Hydroxide (Milk Of Magnesia 30 Ml Oral.Susp) 30 ml PO DAILY PRN PRN Reason: Constipation Last Admin: 08/23/23 08:41 Dose: 30 ml Memantine (Memantine Hcl 10 Mg Tablet) 10 mg PO BID [facility] Last Admin: 10/28/23 09:13 Dose: 10 mg Quetiapine Fumarate (Quetiapine Fumarate 25 Mg Tablet) 25 mg PO BID PRN PRN Reason: anxiety/agitation Last Admin: 10/28/23 06:48 Dose: 25 mg Quetiapine Fumarate (Quetiapine Fumarate 25 Mg Tablet) 25 mg PO DAILY@1700 [facility] Last Admin: 10/27/23 16:31 Dose: 25 mg Quetiapine Fumarate (Quetiapine Fumarate 25 Mg Tablet) 12.5 mg PO BID@0830,1330 [facility] Last Admin: 10/28/23 09:13 Dose: 12.5 mg Quetiapine Fumarate (Quetiapine Fumarate 50 Mg Tablet) 50 mg PO BEDTIME [facility] Last Admin: 10/27/23 20:38 Dose: 50 mg Sumatriptan Succinate (Sumatriptan Succinate 50 Mg Tablet) 50 mg PO DAILY MRX1 PRN PRN Reason: Migraine Headache Last Admin: 10/28/23 05:39 Dose: 50 mg Thiamine HCl (Thiamine Hcl 100 Mg Tablet) 100 mg PO DAILY [facility] Last Admin: 10/28/23 09:14 Dose: 100 mg Trazodone HCl (Trazodone Hcl 50 Mg Tablet) 50 mg PO BEDTIME MRX1 PRN PRN Reason: Insomnia Last Admin: 10/27/23 20:38 Dose: 50 mg Allergies Allergies Allergy/AdvReac Type Severity Reaction Status Date / Time Sulfa (Sulfonamide Allergy Severe ANAPHYLAXIS Verified 08/25/23 23:13 Antibiotics) [SULFA (SULFONAMIDE ANTIBIOTICS)] mold Allergy Intermediate Shortness Verified 08/25/23 22:42 of Breath Assessment & Plan Assessment & Plan (1) Alcohol abuse with alcohol-induced mental disorder: Status: Acute Code(s): F10.188 - Alcohol abuse with other alcohol-induced disorder Plan The patient is a 78-year-old male with a past history of alcohol use disorder who was brought to the emergency room of another hospital for psychotic symptoms at the this moment currently denies. 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 Plan 1. Continue with same treatment. 2. Waiting for placement. Reason for continued inpatient stay Substantial Risk for: inability to function, rapid decompensation and med/psych decompensation Time Spent With Patient Time: Total time managing care of this patient today __20__ minutes.
[2023-10-28 20:00] VITALS: BP 145/67; PULSE 82; RESP 18; TEMP 36.2; O2SAT 95
[2023-10-28] MEDS: Donepezil HCl 10 MG TABLET PO (20:12)
[2023-10-28] MEDS: traZODone HCL 50 MG TABLET PO ×2 (20:12→23:54)
[2023-10-28] MEDS: QUEtiapine Fumarate 50 MG TABLET PO (20:12)
[2023-10-29] MEDS: Acetaminophen 325 MG TABLET 650 MG PO (03:39)
[2023-10-29 08:00] VITALS: BP 110/63; PULSE 67; RESP 17; TEMP 35.8; O2SAT 96
[2023-10-29] MEDS: Memantine HCl 10 MG TABLET PO ×2 (08:12→20:40)
[2023-10-29] MEDS: Brimonidine Tartrate 0.2% Oph 5 ML BOTTLE 1 DROP EYE-BOTH ×3 (08:12→20:40)
[2023-10-29] MEDS: Thiamine HCL 100 MG TABLET PO (08:13)
[2023-10-29] MEDS: QUEtiapine Fumarate 25 MG TABLET 12.5 MG PO ×2 (08:13→12:45)
--- NOTE | 2023-10-29 14:06 | HO.PSYCHPN ---
Subjective Subjective Date of Service: 10/29/23 Reason For Visit: Adjustment disorder,w/mixed disturbance of emotion Subjective Notes: Conditional Voluntary Interim History: The nursing staff reported the patient had been agitated and angry yesterday since his room needed help by engineering and replace the windows and he needed to stay out of his room. Today we had a family meeting with his son and explained his diagnosis, treatment and prognosis. On interview the patient reports that he wants to go back to his home no insight into his condition or deficits in cognition. Mental Status Exam Mental Status Exam Patient Appearance: Appropriate Patient Orientation: Person and Situation Level of Consciousness: Awake and Appropriate Patient Behavior: Guarded and Passive Mood Description: Calm Affect Description: Constricted Patient Cognition Impaired: Yes Ability to Follow Directions: Good Speech Pattern: Clear Hallucinations: None Delusions: Not Present Thought Process: Distracted and Slowed Thinking Thought Content: positive for [place] and positive for Poverty of Content Judgement: Poor Diagnostics Vital Signs (24Hr): Vital Signs - 24 hr 10/28/23 20:00 10/29/23 08:00 Temperature 97.2 F 96.5 F L Pulse Rate 82 67 Respiratory Rate 18 17 Blood Pressure 145/67 H 110/63 Pulse Oximetry 95 96 Oxygen Delivery Method Room Air Room Air BMI result Body Mass Index 23.5 Labs 10/16/23 16:18 10/16/23 16:18 Imaging Radiology Impressions: ITS Impressions Shoulder X-Ray 07/30/23 09:55 IMPRESSION: 1. No metallic foreign body. 2. Calcification adjacent to the humeral head likely on the basis of calcific tendinosis. Orbit X-Ray 07/30/23 11:07 IMPRESSION: 1. No unexpected radiopaque foreign bodies. 2. Clear lungs. 3. Nonobstructive bowel gas pattern. 4. Moderate to large degree of colonic stool burden. Brain MRI 07/30/23 20:40 IMPRESSION: No acute intracranial abnormality. No findings to suggest Wernicke encephalopathy. Hand X-Ray 08/26/23 09:05 IMPRESSION: No fracture seen. Medications Medications Current Medications Acetaminophen (Acetaminophen 325 Mg Tablet) 650 mg PO Q6H PRN PRN Reason: Headache/Pain (1-10) Last Admin: 10/29/23 03:39 Dose: 650 mg Al Hydroxide/Mg Hydroxide (Magnesium Hydrox/Alum Hydrox 30 Ml Oral.Susp) 30 ml PO Q6H PRN PRN Reason: Heartburn/Nausea Last Admin: 10/24/23 22:11 Dose: 30 ml Artificial Tears (Artificial Tears 15 Ml Drops) 1 drop EYE-BOTH Q4H PRN PRN Reason: Dry Eyes Last Admin: 10/27/23 03:31 Dose: 1 drop Benzocaine (Throat Lozenge, Medicated Lozenge) 1 lozenge MUCOUS MEM Q4H PRN PRN Reason: Sore Throat Brimonidine Tartrate (Brimonidine Tartrate 0.2% Oph 5 Ml Bottle) 1 drop EYE-BOTH TID [facility] Last Admin: 10/29/23 08:12 Dose: 1 drop Donepezil HCl (Donepezil Hcl 10 Mg Tablet) 10 mg PO BEDTIME [facility] Last Admin: 10/28/23 20:12 Dose: 10 mg Guaifenesin (Guaifenesin 200 Mg/10 Ml 10 Ml Liquid) 10 ml PO Q6H PRN PRN Reason: Cough Last Admin: 09/05/23 23:21 Dose: 10 ml Lidocaine (Lidocaine 4 % Patch Adh..Patch) 2 patch TRANSDERMA DAILY PRN; Protocol PRN Reason: bilateral low back pain Last Admin: 09/26/23 04:27 Dose: 2 patch Magnesium Hydroxide (Milk Of Magnesia 30 Ml Oral.Susp) 30 ml PO DAILY PRN PRN Reason: Constipation Last Admin: 08/23/23 08:41 Dose: 30 ml Memantine (Memantine Hcl 10 Mg Tablet) 10 mg PO BID [facility] Last Admin: 10/29/23 08:12 Dose: 10 mg Quetiapine Fumarate (Quetiapine Fumarate 25 Mg Tablet) 25 mg PO BID PRN PRN Reason: anxiety/agitation Last Admin: 10/28/23 23:54 Dose: 25 mg Quetiapine Fumarate (Quetiapine Fumarate 25 Mg Tablet) 25 mg PO DAILY@1700 [facility] Last Admin: 10/28/23 17:15 Dose: 25 mg Quetiapine Fumarate (Quetiapine Fumarate 25 Mg Tablet) 12.5 mg PO BID@0830,1330 [facility] Last Admin: 10/29/23 12:45 Dose: 12.5 mg Quetiapine Fumarate (Quetiapine Fumarate 50 Mg Tablet) 50 mg PO BEDTIME [facility] Last Admin: 10/28/23 20:12 Dose: 50 mg Sumatriptan Succinate (Sumatriptan Succinate 50 Mg Tablet) 50 mg PO DAILY MRX1 PRN PRN Reason: Migraine Headache Last Admin: 10/28/23 05:39 Dose: 50 mg Thiamine HCl (Thiamine Hcl 100 Mg Tablet) 100 mg PO DAILY [facility] Last Admin: 10/29/23 08:13 Dose: 100 mg Trazodone HCl (Trazodone Hcl 50 Mg Tablet) 50 mg PO BEDTIME MRX1 PRN PRN Reason: Insomnia Last Admin: 10/28/23 23:54 Dose: 50 mg Allergies Allergies Allergy/AdvReac Type Severity Reaction Status Date / Time Sulfa (Sulfonamide Allergy Severe ANAPHYLAXIS Verified 08/25/23 23:13 Antibiotics) [SULFA (SULFONAMIDE ANTIBIOTICS)] mold Allergy Intermediate Shortness Verified 08/25/23 22:42 of Breath Assessment & Plan Assessment & Plan (1) Alcohol abuse with alcohol-induced mental disorder: Status: Acute Code(s): F10.188 - Alcohol abuse with other alcohol-induced disorder Plan The patient is a 78-year-old male with a past history of alcohol use disorder who was brought to the emergency room of another hospital for psychotic symptoms at the this moment currently denies. 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 Plan 1. Continue with same treatment. 2. Waiting for placement. 3. After the family meeting, her son disclosed that he has been more anxious so we are going to start a low dose of SSRIs. Reason for continued inpatient stay Substantial Risk for: inability to function, rapid decompensation and med/psych decompensation Time Spent With Patient Time: Total time managing care of this patient today __20__ minutes.
[2023-10-29] MEDS: QUEtiapine Fumarate 25 MG TABLET PO (16:35)
[2023-10-29 20:00] VITALS: BP 145/78; PULSE 72; RESP 18; TEMP 36.3; O2SAT 94
[2023-10-29] MEDS: Donepezil HCl 10 MG TABLET PO (20:40)
[2023-10-29] MEDS: QUEtiapine Fumarate 50 MG TABLET PO (20:40)
[2023-10-30 08:00] VITALS: BP 133/78; PULSE 77; RESP 18; TEMP 2.7; TEMP 36.9; O2SAT 97
[2023-10-30] MEDS: Brimonidine Tartrate 0.2% Oph 5 ML BOTTLE 1 DROP EYE-BOTH ×3 (08:37→20:06)
[2023-10-30] MEDS: Memantine HCl 10 MG TABLET PO ×2 (08:38→19:58)
[2023-10-30] MEDS: Thiamine HCL 100 MG TABLET PO (08:38)
[2023-10-30] MEDS: Sertraline HCL 25 MG TABLET PO (08:38)
[2023-10-30] MEDS: QUEtiapine Fumarate 25 MG TABLET 12.5 MG PO ×2 (08:38→13:35)
[2023-10-30 11:29] VITALS: BMI 23.8
--- NOTE | 2023-10-30 13:10 | P.PNPSI_ITS ---
Subjective Subjective Date of Service: 10/30/23 Reason For Visit: Adjustment disorder,w/mixed disturbance of emotion Subjective Notes: Conditional Voluntary Interim History: The nursing staff reported the patient had not have any changes in his mental status his anxious he slept 8 hours. The patient is realizing that most likely he will be discharged to facility. On interview the patient denies new symptoms, waiting for placement. Mental Status Exam Mental Status Exam Patient Appearance: Appropriate Patient Orientation: Person and Situation Level of Consciousness: Awake and Appropriate Patient Behavior: Guarded and Passive Mood Description: Withdrawn Affect Description: Constricted Patient Cognition Impaired: Yes Ability to Follow Directions: Good Speech Pattern: Clear Hallucinations: None Delusions: Ideas of Reference Thought Process: Distracted and Slowed Thinking Thought Content: positive for [place] and positive for Poverty of Content Judgement: Poor Diagnostics Vital Signs (24Hr): Vital Signs - 24 hr 10/29/23 20:00 10/30/23 08:00 Temperature 97.4 F 36.9 F L Pulse Rate 72 77 Respiratory Rate 18 18 Blood Pressure 145/78 H 133/78 Pulse Oximetry 94 97 Oxygen Delivery Method Room Air Room Air BMI result Body Mass Index 23.8 Labs 10/16/23 16:18 10/16/23 16:18 Imaging Radiology Impressions: ITS Impressions Shoulder X-Ray 07/30/23 09:55 IMPRESSION: 1. No metallic foreign body. 2. Calcification adjacent to the humeral head likely on the basis of calcific tendinosis. Orbit X-Ray 07/30/23 11:07 IMPRESSION: 1. No unexpected radiopaque foreign bodies. 2. Clear lungs. 3. Nonobstructive bowel gas pattern. 4. Moderate to large degree of colonic stool burden. Brain MRI 07/30/23 20:40 IMPRESSION: No acute intracranial abnormality. No findings to suggest Wernicke encephalopathy. Hand X-Ray 08/26/23 09:05 IMPRESSION: No fracture seen. Medications Medications Current Medications Acetaminophen (Acetaminophen 325 Mg Tablet) 650 mg PO Q6H PRN PRN Reason: Headache/Pain (1-10) Last Admin: 10/29/23 03:39 Dose: 650 mg Al Hydroxide/Mg Hydroxide (Magnesium Hydrox/Alum Hydrox 30 Ml Oral.Susp) 30 ml PO Q6H PRN PRN Reason: Heartburn/Nausea Last Admin: 10/24/23 22:11 Dose: 30 ml Artificial Tears (Artificial Tears 15 Ml Drops) 1 drop EYE-BOTH Q4H PRN PRN Reason: Dry Eyes Last Admin: 10/27/23 03:31 Dose: 1 drop Benzocaine (Throat Lozenge, Medicated Lozenge) 1 lozenge MUCOUS MEM Q4H PRN PRN Reason: Sore Throat Brimonidine Tartrate (Brimonidine Tartrate 0.2% Oph 5 Ml Bottle) 1 drop EYE- BOTH TID [facility] Last Admin: 10/30/23 08:37 Dose: 1 drop Donepezil HCl (Donepezil Hcl 10 Mg Tablet) 10 mg PO BEDTIME [facility] Last Admin: 10/29/23 20:40 Dose: 10 mg Guaifenesin (Guaifenesin 200 Mg/10 Ml 10 Ml Liquid) 10 ml PO Q6H PRN PRN Reason: Cough Last Admin: 09/05/23 23:21 Dose: 10 ml Lidocaine (Lidocaine 4 % Patch Adh..Patch) 2 patch TRANSDERMA DAILY PRN; Protocol PRN Reason: bilateral low back pain Last Admin: 09/26/23 04:27 Dose: 2 patch Magnesium Hydroxide (Milk Of Magnesia 30 Ml Oral.Susp) 30 ml PO DAILY PRN PRN Reason: Constipation Last Admin: 08/23/23 08:41 Dose: 30 ml Memantine (Memantine Hcl 10 Mg Tablet) 10 mg PO BID [facility] Last Admin: 10/30/23 08:38 Dose: 10 mg Quetiapine Fumarate (Quetiapine Fumarate 25 Mg Tablet) 25 mg PO BID PRN PRN Reason: anxiety/agitation Last Admin: 10/28/23 23:54 Dose: 25 mg Quetiapine Fumarate (Quetiapine Fumarate 25 Mg Tablet) 25 mg PO DAILY@1700 [facility] Last Admin: 10/29/23 16:35 Dose: 25 mg Quetiapine Fumarate (Quetiapine Fumarate 25 Mg Tablet) 12.5 mg PO BID@0830,1330 [facility] Last Admin: 10/30/23 08:38 Dose: 12.5 mg Quetiapine Fumarate (Quetiapine Fumarate 50 Mg Tablet) 50 mg PO BEDTIME [facility] Last Admin: 10/29/23 20:40 Dose: 50 mg Sertraline HCl (Sertraline Hcl 25 Mg Tablet) 25 mg PO DAILY [facility] Last Admin: 10/30/23 08:38 Dose: 25 mg Sumatriptan Succinate (Sumatriptan Succinate 50 Mg Tablet) 50 mg PO DAILY MRX1 PRN PRN Reason: Migraine Headache Last Admin: 10/28/23 05:39 Dose: 50 mg Thiamine HCl (Thiamine Hcl 100 Mg Tablet) 100 mg PO DAILY [facility] Last Admin: 10/30/23 08:38 Dose: 100 mg Trazodone HCl (Trazodone Hcl 50 Mg Tablet) 50 mg PO BEDTIME MRX1 PRN PRN Reason: Insomnia Last Admin: 10/28/23 23:54 Dose: 50 mg Allergies Allergies Allergy/AdvReac Type Severity Reaction Status Date / Time Sulfa (Sulfonamide Allergy Severe ANAPHYLAXIS Verified 08/25/23 23:13 Antibiotics) [SULFA (SULFONAMIDE ANTIBIOTICS)] mold Allergy Intermediate Shortness Verified 08/25/23 22:42 of Breath Assessment & Plan Assessment & Plan (1) Alcohol abuse with alcohol-induced mental disorder: Status: Acute Code(s): F10.188 - Alcohol abuse with other alcohol-induced disorder Plan The patient is a 78-year-old male with a past history of alcohol use disorder who was brought to the emergency room of another hospital for psychotic symptoms at the this moment currently denies. 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 Plan 1. Continue with same treatment. 2. Waiting for placement. 3. After the family meeting, her son disclosed that he has been more anxious so we are going to start a low dose of SSRIs. Reason for continued inpatient stay Substantial Risk for: inability to function, rapid decompensation and med/psych decompensation Time Spent With Patient Time: Total time managing care of this patient today _20___ minutes.
[2023-10-30] MEDS: QUEtiapine Fumarate 25 MG TABLET PO ×2 (16:34→22:04)
[2023-10-30] MEDS: QUEtiapine Fumarate 50 MG TABLET PO (19:58)
[2023-10-30] MEDS: traZODone HCL 50 MG TABLET PO ×2 (19:58→22:04)
[2023-10-30] MEDS: Donepezil HCl 10 MG TABLET PO (19:58)
[2023-10-30] MEDS: SUMAtriptan succinate 50 MG TABLET PO (19:58)
[2023-10-30] MEDS: Magnesium Hydrox/Alum Hydrox 30 ML ORAL.SUSP PO (19:58)
[2023-10-30 20:00] VITALS: BP 136/72; PULSE 88; RESP 18; TEMP 36.7; O2SAT 93
[2023-10-31 08:00] VITALS: BP 115/61; PULSE 77; RESP 18; TEMP 36.4; O2SAT 94
[2023-10-31] MEDS: Sertraline HCL 25 MG TABLET PO (08:29)
[2023-10-31] MEDS: Brimonidine Tartrate 0.2% Oph 5 ML BOTTLE 1 DROP EYE-BOTH ×3 (08:29→20:08)
[2023-10-31] MEDS: Thiamine HCL 100 MG TABLET PO (08:30)
[2023-10-31] MEDS: QUEtiapine Fumarate 25 MG TABLET 12.5 MG PO ×2 (08:30→13:57)
[2023-10-31] MEDS: Memantine HCl 10 MG TABLET PO ×2 (08:30→20:05)
--- NOTE | 2023-10-31 14:06 | P.PNPSI_ITS ---
Subjective Subjective Date of Service: 10/31/23 Reason For Visit: Adjustment disorder,w/mixed disturbance of emotion Subjective Notes: Conditional Voluntary Interim History: The nursing staff reported the patient had been upset, he had been over the phone calling social security several times stating that there is identity theft. The staff also noticed that he remains as usual confused stating that he misplaced his car keys. On interview the patient remains confused unable to remember conversations before. Mental Status Exam Mental Status Exam Patient Appearance: Appropriate Patient Orientation: Person and Situation Level of Consciousness: Awake and Appropriate Patient Behavior: Guarded and Passive Mood Description: Withdrawn Affect Description: Constricted Patient Cognition Impaired: Yes Ability to Follow Directions: Good Speech Pattern: Clear Hallucinations: None Delusions: Paranoid Ideation and Ideas of Reference Thought Process: Distracted and Slowed Thinking Thought Content: positive for [place] and positive for Poverty of Content Judgement: Fair Diagnostics Vital Signs (24Hr): Vital Signs - 24 hr 10/30/23 20:00 10/31/23 08:00 Temperature 98.1 F 97.5 F Pulse Rate 88 77 Respiratory Rate 18 18 Blood Pressure 136/72 115/61 Pulse Oximetry 93 94 Oxygen Delivery Method Room Air Room Air BMI result Body Mass Index 23.8 Labs 10/16/23 16:18 10/16/23 16:18 Imaging Radiology Impressions: ITS Impressions Shoulder X-Ray 07/30/23 09:55 IMPRESSION: 1. No metallic foreign body. 2. Calcification adjacent to the humeral head likely on the basis of calcific tendinosis. Orbit X-Ray 07/30/23 11:07 IMPRESSION: 1. No unexpected radiopaque foreign bodies. 2. Clear lungs. 3. Nonobstructive bowel gas pattern. 4. Moderate to large degree of colonic stool burden. Brain MRI 07/30/23 20:40 IMPRESSION: No acute intracranial abnormality. No findings to suggest Wernicke encephalopathy. Hand X-Ray 08/26/23 09:05 IMPRESSION: No fracture seen. Medications Medications Current Medications Acetaminophen (Acetaminophen 325 Mg Tablet) 650 mg PO Q6H PRN PRN Reason: Headache/Pain (1-10) Last Admin: 10/29/23 03:39 Dose: 650 mg Al Hydroxide/Mg Hydroxide (Magnesium Hydrox/Alum Hydrox 30 Ml Oral.Susp) 30 ml PO Q6H PRN PRN Reason: Heartburn/Nausea Last Admin: 10/30/23 19:58 Dose: 30 ml Artificial Tears (Artificial Tears 15 Ml Drops) 1 drop EYE-BOTH Q4H PRN PRN Reason: Dry Eyes Last Admin: 10/27/23 03:31 Dose: 1 drop Benzocaine (Throat Lozenge, Medicated Lozenge) 1 lozenge MUCOUS MEM Q4H PRN PRN Reason: Sore Throat Brimonidine Tartrate (Brimonidine Tartrate 0.2% Oph 5 Ml Bottle) 1 drop EYE- BOTH TID [facility] Last Admin: 10/31/23 14:00 Dose: 1 drop Donepezil HCl (Donepezil Hcl 10 Mg Tablet) 10 mg PO BEDTIME [facility] Last Admin: 10/30/23 19:58 Dose: 10 mg Guaifenesin (Guaifenesin 200 Mg/10 Ml 10 Ml Liquid) 10 ml PO Q6H PRN PRN Reason: Cough Last Admin: 09/05/23 23:21 Dose: 10 ml Lidocaine (Lidocaine 4 % Patch Adh..Patch) 2 patch TRANSDERMA DAILY PRN; Protocol PRN Reason: bilateral low back pain Last Admin: 09/26/23 04:27 Dose: 2 patch Magnesium Hydroxide (Milk Of Magnesia 30 Ml Oral.Susp) 30 ml PO DAILY PRN PRN Reason: Constipation Last Admin: 08/23/23 08:41 Dose: 30 ml Memantine (Memantine Hcl 10 Mg Tablet) 10 mg PO BID [facility] Last Admin: 10/31/23 08:30 Dose: 10 mg Quetiapine Fumarate (Quetiapine Fumarate 25 Mg Tablet) 25 mg PO BID PRN PRN Reason: anxiety/agitation Last Admin: 10/30/23 22:04 Dose: 25 mg Quetiapine Fumarate (Quetiapine Fumarate 25 Mg Tablet) 25 mg PO DAILY@1700 [facility] Last Admin: 10/30/23 16:34 Dose: 25 mg Quetiapine Fumarate (Quetiapine Fumarate 25 Mg Tablet) 12.5 mg PO BID@0830,1330 [facility] Last Admin: 10/31/23 13:57 Dose: 12.5 mg Quetiapine Fumarate (Quetiapine Fumarate 50 Mg Tablet) 50 mg PO BEDTIME [facility] Last Admin: 10/30/23 19:58 Dose: 50 mg Sertraline HCl (Sertraline Hcl 25 Mg Tablet) 25 mg PO DAILY [facility] Last Admin: 10/31/23 08:29 Dose: 25 mg Sumatriptan Succinate (Sumatriptan Succinate 50 Mg Tablet) 50 mg PO DAILY MRX1 PRN PRN Reason: Migraine Headache Last Admin: 10/30/23 19:58 Dose: 50 mg Thiamine HCl (Thiamine Hcl 100 Mg Tablet) 100 mg PO DAILY [facility] Last Admin: 10/31/23 08:30 Dose: 100 mg Trazodone HCl (Trazodone Hcl 50 Mg Tablet) 50 mg PO BEDTIME MRX1 PRN PRN Reason: Insomnia Last Admin: 10/30/23 22:04 Dose: 50 mg Allergies Allergies Allergy/AdvReac Type Severity Reaction Status Date / Time Sulfa (Sulfonamide Allergy Severe ANAPHYLAXIS Verified 08/25/23 23:13 Antibiotics) [SULFA (SULFONAMIDE ANTIBIOTICS)] mold Allergy Intermediate Shortness Verified 08/25/23 22:42 of Breath Assessment & Plan Assessment & Plan (1) Alcohol abuse with alcohol-induced mental disorder: Status: Acute Code(s): F10.188 - Alcohol abuse with other alcohol-induced disorder Plan The patient is a 78-year-old male with a past history of alcohol use disorder who was brought to the emergency room of another hospital for psychotic symptoms at the this moment currently denies. 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 Plan 1. Continue with same treatment. 2. Waiting for placement. 3. After the family meeting, her son disclosed that he has been more anxious so we are going to start a low dose of SSRIs. Reason for continued inpatient stay Substantial Risk for: inability to function, rapid decompensation and med/psych decompensation Time Spent With Patient Time: Total time managing care of this patient today _20___ minutes.
[2023-10-31] MEDS: QUEtiapine Fumarate 25 MG TABLET PO ×2 (16:53→22:33)
[2023-10-31 20:00] VITALS: BP 139/81; PULSE 78; RESP 18; TEMP 36.6; O2SAT 96
[2023-10-31] MEDS: Donepezil HCl 10 MG TABLET PO (20:05)
[2023-10-31] MEDS: QUEtiapine Fumarate 50 MG TABLET PO (20:05)
[2023-10-31] MEDS: traZODone HCL 50 MG TABLET PO ×2 (20:06→22:33)
[2023-10-31] MEDS: Magnesium Hydrox/Alum Hydrox 30 ML ORAL.SUSP PO (20:44)
[2023-11-01 08:27] VITALS: BP 128/60; PULSE 79; RESP 16; TEMP 36.4; O2SAT 94
[2023-11-01] MEDS: Memantine HCl 10 MG TABLET PO ×2 (08:46→20:13)
[2023-11-01] MEDS: Sertraline HCL 25 MG TABLET PO (08:46)
[2023-11-01] MEDS: Thiamine HCL 100 MG TABLET PO (08:46)
[2023-11-01] MEDS: QUEtiapine Fumarate 25 MG TABLET 12.5 MG PO (08:46)
[2023-11-01] MEDS: Brimonidine Tartrate 0.2% Oph 5 ML BOTTLE 1 DROP EYE-BOTH ×3 (08:47→20:13)
--- NOTE | 2023-11-01 09:39 | HO.PSYCHPN ---
Subjective Subjective Date of Service: 11/01/23 Reason For Visit: Adjustment disorder,w/mixed disturbance of emotion Subjective Notes: Conditional Voluntary Interim History: The nursing staff reported no changes in his mental status still confused. She complained of anxiety and he received milk of magnesia. Slept well. On interview the patient denies new symptoms, waiting for placement. Mental Status Exam Mental Status Exam Patient Appearance: Well Grooomed and Appropriate Patient Orientation: Person and Situation Level of Consciousness: Awake and Appropriate Patient Behavior: Guarded and Passive Mood Description: Withdrawn Affect Description: Constricted Patient Cognition Impaired: Yes Ability to Follow Directions: Good Speech Pattern: Clear Hallucinations: None Delusions: Ideas of Reference Thought Process: Distracted and Slowed Thinking Thought Content: positive for [place] and positive for Poverty of Content Judgement: Fair Diagnostics Vital Signs (24Hr): Vital Signs - 24 hr 10/31/23 20:00 11/01/23 08:27 Temperature 98 F 97.5 F Pulse Rate 78 79 Respiratory Rate 18 16 Blood Pressure 139/81 128/60 Pulse Oximetry 96 94 Oxygen Delivery Method Room Air Room Air BMI result Body Mass Index 23.8 Labs 10/16/23 16:18 10/16/23 16:18 Imaging Radiology Impressions: ITS Impressions Shoulder X-Ray 07/30/23 09:55 IMPRESSION: 1. No metallic foreign body. 2. Calcification adjacent to the humeral head likely on the basis of calcific tendinosis. Orbit X-Ray 07/30/23 11:07 IMPRESSION: 1. No unexpected radiopaque foreign bodies. 2. Clear lungs. 3. Nonobstructive bowel gas pattern. 4. Moderate to large degree of colonic stool burden. Brain MRI 07/30/23 20:40 IMPRESSION: No acute intracranial abnormality. No findings to suggest Wernicke encephalopathy. Hand X-Ray 08/26/23 09:05 IMPRESSION: No fracture seen. Medications Medications Current Medications Acetaminophen (Acetaminophen 325 Mg Tablet) 650 mg PO Q6H PRN PRN Reason: Headache/Pain (1-10) Last Admin: 10/29/23 03:39 Dose: 650 mg Al Hydroxide/Mg Hydroxide (Magnesium Hydrox/Alum Hydrox 30 Ml Oral.Susp) 30 ml PO Q6H PRN PRN Reason: Heartburn/Nausea Last Admin: 10/31/23 20:44 Dose: 30 ml Artificial Tears (Artificial Tears 15 Ml Drops) 1 drop EYE-BOTH Q4H PRN PRN Reason: Dry Eyes Last Admin: 10/27/23 03:31 Dose: 1 drop Benzocaine (Throat Lozenge, Medicated Lozenge) 1 lozenge MUCOUS MEM Q4H PRN PRN Reason: Sore Throat Brimonidine Tartrate (Brimonidine Tartrate 0.2% Oph 5 Ml Bottle) 1 drop EYE-BOTH TID [facility] Last Admin: 11/01/23 08:47 Dose: 1 drop Donepezil HCl (Donepezil Hcl 10 Mg Tablet) 10 mg PO BEDTIME [facility] Last Admin: 10/31/23 20:05 Dose: 10 mg Guaifenesin (Guaifenesin 200 Mg/10 Ml 10 Ml Liquid) 10 ml PO Q6H PRN PRN Reason: Cough Last Admin: 09/05/23 23:21 Dose: 10 ml Lidocaine (Lidocaine 4 % Patch Adh..Patch) 2 patch TRANSDERMA DAILY PRN; Protocol PRN Reason: bilateral low back pain Last Admin: 09/26/23 04:27 Dose: 2 patch Magnesium Hydroxide (Milk Of Magnesia 30 Ml Oral.Susp) 30 ml PO DAILY PRN PRN Reason: Constipation Last Admin: 08/23/23 08:41 Dose: 30 ml Memantine (Memantine Hcl 10 Mg Tablet) 10 mg PO BID [facility] Last Admin: 11/01/23 08:46 Dose: 10 mg Quetiapine Fumarate (Quetiapine Fumarate 25 Mg Tablet) 25 mg PO BID PRN PRN Reason: anxiety/agitation Last Admin: 10/31/23 22:33 Dose: 25 mg Quetiapine Fumarate (Quetiapine Fumarate 25 Mg Tablet) 25 mg PO DAILY@1700 [facility] Last Admin: 10/31/23 16:53 Dose: 25 mg Quetiapine Fumarate (Quetiapine Fumarate 25 Mg Tablet) 12.5 mg PO BID@0830,1330 [facility] Last Admin: 11/01/23 08:46 Dose: 12.5 mg Quetiapine Fumarate (Quetiapine Fumarate 50 Mg Tablet) 50 mg PO BEDTIME [facility] Last Admin: 10/31/23 20:05 Dose: 50 mg Sertraline HCl (Sertraline Hcl 25 Mg Tablet) 25 mg PO DAILY [facility] Last Admin: 11/01/23 08:46 Dose: 25 mg Sumatriptan Succinate (Sumatriptan Succinate 50 Mg Tablet) 50 mg PO DAILY MRX1 PRN PRN Reason: Migraine Headache Last Admin: 10/30/23 19:58 Dose: 50 mg Thiamine HCl (Thiamine Hcl 100 Mg Tablet) 100 mg PO DAILY [facility] Last Admin: 11/01/23 08:46 Dose: 100 mg Trazodone HCl (Trazodone Hcl 50 Mg Tablet) 50 mg PO BEDTIME MRX1 PRN PRN Reason: Insomnia Last Admin: 10/31/23 22:33 Dose: 50 mg Allergies Allergies Allergy/AdvReac Type Severity Reaction Status Date / Time Sulfa (Sulfonamide Allergy Severe ANAPHYLAXIS Verified 08/25/23 23:13 Antibiotics) [SULFA (SULFONAMIDE ANTIBIOTICS)] mold Allergy Intermediate Shortness Verified 08/25/23 22:42 of Breath Assessment & Plan Assessment & Plan (1) Alcohol abuse with alcohol-induced mental disorder: Status: Acute Code(s): F10.188 - Alcohol abuse with other alcohol-induced disorder Plan The patient is a 78-year-old male with a past history of alcohol use disorder who was brought to the emergency room of another hospital for psychotic symptoms at the this moment currently denies. 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 Plan 1. Continue with same treatment. 2. Waiting for placement. 3. After the family meeting, her son disclosed that he has been more anxious so we are going to start a low dose of SSRIs. Reason for continued inpatient stay Substantial Risk for: inability to function, rapid decompensation and med/psych decompensation Time Spent With Patient Time: Total time managing care of this patient today __20__ minutes.
[2023-11-01] MEDS: Acetaminophen 325 MG TABLET 650 MG PO (10:11)
[2023-11-01] MEDS: QUEtiapine Fumarate 25 MG TABLET PO (16:00)
[2023-11-01 20:00] VITALS: BP 149/67; PULSE 75; RESP 18; TEMP 36.9; O2SAT 96
[2023-11-01] MEDS: traZODone HCL 50 MG TABLET PO (20:13)
[2023-11-01] MEDS: Donepezil HCl 10 MG TABLET PO (20:13)
[2023-11-01] MEDS: QUEtiapine Fumarate 50 MG TABLET PO (20:13)
[2023-11-02 08:25] VITALS: BP 142/68; PULSE 86; RESP 18; TEMP 36.7; O2SAT 96
[2023-11-02] MEDS: Memantine HCl 10 MG TABLET PO ×2 (08:35→20:54)
[2023-11-02] MEDS: Sertraline HCL 25 MG TABLET PO (08:36)
[2023-11-02] MEDS: Thiamine HCL 100 MG TABLET PO (08:36)
[2023-11-02] MEDS: QUEtiapine Fumarate 25 MG TABLET 12.5 MG PO ×2 (08:36→13:11)
[2023-11-02] MEDS: Brimonidine Tartrate 0.2% Oph 5 ML BOTTLE 1 DROP EYE-BOTH ×3 (08:36→20:55)
--- NOTE | 2023-11-02 10:44 | P.PNPSI_ITS ---
Subjective Subjective Date of Service: 11/02/23 Reason For Visit: Adjustment disorder,w/mixed disturbance of emotion Subjective Notes: Conditional Voluntary Guardianship: Yes Interim History: The nursing staff reported the patient had being irritable pacing at night, he does not want to go to placement. On interview the patient could not remember the previous discussion of yesterday. Mental Status Exam Mental Status Exam Patient Appearance: Appropriate Patient Orientation: Person and Situation Level of Consciousness: Awake Patient Behavior: Guarded and Passive Mood Description: Withdrawn Affect Description: Constricted Patient Cognition Impaired: Yes Ability to Follow Directions: Fair Speech Pattern: Clear Hallucinations: None Delusions: Not Present Thought Process: Distracted and Slowed Thinking Thought Content: positive for [place] and positive for Poverty of Content Judgement: Poor Diagnostics Vital Signs (24Hr): Vital Signs - 24 hr 11/01/23 20:00 11/02/23 08:25 Temperature 98.4 F 98.1 F Pulse Rate 75 86 Respiratory Rate 18 18 Blood Pressure 149/67 H 142/68 H Pulse Oximetry 96 96 Oxygen Delivery Method Room Air Room Air BMI result Body Mass Index 23.8 Labs 10/16/23 16:18 10/16/23 16:18 Imaging Radiology Impressions: ITS Impressions Shoulder X-Ray 07/30/23 09:55 IMPRESSION: 1. No metallic foreign body. 2. Calcification adjacent to the humeral head likely on the basis of calcific tendinosis. Orbit X-Ray 07/30/23 11:07 IMPRESSION: 1. No unexpected radiopaque foreign bodies. 2. Clear lungs. 3. Nonobstructive bowel gas pattern. 4. Moderate to large degree of colonic stool burden. Brain MRI 07/30/23 20:40 IMPRESSION: No acute intracranial abnormality. No findings to suggest Wernicke encephalopathy. Hand X-Ray 08/26/23 09:05 IMPRESSION: No fracture seen. Medications Medications Current Medications Acetaminophen (Acetaminophen 325 Mg Tablet) 650 mg PO Q6H PRN PRN Reason: Headache/Pain (1-10) Last Admin: 11/01/23 10:11 Dose: 650 mg Al Hydroxide/Mg Hydroxide (Magnesium Hydrox/Alum Hydrox 30 Ml Oral.Susp) 30 ml PO Q6H PRN PRN Reason: Heartburn/Nausea Last Admin: 10/31/23 20:44 Dose: 30 ml Artificial Tears (Artificial Tears 15 Ml Drops) 1 drop EYE-BOTH Q4H PRN PRN Reason: Dry Eyes Last Admin: 10/27/23 03:31 Dose: 1 drop Benzocaine (Throat Lozenge, Medicated Lozenge) 1 lozenge MUCOUS MEM Q4H PRN PRN Reason: Sore Throat Brimonidine Tartrate (Brimonidine Tartrate 0.2% Oph 5 Ml Bottle) 1 drop EYE- BOTH TID [facility] Last Admin: 11/02/23 08:36 Dose: 1 drop Donepezil HCl (Donepezil Hcl 10 Mg Tablet) 10 mg PO BEDTIME [facility] Last Admin: 11/01/23 20:13 Dose: 10 mg Guaifenesin (Guaifenesin 200 Mg/10 Ml 10 Ml Liquid) 10 ml PO Q6H PRN PRN Reason: Cough Last Admin: 09/05/23 23:21 Dose: 10 ml Lidocaine (Lidocaine 4 % Patch Adh..Patch) 2 patch TRANSDERMA DAILY PRN; Protocol PRN Reason: bilateral low back pain Last Admin: 09/26/23 04:27 Dose: 2 patch Magnesium Hydroxide (Milk Of Magnesia 30 Ml Oral.Susp) 30 ml PO DAILY PRN PRN Reason: Constipation Last Admin: 08/23/23 08:41 Dose: 30 ml Memantine (Memantine Hcl 10 Mg Tablet) 10 mg PO BID [facility] Last Admin: 11/02/23 08:35 Dose: 10 mg Quetiapine Fumarate (Quetiapine Fumarate 25 Mg Tablet) 25 mg PO BID PRN PRN Reason: anxiety/agitation Last Admin: 10/31/23 22:33 Dose: 25 mg Quetiapine Fumarate (Quetiapine Fumarate 25 Mg Tablet) 25 mg PO DAILY@1700 [facility] Last Admin: 11/01/23 16:00 Dose: 25 mg Quetiapine Fumarate (Quetiapine Fumarate 25 Mg Tablet) 12.5 mg PO BID@0830,1330 [facility] Last Admin: 11/02/23 08:36 Dose: 12.5 mg Quetiapine Fumarate (Quetiapine Fumarate 50 Mg Tablet) 50 mg PO BEDTIME [facility] Last Admin: 11/01/23 20:13 Dose: 50 mg Sertraline HCl (Sertraline Hcl 25 Mg Tablet) 25 mg PO DAILY [facility] Last Admin: 11/02/23 08:36 Dose: 25 mg Sumatriptan Succinate (Sumatriptan Succinate 50 Mg Tablet) 50 mg PO DAILY MRX1 PRN PRN Reason: Migraine Headache Last Admin: 10/30/23 19:58 Dose: 50 mg Thiamine HCl (Thiamine Hcl 100 Mg Tablet) 100 mg PO DAILY [facility] Last Admin: 11/02/23 08:36 Dose: 100 mg Trazodone HCl (Trazodone Hcl 50 Mg Tablet) 50 mg PO BEDTIME MRX1 PRN PRN Reason: Insomnia Last Admin: 11/01/23 20:13 Dose: 50 mg Allergies Allergies Allergy/AdvReac Type Severity Reaction Status Date / Time Sulfa (Sulfonamide Allergy Severe ANAPHYLAXIS Verified 08/25/23 23:13 Antibiotics) [SULFA (SULFONAMIDE ANTIBIOTICS)] mold Allergy Intermediate Shortness Verified 08/25/23 22:42 of Breath Assessment & Plan Assessment & Plan (1) Alcohol abuse with alcohol-induced mental disorder: Status: Acute Code(s): F10.188 - Alcohol abuse with other alcohol-induced disorder Plan The patient is a 78-year-old male with a past history of alcohol use disorder who was brought to the emergency room of another hospital for psychotic symptoms at the this moment currently denies. 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 Plan 1. Continue with same treatment. 2. Waiting for placement. 3. After the family meeting, her son disclosed that he has been more anxious so we are going to start a low dose of SSRIs. 4. Increase Seroquel in the afternoon Reason for continued inpatient stay Substantial Risk for: inability to function, rapid decompensation and med/psych decompensation Time Spent With Patient Time: Total time managing care of this patient today __20__ minutes.
[2023-11-02] MEDS: SUMAtriptan succinate 50 MG TABLET PO (14:24)
[2023-11-02] MEDS: QUEtiapine Fumarate 50 MG TABLET PO ×2 (17:59→20:54)
[2023-11-02] MEDS: Magnesium Hydrox/Alum Hydrox 30 ML ORAL.SUSP PO (19:02)
[2023-11-02 20:00] VITALS: BP 120/65; PULSE 82; RESP 18; TEMP 36.4; O2SAT 95
[2023-11-02] MEDS: traZODone HCL 50 MG TABLET PO (20:54)
[2023-11-02] MEDS: Donepezil HCl 10 MG TABLET PO (20:54)
[2023-11-03 08:54] VITALS: BP 139/65; PULSE 84; RESP 16; TEMP 36.9; O2SAT 96
[2023-11-03] MEDS: Sertraline HCL 25 MG TABLET PO (08:55)
[2023-11-03] MEDS: Thiamine HCL 100 MG TABLET PO (08:55)
[2023-11-03] MEDS: Memantine HCl 10 MG TABLET PO ×2 (08:56→20:26)
[2023-11-03] MEDS: QUEtiapine Fumarate 25 MG TABLET 12.5 MG PO ×2 (08:56→13:59)
[2023-11-03] MEDS: Brimonidine Tartrate 0.2% Oph 5 ML BOTTLE 1 DROP EYE-BOTH ×3 (08:57→20:26)
--- NOTE | 2023-11-03 15:38 | HO.PSYCHPN ---
Subjective Subjective Date of Service: 11/03/23 Reason For Visit: Adjustment disorder,w/mixed disturbance of emotion Subjective Notes: Conditional Voluntary Interim History: The nursing staff reported no changes in his mental status poor short-term memory. Interview the patient denies new symptoms, waiting for placement. Mental Status Exam Mental Status Exam Patient Appearance: Appropriate Patient Orientation: Person and Situation Level of Consciousness: Awake and Appropriate Patient Behavior: Guarded and Passive Mood Description: Withdrawn Affect Description: Constricted Patient Cognition Impaired: Yes Ability to Follow Directions: Good Speech Pattern: Clear Hallucinations: None Delusions: Ideas of Reference Thought Process: Distracted and Slowed Thinking Thought Content: positive for [place] and positive for Poverty of Content Judgement: Fair Diagnostics Vital Signs (24Hr): Vital Signs - 24 hr 11/02/23 20:00 11/03/23 08:54 Temperature 97.6 F 98.4 F Pulse Rate 82 84 Respiratory Rate 18 16 Blood Pressure 120/65 139/65 Pulse Oximetry 95 96 Oxygen Delivery Method Room Air Room Air BMI result Body Mass Index 23.8 Labs 10/16/23 16:18 10/16/23 16:18 Imaging Radiology Impressions: ITS Impressions Shoulder X-Ray 07/30/23 09:55 IMPRESSION: 1. No metallic foreign body. 2. Calcification adjacent to the humeral head likely on the basis of calcific tendinosis. Orbit X-Ray 07/30/23 11:07 IMPRESSION: 1. No unexpected radiopaque foreign bodies. 2. Clear lungs. 3. Nonobstructive bowel gas pattern. 4. Moderate to large degree of colonic stool burden. Brain MRI 07/30/23 20:40 IMPRESSION: No acute intracranial abnormality. No findings to suggest Wernicke encephalopathy. Hand X-Ray 08/26/23 09:05 IMPRESSION: No fracture seen. Medications Medications Current Medications Acetaminophen (Acetaminophen 325 Mg Tablet) 650 mg PO Q6H PRN PRN Reason: Headache/Pain (1-10) Last Admin: 11/01/23 10:11 Dose: 650 mg Al Hydroxide/Mg Hydroxide (Magnesium Hydrox/Alum Hydrox 30 Ml Oral.Susp) 30 ml PO Q6H PRN PRN Reason: Heartburn/Nausea Last Admin: 11/02/23 19:02 Dose: 30 ml Artificial Tears (Artificial Tears 15 Ml Drops) 1 drop EYE-BOTH Q4H PRN PRN Reason: Dry Eyes Last Admin: 10/27/23 03:31 Dose: 1 drop Benzocaine (Throat Lozenge, Medicated Lozenge) 1 lozenge MUCOUS MEM Q4H PRN PRN Reason: Sore Throat Brimonidine Tartrate (Brimonidine Tartrate 0.2% Oph 5 Ml Bottle) 1 drop EYE-BOTH TID [facility] Last Admin: 11/03/23 14:46 Dose: 1 drop Donepezil HCl (Donepezil Hcl 10 Mg Tablet) 10 mg PO BEDTIME [facility] Last Admin: 11/02/23 20:54 Dose: 10 mg Guaifenesin (Guaifenesin 200 Mg/10 Ml 10 Ml Liquid) 10 ml PO Q6H PRN PRN Reason: Cough Last Admin: 09/05/23 23:21 Dose: 10 ml Lidocaine (Lidocaine 4 % Patch Adh..Patch) 2 patch TRANSDERMA DAILY PRN; Protocol PRN Reason: bilateral low back pain Last Admin: 09/26/23 04:27 Dose: 2 patch Magnesium Hydroxide (Milk Of Magnesia 30 Ml Oral.Susp) 30 ml PO DAILY PRN PRN Reason: Constipation Last Admin: 08/23/23 08:41 Dose: 30 ml Memantine (Memantine Hcl 10 Mg Tablet) 10 mg PO BID [facility] Last Admin: 11/03/23 08:56 Dose: 10 mg Quetiapine Fumarate (Quetiapine Fumarate 25 Mg Tablet) 25 mg PO BID PRN PRN Reason: anxiety/agitation Last Admin: 10/31/23 22:33 Dose: 25 mg Quetiapine Fumarate (Quetiapine Fumarate 25 Mg Tablet) 12.5 mg PO BID@0830,1330 [facility] Last Admin: 11/03/23 13:59 Dose: 12.5 mg Quetiapine Fumarate (Quetiapine Fumarate 50 Mg Tablet) 50 mg PO BEDTIME [facility] Last Admin: 11/02/23 20:54 Dose: 50 mg Quetiapine Fumarate (Quetiapine Fumarate 50 Mg Tablet) 50 mg PO DAILY@1700 [facility] Last Admin: 11/02/23 17:59 Dose: 50 mg Sertraline HCl (Sertraline Hcl 25 Mg Tablet) 25 mg PO DAILY [facility] Last Admin: 11/03/23 08:55 Dose: 25 mg Sumatriptan Succinate (Sumatriptan Succinate 50 Mg Tablet) 50 mg PO DAILY MRX1 PRN PRN Reason: Migraine Headache Last Admin: 11/02/23 14:24 Dose: 50 mg Thiamine HCl (Thiamine Hcl 100 Mg Tablet) 100 mg PO DAILY [facility] Last Admin: 11/03/23 08:55 Dose: 100 mg Trazodone HCl (Trazodone Hcl 50 Mg Tablet) 50 mg PO BEDTIME MRX1 PRN PRN Reason: Insomnia Last Admin: 11/02/23 20:54 Dose: 50 mg Allergies Allergies Allergy/AdvReac Type Severity Reaction Status Date / Time Sulfa (Sulfonamide Allergy Severe ANAPHYLAXIS Verified 08/25/23 23:13 Antibiotics) [SULFA (SULFONAMIDE ANTIBIOTICS)] mold Allergy Intermediate Shortness Verified 08/25/23 22:42 of Breath Assessment & Plan Assessment & Plan (1) Alcohol abuse with alcohol-induced mental disorder: Status: Acute Code(s): F10.188 - Alcohol abuse with other alcohol-induced disorder Plan The patient is a 78-year-old male with a past history of alcohol use disorder who was brought to the emergency room of another hospital for psychotic symptoms at the this moment currently denies. 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 Plan 1. Continue with same treatment. 2. Waiting for placement. 3. After the family meeting, her son disclosed that he has been more anxious so we are going to start a low dose of SSRIs. 4. Increase Seroquel in the afternoon Reason for continued inpatient stay Substantial Risk for: inability to function, rapid decompensation and med/psych decompensation Time Spent With Patient Time: Total time managing care of this patient today __20__ minutes.
[2023-11-03] MEDS: QUEtiapine Fumarate 50 MG TABLET PO ×2 (17:33→20:26)
[2023-11-03] MEDS: Artificial Tears 15 ML DROPS 1 DROP EYE-BOTH (18:01)
[2023-11-03 20:00] VITALS: BP 143/65; PULSE 84; RESP 18; TEMP 36.7; O2SAT 95
[2023-11-03] MEDS: Donepezil HCl 10 MG TABLET PO (20:26)
[2023-11-03] MEDS: traZODone HCL 50 MG TABLET PO ×2 (20:26→21:26)
[2023-11-04 08:00] VITALS: BP 120/56; PULSE 80; RESP 18; TEMP 36.6; O2SAT 96
[2023-11-04] MEDS: QUEtiapine Fumarate 25 MG TABLET 12.5 MG PO ×2 (08:40→13:56)
[2023-11-04] MEDS: Sertraline HCL 25 MG TABLET PO (08:41)
[2023-11-04] MEDS: Brimonidine Tartrate 0.2% Oph 5 ML BOTTLE 1 DROP EYE-BOTH ×3 (08:41→20:00)
[2023-11-04] MEDS: Memantine HCl 10 MG TABLET PO ×2 (08:41→20:01)
[2023-11-04] MEDS: Thiamine HCL 100 MG TABLET PO (08:41)
--- NOTE | 2023-11-04 12:38 | P.PNPSI_ITS ---
Subjective Subjective Date of Service: 11/04/23 Reason For Visit: Adjustment disorder,w/mixed disturbance of emotion Subjective Notes: Conditional Voluntary Interim History: The nursing staff reported that the patient is compliant with treatment, no evidence of oversedation after increase of Seroquel recently. On interview, pleasantly confused, with poor short term memory. Mental Status Exam Mental Status Exam Patient Appearance: Well Grooomed and Appropriate Patient Orientation: Person and Situation Level of Consciousness: Awake Patient Behavior: Guarded and Passive Mood Description: Withdrawn Affect Description: Constricted Patient Cognition Impaired: Yes Ability to Follow Directions: Good Speech Pattern: Clear Hallucinations: None Delusions: Not Present Thought Process: Distracted and Slowed Thinking Thought Content: positive for [place] and positive for Poverty of Content Judgement: Poor Diagnostics Vital Signs (24Hr): Vital Signs - 24 hr 11/03/23 20:00 11/04/23 08:00 Temperature 98.1 F 97.9 F Pulse Rate 84 80 Respiratory Rate 18 18 Blood Pressure 143/65 H 120/56 L Pulse Oximetry 95 96 Oxygen Delivery Method Room Air Room Air BMI result Body Mass Index 23.8 Labs 10/16/23 16:18 10/16/23 16:18 Imaging Radiology Impressions: ITS Impressions Shoulder X-Ray 07/30/23 09:55 IMPRESSION: 1. No metallic foreign body. 2. Calcification adjacent to the humeral head likely on the basis of calcific tendinosis. Orbit X-Ray 07/30/23 11:07 IMPRESSION: 1. No unexpected radiopaque foreign bodies. 2. Clear lungs. 3. Nonobstructive bowel gas pattern. 4. Moderate to large degree of colonic stool burden. Brain MRI 07/30/23 20:40 IMPRESSION: No acute intracranial abnormality. No findings to suggest Wernicke encephalopathy. Hand X-Ray 08/26/23 09:05 IMPRESSION: No fracture seen. Medications Medications Current Medications Acetaminophen (Acetaminophen 325 Mg Tablet) 650 mg PO Q6H PRN PRN Reason: Headache/Pain (1-10) Last Admin: 11/01/23 10:11 Dose: 650 mg Al Hydroxide/Mg Hydroxide (Magnesium Hydrox/Alum Hydrox 30 Ml Oral.Susp) 30 ml PO Q6H PRN PRN Reason: Heartburn/Nausea Last Admin: 11/02/23 19:02 Dose: 30 ml Artificial Tears (Artificial Tears 15 Ml Drops) 1 drop EYE-BOTH Q4H PRN PRN Reason: Dry Eyes Last Admin: 11/03/23 18:01 Dose: 1 drop Benzocaine (Throat Lozenge, Medicated Lozenge) 1 lozenge MUCOUS MEM Q4H PRN PRN Reason: Sore Throat Brimonidine Tartrate (Brimonidine Tartrate 0.2% Oph 5 Ml Bottle) 1 drop EYE- BOTH TID [facility] Last Admin: 11/04/23 08:41 Dose: 1 drop Donepezil HCl (Donepezil Hcl 10 Mg Tablet) 10 mg PO BEDTIME [facility] Last Admin: 11/03/23 20:26 Dose: 10 mg Guaifenesin (Guaifenesin 200 Mg/10 Ml 10 Ml Liquid) 10 ml PO Q6H PRN PRN Reason: Cough Last Admin: 09/05/23 23:21 Dose: 10 ml Lidocaine (Lidocaine 4 % Patch Adh..Patch) 2 patch TRANSDERMA DAILY PRN; Protocol PRN Reason: bilateral low back pain Last Admin: 09/26/23 04:27 Dose: 2 patch Magnesium Hydroxide (Milk Of Magnesia 30 Ml Oral.Susp) 30 ml PO DAILY PRN PRN Reason: Constipation Last Admin: 08/23/23 08:41 Dose: 30 ml Memantine (Memantine Hcl 10 Mg Tablet) 10 mg PO BID [facility] Last Admin: 11/04/23 08:41 Dose: 10 mg Quetiapine Fumarate (Quetiapine Fumarate 25 Mg Tablet) 25 mg PO BID PRN PRN Reason: anxiety/agitation Last Admin: 10/31/23 22:33 Dose: 25 mg Quetiapine Fumarate (Quetiapine Fumarate 25 Mg Tablet) 12.5 mg PO BID@0830,1330 [facility] Last Admin: 11/04/23 08:40 Dose: 12.5 mg Quetiapine Fumarate (Quetiapine Fumarate 50 Mg Tablet) 50 mg PO BEDTIME [facility] Last Admin: 11/03/23 20:26 Dose: 50 mg Quetiapine Fumarate (Quetiapine Fumarate 50 Mg Tablet) 50 mg PO DAILY@1700 [facility] Last Admin: 11/03/23 17:33 Dose: 50 mg Sertraline HCl (Sertraline Hcl 25 Mg Tablet) 25 mg PO DAILY [facility] Last Admin: 11/04/23 08:41 Dose: 25 mg Sumatriptan Succinate (Sumatriptan Succinate 50 Mg Tablet) 50 mg PO DAILY MRX1 PRN PRN Reason: Migraine Headache Last Admin: 11/02/23 14:24 Dose: 50 mg Thiamine HCl (Thiamine Hcl 100 Mg Tablet) 100 mg PO DAILY [facility] Last Admin: 11/04/23 08:41 Dose: 100 mg Trazodone HCl (Trazodone Hcl 50 Mg Tablet) 50 mg PO BEDTIME MRX1 PRN PRN Reason: Insomnia Last Admin: 11/03/23 21:26 Dose: 50 mg Allergies Allergies Allergy/AdvReac Type Severity Reaction Status Date / Time Sulfa (Sulfonamide Allergy Severe ANAPHYLAXIS Verified 08/25/23 23:13 Antibiotics) [SULFA (SULFONAMIDE ANTIBIOTICS)] mold Allergy Intermediate Shortness Verified 08/25/23 22:42 of Breath Assessment & Plan Assessment & Plan (1) Alcohol abuse with alcohol-induced mental disorder: Status: Acute Code(s): F10.188 - Alcohol abuse with other alcohol-induced disorder Plan The patient is a 78-year-old male with a past history of alcohol use disorder who was brought to the emergency room of another hospital for psychotic symptoms at the this moment currently denies. 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 Plan 1. Continue with same treatment. 2. Waiting for placement. 3. After the family meeting, her son disclosed that he has been more anxious so we are going to start a low dose of SSRIs. 4. Increase Seroquel in the afternoon Reason for continued inpatient stay Substantial Risk for: inability to function, rapid decompensation and med/psych decompensation Time Spent With Patient Time: Total time managing care of this patient today __20__ minutes.
[2023-11-04] MEDS: Acetaminophen 325 MG TABLET 650 MG PO (15:23)
[2023-11-04 16:03] VITALS: BP 131/77; PULSE 63; RESP 16; O2SAT 95
[2023-11-04] MEDS: QUEtiapine Fumarate 50 MG TABLET PO ×2 (17:22→20:01)
[2023-11-04 19:57] VITALS: BP 125/67; PULSE 81; RESP 18; TEMP 36.3; O2SAT 96
[2023-11-04] MEDS: traZODone HCL 50 MG TABLET PO (20:00)
[2023-11-04] MEDS: Donepezil HCl 10 MG TABLET PO (20:01)
[2023-11-05 08:13] VITALS: BP 143/74; PULSE 90; RESP 18; TEMP 36.7; O2SAT 94
[2023-11-05] MEDS: Sertraline HCL 25 MG TABLET PO (08:28)
[2023-11-05] MEDS: QUEtiapine Fumarate 25 MG TABLET 12.5 MG PO ×2 (08:28→14:21)
[2023-11-05] MEDS: Brimonidine Tartrate 0.2% Oph 5 ML BOTTLE 1 DROP EYE-BOTH ×3 (08:28→20:06)
[2023-11-05] MEDS: Thiamine HCL 100 MG TABLET PO (08:28)
[2023-11-05] MEDS: Memantine HCl 10 MG TABLET PO ×2 (08:28→20:06)
--- NOTE | 2023-11-05 12:39 | HO.PSYCHPN ---
Subjective Subjective Date of Service: 11/05/23 Reason For Visit: Adjustment disorder,w/mixed disturbance of emotion Subjective Notes: Conditional Voluntary Interim History: The nursing staff reported no changes in his mental status anxious at times. Slept 8 hours. On interview the patient denies new symptoms waiting for placement. Mental Status Exam Mental Status Exam Patient Appearance: Appropriate Patient Orientation: Person and Situation Level of Consciousness: Awake and Appropriate Patient Behavior: Guarded and Passive Mood Description: Withdrawn Affect Description: Constricted Patient Cognition Impaired: Yes Ability to Follow Directions: Good Speech Pattern: Clear Hallucinations: None Delusions: Not Present Thought Process: Distracted and Slowed Thinking Thought Content: positive for [place] and positive for Poverty of Content Judgement: Fair Diagnostics Vital Signs (24Hr): Vital Signs - 24 hr 11/04/23 16:03 11/04/23 19:57 11/05/23 08:13 Temperature 97.4 F 98.1 F Pulse Rate 63 81 90 Respiratory Rate 16 18 18 Blood Pressure 131/77 125/67 143/74 H Pulse Oximetry 95 96 94 Oxygen Delivery Method Room Air Room Air Room Air BMI result Body Mass Index 23.8 Labs 10/16/23 16:18 10/16/23 16:18 Imaging Radiology Impressions: ITS Impressions Shoulder X-Ray 07/30/23 09:55 IMPRESSION: 1. No metallic foreign body. 2. Calcification adjacent to the humeral head likely on the basis of calcific tendinosis. Orbit X-Ray 07/30/23 11:07 IMPRESSION: 1. No unexpected radiopaque foreign bodies. 2. Clear lungs. 3. Nonobstructive bowel gas pattern. 4. Moderate to large degree of colonic stool burden. Brain MRI 07/30/23 20:40 IMPRESSION: No acute intracranial abnormality. No findings to suggest Wernicke encephalopathy. Hand X-Ray 08/26/23 09:05 IMPRESSION: No fracture seen. Medications Medications Current Medications Acetaminophen (Acetaminophen 325 Mg Tablet) 650 mg PO Q6H PRN PRN Reason: Headache/Pain (1-10) Last Admin: 11/04/23 15:23 Dose: 650 mg Al Hydroxide/Mg Hydroxide (Magnesium Hydrox/Alum Hydrox 30 Ml Oral.Susp) 30 ml PO Q6H PRN PRN Reason: Heartburn/Nausea Last Admin: 11/02/23 19:02 Dose: 30 ml Artificial Tears (Artificial Tears 15 Ml Drops) 1 drop EYE-BOTH Q4H PRN PRN Reason: Dry Eyes Last Admin: 11/03/23 18:01 Dose: 1 drop Benzocaine (Throat Lozenge, Medicated Lozenge) 1 lozenge MUCOUS MEM Q4H PRN PRN Reason: Sore Throat Brimonidine Tartrate (Brimonidine Tartrate 0.2% Oph 5 Ml Bottle) 1 drop EYE-BOTH TID [facility] Last Admin: 11/05/23 08:28 Dose: 1 drop Donepezil HCl (Donepezil Hcl 10 Mg Tablet) 10 mg PO BEDTIME [facility] Last Admin: 11/04/23 20:01 Dose: 10 mg Guaifenesin (Guaifenesin 200 Mg/10 Ml 10 Ml Liquid) 10 ml PO Q6H PRN PRN Reason: Cough Last Admin: 09/05/23 23:21 Dose: 10 ml Lidocaine (Lidocaine 4 % Patch Adh..Patch) 2 patch TRANSDERMA DAILY PRN; Protocol PRN Reason: bilateral low back pain Last Admin: 09/26/23 04:27 Dose: 2 patch Magnesium Hydroxide (Milk Of Magnesia 30 Ml Oral.Susp) 30 ml PO DAILY PRN PRN Reason: Constipation Last Admin: 08/23/23 08:41 Dose: 30 ml Memantine (Memantine Hcl 10 Mg Tablet) 10 mg PO BID [facility] Last Admin: 11/05/23 08:28 Dose: 10 mg Quetiapine Fumarate (Quetiapine Fumarate 25 Mg Tablet) 25 mg PO BID PRN PRN Reason: anxiety/agitation Last Admin: 10/31/23 22:33 Dose: 25 mg Quetiapine Fumarate (Quetiapine Fumarate 25 Mg Tablet) 12.5 mg PO BID@0830,1330 [facility] Last Admin: 11/05/23 08:28 Dose: 12.5 mg Quetiapine Fumarate (Quetiapine Fumarate 50 Mg Tablet) 50 mg PO BEDTIME [facility] Last Admin: 11/04/23 20:01 Dose: 50 mg Quetiapine Fumarate (Quetiapine Fumarate 50 Mg Tablet) 50 mg PO DAILY@1700 [facility] Last Admin: 11/04/23 17:22 Dose: 50 mg Sertraline HCl (Sertraline Hcl 25 Mg Tablet) 25 mg PO DAILY [facility] Last Admin: 11/05/23 08:28 Dose: 25 mg Sumatriptan Succinate (Sumatriptan Succinate 50 Mg Tablet) 50 mg PO DAILY MRX1 PRN PRN Reason: Migraine Headache Last Admin: 11/02/23 14:24 Dose: 50 mg Thiamine HCl (Thiamine Hcl 100 Mg Tablet) 100 mg PO DAILY [facility] Last Admin: 11/05/23 08:28 Dose: 100 mg Trazodone HCl (Trazodone Hcl 50 Mg Tablet) 50 mg PO BEDTIME MRX1 PRN PRN Reason: Insomnia Last Admin: 11/04/23 20:00 Dose: 50 mg Allergies Allergies Allergy/AdvReac Type Severity Reaction Status Date / Time Sulfa (Sulfonamide Allergy Severe ANAPHYLAXIS Verified 08/25/23 23:13 Antibiotics) [SULFA (SULFONAMIDE ANTIBIOTICS)] mold Allergy Intermediate Shortness Verified 08/25/23 22:42 of Breath Assessment & Plan Assessment & Plan (1) Alcohol abuse with alcohol-induced mental disorder: Status: Acute Code(s): F10.188 - Alcohol abuse with other alcohol-induced disorder Plan The patient is a 78-year-old male with a past history of alcohol use disorder who was brought to the emergency room of another hospital for psychotic symptoms at the this moment currently denies. 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 Plan 1. Continue with same treatment. 2. Waiting for placement. 3. After the family meeting, her son disclosed that he has been more anxious so we are going to start a low dose of SSRIs. 4. Increase Seroquel in the afternoon Reason for continued inpatient stay Substantial Risk for: inability to function, rapid decompensation and med/psych decompensation Time Spent With Patient Time: Total time managing care of this patient today __20__ minutes.
[2023-11-05] MEDS: QUEtiapine Fumarate 50 MG TABLET PO ×2 (16:49→20:06)
[2023-11-05 20:00] VITALS: BP 140/73; PULSE 82; RESP 18; TEMP 37; O2SAT 95
[2023-11-05] MEDS: traZODone HCL 50 MG TABLET PO (20:06)
[2023-11-05] MEDS: Donepezil HCl 10 MG TABLET PO (20:06)
[2023-11-06 08:00] VITALS: BP 122/60; PULSE 63; RESP 18; TEMP 36.1; O2SAT 95
[2023-11-06] MEDS: Memantine HCl 10 MG TABLET PO ×2 (08:09→20:32)
[2023-11-06] MEDS: Sertraline HCL 25 MG TABLET PO (08:09)
[2023-11-06] MEDS: QUEtiapine Fumarate 25 MG TABLET 12.5 MG PO ×2 (08:09→14:17)
[2023-11-06] MEDS: Thiamine HCL 100 MG TABLET PO (08:09)
[2023-11-06] MEDS: Brimonidine Tartrate 0.2% Oph 5 ML BOTTLE 1 DROP EYE-BOTH ×3 (08:10→20:31)
[2023-11-06 09:10] VITALS: BMI 24.0
--- NOTE | 2023-11-06 11:14 | P.PNPSI_ITS ---
Subjective Subjective Date of Service: 11/06/23 Reason For Visit: Adjustment disorder,w/mixed disturbance of emotion Subjective Notes: Conditional Voluntary Interim History: The nursing staff reported no changes in his mental status confused asking for his car keys and his wallet. On interview the patient denies new symptoms he attended to groups pleasantly confused. Mental Status Exam Mental Status Exam Patient Appearance: Appropriate Patient Orientation: Person and Situation Level of Consciousness: Awake and Appropriate Patient Behavior: Guarded and Passive Mood Description: Withdrawn Affect Description: Constricted Patient Cognition Impaired: Yes Ability to Follow Directions: Good Speech Pattern: Clear Hallucinations: None Delusions: Not Present Thought Process: Distracted and Slowed Thinking Thought Content: positive for [place] and positive for Poverty of Content Judgement: Fair Diagnostics Vital Signs (24Hr): Vital Signs - 24 hr 11/05/23 20:00 11/06/23 08:00 Temperature 98.6 F 96.9 F Pulse Rate 82 63 Respiratory Rate 18 18 Blood Pressure 140/73 H 122/60 Pulse Oximetry 95 95 Oxygen Delivery Method Room Air Room Air BMI result Body Mass Index 24.0 Labs 10/16/23 16:18 10/16/23 16:18 Imaging Radiology Impressions: ITS Impressions Shoulder X-Ray 07/30/23 09:55 IMPRESSION: 1. No metallic foreign body. 2. Calcification adjacent to the humeral head likely on the basis of calcific tendinosis. Orbit X-Ray 07/30/23 11:07 IMPRESSION: 1. No unexpected radiopaque foreign bodies. 2. Clear lungs. 3. Nonobstructive bowel gas pattern. 4. Moderate to large degree of colonic stool burden. Brain MRI 07/30/23 20:40 IMPRESSION: No acute intracranial abnormality. No findings to suggest Wernicke encephalopathy. Hand X-Ray 08/26/23 09:05 IMPRESSION: No fracture seen. Medications Medications Current Medications Acetaminophen (Acetaminophen 325 Mg Tablet) 650 mg PO Q6H PRN PRN Reason: Headache/Pain (1-10) Last Admin: 11/04/23 15:23 Dose: 650 mg Al Hydroxide/Mg Hydroxide (Magnesium Hydrox/Alum Hydrox 30 Ml Oral.Susp) 30 ml PO Q6H PRN PRN Reason: Heartburn/Nausea Last Admin: 11/02/23 19:02 Dose: 30 ml Artificial Tears (Artificial Tears 15 Ml Drops) 1 drop EYE-BOTH Q4H PRN PRN Reason: Dry Eyes Last Admin: 11/03/23 18:01 Dose: 1 drop Benzocaine (Throat Lozenge, Medicated Lozenge) 1 lozenge MUCOUS MEM Q4H PRN PRN Reason: Sore Throat Brimonidine Tartrate (Brimonidine Tartrate 0.2% Oph 5 Ml Bottle) 1 drop EYE- BOTH TID [facility] Last Admin: 11/06/23 08:10 Dose: 1 drop Donepezil HCl (Donepezil Hcl 10 Mg Tablet) 10 mg PO BEDTIME [facility] Last Admin: 11/05/23 20:06 Dose: 10 mg Guaifenesin (Guaifenesin 200 Mg/10 Ml 10 Ml Liquid) 10 ml PO Q6H PRN PRN Reason: Cough Last Admin: 09/05/23 23:21 Dose: 10 ml Lidocaine (Lidocaine 4 % Patch Adh..Patch) 2 patch TRANSDERMA DAILY PRN; Protocol PRN Reason: bilateral low back pain Last Admin: 09/26/23 04:27 Dose: 2 patch Magnesium Hydroxide (Milk Of Magnesia 30 Ml Oral.Susp) 30 ml PO DAILY PRN PRN Reason: Constipation Last Admin: 08/23/23 08:41 Dose: 30 ml Memantine (Memantine Hcl 10 Mg Tablet) 10 mg PO BID [facility] Last Admin: 11/06/23 08:09 Dose: 10 mg Quetiapine Fumarate (Quetiapine Fumarate 25 Mg Tablet) 25 mg PO BID PRN PRN Reason: anxiety/agitation Last Admin: 10/31/23 22:33 Dose: 25 mg Quetiapine Fumarate (Quetiapine Fumarate 25 Mg Tablet) 12.5 mg PO BID@0830,1330 [facility] Last Admin: 11/06/23 08:09 Dose: 12.5 mg Quetiapine Fumarate (Quetiapine Fumarate 50 Mg Tablet) 50 mg PO BEDTIME [facility] Last Admin: 11/05/23 20:06 Dose: 50 mg Quetiapine Fumarate (Quetiapine Fumarate 50 Mg Tablet) 50 mg PO DAILY@1700 [facility] Last Admin: 11/05/23 16:49 Dose: 50 mg Sertraline HCl (Sertraline Hcl 25 Mg Tablet) 25 mg PO DAILY [facility] Last Admin: 11/06/23 08:09 Dose: 25 mg Sumatriptan Succinate (Sumatriptan Succinate 50 Mg Tablet) 50 mg PO DAILY MRX1 PRN PRN Reason: Migraine Headache Last Admin: 11/02/23 14:24 Dose: 50 mg Thiamine HCl (Thiamine Hcl 100 Mg Tablet) 100 mg PO DAILY [facility] Last Admin: 11/06/23 08:09 Dose: 100 mg Trazodone HCl (Trazodone Hcl 50 Mg Tablet) 50 mg PO BEDTIME MRX1 PRN PRN Reason: Insomnia Last Admin: 11/05/23 20:06 Dose: 50 mg Allergies Allergies Allergy/AdvReac Type Severity Reaction Status Date / Time Sulfa (Sulfonamide Allergy Severe ANAPHYLAXIS Verified 08/25/23 23:13 Antibiotics) [SULFA (SULFONAMIDE ANTIBIOTICS)] mold Allergy Intermediate Shortness Verified 08/25/23 22:42 of Breath Assessment & Plan Assessment & Plan (1) Alcohol abuse with alcohol-induced mental disorder: Status: Acute Code(s): F10.188 - Alcohol abuse with other alcohol-induced disorder Plan The patient is a 78-year-old male with a past history of alcohol use disorder who was brought to the emergency room of another hospital for psychotic symptoms at the this moment currently denies. 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 Plan 1. Continue with same treatment. 2. Waiting for placement. 3. After the family meeting, her son disclosed that he has been more anxious so we are going to start a low dose of SSRIs. 4. Increase Seroquel in the afternoon Reason for continued inpatient stay Substantial Risk for: inability to function, rapid decompensation and med/psych decompensation Time Spent With Patient Time: Total time managing care of this patient today __20__ minutes.
[2023-11-06] MEDS: QUEtiapine Fumarate 50 MG TABLET PO ×2 (16:50→20:32)
[2023-11-06 20:00] VITALS: BP 130/71; PULSE 66; RESP 18; TEMP 36.1; O2SAT 96
[2023-11-06] MEDS: traZODone HCL 50 MG TABLET PO (20:32)
[2023-11-06] MEDS: Donepezil HCl 10 MG TABLET PO (20:32)
[2023-11-07] MEDS: traZODone HCL 50 MG TABLET PO ×2 (00:18→20:24)
[2023-11-07] MEDS: QUEtiapine Fumarate 25 MG TABLET PO (00:18)
[2023-11-07 08:20] VITALS: BP 123/62; PULSE 88; RESP 16; TEMP 36.4; O2SAT 94
[2023-11-07] MEDS: Memantine HCl 10 MG TABLET PO ×2 (08:39→20:24)
[2023-11-07] MEDS: Thiamine HCL 100 MG TABLET PO (08:39)
[2023-11-07] MEDS: Sertraline HCL 25 MG TABLET PO (08:39)
--- NOTE | 2023-11-07 08:51 | P.PNPSI_ITS ---
Subjective Subjective Date of Service: 11/07/23 Reason For Visit: Adjustment disorder,w/mixed disturbance of emotion Subjective Notes: Conditional Voluntary Interim History: Pt slept through the night. He denies any physical concerns. He asks if he can go home, despite multiple explanations about having memory problems and needing more supports. No behavioral concerns. Review of Systems Review of Systems Denies today Yes all other systems are reviewed and are negative Mental Status Exam Mental Status Exam Patient Appearance: Appropriate Patient Orientation: Person and Situation Level of Consciousness: Awake and Appropriate Patient Behavior: Guarded and Passive Mood Description: Withdrawn Affect Description: Constricted Patient Cognition Impaired: Yes Ability to Follow Directions: Good Speech Pattern: Clear Memory Description: Recent Impaired Diagnostics Vital Signs (24Hr): Vital Signs - 24 hr 11/06/23 20:00 11/07/23 08:20 Temperature 96.9 F 97.5 F Pulse Rate 66 88 Respiratory Rate 18 16 Blood Pressure 130/71 123/62 Pulse Oximetry 96 94 Oxygen Delivery Method Room Air Room Air BMI result Body Mass Index 24.0 Labs 10/16/23 16:18 10/16/23 16:18 Imaging Radiology Impressions: ITS Impressions Shoulder X-Ray 07/30/23 09:55 IMPRESSION: 1. No metallic foreign body. 2. Calcification adjacent to the humeral head likely on the basis of calcific tendinosis. Orbit X-Ray 07/30/23 11:07 IMPRESSION: 1. No unexpected radiopaque foreign bodies. 2. Clear lungs. 3. Nonobstructive bowel gas pattern. 4. Moderate to large degree of colonic stool burden. Brain MRI 07/30/23 20:40 IMPRESSION: No acute intracranial abnormality. No findings to suggest Wernicke encephalopathy. Hand X-Ray 08/26/23 09:05 IMPRESSION: No fracture seen. Medications Medications Current Medications Acetaminophen (Acetaminophen 325 Mg Tablet) 650 mg PO Q6H PRN PRN Reason: Headache/Pain (1-10) Last Admin: 11/04/23 15:23 Dose: 650 mg Al Hydroxide/Mg Hydroxide (Magnesium Hydrox/Alum Hydrox 30 Ml Oral.Susp) 30 ml PO Q6H PRN PRN Reason: Heartburn/Nausea Last Admin: 11/02/23 19:02 Dose: 30 ml Artificial Tears (Artificial Tears 15 Ml Drops) 1 drop EYE-BOTH Q4H PRN PRN Reason: Dry Eyes Last Admin: 11/03/23 18:01 Dose: 1 drop Benzocaine (Throat Lozenge, Medicated Lozenge) 1 lozenge MUCOUS MEM Q4H PRN PRN Reason: Sore Throat Brimonidine Tartrate (Brimonidine Tartrate 0.2% Oph 5 Ml Bottle) 1 drop EYE- BOTH TID [facility] Last Admin: 11/06/23 20:31 Dose: 1 drop Donepezil HCl (Donepezil Hcl 10 Mg Tablet) 10 mg PO BEDTIME [facility] Last Admin: 11/06/23 20:32 Dose: 10 mg Guaifenesin (Guaifenesin 200 Mg/10 Ml 10 Ml Liquid) 10 ml PO Q6H PRN PRN Reason: Cough Last Admin: 09/05/23 23:21 Dose: 10 ml Lidocaine (Lidocaine 4 % Patch Adh..Patch) 2 patch TRANSDERMA DAILY PRN; Protocol PRN Reason: bilateral low back pain Last Admin: 09/26/23 04:27 Dose: 2 patch Magnesium Hydroxide (Milk Of Magnesia 30 Ml Oral.Susp) 30 ml PO DAILY PRN PRN Reason: Constipation Last Admin: 08/23/23 08:41 Dose: 30 ml Memantine (Memantine Hcl 10 Mg Tablet) 10 mg PO BID [facility] Last Admin: 11/07/23 08:39 Dose: 10 mg Quetiapine Fumarate (Quetiapine Fumarate 25 Mg Tablet) 25 mg PO BID PRN PRN Reason: anxiety/agitation Last Admin: 11/07/23 00:18 Dose: 25 mg Quetiapine Fumarate (Quetiapine Fumarate 25 Mg Tablet) 12.5 mg PO BID@0830,1330 [facility] Last Admin: 11/06/23 14:17 Dose: 12.5 mg Quetiapine Fumarate (Quetiapine Fumarate 50 Mg Tablet) 50 mg PO BEDTIME [facility] Last Admin: 11/06/23 20:32 Dose: 50 mg Quetiapine Fumarate (Quetiapine Fumarate 50 Mg Tablet) 50 mg PO DAILY@1700 [facility] Last Admin: 11/06/23 16:50 Dose: 50 mg Sertraline HCl (Sertraline Hcl 25 Mg Tablet) 25 mg PO DAILY [facility] Last Admin: 11/07/23 08:39 Dose: 25 mg Sumatriptan Succinate (Sumatriptan Succinate 50 Mg Tablet) 50 mg PO DAILY MRX1 PRN PRN Reason: Migraine Headache Last Admin: 11/02/23 14:24 Dose: 50 mg Thiamine HCl (Thiamine Hcl 100 Mg Tablet) 100 mg PO DAILY [facility] Last Admin: 11/07/23 08:39 Dose: 100 mg Trazodone HCl (Trazodone Hcl 50 Mg Tablet) 50 mg PO BEDTIME MRX1 PRN PRN Reason: Insomnia Last Admin: 11/07/23 00:18 Dose: 50 mg Allergies Allergies Allergy/AdvReac Type Severity Reaction Status Date / Time Sulfa (Sulfonamide Allergy Severe ANAPHYLAXIS Verified 08/25/23 23:13 Antibiotics) [SULFA (SULFONAMIDE ANTIBIOTICS)] mold Allergy Intermediate Shortness Verified 08/25/23 22:42 of Breath Assessment & Plan Assessment & Plan (1) Alcohol abuse with alcohol-induced mental disorder: Status: Acute Code(s): F10.188 - Alcohol abuse with other alcohol-induced disorder Plan The patient is a 78-year-old male with a past history of alcohol use disorder who was brought to the emergency room of another hospital for psychotic symptoms at the this moment currently denies. 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 Plan 11/06 continue tx. Reason for continued inpatient stay Substantial Risk for: inability to function Time Spent With Patient Time: Total time managing care of this patient today ____ minutes.
[2023-11-07] MEDS: Brimonidine Tartrate 0.2% Oph 5 ML BOTTLE 1 DROP EYE-BOTH ×3 (09:55→20:23)
[2023-11-07] MEDS: QUEtiapine Fumarate 25 MG TABLET 12.5 MG PO ×2 (09:56→15:27)
[2023-11-07] MEDS: QUEtiapine Fumarate 50 MG TABLET PO ×2 (16:42→20:24)
[2023-11-07 20:00] VITALS: BP 118/52; PULSE 73; RESP 16; TEMP 36.4; O2SAT 95
[2023-11-07] MEDS: Donepezil HCl 10 MG TABLET PO (20:23)
[2023-11-08 08:37] VITALS: BP 135/62; PULSE 85; RESP 17; TEMP 36.3; O2SAT 94
[2023-11-08] MEDS: Sertraline HCL 25 MG TABLET PO (08:39)
[2023-11-08] MEDS: QUEtiapine Fumarate 25 MG TABLET 12.5 MG PO ×2 (08:39→14:12)
[2023-11-08] MEDS: Thiamine HCL 100 MG TABLET PO (08:39)
[2023-11-08] MEDS: Memantine HCl 10 MG TABLET PO ×2 (08:39→20:35)
[2023-11-08] MEDS: Brimonidine Tartrate 0.2% Oph 5 ML BOTTLE 1 DROP EYE-BOTH ×3 (08:40→20:35)
--- NOTE | 2023-11-08 09:27 | HO.PSYCHPN ---
Subjective Subjective Date of Service: 11/08/23 Reason For Visit: Adjustment disorder,w/mixed disturbance of emotion Subjective Notes: Conditional Voluntary Interim History: Pt slept through the night. He denies any physical concerns. Once again, he asks if he can go home, despite multiple explanations about having memory problems and needing more supports. No behavioral concerns. Review of Systems Review of Systems Denies today Yes all other systems are reviewed and are negative Mental Status Exam Mental Status Exam Patient Appearance: Appropriate Patient Orientation: Person and Situation Level of Consciousness: Awake and Appropriate Patient Behavior: Guarded and Passive Mood Description: Withdrawn Affect Description: Constricted Patient Cognition Impaired: Yes Ability to Follow Directions: Good Speech Pattern: Clear Memory Description: Recent Impaired Diagnostics Vital Signs (24Hr): Vital Signs - 24 hr 11/07/23 20:00 11/08/23 08:37 Temperature 97.5 F 97.3 F Pulse Rate 73 85 Respiratory Rate 16 17 Blood Pressure 118/52 L 135/62 Pulse Oximetry 95 94 Oxygen Delivery Method Room Air Room Air BMI result Body Mass Index 24.0 Labs 10/16/23 16:18 10/16/23 16:18 Imaging Radiology Impressions: ITS Impressions Shoulder X-Ray 07/30/23 09:55 IMPRESSION: 1. No metallic foreign body. 2. Calcification adjacent to the humeral head likely on the basis of calcific tendinosis. Orbit X-Ray 07/30/23 11:07 IMPRESSION: 1. No unexpected radiopaque foreign bodies. 2. Clear lungs. 3. Nonobstructive bowel gas pattern. 4. Moderate to large degree of colonic stool burden. Brain MRI 07/30/23 20:40 IMPRESSION: No acute intracranial abnormality. No findings to suggest Wernicke encephalopathy. Hand X-Ray 08/26/23 09:05 IMPRESSION: No fracture seen. Medications Medications Current Medications Acetaminophen (Acetaminophen 325 Mg Tablet) 650 mg PO Q6H PRN PRN Reason: Headache/Pain (1-10) Last Admin: 11/04/23 15:23 Dose: 650 mg Al Hydroxide/Mg Hydroxide (Magnesium Hydrox/Alum Hydrox 30 Ml Oral.Susp) 30 ml PO Q6H PRN PRN Reason: Heartburn/Nausea Last Admin: 11/02/23 19:02 Dose: 30 ml Artificial Tears (Artificial Tears 15 Ml Drops) 1 drop EYE-BOTH Q4H PRN PRN Reason: Dry Eyes Last Admin: 11/03/23 18:01 Dose: 1 drop Benzocaine (Throat Lozenge, Medicated Lozenge) 1 lozenge MUCOUS MEM Q4H PRN PRN Reason: Sore Throat Brimonidine Tartrate (Brimonidine Tartrate 0.2% Oph 5 Ml Bottle) 1 drop EYE-BOTH TID [facility] Last Admin: 11/08/23 08:40 Dose: 1 drop Donepezil HCl (Donepezil Hcl 10 Mg Tablet) 10 mg PO BEDTIME [facility] Last Admin: 11/07/23 20:23 Dose: 10 mg Guaifenesin (Guaifenesin 200 Mg/10 Ml 10 Ml Liquid) 10 ml PO Q6H PRN PRN Reason: Cough Last Admin: 09/05/23 23:21 Dose: 10 ml Lidocaine (Lidocaine 4 % Patch Adh..Patch) 2 patch TRANSDERMA DAILY PRN; Protocol PRN Reason: bilateral low back pain Last Admin: 09/26/23 04:27 Dose: 2 patch Magnesium Hydroxide (Milk Of Magnesia 30 Ml Oral.Susp) 30 ml PO DAILY PRN PRN Reason: Constipation Last Admin: 08/23/23 08:41 Dose: 30 ml Memantine (Memantine Hcl 10 Mg Tablet) 10 mg PO BID [facility] Last Admin: 11/08/23 08:39 Dose: 10 mg Quetiapine Fumarate (Quetiapine Fumarate 25 Mg Tablet) 25 mg PO BID PRN PRN Reason: anxiety/agitation Last Admin: 11/07/23 00:18 Dose: 25 mg Quetiapine Fumarate (Quetiapine Fumarate 25 Mg Tablet) 12.5 mg PO BID@0830,1330 [facility] Last Admin: 11/08/23 08:39 Dose: 12.5 mg Quetiapine Fumarate (Quetiapine Fumarate 50 Mg Tablet) 50 mg PO BEDTIME [facility] Last Admin: 11/07/23 20:24 Dose: 50 mg Quetiapine Fumarate (Quetiapine Fumarate 50 Mg Tablet) 50 mg PO DAILY@1700 [facility] Last Admin: 11/07/23 16:42 Dose: 50 mg Sertraline HCl (Sertraline Hcl 25 Mg Tablet) 25 mg PO DAILY [facility] Last Admin: 11/08/23 08:39 Dose: 25 mg Sumatriptan Succinate (Sumatriptan Succinate 50 Mg Tablet) 50 mg PO DAILY MRX1 PRN PRN Reason: Migraine Headache Last Admin: 11/02/23 14:24 Dose: 50 mg Thiamine HCl (Thiamine Hcl 100 Mg Tablet) 100 mg PO DAILY [facility] Last Admin: 11/08/23 08:39 Dose: 100 mg Trazodone HCl (Trazodone Hcl 50 Mg Tablet) 50 mg PO BEDTIME MRX1 PRN PRN Reason: Insomnia Last Admin: 11/07/23 20:24 Dose: 50 mg Allergies Allergies Allergy/AdvReac Type Severity Reaction Status Date / Time Sulfa (Sulfonamide Allergy Severe ANAPHYLAXIS Verified 08/25/23 23:13 Antibiotics) [SULFA (SULFONAMIDE ANTIBIOTICS)] mold Allergy Intermediate Shortness Verified 08/25/23 22:42 of Breath Assessment & Plan Assessment & Plan (1) Alcohol abuse with alcohol-induced mental disorder: Status: Acute Code(s): F10.188 - Alcohol abuse with other alcohol-induced disorder Plan The patient is a 78-year-old male with a past history of alcohol use disorder who was brought to the emergency room of another hospital for psychotic symptoms at the this moment currently denies. 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 Plan 11/06 continue tx. 11/07 continue tx. Reason for continued inpatient stay Substantial Risk for: inability to function Time Spent With Patient Time: Total time managing care of this patient today ____ minutes.
[2023-11-08] MEDS: QUEtiapine Fumarate 50 MG TABLET PO ×2 (16:58→20:35)
[2023-11-08 20:00] VITALS: BP 138/68; PULSE 70; RESP 16; TEMP 36.6; O2SAT 94
[2023-11-08] MEDS: Donepezil HCl 10 MG TABLET PO (20:34)
[2023-11-09 08:25] VITALS: BP 124/67; PULSE 71; RESP 16; TEMP 36.5; O2SAT 94
[2023-11-09] MEDS: Thiamine HCL 100 MG TABLET PO (08:26)
[2023-11-09] MEDS: Memantine HCl 10 MG TABLET PO ×2 (08:26→20:46)
[2023-11-09] MEDS: QUEtiapine Fumarate 25 MG TABLET 12.5 MG PO ×2 (08:26→14:12)
[2023-11-09] MEDS: Sertraline HCL 25 MG TABLET PO (08:26)
[2023-11-09] MEDS: Brimonidine Tartrate 0.2% Oph 5 ML BOTTLE 1 DROP EYE-BOTH ×3 (08:27→20:46)
--- NOTE | 2023-11-09 11:16 | P.PNPSI_ITS ---
Subjective Subjective Date of Service: 11/09/23 Reason For Visit: Adjustment disorder,w/mixed disturbance of emotion Interim History: Pt slept through the night. He denies any physical concerns. Once again, he asks if he can go home, despite multiple explanations about having memory problems and needing more supports. No behavioral concerns. Review of Systems Review of Systems Denies today Yes all other systems are reviewed and are negative Mental Status Exam Mental Status Exam Patient Appearance: Appropriate Patient Orientation: Person and Situation Level of Consciousness: Awake and Appropriate Patient Behavior: Guarded and Passive Mood Description: Withdrawn Affect Description: Constricted Patient Cognition Impaired: Yes Ability to Follow Directions: Good Speech Pattern: Clear Memory Description: Recent Impaired Diagnostics Vital Signs (24Hr): Vital Signs - 24 hr 11/08/23 20:00 11/09/23 08:25 Temperature 97.8 F 97.7 F Pulse Rate 70 71 Respiratory Rate 16 16 Blood Pressure 138/68 124/67 Pulse Oximetry 94 94 Oxygen Delivery Method Room Air Room Air BMI result Body Mass Index 24.0 Labs 10/16/23 16:18 10/16/23 16:18 Imaging Radiology Impressions: ITS Impressions Shoulder X-Ray 07/30/23 09:55 IMPRESSION: 1. No metallic foreign body. 2. Calcification adjacent to the humeral head likely on the basis of calcific tendinosis. Orbit X-Ray 07/30/23 11:07 IMPRESSION: 1. No unexpected radiopaque foreign bodies. 2. Clear lungs. 3. Nonobstructive bowel gas pattern. 4. Moderate to large degree of colonic stool burden. Brain MRI 07/30/23 20:40 IMPRESSION: No acute intracranial abnormality. No findings to suggest Wernicke encephalopathy. Hand X-Ray 08/26/23 09:05 IMPRESSION: No fracture seen. Medications Medications Current Medications Acetaminophen (Acetaminophen 325 Mg Tablet) 650 mg PO Q6H PRN PRN Reason: Headache/Pain (1-10) Last Admin: 11/04/23 15:23 Dose: 650 mg Al Hydroxide/Mg Hydroxide (Magnesium Hydrox/Alum Hydrox 30 Ml Oral.Susp) 30 ml PO Q6H PRN PRN Reason: Heartburn/Nausea Last Admin: 11/02/23 19:02 Dose: 30 ml Artificial Tears (Artificial Tears 15 Ml Drops) 1 drop EYE-BOTH Q4H PRN PRN Reason: Dry Eyes Last Admin: 11/03/23 18:01 Dose: 1 drop Benzocaine (Throat Lozenge, Medicated Lozenge) 1 lozenge MUCOUS MEM Q4H PRN PRN Reason: Sore Throat Brimonidine Tartrate (Brimonidine Tartrate 0.2% Oph 5 Ml Bottle) 1 drop EYE- BOTH TID [facility] Last Admin: 11/09/23 08:27 Dose: 1 drop Donepezil HCl (Donepezil Hcl 10 Mg Tablet) 10 mg PO BEDTIME [facility] Last Admin: 11/08/23 20:34 Dose: 10 mg Guaifenesin (Guaifenesin 200 Mg/10 Ml 10 Ml Liquid) 10 ml PO Q6H PRN PRN Reason: Cough Last Admin: 09/05/23 23:21 Dose: 10 ml Lidocaine (Lidocaine 4 % Patch Adh..Patch) 2 patch TRANSDERMA DAILY PRN; Protocol PRN Reason: bilateral low back pain Last Admin: 09/26/23 04:27 Dose: 2 patch Magnesium Hydroxide (Milk Of Magnesia 30 Ml Oral.Susp) 30 ml PO DAILY PRN PRN Reason: Constipation Last Admin: 08/23/23 08:41 Dose: 30 ml Memantine (Memantine Hcl 10 Mg Tablet) 10 mg PO BID [facility] Last Admin: 11/09/23 08:26 Dose: 10 mg Quetiapine Fumarate (Quetiapine Fumarate 25 Mg Tablet) 25 mg PO BID PRN PRN Reason: anxiety/agitation Last Admin: 11/07/23 00:18 Dose: 25 mg Quetiapine Fumarate (Quetiapine Fumarate 25 Mg Tablet) 12.5 mg PO BID@0830,1330 [facility] Last Admin: 11/09/23 08:26 Dose: 12.5 mg Quetiapine Fumarate (Quetiapine Fumarate 50 Mg Tablet) 50 mg PO BEDTIME [facility] Last Admin: 11/08/23 20:35 Dose: 50 mg Quetiapine Fumarate (Quetiapine Fumarate 50 Mg Tablet) 50 mg PO DAILY@1700 [facility] Last Admin: 11/08/23 16:58 Dose: 50 mg Sertraline HCl (Sertraline Hcl 25 Mg Tablet) 25 mg PO DAILY [facility] Last Admin: 11/09/23 08:26 Dose: 25 mg Sumatriptan Succinate (Sumatriptan Succinate 50 Mg Tablet) 50 mg PO DAILY MRX1 PRN PRN Reason: Migraine Headache Last Admin: 11/02/23 14:24 Dose: 50 mg Thiamine HCl (Thiamine Hcl 100 Mg Tablet) 100 mg PO DAILY [facility] Last Admin: 11/09/23 08:26 Dose: 100 mg Trazodone HCl (Trazodone Hcl 50 Mg Tablet) 50 mg PO BEDTIME MRX1 PRN PRN Reason: Insomnia Last Admin: 11/07/23 20:24 Dose: 50 mg Allergies Allergies Allergy/AdvReac Type Severity Reaction Status Date / Time Sulfa (Sulfonamide Allergy Severe ANAPHYLAXIS Verified 08/25/23 23:13 Antibiotics) [SULFA (SULFONAMIDE ANTIBIOTICS)] mold Allergy Intermediate Shortness Verified 08/25/23 22:42 of Breath Assessment & Plan Assessment & Plan (1) Alcohol abuse with alcohol-induced mental disorder: Status: Acute Code(s): F10.188 - Alcohol abuse with other alcohol-induced disorder Plan The patient is a 78-year-old male with a past history of alcohol use disorder who was brought to the emergency room of another hospital for psychotic symptoms at the this moment currently denies. 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 Plan 11/06 continue tx. 11/07 continue tx. 11/08 continue tx. Reason for continued inpatient stay Substantial Risk for: inability to function Time Spent With Patient Time: Total time managing care of this patient today ____ minutes.
[2023-11-09] MEDS: QUEtiapine Fumarate 25 MG TABLET PO (12:49)
[2023-11-09] MEDS: QUEtiapine Fumarate 50 MG TABLET PO ×2 (17:00→20:46)
[2023-11-09 20:00] VITALS: BP 124/60; PULSE 69; RESP 18; TEMP 36.5; O2SAT 93
[2023-11-09] MEDS: Donepezil HCl 10 MG TABLET PO (20:46)
[2023-11-09] MEDS: traZODone HCL 50 MG TABLET PO (20:46)
[2023-11-09 21:30] VITALS: BP 141/69; PULSE 66; RESP 16; O2SAT 93
[2023-11-09] MEDS: Magnesium Hydrox/Alum Hydrox 30 ML ORAL.SUSP PO (21:34)
[2023-11-10 09:10] VITALS: BP 138/65; PULSE 85; RESP 18; TEMP 36.7; O2SAT 95
[2023-11-10] MEDS: Artificial Tears 15 ML DROPS 1 DROP EYE-BOTH (09:12)
[2023-11-10] MEDS: QUEtiapine Fumarate 25 MG TABLET 12.5 MG PO ×2 (09:13→13:20)
[2023-11-10] MEDS: Sertraline HCL 25 MG TABLET PO (09:13)
[2023-11-10] MEDS: Thiamine HCL 100 MG TABLET PO (09:13)
[2023-11-10] MEDS: Memantine HCl 10 MG TABLET PO ×2 (09:13→20:09)
[2023-11-10] MEDS: Brimonidine Tartrate 0.2% Oph 5 ML BOTTLE 1 DROP EYE-BOTH ×3 (09:22→20:09)
[2023-11-10] MEDS: QUEtiapine Fumarate 25 MG TABLET PO (13:21)
--- NOTE | 2023-11-10 14:11 | P.PNPSI_ITS ---
Subjective Subjective Date of Service: 11/10/23 Reason For Visit: Adjustment disorder,w/mixed disturbance of emotion Subjective Notes: Conditional Voluntary Interim History: The nursing staff reported no changes in his mental status, compliant with treatment. On interview the patient remains pleasantly confused, waiting placement Mental Status Exam Mental Status Exam Patient Appearance: Well Grooomed and Appropriate Patient Orientation: Person and Situation Level of Consciousness: Awake and Appropriate Patient Behavior: Guarded and Passive Mood Description: Withdrawn Affect Description: Constricted Patient Cognition Impaired: Yes Ability to Follow Directions: Good Speech Pattern: Clear Hallucinations: None Delusions: Not Present Thought Process: Distracted and Slowed Thinking Thought Content: positive for [place] and positive for Poverty of Content Judgement: Fair Diagnostics Vital Signs (24Hr): Vital Signs - 24 hr 11/09/23 20:00 11/09/23 21:30 11/10/23 09:10 Temperature 97.7 F 98.1 F Pulse Rate 69 66 85 Respiratory Rate 18 16 18 Blood Pressure 124/60 141/69 H 138/65 Pulse Oximetry 93 93 95 Oxygen Delivery Method Room Air Room Air Room Air BMI result Body Mass Index 24.0 Labs 10/16/23 16:18 10/16/23 16:18 Imaging Radiology Impressions: ITS Impressions Shoulder X-Ray 07/30/23 09:55 IMPRESSION: 1. No metallic foreign body. 2. Calcification adjacent to the humeral head likely on the basis of calcific tendinosis. Orbit X-Ray 07/30/23 11:07 IMPRESSION: 1. No unexpected radiopaque foreign bodies. 2. Clear lungs. 3. Nonobstructive bowel gas pattern. 4. Moderate to large degree of colonic stool burden. Brain MRI 07/30/23 20:40 IMPRESSION: No acute intracranial abnormality. No findings to suggest Wernicke encephalopathy. Hand X-Ray 08/26/23 09:05 IMPRESSION: No fracture seen. Medications Medications Current Medications Acetaminophen (Acetaminophen 325 Mg Tablet) 650 mg PO Q6H PRN PRN Reason: Headache/Pain (1-10) Last Admin: 11/04/23 15:23 Dose: 650 mg Al Hydroxide/Mg Hydroxide (Magnesium Hydrox/Alum Hydrox 30 Ml Oral.Susp) 30 ml PO Q6H PRN PRN Reason: Heartburn/Nausea Last Admin: 11/09/23 21:34 Dose: 30 ml Artificial Tears (Artificial Tears 15 Ml Drops) 1 drop EYE-BOTH Q4H PRN PRN Reason: Dry Eyes Last Admin: 11/10/23 09:12 Dose: 1 drop Benzocaine (Throat Lozenge, Medicated Lozenge) 1 lozenge MUCOUS MEM Q4H PRN PRN Reason: Sore Throat Brimonidine Tartrate (Brimonidine Tartrate 0.2% Oph 5 Ml Bottle) 1 drop EYE- BOTH TID [facility] Last Admin: 11/10/23 09:22 Dose: 1 drop Donepezil HCl (Donepezil Hcl 10 Mg Tablet) 10 mg PO BEDTIME [facility] Last Admin: 11/09/23 20:46 Dose: 10 mg Guaifenesin (Guaifenesin 200 Mg/10 Ml 10 Ml Liquid) 10 ml PO Q6H PRN PRN Reason: Cough Last Admin: 09/05/23 23:21 Dose: 10 ml Lidocaine (Lidocaine 4 % Patch Adh..Patch) 2 patch TRANSDERMA DAILY PRN; Protocol PRN Reason: bilateral low back pain Last Admin: 09/26/23 04:27 Dose: 2 patch Magnesium Hydroxide (Milk Of Magnesia 30 Ml Oral.Susp) 30 ml PO DAILY PRN PRN Reason: Constipation Last Admin: 08/23/23 08:41 Dose: 30 ml Memantine (Memantine Hcl 10 Mg Tablet) 10 mg PO BID [facility] Last Admin: 11/10/23 09:13 Dose: 10 mg Quetiapine Fumarate (Quetiapine Fumarate 25 Mg Tablet) 25 mg PO BID PRN PRN Reason: anxiety/agitation Last Admin: 11/10/23 13:21 Dose: 25 mg Quetiapine Fumarate (Quetiapine Fumarate 25 Mg Tablet) 12.5 mg PO BID@0830,1330 [facility] Last Admin: 11/10/23 13:20 Dose: 12.5 mg Quetiapine Fumarate (Quetiapine Fumarate 50 Mg Tablet) 50 mg PO BEDTIME [facility] Last Admin: 11/09/23 20:46 Dose: 50 mg Quetiapine Fumarate (Quetiapine Fumarate 50 Mg Tablet) 50 mg PO DAILY@1700 [facility] Last Admin: 11/09/23 17:00 Dose: 50 mg Sertraline HCl (Sertraline Hcl 25 Mg Tablet) 25 mg PO DAILY [facility] Last Admin: 11/10/23 09:13 Dose: 25 mg Sumatriptan Succinate (Sumatriptan Succinate 50 Mg Tablet) 50 mg PO DAILY MRX1 PRN PRN Reason: Migraine Headache Last Admin: 11/02/23 14:24 Dose: 50 mg Thiamine HCl (Thiamine Hcl 100 Mg Tablet) 100 mg PO DAILY [facility] Last Admin: 11/10/23 09:13 Dose: 100 mg Trazodone HCl (Trazodone Hcl 50 Mg Tablet) 50 mg PO BEDTIME MRX1 PRN PRN Reason: Insomnia Last Admin: 11/09/23 20:46 Dose: 50 mg Allergies Allergies Allergy/AdvReac Type Severity Reaction Status Date / Time Sulfa (Sulfonamide Allergy Severe ANAPHYLAXIS Verified 08/25/23 23:13 Antibiotics) [SULFA (SULFONAMIDE ANTIBIOTICS)] mold Allergy Intermediate Shortness Verified 08/25/23 22:42 of Breath Assessment & Plan Assessment & Plan (1) Alcohol abuse with alcohol-induced mental disorder: Status: Acute Code(s): F10.188 - Alcohol abuse with other alcohol-induced disorder Plan The patient is a 78-year-old male with a past history of alcohol use disorder who was brought to the emergency room of another hospital for psychotic symptoms at the this moment currently denies. 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 Plan 1. Continue same treatment. 2. Waiting for placement. Reason for continued inpatient stay Substantial Risk for: inability to function, rapid decompensation and med/psych decompensation Time Spent With Patient Time: Total time managing care of this patient today __20__ minutes.
[2023-11-10] MEDS: QUEtiapine Fumarate 50 MG TABLET PO ×2 (18:11→20:09)
[2023-11-10 20:00] VITALS: BP 104/57; PULSE 62; RESP 18; TEMP 36.5; O2SAT 97
[2023-11-10] MEDS: Donepezil HCl 10 MG TABLET PO (20:09)
[2023-11-10] MEDS: traZODone HCL 50 MG TABLET PO (20:09)
[2023-11-11 09:00] VITALS: BP 134/65; PULSE 68; RESP 16; TEMP 36.8; O2SAT 95
[2023-11-11] MEDS: Brimonidine Tartrate 0.2% Oph 5 ML BOTTLE 1 DROP EYE-BOTH ×3 (09:25→20:55)
[2023-11-11] MEDS: Memantine HCl 10 MG TABLET PO ×2 (09:26→20:23)
[2023-11-11] MEDS: QUEtiapine Fumarate 25 MG TABLET 12.5 MG PO ×2 (09:26→13:06)
[2023-11-11] MEDS: Sertraline HCL 25 MG TABLET PO (09:26)
[2023-11-11] MEDS: Thiamine HCL 100 MG TABLET PO (09:26)
--- NOTE | 2023-11-11 12:28 | P.PNPSI_ITS ---
Subjective Subjective Date of Service: 11/11/23 Reason For Visit: Adjustment disorder,w/mixed disturbance of emotion Subjective Notes: Conditional Voluntary Interim History: The nursing staff reported the patient had been calm, slept 7 hours and he had been compliant with treatment. On interview the patient is unable to remember what we have discussed the days before. Asking about his discharge unable to process new information. Mental Status Exam Mental Status Exam Patient Appearance: Appropriate Patient Orientation: Person and Situation Level of Consciousness: Awake and Appropriate Patient Behavior: Guarded and Passive Mood Description: Calm Affect Description: Constricted Patient Cognition Impaired: Yes Ability to Follow Directions: Good Speech Pattern: Clear Hallucinations: None Delusions: Not Present Thought Process: Distracted and Slowed Thinking Thought Content: positive for [place] and positive for Poverty of Content Judgement: Poor Diagnostics Vital Signs (24Hr): Vital Signs - 24 hr 11/10/23 20:00 11/11/23 09:00 Temperature 97.7 F 98.2 F Pulse Rate 62 68 Respiratory Rate 18 16 Blood Pressure 104/57 L 134/65 Pulse Oximetry 97 95 Oxygen Delivery Method Room Air Room Air BMI result Body Mass Index 24.0 Labs 10/16/23 16:18 10/16/23 16:18 Imaging Radiology Impressions: ITS Impressions Shoulder X-Ray 07/30/23 09:55 IMPRESSION: 1. No metallic foreign body. 2. Calcification adjacent to the humeral head likely on the basis of calcific tendinosis. Orbit X-Ray 07/30/23 11:07 IMPRESSION: 1. No unexpected radiopaque foreign bodies. 2. Clear lungs. 3. Nonobstructive bowel gas pattern. 4. Moderate to large degree of colonic stool burden. Brain MRI 07/30/23 20:40 IMPRESSION: No acute intracranial abnormality. No findings to suggest Wernicke encephalopathy. Hand X-Ray 08/26/23 09:05 IMPRESSION: No fracture seen. Medications Medications Current Medications Acetaminophen (Acetaminophen 325 Mg Tablet) 650 mg PO Q6H PRN PRN Reason: Headache/Pain (1-10) Last Admin: 11/04/23 15:23 Dose: 650 mg Al Hydroxide/Mg Hydroxide (Magnesium Hydrox/Alum Hydrox 30 Ml Oral.Susp) 30 ml PO Q6H PRN PRN Reason: Heartburn/Nausea Last Admin: 11/09/23 21:34 Dose: 30 ml Artificial Tears (Artificial Tears 15 Ml Drops) 1 drop EYE-BOTH Q4H PRN PRN Reason: Dry Eyes Last Admin: 11/10/23 09:12 Dose: 1 drop Benzocaine (Throat Lozenge, Medicated Lozenge) 1 lozenge MUCOUS MEM Q4H PRN PRN Reason: Sore Throat Brimonidine Tartrate (Brimonidine Tartrate 0.2% Oph 5 Ml Bottle) 1 drop EYE- BOTH TID [facility] Last Admin: 11/11/23 09:25 Dose: 1 drop Donepezil HCl (Donepezil Hcl 10 Mg Tablet) 10 mg PO BEDTIME [facility] Last Admin: 11/10/23 20:09 Dose: 10 mg Guaifenesin (Guaifenesin 200 Mg/10 Ml 10 Ml Liquid) 10 ml PO Q6H PRN PRN Reason: Cough Last Admin: 09/05/23 23:21 Dose: 10 ml Lidocaine (Lidocaine 4 % Patch Adh..Patch) 2 patch TRANSDERMA DAILY PRN; Protocol PRN Reason: bilateral low back pain Last Admin: 09/26/23 04:27 Dose: 2 patch Magnesium Hydroxide (Milk Of Magnesia 30 Ml Oral.Susp) 30 ml PO DAILY PRN PRN Reason: Constipation Last Admin: 08/23/23 08:41 Dose: 30 ml Memantine (Memantine Hcl 10 Mg Tablet) 10 mg PO BID [facility] Last Admin: 11/11/23 09:26 Dose: 10 mg Quetiapine Fumarate (Quetiapine Fumarate 25 Mg Tablet) 25 mg PO BID PRN PRN Reason: anxiety/agitation Last Admin: 11/10/23 13:21 Dose: 25 mg Quetiapine Fumarate (Quetiapine Fumarate 25 Mg Tablet) 12.5 mg PO BID@0830,1330 [facility] Last Admin: 11/11/23 09:26 Dose: 12.5 mg Quetiapine Fumarate (Quetiapine Fumarate 50 Mg Tablet) 50 mg PO BEDTIME [facility] Last Admin: 11/10/23 20:09 Dose: 50 mg Quetiapine Fumarate (Quetiapine Fumarate 50 Mg Tablet) 50 mg PO DAILY@1700 [facility] Last Admin: 11/10/23 18:11 Dose: 50 mg Sertraline HCl (Sertraline Hcl 25 Mg Tablet) 25 mg PO DAILY [facility] Last Admin: 11/11/23 09:26 Dose: 25 mg Sumatriptan Succinate (Sumatriptan Succinate 50 Mg Tablet) 50 mg PO DAILY MRX1 PRN PRN Reason: Migraine Headache Last Admin: 11/02/23 14:24 Dose: 50 mg Thiamine HCl (Thiamine Hcl 100 Mg Tablet) 100 mg PO DAILY [facility] Last Admin: 11/11/23 09:26 Dose: 100 mg Trazodone HCl (Trazodone Hcl 50 Mg Tablet) 50 mg PO BEDTIME MRX1 PRN PRN Reason: Insomnia Last Admin: 11/10/23 20:09 Dose: 50 mg Allergies Allergies Allergy/AdvReac Type Severity Reaction Status Date / Time Sulfa (Sulfonamide Allergy Severe ANAPHYLAXIS Verified 08/25/23 23:13 Antibiotics) [SULFA (SULFONAMIDE ANTIBIOTICS)] mold Allergy Intermediate Shortness Verified 08/25/23 22:42 of Breath Assessment & Plan Assessment & Plan (1) Alcohol abuse with alcohol-induced mental disorder: Status: Acute Code(s): F10.188 - Alcohol abuse with other alcohol-induced disorder Plan The patient is a 78-year-old male with a past history of alcohol use disorder who was brought to the emergency room of another hospital for psychotic symptoms at the this moment currently denies. 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 Plan 1. Continue same treatment. 2. Waiting for placement. Reason for continued inpatient stay Substantial Risk for: inability to function, rapid decompensation and med/psych decompensation Time Spent With Patient Time: Total time managing care of this patient today __20__ minutes.
[2023-11-11] MEDS: QUEtiapine Fumarate 50 MG TABLET PO ×2 (18:06→20:23)
[2023-11-11 20:00] VITALS: BP 126/61; PULSE 74; RESP 16; TEMP 36.3; O2SAT 95
[2023-11-11] MEDS: Donepezil HCl 10 MG TABLET PO (20:23)
[2023-11-11] MEDS: traZODone HCL 50 MG TABLET PO (20:23)
[2023-11-11] MEDS: Artificial Tears 15 ML DROPS 1 DROP EYE-BOTH (20:33)
[2023-11-12 07:55] VITALS: BP 152/79; PULSE 72; RESP 18; TEMP 36.8; O2SAT 96
[2023-11-12] MEDS: Memantine HCl 10 MG TABLET PO ×2 (08:25→20:11)
[2023-11-12] MEDS: Sertraline HCL 25 MG TABLET PO (08:25)
[2023-11-12] MEDS: QUEtiapine Fumarate 25 MG TABLET 12.5 MG PO ×2 (08:25→13:11)
[2023-11-12] MEDS: Thiamine HCL 100 MG TABLET PO (08:25)
[2023-11-12] MEDS: Brimonidine Tartrate 0.2% Oph 5 ML BOTTLE 1 DROP EYE-BOTH ×3 (08:28→20:15)
--- NOTE | 2023-11-12 16:33 | P.PNPSI_ITS ---
Subjective Subjective Date of Service: 11/12/23 Reason For Visit: Adjustment disorder,w/mixed disturbance of emotion Subjective Notes: Conditional Voluntary Healthcare Proxy: Yes Guardianship: Yes Interim History: The nursing staff reported no changes in mental status. On interview the patient reports that he wants to go back home I explained him that he does not have a place and he has a guardian he does not want to be placed. Unable to process new information. Mental Status Exam Mental Status Exam Patient Appearance: Appropriate Patient Orientation: Person and Situation Level of Consciousness: Awake and Appropriate Patient Behavior: Guarded and Passive Mood Description: Withdrawn Affect Description: Calm Patient Cognition Impaired: Yes Ability to Follow Directions: Good Speech Pattern: Clear Hallucinations: None Delusions: Not Present Thought Process: Distracted and Slowed Thinking Thought Content: positive for [place] and positive for Poverty of Content Judgement: Fair Diagnostics Vital Signs (24Hr): Vital Signs - 24 hr 11/11/23 20:00 11/12/23 07:55 Temperature 97.4 F 98.2 F Pulse Rate 74 72 Respiratory Rate 16 18 Blood Pressure 126/61 152/79 H Pulse Oximetry 95 96 Oxygen Delivery Method Room Air Room Air BMI result Body Mass Index 24.0 Labs 10/16/23 16:18 10/16/23 16:18 Imaging Radiology Impressions: ITS Impressions Shoulder X-Ray 07/30/23 09:55 IMPRESSION: 1. No metallic foreign body. 2. Calcification adjacent to the humeral head likely on the basis of calcific tendinosis. Orbit X-Ray 07/30/23 11:07 IMPRESSION: 1. No unexpected radiopaque foreign bodies. 2. Clear lungs. 3. Nonobstructive bowel gas pattern. 4. Moderate to large degree of colonic stool burden. Brain MRI 07/30/23 20:40 IMPRESSION: No acute intracranial abnormality. No findings to suggest Wernicke encephalopathy. Hand X-Ray 08/26/23 09:05 IMPRESSION: No fracture seen. Medications Medications Current Medications Acetaminophen (Acetaminophen 325 Mg Tablet) 650 mg PO Q6H PRN PRN Reason: Headache/Pain (1-10) Last Admin: 11/04/23 15:23 Dose: 650 mg Al Hydroxide/Mg Hydroxide (Magnesium Hydrox/Alum Hydrox 30 Ml Oral.Susp) 30 ml PO Q6H PRN PRN Reason: Heartburn/Nausea Last Admin: 11/09/23 21:34 Dose: 30 ml Artificial Tears (Artificial Tears 15 Ml Drops) 1 drop EYE-BOTH Q4H PRN PRN Reason: Dry Eyes Last Admin: 11/11/23 20:33 Dose: 1 drop Benzocaine (Throat Lozenge, Medicated Lozenge) 1 lozenge MUCOUS MEM Q4H PRN PRN Reason: Sore Throat Brimonidine Tartrate (Brimonidine Tartrate 0.2% Oph 5 Ml Bottle) 1 drop EYE- BOTH TID [facility] Last Admin: 11/12/23 15:05 Dose: 1 drop Donepezil HCl (Donepezil Hcl 10 Mg Tablet) 10 mg PO BEDTIME [facility] Last Admin: 11/11/23 20:23 Dose: 10 mg Guaifenesin (Guaifenesin 200 Mg/10 Ml 10 Ml Liquid) 10 ml PO Q6H PRN PRN Reason: Cough Last Admin: 09/05/23 23:21 Dose: 10 ml Lidocaine (Lidocaine 4 % Patch Adh..Patch) 2 patch TRANSDERMA DAILY PRN; Protocol PRN Reason: bilateral low back pain Last Admin: 09/26/23 04:27 Dose: 2 patch Magnesium Hydroxide (Milk Of Magnesia 30 Ml Oral.Susp) 30 ml PO DAILY PRN PRN Reason: Constipation Last Admin: 08/23/23 08:41 Dose: 30 ml Memantine (Memantine Hcl 10 Mg Tablet) 10 mg PO BID [facility] Last Admin: 11/12/23 08:25 Dose: 10 mg Quetiapine Fumarate (Quetiapine Fumarate 25 Mg Tablet) 25 mg PO BID PRN PRN Reason: anxiety/agitation Last Admin: 11/10/23 13:21 Dose: 25 mg Quetiapine Fumarate (Quetiapine Fumarate 25 Mg Tablet) 12.5 mg PO BID@0830,1330 [facility] Last Admin: 11/12/23 13:11 Dose: 12.5 mg Quetiapine Fumarate (Quetiapine Fumarate 50 Mg Tablet) 50 mg PO BEDTIME [facility] Last Admin: 11/11/23 20:23 Dose: 50 mg Quetiapine Fumarate (Quetiapine Fumarate 50 Mg Tablet) 50 mg PO DAILY@1700 [facility] Last Admin: 11/11/23 18:06 Dose: 50 mg Sertraline HCl (Sertraline Hcl 25 Mg Tablet) 25 mg PO DAILY [facility] Last Admin: 11/12/23 08:25 Dose: 25 mg Sumatriptan Succinate (Sumatriptan Succinate 50 Mg Tablet) 50 mg PO DAILY MRX1 PRN PRN Reason: Migraine Headache Last Admin: 11/02/23 14:24 Dose: 50 mg Thiamine HCl (Thiamine Hcl 100 Mg Tablet) 100 mg PO DAILY [facility] Last Admin: 11/12/23 08:25 Dose: 100 mg Trazodone HCl (Trazodone Hcl 50 Mg Tablet) 50 mg PO BEDTIME MRX1 PRN PRN Reason: Insomnia Last Admin: 11/11/23 20:23 Dose: 50 mg Allergies Allergies Allergy/AdvReac Type Severity Reaction Status Date / Time Sulfa (Sulfonamide Allergy Severe ANAPHYLAXIS Verified 08/25/23 23:13 Antibiotics) [SULFA (SULFONAMIDE ANTIBIOTICS)] mold Allergy Intermediate Shortness Verified 08/25/23 22:42 of Breath Assessment & Plan Assessment & Plan (1) Alcohol abuse with alcohol-induced mental disorder: Status: Acute Code(s): F10.188 - Alcohol abuse with other alcohol-induced disorder Plan The patient is a 78-year-old male with a past history of alcohol use disorder who was brought to the emergency room of another hospital for psychotic symptoms at the this moment currently denies. 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 Plan 1. Continue same treatment. 2. Waiting for placement. Reason for continued inpatient stay Substantial Risk for: inability to function, rapid decompensation and med/psych decompensation Time Spent With Patient Time: Total time managing care of this patient today __20__ minutes.
[2023-11-12] MEDS: QUEtiapine Fumarate 50 MG TABLET PO ×2 (17:39→20:11)
[2023-11-12 20:00] VITALS: BP 131/62; PULSE 65; RESP 18; TEMP 36.2; O2SAT 95
[2023-11-12] MEDS: Donepezil HCl 10 MG TABLET PO (20:11)
[2023-11-12] MEDS: traZODone HCL 50 MG TABLET PO (20:11)
[2023-11-13 08:35] VITALS: BP 129/68; PULSE 76; RESP 16; TEMP 36.2; O2SAT 94
[2023-11-13 08:56] VITALS: BMI 23.7
[2023-11-13] MEDS: Memantine HCl 10 MG TABLET PO ×2 (09:02→20:26)
[2023-11-13] MEDS: Sertraline HCL 25 MG TABLET PO (09:02)
[2023-11-13] MEDS: Thiamine HCL 100 MG TABLET PO (09:02)
[2023-11-13] MEDS: QUEtiapine Fumarate 25 MG TABLET 12.5 MG PO ×2 (09:02→14:06)
[2023-11-13] MEDS: Brimonidine Tartrate 0.2% Oph 5 ML BOTTLE 1 DROP EYE-BOTH ×3 (09:03→20:26)
--- NOTE | 2023-11-13 09:19 | HO.PSYCHPN ---
Subjective Subjective Date of Service: 11/13/23 Reason For Visit: Wernicke-Korsakoff Syndrome Subjective Notes: Conditional Voluntary Interim History: The nursing staff reported the patient remains confused, complaining were that he lost his wallet. Unable to process new information. On interview the patient wants to be discharged to his home but he is not aware that he ready lost his apartment and he is for placement. He is unable to remember previous discussions. Mental Status Exam Mental Status Exam Patient Appearance: Appropriate Patient Orientation: Person and Situation Level of Consciousness: Awake and Appropriate Patient Behavior: Appropriate and Cooperative Mood Description: Calm Affect Description: Constricted Patient Cognition Impaired: Yes Ability to Follow Directions: Good Speech Pattern: Clear Hallucinations: None Delusions: Not Present Thought Process: Distracted and Slowed Thinking Thought Content: positive for [place] and positive for Poverty of Content Judgement: Poor Diagnostics Vital Signs (24Hr): Vital Signs - 24 hr 11/12/23 20:00 11/13/23 08:35 Temperature 97.2 F 97.2 F Pulse Rate 65 76 Respiratory Rate 18 16 Blood Pressure 131/62 129/68 Pulse Oximetry 95 94 Oxygen Delivery Method Room Air Room Air BMI result Body Mass Index 23.7 Labs 10/16/23 16:18 10/16/23 16:18 Imaging Radiology Impressions: ITS Impressions Shoulder X-Ray 07/30/23 09:55 IMPRESSION: 1. No metallic foreign body. 2. Calcification adjacent to the humeral head likely on the basis of calcific tendinosis. Orbit X-Ray 07/30/23 11:07 IMPRESSION: 1. No unexpected radiopaque foreign bodies. 2. Clear lungs. 3. Nonobstructive bowel gas pattern. 4. Moderate to large degree of colonic stool burden. Brain MRI 07/30/23 20:40 IMPRESSION: No acute intracranial abnormality. No findings to suggest Wernicke encephalopathy. Hand X-Ray 08/26/23 09:05 IMPRESSION: No fracture seen. Medications Medications Current Medications Acetaminophen (Acetaminophen 325 Mg Tablet) 650 mg PO Q6H PRN PRN Reason: Headache/Pain (1-10) Last Admin: 11/04/23 15:23 Dose: 650 mg Al Hydroxide/Mg Hydroxide (Magnesium Hydrox/Alum Hydrox 30 Ml Oral.Susp) 30 ml PO Q6H PRN PRN Reason: Heartburn/Nausea Last Admin: 11/09/23 21:34 Dose: 30 ml Artificial Tears (Artificial Tears 15 Ml Drops) 1 drop EYE-BOTH Q4H PRN PRN Reason: Dry Eyes Last Admin: 11/11/23 20:33 Dose: 1 drop Benzocaine (Throat Lozenge, Medicated Lozenge) 1 lozenge MUCOUS MEM Q4H PRN PRN Reason: Sore Throat Brimonidine Tartrate (Brimonidine Tartrate 0.2% Oph 5 Ml Bottle) 1 drop EYE-BOTH TID [facility] Last Admin: 11/13/23 09:03 Dose: 1 drop Donepezil HCl (Donepezil Hcl 10 Mg Tablet) 10 mg PO BEDTIME [facility] Last Admin: 11/12/23 20:11 Dose: 10 mg Guaifenesin (Guaifenesin 200 Mg/10 Ml 10 Ml Liquid) 10 ml PO Q6H PRN PRN Reason: Cough Last Admin: 09/05/23 23:21 Dose: 10 ml Lidocaine (Lidocaine 4 % Patch Adh..Patch) 2 patch TRANSDERMA DAILY PRN; Protocol PRN Reason: bilateral low back pain Last Admin: 09/26/23 04:27 Dose: 2 patch Magnesium Hydroxide (Milk Of Magnesia 30 Ml Oral.Susp) 30 ml PO DAILY PRN PRN Reason: Constipation Last Admin: 08/23/23 08:41 Dose: 30 ml Memantine (Memantine Hcl 10 Mg Tablet) 10 mg PO BID [facility] Last Admin: 11/13/23 09:02 Dose: 10 mg Quetiapine Fumarate (Quetiapine Fumarate 25 Mg Tablet) 25 mg PO BID PRN PRN Reason: anxiety/agitation Last Admin: 11/10/23 13:21 Dose: 25 mg Quetiapine Fumarate (Quetiapine Fumarate 25 Mg Tablet) 12.5 mg PO BID@0830,1330 [facility] Last Admin: 11/13/23 09:02 Dose: 12.5 mg Quetiapine Fumarate (Quetiapine Fumarate 50 Mg Tablet) 50 mg PO BEDTIME [facility] Last Admin: 11/12/23 20:11 Dose: 50 mg Quetiapine Fumarate (Quetiapine Fumarate 50 Mg Tablet) 50 mg PO DAILY@1700 [facility] Last Admin: 11/12/23 17:39 Dose: 50 mg Sertraline HCl (Sertraline Hcl 25 Mg Tablet) 25 mg PO DAILY [facility] Last Admin: 11/13/23 09:02 Dose: 25 mg Sumatriptan Succinate (Sumatriptan Succinate 50 Mg Tablet) 50 mg PO DAILY MRX1 PRN PRN Reason: Migraine Headache Last Admin: 11/02/23 14:24 Dose: 50 mg Thiamine HCl (Thiamine Hcl 100 Mg Tablet) 100 mg PO DAILY [facility] Last Admin: 11/13/23 09:02 Dose: 100 mg Trazodone HCl (Trazodone Hcl 50 Mg Tablet) 50 mg PO BEDTIME MRX1 PRN PRN Reason: Insomnia Last Admin: 11/12/23 20:11 Dose: 50 mg Allergies Allergies Allergy/AdvReac Type Severity Reaction Status Date / Time Sulfa (Sulfonamide Allergy Severe ANAPHYLAXIS Verified 08/25/23 23:13 Antibiotics) [SULFA (SULFONAMIDE ANTIBIOTICS)] mold Allergy Intermediate Shortness Verified 08/25/23 22:42 of Breath Assessment & Plan Assessment & Plan (1) Dementia: Status: Acute Code(s): F03.90 - Unspecified dementia, unspecified severity, without behavioral disturbance, psychotic disturbance, mood disturbance, and anxiety (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 Plan 1. Continue same treatment. 2. Waiting for placement. Reason for continued inpatient stay Substantial Risk for: inability to function, rapid decompensation and med/psych decompensation Time Spent With Patient Time: Total time managing care of this patient today __20__ minutes.
[2023-11-13] MEDS: QUEtiapine Fumarate 50 MG TABLET PO ×2 (17:14→20:27)
[2023-11-13 20:00] VITALS: BP 136/62; PULSE 94; RESP 18; TEMP 36; O2SAT 95
[2023-11-13] MEDS: Donepezil HCl 10 MG TABLET PO (20:26)
[2023-11-13] MEDS: traZODone HCL 50 MG TABLET PO (20:27)
[2023-11-14 08:00] VITALS: BP 102/61; PULSE 86; RESP 17; TEMP 36.3; O2SAT 98
[2023-11-14] MEDS: Sertraline HCL 25 MG TABLET PO (08:46)
[2023-11-14] MEDS: Thiamine HCL 100 MG TABLET PO (08:46)
[2023-11-14] MEDS: QUEtiapine Fumarate 25 MG TABLET 12.5 MG PO ×2 (08:46→14:15)
[2023-11-14] MEDS: Memantine HCl 10 MG TABLET PO ×2 (08:46→20:03)
[2023-11-14] MEDS: Brimonidine Tartrate 0.2% Oph 5 ML BOTTLE 1 DROP EYE-BOTH ×3 (08:48→20:05)
--- NOTE | 2023-11-14 16:12 | HO.PSYCHPN ---
Subjective Subjective Date of Service: 11/14/23 Reason For Visit: Wernicke-Korsakoff Syndrome Subjective Notes: Conditional Voluntary Interim History: The nursing staff reported no changes in his mental status confused as usual asking for his wallet. On interview the patient denies new symptoms, waiting for placement. Mental Status Exam Mental Status Exam Patient Appearance: Appropriate Patient Orientation: Person and Situation Level of Consciousness: Awake and Appropriate Patient Behavior: Guarded and Passive Mood Description: Withdrawn Affect Description: Constricted Patient Cognition Impaired: Yes Ability to Follow Directions: Good Speech Pattern: Clear Hallucinations: None Delusions: Not Present Thought Process: Distracted and Slowed Thinking Thought Content: positive for [place] and positive for Poverty of Content Judgement: Fair Diagnostics Vital Signs (24Hr): Vital Signs - 24 hr 11/13/23 20:00 11/14/23 08:00 Temperature 96.8 F 97.3 F Pulse Rate 94 86 Respiratory Rate 18 17 Blood Pressure 136/62 102/61 Pulse Oximetry 95 98 Oxygen Delivery Method Room Air Room Air BMI result Body Mass Index 23.7 Labs 10/16/23 16:18 10/16/23 16:18 Imaging Radiology Impressions: ITS Impressions Shoulder X-Ray 07/30/23 09:55 IMPRESSION: 1. No metallic foreign body. 2. Calcification adjacent to the humeral head likely on the basis of calcific tendinosis. Orbit X-Ray 07/30/23 11:07 IMPRESSION: 1. No unexpected radiopaque foreign bodies. 2. Clear lungs. 3. Nonobstructive bowel gas pattern. 4. Moderate to large degree of colonic stool burden. Brain MRI 07/30/23 20:40 IMPRESSION: No acute intracranial abnormality. No findings to suggest Wernicke encephalopathy. Hand X-Ray 08/26/23 09:05 IMPRESSION: No fracture seen. Medications Medications Current Medications Acetaminophen (Acetaminophen 325 Mg Tablet) 650 mg PO Q6H PRN PRN Reason: Headache/Pain (1-10) Last Admin: 11/04/23 15:23 Dose: 650 mg Al Hydroxide/Mg Hydroxide (Magnesium Hydrox/Alum Hydrox 30 Ml Oral.Susp) 30 ml PO Q6H PRN PRN Reason: Heartburn/Nausea Last Admin: 11/09/23 21:34 Dose: 30 ml Artificial Tears (Artificial Tears 15 Ml Drops) 1 drop EYE-BOTH Q4H PRN PRN Reason: Dry Eyes Last Admin: 11/11/23 20:33 Dose: 1 drop Benzocaine (Throat Lozenge, Medicated Lozenge) 1 lozenge MUCOUS MEM Q4H PRN PRN Reason: Sore Throat Brimonidine Tartrate (Brimonidine Tartrate 0.2% Oph 5 Ml Bottle) 1 drop EYE-BOTH TID [facility] Last Admin: 11/14/23 14:16 Dose: 1 drop Donepezil HCl (Donepezil Hcl 10 Mg Tablet) 10 mg PO BEDTIME [facility] Last Admin: 11/13/23 20:26 Dose: 10 mg Guaifenesin (Guaifenesin 200 Mg/10 Ml 10 Ml Liquid) 10 ml PO Q6H PRN PRN Reason: Cough Last Admin: 09/05/23 23:21 Dose: 10 ml Lidocaine (Lidocaine 4 % Patch Adh..Patch) 2 patch TRANSDERMA DAILY PRN; Protocol PRN Reason: bilateral low back pain Last Admin: 09/26/23 04:27 Dose: 2 patch Magnesium Hydroxide (Milk Of Magnesia 30 Ml Oral.Susp) 30 ml PO DAILY PRN PRN Reason: Constipation Last Admin: 08/23/23 08:41 Dose: 30 ml Memantine (Memantine Hcl 10 Mg Tablet) 10 mg PO BID [facility] Last Admin: 11/14/23 08:46 Dose: 10 mg Quetiapine Fumarate (Quetiapine Fumarate 25 Mg Tablet) 25 mg PO BID PRN PRN Reason: anxiety/agitation Last Admin: 11/10/23 13:21 Dose: 25 mg Quetiapine Fumarate (Quetiapine Fumarate 25 Mg Tablet) 12.5 mg PO BID@0830,1330 [facility] Last Admin: 11/14/23 14:15 Dose: 12.5 mg Quetiapine Fumarate (Quetiapine Fumarate 50 Mg Tablet) 50 mg PO BEDTIME [facility] Last Admin: 11/13/23 20:27 Dose: 50 mg Quetiapine Fumarate (Quetiapine Fumarate 50 Mg Tablet) 50 mg PO DAILY@1700 [facility] Last Admin: 11/13/23 17:14 Dose: 50 mg Sertraline HCl (Sertraline Hcl 25 Mg Tablet) 25 mg PO DAILY [facility] Last Admin: 11/14/23 08:46 Dose: 25 mg Sumatriptan Succinate (Sumatriptan Succinate 50 Mg Tablet) 50 mg PO DAILY MRX1 PRN PRN Reason: Migraine Headache Last Admin: 11/02/23 14:24 Dose: 50 mg Thiamine HCl (Thiamine Hcl 100 Mg Tablet) 100 mg PO DAILY [facility] Last Admin: 11/14/23 08:46 Dose: 100 mg Trazodone HCl (Trazodone Hcl 50 Mg Tablet) 50 mg PO BEDTIME MRX1 PRN PRN Reason: Insomnia Last Admin: 11/13/23 20:27 Dose: 50 mg Allergies Allergies Allergy/AdvReac Type Severity Reaction Status Date / Time Sulfa (Sulfonamide Allergy Severe ANAPHYLAXIS Verified 08/25/23 23:13 Antibiotics) [SULFA (SULFONAMIDE ANTIBIOTICS)] mold Allergy Intermediate Shortness Verified 08/25/23 22:42 of Breath Assessment & Plan Assessment & Plan (1) Dementia: Status: Acute Code(s): F03.90 - Unspecified dementia, unspecified severity, without behavioral disturbance, psychotic disturbance, mood disturbance, and anxiety (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 Plan 1. Continue same treatment. 2. Waiting for placement. Reason for continued inpatient stay Substantial Risk for: inability to function, rapid decompensation and med/psych decompensation Time Spent With Patient Time: Total time managing care of this patient today __20__ minutes.
[2023-11-14] MEDS: QUEtiapine Fumarate 50 MG TABLET PO ×2 (17:13→20:03)
[2023-11-14 20:00] VITALS: BP 138/64; PULSE 71; RESP 16; TEMP 36.4; O2SAT 95
[2023-11-14] MEDS: Donepezil HCl 10 MG TABLET PO (20:03)
[2023-11-15] MEDS: SUMAtriptan succinate 50 MG TABLET PO (06:36)
[2023-11-15 08:30] VITALS: BP 148/69; PULSE 72; RESP 18; TEMP 36.6; O2SAT 96
[2023-11-15] MEDS: QUEtiapine Fumarate 25 MG TABLET 12.5 MG PO ×2 (08:32→15:02)
[2023-11-15] MEDS: Memantine HCl 10 MG TABLET PO ×2 (08:33→20:23)
[2023-11-15] MEDS: Thiamine HCL 100 MG TABLET PO (08:33)
[2023-11-15] MEDS: Sertraline HCL 25 MG TABLET PO (08:33)
[2023-11-15] MEDS: Brimonidine Tartrate 0.2% Oph 5 ML BOTTLE 1 DROP EYE-BOTH ×3 (08:33→20:22)
--- NOTE | 2023-11-15 12:13 | P.PNPSI_ITS ---
Subjective Subjective Date of Service: 11/15/23 Reason For Visit: Wernicke-Korsakoff Syndrome Subjective Notes: Conditional Voluntary Interim History: Patient was seen and discussed in rounds today. Records and plans were reviewed. Two of his medications were renewed. He continues to be preoccupied with discharge and asked a lot of questions about it. He has been stable, medication compliant. No complaints or side effects. No behavioral issues. No other changes were made Review of Systems Review of Systems Yes all other systems are reviewed and are negative Mental Status Exam Mental Status Exam Patient Appearance: Appropriate Patient Orientation: Person and Situation Level of Consciousness: Awake and Appropriate Patient Behavior: Guarded and Passive Mood Description: Withdrawn Affect Description: Constricted Patient Cognition Impaired: Yes Ability to Follow Directions: Good Speech Pattern: Clear Hallucinations: None Delusions: Not Present Thought Process: Distracted and Slowed Thinking Thought Content: positive for [place] and positive for Poverty of Content Judgement: Fair Diagnostics Vital Signs (24Hr): Vital Signs - 24 hr 11/14/23 20:00 11/15/23 08:30 Temperature 97.5 F 97.9 F Pulse Rate 71 72 Respiratory Rate 16 18 Blood Pressure 138/64 148/69 H Pulse Oximetry 95 96 Oxygen Delivery Method Room Air Room Air BMI result Body Mass Index 23.7 Labs 10/16/23 16:18 10/16/23 16:18 Imaging Radiology Impressions: ITS Impressions Shoulder X-Ray 07/30/23 09:55 IMPRESSION: 1. No metallic foreign body. 2. Calcification adjacent to the humeral head likely on the basis of calcific tendinosis. Orbit X-Ray 07/30/23 11:07 IMPRESSION: 1. No unexpected radiopaque foreign bodies. 2. Clear lungs. 3. Nonobstructive bowel gas pattern. 4. Moderate to large degree of colonic stool burden. Brain MRI 07/30/23 20:40 IMPRESSION: No acute intracranial abnormality. No findings to suggest Wernicke encephalopathy. Hand X-Ray 08/26/23 09:05 IMPRESSION: No fracture seen. Medications Medications Current Medications Acetaminophen (Acetaminophen 325 Mg Tablet) 650 mg PO Q6H PRN PRN Reason: Headache/Pain (1-10) Last Admin: 11/04/23 15:23 Dose: 650 mg Al Hydroxide/Mg Hydroxide (Magnesium Hydrox/Alum Hydrox 30 Ml Oral.Susp) 30 ml PO Q6H PRN PRN Reason: Heartburn/Nausea Last Admin: 11/09/23 21:34 Dose: 30 ml Artificial Tears (Artificial Tears 15 Ml Drops) 1 drop EYE-BOTH Q4H PRN PRN Reason: Dry Eyes Last Admin: 11/11/23 20:33 Dose: 1 drop Benzocaine (Throat Lozenge, Medicated Lozenge) 1 lozenge MUCOUS MEM Q4H PRN PRN Reason: Sore Throat Brimonidine Tartrate (Brimonidine Tartrate 0.2% Oph 5 Ml Bottle) 1 drop EYE- BOTH TID [facility] Last Admin: 11/15/23 08:33 Dose: 1 drop Donepezil HCl (Donepezil Hcl 10 Mg Tablet) 10 mg PO BEDTIME [facility] Last Admin: 11/14/23 20:03 Dose: 10 mg Guaifenesin (Guaifenesin 200 Mg/10 Ml 10 Ml Liquid) 10 ml PO Q6H PRN PRN Reason: Cough Last Admin: 09/05/23 23:21 Dose: 10 ml Lidocaine (Lidocaine 4 % Patch Adh..Patch) 2 patch TRANSDERMA DAILY PRN; Protocol PRN Reason: bilateral low back pain Last Admin: 09/26/23 04:27 Dose: 2 patch Magnesium Hydroxide (Milk Of Magnesia 30 Ml Oral.Susp) 30 ml PO DAILY PRN PRN Reason: Constipation Last Admin: 08/23/23 08:41 Dose: 30 ml Memantine (Memantine Hcl 10 Mg Tablet) 10 mg PO BID [facility] Last Admin: 11/15/23 08:33 Dose: 10 mg Quetiapine Fumarate (Quetiapine Fumarate 25 Mg Tablet) 25 mg PO BID PRN PRN Reason: anxiety/agitation Last Admin: 11/10/23 13:21 Dose: 25 mg Quetiapine Fumarate (Quetiapine Fumarate 25 Mg Tablet) 12.5 mg PO BID@0830,1330 [facility] Last Admin: 11/15/23 08:32 Dose: 12.5 mg Quetiapine Fumarate (Quetiapine Fumarate 50 Mg Tablet) 50 mg PO BEDTIME [facility] Last Admin: 11/14/23 20:03 Dose: 50 mg Quetiapine Fumarate (Quetiapine Fumarate 50 Mg Tablet) 50 mg PO DAILY@1700 [facility] Last Admin: 11/14/23 17:13 Dose: 50 mg Sertraline HCl (Sertraline Hcl 25 Mg Tablet) 25 mg PO DAILY [facility] Last Admin: 11/15/23 08:33 Dose: 25 mg Sumatriptan Succinate (Sumatriptan Succinate 50 Mg Tablet) 50 mg PO DAILY MRX1 PRN PRN Reason: Migraine Headache Last Admin: 11/15/23 06:36 Dose: 50 mg Thiamine HCl (Thiamine Hcl 100 Mg Tablet) 100 mg PO DAILY [facility] Last Admin: 11/15/23 08:33 Dose: 100 mg Trazodone HCl (Trazodone Hcl 50 Mg Tablet) 50 mg PO BEDTIME MRX1 PRN PRN Reason: Insomnia Last Admin: 11/13/23 20:27 Dose: 50 mg Allergies Allergies Allergy/AdvReac Type Severity Reaction Status Date / Time Sulfa (Sulfonamide Allergy Severe ANAPHYLAXIS Verified 08/25/23 23:13 Antibiotics) [SULFA (SULFONAMIDE ANTIBIOTICS)] mold Allergy Intermediate Shortness Verified 08/25/23 22:42 of Breath Assessment & Plan Assessment & Plan (1) Dementia: Status: Acute Code(s): F03.90 - Unspecified dementia, unspecified severity, without behavioral disturbance, psychotic disturbance, mood disturbance, and anxiety (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 Plan 1. Continue same treatment. 2. Waiting for placement. 11/14: Continue current regimen and plans Reason for continued inpatient stay Substantial Risk for: med/psych decompensation Time Spent With Patient Time: Total time managing care of this patient today ____ minutes.
[2023-11-15] MEDS: QUEtiapine Fumarate 50 MG TABLET PO ×2 (16:42→20:23)
[2023-11-15 20:00] VITALS: BP 148/70; PULSE 81; RESP 16; TEMP 36.6; O2SAT 96
[2023-11-15] MEDS: traZODone HCL 50 MG TABLET PO (20:23)
[2023-11-15] MEDS: Donepezil HCl 10 MG TABLET PO (20:23)
[2023-11-16 08:00] VITALS: BP 122/55; PULSE 63; RESP 16; TEMP 36.3; O2SAT 95
[2023-11-16] MEDS: QUEtiapine Fumarate 25 MG TABLET 12.5 MG PO ×2 (08:18→13:38)
[2023-11-16] MEDS: Sertraline HCL 25 MG TABLET PO (08:18)
[2023-11-16] MEDS: Thiamine HCL 100 MG TABLET PO (08:18)
[2023-11-16] MEDS: Brimonidine Tartrate 0.2% Oph 5 ML BOTTLE 1 DROP EYE-BOTH ×3 (08:20→20:58)
[2023-11-16] MEDS: Memantine HCl 10 MG TABLET PO ×2 (08:20→20:47)
--- NOTE | 2023-11-16 09:30 | P.PNPSI_ITS ---
Subjective Subjective Date of Service: 11/16/23 Reason For Visit: Wernicke-Korsakoff Syndrome Subjective Notes: Conditional Voluntary Interim History: Patient was seen and discussed in rounds today. Records and plans were reviewed. He has been stable. No behavioral problems. Sleeping and eating well. No complaints or side effects. Still asking questions about discharge which I referred to the team tomorrow. No changes were made today Review of Systems Review of Systems Yes all other systems are reviewed and are negative Mental Status Exam Mental Status Exam Patient Appearance: Appropriate Patient Orientation: Person and Situation Level of Consciousness: Awake and Appropriate Patient Behavior: Guarded and Passive Mood Description: Withdrawn Affect Description: Constricted Patient Cognition Impaired: Yes Ability to Follow Directions: Good Speech Pattern: Clear Hallucinations: None Delusions: Not Present Thought Process: Distracted and Slowed Thinking Thought Content: positive for [place] and positive for Poverty of Content Judgement: Fair Diagnostics Vital Signs (24Hr): Vital Signs - 24 hr 11/15/23 20:00 Temperature 97.8 F Pulse Rate 81 Respiratory Rate 16 Blood Pressure 148/70 H Pulse Oximetry 96 Oxygen Delivery Method Room Air BMI result Body Mass Index 23.7 Labs 10/16/23 16:18 10/16/23 16:18 Imaging Radiology Impressions: ITS Impressions Shoulder X-Ray 07/30/23 09:55 IMPRESSION: 1. No metallic foreign body. 2. Calcification adjacent to the humeral head likely on the basis of calcific tendinosis. Orbit X-Ray 07/30/23 11:07 IMPRESSION: 1. No unexpected radiopaque foreign bodies. 2. Clear lungs. 3. Nonobstructive bowel gas pattern. 4. Moderate to large degree of colonic stool burden. Brain MRI 07/30/23 20:40 IMPRESSION: No acute intracranial abnormality. No findings to suggest Wernicke encephalopathy. Hand X-Ray 08/26/23 09:05 IMPRESSION: No fracture seen. Medications Medications Current Medications Acetaminophen (Acetaminophen 325 Mg Tablet) 650 mg PO Q6H PRN PRN Reason: Headache/Pain (1-10) Last Admin: 11/04/23 15:23 Dose: 650 mg Al Hydroxide/Mg Hydroxide (Magnesium Hydrox/Alum Hydrox 30 Ml Oral.Susp) 30 ml PO Q6H PRN PRN Reason: Heartburn/Nausea Last Admin: 11/09/23 21:34 Dose: 30 ml Artificial Tears (Artificial Tears 15 Ml Drops) 1 drop EYE-BOTH Q4H PRN PRN Reason: Dry Eyes Last Admin: 11/11/23 20:33 Dose: 1 drop Benzocaine (Throat Lozenge, Medicated Lozenge) 1 lozenge MUCOUS MEM Q4H PRN PRN Reason: Sore Throat Brimonidine Tartrate (Brimonidine Tartrate 0.2% Oph 5 Ml Bottle) 1 drop EYE- BOTH TID [facility] Last Admin: 11/16/23 08:20 Dose: 1 drop Donepezil HCl (Donepezil Hcl 10 Mg Tablet) 10 mg PO BEDTIME [facility] Last Admin: 11/15/23 20:23 Dose: 10 mg Guaifenesin (Guaifenesin 200 Mg/10 Ml 10 Ml Liquid) 10 ml PO Q6H PRN PRN Reason: Cough Last Admin: 09/05/23 23:21 Dose: 10 ml Lidocaine (Lidocaine 4 % Patch Adh..Patch) 2 patch TRANSDERMA DAILY PRN; Protocol PRN Reason: bilateral low back pain Last Admin: 09/26/23 04:27 Dose: 2 patch Magnesium Hydroxide (Milk Of Magnesia 30 Ml Oral.Susp) 30 ml PO DAILY PRN PRN Reason: Constipation Last Admin: 08/23/23 08:41 Dose: 30 ml Memantine (Memantine Hcl 10 Mg Tablet) 10 mg PO BID [facility] Last Admin: 11/16/23 08:20 Dose: 10 mg Quetiapine Fumarate (Quetiapine Fumarate 25 Mg Tablet) 25 mg PO BID PRN PRN Reason: anxiety/agitation Last Admin: 11/10/23 13:21 Dose: 25 mg Quetiapine Fumarate (Quetiapine Fumarate 25 Mg Tablet) 12.5 mg PO BID@0830,1330 [facility] Last Admin: 11/16/23 08:18 Dose: 12.5 mg Quetiapine Fumarate (Quetiapine Fumarate 50 Mg Tablet) 50 mg PO BEDTIME [facility] Last Admin: 11/15/23 20:23 Dose: 50 mg Quetiapine Fumarate (Quetiapine Fumarate 50 Mg Tablet) 50 mg PO DAILY@1700 [facility] Last Admin: 11/15/23 16:42 Dose: 50 mg Sertraline HCl (Sertraline Hcl 25 Mg Tablet) 25 mg PO DAILY [facility] Last Admin: 11/16/23 08:18 Dose: 25 mg Sumatriptan Succinate (Sumatriptan Succinate 50 Mg Tablet) 50 mg PO DAILY MRX1 PRN PRN Reason: Migraine Headache Last Admin: 11/15/23 06:36 Dose: 50 mg Thiamine HCl (Thiamine Hcl 100 Mg Tablet) 100 mg PO DAILY [facility] Last Admin: 11/16/23 08:18 Dose: 100 mg Trazodone HCl (Trazodone Hcl 50 Mg Tablet) 50 mg PO BEDTIME MRX1 PRN PRN Reason: Insomnia Last Admin: 11/15/23 20:23 Dose: 50 mg Allergies Allergies Allergy/AdvReac Type Severity Reaction Status Date / Time Sulfa (Sulfonamide Allergy Severe ANAPHYLAXIS Verified 08/25/23 23:13 Antibiotics) [SULFA (SULFONAMIDE ANTIBIOTICS)] mold Allergy Intermediate Shortness Verified 08/25/23 22:42 of Breath Assessment & Plan Assessment & Plan (1) Dementia: Status: Acute Code(s): F03.90 - Unspecified dementia, unspecified severity, without behavioral disturbance, psychotic disturbance, mood disturbance, and anxiety (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 Plan 1. Continue same treatment. 2. Waiting for placement. 11/14: Continue current regimen and plans 11/15: Continue current regimen and plans Reason for continued inpatient stay Substantial Risk for: med/psych decompensation Time Spent With Patient Time: Total time managing care of this patient today ____ minutes.
[2023-11-16] MEDS: QUEtiapine Fumarate 50 MG TABLET PO ×2 (16:55→20:48)
[2023-11-16 20:00] VITALS: BP 130/71; PULSE 74; RESP 16; TEMP 36.6; O2SAT 94
[2023-11-16] MEDS: Donepezil HCl 10 MG TABLET PO (20:47)
[2023-11-16] MEDS: traZODone HCL 50 MG TABLET PO (20:48)
[2023-11-17 08:58] VITALS: BP 139/63; PULSE 73; RESP 17; TEMP 36.3; O2SAT 94
[2023-11-17] MEDS: Thiamine HCL 100 MG TABLET PO (09:00)
[2023-11-17] MEDS: Sertraline HCL 25 MG TABLET PO (09:00)
[2023-11-17] MEDS: Memantine HCl 10 MG TABLET PO ×2 (09:00→20:00)
[2023-11-17] MEDS: QUEtiapine Fumarate 25 MG TABLET 12.5 MG PO ×2 (09:00→13:53)
[2023-11-17] MEDS: Brimonidine Tartrate 0.2% Oph 5 ML BOTTLE 1 DROP EYE-BOTH ×3 (09:03→19:45)
[2023-11-17] MEDS: Acetaminophen 325 MG TABLET 650 MG PO (13:51)
--- NOTE | 2023-11-17 14:06 | HO.PSYCHPN ---
Subjective Subjective Date of Service: 11/17/23 Reason For Visit: Wernicke-Korsakoff Syndrome Subjective Notes: Conditional Voluntary Interim History: The nursing staff reported no changes in his mental status confused easily redirectable. The social media executive is looking for different facilities now. On interview the patient denies new symptoms, waiting for placement. Mental Status Exam Mental Status Exam Patient Appearance: Appropriate Patient Orientation: Person and Situation Level of Consciousness: Awake and Appropriate Patient Behavior: Guarded and Passive Mood Description: Withdrawn Affect Description: Constricted Patient Cognition Impaired: Yes Ability to Follow Directions: Good Speech Pattern: Clear Hallucinations: None Delusions: Not Present Thought Process: Distracted and Slowed Thinking Thought Content: positive for [place] and positive for Poverty of Content Judgement: Fair Diagnostics Vital Signs (24Hr): Vital Signs - 24 hr 11/16/23 20:00 11/17/23 08:58 Temperature 98 F 97.4 F Pulse Rate 74 73 Respiratory Rate 16 17 Blood Pressure 130/71 139/63 Pulse Oximetry 94 94 Oxygen Delivery Method Room Air Room Air BMI result Body Mass Index 23.7 Labs 10/16/23 16:18 10/16/23 16:18 Imaging Radiology Impressions: ITS Impressions Shoulder X-Ray 07/30/23 09:55 IMPRESSION: 1. No metallic foreign body. 2. Calcification adjacent to the humeral head likely on the basis of calcific tendinosis. Orbit X-Ray 07/30/23 11:07 IMPRESSION: 1. No unexpected radiopaque foreign bodies. 2. Clear lungs. 3. Nonobstructive bowel gas pattern. 4. Moderate to large degree of colonic stool burden. Brain MRI 07/30/23 20:40 IMPRESSION: No acute intracranial abnormality. No findings to suggest Wernicke encephalopathy. Hand X-Ray 08/26/23 09:05 IMPRESSION: No fracture seen. Medications Medications Current Medications Acetaminophen (Acetaminophen 325 Mg Tablet) 650 mg PO Q6H PRN PRN Reason: Headache/Pain (1-10) Last Admin: 11/17/23 13:51 Dose: 650 mg Al Hydroxide/Mg Hydroxide (Magnesium Hydrox/Alum Hydrox 30 Ml Oral.Susp) 30 ml PO Q6H PRN PRN Reason: Heartburn/Nausea Last Admin: 11/09/23 21:34 Dose: 30 ml Artificial Tears (Artificial Tears 15 Ml Drops) 1 drop EYE-BOTH Q4H PRN PRN Reason: Dry Eyes Last Admin: 11/11/23 20:33 Dose: 1 drop Benzocaine (Throat Lozenge, Medicated Lozenge) 1 lozenge MUCOUS MEM Q4H PRN PRN Reason: Sore Throat Brimonidine Tartrate (Brimonidine Tartrate 0.2% Oph 5 Ml Bottle) 1 drop EYE-BOTH TID [facility] Last Admin: 11/17/23 09:03 Dose: 1 drop Donepezil HCl (Donepezil Hcl 10 Mg Tablet) 10 mg PO BEDTIME [facility] Last Admin: 11/16/23 20:47 Dose: 10 mg Guaifenesin (Guaifenesin 200 Mg/10 Ml 10 Ml Liquid) 10 ml PO Q6H PRN PRN Reason: Cough Last Admin: 09/05/23 23:21 Dose: 10 ml Lidocaine (Lidocaine 4 % Patch Adh..Patch) 2 patch TRANSDERMA DAILY PRN; Protocol PRN Reason: bilateral low back pain Last Admin: 09/26/23 04:27 Dose: 2 patch Magnesium Hydroxide (Milk Of Magnesia 30 Ml Oral.Susp) 30 ml PO DAILY PRN PRN Reason: Constipation Last Admin: 08/23/23 08:41 Dose: 30 ml Memantine (Memantine Hcl 10 Mg Tablet) 10 mg PO BID [facility] Last Admin: 11/17/23 09:00 Dose: 10 mg Quetiapine Fumarate (Quetiapine Fumarate 25 Mg Tablet) 25 mg PO BID PRN PRN Reason: anxiety/agitation Last Admin: 11/10/23 13:21 Dose: 25 mg Quetiapine Fumarate (Quetiapine Fumarate 25 Mg Tablet) 12.5 mg PO BID@0830,1330 [facility] Last Admin: 11/17/23 13:53 Dose: 12.5 mg Quetiapine Fumarate (Quetiapine Fumarate 50 Mg Tablet) 50 mg PO BEDTIME [facility] Last Admin: 11/16/23 20:48 Dose: 50 mg Quetiapine Fumarate (Quetiapine Fumarate 50 Mg Tablet) 50 mg PO DAILY@1700 [facility] Last Admin: 11/16/23 16:55 Dose: 50 mg Sertraline HCl (Sertraline Hcl 25 Mg Tablet) 25 mg PO DAILY [facility] Last Admin: 11/17/23 09:00 Dose: 25 mg Sumatriptan Succinate (Sumatriptan Succinate 50 Mg Tablet) 50 mg PO DAILY MRX1 PRN PRN Reason: Migraine Headache Last Admin: 11/15/23 06:36 Dose: 50 mg Thiamine HCl (Thiamine Hcl 100 Mg Tablet) 100 mg PO DAILY [facility] Last Admin: 11/17/23 09:00 Dose: 100 mg Trazodone HCl (Trazodone Hcl 50 Mg Tablet) 50 mg PO BEDTIME MRX1 PRN PRN Reason: Insomnia Last Admin: 11/16/23 20:48 Dose: 50 mg Allergies Allergies Allergy/AdvReac Type Severity Reaction Status Date / Time Sulfa (Sulfonamide Allergy Severe ANAPHYLAXIS Verified 08/25/23 23:13 Antibiotics) [SULFA (SULFONAMIDE ANTIBIOTICS)] mold Allergy Intermediate Shortness Verified 08/25/23 22:42 of Breath Assessment & Plan Assessment & Plan (1) Dementia: Status: Acute Code(s): F03.90 - Unspecified dementia, unspecified severity, without behavioral disturbance, psychotic disturbance, mood disturbance, and anxiety (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 Plan 1. Continue same treatment. 2. Waiting for placement. Reason for continued inpatient stay Substantial Risk for: inability to function, rapid decompensation and med/psych decompensation Time Spent With Patient Time: Total time managing care of this patient today _20___ minutes.
[2023-11-17] MEDS: QUEtiapine Fumarate 50 MG TABLET PO ×2 (18:10→20:00)
[2023-11-17 20:00] VITALS: BP 128/62; PULSE 66; RESP 18; TEMP 36.1; O2SAT 94
[2023-11-17] MEDS: Donepezil HCl 10 MG TABLET PO (20:00)
[2023-11-18 08:00] VITALS: BP 128/76; PULSE 63; RESP 17; TEMP 36.2; O2SAT 95
[2023-11-18] MEDS: Thiamine HCL 100 MG TABLET PO (08:30)
[2023-11-18] MEDS: Memantine HCl 10 MG TABLET PO ×2 (08:30→20:19)
[2023-11-18] MEDS: Sertraline HCL 25 MG TABLET PO (08:30)
[2023-11-18] MEDS: QUEtiapine Fumarate 25 MG TABLET 12.5 MG PO ×2 (08:30→14:20)
[2023-11-18] MEDS: Brimonidine Tartrate 0.2% Oph 5 ML BOTTLE 1 DROP EYE-BOTH ×3 (08:31→20:18)
--- NOTE | 2023-11-18 12:28 | HO.PSYCHPN ---
Subjective Subjective Date of Service: 11/18/23 Reason For Visit: Wernicke-Korsakoff Syndrome Subjective Notes: Conditional Voluntary Interim History: The nursing staff reported the patient had been confused, slept 8 hours. The secondary social studies teacher reported that [facility] will contact the family for possible discharge On interview the patient denies new symptoms waiting for placement. Mental Status Exam Mental Status Exam Patient Appearance: Appropriate Patient Orientation: Person and Situation Level of Consciousness: Awake Patient Behavior: Cooperative and Passive Mood Description: Withdrawn Affect Description: Constricted Patient Cognition Impaired: Yes Ability to Follow Directions: Good Speech Pattern: Clear Hallucinations: None Delusions: Not Present Thought Process: Distracted and Slowed Thinking Thought Content: positive for [place] and positive for Poverty of Content Judgement: Fair Diagnostics Vital Signs (24Hr): Vital Signs - 24 hr 11/17/23 20:00 11/18/23 08:00 Temperature 96.9 F 97.2 F Pulse Rate 66 63 Respiratory Rate 18 17 Blood Pressure 128/62 128/76 Pulse Oximetry 94 95 Oxygen Delivery Method Room Air Room Air BMI result Body Mass Index 23.7 Labs 10/16/23 16:18 10/16/23 16:18 Imaging Radiology Impressions: ITS Impressions Shoulder X-Ray 07/30/23 09:55 IMPRESSION: 1. No metallic foreign body. 2. Calcification adjacent to the humeral head likely on the basis of calcific tendinosis. Orbit X-Ray 07/30/23 11:07 IMPRESSION: 1. No unexpected radiopaque foreign bodies. 2. Clear lungs. 3. Nonobstructive bowel gas pattern. 4. Moderate to large degree of colonic stool burden. Brain MRI 07/30/23 20:40 IMPRESSION: No acute intracranial abnormality. No findings to suggest Wernicke encephalopathy. Hand X-Ray 08/26/23 09:05 IMPRESSION: No fracture seen. Medications Medications Current Medications Acetaminophen (Acetaminophen 325 Mg Tablet) 650 mg PO Q6H PRN PRN Reason: Headache/Pain (1-10) Last Admin: 11/17/23 13:51 Dose: 650 mg Al Hydroxide/Mg Hydroxide (Magnesium Hydrox/Alum Hydrox 30 Ml Oral.Susp) 30 ml PO Q6H PRN PRN Reason: Heartburn/Nausea Last Admin: 11/09/23 21:34 Dose: 30 ml Artificial Tears (Artificial Tears 15 Ml Drops) 1 drop EYE-BOTH Q4H PRN PRN Reason: Dry Eyes Last Admin: 11/11/23 20:33 Dose: 1 drop Benzocaine (Throat Lozenge, Medicated Lozenge) 1 lozenge MUCOUS MEM Q4H PRN PRN Reason: Sore Throat Brimonidine Tartrate (Brimonidine Tartrate 0.2% Oph 5 Ml Bottle) 1 drop EYE-BOTH TID [facility] Last Admin: 11/18/23 08:31 Dose: 1 drop Donepezil HCl (Donepezil Hcl 10 Mg Tablet) 10 mg PO BEDTIME [facility] Last Admin: 11/17/23 20:00 Dose: 10 mg Guaifenesin (Guaifenesin 200 Mg/10 Ml 10 Ml Liquid) 10 ml PO Q6H PRN PRN Reason: Cough Last Admin: 09/05/23 23:21 Dose: 10 ml Lidocaine (Lidocaine 4 % Patch Adh..Patch) 2 patch TRANSDERMA DAILY PRN; Protocol PRN Reason: bilateral low back pain Last Admin: 09/26/23 04:27 Dose: 2 patch Magnesium Hydroxide (Milk Of Magnesia 30 Ml Oral.Susp) 30 ml PO DAILY PRN PRN Reason: Constipation Last Admin: 08/23/23 08:41 Dose: 30 ml Memantine (Memantine Hcl 10 Mg Tablet) 10 mg PO BID [facility] Last Admin: 11/18/23 08:30 Dose: 10 mg Quetiapine Fumarate (Quetiapine Fumarate 25 Mg Tablet) 25 mg PO BID PRN PRN Reason: anxiety/agitation Last Admin: 11/10/23 13:21 Dose: 25 mg Quetiapine Fumarate (Quetiapine Fumarate 25 Mg Tablet) 12.5 mg PO BID@0830,1330 [facility] Last Admin: 11/18/23 08:30 Dose: 12.5 mg Quetiapine Fumarate (Quetiapine Fumarate 50 Mg Tablet) 50 mg PO BEDTIME [facility] Last Admin: 11/17/23 20:00 Dose: 50 mg Quetiapine Fumarate (Quetiapine Fumarate 50 Mg Tablet) 50 mg PO DAILY@1700 [facility] Last Admin: 11/17/23 18:10 Dose: 50 mg Sertraline HCl (Sertraline Hcl 25 Mg Tablet) 25 mg PO DAILY [facility] Last Admin: 11/18/23 08:30 Dose: 25 mg Sumatriptan Succinate (Sumatriptan Succinate 50 Mg Tablet) 50 mg PO DAILY MRX1 PRN PRN Reason: Migraine Headache Last Admin: 11/15/23 06:36 Dose: 50 mg Thiamine HCl (Thiamine Hcl 100 Mg Tablet) 100 mg PO DAILY [facility] Last Admin: 11/18/23 08:30 Dose: 100 mg Trazodone HCl (Trazodone Hcl 50 Mg Tablet) 50 mg PO BEDTIME MRX1 PRN PRN Reason: Insomnia Last Admin: 11/16/23 20:48 Dose: 50 mg Allergies Allergies Allergy/AdvReac Type Severity Reaction Status Date / Time Sulfa (Sulfonamide Allergy Severe ANAPHYLAXIS Verified 08/25/23 23:13 Antibiotics) [SULFA (SULFONAMIDE ANTIBIOTICS)] mold Allergy Intermediate Shortness Verified 08/25/23 22:42 of Breath Assessment & Plan Assessment & Plan (1) Dementia: Status: Acute Code(s): F03.90 - Unspecified dementia, unspecified severity, without behavioral disturbance, psychotic disturbance, mood disturbance, and anxiety (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 Plan 1. Continue same treatment. 2. Waiting for placement. Reason for continued inpatient stay Substantial Risk for: inability to function, rapid decompensation and med/psych decompensation Time Spent With Patient Time: Total time managing care of this patient today __20__ minutes.
[2023-11-18] MEDS: QUEtiapine Fumarate 50 MG TABLET PO ×2 (16:52→20:19)
[2023-11-18 20:00] VITALS: BP 143/66; PULSE 77; RESP 16; TEMP 36.8; O2SAT 97
[2023-11-18] MEDS: traZODone HCL 50 MG TABLET PO (20:18)
[2023-11-18] MEDS: Donepezil HCl 10 MG TABLET PO (20:19)
[2023-11-19 07:54] VITALS: BP 133/65; PULSE 77; RESP 18; TEMP 37.2; O2SAT 94
[2023-11-19] MEDS: Brimonidine Tartrate 0.2% Oph 5 ML BOTTLE 1 DROP EYE-BOTH ×3 (08:36→19:54)
[2023-11-19] MEDS: Memantine HCl 10 MG TABLET PO ×2 (08:36→19:54)
[2023-11-19] MEDS: Sertraline HCL 25 MG TABLET PO (08:37)
[2023-11-19] MEDS: Thiamine HCL 100 MG TABLET PO (08:37)
[2023-11-19] MEDS: QUEtiapine Fumarate 25 MG TABLET 12.5 MG PO ×2 (08:37→13:44)
[2023-11-19] MEDS: SUMAtriptan succinate 50 MG TABLET PO (13:44)
--- NOTE | 2023-11-19 16:02 | HO.PSYCHPN ---
Subjective Subjective Date of Service: 11/19/23 Reason For Visit: Wernicke-Korsakoff Syndrome Subjective Notes: Conditional Voluntary Interim History: The nursing staff reported no changes in mental status, waiting for placement. On interview the patient denies new symptoms. The health care social worker reported that he was accepted to [facility]. Mental Status Exam Mental Status Exam Patient Appearance: Appropriate Patient Orientation: Person and Situation Level of Consciousness: Awake and Appropriate Patient Behavior: Guarded and Passive Mood Description: Withdrawn Affect Description: Constricted Patient Cognition Impaired: Yes Ability to Follow Directions: Good Speech Pattern: Clear Hallucinations: None Delusions: Not Present Thought Process: Distracted and Slowed Thinking Thought Content: positive for [place] and positive for Poverty of Content Judgement: Fair Diagnostics Vital Signs (24Hr): Vital Signs - 24 hr 11/18/23 20:00 11/19/23 07:54 Temperature 98.2 F 98.9 F Pulse Rate 77 77 Respiratory Rate 16 18 Blood Pressure 143/66 H 133/65 Pulse Oximetry 97 94 Oxygen Delivery Method Room Air Room Air BMI result Body Mass Index 23.7 Labs 10/16/23 16:18 10/16/23 16:18 Imaging Radiology Impressions: ITS Impressions Shoulder X-Ray 07/30/23 09:55 IMPRESSION: 1. No metallic foreign body. 2. Calcification adjacent to the humeral head likely on the basis of calcific tendinosis. Orbit X-Ray 07/30/23 11:07 IMPRESSION: 1. No unexpected radiopaque foreign bodies. 2. Clear lungs. 3. Nonobstructive bowel gas pattern. 4. Moderate to large degree of colonic stool burden. Brain MRI 07/30/23 20:40 IMPRESSION: No acute intracranial abnormality. No findings to suggest Wernicke encephalopathy. Hand X-Ray 08/26/23 09:05 IMPRESSION: No fracture seen. Medications Medications Current Medications Acetaminophen (Acetaminophen 325 Mg Tablet) 650 mg PO Q6H PRN PRN Reason: Headache/Pain (1-10) Last Admin: 11/17/23 13:51 Dose: 650 mg Al Hydroxide/Mg Hydroxide (Magnesium Hydrox/Alum Hydrox 30 Ml Oral.Susp) 30 ml PO Q6H PRN PRN Reason: Heartburn/Nausea Last Admin: 11/09/23 21:34 Dose: 30 ml Artificial Tears (Artificial Tears 15 Ml Drops) 1 drop EYE-BOTH Q4H PRN PRN Reason: Dry Eyes Last Admin: 11/11/23 20:33 Dose: 1 drop Benzocaine (Throat Lozenge, Medicated Lozenge) 1 lozenge MUCOUS MEM Q4H PRN PRN Reason: Sore Throat Brimonidine Tartrate (Brimonidine Tartrate 0.2% Oph 5 Ml Bottle) 1 drop EYE-BOTH TID [facility] Last Admin: 11/19/23 08:36 Dose: 1 drop Donepezil HCl (Donepezil Hcl 10 Mg Tablet) 10 mg PO BEDTIME [facility] Last Admin: 11/18/23 20:19 Dose: 10 mg Guaifenesin (Guaifenesin 200 Mg/10 Ml 10 Ml Liquid) 10 ml PO Q6H PRN PRN Reason: Cough Last Admin: 09/05/23 23:21 Dose: 10 ml Lidocaine (Lidocaine 4 % Patch Adh..Patch) 2 patch TRANSDERMA DAILY PRN; Protocol PRN Reason: bilateral low back pain Last Admin: 09/26/23 04:27 Dose: 2 patch Magnesium Hydroxide (Milk Of Magnesia 30 Ml Oral.Susp) 30 ml PO DAILY PRN PRN Reason: Constipation Last Admin: 08/23/23 08:41 Dose: 30 ml Memantine (Memantine Hcl 10 Mg Tablet) 10 mg PO BID [facility] Last Admin: 11/19/23 08:36 Dose: 10 mg Quetiapine Fumarate (Quetiapine Fumarate 25 Mg Tablet) 25 mg PO BID PRN PRN Reason: anxiety/agitation Last Admin: 11/10/23 13:21 Dose: 25 mg Quetiapine Fumarate (Quetiapine Fumarate 25 Mg Tablet) 12.5 mg PO BID@0830,1330 [facility] Last Admin: 11/19/23 13:44 Dose: 12.5 mg Quetiapine Fumarate (Quetiapine Fumarate 50 Mg Tablet) 50 mg PO BEDTIME [facility] Last Admin: 11/18/23 20:19 Dose: 50 mg Quetiapine Fumarate (Quetiapine Fumarate 50 Mg Tablet) 50 mg PO DAILY@1700 [facility] Last Admin: 11/18/23 16:52 Dose: 50 mg Sertraline HCl (Sertraline Hcl 25 Mg Tablet) 25 mg PO DAILY [facility] Last Admin: 11/19/23 08:37 Dose: 25 mg Sumatriptan Succinate (Sumatriptan Succinate 50 Mg Tablet) 50 mg PO DAILY MRX1 PRN PRN Reason: Migraine Headache Last Admin: 11/19/23 13:44 Dose: 50 mg Thiamine HCl (Thiamine Hcl 100 Mg Tablet) 100 mg PO DAILY [facility] Last Admin: 11/19/23 08:37 Dose: 100 mg Trazodone HCl (Trazodone Hcl 50 Mg Tablet) 50 mg PO BEDTIME MRX1 PRN PRN Reason: Insomnia Last Admin: 11/18/23 20:18 Dose: 50 mg Allergies Allergies Allergy/AdvReac Type Severity Reaction Status Date / Time Sulfa (Sulfonamide Allergy Severe ANAPHYLAXIS Verified 08/25/23 23:13 Antibiotics) [SULFA (SULFONAMIDE ANTIBIOTICS)] mold Allergy Intermediate Shortness Verified 08/25/23 22:42 of Breath Assessment & Plan Assessment & Plan (1) Dementia: Status: Acute Code(s): F03.90 - Unspecified dementia, unspecified severity, without behavioral disturbance, psychotic disturbance, mood disturbance, and anxiety (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 Plan 1. Continue same treatment. 2. Waiting for placement. Reason for continued inpatient stay Substantial Risk for: inability to function, rapid decompensation and med/psych decompensation Time Spent With Patient Time: Total time managing care of this patient today __20__ minutes.
[2023-11-19] MEDS: QUEtiapine Fumarate 50 MG TABLET PO ×2 (16:35→19:53)
[2023-11-19] MEDS: Donepezil HCl 10 MG TABLET PO (19:54)
[2023-11-19 20:00] VITALS: BP 117/61; PULSE 77; RESP 18; TEMP 36.4; O2SAT 96
[2023-11-20 08:28] VITALS: BP 138/70; PULSE 69; RESP 16; TEMP 36.3; O2SAT 97
[2023-11-20] MEDS: Memantine HCl 10 MG TABLET PO ×2 (09:29→20:56)
[2023-11-20] MEDS: QUEtiapine Fumarate 25 MG TABLET 12.5 MG PO ×2 (09:29→13:27)
[2023-11-20] MEDS: Sertraline HCL 25 MG TABLET PO (09:29)
[2023-11-20] MEDS: Thiamine HCL 100 MG TABLET PO (09:29)
[2023-11-20] MEDS: Brimonidine Tartrate 0.2% Oph 5 ML BOTTLE 1 DROP EYE-BOTH ×3 (09:29→20:55)
[2023-11-20 13:13] VITALS: BMI 24.1
--- NOTE | 2023-11-20 15:16 | HO.PSYCHPN ---
Subjective Subjective Date of Service: 11/20/23 Reason For Visit: Wernicke-Korsakoff Syndrome Subjective Notes: Conditional Voluntary Interim History: The nursing staff reported no changes in his mental status. The nursing home social worker reported that and fdc facilities interested in his case. Interview the patient denies new symptoms, waiting for placement. Mental Status Exam Mental Status Exam Patient Appearance: Well Grooomed Patient Orientation: Person and Situation Level of Consciousness: Awake and Appropriate Patient Behavior: Guarded and Passive Mood Description: Withdrawn Affect Description: Constricted Patient Cognition Impaired: Yes Ability to Follow Directions: Good Speech Pattern: Clear Hallucinations: None Delusions: Not Present Thought Process: Linear Thought Content: positive for [place] and positive for Poverty of Content Judgement: Poor Diagnostics Vital Signs (24Hr): Vital Signs - 24 hr 11/19/23 20:00 11/20/23 08:28 Temperature 97.6 F 97.3 F Pulse Rate 77 69 Respiratory Rate 18 16 Blood Pressure 117/61 138/70 Pulse Oximetry 96 97 Oxygen Delivery Method Room Air Room Air BMI result Body Mass Index 24.1 Labs 10/16/23 16:18 10/16/23 16:18 Imaging Radiology Impressions: ITS Impressions Shoulder X-Ray 07/30/23 09:55 IMPRESSION: 1. No metallic foreign body. 2. Calcification adjacent to the humeral head likely on the basis of calcific tendinosis. Orbit X-Ray 07/30/23 11:07 IMPRESSION: 1. No unexpected radiopaque foreign bodies. 2. Clear lungs. 3. Nonobstructive bowel gas pattern. 4. Moderate to large degree of colonic stool burden. Brain MRI 07/30/23 20:40 IMPRESSION: No acute intracranial abnormality. No findings to suggest Wernicke encephalopathy. Hand X-Ray 08/26/23 09:05 IMPRESSION: No fracture seen. Medications Medications Current Medications Acetaminophen (Acetaminophen 325 Mg Tablet) 650 mg PO Q6H PRN PRN Reason: Headache/Pain (1-10) Last Admin: 11/17/23 13:51 Dose: 650 mg Al Hydroxide/Mg Hydroxide (Magnesium Hydrox/Alum Hydrox 30 Ml Oral.Susp) 30 ml PO Q6H PRN PRN Reason: Heartburn/Nausea Last Admin: 11/09/23 21:34 Dose: 30 ml Artificial Tears (Artificial Tears 15 Ml Drops) 1 drop EYE-BOTH Q4H PRN PRN Reason: Dry Eyes Last Admin: 11/11/23 20:33 Dose: 1 drop Benzocaine (Throat Lozenge, Medicated Lozenge) 1 lozenge MUCOUS MEM Q4H PRN PRN Reason: Sore Throat Brimonidine Tartrate (Brimonidine Tartrate 0.2% Oph 5 Ml Bottle) 1 drop EYE-BOTH TID [facility] Last Admin: 11/20/23 09:29 Dose: 1 drop Donepezil HCl (Donepezil Hcl 10 Mg Tablet) 10 mg PO BEDTIME [facility] Last Admin: 11/19/23 19:54 Dose: 10 mg Guaifenesin (Guaifenesin 200 Mg/10 Ml 10 Ml Liquid) 10 ml PO Q6H PRN PRN Reason: Cough Last Admin: 09/05/23 23:21 Dose: 10 ml Lidocaine (Lidocaine 4 % Patch Adh..Patch) 2 patch TRANSDERMA DAILY PRN; Protocol PRN Reason: bilateral low back pain Last Admin: 09/26/23 04:27 Dose: 2 patch Magnesium Hydroxide (Milk Of Magnesia 30 Ml Oral.Susp) 30 ml PO DAILY PRN PRN Reason: Constipation Last Admin: 08/23/23 08:41 Dose: 30 ml Memantine (Memantine Hcl 10 Mg Tablet) 10 mg PO BID [facility] Last Admin: 11/20/23 09:29 Dose: 10 mg Quetiapine Fumarate (Quetiapine Fumarate 25 Mg Tablet) 25 mg PO BID PRN PRN Reason: anxiety/agitation Last Admin: 11/10/23 13:21 Dose: 25 mg Quetiapine Fumarate (Quetiapine Fumarate 25 Mg Tablet) 12.5 mg PO BID@0830,1330 [facility] Last Admin: 11/20/23 13:27 Dose: 12.5 mg Quetiapine Fumarate (Quetiapine Fumarate 50 Mg Tablet) 50 mg PO BEDTIME [facility] Last Admin: 11/19/23 19:53 Dose: 50 mg Quetiapine Fumarate (Quetiapine Fumarate 50 Mg Tablet) 50 mg PO DAILY@1700 [facility] Last Admin: 11/19/23 16:35 Dose: 50 mg Sertraline HCl (Sertraline Hcl 25 Mg Tablet) 25 mg PO DAILY [facility] Last Admin: 11/20/23 09:29 Dose: 25 mg Sumatriptan Succinate (Sumatriptan Succinate 50 Mg Tablet) 50 mg PO DAILY MRX1 PRN PRN Reason: Migraine Headache Last Admin: 11/19/23 13:44 Dose: 50 mg Thiamine HCl (Thiamine Hcl 100 Mg Tablet) 100 mg PO DAILY [facility] Last Admin: 11/20/23 09:29 Dose: 100 mg Trazodone HCl (Trazodone Hcl 50 Mg Tablet) 50 mg PO BEDTIME MRX1 PRN PRN Reason: Insomnia Last Admin: 11/18/23 20:18 Dose: 50 mg Allergies Allergies Allergy/AdvReac Type Severity Reaction Status Date / Time Sulfa (Sulfonamide Allergy Severe ANAPHYLAXIS Verified 08/25/23 23:13 Antibiotics) [SULFA (SULFONAMIDE ANTIBIOTICS)] mold Allergy Intermediate Shortness Verified 08/25/23 22:42 of Breath Assessment & Plan Assessment & Plan (1) Dementia: Status: Acute Code(s): F03.90 - Unspecified dementia, unspecified severity, without behavioral disturbance, psychotic disturbance, mood disturbance, and anxiety (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 Plan 1. Continue same treatment. 2. Waiting for placement. Reason for continued inpatient stay Substantial Risk for: inability to function, rapid decompensation and med/psych decompensation Time Spent With Patient Time: Total time managing care of this patient today __20__ minutes.
[2023-11-20] MEDS: QUEtiapine Fumarate 50 MG TABLET PO ×2 (16:45→20:56)
[2023-11-20 20:00] VITALS: BP 135/69; PULSE 75; RESP 18; TEMP 36.9; O2SAT 96
[2023-11-20] MEDS: Donepezil HCl 10 MG TABLET PO (20:55)
[2023-11-20] MEDS: traZODone HCL 50 MG TABLET PO ×2 (20:56→22:18)
[2023-11-20] MEDS: QUEtiapine Fumarate 25 MG TABLET PO (22:18)
[2023-11-21 08:12] VITALS: BP 119/76; PULSE 74; RESP 16; TEMP 36.1; O2SAT 95
[2023-11-21] MEDS: Sertraline HCL 25 MG TABLET PO (08:17)
[2023-11-21] MEDS: Thiamine HCL 100 MG TABLET PO (08:17)
[2023-11-21] MEDS: Brimonidine Tartrate 0.2% Oph 5 ML BOTTLE 1 DROP EYE-BOTH ×3 (08:18→20:28)
[2023-11-21] MEDS: Memantine HCl 10 MG TABLET PO ×2 (08:18→20:28)
[2023-11-21] MEDS: QUEtiapine Fumarate 25 MG TABLET 12.5 MG PO (08:18)
--- NOTE | 2023-11-21 16:30 | P.PNPSI_ITS ---
Subjective Subjective Date of Service: 11/21/23 Reason For Visit: Wernicke-Korsakoff Syndrome Subjective Notes: Conditional Voluntary Interim History: The nursing staff reported no changes in mental status. On interview the patient denies new symptoms, waiting for placement Mental Status Exam Mental Status Exam Patient Appearance: Appropriate Patient Orientation: Person and Situation Level of Consciousness: Awake and Appropriate Patient Behavior: Guarded and Passive Mood Description: Withdrawn Affect Description: Constricted Patient Cognition Impaired: Yes Ability to Follow Directions: Good Speech Pattern: Clear Hallucinations: None Delusions: Not Present Thought Content: positive for [place] and positive for Poverty of Content Judgement: Poor Diagnostics Vital Signs (24Hr): Vital Signs - 24 hr 11/20/23 20:00 11/21/23 08:12 Temperature 98.4 F 97 F Pulse Rate 75 74 Respiratory Rate 18 16 Blood Pressure 135/69 119/76 Pulse Oximetry 96 95 Oxygen Delivery Method Room Air Room Air BMI result Body Mass Index 24.1 Labs 10/16/23 16:18 10/16/23 16:18 Imaging Radiology Impressions: ITS Impressions Shoulder X-Ray 07/30/23 09:55 IMPRESSION: 1. No metallic foreign body. 2. Calcification adjacent to the humeral head likely on the basis of calcific tendinosis. Orbit X-Ray 07/30/23 11:07 IMPRESSION: 1. No unexpected radiopaque foreign bodies. 2. Clear lungs. 3. Nonobstructive bowel gas pattern. 4. Moderate to large degree of colonic stool burden. Brain MRI 07/30/23 20:40 IMPRESSION: No acute intracranial abnormality. No findings to suggest Wernicke encephalopathy. Hand X-Ray 08/26/23 09:05 IMPRESSION: No fracture seen. Medications Medications Current Medications Acetaminophen (Acetaminophen 325 Mg Tablet) 650 mg PO Q6H PRN PRN Reason: Headache/Pain (1-10) Last Admin: 11/17/23 13:51 Dose: 650 mg Al Hydroxide/Mg Hydroxide (Magnesium Hydrox/Alum Hydrox 30 Ml Oral.Susp) 30 ml PO Q6H PRN PRN Reason: Heartburn/Nausea Last Admin: 11/09/23 21:34 Dose: 30 ml Artificial Tears (Artificial Tears 15 Ml Drops) 1 drop EYE-BOTH Q4H PRN PRN Reason: Dry Eyes Last Admin: 11/11/23 20:33 Dose: 1 drop Benzocaine (Throat Lozenge, Medicated Lozenge) 1 lozenge MUCOUS MEM Q4H PRN PRN Reason: Sore Throat Brimonidine Tartrate (Brimonidine Tartrate 0.2% Oph 5 Ml Bottle) 1 drop EYE- BOTH TID [facility] Last Admin: 11/21/23 16:12 Dose: 1 drop Donepezil HCl (Donepezil Hcl 10 Mg Tablet) 10 mg PO BEDTIME [facility] Last Admin: 11/20/23 20:55 Dose: 10 mg Guaifenesin (Guaifenesin 200 Mg/10 Ml 10 Ml Liquid) 10 ml PO Q6H PRN PRN Reason: Cough Last Admin: 09/05/23 23:21 Dose: 10 ml Lidocaine (Lidocaine 4 % Patch Adh..Patch) 2 patch TRANSDERMA DAILY PRN; Protocol PRN Reason: bilateral low back pain Last Admin: 09/26/23 04:27 Dose: 2 patch Magnesium Hydroxide (Milk Of Magnesia 30 Ml Oral.Susp) 30 ml PO DAILY PRN PRN Reason: Constipation Last Admin: 08/23/23 08:41 Dose: 30 ml Memantine (Memantine Hcl 10 Mg Tablet) 10 mg PO BID [facility] Last Admin: 11/21/23 08:18 Dose: 10 mg Quetiapine Fumarate (Quetiapine Fumarate 25 Mg Tablet) 25 mg PO BID PRN PRN Reason: anxiety/agitation Last Admin: 11/20/23 22:18 Dose: 25 mg Quetiapine Fumarate (Quetiapine Fumarate 25 Mg Tablet) 12.5 mg PO BID@0830,1330 [facility] Last Admin: 11/21/23 15:36 Dose: Not Given Quetiapine Fumarate (Quetiapine Fumarate 50 Mg Tablet) 50 mg PO BEDTIME [facility] Last Admin: 11/20/23 20:56 Dose: 50 mg Quetiapine Fumarate (Quetiapine Fumarate 50 Mg Tablet) 50 mg PO DAILY@1700 [facility] Last Admin: 11/20/23 16:45 Dose: 50 mg Sertraline HCl (Sertraline Hcl 25 Mg Tablet) 25 mg PO DAILY [facility] Last Admin: 11/21/23 08:17 Dose: 25 mg Sumatriptan Succinate (Sumatriptan Succinate 50 Mg Tablet) 50 mg PO DAILY MRX1 PRN PRN Reason: Migraine Headache Last Admin: 11/19/23 13:44 Dose: 50 mg Thiamine HCl (Thiamine Hcl 100 Mg Tablet) 100 mg PO DAILY [facility] Last Admin: 11/21/23 08:17 Dose: 100 mg Trazodone HCl (Trazodone Hcl 50 Mg Tablet) 50 mg PO BEDTIME MRX1 PRN PRN Reason: Insomnia Last Admin: 11/20/23 22:18 Dose: 50 mg Allergies Allergies Allergy/AdvReac Type Severity Reaction Status Date / Time Sulfa (Sulfonamide Allergy Severe ANAPHYLAXIS Verified 08/25/23 23:13 Antibiotics) [SULFA (SULFONAMIDE ANTIBIOTICS)] mold Allergy Intermediate Shortness Verified 08/25/23 22:42 of Breath Assessment & Plan Assessment & Plan (1) Dementia: Status: Acute Code(s): F03.90 - Unspecified dementia, unspecified severity, without behavioral disturbance, psychotic disturbance, mood disturbance, and anxiety (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 Plan 1. Continue same treatment. 2. Waiting for placement. Reason for continued inpatient stay Substantial Risk for: inability to function, rapid decompensation and med/psych decompensation Time Spent With Patient Time: Total time managing care of this patient today __20__ minutes.
[2023-11-21] MEDS: QUEtiapine Fumarate 50 MG TABLET PO ×2 (17:30→20:28)
[2023-11-21 20:00] VITALS: BP 136/63; PULSE 74; RESP 18; TEMP 36.4; O2SAT 96
[2023-11-21] MEDS: traZODone HCL 50 MG TABLET PO (20:28)
[2023-11-21] MEDS: Donepezil HCl 10 MG TABLET PO (20:28)
[2023-11-22 08:17] VITALS: BP 123/69; PULSE 72; RESP 18; TEMP 36.1; O2SAT 96
[2023-11-22] MEDS: Brimonidine Tartrate 0.2% Oph 5 ML BOTTLE 1 DROP EYE-BOTH ×3 (09:04→20:07)
[2023-11-22] MEDS: Thiamine HCL 100 MG TABLET PO (09:04)
[2023-11-22] MEDS: Sertraline HCL 25 MG TABLET PO (09:05)
[2023-11-22] MEDS: Memantine HCl 10 MG TABLET PO ×2 (09:05→20:07)
[2023-11-22] MEDS: QUEtiapine Fumarate 25 MG TABLET 12.5 MG PO ×2 (09:05→13:18)
[2023-11-22] MEDS: Artificial Tears 15 ML DROPS 1 DROP EYE-BOTH (10:05)
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
[2023-11-22] MEDS: QUEtiapine Fumarate 50 MG TABLET PO ×2 (16:38→20:07)
[2023-11-22 20:00] VITALS: BP 140/70; PULSE 78; RESP 18; TEMP 36.8; O2SAT 94
[2023-11-22] MEDS: Donepezil HCl 10 MG TABLET PO (20:07)
[2023-11-22] MEDS: traZODone HCL 50 MG TABLET PO ×2 (21:00→22:10)
[2023-11-22] MEDS: QUEtiapine Fumarate 25 MG TABLET PO (21:57)
[2023-11-22] MEDS: Magnesium Hydrox/Alum Hydrox 30 ML ORAL.SUSP PO (21:57)
[2023-11-23 08:00] VITALS: BP 128/61; PULSE 65; RESP 18; TEMP 36.6; O2SAT 95
[2023-11-23] MEDS: Sertraline HCL 25 MG TABLET PO (08:36)
[2023-11-23] MEDS: Memantine HCl 10 MG TABLET PO ×2 (08:36→20:32)
[2023-11-23] MEDS: Thiamine HCL 100 MG TABLET PO (08:36)
[2023-11-23] MEDS: QUEtiapine Fumarate 25 MG TABLET 12.5 MG PO ×2 (08:37→13:07)
[2023-11-23] MEDS: Brimonidine Tartrate 0.2% Oph 5 ML BOTTLE 1 DROP EYE-BOTH ×3 (08:38→20:32)
--- NOTE | 2023-11-23 12:15 | P.PNPSI_ITS ---
Subjective Subjective Date of Service: 11/22/23 Reason For Visit: Wernicke-Korsakoff Syndrome Subjective Notes: Conditional Voluntary Interim History: Case reviewed with Nursing staff chart reviewed patient seen. The nursing staff reported no changes in mental status. On interview the patient denies new symptoms, waiting for placement Mental Status Exam Mental Status Exam Patient Appearance: Disheveled and Appropriate Patient Orientation: Person, Place and Situation Level of Consciousness: Awake and Appropriate Patient Behavior: Cooperative and Passive Mood Description: Calm and Withdrawn Affect Description: Constricted and Apprehensive Patient Cognition Impaired: Yes Ability to Follow Directions: Good Speech Pattern: Clear Hallucinations: None Delusions: Not Present Thought Content: positive for [place] and positive for Poverty of Content Judgement: Fair Judgement and Insight: Not combative or agitated discouraged over extended hospitalization pleasant and superficially cooperative Diagnostics Vital Signs (24Hr): Vital Signs - 24 hr 11/22/23 20:00 11/23/23 08:00 Temperature 98.2 F 97.9 F Pulse Rate 78 65 Respiratory Rate 18 18 Blood Pressure 140/70 H 128/61 Pulse Oximetry 94 95 Oxygen Delivery Method Room Air Room Air BMI result Body Mass Index 24.1 Labs 10/16/23 16:18 10/16/23 16:18 Imaging Radiology Impressions: ITS Impressions Shoulder X-Ray 07/30/23 09:55 IMPRESSION: 1. No metallic foreign body. 2. Calcification adjacent to the humeral head likely on the basis of calcific tendinosis. Orbit X-Ray 07/30/23 11:07 IMPRESSION: 1. No unexpected radiopaque foreign bodies. 2. Clear lungs. 3. Nonobstructive bowel gas pattern. 4. Moderate to large degree of colonic stool burden. Brain MRI 07/30/23 20:40 IMPRESSION: No acute intracranial abnormality. No findings to suggest Wernicke encephalopathy. Hand X-Ray 08/26/23 09:05 IMPRESSION: No fracture seen. Medications Medications Current Medications Acetaminophen (Acetaminophen 325 Mg Tablet) 650 mg PO Q6H PRN PRN Reason: Headache/Pain (1-10) Last Admin: 11/17/23 13:51 Dose: 650 mg Al Hydroxide/Mg Hydroxide (Magnesium Hydrox/Alum Hydrox 30 Ml Oral.Susp) 30 ml PO Q6H PRN PRN Reason: Heartburn/Nausea Last Admin: 11/22/23 21:57 Dose: 30 ml Artificial Tears (Artificial Tears 15 Ml Drops) 1 drop EYE-BOTH Q4H PRN PRN Reason: Dry Eyes Last Admin: 11/22/23 10:05 Dose: 1 drop Benzocaine (Throat Lozenge, Medicated Lozenge) 1 lozenge MUCOUS MEM Q4H PRN PRN Reason: Sore Throat Brimonidine Tartrate (Brimonidine Tartrate 0.2% Oph 5 Ml Bottle) 1 drop EYE- BOTH TID [facility] Last Admin: 11/23/23 08:38 Dose: 1 drop Donepezil HCl (Donepezil Hcl 10 Mg Tablet) 10 mg PO BEDTIME [facility] Last Admin: 11/22/23 20:07 Dose: 10 mg Guaifenesin (Guaifenesin 200 Mg/10 Ml 10 Ml Liquid) 10 ml PO Q6H PRN PRN Reason: Cough Last Admin: 09/05/23 23:21 Dose: 10 ml Lidocaine (Lidocaine 4 % Patch Adh..Patch) 2 patch TRANSDERMA DAILY PRN; Protocol PRN Reason: bilateral low back pain Last Admin: 09/26/23 04:27 Dose: 2 patch Magnesium Hydroxide (Milk Of Magnesia 30 Ml Oral.Susp) 30 ml PO DAILY PRN PRN Reason: Constipation Last Admin: 08/23/23 08:41 Dose: 30 ml Memantine (Memantine Hcl 10 Mg Tablet) 10 mg PO BID [facility] Last Admin: 11/23/23 08:36 Dose: 10 mg Quetiapine Fumarate (Quetiapine Fumarate 25 Mg Tablet) 25 mg PO BID PRN PRN Reason: anxiety/agitation Last Admin: 11/22/23 21:57 Dose: 25 mg Quetiapine Fumarate (Quetiapine Fumarate 25 Mg Tablet) 12.5 mg PO BID@0830,1330 [facility] Last Admin: 11/23/23 08:37 Dose: 12.5 mg Quetiapine Fumarate (Quetiapine Fumarate 50 Mg Tablet) 50 mg PO BEDTIME [facility] Last Admin: 11/22/23 20:07 Dose: 50 mg Quetiapine Fumarate (Quetiapine Fumarate 50 Mg Tablet) 50 mg PO DAILY@1700 [facility] Last Admin: 11/22/23 16:38 Dose: 50 mg Sertraline HCl (Sertraline Hcl 50 Mg Tablet) 50 mg PO DAILY [facility] Sumatriptan Succinate (Sumatriptan Succinate 50 Mg Tablet) 50 mg PO DAILY MRX1 PRN PRN Reason: Migraine Headache Last Admin: 11/19/23 13:44 Dose: 50 mg Thiamine HCl (Thiamine Hcl 100 Mg Tablet) 100 mg PO DAILY [facility] Last Admin: 11/23/23 08:36 Dose: 100 mg Trazodone HCl (Trazodone Hcl 50 Mg Tablet) 50 mg PO BEDTIME MRX1 PRN PRN Reason: Insomnia Last Admin: 11/22/23 22:10 Dose: 50 mg Allergies Allergies Allergy/AdvReac Type Severity Reaction Status Date / Time Sulfa (Sulfonamide Allergy Severe ANAPHYLAXIS Verified 08/25/23 23:13 Antibiotics) [SULFA (SULFONAMIDE ANTIBIOTICS)] mold Allergy Intermediate Shortness Verified 08/25/23 22:42 of Breath Assessment & Plan Assessment & Plan (1) Dementia: Status: Acute Code(s): F03.90 - Unspecified dementia, unspecified severity, without behavioral disturbance, psychotic disturbance, mood disturbance, and anxiety (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 Plan 1. Continue same treatment. 2. Waiting for placement. 11/22/2023 Continue plan of care continue discharge planning please note prior note cancel wrong chart Reason for continued inpatient stay Substantial Risk for: inability to function and rapid decompensation Time Spent With Patient Time: Total time managing care of this patient today ____ minutes.
--- NOTE | 2023-11-23 12:19 | P.PNPSI_ITS ---
Subjective Subjective Date of Service: 11/22/23 Reason For Visit: Wernicke-Korsakoff Syndrome Diagnostics Vital Signs (24Hr): Vital Signs - 24 hr 11/22/23 20:00 11/23/23 08:00 Temperature 98.2 F 97.9 F Pulse Rate 78 65 Respiratory Rate 18 18 Blood Pressure 140/70 H 128/61 Pulse Oximetry 94 95 Oxygen Delivery Method Room Air Room Air BMI result Body Mass Index 24.1 Labs 10/16/23 16:18 10/16/23 16:18 Imaging Radiology Impressions: ITS Impressions Shoulder X-Ray 07/30/23 09:55 IMPRESSION: 1. No metallic foreign body. 2. Calcification adjacent to the humeral head likely on the basis of calcific tendinosis. Orbit X-Ray 07/30/23 11:07 IMPRESSION: 1. No unexpected radiopaque foreign bodies. 2. Clear lungs. 3. Nonobstructive bowel gas pattern. 4. Moderate to large degree of colonic stool burden. Brain MRI 07/30/23 20:40 IMPRESSION: No acute intracranial abnormality. No findings to suggest Wernicke encephalopathy. Hand X-Ray 08/26/23 09:05 IMPRESSION: No fracture seen. Medications Medications Current Medications Acetaminophen (Acetaminophen 325 Mg Tablet) 650 mg PO Q6H PRN PRN Reason: Headache/Pain (1-10) Last Admin: 11/17/23 13:51 Dose: 650 mg Al Hydroxide/Mg Hydroxide (Magnesium Hydrox/Alum Hydrox 30 Ml Oral.Susp) 30 ml PO Q6H PRN PRN Reason: Heartburn/Nausea Last Admin: 11/22/23 21:57 Dose: 30 ml Artificial Tears (Artificial Tears 15 Ml Drops) 1 drop EYE-BOTH Q4H PRN PRN Reason: Dry Eyes Last Admin: 11/22/23 10:05 Dose: 1 drop Benzocaine (Throat Lozenge, Medicated Lozenge) 1 lozenge MUCOUS MEM Q4H PRN PRN Reason: Sore Throat Brimonidine Tartrate (Brimonidine Tartrate 0.2% Oph 5 Ml Bottle) 1 drop EYE- BOTH TID [facility] Last Admin: 11/23/23 08:38 Dose: 1 drop Donepezil HCl (Donepezil Hcl 10 Mg Tablet) 10 mg PO BEDTIME [facility] Last Admin: 11/22/23 20:07 Dose: 10 mg Guaifenesin (Guaifenesin 200 Mg/10 Ml 10 Ml Liquid) 10 ml PO Q6H PRN PRN Reason: Cough Last Admin: 09/05/23 23:21 Dose: 10 ml Lidocaine (Lidocaine 4 % Patch Adh..Patch) 2 patch TRANSDERMA DAILY PRN; Protocol PRN Reason: bilateral low back pain Last Admin: 09/26/23 04:27 Dose: 2 patch Magnesium Hydroxide (Milk Of Magnesia 30 Ml Oral.Susp) 30 ml PO DAILY PRN PRN Reason: Constipation Last Admin: 08/23/23 08:41 Dose: 30 ml Memantine (Memantine Hcl 10 Mg Tablet) 10 mg PO BID [facility] Last Admin: 11/23/23 08:36 Dose: 10 mg Quetiapine Fumarate (Quetiapine Fumarate 25 Mg Tablet) 25 mg PO BID PRN PRN Reason: anxiety/agitation Last Admin: 11/22/23 21:57 Dose: 25 mg Quetiapine Fumarate (Quetiapine Fumarate 25 Mg Tablet) 12.5 mg PO BID@0830,1330 [facility] Last Admin: 11/23/23 08:37 Dose: 12.5 mg Quetiapine Fumarate (Quetiapine Fumarate 50 Mg Tablet) 50 mg PO BEDTIME [facility] Last Admin: 11/22/23 20:07 Dose: 50 mg Quetiapine Fumarate (Quetiapine Fumarate 50 Mg Tablet) 50 mg PO DAILY@1700 [facility] Last Admin: 11/22/23 16:38 Dose: 50 mg Sertraline HCl (Sertraline Hcl 50 Mg Tablet) 50 mg PO DAILY [facility] Sumatriptan Succinate (Sumatriptan Succinate 50 Mg Tablet) 50 mg PO DAILY MRX1 PRN PRN Reason: Migraine Headache Last Admin: 11/19/23 13:44 Dose: 50 mg Thiamine HCl (Thiamine Hcl 100 Mg Tablet) 100 mg PO DAILY [facility] Last Admin: 11/23/23 08:36 Dose: 100 mg Trazodone HCl (Trazodone Hcl 50 Mg Tablet) 50 mg PO BEDTIME MRX1 PRN PRN Reason: Insomnia Last Admin: 11/22/23 22:10 Dose: 50 mg Allergies Allergies Allergy/AdvReac Type Severity Reaction Status Date / Time Sulfa (Sulfonamide Allergy Severe ANAPHYLAXIS Verified 08/25/23 23:13 Antibiotics) [SULFA (SULFONAMIDE ANTIBIOTICS)] mold Allergy Intermediate Shortness Verified 08/25/23 22:42 of Breath Assessment & Plan Assessment & Plan (1) Dementia: Status: Acute Code(s): F03.90 - Unspecified dementia, unspecified severity, without behavioral disturbance, psychotic disturbance, mood disturbance, and anxiety (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 Plan 1. Continue same treatment. 2. Waiting for placement. 11/22/2023 Continue plan of care continue discharge planning please note prior note cancel wrong chart Reason for continued inpatient stay Substantial Risk for: inability to function and rapid decompensation Time Spent With Patient Time: Total time managing care of this patient today ____ minutes.
[2023-11-23] MEDS: QUEtiapine Fumarate 50 MG TABLET PO ×2 (16:18→20:32)
[2023-11-23 20:00] VITALS: BP 123/63; PULSE 78; RESP 18; TEMP 36.7; O2SAT 95
[2023-11-23] MEDS: traZODone HCL 50 MG TABLET PO (20:32)
[2023-11-23] MEDS: Donepezil HCl 10 MG TABLET PO (20:32)
--- NOTE | 2023-11-23 22:49 | P.PNPSI_ITS ---
Subjective Subjective Date of Service: 11/23/23 Reason For Visit: Wernicke-Korsakoff Syndrome Subjective Notes: Conditional Voluntary Interim History: Patient's case reviewed treatment planning chart reviewed patient stable cooperative Mental Status Exam Mental Status Exam Patient Appearance: Disheveled and Appropriate Patient Orientation: Person, Place and Situation Level of Consciousness: Awake and Appropriate Patient Behavior: Cooperative and Passive Mood Description: Calm and Withdrawn Affect Description: Constricted and Apprehensive Patient Cognition Impaired: Yes Ability to Follow Directions: Good Speech Pattern: Clear Hallucinations: None Delusions: Not Present Thought Content: positive for [place] and positive for Poverty of Content Judgement: Fair Judgement and Insight: Not combative or agitated discouraged over extended hospitalization pleasant and superficially cooperative Diagnostics Vital Signs (24Hr): Vital Signs - 24 hr 11/23/23 08:00 11/23/23 20:00 Temperature 97.9 F 98.1 F Pulse Rate 65 78 Respiratory Rate 18 18 Blood Pressure 128/61 123/63 Pulse Oximetry 95 95 Oxygen Delivery Method Room Air Room Air BMI result Body Mass Index 24.1 Labs 10/16/23 16:18 10/16/23 16:18 Imaging Radiology Impressions: ITS Impressions Shoulder X-Ray 07/30/23 09:55 IMPRESSION: 1. No metallic foreign body. 2. Calcification adjacent to the humeral head likely on the basis of calcific tendinosis. Orbit X-Ray 07/30/23 11:07 IMPRESSION: 1. No unexpected radiopaque foreign bodies. 2. Clear lungs. 3. Nonobstructive bowel gas pattern. 4. Moderate to large degree of colonic stool burden. Brain MRI 07/30/23 20:40 IMPRESSION: No acute intracranial abnormality. No findings to suggest Wernicke encephalopathy. Hand X-Ray 08/26/23 09:05 IMPRESSION: No fracture seen. Medications Medications Current Medications Acetaminophen (Acetaminophen 325 Mg Tablet) 650 mg PO Q6H PRN PRN Reason: Headache/Pain (1-10) Last Admin: 11/17/23 13:51 Dose: 650 mg Al Hydroxide/Mg Hydroxide (Magnesium Hydrox/Alum Hydrox 30 Ml Oral.Susp) 30 ml PO Q6H PRN PRN Reason: Heartburn/Nausea Last Admin: 11/22/23 21:57 Dose: 30 ml Artificial Tears (Artificial Tears 15 Ml Drops) 1 drop EYE-BOTH Q4H PRN PRN Reason: Dry Eyes Last Admin: 11/22/23 10:05 Dose: 1 drop Benzocaine (Throat Lozenge, Medicated Lozenge) 1 lozenge MUCOUS MEM Q4H PRN PRN Reason: Sore Throat Brimonidine Tartrate (Brimonidine Tartrate 0.2% Oph 5 Ml Bottle) 1 drop EYE- BOTH TID [facility] Last Admin: 11/23/23 20:32 Dose: 1 drop Donepezil HCl (Donepezil Hcl 10 Mg Tablet) 10 mg PO BEDTIME [facility] Last Admin: 11/23/23 20:32 Dose: 10 mg Guaifenesin (Guaifenesin 200 Mg/10 Ml 10 Ml Liquid) 10 ml PO Q6H PRN PRN Reason: Cough Last Admin: 09/05/23 23:21 Dose: 10 ml Lidocaine (Lidocaine 4 % Patch Adh..Patch) 2 patch TRANSDERMA DAILY PRN; Protocol PRN Reason: bilateral low back pain Last Admin: 09/26/23 04:27 Dose: 2 patch Magnesium Hydroxide (Milk Of Magnesia 30 Ml Oral.Susp) 30 ml PO DAILY PRN PRN Reason: Constipation Last Admin: 08/23/23 08:41 Dose: 30 ml Memantine (Memantine Hcl 10 Mg Tablet) 10 mg PO BID [facility] Last Admin: 11/23/23 20:32 Dose: 10 mg Quetiapine Fumarate (Quetiapine Fumarate 25 Mg Tablet) 25 mg PO BID PRN PRN Reason: anxiety/agitation Last Admin: 11/22/23 21:57 Dose: 25 mg Quetiapine Fumarate (Quetiapine Fumarate 25 Mg Tablet) 12.5 mg PO BID@0830,1330 [facility] Last Admin: 11/23/23 13:07 Dose: 12.5 mg Quetiapine Fumarate (Quetiapine Fumarate 50 Mg Tablet) 50 mg PO BEDTIME [facility] Last Admin: 11/23/23 20:32 Dose: 50 mg Quetiapine Fumarate (Quetiapine Fumarate 50 Mg Tablet) 50 mg PO DAILY@1700 [facility] Last Admin: 11/23/23 16:18 Dose: 50 mg Sertraline HCl (Sertraline Hcl 50 Mg Tablet) 50 mg PO DAILY [facility] Sumatriptan Succinate (Sumatriptan Succinate 50 Mg Tablet) 50 mg PO DAILY MRX1 PRN PRN Reason: Migraine Headache Last Admin: 11/19/23 13:44 Dose: 50 mg Thiamine HCl (Thiamine Hcl 100 Mg Tablet) 100 mg PO DAILY [facility] Last Admin: 11/23/23 08:36 Dose: 100 mg Trazodone HCl (Trazodone Hcl 50 Mg Tablet) 50 mg PO BEDTIME MRX1 PRN PRN Reason: Insomnia Last Admin: 11/23/23 20:32 Dose: 50 mg Allergies Allergies Allergy/AdvReac Type Severity Reaction Status Date / Time Sulfa (Sulfonamide Allergy Severe ANAPHYLAXIS Verified 08/25/23 23:13 Antibiotics) [SULFA (SULFONAMIDE ANTIBIOTICS)] mold Allergy Intermediate Shortness Verified 08/25/23 22:42 of Breath Assessment & Plan Assessment & Plan (1) Dementia: Status: Acute Code(s): F03.90 - Unspecified dementia, unspecified severity, without behavioral disturbance, psychotic disturbance, mood disturbance, and anxiety (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 Plan 1. Continue same treatment. 2. Waiting for placement. 11/22/2023 Continue plan of care continue discharge planning please note prior note cancel wrong chart 11/23/2023 Continue plan of care Reason for continued inpatient stay Substantial Risk for: inability to function, rapid decompensation and med/psych decompensation Time Spent With Patient Time: Total time managing care of this patient today ____ minutes.
[2023-11-24 08:32] VITALS: BP 127/60; PULSE 87; RESP 15; TEMP 36.8; O2SAT 95
[2023-11-24] MEDS: QUEtiapine Fumarate 25 MG TABLET 12.5 MG PO ×2 (08:34→14:29)
[2023-11-24] MEDS: Thiamine HCL 100 MG TABLET PO (08:34)
[2023-11-24] MEDS: Sertraline HCL 50 MG TABLET PO (08:34)
[2023-11-24] MEDS: Memantine HCl 10 MG TABLET PO ×2 (08:35→20:29)
[2023-11-24] MEDS: Brimonidine Tartrate 0.2% Oph 5 ML BOTTLE 1 DROP EYE-BOTH ×3 (08:35→20:28)
--- NOTE | 2023-11-24 12:53 | P.PNPSI_ITS ---
Subjective Subjective Date of Service: 11/24/23 Reason For Visit: Wernicke-Korsakoff Syndrome Subjective Notes: Conditional Voluntary Interim History: The nursing staff reported no changes in his mental status compliant with treatment. On interview the patient denies new symptoms asking for discharge. Mental Status Exam Mental Status Exam Patient Appearance: Well Grooomed and Appropriate Patient Orientation: Person and Situation Level of Consciousness: Awake and Appropriate Patient Behavior: Guarded and Passive Mood Description: Withdrawn Affect Description: Constricted Patient Cognition Impaired: Yes Ability to Follow Directions: Good Speech Pattern: Clear Hallucinations: None Delusions: Not Present Thought Process: Distracted and Slowed Thinking Thought Content: positive for [place] and positive for Poverty of Content Judgement: Fair Diagnostics Vital Signs (24Hr): Vital Signs - 24 hr 11/23/23 20:00 11/24/23 08:32 Temperature 98.1 F 98.2 F Pulse Rate 78 87 Respiratory Rate 18 15 Blood Pressure 123/63 127/60 Pulse Oximetry 95 95 Oxygen Delivery Method Room Air Room Air BMI result Body Mass Index 24.1 Labs 10/16/23 16:18 10/16/23 16:18 Imaging Radiology Impressions: ITS Impressions Shoulder X-Ray 07/30/23 09:55 IMPRESSION: 1. No metallic foreign body. 2. Calcification adjacent to the humeral head likely on the basis of calcific tendinosis. Orbit X-Ray 07/30/23 11:07 IMPRESSION: 1. No unexpected radiopaque foreign bodies. 2. Clear lungs. 3. Nonobstructive bowel gas pattern. 4. Moderate to large degree of colonic stool burden. Brain MRI 07/30/23 20:40 IMPRESSION: No acute intracranial abnormality. No findings to suggest Wernicke encephalopathy. Hand X-Ray 08/26/23 09:05 IMPRESSION: No fracture seen. Medications Medications Current Medications Acetaminophen (Acetaminophen 325 Mg Tablet) 650 mg PO Q6H PRN PRN Reason: Headache/Pain (1-10) Last Admin: 11/17/23 13:51 Dose: 650 mg Al Hydroxide/Mg Hydroxide (Magnesium Hydrox/Alum Hydrox 30 Ml Oral.Susp) 30 ml PO Q6H PRN PRN Reason: Heartburn/Nausea Last Admin: 11/22/23 21:57 Dose: 30 ml Artificial Tears (Artificial Tears 15 Ml Drops) 1 drop EYE-BOTH Q4H PRN PRN Reason: Dry Eyes Last Admin: 11/22/23 10:05 Dose: 1 drop Benzocaine (Throat Lozenge, Medicated Lozenge) 1 lozenge MUCOUS MEM Q4H PRN PRN Reason: Sore Throat Brimonidine Tartrate (Brimonidine Tartrate 0.2% Oph 5 Ml Bottle) 1 drop EYE- BOTH TID [facility] Last Admin: 11/24/23 08:35 Dose: 1 drop Donepezil HCl (Donepezil Hcl 10 Mg Tablet) 10 mg PO BEDTIME [facility] Last Admin: 11/23/23 20:32 Dose: 10 mg Guaifenesin (Guaifenesin 200 Mg/10 Ml 10 Ml Liquid) 10 ml PO Q6H PRN PRN Reason: Cough Last Admin: 09/05/23 23:21 Dose: 10 ml Lidocaine (Lidocaine 4 % Patch Adh..Patch) 2 patch TRANSDERMA DAILY PRN; Protocol PRN Reason: bilateral low back pain Last Admin: 09/26/23 04:27 Dose: 2 patch Magnesium Hydroxide (Milk Of Magnesia 30 Ml Oral.Susp) 30 ml PO DAILY PRN PRN Reason: Constipation Last Admin: 08/23/23 08:41 Dose: 30 ml Memantine (Memantine Hcl 10 Mg Tablet) 10 mg PO BID [facility] Last Admin: 11/24/23 08:35 Dose: 10 mg Quetiapine Fumarate (Quetiapine Fumarate 25 Mg Tablet) 25 mg PO BID PRN PRN Reason: anxiety/agitation Last Admin: 11/22/23 21:57 Dose: 25 mg Quetiapine Fumarate (Quetiapine Fumarate 25 Mg Tablet) 12.5 mg PO BID@0830,1330 [facility] Last Admin: 11/24/23 08:34 Dose: 12.5 mg Quetiapine Fumarate (Quetiapine Fumarate 50 Mg Tablet) 50 mg PO BEDTIME [facility] Last Admin: 11/23/23 20:32 Dose: 50 mg Quetiapine Fumarate (Quetiapine Fumarate 50 Mg Tablet) 50 mg PO DAILY@1700 [facility] Last Admin: 11/23/23 16:18 Dose: 50 mg Sertraline HCl (Sertraline Hcl 50 Mg Tablet) 50 mg PO DAILY [facility] Last Admin: 11/24/23 08:34 Dose: 50 mg Sumatriptan Succinate (Sumatriptan Succinate 50 Mg Tablet) 50 mg PO DAILY MRX1 PRN PRN Reason: Migraine Headache Last Admin: 11/19/23 13:44 Dose: 50 mg Thiamine HCl (Thiamine Hcl 100 Mg Tablet) 100 mg PO DAILY [facility] Last Admin: 11/24/23 08:34 Dose: 100 mg Trazodone HCl (Trazodone Hcl 50 Mg Tablet) 50 mg PO BEDTIME MRX1 PRN PRN Reason: Insomnia Last Admin: 11/23/23 20:32 Dose: 50 mg Allergies Allergies Allergy/AdvReac Type Severity Reaction Status Date / Time Sulfa (Sulfonamide Allergy Severe ANAPHYLAXIS Verified 08/25/23 23:13 Antibiotics) [SULFA (SULFONAMIDE ANTIBIOTICS)] mold Allergy Intermediate Shortness Verified 08/25/23 22:42 of Breath Assessment & Plan Assessment & Plan (1) Dementia: Status: Acute Code(s): F03.90 - Unspecified dementia, unspecified severity, without behavioral disturbance, psychotic disturbance, mood disturbance, and anxiety (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 Plan 1. Continue same treatment. 2. Waiting for placement. Reason for continued inpatient stay Substantial Risk for: inability to function, rapid decompensation and med/psych decompensation Time Spent With Patient Time: Total time managing care of this patient today __20__ minutes.
[2023-11-24 20:00] VITALS: BP 147/66; PULSE 80; RESP 16; TEMP 36.1; O2SAT 94
[2023-11-24] MEDS: Donepezil HCl 10 MG TABLET PO (20:28)
[2023-11-24] MEDS: traZODone HCL 50 MG TABLET PO (20:28)
[2023-11-24] MEDS: QUEtiapine Fumarate 50 MG TABLET PO (20:28)
[2023-11-25 08:00] VITALS: BP 99/55; PULSE 93; RESP 18; TEMP 35.9; O2SAT 96
[2023-11-25] MEDS: Brimonidine Tartrate 0.2% Oph 5 ML BOTTLE 1 DROP EYE-BOTH ×3 (08:52→20:45)
[2023-11-25] MEDS: Memantine HCl 10 MG TABLET PO ×2 (08:52→20:46)
[2023-11-25] MEDS: Thiamine HCL 100 MG TABLET PO (08:52)
[2023-11-25] MEDS: QUEtiapine Fumarate 25 MG TABLET 12.5 MG PO ×2 (08:52→14:31)
[2023-11-25] MEDS: Sertraline HCL 50 MG TABLET PO (08:52)
--- NOTE | 2023-11-25 17:00 | HO.PSYCHPN ---
Subjective Subjective Date of Service: 11/25/23 Reason For Visit: Wernicke-Korsakoff Syndrome Subjective Notes: Conditional Voluntary Interim History: The nursing staff reported compliance with treatment no changes in mental status. The social science teacher reported he was already accepted to [facility] but the patient does not 1 to go over there. Waiting for information of healthcare proxy. On interview the patient denies new symptoms waiting for placement. Mental Status Exam Mental Status Exam Patient Appearance: Well Grooomed and Appropriate Patient Orientation: Person and Situation Level of Consciousness: Awake and Appropriate Patient Behavior: Guarded and Passive Mood Description: Withdrawn Affect Description: Constricted Patient Cognition Impaired: Yes Ability to Follow Directions: Good Speech Pattern: Clear Hallucinations: None Delusions: Not Present Thought Process: Distracted and Slowed Thinking Thought Content: positive for [place] and positive for Poverty of Content Judgement: Fair Diagnostics Vital Signs (24Hr): Vital Signs - 24 hr 11/24/23 20:00 11/25/23 08:00 Temperature 96.9 F 96.6 F L Pulse Rate 80 93 Respiratory Rate 16 18 Blood Pressure 147/66 H 99/55 L Pulse Oximetry 94 96 Oxygen Delivery Method Room Air Room Air BMI result Body Mass Index 24.1 Labs 10/16/23 16:18 10/16/23 16:18 Imaging Radiology Impressions: ITS Impressions Shoulder X-Ray 07/30/23 09:55 IMPRESSION: 1. No metallic foreign body. 2. Calcification adjacent to the humeral head likely on the basis of calcific tendinosis. Orbit X-Ray 07/30/23 11:07 IMPRESSION: 1. No unexpected radiopaque foreign bodies. 2. Clear lungs. 3. Nonobstructive bowel gas pattern. 4. Moderate to large degree of colonic stool burden. Brain MRI 07/30/23 20:40 IMPRESSION: No acute intracranial abnormality. No findings to suggest Wernicke encephalopathy. Hand X-Ray 08/26/23 09:05 IMPRESSION: No fracture seen. Medications Medications Current Medications Acetaminophen (Acetaminophen 325 Mg Tablet) 650 mg PO Q6H PRN PRN Reason: Headache/Pain (1-10) Last Admin: 11/17/23 13:51 Dose: 650 mg Al Hydroxide/Mg Hydroxide (Magnesium Hydrox/Alum Hydrox 30 Ml Oral.Susp) 30 ml PO Q6H PRN PRN Reason: Heartburn/Nausea Last Admin: 11/22/23 21:57 Dose: 30 ml Artificial Tears (Artificial Tears 15 Ml Drops) 1 drop EYE-BOTH Q4H PRN PRN Reason: Dry Eyes Last Admin: 11/22/23 10:05 Dose: 1 drop Benzocaine (Throat Lozenge, Medicated Lozenge) 1 lozenge MUCOUS MEM Q4H PRN PRN Reason: Sore Throat Brimonidine Tartrate (Brimonidine Tartrate 0.2% Oph 5 Ml Bottle) 1 drop EYE-BOTH TID [facility] Last Admin: 11/25/23 14:31 Dose: 1 drop Donepezil HCl (Donepezil Hcl 10 Mg Tablet) 10 mg PO BEDTIME [facility] Last Admin: 11/24/23 20:28 Dose: 10 mg Guaifenesin (Guaifenesin 200 Mg/10 Ml 10 Ml Liquid) 10 ml PO Q6H PRN PRN Reason: Cough Last Admin: 09/05/23 23:21 Dose: 10 ml Lidocaine (Lidocaine 4 % Patch Adh..Patch) 2 patch TRANSDERMA DAILY PRN; Protocol PRN Reason: bilateral low back pain Last Admin: 09/26/23 04:27 Dose: 2 patch Magnesium Hydroxide (Milk Of Magnesia 30 Ml Oral.Susp) 30 ml PO DAILY PRN PRN Reason: Constipation Last Admin: 08/23/23 08:41 Dose: 30 ml Memantine (Memantine Hcl 10 Mg Tablet) 10 mg PO BID [facility] Last Admin: 11/25/23 08:52 Dose: 10 mg Quetiapine Fumarate (Quetiapine Fumarate 25 Mg Tablet) 25 mg PO BID PRN PRN Reason: anxiety/agitation Last Admin: 11/22/23 21:57 Dose: 25 mg Quetiapine Fumarate (Quetiapine Fumarate 25 Mg Tablet) 12.5 mg PO BID@0830,1330 [facility] Last Admin: 11/25/23 14:31 Dose: 12.5 mg Quetiapine Fumarate (Quetiapine Fumarate 50 Mg Tablet) 50 mg PO BEDTIME [facility] Last Admin: 11/24/23 20:28 Dose: 50 mg Quetiapine Fumarate (Quetiapine Fumarate 50 Mg Tablet) 50 mg PO DAILY@1700 [facility] Last Admin: 11/24/23 18:51 Dose: Not Given Sertraline HCl (Sertraline Hcl 50 Mg Tablet) 50 mg PO DAILY [facility] Last Admin: 10/01/24 08:52 Dose: 50 mg Sumatriptan Succinate (Sumatriptan Succinate 50 Mg Tablet) 50 mg PO DAILY MRX1 PRN PRN Reason: Migraine Headache Last Admin: 11/19/23 13:44 Dose: 50 mg Thiamine HCl (Thiamine Hcl 100 Mg Tablet) 100 mg PO DAILY [facility] Last Admin: 11/25/23 08:52 Dose: 100 mg Trazodone HCl (Trazodone Hcl 50 Mg Tablet) 50 mg PO BEDTIME MRX1 PRN PRN Reason: Insomnia Last Admin: 11/24/23 20:28 Dose: 50 mg Allergies Allergies Allergy/AdvReac Type Severity Reaction Status Date / Time Sulfa (Sulfonamide Allergy Severe ANAPHYLAXIS Verified 08/25/23 23:13 Antibiotics) [SULFA (SULFONAMIDE ANTIBIOTICS)] mold Allergy Intermediate Shortness Verified 08/25/23 22:42 of Breath Assessment & Plan Assessment & Plan (1) Dementia: Status: Acute Code(s): F03.90 - Unspecified dementia, unspecified severity, without behavioral disturbance, psychotic disturbance, mood disturbance, and anxiety (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 Plan 1. Continue same treatment. 2. Waiting for placement. Reason for continued inpatient stay Substantial Risk for: inability to function, rapid decompensation and med/psych decompensation Time Spent With Patient Time: Total time managing care of this patient today __20__ minutes.
[2023-11-25] MEDS: QUEtiapine Fumarate 50 MG TABLET PO ×2 (17:08→20:46)
[2023-11-25 20:00] VITALS: BP 137/63; PULSE 67; RESP 18; TEMP 36.1; O2SAT 95
[2023-11-25] MEDS: Donepezil HCl 10 MG TABLET PO (20:46)
[2023-11-25] MEDS: traZODone HCL 50 MG TABLET PO (20:46)
[2023-11-25] MEDS: Magnesium Hydrox/Alum Hydrox 30 ML ORAL.SUSP PO (21:13)
[2023-11-26] MEDS: QUEtiapine Fumarate 25 MG TABLET PO ×2 (03:36→22:11)
[2023-11-26 08:08] VITALS: BP 122/68; PULSE 75; RESP 16; TEMP 36.9; O2SAT 95
[2023-11-26] MEDS: Sertraline HCL 50 MG TABLET PO (08:43)
[2023-11-26] MEDS: QUEtiapine Fumarate 25 MG TABLET 12.5 MG PO ×2 (08:43→13:10)
[2023-11-26] MEDS: Memantine HCl 10 MG TABLET PO ×2 (08:43→20:08)
[2023-11-26] MEDS: Brimonidine Tartrate 0.2% Oph 5 ML BOTTLE 1 DROP EYE-BOTH ×3 (08:45→20:08)
[2023-11-26] MEDS: Thiamine HCL 100 MG TABLET PO (08:45)
--- NOTE | 2023-11-26 16:07 | HO.PSYCHPN ---
Subjective Subjective Date of Service: 11/26/23 Reason For Visit: Wernicke-Korsakoff Syndrome Subjective Notes: Conditional Voluntary Interim History: The nursing staff reported no changes in mental status. On interview the patient denies new symptoms, waiting for placement. Mental Status Exam Mental Status Exam Patient Appearance: Appropriate Patient Orientation: Person and Situation Level of Consciousness: Awake and Appropriate Patient Behavior: Guarded and Passive Mood Description: Withdrawn Affect Description: Constricted Patient Cognition Impaired: Yes Ability to Follow Directions: Good Speech Pattern: Clear Hallucinations: None Delusions: Not Present Thought Process: Distracted and Slowed Thinking Thought Content: positive for [place] and positive for Poverty of Content Judgement: Fair Diagnostics Vital Signs (24Hr): Vital Signs - 24 hr 11/25/23 20:00 11/26/23 08:08 Temperature 97 F 98.4 F Pulse Rate 67 75 Respiratory Rate 18 16 Blood Pressure 137/63 122/68 Pulse Oximetry 95 95 Oxygen Delivery Method Room Air Room Air BMI result Body Mass Index 24.1 Labs 10/16/23 16:18 10/16/23 16:18 Imaging Radiology Impressions: ITS Impressions Shoulder X-Ray 07/30/23 09:55 IMPRESSION: 1. No metallic foreign body. 2. Calcification adjacent to the humeral head likely on the basis of calcific tendinosis. Orbit X-Ray 07/30/23 11:07 IMPRESSION: 1. No unexpected radiopaque foreign bodies. 2. Clear lungs. 3. Nonobstructive bowel gas pattern. 4. Moderate to large degree of colonic stool burden. Brain MRI 07/30/23 20:40 IMPRESSION: No acute intracranial abnormality. No findings to suggest Wernicke encephalopathy. Hand X-Ray 08/26/23 09:05 IMPRESSION: No fracture seen. Medications Medications Current Medications Acetaminophen (Acetaminophen 325 Mg Tablet) 650 mg PO Q6H PRN PRN Reason: Headache/Pain (1-10) Last Admin: 11/17/23 13:51 Dose: 650 mg Al Hydroxide/Mg Hydroxide (Magnesium Hydrox/Alum Hydrox 30 Ml Oral.Susp) 30 ml PO Q6H PRN PRN Reason: Heartburn/Nausea Last Admin: 11/25/23 21:13 Dose: 30 ml Artificial Tears (Artificial Tears 15 Ml Drops) 1 drop EYE-BOTH Q4H PRN PRN Reason: Dry Eyes Last Admin: 11/22/23 10:05 Dose: 1 drop Benzocaine (Throat Lozenge, Medicated Lozenge) 1 lozenge MUCOUS MEM Q4H PRN PRN Reason: Sore Throat Brimonidine Tartrate (Brimonidine Tartrate 0.2% Oph 5 Ml Bottle) 1 drop EYE-BOTH TID [facility] Last Admin: 11/26/23 14:50 Dose: 1 drop Donepezil HCl (Donepezil Hcl 10 Mg Tablet) 10 mg PO BEDTIME [facility] Last Admin: 11/25/23 20:46 Dose: 10 mg Guaifenesin (Guaifenesin 200 Mg/10 Ml 10 Ml Liquid) 10 ml PO Q6H PRN PRN Reason: Cough Last Admin: 09/05/23 23:21 Dose: 10 ml Lidocaine (Lidocaine 4 % Patch Adh..Patch) 2 patch TRANSDERMA DAILY PRN; Protocol PRN Reason: bilateral low back pain Last Admin: 09/26/23 04:27 Dose: 2 patch Magnesium Hydroxide (Milk Of Magnesia 30 Ml Oral.Susp) 30 ml PO DAILY PRN PRN Reason: Constipation Last Admin: 08/23/23 08:41 Dose: 30 ml Memantine (Memantine Hcl 10 Mg Tablet) 10 mg PO BID [facility] Last Admin: 11/26/23 08:43 Dose: 10 mg Quetiapine Fumarate (Quetiapine Fumarate 25 Mg Tablet) 25 mg PO BID PRN PRN Reason: anxiety/agitation Last Admin: 11/26/23 03:36 Dose: 25 mg Quetiapine Fumarate (Quetiapine Fumarate 25 Mg Tablet) 12.5 mg PO BID@0830,1330 [facility] Last Admin: 11/26/23 13:10 Dose: 12.5 mg Quetiapine Fumarate (Quetiapine Fumarate 50 Mg Tablet) 50 mg PO BEDTIME [facility] Last Admin: 11/25/23 20:46 Dose: 50 mg Quetiapine Fumarate (Quetiapine Fumarate 50 Mg Tablet) 50 mg PO DAILY@1700 [facility] Last Admin: 11/25/23 17:08 Dose: 50 mg Sertraline HCl (Sertraline Hcl 50 Mg Tablet) 50 mg PO DAILY [facility] Last Admin: 11/26/23 08:43 Dose: 50 mg Sumatriptan Succinate (Sumatriptan Succinate 50 Mg Tablet) 50 mg PO DAILY MRX1 PRN PRN Reason: Migraine Headache Last Admin: 11/19/23 13:44 Dose: 50 mg Thiamine HCl (Thiamine Hcl 100 Mg Tablet) 100 mg PO DAILY [facility] Last Admin: 11/26/23 08:45 Dose: 100 mg Trazodone HCl (Trazodone Hcl 50 Mg Tablet) 50 mg PO BEDTIME MRX1 PRN PRN Reason: Insomnia Last Admin: 11/25/23 20:46 Dose: 50 mg Allergies Allergies Allergy/AdvReac Type Severity Reaction Status Date / Time Sulfa (Sulfonamide Allergy Severe ANAPHYLAXIS Verified 08/25/23 23:13 Antibiotics) [SULFA (SULFONAMIDE ANTIBIOTICS)] mold Allergy Intermediate Shortness Verified 08/25/23 22:42 of Breath Assessment & Plan Assessment & Plan (1) Dementia: Status: Acute Code(s): F03.90 - Unspecified dementia, unspecified severity, without behavioral disturbance, psychotic disturbance, mood disturbance, and anxiety (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 Plan 1. Continue same treatment. 2. Waiting for placement. Reason for continued inpatient stay Substantial Risk for: inability to function, rapid decompensation and med/psych decompensation Time Spent With Patient Time: Total time managing care of this patient today __20__ minutes.
[2023-11-26] MEDS: QUEtiapine Fumarate 50 MG TABLET PO ×2 (16:22→20:08)
[2023-11-26 20:00] VITALS: BP 135/72; PULSE 86; RESP 18; TEMP 36.4; O2SAT 95
[2023-11-26] MEDS: Donepezil HCl 10 MG TABLET PO (20:08)
[2023-11-26] MEDS: traZODone HCL 50 MG TABLET PO ×2 (22:11→23:19)
[2023-11-27 08:00] VITALS: BP 138/67; PULSE 80; RESP 17; TEMP 36.8; O2SAT 96
[2023-11-27] MEDS: Sertraline HCL 50 MG TABLET PO (08:50)
[2023-11-27] MEDS: QUEtiapine Fumarate 25 MG TABLET 12.5 MG PO ×2 (08:50→14:22)
[2023-11-27] MEDS: Thiamine HCL 100 MG TABLET PO (08:50)
[2023-11-27] MEDS: Memantine HCl 10 MG TABLET PO ×2 (08:50→19:24)
[2023-11-27] MEDS: Brimonidine Tartrate 0.2% Oph 5 ML BOTTLE 1 DROP EYE-BOTH ×3 (08:51→19:24)
[2023-11-27 10:42] VITALS: BMI 24.1
--- NOTE | 2023-11-27 16:06 | P.PNPSI_ITS ---
Subjective Subjective Date of Service: 11/27/23 Reason For Visit: Wernicke-Korsakoff Syndrome Subjective Notes: Conditional Voluntary Interim History: The nursing staff reported no changes in his mental status. Waiting for placement. On interview the patient denies new symptoms Mental Status Exam Mental Status Exam Patient Appearance: Appropriate Patient Orientation: Person and Situation Level of Consciousness: Awake and Appropriate Patient Behavior: Guarded and Passive Mood Description: Withdrawn Affect Description: Constricted Patient Cognition Impaired: Yes Ability to Follow Directions: Good Speech Pattern: Clear Hallucinations: None Delusions: Not Present Thought Process: Distracted and Slowed Thinking Thought Content: positive for [place] Judgement: Fair Diagnostics Vital Signs (24Hr): Vital Signs - 24 hr 11/26/23 20:00 11/27/23 08:00 Temperature 97.5 F 98.2 F Pulse Rate 86 80 Respiratory Rate 18 17 Blood Pressure 135/72 138/67 Pulse Oximetry 95 96 Oxygen Delivery Method Room Air Room Air BMI result Body Mass Index 24.1 Labs 10/16/23 16:18 10/16/23 16:18 Imaging Radiology Impressions: ITS Impressions Shoulder X-Ray 07/30/23 09:55 IMPRESSION: 1. No metallic foreign body. 2. Calcification adjacent to the humeral head likely on the basis of calcific tendinosis. Orbit X-Ray 07/30/23 11:07 IMPRESSION: 1. No unexpected radiopaque foreign bodies. 2. Clear lungs. 3. Nonobstructive bowel gas pattern. 4. Moderate to large degree of colonic stool burden. Brain MRI 07/30/23 20:40 IMPRESSION: No acute intracranial abnormality. No findings to suggest Wernicke encephalopathy. Hand X-Ray 08/26/23 09:05 IMPRESSION: No fracture seen. Medications Medications Current Medications Acetaminophen (Acetaminophen 325 Mg Tablet) 650 mg PO Q6H PRN PRN Reason: Headache/Pain (1-10) Last Admin: 11/17/23 13:51 Dose: 650 mg Al Hydroxide/Mg Hydroxide (Magnesium Hydrox/Alum Hydrox 30 Ml Oral.Susp) 30 ml PO Q6H PRN PRN Reason: Heartburn/Nausea Last Admin: 11/25/23 21:13 Dose: 30 ml Artificial Tears (Artificial Tears 15 Ml Drops) 1 drop EYE-BOTH Q4H PRN PRN Reason: Dry Eyes Last Admin: 11/22/23 10:05 Dose: 1 drop Benzocaine (Throat Lozenge, Medicated Lozenge) 1 lozenge MUCOUS MEM Q4H PRN PRN Reason: Sore Throat Brimonidine Tartrate (Brimonidine Tartrate 0.2% Oph 5 Ml Bottle) 1 drop EYE- BOTH TID [facility] Last Admin: 11/27/23 14:23 Dose: 1 drop Donepezil HCl (Donepezil Hcl 10 Mg Tablet) 10 mg PO BEDTIME [facility] Last Admin: 11/26/23 20:08 Dose: 10 mg Guaifenesin (Guaifenesin 200 Mg/10 Ml 10 Ml Liquid) 10 ml PO Q6H PRN PRN Reason: Cough Last Admin: 09/05/23 23:21 Dose: 10 ml Lidocaine (Lidocaine 4 % Patch Adh..Patch) 2 patch TRANSDERMA DAILY PRN; Protocol PRN Reason: bilateral low back pain Last Admin: 09/26/23 04:27 Dose: 2 patch Magnesium Hydroxide (Milk Of Magnesia 30 Ml Oral.Susp) 30 ml PO DAILY PRN PRN Reason: Constipation Last Admin: 08/23/23 08:41 Dose: 30 ml Memantine (Memantine Hcl 10 Mg Tablet) 10 mg PO BID [facility] Last Admin: 11/27/23 08:50 Dose: 10 mg Quetiapine Fumarate (Quetiapine Fumarate 25 Mg Tablet) 25 mg PO BID PRN PRN Reason: anxiety/agitation Last Admin: 11/26/23 22:11 Dose: 25 mg Quetiapine Fumarate (Quetiapine Fumarate 25 Mg Tablet) 12.5 mg PO BID@0830,1330 [facility] Last Admin: 11/27/23 14:22 Dose: 12.5 mg Quetiapine Fumarate (Quetiapine Fumarate 50 Mg Tablet) 50 mg PO BEDTIME [facility] Last Admin: 11/26/23 20:08 Dose: 50 mg Quetiapine Fumarate (Quetiapine Fumarate 50 Mg Tablet) 50 mg PO DAILY@1700 [facility] Last Admin: 11/26/23 16:22 Dose: 50 mg Sertraline HCl (Sertraline Hcl 50 Mg Tablet) 50 mg PO DAILY [facility] Last Admin: 11/27/23 08:50 Dose: 50 mg Sumatriptan Succinate (Sumatriptan Succinate 50 Mg Tablet) 50 mg PO DAILY MRX1 PRN PRN Reason: Migraine Headache Last Admin: 11/19/23 13:44 Dose: 50 mg Thiamine HCl (Thiamine Hcl 100 Mg Tablet) 100 mg PO DAILY [facility] Last Admin: 11/27/23 08:50 Dose: 100 mg Trazodone HCl (Trazodone Hcl 50 Mg Tablet) 50 mg PO BEDTIME MRX1 PRN PRN Reason: Insomnia Last Admin: 11/26/23 23:19 Dose: 50 mg Allergies Allergies Allergy/AdvReac Type Severity Reaction Status Date / Time Sulfa (Sulfonamide Allergy Severe ANAPHYLAXIS Verified 08/25/23 23:13 Antibiotics) [SULFA (SULFONAMIDE ANTIBIOTICS)] mold Allergy Intermediate Shortness Verified 08/25/23 22:42 of Breath Assessment & Plan Assessment & Plan (1) Dementia: Status: Acute Code(s): F03.90 - Unspecified dementia, unspecified severity, without behavioral disturbance, psychotic disturbance, mood disturbance, and anxiety (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 Plan 1. Continue same treatment. 2. Waiting for placement. Reason for continued inpatient stay Substantial Risk for: inability to function, rapid decompensation and med/psych decompensation Time Spent With Patient Time: Total time managing care of this patient today __20__ minutes.
[2023-11-27] MEDS: QUEtiapine Fumarate 50 MG TABLET PO ×2 (16:56→19:25)
[2023-11-27 19:23] VITALS: BP 116/56; PULSE 72; RESP 15; TEMP 35.9; O2SAT 95
[2023-11-27] MEDS: Donepezil HCl 10 MG TABLET PO (19:25)
[2023-11-28 09:04] VITALS: BP 110/69; PULSE 88; RESP 15; TEMP 36.9; O2SAT 96
[2023-11-28] MEDS: QUEtiapine Fumarate 25 MG TABLET 12.5 MG PO ×2 (09:05→15:02)
[2023-11-28] MEDS: Brimonidine Tartrate 0.2% Oph 5 ML BOTTLE 1 DROP EYE-BOTH ×3 (09:05→20:47)
[2023-11-28] MEDS: Memantine HCl 10 MG TABLET PO ×2 (09:06→20:45)
[2023-11-28] MEDS: Thiamine HCL 100 MG TABLET PO (09:07)
[2023-11-28] MEDS: Sertraline HCL 50 MG TABLET PO (09:07)
[2023-11-28] MEDS: SUMAtriptan succinate 50 MG TABLET PO (12:50)
--- NOTE | 2023-11-28 15:20 | P.PNPSI_ITS ---
Subjective Subjective Date of Service: 11/28/23 Reason For Visit: Wernicke-Korsakoff Syndrome Subjective Notes: Conditional Voluntary Interim History: The nursing staff reported the patient slept 7 hours, the social work supervisor reported the [facility] accepted for next week. On interview the patient denies new symptoms, waiting for placement. Mental Status Exam Mental Status Exam Patient Appearance: Appropriate Patient Orientation: Person and Situation Level of Consciousness: Awake and Appropriate Patient Behavior: Guarded and Passive Mood Description: Withdrawn Affect Description: Constricted Patient Cognition Impaired: Yes Ability to Follow Directions: Good Speech Pattern: Clear Hallucinations: None Delusions: Not Present Thought Process: Distracted and Slowed Thinking Thought Content: positive for [place] and positive for Poverty of Content Judgement: Fair Diagnostics Vital Signs (24Hr): Vital Signs - 24 hr 11/27/23 19:23 11/28/23 09:04 Temperature 96.7 F L 98.4 F Pulse Rate 72 88 Respiratory Rate 15 15 Blood Pressure 116/56 L 110/69 Pulse Oximetry 95 96 Oxygen Delivery Method Room Air Room Air BMI result Body Mass Index 24.1 Labs 10/16/23 16:18 10/16/23 16:18 Imaging Radiology Impressions: ITS Impressions Shoulder X-Ray 07/30/23 09:55 IMPRESSION: 1. No metallic foreign body. 2. Calcification adjacent to the humeral head likely on the basis of calcific tendinosis. Orbit X-Ray 07/30/23 11:07 IMPRESSION: 1. No unexpected radiopaque foreign bodies. 2. Clear lungs. 3. Nonobstructive bowel gas pattern. 4. Moderate to large degree of colonic stool burden. Brain MRI 07/30/23 20:40 IMPRESSION: No acute intracranial abnormality. No findings to suggest Wernicke encephalopathy. Hand X-Ray 08/26/23 09:05 IMPRESSION: No fracture seen. Medications Medications Current Medications Acetaminophen (Acetaminophen 325 Mg Tablet) 650 mg PO Q6H PRN PRN Reason: Headache/Pain (1-10) Last Admin: 11/17/23 13:51 Dose: 650 mg Al Hydroxide/Mg Hydroxide (Magnesium Hydrox/Alum Hydrox 30 Ml Oral.Susp) 30 ml PO Q6H PRN PRN Reason: Heartburn/Nausea Last Admin: 11/25/23 21:13 Dose: 30 ml Artificial Tears (Artificial Tears 15 Ml Drops) 1 drop EYE-BOTH Q4H PRN PRN Reason: Dry Eyes Last Admin: 11/22/23 10:05 Dose: 1 drop Benzocaine (Throat Lozenge, Medicated Lozenge) 1 lozenge MUCOUS MEM Q4H PRN PRN Reason: Sore Throat Brimonidine Tartrate (Brimonidine Tartrate 0.2% Oph 5 Ml Bottle) 1 drop EYE- BOTH TID [facility] Last Admin: 11/28/23 15:03 Dose: 1 drop Donepezil HCl (Donepezil Hcl 10 Mg Tablet) 10 mg PO BEDTIME [facility] Last Admin: 11/27/23 19:25 Dose: 10 mg Guaifenesin (Guaifenesin 200 Mg/10 Ml 10 Ml Liquid) 10 ml PO Q6H PRN PRN Reason: Cough Last Admin: 09/05/23 23:21 Dose: 10 ml Lidocaine (Lidocaine 4 % Patch Adh..Patch) 2 patch TRANSDERMA DAILY PRN; Protocol PRN Reason: bilateral low back pain Last Admin: 09/26/23 04:27 Dose: 2 patch Magnesium Hydroxide (Milk Of Magnesia 30 Ml Oral.Susp) 30 ml PO DAILY PRN PRN Reason: Constipation Last Admin: 08/23/23 08:41 Dose: 30 ml Memantine (Memantine Hcl 10 Mg Tablet) 10 mg PO BID [facility] Last Admin: 11/28/23 09:06 Dose: 10 mg Quetiapine Fumarate (Quetiapine Fumarate 25 Mg Tablet) 25 mg PO BID PRN PRN Reason: anxiety/agitation Last Admin: 11/26/23 22:11 Dose: 25 mg Quetiapine Fumarate (Quetiapine Fumarate 25 Mg Tablet) 12.5 mg PO BID@0830,1330 [facility] Last Admin: 11/28/23 15:02 Dose: 12.5 mg Quetiapine Fumarate (Quetiapine Fumarate 50 Mg Tablet) 50 mg PO BEDTIME [facility] Last Admin: 11/27/23 19:25 Dose: 50 mg Quetiapine Fumarate (Quetiapine Fumarate 50 Mg Tablet) 50 mg PO DAILY@1700 [facility] Last Admin: 11/27/23 16:56 Dose: 50 mg Sertraline HCl (Sertraline Hcl 50 Mg Tablet) 50 mg PO DAILY [facility] Last Admin: 11/28/23 09:07 Dose: 50 mg Sumatriptan Succinate (Sumatriptan Succinate 50 Mg Tablet) 50 mg PO DAILY MRX1 PRN PRN Reason: Migraine Headache Last Admin: 11/28/23 12:50 Dose: 50 mg Thiamine HCl (Thiamine Hcl 100 Mg Tablet) 100 mg PO DAILY [facility] Last Admin: 11/28/23 09:07 Dose: 100 mg Trazodone HCl (Trazodone Hcl 50 Mg Tablet) 50 mg PO BEDTIME MRX1 PRN PRN Reason: Insomnia Last Admin: 11/26/23 23:19 Dose: 50 mg Allergies Allergies Allergy/AdvReac Type Severity Reaction Status Date / Time Sulfa (Sulfonamide Allergy Severe ANAPHYLAXIS Verified 08/25/23 23:13 Antibiotics) [SULFA (SULFONAMIDE ANTIBIOTICS)] mold Allergy Intermediate Shortness Verified 08/25/23 22:42 of Breath Assessment & Plan Assessment & Plan (1) Dementia: Status: Acute Code(s): F03.90 - Unspecified dementia, unspecified severity, without behavioral disturbance, psychotic disturbance, mood disturbance, and anxiety (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 Plan 1. Continue same treatment. 2. Waiting for placement. Reason for continued inpatient stay Substantial Risk for: inability to function, rapid decompensation and med/psych decompensation Time Spent With Patient Time: Total time managing care of this patient today __20__ minutes.
[2023-11-28 20:00] VITALS: BP 146/74; PULSE 71; RESP 16; TEMP 37.2; O2SAT 96
[2023-11-28] MEDS: Donepezil HCl 10 MG TABLET PO (20:45)
[2023-11-28] MEDS: traZODone HCL 50 MG TABLET PO (20:45)
[2023-11-28] MEDS: QUEtiapine Fumarate 50 MG TABLET PO (20:46)
[2023-11-29] MEDS: traZODone HCL 50 MG TABLET PO ×2 (03:33→20:35)
[2023-11-29 08:00] VITALS: BP 113/54; PULSE 71; RESP 16; TEMP 36.9; O2SAT 96
[2023-11-29] MEDS: Memantine HCl 10 MG TABLET PO ×2 (08:52→20:34)
[2023-11-29] MEDS: QUEtiapine Fumarate 25 MG TABLET 12.5 MG PO ×2 (08:52→12:52)
[2023-11-29] MEDS: Thiamine HCL 100 MG TABLET PO (08:52)
[2023-11-29] MEDS: Sertraline HCL 50 MG TABLET PO (08:52)
[2023-11-29] MEDS: Brimonidine Tartrate 0.2% Oph 5 ML BOTTLE 1 DROP EYE-BOTH ×3 (08:55→20:34)
[2023-11-29] MEDS: QUEtiapine Fumarate 50 MG TABLET PO ×2 (17:20→20:34)
[2023-11-29 20:00] VITALS: BP 121/60; PULSE 68; RESP 16; TEMP 36.7; O2SAT 95
[2023-11-29] MEDS: Donepezil HCl 10 MG TABLET PO (20:35)
[2023-11-30] MEDS: Acetaminophen 325 MG TABLET 650 MG PO (00:39)
[2023-11-30] MEDS: traZODone HCL 50 MG TABLET PO (00:40)
[2023-11-30] MEDS: QUEtiapine Fumarate 25 MG TABLET PO (00:40)
[2023-11-30 08:46] VITALS: BP 121/72; PULSE 72; RESP 18; TEMP 36.2; O2SAT 96
[2023-11-30] MEDS: Brimonidine Tartrate 0.2% Oph 5 ML BOTTLE 1 DROP EYE-BOTH ×3 (08:47→20:24)
[2023-11-30] MEDS: SUMAtriptan succinate 50 MG TABLET PO (08:47)
[2023-11-30] MEDS: Memantine HCl 10 MG TABLET PO ×2 (08:48→20:25)
[2023-11-30] MEDS: Thiamine HCL 100 MG TABLET PO (08:48)
[2023-11-30] MEDS: Sertraline HCL 50 MG TABLET PO (08:48)
[2023-11-30] MEDS: QUEtiapine Fumarate 25 MG TABLET 12.5 MG PO ×2 (08:48→13:28)
[2023-11-30] MEDS: QUEtiapine Fumarate 50 MG TABLET PO ×2 (16:21→20:26)
--- NOTE | 2023-11-30 16:48 | P.PNPSI_ITS ---
Subjective Subjective Date of Service: 11/30/23 Reason For Visit: Wernicke-Korsakoff Syndrome Interim History: pt seen on 11/28; discussed with team pt reading book on patio; says he's fine, no complaints; looking forward to discharge. Mental Status Exam Mental Status Exam Patient Appearance: Well Grooomed and Appropriate Patient Orientation: Person and Situation Level of Consciousness: Awake and Appropriate Patient Behavior: Guarded and Passive Mood Description: Withdrawn Affect Description: Constricted Patient Cognition Impaired: Yes Ability to Follow Directions: Good Speech Pattern: Clear Hallucinations: None Delusions: Not Present Thought Process: Distracted and Slowed Thinking Thought Content: positive for [place] and positive for Poverty of Content Judgement: Fair Diagnostics Vital Signs (24Hr): Vital Signs - 24 hr 11/29/23 20:00 11/30/23 08:46 Temperature 98.1 F 97.1 F Pulse Rate 68 72 Respiratory Rate 16 18 Blood Pressure 121/60 121/72 Pulse Oximetry 95 96 Oxygen Delivery Method Room Air Room Air BMI result Body Mass Index 24.1 Labs 10/16/23 16:18 10/16/23 16:18 Imaging Radiology Impressions: ITS Impressions Shoulder X-Ray 07/30/23 09:55 IMPRESSION: 1. No metallic foreign body. 2. Calcification adjacent to the humeral head likely on the basis of calcific tendinosis. Orbit X-Ray 07/30/23 11:07 IMPRESSION: 1. No unexpected radiopaque foreign bodies. 2. Clear lungs. 3. Nonobstructive bowel gas pattern. 4. Moderate to large degree of colonic stool burden. Brain MRI 07/30/23 20:40 IMPRESSION: No acute intracranial abnormality. No findings to suggest Wernicke encephalopathy. Hand X-Ray 08/26/23 09:05 IMPRESSION: No fracture seen. Medications Medications Current Medications Acetaminophen (Acetaminophen 325 Mg Tablet) 650 mg PO Q6H PRN PRN Reason: Headache/Pain (1-10) Last Admin: 11/30/23 00:39 Dose: 650 mg Al Hydroxide/Mg Hydroxide (Magnesium Hydrox/Alum Hydrox 30 Ml Oral.Susp) 30 ml PO Q6H PRN PRN Reason: Heartburn/Nausea Last Admin: 11/25/23 21:13 Dose: 30 ml Artificial Tears (Artificial Tears 15 Ml Drops) 1 drop EYE-BOTH Q4H PRN PRN Reason: Dry Eyes Last Admin: 11/22/23 10:05 Dose: 1 drop Benzocaine (Throat Lozenge, Medicated Lozenge) 1 lozenge MUCOUS MEM Q4H PRN PRN Reason: Sore Throat Brimonidine Tartrate (Brimonidine Tartrate 0.2% Oph 5 Ml Bottle) 1 drop EYE- BOTH TID [facility] Last Admin: 11/30/23 14:20 Dose: 1 drop Donepezil HCl (Donepezil Hcl 10 Mg Tablet) 10 mg PO BEDTIME [facility] Last Admin: 11/29/23 20:35 Dose: 10 mg Guaifenesin (Guaifenesin 200 Mg/10 Ml 10 Ml Liquid) 10 ml PO Q6H PRN PRN Reason: Cough Last Admin: 09/05/23 23:21 Dose: 10 ml Lidocaine (Lidocaine 4 % Patch Adh..Patch) 2 patch TRANSDERMA DAILY PRN; Protocol PRN Reason: bilateral low back pain Last Admin: 09/26/23 04:27 Dose: 2 patch Magnesium Hydroxide (Milk Of Magnesia 30 Ml Oral.Susp) 30 ml PO DAILY PRN PRN Reason: Constipation Last Admin: 08/23/23 08:41 Dose: 30 ml Memantine (Memantine Hcl 10 Mg Tablet) 10 mg PO BID [facility] Last Admin: 11/30/23 08:48 Dose: 10 mg Quetiapine Fumarate (Quetiapine Fumarate 25 Mg Tablet) 25 mg PO BID PRN PRN Reason: anxiety/agitation Last Admin: 11/30/23 00:40 Dose: 25 mg Quetiapine Fumarate (Quetiapine Fumarate 25 Mg Tablet) 12.5 mg PO BID@0830,1330 [facility] Last Admin: 11/30/23 13:28 Dose: 12.5 mg Quetiapine Fumarate (Quetiapine Fumarate 50 Mg Tablet) 50 mg PO BEDTIME [facility] Last Admin: 11/29/23 20:34 Dose: 50 mg Quetiapine Fumarate (Quetiapine Fumarate 50 Mg Tablet) 50 mg PO DAILY@1700 [facility] Last Admin: 11/30/23 16:21 Dose: 50 mg Sertraline HCl (Sertraline Hcl 50 Mg Tablet) 50 mg PO DAILY [facility] Last Admin: 11/30/23 08:48 Dose: 50 mg Sumatriptan Succinate (Sumatriptan Succinate 50 Mg Tablet) 50 mg PO DAILY MRX1 PRN PRN Reason: Migraine Headache Last Admin: 11/30/23 08:47 Dose: 50 mg Thiamine HCl (Thiamine Hcl 100 Mg Tablet) 100 mg PO DAILY [facility] Last Admin: 11/30/23 08:48 Dose: 100 mg Trazodone HCl (Trazodone Hcl 50 Mg Tablet) 50 mg PO BEDTIME MRX1 PRN PRN Reason: Insomnia Last Admin: 11/30/23 00:40 Dose: 50 mg Allergies Allergies Allergy/AdvReac Type Severity Reaction Status Date / Time Sulfa (Sulfonamide Allergy Severe ANAPHYLAXIS Verified 08/25/23 23:13 Antibiotics) [SULFA (SULFONAMIDE ANTIBIOTICS)] mold Allergy Intermediate Shortness Verified 08/25/23 22:42 of Breath Assessment & Plan Assessment & Plan (1) Dementia: Status: Acute Code(s): F03.90 - Unspecified dementia, unspecified severity, without behavioral disturbance, psychotic disturbance, mood disturbance, and anxiety (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 Plan 1. Continue same treatment. 2. Waiting for placement. Patient educated on: diagnosis Informed Consent: understands, does not understand and further education needed Reason for continued inpatient stay Substantial Risk for: stable for discharge Time Spent With Patient Time: Total time managing care of this patient today ____ minutes.
[2023-11-30 20:00] VITALS: BP 123/62; PULSE 72; RESP 16; TEMP 36.5; O2SAT 94
[2023-11-30] MEDS: Magnesium Hydrox/Alum Hydrox 30 ML ORAL.SUSP PO (20:24)
[2023-11-30] MEDS: Donepezil HCl 10 MG TABLET PO (20:25)
[2023-12-01 08:00] VITALS: BP 129/68; PULSE 71; RESP 17; TEMP 36.3; O2SAT 96
[2023-12-01] MEDS: QUEtiapine Fumarate 25 MG TABLET 12.5 MG PO ×2 (08:45→14:37)
[2023-12-01] MEDS: Thiamine HCL 100 MG TABLET PO (08:45)
[2023-12-01] MEDS: Sertraline HCL 50 MG TABLET PO (08:45)
[2023-12-01] MEDS: Memantine HCl 10 MG TABLET PO ×2 (08:45→20:10)
[2023-12-01] MEDS: Brimonidine Tartrate 0.2% Oph 5 ML BOTTLE 1 DROP EYE-BOTH ×3 (08:46→20:09)
--- NOTE | 2023-12-01 12:09 | P.PNPSI_ITS ---
Subjective Subjective Date of Service: 12/01/23 Reason For Visit: Wernicke-Korsakoff Syndrome Subjective Notes: Conditional Voluntary Interim History: The nursing staff reported no changes in his mental status compliant with treatment. The social welfare research worker reported that he had been accepted at [facility] and probably he could be discharged next Friday. On interview the patient denies new symptoms, waiting for placement. Mental Status Exam Mental Status Exam Patient Appearance: Well Grooomed and Appropriate Patient Orientation: Person and Situation Level of Consciousness: Awake and Appropriate Patient Behavior: Guarded and Passive Mood Description: Withdrawn Affect Description: Constricted Patient Cognition Impaired: Yes Ability to Follow Directions: Good Speech Pattern: Clear Hallucinations: None Delusions: Not Present Thought Process: Distracted and Slowed Thinking Thought Content: positive for [place] and positive for Poverty of Content Judgement: Fair Diagnostics Vital Signs (24Hr): Vital Signs - 24 hr 11/30/23 20:00 12/01/23 08:00 Temperature 97.7 F 97.4 F Pulse Rate 72 71 Respiratory Rate 16 17 Blood Pressure 123/62 129/68 Pulse Oximetry 94 96 Oxygen Delivery Method Room Air Room Air BMI result Body Mass Index 24.1 Labs 10/16/23 16:18 10/16/23 16:18 Imaging Radiology Impressions: ITS Impressions Shoulder X-Ray 07/30/23 09:55 IMPRESSION: 1. No metallic foreign body. 2. Calcification adjacent to the humeral head likely on the basis of calcific tendinosis. Orbit X-Ray 07/30/23 11:07 IMPRESSION: 1. No unexpected radiopaque foreign bodies. 2. Clear lungs. 3. Nonobstructive bowel gas pattern. 4. Moderate to large degree of colonic stool burden. Brain MRI 07/30/23 20:40 IMPRESSION: No acute intracranial abnormality. No findings to suggest Wernicke encephalopathy. Hand X-Ray 08/26/23 09:05 IMPRESSION: No fracture seen. Medications Medications Current Medications Acetaminophen (Acetaminophen 325 Mg Tablet) 650 mg PO Q6H PRN PRN Reason: Headache/Pain (1-10) Last Admin: 11/30/23 00:39 Dose: 650 mg Al Hydroxide/Mg Hydroxide (Magnesium Hydrox/Alum Hydrox 30 Ml Oral.Susp) 30 ml PO Q6H PRN PRN Reason: Heartburn/Nausea Last Admin: 11/30/23 20:24 Dose: 30 ml Artificial Tears (Artificial Tears 15 Ml Drops) 1 drop EYE-BOTH Q4H PRN PRN Reason: Dry Eyes Last Admin: 11/22/23 10:05 Dose: 1 drop Benzocaine (Throat Lozenge, Medicated Lozenge) 1 lozenge MUCOUS MEM Q4H PRN PRN Reason: Sore Throat Brimonidine Tartrate (Brimonidine Tartrate 0.2% Oph 5 Ml Bottle) 1 drop EYE- BOTH TID [facility] Last Admin: 12/01/23 08:46 Dose: 1 drop Donepezil HCl (Donepezil Hcl 10 Mg Tablet) 10 mg PO BEDTIME [facility] Last Admin: 11/30/23 20:25 Dose: 10 mg Guaifenesin (Guaifenesin 200 Mg/10 Ml 10 Ml Liquid) 10 ml PO Q6H PRN PRN Reason: Cough Last Admin: 09/05/23 23:21 Dose: 10 ml Lidocaine (Lidocaine 4 % Patch Adh..Patch) 2 patch TRANSDERMA DAILY PRN; Protocol PRN Reason: bilateral low back pain Last Admin: 09/26/23 04:27 Dose: 2 patch Magnesium Hydroxide (Milk Of Magnesia 30 Ml Oral.Susp) 30 ml PO DAILY PRN PRN Reason: Constipation Last Admin: 08/23/23 08:41 Dose: 30 ml Memantine (Memantine Hcl 10 Mg Tablet) 10 mg PO BID [facility] Last Admin: 12/01/23 08:45 Dose: 10 mg Quetiapine Fumarate (Quetiapine Fumarate 25 Mg Tablet) 25 mg PO BID PRN PRN Reason: anxiety/agitation Last Admin: 11/30/23 00:40 Dose: 25 mg Quetiapine Fumarate (Quetiapine Fumarate 25 Mg Tablet) 12.5 mg PO BID@0830,1330 [facility] Last Admin: 12/01/23 08:45 Dose: 12.5 mg Quetiapine Fumarate (Quetiapine Fumarate 50 Mg Tablet) 50 mg PO BEDTIME [facility] Last Admin: 11/30/23 20:26 Dose: 50 mg Quetiapine Fumarate (Quetiapine Fumarate 50 Mg Tablet) 50 mg PO DAILY@1700 [facility] Last Admin: 11/30/23 16:21 Dose: 50 mg Sertraline HCl (Sertraline Hcl 50 Mg Tablet) 50 mg PO DAILY [facility] Last Admin: 12/01/23 08:45 Dose: 50 mg Sumatriptan Succinate (Sumatriptan Succinate 50 Mg Tablet) 50 mg PO DAILY MRX1 PRN PRN Reason: Migraine Headache Last Admin: 11/30/23 08:47 Dose: 50 mg Thiamine HCl (Thiamine Hcl 100 Mg Tablet) 100 mg PO DAILY [facility] Last Admin: 12/01/23 08:45 Dose: 100 mg Trazodone HCl (Trazodone Hcl 50 Mg Tablet) 50 mg PO BEDTIME MRX1 PRN PRN Reason: Insomnia Last Admin: 11/30/23 00:40 Dose: 50 mg Allergies Allergies Allergy/AdvReac Type Severity Reaction Status Date / Time Sulfa (Sulfonamide Allergy Severe ANAPHYLAXIS Verified 08/25/23 23:13 Antibiotics) [SULFA (SULFONAMIDE ANTIBIOTICS)] mold Allergy Intermediate Shortness Verified 08/25/23 22:42 of Breath Assessment & Plan Assessment & Plan (1) Dementia: Status: Acute Code(s): F03.90 - Unspecified dementia, unspecified severity, without behavioral disturbance, psychotic disturbance, mood disturbance, and anxiety (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 Plan 1. Continue same treatment. 2. Waiting for placement. Reason for continued inpatient stay Substantial Risk for: inability to function, rapid decompensation and med/psych decompensation Time Spent With Patient Time: Total time managing care of this patient today _20___ minutes.
[2023-12-01] MEDS: QUEtiapine Fumarate 50 MG TABLET PO ×2 (16:56→20:10)
[2023-12-01 20:00] VITALS: BP 119/58; PULSE 77; RESP 17; TEMP 36.6; O2SAT 94
[2023-12-01] MEDS: Donepezil HCl 10 MG TABLET PO (20:09)
[2023-12-01] MEDS: traZODone HCL 50 MG TABLET PO (20:10)
[2023-12-02 08:33] VITALS: BP 147/70; PULSE 78; RESP 17; TEMP 36.1; O2SAT 95
[2023-12-02] MEDS: Sertraline HCL 50 MG TABLET PO (08:37)
[2023-12-02] MEDS: QUEtiapine Fumarate 25 MG TABLET 12.5 MG PO ×2 (08:37→14:12)
[2023-12-02] MEDS: Memantine HCl 10 MG TABLET PO ×2 (08:37→20:37)
[2023-12-02] MEDS: Thiamine HCL 100 MG TABLET PO (08:37)
[2023-12-02] MEDS: Brimonidine Tartrate 0.2% Oph 5 ML BOTTLE 1 DROP EYE-BOTH ×3 (08:38→20:37)
--- NOTE | 2023-12-02 11:55 | HO.PSYCHPN ---
Subjective Subjective Date of Service: 12/02/23 Reason For Visit: Wernicke-Korsakoff Syndrome Subjective Notes: Conditional Voluntary Interim History: The nursing staff reported the patient had been compliant with treatment, the executive secretary social welfare reported he is going to be discharged tomorrow. On interview the patient denies new symptoms waiting for placement. Mental Status Exam Mental Status Exam Patient Appearance: Appropriate Patient Orientation: Person and Situation Level of Consciousness: Awake and Appropriate Patient Behavior: Guarded and Passive Mood Description: Withdrawn Affect Description: Constricted Patient Cognition Impaired: Yes Ability to Follow Directions: Good Speech Pattern: Clear Hallucinations: None Delusions: Not Present Thought Process: Distracted and Slowed Thinking Thought Content: positive for [place] and positive for Poverty of Content Judgement: Fair Diagnostics Vital Signs (24Hr): Vital Signs - 24 hr 12/01/23 20:00 12/02/23 08:33 Temperature 97.9 F 97 F Pulse Rate 77 78 Respiratory Rate 17 17 Blood Pressure 119/58 L 147/70 H Pulse Oximetry 94 95 Oxygen Delivery Method Room Air Room Air BMI result Body Mass Index 24.1 Labs 10/16/23 16:18 10/16/23 16:18 Imaging Radiology Impressions: ITS Impressions Shoulder X-Ray 07/30/23 09:55 IMPRESSION: 1. No metallic foreign body. 2. Calcification adjacent to the humeral head likely on the basis of calcific tendinosis. Orbit X-Ray 07/30/23 11:07 IMPRESSION: 1. No unexpected radiopaque foreign bodies. 2. Clear lungs. 3. Nonobstructive bowel gas pattern. 4. Moderate to large degree of colonic stool burden. Brain MRI 07/30/23 20:40 IMPRESSION: No acute intracranial abnormality. No findings to suggest Wernicke encephalopathy. Hand X-Ray 08/26/23 09:05 IMPRESSION: No fracture seen. Medications Medications Current Medications Acetaminophen (Acetaminophen 325 Mg Tablet) 650 mg PO Q6H PRN PRN Reason: Headache/Pain (1-10) Last Admin: 11/30/23 00:39 Dose: 650 mg Al Hydroxide/Mg Hydroxide (Magnesium Hydrox/Alum Hydrox 30 Ml Oral.Susp) 30 ml PO Q6H PRN PRN Reason: Heartburn/Nausea Last Admin: 11/30/23 20:24 Dose: 30 ml Artificial Tears (Artificial Tears 15 Ml Drops) 1 drop EYE-BOTH Q4H PRN PRN Reason: Dry Eyes Last Admin: 11/22/23 10:05 Dose: 1 drop Benzocaine (Throat Lozenge, Medicated Lozenge) 1 lozenge MUCOUS MEM Q4H PRN PRN Reason: Sore Throat Brimonidine Tartrate (Brimonidine Tartrate 0.2% Oph 5 Ml Bottle) 1 drop EYE-BOTH TID [facility] Last Admin: 12/02/23 08:38 Dose: 1 drop Donepezil HCl (Donepezil Hcl 10 Mg Tablet) 10 mg PO BEDTIME [facility] Last Admin: 12/01/23 20:09 Dose: 10 mg Guaifenesin (Guaifenesin 200 Mg/10 Ml 10 Ml Liquid) 10 ml PO Q6H PRN PRN Reason: Cough Last Admin: 09/05/23 23:21 Dose: 10 ml Lidocaine (Lidocaine 4 % Patch Adh..Patch) 2 patch TRANSDERMA DAILY PRN; Protocol PRN Reason: bilateral low back pain Last Admin: 09/26/23 04:27 Dose: 2 patch Magnesium Hydroxide (Milk Of Magnesia 30 Ml Oral.Susp) 30 ml PO DAILY PRN PRN Reason: Constipation Last Admin: 08/23/23 08:41 Dose: 30 ml Memantine (Memantine Hcl 10 Mg Tablet) 10 mg PO BID [facility] Last Admin: 12/02/23 08:37 Dose: 10 mg Quetiapine Fumarate (Quetiapine Fumarate 25 Mg Tablet) 25 mg PO BID PRN PRN Reason: anxiety/agitation Last Admin: 11/30/23 00:40 Dose: 25 mg Quetiapine Fumarate (Quetiapine Fumarate 25 Mg Tablet) 12.5 mg PO BID@0830,1330 [facility] Last Admin: 12/02/23 08:37 Dose: 12.5 mg Quetiapine Fumarate (Quetiapine Fumarate 50 Mg Tablet) 50 mg PO BEDTIME [facility] Last Admin: 12/01/23 20:10 Dose: 50 mg Quetiapine Fumarate (Quetiapine Fumarate 50 Mg Tablet) 50 mg PO DAILY@1700 [facility] Last Admin: 12/01/23 16:56 Dose: 50 mg Sertraline HCl (Sertraline Hcl 50 Mg Tablet) 50 mg PO DAILY [facility] Last Admin: 12/02/23 08:37 Dose: 50 mg Sumatriptan Succinate (Sumatriptan Succinate 50 Mg Tablet) 50 mg PO DAILY MRX1 PRN PRN Reason: Migraine Headache Last Admin: 11/30/23 08:47 Dose: 50 mg Thiamine HCl (Thiamine Hcl 100 Mg Tablet) 100 mg PO DAILY [facility] Last Admin: 12/02/23 08:37 Dose: 100 mg Trazodone HCl (Trazodone Hcl 50 Mg Tablet) 50 mg PO BEDTIME MRX1 PRN PRN Reason: Insomnia Last Admin: 12/01/23 20:10 Dose: 50 mg Allergies Allergies Allergy/AdvReac Type Severity Reaction Status Date / Time Sulfa (Sulfonamide Allergy Severe ANAPHYLAXIS Verified 08/25/23 23:13 Antibiotics) [SULFA (SULFONAMIDE ANTIBIOTICS)] mold Allergy Intermediate Shortness Verified 08/25/23 22:42 of Breath Assessment & Plan Assessment & Plan (1) Dementia: Status: Acute Code(s): F03.90 - Unspecified dementia, unspecified severity, without behavioral disturbance, psychotic disturbance, mood disturbance, and anxiety (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 Plan 1. Continue same treatment. 2. Waiting for placement. Reason for continued inpatient stay Substantial Risk for: inability to function, rapid decompensation and med/psych decompensation Time Spent With Patient Time: Total time managing care of this patient today __20__ minutes.
--- NOTE | 2023-12-02 12:52 | HO.PSYCHPN ---
Subjective Subjective Date of Service: 11/30/23 Reason For Visit: Wernicke-Korsakoff Syndrome Interim History: met with patient on 11/29; discussed with team no change in presentation; no complaints or requests. Asks about discharge and agrees to discuss with primray team when they return. Mental Status Exam Mental Status Exam Patient Appearance: Well Grooomed and Appropriate Patient Orientation: Person and Situation Level of Consciousness: Awake and Appropriate Patient Behavior: Guarded and Passive Mood Description: Withdrawn Affect Description: Constricted Patient Cognition Impaired: Yes Ability to Follow Directions: Good Speech Pattern: Clear Hallucinations: None Delusions: Not Present Thought Process: Distracted and Slowed Thinking Thought Content: positive for [place] and positive for Poverty of Content Judgement: Fair Diagnostics Vital Signs (24Hr): Vital Signs - 24 hr 12/01/23 20:00 12/02/23 08:33 Temperature 97.9 F 97 F Pulse Rate 77 78 Respiratory Rate 17 17 Blood Pressure 119/58 L 147/70 H Pulse Oximetry 94 95 Oxygen Delivery Method Room Air Room Air BMI result Body Mass Index 24.1 Labs 10/16/23 16:18 10/16/23 16:18 Imaging Radiology Impressions: ITS Impressions Shoulder X-Ray 07/30/23 09:55 IMPRESSION: 1. No metallic foreign body. 2. Calcification adjacent to the humeral head likely on the basis of calcific tendinosis. Orbit X-Ray 07/30/23 11:07 IMPRESSION: 1. No unexpected radiopaque foreign bodies. 2. Clear lungs. 3. Nonobstructive bowel gas pattern. 4. Moderate to large degree of colonic stool burden. Brain MRI 07/30/23 20:40 IMPRESSION: No acute intracranial abnormality. No findings to suggest Wernicke encephalopathy. Hand X-Ray 08/26/23 09:05 IMPRESSION: No fracture seen. Medications Medications Current Medications Acetaminophen (Acetaminophen 325 Mg Tablet) 650 mg PO Q6H PRN PRN Reason: Headache/Pain (1-10) Last Admin: 11/30/23 00:39 Dose: 650 mg Al Hydroxide/Mg Hydroxide (Magnesium Hydrox/Alum Hydrox 30 Ml Oral.Susp) 30 ml PO Q6H PRN PRN Reason: Heartburn/Nausea Last Admin: 11/30/23 20:24 Dose: 30 ml Artificial Tears (Artificial Tears 15 Ml Drops) 1 drop EYE-BOTH Q4H PRN PRN Reason: Dry Eyes Last Admin: 11/22/23 10:05 Dose: 1 drop Benzocaine (Throat Lozenge, Medicated Lozenge) 1 lozenge MUCOUS MEM Q4H PRN PRN Reason: Sore Throat Brimonidine Tartrate (Brimonidine Tartrate 0.2% Oph 5 Ml Bottle) 1 drop EYE-BOTH TID [facility] Last Admin: 12/02/23 08:38 Dose: 1 drop Donepezil HCl (Donepezil Hcl 10 Mg Tablet) 10 mg PO BEDTIME [facility] Last Admin: 12/01/23 20:09 Dose: 10 mg Guaifenesin (Guaifenesin 200 Mg/10 Ml 10 Ml Liquid) 10 ml PO Q6H PRN PRN Reason: Cough Last Admin: 09/05/23 23:21 Dose: 10 ml Lidocaine (Lidocaine 4 % Patch Adh..Patch) 2 patch TRANSDERMA DAILY PRN; Protocol PRN Reason: bilateral low back pain Last Admin: 09/26/23 04:27 Dose: 2 patch Magnesium Hydroxide (Milk Of Magnesia 30 Ml Oral.Susp) 30 ml PO DAILY PRN PRN Reason: Constipation Last Admin: 08/23/23 08:41 Dose: 30 ml Memantine (Memantine Hcl 10 Mg Tablet) 10 mg PO BID [facility] Last Admin: 12/02/23 08:37 Dose: 10 mg Quetiapine Fumarate (Quetiapine Fumarate 25 Mg Tablet) 25 mg PO BID PRN PRN Reason: anxiety/agitation Last Admin: 11/30/23 00:40 Dose: 25 mg Quetiapine Fumarate (Quetiapine Fumarate 25 Mg Tablet) 12.5 mg PO BID@0830,1330 [facility] Last Admin: 12/02/23 08:37 Dose: 12.5 mg Quetiapine Fumarate (Quetiapine Fumarate 50 Mg Tablet) 50 mg PO BEDTIME [facility] Last Admin: 12/01/23 20:10 Dose: 50 mg Quetiapine Fumarate (Quetiapine Fumarate 50 Mg Tablet) 50 mg PO DAILY@1700 [facility] Last Admin: 12/01/23 16:56 Dose: 50 mg Sertraline HCl (Sertraline Hcl 50 Mg Tablet) 50 mg PO DAILY [facility] Last Admin: 12/02/23 08:37 Dose: 50 mg Sumatriptan Succinate (Sumatriptan Succinate 50 Mg Tablet) 50 mg PO DAILY MRX1 PRN PRN Reason: Migraine Headache Last Admin: 11/30/23 08:47 Dose: 50 mg Thiamine HCl (Thiamine Hcl 100 Mg Tablet) 100 mg PO DAILY [facility] Last Admin: 12/02/23 08:37 Dose: 100 mg Trazodone HCl (Trazodone Hcl 50 Mg Tablet) 50 mg PO BEDTIME MRX1 PRN PRN Reason: Insomnia Last Admin: 12/01/23 20:10 Dose: 50 mg Allergies Allergies Allergy/AdvReac Type Severity Reaction Status Date / Time Sulfa (Sulfonamide Allergy Severe ANAPHYLAXIS Verified 08/25/23 23:13 Antibiotics) [SULFA (SULFONAMIDE ANTIBIOTICS)] mold Allergy Intermediate Shortness Verified 08/25/23 22:42 of Breath Assessment & Plan Assessment & Plan (1) Dementia: Status: Acute Code(s): F03.90 - Unspecified dementia, unspecified severity, without behavioral disturbance, psychotic disturbance, mood disturbance, and anxiety (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 Plan 1. Continue same treatment. 2. Waiting for placement. Reason for continued inpatient stay Substantial Risk for: stable for discharge Time Spent With Patient Time: Total time managing care of this patient today ____ minutes.
[2023-12-02] MEDS: QUEtiapine Fumarate 50 MG TABLET PO ×2 (16:39→20:37)
[2023-12-02 20:00] VITALS: BP 140/67; PULSE 69; RESP 18; TEMP 36.6; O2SAT 94
[2023-12-02] MEDS: Donepezil HCl 10 MG TABLET PO (20:37)
[2023-12-02] MEDS: traZODone HCL 50 MG TABLET PO ×2 (20:37→22:03)
[2023-12-02] MEDS: Magnesium Hydrox/Alum Hydrox 30 ML ORAL.SUSP PO (20:37)
[2023-12-02] MEDS: QUEtiapine Fumarate 25 MG TABLET PO (22:03)
[2023-12-03 08:00] VITALS: BP 145/80; PULSE 85; RESP 16; TEMP 36.5; O2SAT 99
--- NOTE | 2023-12-03 08:15 | P.DS_ITS ---
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: Status: Acute DS: Medications Discharge Medications Home Medications: Home Medications ?Medication ?Instructions ?Recorded ?Confirmed brimonidine 0.15 % eye drops 1 drp ophthalmic (eye) 3XD Glaucoma 07/28/23 07/28/23 naltrexone microspheres 380 mg 380 mg IM ONCE 07/28/23 07/28/23 intramuscular suspension,extended release (Vivitrol) rimegepant 75 mg disintegrating 75 mg PO Q24H PRN Migraine Headache 07/28/23 07/28/23 tablet (Nurtec ODT) thiamine HCl (vitamin B1) 100 mg 100 mg PO 1XD supplement 07/28/23 07/28/23 tablet Mental Status Exam Mental Status Exam Patient Appearance: Well Grooomed and Appropriate Patient Orientation: Person and Situation Level of Consciousness: Awake and Appropriate Patient Behavior: Guarded and Passive Mood Description: Withdrawn Affect Description: Calm and Constricted Patient Cognition Impaired: Yes Ability to Follow Directions: Fair Speech Pattern: Clear Hallucinations: None Delusions: Not Present Thought Process: Distracted and Slowed Thinking Thought Content: positive for [place] and positive for Poverty of Content Judgement: Poor Data Imaging Diagnostic Imaging Impressions Shoulder X-Ray 07/30/23 09:55 IMPRESSION: 1. No metallic foreign body. 2. Calcification adjacent to the humeral head likely on the basis of calcific tendinosis. Orbit X-Ray 07/30/23 11:07 IMPRESSION: 1. No unexpected radiopaque foreign bodies. 2. Clear lungs. 3. Nonobstructive bowel gas pattern. 4. Moderate to large degree of colonic stool burden. Brain MRI 07/30/23 20:40 IMPRESSION: No acute intracranial abnormality. No findings to suggest Wernicke encephalopathy. Hand X-Ray 08/26/23 09:05 IMPRESSION: No fracture seen. DS: Summary Hospital Course Hospital Course: The patient is a 78-year-old male, single, father of 2 adult children, retired [employer] worker, living alone with some social support referred from the emergency room of another hospital for cognitive impairment, auditory hallucinations and disorganized behavior in the context of alcohol use disorder chronic and progressive deterioration in his cognition. The patient was rushed to the emergency room, medically cleared, assessed by crisis and transferring to this facility for psychiatric stabilization. Please see the HPI of the admission note for further details. On admission, the patient was confused but easily redirectable he adamantly denies psychotic symptoms. It was clear that the patient have cognitive disorder and his [place] test was very low with a limited Chemo test. Even though the patient was able to do his activities of daily life. He was started on Aricept titrated up to 10 mg p.o. q.h.s. and later on, added Namenda titrated up to 10 mg p.o. b.i.d. to target dementia. According to the family, the patient had a past history of alcohol abuse and we suspected that the patient could have Wernicke-Korsakoff. Clinically he was pleasant cooperative and easily redirectable with confirmed ablation but the MRI did not show distraction of the mammillary bodies. While he was in the unit, he was cooperative pleasant but he had a very poor short-term memory unable to remember conversations of the day before. We added a low dose of Zoloft due to his anxiety and dysphoria that he tolerated fairly well. Also, we needed to start a low dose of Seroquel that it was spared out during the day to lower anxiety, disorganized behavior and impulsivity. He tolerated fairly well the medication. Medically he was being stable with no changes in his vital signs or blood work. He was severely impaired cognitively, he did not have any insight into his condition, and we tried to look for alternatives for discharge planning. His girlfriend did not want to get involved, her children decided to help him out and at a certain point we started the process of information of healthcare proxy. The patient stabilized very fast but placement was a problem since he did not have financial clearance. Eventually he was referred to the [facility] and he was accepted. Since there were no safety concerns discharge planning was discussed. Time spent discussing smoking cessation with patient: 3 to 10 minutes Status at Discharge Cognitive/behavioral status at discharge: Impaired at baseline Functional status at discharge: independent ambulation Overall status at discharge: patient is back to baseline Time Spent with Patient Time attestation: Total time managing care of this patient today _30___ minutes. Time spent: Less than 30 minutes Discharge Plan Discharge Anticipated Discharge Date/Time: 12/03/23 10:00 Patient Disposition: Xfer SNF Discharge Diagnosis: Wernicke-Korsakoff syndrome Dementia Anxiety disorder NOS Referrals: Physician,Unknown J [Primary Care Provider] - 1 Week Discharge Medications: New quetiapine 25 mg Tablet 12.5 mg PO BID@0830,1330 30 Days Qty: 30 0RF trazodone 50 mg Tablet 50 mg PO BEDTIME MRX1 PRN (Reason: Insomnia) 30 Days Qty: 30 0RF donepezil 10 mg Tablet 10 mg PO BEDTIME 30 Days Qty: 30 0RF sumatriptan succinate 50 mg Tablet 50 mg PO DAILY MRX1 PRN (Reason: Migraine Headache) 30 Days Qty: 5 0RF sertraline 50 mg Tablet 50 mg PO DAILY 30 Days Qty: 30 0RF memantine 10 mg Tablet 10 mg PO BID 30 Days Qty: 60 0RF MAG-AL 200-200 mg/5 mL Suspension 30 ml PO Q6H PRN (Reason: Heartburn/Nausea) 30 Days Qty: 120 0RF quetiapine 50 mg Tablet 50 mg PO DAILY@1700 30 Days Qty: 30 0RF quetiapine 50 mg Tablet 50 mg PO BEDTIME 30 Days Qty: 30 0RF Continued thiamine HCl (vitamin B1) 100 mg Tablet 100 mg PO 1XD 30 Days Qty: 30 0RF Discontinued Nurtec ODT 75 mg Tablet,Disintegrating 75 mg PO Q24H MDD 1 tab/24 hours PRN (Reason: Migraine Headache) Vivitrol 380 mg Suspension,Extended Rel Recon 380 mg IM ONCE Patient Comments: facility administered medication Discharge Orders: Discharge Order (Routine); Ordered 12/03/23 Ordered By: Jonh Kat Diet: Advance to usual diet Activity on Discharge: As tolerated Stand Alone Forms: Patient Portal Discharge page Print Language: Ken[place] Care Plan Goals: Care plan goals achieved in this admission Health Concerns: Continue treatment with primary care physician and other specialists. Plan of Treatment: Continue psychiatric treatment as an outpatient Assessment: Elderly male with a past history of alcohol use disorder who presented to the unit with disorganized behavior poor short-term memory and other medical comorbidities in the context of Wernicke-Korsakoff syndrome. The patient had been stabilized with a low dose of Seroquel, Aricept and Namenda. We added a low dose of Zoloft for anxiety. At this moment the patient is ready to be discharged to the community since there were no safety concerns.
[2023-12-03] MEDS: Sertraline HCL 50 MG TABLET PO (08:24)
[2023-12-03] MEDS: QUEtiapine Fumarate 25 MG TABLET 12.5 MG PO (08:24)
[2023-12-03] MEDS: Memantine HCl 10 MG TABLET PO (08:24)
[2023-12-03] MEDS: Brimonidine Tartrate 0.2% Oph 5 ML BOTTLE 1 DROP EYE-BOTH (08:25)
[2023-12-03] MEDS: Thiamine HCL 100 MG TABLET PO (08:25)
[2023-12-03] MEDS: QUEtiapine Fumarate 25 MG TABLET PO (09:35)
== END 2023-12-03 11:28 | disposition skilled nursing facility (03) | DRG 882 ==
PROVIDERS: Clinical Nurse Specialist Psychiatric/Mental Health, Adult; Physician Assistant; Social Worker; Admitting Provider Psychiatry & Neurology Psychiatry; Visit Provider Psychiatry & Neurology Psychiatry
DX: F43.25 Adjustment disorder with mixed disturbance of emotions and conduct (principal); L03.114 Cellulitis of left upper limb; R41.1 Anterograde amnesia; F10.96 Alcohol use, unspecified with alcohol-induced persisting amnestic disorder; F03.90 Unspecified dementia, unspecified severity, without behavioral disturbance, psychotic disturbance, mood disturbance, and anxiety; Z20.822 Contact with and (suspected) exposure to COVID-19; Z87.891 Personal history of nicotine dependence; Z79.899 Other long term (current) drug therapy
CPT/HCPCS: 0241U; 36415; 70551; 73030; 73120; 80053; 80061; 81001; 82607; 82746; 85025

== ENCOUNTER → 2023-07-28 15:12 | Outpatient (BNV) | payer MEDICARE, OTHER, SELFPAY | PROVIDERS: Admitting Provider Psychiatry & Neurology Psychiatry; Visit Provider Psychiatry & Neurology Psychiatry | DX: F10.96 Alcohol use, unspecified with alcohol-induced persisting amnestic disorder (principal); E51.2 Wernicke's encephalopathy; F03.90 Unspecified dementia, unspecified severity, without behavioral disturbance, psychotic disturbance, mood disturbance, and anxiety | CPT/HCPCS: 90792; 99231; 99232; 99238 ==

== ENCOUNTER → 2023-07-28 15:12 | Outpatient (BNV) | payer OTHER, SELFPAY | PROVIDERS: Admitting Provider Psychiatry & Neurology Psychiatry; Visit Provider Physician Assistant | DX: Z02.2 Encounter for examination for admission to residential institution (principal) | CPT/HCPCS: 99429 ==

== ENCOUNTER → 2023-07-28 15:12 | Outpatient (BNV) | payer MEDICARE, OTHER, SELFPAY | PROVIDERS: Admitting Provider Psychiatry & Neurology Psychiatry; Visit Provider Psychiatry & Neurology Psychiatry | DX: F10.96 Alcohol use, unspecified with alcohol-induced persisting amnestic disorder (principal); E51.2 Wernicke's encephalopathy; F03.90 Unspecified dementia, unspecified severity, without behavioral disturbance, psychotic disturbance, mood disturbance, and anxiety | CPT/HCPCS: 99231; 99499 ==